=== PATIENT | male | born 1955 | race Caucasian/White ===

== ENCOUNTER 2016-09-06 15:48 | Inpatient (IN) | payer OTHER ==
[~2016-09-06] VITALS: Ht 167.6 cm; Wt 53.1 kg
[~2016-09-06 15:48] MED LIST: BICA50TA4 PO; DEC2 PO; DOCU-144 PO; DOCU100C26 PO; ENOX100D2 SC; ESCI10TA48 PO; HYDR2TAB15 PO; LACT20SO12 PO; LORA2VIA3 IV; MECL-77 PO; METH12VI SC; MORP-72 PO; ONDA4VIA2 IV; PANT40TA4 PO; POLY17PO6 GTB; SENN-117 PO; TYL500 PO; ZOLP5TAB PO
[2016-09-06] MEDS ORDERED: SOD CHLORIDE 0.9% 1,000 ML IV STA (18:05)
--- NOTE | 2016-09-06 18:34 | RADRPT ---
PROCEDURE: XR Chest. CLINICAL INDICATION: Abdominal pain. TECHNIQUE: Single frontal view of the chest was obtained. COMPARISON: 07/04/2016. FINDINGS: Cardiomediastinal silhouette appears normal Pulmonary vasculature appears normal. Lung banuelos appear clear. Costophrenic angles are well defined. The osseous elements appear intact. IMPRESSION: 1. No evidence for active cardiopulmonary disease. RPTAT: [facility] Paxton Davis Physician Date Time Electronically viewed and signed by Paxton Davis Physician on 09/06/2016 18:34 /
--- NOTE | 2016-09-06 18:44 | RADRPT ---
PROCEDURE: XR Pelvis 1 View. CLINICAL INDICATION: Pelvic pain TECHNIQUE: Single AP view of the pelvis. COMPARISON: CT July 04, 2016 FINDINGS: The osseous structures are intact. Diffuse patchy sclerosis is identified throughout all of the vis ualized osseous structures. Moderate narrowing of the bilateral hip joints is identified. Mild dege nerative changes are identified in the visualized lower lumbar spine and pubic symphysis. Soft tissu es surrounding the pelvis appear normal. IMPRESSION: Diffuse patchy sclerosis throughout all of the visualized osseous structures. 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 Degenerative changes in the lower lumbar spine and pubic symphysis. If further characterization is needed repeat CT or MRI could be helpful. RPTAT: AA .Danielito Rapp MD, Date Time Electronically viewed and signed by .Danielito Rapp MD, on 09/06/2016 18:44 .P/
[2016-09-06] MEDS ORDERED: ESCI5TAB10 PO (19:04)
[2016-09-06] MEDS ORDERED: MEG40/1 PO (19:04)
[2016-09-06] MEDS ORDERED: PANT40TA4 PO (19:05)
[2016-09-06] MEDS ORDERED: MORP15TA92 PO (19:06)
[2016-09-06] MEDS ORDERED: ONDA4TAB95 PO (19:07)
[2016-09-06] MEDS ORDERED: METH12VI SC (19:07)
[2016-09-06] MEDS ORDERED: LORA0.5T PO (19:08)
[2016-09-06] MEDS ORDERED: ZOLP5TAB6 PO (19:10)
[2016-09-06] MEDS ORDERED: LACT10SO5 PO (19:12)
[2016-09-06] MEDS ORDERED: HYDR4TAB PO (19:14)
[2016-09-06 20:20] LABS: ALBUMIN 2.9 g/dl (3.3-4.9); INR 1.4; PROTIME 17.2 Sec (12.2-14.2); PT RATIO 1.3
[2016-09-06 20:21] LABS: CHLORIDE 92 mmol/L (97-110); PARTIAL THROMBOPLASTIN TIME 46.3 Sec (25.0-35.0); SODIUM 131 mmol/L (135-144)
[2016-09-06 20:23] LABS: ASPARTATE AMINO TRANSFERASE 67 IU/L (15-46); BILIRUBIN,INDIRECT 0.6 mg/dl (0-1.1); BILIRUBIN,TOTAL 0.6 mg/dl (0.2-1.3); CARBON DIOXIDE 28 mmol/L (21-31); CREATININE 0.75 mg/dl (0.61-1.24)
[2016-09-06 20:24] LABS: ALANINE AMINOTRANSFERASE 35 IU/L (13-69); ALKALINE PHOSPHATASE 1073 IU/L (42-121); BLOOD UREA NITROGEN 25 mg/dl (7-20); CALCIUM 8.3 mg/dl (8.4-10.2); GLUCOSE 145 mg/dl (70-220); TOTAL PROTEIN 6.3 g/dl (6.1-8.1)
[2016-09-06 20:32] LABS: ALBUMIN/GLOBULIN RATIO 0.85; ANION GAP 15 (8-16)
[2016-09-06 20:41] LABS: HEMATOCRIT 21.1 % (42.0-52.0); MEAN CORPUSCULAR HEMOGLOBIN 26.5 pg (29.0-33.0); MEAN CORPUSCULAR HGB CONC 33.2 g/dl (32.0-37.0); MEAN CORPUSCULAR VOLUME 79.7 fl (82.0-101.0); MEAN PLATELET VOLUME 8.6 fl (7.4-10.4); PLATELET COUNT 55 10^3/UL (140-440); RED BLOOD COUNT 2.64 10^6/ul (4.70-6.10); RED CELL DISTRIBUTION WIDTH 22.1 % (11.5-14.5); UNCORRECTED WBC 5.8 10^3/ul (4.8-10.8); WHITE BLOOD COUNT 5.8 10^3/ul (4.8-10.8)
[2016-09-06 20:48] LABS: CONDITION 1; LH ANALYZER COMMENTS 1
[2016-09-06 20:53] LABS: TROPONIN-I < 0.012 ng/ml (0.00-0.12)
--- NOTE | 2016-09-06 21:12 | ERA ---
ER Documentation Chief Complaint Date/Time DATE: 09/06/16 TIME: 20:58 Chief Complaint sent by pmd for low bp, more confused than normal HPI 60-year-old man referred here by his radiation oncologist for weakness and dehydration. 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 His is having trouble managing his symptoms at home and states he has not been eating or drinking much over the last week and has been feeling more and more weak lately. He has complaints of generalized weakness to his lower extremities and family states she is dehydrated. He has had no blood per rectum or melena, no fevers or chills, no cough, no complaints of chest pain or shortness of breath. He has not recently had chemotherapy or hormonal therapy. Patient has been receiving heavy doses of oral opioid therapy for pain control. ROS All systems reviewed and are negative except as per history of present illness. Medications Home Meds Active Scripts Meclizine Hcl* (Meclizine Hcl*) 25 Mg Tablet, 25 MG PO TID for 7 Days, TAB Prov:KENDAL BELLO 08/04/16 Polyethylene Glycol* (Miralax*) 17 Gm Powd.pack, 17 GM GTB DAILY for 7 Days Prov:KENDAL BELLO 08/04/16 Reported Medications Hydromorphone Hcl* (Hydromorphone Hcl*) 4 Mg Tablet, 4 MG PO Q6 Y for PAIN, TAB 09/06/16 Lactulose* (Lactulose*) 10 Gm/15 Ml Solution, 30 ML PO Q8, ML 09/06/16 Zolpidem Tartrate* (Zolpidem Tartrate*) 5 Mg Tablet, 10 MG PO QHS Y for INSOMNIA , #30 TAB 09/06/16 Lorazepam* (Lorazepam*) 0.5 Mg Tablet, 0.5 MG PO Q6, TAB 09/06/16 Ondansetron Hcl* (Ondansetron Hcl*) 4 Mg Tablet, 4 MG PO Q6H Y for NAUSEA AND/ OR VOMITING, TAB 09/06/16 Methylnaltrexone [place]* (Relistor*) 12 Mg/0.6 Ml Vial, 12 MG SC Q48H, VIAL 09/06/16 Morphine Sulfate* (Ms Contin*) 15 Mg Tablet.sa, 15 MG PO Q12, TAB 09/06/16 Pantoprazole* (Pantoprazole*) 40 Mg Tablet.dr, 40 MG PO AC BREAKFAST, TAB 09/06/16 Megestrol Acetate* (Megestrol Acetate*) 400 Mg/10 Ml Susp, 400 MG PO BID, ML 09/06/16 Escitalopram Oxalate* (Escitalopram Oxalate*) 5 Mg Tablet, 5 MG PO DAILY, #30 TAB 09/06/16 Docusate Sodium* (Doc-Q-Lace*) 100 Mg Capsule, 100 MG PO BID Y for CONSTIPATION , CAP 05/26/16 Bicalutamide* (Bicalutamide*) 50 Mg Tablet, 50 MG PO QAM, TAB 05/26/16 Discontinued Scripts Enoxaparin Sodium (Enoxaparin Sodium) 100 Mg/1 Ml Syringe, 95 MG SC Q24H for 7 Days Prov:KENDAL BELLO 08/04/16 Docusate Sodium* (Colace*) 100 Mg Capsule, 100 MG PO BID Y for CONSTIPATION for 7 Days, CAP Prov:KENDAL BELLO 08/04/16 Dexamethasone* (Decadron*) 2 Mg Tab, 6 MG PO BID for 7 Days, TAB Prov:KENDAL BELLO 08/04/16 Acetaminophen* (Tylenol*) 500 Mg Tab, 500 MG PO Q4H Y for PAIN AND OR ELEVATED TEMP for 7 Days, TAB Prov:KENDAL BELLO 08/04/16 Escitalopram Oxalate* (Escitalopram Oxalate*) 10 Mg Tablet, 5 MG PO DAILY for 7 Days, TAB Prov:KENDAL BELLO 08/04/16 Hydromorphone Hcl* (Dilaudid*) 2 Mg Tablet, 4 MG PO Q4H Y for PAIN for 7 Days, TAB Prov:KENDAL BELLO 08/04/16 Lactulose* (Cephulac*) 20 Gm/30 Ml Soln, 30 GM PO Q8 Y for CONSTIPATION for 7 Days Prov:KENDAL BELLO 08/04/16 Lorazepam (Lorazepam) 2 Mg/1 Ml Vial, 0.5 MG IV Q6H Y for ANXIETY for 7 Days, VIAL Prov:KENDAL BELLO 08/04/16 Methylnaltrexone [place]* (Relistor*) 12 Mg/0.6 Ml Vial, 12 MG SC Q48H for 7 Days, VIAL Prov:KENDAL BELLO 08/04/16 Ondansetron Hcl* (Ondansetron Hcl* Inj) 4 Mg/2 Ml Vial, 4 MG IV Q6H Y for NAUSEA AND/OR VOMITING for 7 Days, VIAL Prov:KENDAL BELLO 08/04/16 Morphine Sulfate* (Ms Contin ER*) 15 Mg Tabsr, 45 MG PO BID for 7 Days, TAB Prov:KENDAL BELLO 08/04/16 Pantoprazole* (Pantoprazole*) 40 Mg Tablet.dr, 40 MG PO DAILY@06 for 7 Days Prov:KENDAL BELLO 08/04/16 Sennosides/Docusate Sodium (Senna-Time S Tablet) 1 Each Tablet, 2 TAB PO BID for 7 Days, TAB Prov:KENDAL BELLO 08/04/16 Zolpidem Tartrate (Ambien Jhony) 5 Mg Tablet, 10 MG PO HS Y for INSOMNIA for 7 Days, TAB Prov:KENDAL BELLO 08/04/16 Allergies Allergies: Coded Allergies: No Known Allergy (Unverified , 09/06/16) PMhx/Soc Metastatic prostate cancer, T12 spinal canal stenosis, recurrent UTIs, anemia, left calf DVT History of Surgery: No Anesthesia Reaction: No Hx 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 Disorder: No Hx Respiratory Disorders: No Hx Cardiac Disorders: No Hx Psychiatric Problems: No Hx Miscellaneous Medical Probl: Yes (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, PNA, discogenic disease) Hx Alcohol Use: No Hx Substance Use: No Hx Tobacco Use: No Smoking Status: Never smoker FmHx Family History: No diabetes Physical Exam Vitals Vital Signs Date Time Temp Pulse Resp B/P Pulse Ox O2 Delivery O2 Flow Rate FiO2 09/06/16 19:33 110 90/62 09/06/16 19:18 Nasal Cannula 09/06/16 16:59 115/63 09/06/16 15:53 97.3 133 18 97/60 96 Physical Exam GENERAL: Elderly, dehydrated man, appears sedate secondary to heavy opioid use HEENT: Dry mucous membranes, pale conjunctiva, no cervical spine tenderness or step-off deformities, no goiter, no jaundice or icterus, extraocular movements intact without pain. No submandibular induration, and no pharyngeal erythema NEURO: Alert and oriented 1, no focal deficits or facial asymmetry, pupils constricted and minimally reactive, able to answer simple questions and follows simple commands CARDIAC: Tachycardic and regular, no murmurs rubs or gallops LUNGS: Clear bilaterally no wheezing crackles or stridor ABDOMEN: Soft nontender, no guarding, no rigidity, no rebound, no psoas sign no obturator sign. Normoactive bowel sounds SKIN: Warm and dry to touch, no abrasions, contusions, or hematomas, no lacerations, no ecchymosis, no target lesions, and without ulcers EXTREMITIES: No clubbing cyanosis or edema, calves are bilaterally symmetrical, no Homans sign, no popliteal cord sign. Distal pulses equal and bilateral PSYCH: Normal affect without agitation or irritability Result Diagram: 09/06/16194409/06/161944 Results 24 hrs Laboratory Tests Test 09/06/16 19:45 Activated Partial Thromboplast Time 46.3Sec Alanine Aminotransferase (ALT/SGPT) 35IU/L Albumin 2.9g/dl Albumin/Globulin Ratio 0.85 Alkaline Phosphatase 1073IU/L Anion Gap 15 Aspartate Amino Transf (AST/SGOT) 67IU/L Blood Morphology Comment Blood Urea Nitrogen 25mg/dl Calcium Level 8.3mg/dl Carbon Dioxide Level 28mmol/L Chloride Level 92mmol/L Creatinine 0.75mg/dl Direct Bilirubin 0.00mg/dl Globulin 3.40g/dl Glucose Level 145mg/dl Hematocrit 21.1% Hemoglobin 7.0g/dl INR International Normalized Ratio 1.40 Indirect Bilirubin 0.6mg/dl Lipase < 10U/L Mean Corpuscular Hemoglobin 26.5pg Mean Corpuscular Hemoglobin Concent 33.2g/dl Mean Corpuscular Volume 79.7fl Mean Platelet Volume 8.6fl Nucleated Red Blood Cells # 10^3/ul Platelet Count 5510^3/UL Potassium Level 4.0mmol/L Prothrombin Time 17.2Sec Prothrombin Time Ratio 1.3 Red Blood Count 2.6410^6/ul Red Cell Distribution Width 22.1% Sodium Level 131mmol/L Total Bilirubin 0.6mg/dl Total Protein 6.3g/dl Troponin I < 0.012ng/ml White Blood Count 5.810^3/ul Current Medications Medications (Trade) Dose Ordered Sig/Salma Route PRN Reason Start Time Stop Time Status Last Admin Dose Admin Sodium Chloride (NS) 1,000 ml @ 2,000 mls/hr Q30M STAT IV 09/06/16 18:05 09/06/16 18:34 DC 09/06/16 18:05 Procedures/MDM IV line was established patient was placed on air sampling and monitoring rhythm strip revealed a sinus tachycardia at 110 bpm with upright P and T waves. Patient was afebrile but hypotensive. I administered 2 L normal saline intravenously for dehydration and initial hypotension. One view chest x-ray performed, read by me and there are no acute infiltrates, no pneumothorax, no air under the diaphragm. There is patchy sclerotic lesions to the humerus bilaterally consistent with metastatic disease. One view pelvis x-ray performed, read by me no acute fracture or dislocations noted, diffuse sclerotic lesions noted throughout the bones consistent with metastatic disease. EKG performed, read by me revealed a sinus tachycardia at 114 bpm, normal axis, no acute ST changes, narrow QRS complex. CBC revealed anemia with a hemoglobin of 7 and given his initial hypotension I ordered transfusion 2 units PRBCs IV over 4 hours. Electrolytes revealed dehydration with a BUN/creatinine of 25/0.8, liver function tests reveal elevated alkaline phosphatase consistent with bony metastasis. Urine analysis is also been ordered if positive I will treat here with IV antibiotics. Critical Care: Time: 31 minutes, this was time separate from other procedures. Treatments/Evaluations: Close monitoring and treatment of unstable vital signs, cardiorespiratory, and neurologic status, while maintaining tight balance of fluid, respiratory, and cardiac interventions. Patient was initially hypotensive upon arrival of the blood pressure has improved. He will be admitted for continued medical management and pain control. Departure Diagnosis: Primary Impression: Hypotension Qualified Code: I95.9 - Hypotension, unspecified hypotension type Additional Impressions: Dehydration Anemia Qualified Code: D64.9 - Anemia, unspecified type Intractable pain Prostate carcinoma Condition: AMRLY Loaiza MD Sep 06, 2016 21:09
[2016-09-06 21:57] LABS: ADD UMIC YES; URINE BILIRUBIN (Dip) 2+ (NEGATIVE); URINE BLOOD (Dip) NEGATIVE (NEGATIVE); URINE COLOR AMBER (YELLOW); URINE GLUCOSE (Dip) NEGATIVE (NEGATIVE); URINE KETONES (Dip) 15 (NEGATIVE); URINE LEUKOCYTE ESTERASE (Dip) NEGATIVE (NEGATIVE); URINE NITRITE (Dip) POSITIVE (NEGATIVE); URINE TOTAL PROTEIN (Dip) 1+ (NEGATIVE); URINE UROBILINOGEN (Dip) 1.0 E.U./dL (0.1-1.0)
[2016-09-06 22:04] LABS: LYMPHOCYTES # 0.5 10^3/ul (0.8-2.9); MONOCYTE # 0.8 10^3/ul (0.3-0.9); NEUTROPHIL # 3.7 10^3/ul (1.6-7.5)
[2016-09-06 22:05] LABS: PLATELET ESTIMATE PLT APPEAR DECREASED
--- NOTE | 2016-09-06 22:11 | RADRPT ---
PROCEDURE: CT BRAIN WITHOUT CONTRAST CLINICAL INDICATION: 60 year old male with change in mental status. TECHNIQUE: The study was performed utilizing [employer] VCT 64-slice CT scanner. Direct axial sections were obtained from the foramen magnum to the vertex without the use of intravenous contrast material. Sagittal and coronal reformations were obtained. The images were viewed on a PACS workst ation. CTD/vol = 44.3 mGy; Total Exam DLP = 720.2 mGy-cm. COMPARISON: None. FINDINGS: There is mild prominence of the sulci and cisternal spaces consistent with diffuse volume loss. Oth erwise, the ventricles have a normal shape and position. There is no evidence for mass effect or mid line shift. 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 There is no evidence for acute intra or extra-axial blood. The bony calvarium is intact. There is mild muc osal thickening identified within the dependent portion of the sphenoid sinuses bilaterally. The pa rtially visualized mastoid air cells are without significant soft tissue. IMPRESSION: 1. Mild diffuse volume loss. 2. 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 3. Mild mucosal thickening sphenoid sinuses. .Capo Krishnamurthy MD, MD Date Time Electronically viewed and signed by .Capo Krishnamurthy MD, on 09/06/2016 22:11 .M/
[2016-09-06 22:16] LABS: ICTOTEST NEGATIVE (NEGATIVE); SQUAMOUS EPITHELIAL CELL,UR FEW; URINE RBCS NONE SEEN /HPF (0)
[2016-09-06 22:17] LABS: BACTERIA,URINE MANY
--- NOTE | 2016-09-06 23:18 | HP ---
Date/Time of Note Date/Time of Note DATE: 09/06/16 TIME: 23:16 Assessment/Plan VTE Prophylaxis VTE Prophylaxis Intervention: other Assessment/Plan Assessment/Plan 1.Hypotension sec to Hypotension - ivf - monitor labs 2.Dehydration/slightly elevated BUN - Cont IVF - monitor BUN/CR- will et nephrology consult when needed. 3.Anemia - monitor H/H 4.Intractable pain/ Acute on chronic back pain. - pain management consult appreciated Dilaudid p.r.n. for breakthrough pain. 5.Metastatic prostate cancer. - sp Radiation therapy by Dr Ghassan Hylton - oncology consult appreciated- Dr Silva - diietary consult 6.Thrombocytopenia. Continue to monitor platelets. - monitor for s/s of bleeding 7. Diffuse osteoblastic osseous metastatic disease per pelvis xray - per oncologist PLAN: Admit to Med Surg See admission orders DW daughter- Kellie, multiple concerns- will get group social worker, lead case manager for placement. Plan of care dw Dr Bergeron/staff. Continue Protonix for peptic ulcer disease prophylaxis. Further recommendations based on clinical course. Plan of care discussed with Dr. Nichols. HPI/ROS Admit Date/Time Admit Date/Time Hx of Present Illness sent by pmd for low bp, more confused than normal HPI 60-year-old man referred here by his radiation oncologist for weakness and dehydration. 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 His is having trouble managing his symptoms at home and states he has not been eating or drinking much over the last week and has been feeling more and more weak lately. He has complaints of generalized weakness to his lower extremities and family states she is dehydrated. He has had no blood per rectum or melena, no fevers or chills, no cough, no complaints of chest pain or shortness of breath. He has not recently had chemotherapy or hormonal therapy. Patient has been receiving heavy doses of oral opioid therapy for pain control. ROS All systems reviewed and are negative except as per history of present illness. Medications Home Meds Active Scripts Meclizine Hcl* (Meclizine Hcl*) 25 Mg Tablet, 25 MG PO TID for 7 Days, TAB Prov:KENDAL BELLO 08/04/16 Polyethylene Glycol* (Miralax*) 17 Gm Powd.pack, 17 GM GTB DAILY for 7 Days Prov:KENDAL BELLO 08/04/16 Reported Medications Hydromorphone Hcl* (Hydromorphone Hcl*) 4 Mg Tablet, 4 MG PO Q6 Y for PAIN, TAB 09/06/16 Lactulose* (Lactulose*) 10 Gm/15 Ml Solution, 30 ML PO Q8, ML 09/06/16 Zolpidem Tartrate* (Zolpidem Tartrate*) 5 Mg Tablet, 10 MG PO QHS Y for INSOMNIA , #30 TAB 09/06/16 Lorazepam* (Lorazepam*) 0.5 Mg Tablet, 0.5 MG PO Q6, TAB 09/06/16 Ondansetron Hcl* (Ondansetron Hcl*) 4 Mg Tablet, 4 MG PO Q6H Y for NAUSEA AND/ OR VOMITING, TAB 09/06/16 Methylnaltrexone [place]* (Relistor*) 12 Mg/0.6 Ml Vial, 12 MG SC Q48H, VIAL 09/06/16 Morphine Sulfate* (Ms Contin*) 15 Mg Tablet.sa, 15 MG PO Q12, TAB 09/06/16 Pantoprazole* (Pantoprazole*) 40 Mg Tablet.dr, 40 MG PO AC BREAKFAST, TAB 09/06/16 Megestrol Acetate* (Megestrol Acetate*) 400 Mg/10 Ml Susp, 400 MG PO BID, ML 09/06/16 Escitalopram Oxalate* (Escitalopram Oxalate*) 5 Mg Tablet, 5 MG PO DAILY, #30 TAB 09/06/16 Docusate Sodium* (Doc-Q-Lace*) 100 Mg Capsule, 100 MG PO BID Y for CONSTIPATION , CAP 05/26/16 Bicalutamide* (Bicalutamide*) 50 Mg Tablet, 50 MG PO QAM, TAB 05/26/16 Discontinued Scripts Enoxaparin Sodium (Enoxaparin Sodium) 100 Mg/1 Ml Syringe, 95 MG SC Q24H for 7 Days Prov:KENDAL BELLO 08/04/16 Docusate Sodium* (Colace*) 100 Mg Capsule, 100 MG PO BID Y for CONSTIPATION for 7 Days, CAP Prov:KENDAL BELLO 08/04/16 Dexamethasone* (Decadron*) 2 Mg Tab, 6 MG PO BID for 7 Days, TAB Prov:KENDAL BELLO 08/04/16 Acetaminophen* (Tylenol*) 500 Mg Tab, 500 MG PO Q4H Y for PAIN AND OR ELEVATED TEMP for 7 Days, TAB Prov:KENDAL BELLO 08/04/16 Escitalopram Oxalate* (Escitalopram Oxalate*) 10 Mg Tablet, 5 MG PO DAILY for 7 Days, TAB Prov:KENDAL BELLO 08/04/16 Hydromorphone Hcl* (Dilaudid*) 2 Mg Tablet, 4 MG PO Q4H Y for PAIN for 7 Days, TAB Prov:KENDAL BELLO 08/04/16 Lactulose* (Cephulac*) 20 Gm/30 Ml Soln, 30 GM PO Q8 Y for CONSTIPATION for 7 Days Prov:KENDAL BELLO 08/04/16 Lorazepam (Lorazepam) 2 Mg/1 Ml Vial, 0.5 MG IV Q6H Y for ANXIETY for 7 Days, VIAL Prov:KENDAL BELLO 08/04/16 Methylnaltrexone [place]* (Relistor*) 12 Mg/0.6 Ml Vial, 12 MG SC Q48H for 7 Days, VIAL Prov:KENDAL BELLO 08/04/16 Ondansetron Hcl* (Ondansetron Hcl* Inj) 4 Mg/2 Ml Vial, 4 MG IV Q6H Y for NAUSEA AND/OR VOMITING for 7 Days, VIAL Prov:KENDAL BELLO 08/04/16 Morphine Sulfate* (Ms Contin ER*) 15 Mg Tabsr, 45 MG PO BID for 7 Days, TAB Prov:KENDAL BELLO 08/04/16 Pantoprazole* (Pantoprazole*) 40 Mg Tablet.dr, 40 MG PO DAILY@06 for 7 Days Prov:KENDAL BELLO 08/04/16 Sennosides/Docusate Sodium (Senna-Time S Tablet) 1 Each Tablet, 2 TAB PO BID for 7 Days, TAB Prov:KENDAL BELLO 08/04/16 Zolpidem Tartrate (Ambien Jhony) 5 Mg Tablet, 10 MG PO HS Y for INSOMNIA for 7 Days, TAB Prov:KENDAL BELLO 08/04/16 Allergies Allergies: Coded Allergies: No Known Allergy (Unverified , 09/06/16) ROS PMhx/Soc Metastatic prostate cancer, T12 spinal canal stenosis, recurrent UTIs, anemia, left calf DVT History of Surgery: No Anesthesia Reaction: No Hx 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 Disorder: No Hx Respiratory Disorders: No Hx Cardiac Disorders: No Hx Psychiatric Problems: No Hx Miscellaneous Medical Probl: Yes (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, PNA, discogenic disease) Hx Alcohol Use: No Hx Substance Use: No Hx Tobacco Use: No Smoking Status: Never smoker FmHx Family History: No diabetes Subjective hx not possible: other Eyes: no complaints ENT: no complaints Respiratory: no complaints Cardiovascular: no complaints Gastrointestinal: no complaints Genitourinary: no complaints Musculoskeletal: back pain Skin: no complaints Neurologic: no complaints Endocrine: no complaints Lymphatic: no complaints PMH/Family/Social Past Medical History Metastatic prostate cancer, T12 spinal canal stenosis, recurrent UTIs, anemia, left calf DVT, 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, PNA, discogenic disease. Social History Smoking Status: Never smoker Exam/Review of Systems Vital Signs Vitals Vital Signs Date Time Temp Pulse Resp B/P Pulse Ox O2 Delivery O2 Flow Rate FiO2 09/06/16 19:33 110 90/62 09/06/16 19:18 Nasal Cannula 09/06/16 15:53 97.3 18 96 Exam Constitutional: alert, frail, well developed Psych: nl mood/affect Eyes: EOMI, PERRL, nl sclera ENMT: nl external ears & nose Neck: non-tender Respiratory: clear to auscultation Cardiovascular: nl pulses Gastrointestinal: non-tender, soft Musculoskeletal: nl extremities to inspection Extremities: normal pulses 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: nl speech, other Skin: other Lymph: nontender Labs Result Diagram: 09/06/16194409/06/161944 Procedures Procedures PROCEDURE: XR Pelvis 1 View. CLINICAL INDICATION: Pelvic pain TECHNIQUE: Single AP view of the pelvis. COMPARISON: CT July 04, 2016 FINDINGS: The osseous structures are intact. Diffuse patchy sclerosis is identified throughout all of the visualized osseous structures. Moderate narrowing of the bilateral hip joints is identified. Mild degenerative changes are identified in the visualized lower lumbar spine and pubic symphysis. Soft tissues surrounding the pelvis appear normal. IMPRESSION: Diffuse patchy sclerosis throughout all of the visualized osseous structures. Findings are compatible with diffuse osteoblastic osseous metastatic disease. 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 Degenerative changes in the lower lumbar spine and pubic symphysis. PROCEDURE: XR Chest. CLINICAL INDICATION: Abdominal pain. TECHNIQUE: Single frontal view of the chest was obtained. COMPARISON: 07/04/2016. FINDINGS: Cardiomediastinal silhouette appears normal Pulmonary vasculature appears normal. Lung banuelos appear clear. Costophrenic angles are well defined. The osseous elements appear intact. IMPRESSION: 1. No evidence for active cardiopulmonary disease. KENDAL BELLO Sep 06, 2016 23:18
[2016-09-07 00:23] VITALS: TEMP 97.8
[2016-09-07 01:00] VITALS: BP 94/54; PULSE 108; RESP 17
[2016-09-07 01:32] VITALS: BMI 19.6
[2016-09-07] MEDS: LEVOFLOXACIN 250MG/D5W (PMX) 50 ML IVPB SCH (03:06)
[2016-09-07] MEDS: METHYLNALTREXONE 12 MG/0.6 ML VIAL SC SCH (03:06)
[2016-09-07] MEDS: LORAZEPAM 0.5 MG TAB PO SCH ×5 (06:00→23:32)
[2016-09-07] MEDS: LACTULOSE 30ML CUP PO SCH ×3 (06:31→20:52)
[2016-09-07] MEDS: SOD CHLORIDE 0.9% 1,000 ML IV SCH ×3 (06:33→20:53)
[2016-09-07 08:00] VITALS: BP 106/63; PULSE 109; RESP 18
[2016-09-07 08:35] LABS: HEMATOCRIT 23.5 % (42.0-52.0); MEAN CORPUSCULAR HEMOGLOBIN 28.4 pg (29.0-33.0); MEAN CORPUSCULAR HGB CONC 34.1 g/dl (32.0-37.0); MEAN CORPUSCULAR VOLUME 83.4 fl (82.0-101.0); MEAN PLATELET VOLUME 7.7 fl (7.4-10.4); PLATELET COUNT 41 10^3/UL (140-440); RED BLOOD COUNT 2.81 10^6/ul (4.70-6.10); RED CELL DISTRIBUTION WIDTH 18.7 % (11.5-14.5); UNCORRECTED WBC 4.7 10^3/ul (4.8-10.8); WHITE BLOOD COUNT 4.7 10^3/ul (4.8-10.8)
[2016-09-07 08:39] LABS: CONDITION 1; LH ANALYZER COMMENTS 1
[2016-09-07 08:44] LABS: POTASSIUM 3.3 mmol/L (3.5-5.1)
[2016-09-07 08:47] LABS: CALCIUM 7.8 mg/dl (8.4-10.2); CREATININE 0.42 mg/dl (0.61-1.24)
[2016-09-07] MEDS: morphine (ER) 15 MG TAB PO SCH ×2 (09:16→20:52)
[2016-09-07] MEDS: MEGESTROL (40 MG/ML) 10ML CUP PO SCH ×2 (09:16→20:52)
[2016-09-07] MEDS: MECLIZINE 25 MG TAB PO SCH ×3 (09:16→20:51)
[2016-09-07] MEDS: POLYETHYLENE GLYCOL 17 GM PACKET GTB SCH (09:17)
[2016-09-07] MEDS: ESCITALOPRAM 10 MG TAB PO SCH (09:17)
[2016-09-07] MEDS: PANTOPRAZOLE (EC) 40 MG TAB PO SCH (09:20)
[2016-09-07 11:00] LABS: ANISOCYTOSIS 1+; HYPOCHROMASIA 1+; LYMPHOCYTES # 0.2 10^3/ul (0.8-2.9); MONOCYTE # 0.3 10^3/ul (0.3-0.9); NEUTROPHIL # 3.8 10^3/ul (1.6-7.5); NUCLEATED RED BLOOD CELLS% 7.7 /100WBC (0.0-0.0); PLATELET ESTIMATE PLT APPEAR DECREASED
[2016-09-07] MEDS ORDERED: POTASSIUM CHLORIDE (SR) 20 MEQ TAB PO STA (16:55)
[2016-09-07] MEDS: BICALUTAMIDE 50 MG TAB PO SCH (17:31)
[2016-09-07 20:00] VITALS: BP 93/57; PULSE 100; RESP 20
[2016-09-07] MEDS: IMIPENEM-CILAST 500MG IV (PMX) 100 ML IVPB SCH (23:32)
[2016-09-08] MEDS: LEVOFLOXACIN 250MG/D5W (PMX) 50 ML IVPB SCH (00:48)
[2016-09-08] MEDS: LORAZEPAM 0.5 MG TAB PO SCH ×3 (05:36→17:52)
[2016-09-08] MEDS: LACTULOSE 30ML CUP PO SCH ×3 (05:36→21:07)
[2016-09-08] MEDS: IMIPENEM-CILAST 500MG IV (PMX) 100 ML IVPB SCH ×3 (05:36→19:57)
[2016-09-08 06:07] LABS: HEMATOCRIT 23.5 % (42.0-52.0); HEMOGLOBIN 7.9 g/dl (14.0-18.0); LYMPHOCYTES # 0.8 10^3/ul (0.8-2.9); MEAN CORPUSCULAR HEMOGLOBIN 28.4 pg (29.0-33.0); MEAN CORPUSCULAR HGB CONC 33.7 g/dl (32.0-37.0); MEAN CORPUSCULAR VOLUME 84.3 fl (82.0-101.0); MONOCYTE # 0.6 10^3/ul (0.3-0.9); PLATELET COUNT 38 10^3/UL (140-440); RED BLOOD COUNT 2.79 10^6/ul (4.70-6.10); UNCORRECTED WBC 4.4 10^3/ul (4.8-10.8); WHITE BLOOD COUNT 4.4 10^3/ul (4.8-10.8)
[2016-09-08 06:24] LABS: CONDITION 1; LH ANALYZER COMMENTS 1; MEAN PLATELET VOLUME 7.8 fl (7.4-10.4); NUCLEATED RED BLOOD CELLS # 0.2 10^3/ul (0.0-0.0)
[2016-09-08 06:29] LABS: POTASSIUM 3.3 mmol/L (3.5-5.1)
[2016-09-08 06:31] LABS: ALBUMIN/GLOBULIN RATIO 0.76; BILIRUBIN,INDIRECT 0.3 mg/dl (0-1.1); BILIRUBIN,TOTAL 0.3 mg/dl (0.2-1.3); CREATININE 0.36 mg/dl (0.61-1.24); TOTAL PROTEIN 4.6 g/dl (6.1-8.1)
[2016-09-08 06:32] LABS: CALCIUM 7.6 mg/dl (8.4-10.2)
[2016-09-08] MEDS: MEGESTROL (40 MG/ML) 10ML CUP PO SCH ×2 (09:00→21:04)
--- NOTE | 2016-09-08 09:48 | CONS ---
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 Irene Zhu and managed by Dr. Suzan Hernandez, referred to [facility] for weakness and dehydration. He has not seen Dr. Hernandez in awhile. # Anemia and thrombocytopenia, with evidence of myelocytes, metamyelocytes and nucleated RBCs on differential concerning for bone marrow involvement of metastatic prostate cancer - Path smear to be reviewed by pathology - Workup including retic count, iron panel, ferritin, B12, folate, LDH, HIV, Hep panel, and DIC panel ordered - Continue to follow counts, goal > 8, plt > 10 or if bleeding. Will give 1 unit pRBCs today # Metastatic prostate cancer, s/p radiation for cord compression per Dr. Zhu in the past - Requesting records from Dr. Hernandez and Dr. 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 Irene Zhu and managed by Dr. Suzan Hernandez, referred to [facility] for weakness and dehydration. He has not seen Dr. Hernandez in awhile; I do not have those records but have requested them. I do know that he was given Casodex this morning by his nurse. The patient is arousable but quite somnolent due to morphine. He is able to answer in Bengali that he has no pain , and feels well, but cannot answer more details about his treatment or past medical history. Unable to obtain due to somnolence Psychological: nl mood/affect Past Medical History Metastatic prostate cancer with bony mets and h/o T12 spinal canal stenosis, recurrent UTIs, anemia, left calf DVT Social History Smoking Status: Former smoker Exam/Review of Systems Vital Signs Vitals Vital Signs Date Time Temp Pulse Resp B/P Pulse Ox O2 Delivery O2 Flow Rate FiO2 09/07/16 20:00 100.0 100 20 93/57 96 Room Air Intake and Output 09/07/16 09/07/16 09/08/16 15:00 23:00 07:00 Intake Total 1290 ml 50 ml Output Total 550 ml 400 ml Balance 740 ml -350 ml Exam Constitutional: other (somnolent but arousable briefly) Psych: no complaints Head: normocephalic Eyes: nl conjunctiva Neck: non-tender, supple Respiratory: clear to auscultation Cardiovascular: other (tachycardic) Gastrointestinal: non-tender, soft Musculoskeletal: nl extremities to inspection 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: lethargic Results Result Diagram: 09/08/16 0535 09/08/16 0535 Results 24 hrs Laboratory Tests Test 09/08/16 05:35 Alanine Aminotransferase (ALT/SGPT) 31 Albumin 2.0 L Albumin/Globulin Ratio 0.76 Alkaline Phosphatase 680 H Anion Gap 8 Aspartate Amino Transf (AST/SGOT) 53 H Basophils # 0.0 Basophils % 0.3 Blood Morphology Comment Blood Urea Nitrogen 9 Calcium Level 7.6 L Carbon Dioxide Level 26 Chloride Level 104 Creatinine 0.36 L Direct Bilirubin 0.00 Eosinophils # 0.0 Eosinophils % 0.2 Globulin 2.60 Glucose Level 90 Hematocrit 23.5 L Hemoglobin 7.9 L Indirect Bilirubin 0.3 Lymphocytes # 0.8 Lymphocytes % 18.1 Mean Corpuscular Hemoglobin 28.4 L Mean Corpuscular Hemoglobin Concent 33.7 Mean Corpuscular Volume 84.3 Mean Platelet Volume 7.8 Monocytes # 0.6 Monocytes % 13.6 H Neutrophils # 3.0 Neutrophils % 67.8 Nucleated Red Blood Cells # 0.2 H Nucleated Red Blood Cells % 3.5 H Platelet Count 38 L Potassium Level 3.3 L Red Blood Count 2.79 L Red Cell Distribution Width 19.0 H Sodium Level 135 Total Bilirubin 0.3 Total Protein 4.6 #L White Blood Count 4.4 L Medications Medications Current Medications Sodium Chloride (NS) 1,000 ml @ 80 mls/hr [id number] IV Last administered on at 20:53; Admin Dose 80 MLS/HR; Start 09/06/16 at 23:30 Bicalutamide (Casodex) 50 mg QAM PO Last administered on 09/07/16at 17:31; Admin Dose 50 MG; Start 09/07/16 at 09:00 Docusate Sodium (Colace) 100 mg BID PRN PO CONSTIPATION; Start 09/07/16 at 00: 00 Escitalopram Oxalate (Lexapro) 5 mg DAILY PO Last administered on 09/07/16at 09 :17; Admin Dose 5 MG; Start 09/07/16 at 09:00 Hydromorphone HCl (Dilaudid) 4 mg Q6H PRN PO PAIN; Start 09/07/16 at 00:00 Lactulose (Enulose) 20 gm Q8 PO Last administered on 09/08/16at 05:36; Admin Dose 20 GM; Start 09/07/16 at 06:00 Lorazepam (Ativan) 0.5 mg Q6 PO Last administered on 09/08/16 05:36; Admin Dose 0.5 MG; Start 09/07/16 at 00:00 Meclizine HCl (Antivert) 25 mg TID PO Last administered on 09/07/16 20:51; Admin Dose 25 MG; Start 09/07/16 at 09:00 Megestrol Acetate (Megace Susp) 400 mg BID PO Last administered on 09/07/16at 20:52; Admin Dose 400 MG; Start 09/07/16 at 09:00 Methylnaltrexone [place] (Relistor) 12 mg Q48H SC Last administered on at 03:06; Admin Dose 12 MG; Start 09/07/16 at 00:00 Morphine Sulfate (Ms Contin (Er)) 15 mg Q12 PO Last administered on 09/07/16at 20:52; Admin Dose 15 MG; Start 09/07/16 at 09:00 Ondansetron HCl (Zofran Tab) 4 mg Q6H PRN PO NAUSEA AND/OR VOMITING; Start at 00:00 Polyethylene Glycol 17 gm 17 gm DAILY GTB Last administered on 09/07/16 09:17 ; Admin Dose 17 GM; Start 09/07/16 at 09:00 Levofloxacin/ Dextrose (Levaquin 250 Mg/ D5W 50 ml (Pmx)) 50 ml @ 50 mls/hr Q24H IVPB Last administered on 09/08/16at 00:48; Admin Dose 50 MLS/HR; Start 09/07/16 at 00:30 Acetaminophen 500 mg 500 mg Q4H PRN PO PAIN AND OR ELEVATED TEMP; Start at 21:30 Imipenem/ Cilastatin Sodium (Primaxin 500 Mg/ 100 ml (Pmx)) 100 ml @ 100 mls/ hr Q6 IVPB Last administered on 09/08/16at 05:36; Admin Dose 100 MLS/HR; Start 09/08/16 at 00:00 TOBRYON MD Sep 08, 2016 09:44
[2016-09-08] MEDS: MECLIZINE 25 MG TAB PO SCH ×3 (09:58→21:03)
[2016-09-08] MEDS: ESCITALOPRAM 10 MG TAB PO SCH (09:59)
[2016-09-08] MEDS: PANTOPRAZOLE (EC) 40 MG TAB PO SCH (09:59)
[2016-09-08] MEDS: morphine (ER) 15 MG TAB PO SCH ×2 (09:59→21:04)
[2016-09-08] MEDS: POLYETHYLENE GLYCOL 17 GM PACKET GTB SCH (10:00)
[2016-09-08] MEDS: BICALUTAMIDE 50 MG TAB PO SCH (10:07)
[2016-09-08 11:30] LABS: HAAIG REFLEX REFLEX FILED
[2016-09-08 11:49] LABS: INR 1.41; PROTIME 17.3 Sec (12.2-14.2); PT RATIO 1.4
[2016-09-08 11:50] LABS: PARTIAL THROMBOPLASTIN TIME 45.2 Sec (25.0-35.0); THROMBIN TIME 13.6 SEC (13.8-19.1)
[2016-09-08 11:52] LABS: PLATELET COUNT 41 10^3/UL (140-440)
[2016-09-08 12:08] LABS: FIBRIN SPLIT PRODUCT >40 and <80 ug/ml (<10)
[2016-09-08 12:31] LABS: IRON 43 ug/dl (35-150)
[2016-09-08 12:42] LABS: TOTAL IRON BINDING CAPACITY 140 ug/dl (241-421)
[2016-09-08 12:54] LABS: HEPATITIS B CORE ANTIBODY NEGATIVE (NEGATIVE)
[2016-09-08] MEDS: SOD CHLORIDE 0.9% 1,000 ML IV SCH (13:00)
[2016-09-08 13:03] LABS: D-DIMER > 10000.00 ng/ml (<460)
[2016-09-08] MEDS ORDERED: POTASSIUM CHLORIDE (SR) 20 MEQ TAB PO STA (13:04)
[2016-09-08 14:45] VITALS: BP 98/63; PULSE 103; RESP 18
[2016-09-08 15:02] VITALS: BP 103/61; RESP 18
[2016-09-08 19:59] VITALS: BP 108/64; PULSE 108; RESP 20
[2016-09-08] MEDS: ACETAMINOPHEN 500 MG TAB PO PRN (21:03)
[2016-09-09] MEDS: IMIPENEM-CILAST 500MG IV (PMX) 100 ML IVPB SCH ×4 (00:11→18:19)
[2016-09-09] MEDS: METHYLNALTREXONE 12 MG/0.6 ML VIAL SC SCH (00:12)
[2016-09-09] MEDS: LEVOFLOXACIN 250MG/D5W (PMX) 50 ML IVPB SCH (01:19)
[2016-09-09] MEDS: SOD CHLORIDE 0.9% 1,000 ML IV SCH ×2 (01:30→12:37)
[2016-09-09] MEDS: LORAZEPAM 0.5 MG TAB PO SCH ×4 (06:00→18:00)
[2016-09-09] MEDS: PANTOPRAZOLE (EC) 40 MG TAB PO SCH (06:19)
[2016-09-09] MEDS: LACTULOSE 30ML CUP PO SCH ×3 (06:19→21:04)
[2016-09-09 07:30] VITALS: BP 117/74; PULSE 64; RESP 20
--- NOTE | 2016-09-09 08:54 | CONS ---
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 Irene Zhu and managed by Dr. Suzan Hernandez, referred to [facility] for weakness and dehydration. He has not seen Dr. Hernandez in awhile. 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 Would recommend therapeutic anticoagulation lovenox 1 mg/kg Q12 for DIC 2/2 malignancy, and also for history of Left thrombosed calf vein in the setting of malignancy. - Few fragments on smear which can be consistent with DIC, iron panel suggests anemia of chronic inflammation; Vitamin B12/folate WNL - Retic count inappropriately low and bili normal which argues against significant hemolysis though LDH 2523 which may be related to tumor burden - Continue to follow counts, goal > 8, plt > 10 or if bleeding. s/p 1 unit pRBCs yesterday, no new labs today # Metastatic prostate cancer, s/p radiation for cord compression per Dr. Zhu in the past - Requesting records from Dr. Hernandez and Dr. Zhu's office. I was unable to reach Dr. Hernandez or her office staff for records. - Patient is on Casodex, unclear whether receiving Lupron, unclear when last CT scan - Consider chemotherapy # Thrombosed L calf vein - Will repeat dopplers, lovenox as above. Problems: Consultation Date/Type/Reason Admit Date/Time Sep 06, 2016 at 22:01 Initial Consult Date 09/08/16 Type of Consultation: Hematology/Oncology 24 HR Interval Summary Free Text/Dictation Patient is somnolent from morphine but arousable. He does not know much history regarding his prostate cancer, nor does his sister. I called his niece (phone number [phone]), prostate cancer metastasized to the bones. He has been on Casodex, unclear how long. Exam/Review of Systems Vital Signs Vitals Vital Signs Date Time Temp Pulse Resp B/P Pulse Ox O2 Delivery O2 Flow Rate FiO2 09/09/16 07:30 97.8 64 20 117/74 94 Room Air Intake and Output 09/08/16 09/08/16 09/09/16 15:00 23:00 07:00 Intake Total 100 ml 1230 ml 240 ml Output Total 375 ml 600 ml Balance 100 ml 855 ml -360 ml Exam Constitutional: other (somnolent but arousable briefly) Psych: no complaints Head: normocephalic Eyes: nl conjunctiva Neck: non-tender, supple Respiratory: clear to auscultation Cardiovascular: other (tachycardic) Gastrointestinal: non-tender, soft Musculoskeletal: nl extremities to inspection 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: lethargic Results Result Diagram: 09/08/16 1120 09/08/16 0535 Results 24 hrs Laboratory Tests Test 09/08/16 11:20 09/08/16 11:30 Absolute Reticulocyte Count 0.057 Activated Partial Thromboplast Time 45.2 H D-Dimer > 88415.00 H Ferritin > 66887.0 H Fibrinogen 472.0 H Folate 6.6 HIV (1&2) Antibody NEGATIVE Hepatitis B Core Total Antibody NEGATIVE Hepatitis B Surface Antigen NEGATIVE Hepatitis C Antibody NEGATIVE INR International Normalized Ratio 1.41 Iron Level 43 Lactate Dehydrogenase 2523 H Percent Iron Saturation 31 Percent Reticulocyte Count 2.0 H Plasma Fibrin Degradation Products >40 and <80 H Platelet Count 41 L Prothrombin Time 17.3 H Prothrombin Time Ratio 1.4 Thrombin Time 13.6 L Total Iron Binding Capacity 140 L Vitamin B12 Level 960 H Hepatitis A IgM Antibody NON-REACTIVE Medications Medications Current Medications Sodium Chloride (NS) 1,000 ml @ 80 mls/hr [id number] IV Last administered on at 13:00; Admin Dose 80 MLS/HR; Start 09/06/16 at 23:30 Bicalutamide (Casodex) 50 mg QAM PO Last administered on 09/08/16at 10:07; Admin Dose 50 MG; Start 09/07/16 at 09:00 Docusate Sodium (Colace) 100 mg BID PRN PO CONSTIPATION; Start 09/07/16 at 00: 00 Escitalopram Oxalate (Lexapro) 5 mg DAILY PO Last administered on 09/08/16 09 :59; Admin Dose 5 MG; Start 09/07/16 at 09:00 Hydromorphone HCl (Dilaudid) 4 mg Q6H PRN PO PAIN; Start 09/07/16 at 00:00 Lactulose (Enulose) 20 gm Q8 PO Last administered on 09/09/16 06:19; Admin Dose 20 GM; Start 09/07/16 at 06:00 Lorazepam (Ativan) 0.5 mg Q6 PO Last administered on 09/08/16 05:36; Admin Dose 0.5 MG; Start 09/07/16 at 00:00 Meclizine HCl (Antivert) 25 mg TID PO Last administered on 09/08/16 21:03; Admin Dose 25 MG; Start 09/07/16 at 09:00 Megestrol Acetate (Megace Susp) 400 mg BID PO Last administered on 09/08/16 21:04; Admin Dose 400 MG; Start 09/07/16 at 09:00 Methylnaltrexone [place] (Relistor) 12 mg Q48H SC Last administered on at 00:12; Admin Dose 12 MG; Start 09/07/16 at 00:00 Morphine Sulfate (Ms Contin (Er)) 15 mg Q12 PO Last administered on 09/08/16 21:04; Admin Dose 15 MG; Start 09/07/16 at 09:00 Ondansetron HCl (Zofran Tab) 4 mg Q6H PRN PO NAUSEA AND/OR VOMITING; Start at 00:00 Polyethylene Glycol 17 gm 17 gm DAILY GTB Last administered on 09/08/16at 10:00 ; Admin Dose 17 GM; Start 09/07/16 at 09:00 Levofloxacin/ Dextrose (Levaquin 250 Mg/ D5W 50 ml (Pmx)) 50 ml @ 50 mls/hr Q24H IVPB Last administered on 09/09/16 01:19; Admin Dose 50 MLS/HR; Start 09/07/16 at 00:30 Acetaminophen 500 mg 500 mg Q4H PRN PO PAIN AND OR ELEVATED TEMP Last administered on 09/08/16 21:03; Admin Dose 500 MG; Start 09/07/16 at 21:30 Imipenem/ Cilastatin Sodium (Primaxin 500 Mg/ 100 ml (Pmx)) 100 ml @ 100 mls/ hr Q6 IVPB Last administered on 09/09/16at 06:19; Admin Dose 100 MLS/HR; Start 09/08/16 at 00:00 TOBRYON MD Sep 09, 2016 08:53
[2016-09-09] MEDS: POLYETHYLENE GLYCOL 17 GM PACKET GTB SCH (09:00)
[2016-09-09] MEDS: BICALUTAMIDE 50 MG TAB PO SCH (09:43)
[2016-09-09] MEDS: morphine (ER) 15 MG TAB PO SCH ×2 (09:44→21:03)
[2016-09-09] MEDS: ESCITALOPRAM 10 MG TAB PO SCH (09:44)
[2016-09-09] MEDS: MECLIZINE 25 MG TAB PO SCH ×3 (09:44→21:03)
[2016-09-09] MEDS: MEGESTROL (40 MG/ML) 10ML CUP PO SCH ×2 (09:44→21:03)
--- NOTE | 2016-09-09 11:47 | RADRPT ---
PROCEDURE: US DVT. CLINICAL INDICATION: Bilateral lower extremity pain and swelling. TECHNIQUE: Multiple longitudinal and transverse images of the bilateral lower extremity veins were obtained with bowman scale and color Doppler imaging. 2D grayscale measurements with compression, co sarah Doppler flow, and augmentation was performed. The calf veins were interrogated as well. COMPARISON: 07/10/2016 FINDINGS: The bilateral common femoral, superficial femoral and popliteal veins are normally compressible thro ughout. Color flow demonstrates normal filling of the vessel. Normal waveforms are visualized and there is normal response to augmentation. The calf veins are visualized and are equally unremarkabl e. IMPRESSION: 1. No evidence of a deep vein thrombosis involving either lower extremity. 2. No residual thrombus identified within the left calf veins on the current study. RPTAT: TT .Keyur Jefferson MD, MD Date Time Electronically viewed and signed by .Keyur Jefferson MD, MD on 09/09/2016 11:46 .d/
[2016-09-09] MEDS: ENOXAPARIN 60 MG/0.6 ML SYG SC SCH (12:39)
[2016-09-09 13:44] LABS: ALBUMIN 2.2 g/dl (3.3-4.9); CHLORIDE 105 mmol/L (97-110)
[2016-09-09 13:45] LABS: POTASSIUM 3.9 mmol/L (3.5-5.1); SODIUM 137 mmol/L (135-144)
[2016-09-09 13:47] LABS: ALANINE AMINOTRANSFERASE 29 IU/L (13-69); ALBUMIN/GLOBULIN RATIO 0.78; ALKALINE PHOSPHATASE 668 IU/L (42-121); ANION GAP 14 (8-16); ASPARTATE AMINO TRANSFERASE 38 IU/L (15-46); BILIRUBIN,INDIRECT 0.3 mg/dl (0-1.1); BILIRUBIN,TOTAL 0.3 mg/dl (0.2-1.3); BLOOD UREA NITROGEN 9 mg/dl (7-20); CARBON DIOXIDE 22 mmol/L (21-31); CREATININE 0.34 mg/dl (0.61-1.24)
[2016-09-09 13:48] LABS: CALCIUM 7.7 mg/dl (8.4-10.2); GLUCOSE 116 mg/dl (70-220)
[2016-09-09 13:50] LABS: BASOPHILS % 0.2 % (0.0-2.0); HEMOGLOBIN 9.9 g/dl (14.0-18.0); LYMPHOCYTES # 0.9 10^3/ul (0.8-2.9); LYMPHOCYTES % 16.2 % (15.0-51.0); MEAN CORPUSCULAR HEMOGLOBIN 27.6 pg (29.0-33.0); MEAN CORPUSCULAR HGB CONC 33.2 g/dl (32.0-37.0); MEAN CORPUSCULAR VOLUME 83.2 fl (82.0-101.0); MEAN PLATELET VOLUME 8.2 fl (7.4-10.4); MONOCYTE # 0.4 10^3/ul (0.3-0.9); MONOCYTES % 8.3 % (0.0-11.0); NEUTROPHILS % 75.3 % (39.0-77.0); PLATELET COUNT 42 10^3/UL (140-440); RED BLOOD COUNT 3.61 10^6/ul (4.70-6.10); RED CELL DISTRIBUTION WIDTH 19.3 % (11.5-14.5); UNCORRECTED WBC 5.3 10^3/ul (4.8-10.8); WHITE BLOOD COUNT 5.3 10^3/ul (4.8-10.8)
--- NOTE | 2016-09-09 13:51 | PN ---
Date/Time of Note Date/Time of Note DATE: 09/09/16 TIME: 13:51 Assessment/Plan VTE Prophylaxis VTE Prophylaxis Intervention: LMWH Lines/Catheters IV Catheter Type (from Nrsg): Saline Lock Urinary Cath still in place: Yes Reason Cath still needed: urinary retention Assessment/Plan Assessment/Plan 1.Hypotension sec to Hypotension - ivf - monitor labs 2.Dehydration/slightly elevated BUN - Cont IVF - monitor BUN/CR- will et nephrology consult when needed. 3.Anemia - monitor H/H 4.Intractable pain/ Acute on chronic back pain. - pain management consult appreciated Dilhenryid p.r.n. for breakthrough pain. 5.Metastatic prostate cancer. - sp Radiation therapy by Dr Ghassan Hylton - oncology consult appreciated- Dr Silva - diietary consult 6.Thrombocytopenia. Continue to monitor platelets. - monitor for s/s of bleeding 7. 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 Hypokalemia - replet K, am labs Dw Dr Nichols Subjective 24 Hr Interval Summary Free Text/Dictation Late entry for09/08 Eyes: no complaints ENT: no complaints Respiratory: no complaints Cardiovascular: no complaints Gastrointestinal: no complaints Genitourinary: no complaints Musculoskeletal: back pain Skin: no complaints Neurologic: no complaints Endocrine: no complaints Lymphatic: no complaints Exam/Review of Systems Vital Signs Vitals Vital Signs Date Time Temp Pulse Resp B/P Pulse Ox O2 Delivery O2 Flow Rate FiO2 09/09/16 07:30 97.8 64 20 117/74 94 Room Air Intake and Output 09/08/16 09/08/16 09/09/16 15:00 23:00 07:00 Intake Total 100 ml 1230 ml 240 ml Output Total 375 ml 600 ml Balance 100 ml 855 ml -360 ml Exam Constitutional: alert Psych: nl mood/affect Head: atraumatic Eyes: PERRL, nl sclera ENMT: nl external ears & nose Neck: non-tender Respiratory: clear to auscultation Cardiovascular: nl pulses Gastrointestinal: non-tender, soft Musculoskeletal: nl extremities to inspection 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: nl mental status, nl speech Skin: nl turgor Lymph: nontender Results Result Diagram: 09/08/16 1120 09/08/16 0535 Medications Medications Current Medications Sodium Chloride (NS) 1,000 ml @ 80 mls/hr [id number] IV Last administered on 12:37; Admin Dose 80 MLS/HR; Start 09/06/16 at 23:30 Bicalutamide (Casodex) 50 mg QAM PO Last administered on 09/09/16 09:43; Admin Dose 50 MG; Start 09/07/16 at 09:00 Docusate Sodium (Colace) 100 mg BID PRN PO CONSTIPATION; Start 09/07/16 at 00: 00 Escitalopram Oxalate (Lexapro) 5 mg DAILY PO Last administered on 09/09/16 09 :44; Admin Dose 5 MG; Start 09/07/16 at 09:00 Hydromorphone HCl (Dilaudid) 4 mg Q6H PRN PO PAIN; Start 09/07/16 at 00:00 Lactulose (Enulose) 20 gm Q8 PO Last administered on 09/09/16 06:19; Admin Dose 20 GM; Start 09/07/16 at 06:00 Lorazepam (Ativan) 0.5 mg Q6 PO Last administered on 09/08/16 05:36; Admin Dose 0.5 MG; Start 09/07/16 at 00:00 Meclizine HCl (Antivert) 25 mg TID PO Last administered on 09/09/16 09:44; Admin Dose 25 MG; Start 09/07/16 at 09:00 Megestrol Acetate (Megace Susp) 400 mg BID PO Last administered on 09/09/16 09:44; Admin Dose 400 MG; Start 09/07/16 at 09:00 Methylnaltrexone [place] (Relistor) 12 mg Q48H SC Last administered on 00:12; Admin Dose 12 MG; Start 09/07/16 at 00:00 Morphine Sulfate (Ms Contin (Er)) 15 mg Q12 PO Last administered on 09/09/16 09:44; Admin Dose 15 MG; Start 09/07/16 at 09:00 Ondansetron HCl (Zofran Tab) 4 mg Q6H PRN PO NAUSEA AND/OR VOMITING; Start at 00:00 Polyethylene Glycol 17 gm 17 gm DAILY GTB Last administered on 09/08/16 10:00 ; Admin Dose 17 GM; Start 09/07/16 at 09:00 Levofloxacin/ Dextrose (Levaquin 250 Mg/ D5W 50 ml (Pmx)) 50 ml @ 50 mls/hr Q24H IVPB Last administered on 09/09/16at 01:19; Admin Dose 50 MLS/HR; Start 09/07/16 at 00:30 Acetaminophen 500 mg 500 mg Q4H PRN PO PAIN AND OR ELEVATED TEMP Last administered on 09/08/16at 21:03; Admin Dose 500 MG; Start 09/07/16 at 21:30 Imipenem/ Cilastatin Sodium (Primaxin 500 Mg/ 100 ml (Pmx)) 100 ml @ 100 mls/ hr Q6 IVPB Last administered on 09/09/16at 12:36; Admin Dose 100 MLS/HR; Start 09/08/16 at 00:00 Enoxaparin Sodium (Lovenox) 55 mg Q12H SC Last administered on 09/09/16at 12:39 ; Admin Dose 55 MG; Start 09/09/16 at 12:00 Leuprolide Acetate (Lupron [place]) 7.5 mg ONCE ONCE IM ; Start 09/12/16 at 09: 00; Stop 09/12/16 at 09:01; Status KENDAL JOE Sep 09, 2016 13:51
--- NOTE | 2016-09-09 13:52 | PN ---
Date/Time of Note Date/Time of Note DATE: 09/09/16 TIME: 13:51 Assessment/Plan VTE Prophylaxis VTE Prophylaxis Intervention: SCD's Lines/Catheters IV Catheter Type (from Nrsg): Saline Lock Urinary Cath still in place: Yes Reason Cath still needed: urinary retention Assessment/Plan Assessment/Plan 1.Hypotension sec to Hypotension - ivf - monitor labs 2.Dehydration/slightly elevated BUN - Cont IVF - monitor BUN/CR- will et nephrology consult when needed. 3.Anemia - monitor H/H 4.Intractable pain/ Acute on chronic back pain. - pain management consult appreciated Dilaudid p.r.n. for breakthrough pain. 5.Metastatic prostate cancer. - sp Radiation therapy by Dr Ghassan Hylton - oncology consult appreciated- Dr Silva - diietary consult 6.Thrombocytopenia. Continue to monitor platelets. - monitor for s/s of bleeding 7. 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 Hypokalemia- replet K, am labs Dw Dr Nichols Exam/Review of Systems Vital Signs Vitals Vital Signs Date Time Temp Pulse Resp B/P Pulse Ox O2 Delivery O2 Flow Rate FiO2 09/09/16 07:30 97.8 64 20 117/74 94 Room Air Intake and Output 09/08/16 09/08/16 09/09/16 15:00 23:00 07:00 Intake Total 100 ml 1230 ml 240 ml Output Total 375 ml 600 ml Balance 100 ml 855 ml -360 ml Exam Constitutional: alert Results Result Diagram: 09/08/16 1120 09/08/16 0535 Medications Medications Current Medications Sodium Chloride (NS) 1,000 ml @ 80 mls/hr [id number] IV Last administered on at 12:37; Admin Dose 80 MLS/HR; Start 09/06/16 at 23:30 Bicalutamide (Casodex) 50 mg QAM PO Last administered on 09/09/16at 09:43; Admin Dose 50 MG; Start 09/07/16 at 09:00 Docusate Sodium (Colace) 100 mg BID PRN PO CONSTIPATION; Start 09/07/16 at 00: 00 Escitalopram Oxalate (Lexapro) 5 mg DAILY PO Last administered on 09/09/16at 09 :44; Admin Dose 5 MG; Start 09/07/16 at 09:00 Hydromorphone HCl (Dilaudid) 4 mg Q6H PRN PO PAIN; Start 09/07/16 at 00:00 Lactulose (Enulose) 20 gm Q8 PO Last administered on 09/09/16 06:19; Admin Dose 20 GM; Start 09/07/16 at 06:00 Lorazepam (Ativan) 0.5 mg Q6 PO Last administered on 09/08/16 05:36; Admin Dose 0.5 MG; Start 09/07/16 at 00:00 Meclizine HCl (Antivert) 25 mg TID PO Last administered on 09/09/16 09:44; Admin Dose 25 MG; Start 09/07/16 at 09:00 Megestrol Acetate (Megace Susp) 400 mg BID PO Last administered on 09/09/16 09:44; Admin Dose 400 MG; Start 09/07/16 at 09:00 Methylnaltrexone [place] (Relistor) 12 mg Q48H SC Last administered on 00:12; Admin Dose 12 MG; Start 09/07/16 at 00:00 Morphine Sulfate (Ms Contin (Er)) 15 mg Q12 PO Last administered on 09/09/16 09:44; Admin Dose 15 MG; Start 09/07/16 at 09:00 Ondansetron HCl (Zofran Tab) 4 mg Q6H PRN PO NAUSEA AND/OR VOMITING; Start at 00:00 Polyethylene Glycol 17 gm 17 gm DAILY GTB Last administered on 09/08/16 10:00 ; Admin Dose 17 GM; Start 09/07/16 at 09:00 Levofloxacin/ Dextrose (Levaquin 250 Mg/ D5W 50 ml (Pmx)) 50 ml @ 50 mls/hr Q24H IVPB Last administered on 09/09/16 01:19; Admin Dose 50 MLS/HR; Start 09/07/16 at 00:30 Acetaminophen 500 mg 500 mg Q4H PRN PO PAIN AND OR ELEVATED TEMP Last administered on 09/08/16 21:03; Admin Dose 500 MG; Start 09/07/16 at 21:30 Imipenem/ Cilastatin Sodium (Primaxin 500 Mg/ 100 ml (Pmx)) 100 ml @ 100 mls/ hr Q6 IVPB Last administered on 12/23/16at 12:36; Admin Dose 100 MLS/HR; Start 09/08/16 at 00:00 Enoxaparin Sodium (Lovenox) 55 mg Q12H SC Last administered on 09/09/16at 12:39 ; Admin Dose 55 MG; Start 09/09/16 at 12:00 Leuprolide Acetate (Lupron [place]) 7.5 mg ONCE ONCE IM ; Start 09/12/16 at 09: 00; Stop 09/12/16 at 09:01; Status KENDAL JOE Sep 09, 2016 13:52
--- NOTE | 2016-09-09 13:53 | PN ---
Date/Time of Note Date/Time of Note DATE: 09/09/16 TIME: 13:52 Assessment/Plan VTE Prophylaxis VTE Prophylaxis Intervention: SCD's Lines/Catheters IV Catheter Type (from Nrsg): Saline Lock Urinary Cath still in place: Yes Reason Cath still needed: urinary retention Assessment/Plan Assessment/Plan 1.Hypotension sec to Hypotension - ivf - monitor labs 2.Dehydration/slightly elevated BUN - Cont IVF - monitor BUN/CR- will et nephrology consult when needed. 3.Anemia - monitor H/H 4.Intractable pain/ Acute on chronic back pain. - pain management consult appreciated Dilaudid p.r.n. for breakthrough pain. 5.Metastatic prostate cancer. - sp Radiation therapy by Dr Ghassan Hylton - oncology consult appreciated- Dr Silva - diietary consult 6.Thrombocytopenia. Continue to monitor platelets. - monitor for s/s of bleeding 7. 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 Hypokalemia- resolved dawna Piedra Subjective 24 Hr Interval Summary Free Text/Dictation Patient off floor- gone for CT scan. dw staff- no new issues reported, Exam/Review of Systems Vital Signs Vitals Vital Signs Date Time Temp Pulse Resp B/P Pulse Ox O2 Delivery O2 Flow Rate FiO2 09/09/16 07:30 97.8 64 20 117/74 94 Room Air Intake and Output 09/08/16 09/08/16 09/09/16 15:00 23:00 07:00 Intake Total 100 ml 1230 ml 240 ml Output Total 375 ml 600 ml Balance 100 ml 855 ml -360 ml Results Result Diagram: 09/08/16 1120 09/08/16 0535 Medications Medications Current Medications Sodium Chloride (NS) 1,000 ml @ 80 mls/hr [id number] IV Last administered on at 12:37; Admin Dose 80 MLS/HR; Start 09/06/16 at 23:30 Bicalutamide (Casodex) 50 mg QAM PO Last administered on 09/09/16at 09:43; Admin Dose 50 MG; Start 09/07/16 at 09:00 Docusate Sodium (Colace) 100 mg BID PRN PO CONSTIPATION; Start 09/07/16 at 00: 00 Escitalopram Oxalate (Lexapro) 5 mg DAILY PO Last administered on 09/09/16at 09 :44; Admin Dose 5 MG; Start 09/07/16 at 09:00 Hydromorphone HCl (Dilaudid) 4 mg Q6H PRN PO PAIN; Start 09/07/16 at 00:00 Lactulose (Enulose) 20 gm Q8 PO Last administered on 09/09/16 06:19; Admin Dose 20 GM; Start 09/07/16 at 06:00 Lorazepam (Ativan) 0.5 mg Q6 PO Last administered on 09/08/16 05:36; Admin Dose 0.5 MG; Start 09/07/16 at 00:00 Meclizine HCl (Antivert) 25 mg TID PO Last administered on 09/09/16 09:44; Admin Dose 25 MG; Start 09/07/16 at 09:00 Megestrol Acetate (Megace Susp) 400 mg BID PO Last administered on 09/09/16 09:44; Admin Dose 400 MG; Start 09/07/16 at 09:00 Methylnaltrexone [place] (Relistor) 12 mg Q48H SC Last administered on 00:12; Admin Dose 12 MG; Start 09/07/16 at 00:00 Morphine Sulfate (Ms Contin (Er)) 15 mg Q12 PO Last administered on 09/09/16 09:44; Admin Dose 15 MG; Start 09/07/16 at 09:00 Ondansetron HCl (Zofran Tab) 4 mg Q6H PRN PO NAUSEA AND/OR VOMITING; Start at 00:00 Polyethylene Glycol 17 gm 17 gm DAILY GTB Last administered on 09/08/16at 10:00 ; Admin Dose 17 GM; Start 09/07/16 at 09:00 Levofloxacin/ Dextrose (Levaquin 250 Mg/ D5W 50 ml (Pmx)) 50 ml @ 50 mls/hr Q24H IVPB Last administered on 09/09/16 01:19; Admin Dose 50 MLS/HR; Start 09/07/16 at 00:30 Acetaminophen 500 mg 500 mg Q4H PRN PO PAIN AND OR ELEVATED TEMP Last administered on 09/08/16 21:03; Admin Dose 500 MG; Start 09/07/16 at 21:30 Imipenem/ Cilastatin Sodium (Primaxin 500 Mg/ 100 ml (Pmx)) 100 ml @ 100 mls/ hr Q6 IVPB Last administered on 09/09/16at 12:36; Admin Dose 100 MLS/HR; Start 09/08/16 at 00:00 Enoxaparin Sodium (Lovenox) 55 mg Q12H SC Last administered on 09/09/16at 12:39 ; Admin Dose 55 MG; Start 09/09/16 at 12:00 Leuprolide Acetate (Lupron Depot) 7.5 mg ONCE ONCE IM ; Start 09/12/16 at 09: 00; Stop 09/12/16 at 09:01; Status KENDAL JOE Sep 09, 2016 13:52
[2016-09-09 13:55] LABS: CONDITION 1; LH ANALYZER COMMENTS 1; NUCLEATED RED BLOOD CELLS # 0.1 10^3/ul (0.0-0.0)
[2016-09-09] MEDS ORDERED: IOHEXOL 300MG/ML 150 ML BTL ONE (14:07)
[2016-09-09] MEDS ORDERED: SOD CHLORIDE 0.9% 100 ML ONE (14:07)
[2016-09-09 14:49] LABS: PLATELET ESTIMATE PLT APPEAR DECREASED
[2016-09-09 15:18] LABS: PROSTATE SPECIFIC ANTIGEN > 1000.0 ng/ml (0.0-4.0)
--- NOTE | 2016-09-09 15:47 | RADRPT ---
PROCEDURE: CT Chest, Abdomen and Pelvis with contrast. CLINICAL INDICATION: Prostate cancer and anemia. TECHNIQUE: Volumetrically-acquired images of the chest, abdomen and pelvis were obtained following the intravenous administration of 100 cc of Omnipaque-300. Images were then reformatted in the axial , sagittal, and coronal planes. CTDIvol = 7.88 mGy; DLP = 609.67 mGy-cm. COMPARISON: CT abdomen/pelvis 07/04/2016, 05/31/2016 and 05/26/2016. FINDINGS: ONCOLOGIC FINDINGS Measurable disease (as per RESIST 1.1) with target lesions as follows: Left external iliac chain lymph node: 17 mm (3-232), previously 7 mm. Right external iliac chain lymph node: 20 mm (3-238), previously 10 mm. Nonmeasurable disease: Extensive sclerotic metastatic disease is observed throughout the axial and visualized appendicular skeleton. There is increased aggressive periosteal reaction involving the bones of the pelvis. Ther e is an increase in soft tissue thickening surrounding the superior and inferior pubic rami. New Lesions: None. Additional comments: None. ADDITIONAL FINDINGS Limited imaging of the lower neck is unremarkable. The heart is not enlarged. There is no pericardial effusion. There is no mediastinal, hilar or axi llary lymphadenopathy. The thoracic aorta is normal in caliber. The pulmonary arteries are not enl arged. Small bilateral pleural effusions with basilar atelectasis are present. There are 2 small hemangiomas within the liver which are unchanged. There is no new or concerning h epatic lesion. The hepatic and portal veins are patent. The gallbladder, pancreas and adrenal glan ds are unremarkable. The kidneys are symmetric in size and enhancement. There is no hydronephrosis or abnormal perinephr ic inflammation. The abdominal aorta is normal in caliber. There is no periaortic / retroperitoneal lymphadenopathy. The stomach and small and large intestines are unremarkable. The appendix is normal. There are no fo karen inflammatory changes of the mesentery. There is no mesenteric lymphadenopathy. There is no asc ites. There is a small fat containing left inguinal hernia. The bladder is collapsed around a White. The prostate gland is small in size. The seminal vesicles are unremarkable. There is no free pelvic fluid. IMPRESSION: History of prostate cancer with extensive sclerotic metastatic disease. There is increased aggressi ve periostitis of the pelvis. Small bilateral pleural effusions with basilar atelectasis. Increased bilateral iliac chain lymphadenopathy. RPTAT: HLST .Nicki Love MD, Date Time Electronically viewed and signed by .Nicki Love MD, on 09/09/2016 15:46 .T/
[2016-09-09] MEDS ORDERED: ZOLEDRONIC ACID 4 MG in SOD CHLORIDE 0.9% 100 ML IVPB ONE (16:30)
[2016-09-09 20:00] VITALS: BP 128/73; PULSE 104; RESP 20
[2016-09-10] MEDS: IMIPENEM-CILAST 500MG IV (PMX) 100 ML IVPB SCH ×5 (01:03→23:15)
[2016-09-10] MEDS: ENOXAPARIN 60 MG/0.6 ML SYG SC SCH ×3 (01:05→21:38)
[2016-09-10] MEDS: LEVOFLOXACIN 250MG/D5W (PMX) 50 ML IVPB SCH (01:43)
[2016-09-10] MEDS: HYDROmorphONE 4 MG TAB PO PRN ×2 (02:38→17:16)
[2016-09-10] MEDS: SOD CHLORIDE 0.9% 1,000 ML IV SCH ×2 (02:40→15:00)
[2016-09-10 06:00] LABS: POTASSIUM 3.6 mmol/L (3.5-5.1)
[2016-09-10] MEDS: LACTULOSE 30ML CUP PO SCH ×3 (06:00→22:07)
[2016-09-10] MEDS: LORAZEPAM 0.5 MG TAB PO SCH ×7 (06:00→23:15)
[2016-09-10 06:02] LABS: CREATININE 0.31 mg/dl (0.61-1.24)
[2016-09-10 06:03] LABS: CALCIUM 7.4 mg/dl (8.4-10.2)
[2016-09-10] MEDS: PANTOPRAZOLE (EC) 40 MG TAB PO SCH (06:43)
[2016-09-10] MEDS ORDERED: LIDOCAINE 1% (MDV) 20 ML INJ SC ONE (07:00)
[2016-09-10 07:49] LABS: HEMATOCRIT 28.1 % (42.0-52.0); HEMOGLOBIN 9.5 g/dl (14.0-18.0); MEAN CORPUSCULAR HEMOGLOBIN 28.1 pg (29.0-33.0); MEAN CORPUSCULAR HGB CONC 33.8 g/dl (32.0-37.0); MEAN CORPUSCULAR VOLUME 83.3 fl (82.0-101.0); MEAN PLATELET VOLUME 8.6 fl (7.4-10.4); PLATELET COUNT 35 10^3/UL (140-440); RED BLOOD COUNT 3.37 10^6/ul (4.70-6.10); RED CELL DISTRIBUTION WIDTH 18.6 % (11.5-14.5); UNCORRECTED WBC 4.8 10^3/ul (4.8-10.8); WHITE BLOOD COUNT 4.8 10^3/ul (4.8-10.8)
[2016-09-10 08:00] VITALS: BP 136/84; PULSE 82; RESP 18
[2016-09-10 08:03] LABS: CONDITION 1; LH ANALYZER COMMENTS 1
[2016-09-10] MEDS: MECLIZINE 25 MG TAB PO SCH ×3 (08:44→20:47)
[2016-09-10] MEDS: POLYETHYLENE GLYCOL 17 GM PACKET GTB SCH (08:44)
[2016-09-10] MEDS: morphine (ER) 15 MG TAB PO SCH ×2 (08:45→20:48)
[2016-09-10] MEDS: MEGESTROL (40 MG/ML) 10ML CUP PO SCH ×2 (08:45→20:48)
[2016-09-10] MEDS: ESCITALOPRAM 10 MG TAB PO SCH (08:45)
[2016-09-10] MEDS: BICALUTAMIDE 50 MG TAB PO SCH (08:46)
[2016-09-10 11:01] LABS: LYMPHOCYTES # 0.3 10^3/ul (0.8-2.9); MONOCYTE # 0.2 10^3/ul (0.3-0.9); NEUTROPHIL # 3.6 10^3/ul (1.6-7.5); PLATELET ESTIMATE PLT APPEAR DECREASED
--- NOTE | 2016-09-10 13:14 | PN ---
Date/Time of Note Date/Time of Note DATE: 09/10/16 TIME: 13:13 Assessment/Plan VTE Prophylaxis VTE Prophylaxis Intervention: other Lines/Catheters IV Catheter Type (from Nrsg): Saline Lock Urinary Cath still in place: Yes Reason Cath still needed: skin wounds contaminated by urine Assessment/Plan Chief Complaint/Hosp Course 1) Hypotension- stable 2) Dehydration - ivf 3) Anemia - monitor H/H 4) Intractable pain - pain control 5) Prostate carcinoma - sp Radiation therapy by Dr Ghassan Hylton - oncology consult appreciated- Dr Silva 6) Thrombocytopenia - lovenox on hold Problems: Subjective 24 Hr Interval Summary Free Text/Dictation Patient has no complaints Exam/Review of Systems Vital Signs Vitals Vital Signs Date Time Temp Pulse Resp B/P Pulse Ox O2 Delivery O2 Flow Rate FiO2 09/10/16 08:00 97.6 82 18 136/84 94 Room Air Intake and Output 09/09/16 09/09/16 09/10/16 15:00 23:00 07:00 Intake Total 100 ml 1295 ml 990 ml Output Total 1200 ml 1300 ml Balance 100 ml 95 ml -310 ml Exam Constitutional: well developed Respiratory: diminished breath sounds Cardiovascular: regular rate and rhythm Gastrointestinal: non-tender, soft Results Result Diagram: 09/10/16 0450 09/10/16 0450 Results 24 hrs Laboratory Tests Test 09/10/16 04:50 Anion Gap 12 Band Neutrophils % 15.0 H Basophils # Basophils % Blood Morphology Comment Blood Urea Nitrogen 7 Calcium Level 7.4 L Carbon Dioxide Level 23 Chloride Level 104 Creatinine 0.31 L Differential Comment MANUAL DIFF Eosinophils # Eosinophils % Glucose Level 83 Hematocrit 28.1 L Hemoglobin 9.5 L Lymphocytes # 0.3 L Lymphocytes % 6.0 L Mean Corpuscular Hemoglobin 28.1 L Mean Corpuscular Hemoglobin Concent 33.8 Mean Corpuscular Volume 83.3 Mean Platelet Volume 8.6 Monocytes # 0.2 L Monocytes % 4.0 Neutrophils # 3.6 Neutrophils % 75.0 Nucleated Red Blood Cells # Nucleated Red Blood Cells % 2.0 H Platelet Count 35 L Platelet Estimate PLT APPEAR DECREASED Potassium Level 3.6 Red Blood Count 3.37 L Red Cell Distribution Width 18.6 H Sodium Level 135 White Blood Count 4.8 Medications Medications Current Medications Sodium Chloride (NS) 1,000 ml @ 80 mls/hr [id number] IV Last administered on 02:40; Admin Dose 80 MLS/HR; Start 09/06/16 at 23:30 Bicalutamide (Casodex) 50 mg QAM PO Last administered on 09/10/16 08:46; Admin Dose 50 MG; Start 09/07/16 at 09:00 Docusate Sodium (Colace) 100 mg BID PRN PO CONSTIPATION; Start 09/07/16 at 00: 00 Escitalopram Oxalate (Lexapro) 5 mg DAILY PO Last administered on 09/10/16 08 :45; Admin Dose 5 MG; Start 09/07/16 at 09:00 Hydromorphone HCl (Dilaudid) 4 mg Q6H PRN PO PAIN Last administered on 02:38; Admin Dose 4 MG; Start 09/07/16 at 00:00 Lactulose (Enulose) 20 gm Q8 PO Last administered on 09/09/16 21:04; Admin Dose 20 GM; Start 09/07/16 at 06:00 Lorazepam (Ativan) 0.5 mg Q6 PO Last administered on 09/08/16 05:36; Admin Dose 0.5 MG; Start 09/07/16 at 00:00 Meclizine HCl (Antivert) 25 mg TID PO Last administered on 09/10/16 08:44; Admin Dose 25 MG; Start 09/07/16 at 09:00 Megestrol Acetate (Megace Susp) 400 mg BID PO Last administered on 09/10/16 08:45; Admin Dose 400 MG; Start 09/07/16 at 09:00 Methylnaltrexone [place] (Relistor) 12 mg Q48H SC Last administered on 00:12; Admin Dose 12 MG; Start 09/07/16 at 00:00 Morphine Sulfate (Ms Contin (Er)) 15 mg Q12 PO Last administered on 09/10/16 08:45; Admin Dose 15 MG; Start 09/07/16 at 09:00 Ondansetron HCl (Zofran Tab) 4 mg Q6H PRN PO NAUSEA AND/OR VOMITING; Start at 00:00 Polyethylene Glycol 17 gm 17 gm DAILY GTB Last administered on 09/08/16 10:00 ; Admin Dose 17 GM; Start 09/07/16 at 09:00 Levofloxacin/ Dextrose (Levaquin 250 Mg/ D5W 50 ml (Pmx)) 50 ml @ 50 mls/hr Q24H IVPB Last administered on 09/10/16at 01:43; Admin Dose 50 MLS/HR; Start 09/07/16 at 00:30 Acetaminophen 500 mg 500 mg Q4H PRN PO PAIN AND OR ELEVATED TEMP Last administered on 09/08/16at 21:03; Admin Dose 500 MG; Start 09/07/16 at 21:30 Imipenem/ Cilastatin Sodium (Primaxin 500 Mg/ 100 ml (Pmx)) 100 ml @ 100 mls/ hr Q6 IVPB Last administered on 09/10/16at 08:35; Admin Dose 100 MLS/HR; Start 09/08/16 at 00:00 Enoxaparin Sodium (Lovenox) 55 mg Q12H SC Last administered on 09/10/16at 01:05 ; Admin Dose 55 MG; Start 09/09/16 at 12:00 Leuprolide Acetate (Lupron Depot) 7.5 mg ONCE ONCE IM ; Start 09/12/16 at 09: 00; Stop 09/12/16 at 09:01; Status UNV NASREEN DAMON Sep 10, 2016 13:14
--- NOTE | 2016-09-10 13:41 | PN ---
Date/Time of Note Date/Time of Note DATE: 09/10/16 TIME: 13:40 Assessment/Plan VTE Prophylaxis VTE Prophylaxis Intervention: anti-embolic stocking Lines/Catheters IV Catheter Type (from Nrs): Saline Lock Central line still needed: Yes Urinary Cath still in place: Yes Reason Cath still needed: urinary retention Assessment/Plan Assessment/Plan The patient is a 60 year old male with metastatic prostate cancer with diffuse osteoblastic sclerotic metastases, previously treated for cord compression by Dr. Irene Zhu and managed by Dr. Suzan Hernandez, referred to [facility] for weakness and dehydration. He has not seen Dr. Hernandez in awhile. 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 Would recommend therapeutic anticoagulation lovenox 1 mg/kg Q12 for DIC 2/2 malignancy, and also for history of Left thrombosed calf vein in the setting of malignancy. - Few fragments on smear which can be consistent with DIC, iron panel suggests anemia of chronic inflammation; Vitamin B12/folate WNL - Retic count inappropriately low and bili normal which argues against significant hemolysis though LDH 2523 which may be related to tumor burden - Continue to follow counts, goal > 8, plt > 10 or if bleeding. s/p 1 unit pRBC # Metastatic prostate cancer, s/p radiation for cord compression per Dr. Zhu in the past - Requesting records from Dr. Hernandez and Dr. Zhu's office. Please see Consult addendum by Dr Montoya - Patient is on Casodex, unclear whether receiving Lupron, unclear when last CT scan - Consider chemotherapy if platelets improve # Thrombosed L calf vein - Will repeat dopplers, lovenox as above. Subjective 24 Hr Interval Summary Subjective hx not possible: pt non-verbal, pt critical status Exam/Review of Systems Vital Signs Vitals Vital Signs Date Time Temp Pulse Resp B/P Pulse Ox O2 Delivery O2 Flow Rate FiO2 09/10/16 08:00 97.6 82 18 136/84 94 Room Air Intake and Output 09/09/16 09/09/1609/10/16 15:00 23:00 07:00 Intake Total 100 ml 1295 ml 990 ml Output Total 1200 ml 1300 ml Balance 100 ml 95 ml -310 ml Exam somnolent and lethargic Eyes: nl conjunctiva Neck: supple Respiratory: normal air movement Results Result Diagram: 09/10/16 0450 09/10/16 0450 Results 24 hrs Laboratory Tests Test 09/10/16 04:50 Anion Gap 12 Band Neutrophils % 15.0 H Basophils # Basophils % Blood Morphology Comment Blood Urea Nitrogen 7 Calcium Level 7.4 L Carbon Dioxide Level 23 Chloride Level 104 Creatinine 0.31 L Differential Comment MANUAL DIFF Eosinophils # Eosinophils % Glucose Level 83 Hematocrit 28.1 L Hemoglobin 9.5 L Lymphocytes # 0.3 L Lymphocytes % 6.0 L Mean Corpuscular Hemoglobin 28.1 L Mean Corpuscular Hemoglobin Concent 33.8 Mean Corpuscular Volume 83.3 Mean Platelet Volume 8.6 Monocytes # 0.2 L Monocytes % 4.0 Neutrophils # 3.6 Neutrophils % 75.0 Nucleated Red Blood Cells # Nucleated Red Blood Cells % 2.0 H Platelet Count 35 L Platelet Estimate PLT APPEAR DECREASED Potassium Level 3.6 Red Blood Count 3.37 L Red Cell Distribution Width 18.6 H Sodium Level 135 White Blood Count 4.8 Medications Medications Current Medications Sodium Chloride (NS) 1,000 ml @ 80 mls/hr [id number] IV Last administered on at 02:40; Admin Dose 80 MLS/HR; Start 09/06/16 at 23:30 Bicalutamide (Casodex) 50 mg QAM PO Last administered on 09/10/16at 08:46; Admin Dose 50 MG; Start 09/07/16 at 09:00 Docusate Sodium (Colace) 100 mg BID PRN PO CONSTIPATION; Start 09/07/16 at 00: 00 Escitalopram Oxalate (Lexapro) 5 mg DAILY PO Last administered on 09/10/16at 08 :45; Admin Dose 5 MG; Start 09/07/16 at 09:00 Hydromorphone HCl (Dilaudid) 4 mg Q6H PRN PO PAIN Last administered on at 02:38; Admin Dose 4 MG; Start 09/07/16 at 00:00 Lactulose (Enulose) 20 gm Q8 PO Last administered on 09/10/16 13:24; Admin Dose 20 GM; Start 09/07/16 at 06:00 Lorazepam (Ativan) 0.5 mg Q6 PO Last administered on 09/08/16 05:36; Admin Dose 0.5 MG; Start 09/07/16 at 00:00 Meclizine HCl (Antivert) 25 mg TID PO Last administered on 09/10/16 13:24; Admin Dose 25 MG; Start 09/07/16 at 09:00 Megestrol Acetate (Megace Susp) 400 mg BID PO Last administered on 09/10/16 08:45; Admin Dose 400 MG; Start 09/07/16 at 09:00 Methylnaltrexone [place] (Relistor) 12 mg Q48H SC Last administered on 00:12; Admin Dose 12 MG; Start 09/07/16 at 00:00 Morphine Sulfate (Ms Contin (Er)) 15 mg Q12 PO Last administered on 09/10/16 08:45; Admin Dose 15 MG; Start 09/07/16 at 09:00 Ondansetron HCl (Zofran Tab) 4 mg Q6H PRN PO NAUSEA AND/OR VOMITING; Start at 00:00 Polyethylene Glycol 17 gm 17 gm DAILY GTB Last administered on 09/08/16 10:00 ; Admin Dose 17 GM; Start 09/07/16 at 09:00 Levofloxacin/ Dextrose (Levaquin 250 Mg/ D5W 50 ml (Pmx)) 50 ml @ 50 mls/hr Q24H IVPB Last administered on 09/10/16 01:43; Admin Dose 50 MLS/HR; Start 09/07/16 at 00:30 Acetaminophen 500 mg 500 mg Q4H PRN PO PAIN AND OR ELEVATED TEMP Last administered on 09/08/16 21:03; Admin Dose 500 MG; Start 09/07/16 at 21:30 Imipenem/ Cilastatin Sodium (Primaxin 500 Mg/ 100 ml (Pmx)) 100 ml @ 100 mls/ hr Q6 IVPB Last administered on 09/10/16 13:24; Admin Dose 100 MLS/HR; Start 09/08/16 at 00:00 Enoxaparin Sodium (Lovenox) 55 mg Q12H SC Last administered on 12/24/16at 01:05 ; Admin Dose 55 MG; Start 09/09/16 at 12:00 Leuprolide Acetate (Lupron Depot) 7.5 mg ONCE ONCE IM ; Start 09/12/16 at 09: 00; Stop 09/12/16 at 09:01; Status UNV EV ALEXIS MD Sep 10, 2016 13:41
[2016-09-10 21:00] VITALS: BP 104/69; PULSE 101; RESP 18
[2016-09-10] MEDS: METHYLNALTREXONE 12 MG/0.6 ML VIAL SC SCH (23:15)
[2016-09-11] MEDS: LEVOFLOXACIN 250MG/D5W (PMX) 50 ML IVPB SCH (00:31)
[2016-09-11] MEDS: SOD CHLORIDE 0.9% 1,000 ML IV SCH ×2 (00:32→17:37)
[2016-09-11] MEDS: IMIPENEM-CILAST 500MG IV (PMX) 100 ML IVPB SCH ×3 (05:10→17:37)
[2016-09-11] MEDS: LACTULOSE 30ML CUP PO SCH ×3 (05:10→22:14)
[2016-09-11] MEDS: LORAZEPAM 0.5 MG TAB PO SCH ×3 (05:10→17:37)
[2016-09-11] MEDS: PANTOPRAZOLE (EC) 40 MG TAB PO SCH (06:27)
[2016-09-11] MEDS: HYDROmorphONE 4 MG TAB PO PRN ×2 (07:31→18:11)
[2016-09-11 08:00] VITALS: BP 106/71; PULSE 90; RESP 18
--- NOTE | 2016-09-11 09:45 | RADRPT ---
PROCEDURE: XR Chest. CLINICAL INDICATION: PICC line placement TECHNIQUE: Single frontal view of the chest was obtained COMPARISON: 09/06/16 FINDINGS: There is a new left-sided PICC line in place with its tip overlying the cavoatrial junction. The heart is normal in size. There are new bilateral perihilar and lower lobe interstitial infiltra ileana, right greater than left. There is no pleural effusion or pneumothorax. RPTAT: AA IMPRESSION: New PICC line in appropriate position. .Christiano Berrios MD, MD Date Time Electronically viewed and signed by .Christiano Berrios MD, MD on 09/11/2016 09:45 .S/
[2016-09-11] MEDS: MEGESTROL (40 MG/ML) 10ML CUP PO SCH ×2 (09:53→20:16)
[2016-09-11] MEDS: ESCITALOPRAM 10 MG TAB PO SCH (09:53)
[2016-09-11] MEDS: MECLIZINE 25 MG TAB PO SCH ×3 (09:53→20:57)
[2016-09-11] MEDS: POLYETHYLENE GLYCOL 17 GM PACKET GTB SCH (09:53)
[2016-09-11] MEDS: morphine (ER) 15 MG TAB PO SCH ×2 (09:56→20:16)
[2016-09-11] MEDS: BICALUTAMIDE 50 MG TAB PO SCH (09:58)
--- NOTE | 2016-09-11 10:01 | RADRPT ---
PROCEDURE: Ultrasound proximal left upper extremity for PICC placement CLINICAL INDICATION: PICC placement TECHNIQUE: Sonographic evaluation of the proximal left upper extremity vessels was performed utili zing a high-frequency linear transducer. COMPARISON: None available FINDINGS: Limited evaluation of the proximal left upper extremity for vascular access for PICC placement. Genesis ssly, no abnormality is seen. IMPRESSION: Unremarkable limited proximal left upper extremity ultrasound for PICC placement. RPTAT: EE .Jay Jay Day MD, MD Date Time Electronically viewed and signed by .Jay Jay Day MD, on 09/11/2016 10:01 .A/
[2016-09-11] MEDS: ENOXAPARIN 60 MG/0.6 ML SYG SC SCH (12:00)
--- NOTE | 2016-09-11 13:00 | PN ---
Date/Time of Note Date/Time of Note DATE: 09/11/16 TIME: 12:59 Assessment/Plan VTE Prophylaxis VTE Prophylaxis Intervention: other Lines/Catheters IV Catheter Type (from Nrsg): PICC Line Central line still needed: Yes Urinary Cath still in place: Yes Reason Cath still needed: terminal illness/intractable pain Assessment/Plan Chief Complaint/Hosp Course 1) Hypotension - stable 2) Dehydration - IV fluids 3) Anemia - monitor H/H 4) Intractable pain - pain control 5) Prostate carcinoma - sp Radiation therapy by Dr Ghassan Hylton - oncology consult appreciated- Dr Silva 6) Thrombocytopenia - lovenox on hold Problems: Subjective 24 Hr Interval Summary Free Text/Dictation Patient has no complaints Exam/Review of Systems Vital Signs Vitals Vital Signs Date Time Temp Pulse Resp B/P Pulse Ox O2 Delivery O2 Flow Rate FiO2 09/11/16 08:00 97.8 90 18 106/71 95 Room Air Intake and Output 09/10/16 09/10/16 09/11/16 15:00 23:00 07:00 Intake Total 200 ml 1540 ml 1370 ml Output Total 800 ml 1450 ml Balance 200 ml 740 ml -80 ml Exam Constitutional: well developed Neck: supple Respiratory: diminished breath sounds Cardiovascular: regular rate and rhythm Gastrointestinal: non-tender, soft Extremities: normal pulses Results Result Diagram: 09/10/16 04509/10/16 045 Medications Medications Current Medications Sodium Chloride (NS) 1,000 ml @ 80 mls/hr [id number] IV Last administered on at 00:32; Admin Dose 80 MLS/HR; Start 09/06/16 at 23:30 Bicalutamide (Casodex) 50 mg QAM PO Last administered on 09/11/16at 09:58; Admin Dose 50 MG; Start 09/07/16 at 09:00 Docusate Sodium (Colace) 100 mg BID PRN PO CONSTIPATION; Start 09/07/16 at 00: 00 Escitalopram Oxalate (Lexapro) 5 mg DAILY PO Last administered on 09/11/16at 09 :53; Admin Dose 5 MG; Start 09/07/16 at 09:00 Hydromorphone HCl (Dilaudid) 4 mg Q6H PRN PO PAIN Last administered on at 07:31; Admin Dose 4 MG; Start 09/07/16 at 00:00 Lactulose (Enulose) 20 gm Q8 PO Last administered on 09/11/16 05:10; Admin Dose 20 GM; Start 09/07/16 at 06:00 Lorazepam (Ativan) 0.5 mg Q6 PO Last administered on 09/11/16 12:13; Admin Dose 0.5 MG; Start 09/07/16 at 00:00 Meclizine HCl (Antivert) 25 mg TID PO Last administered on 09/11/16 09:53; Admin Dose 25 MG; Start 09/07/16 at 09:00 Megestrol Acetate (Megace Susp) 400 mg BID PO Last administered on 09/11/16 09:53; Admin Dose 400 MG; Start 09/07/16 at 09:00 Methylnaltrexone [place] (Relistor) 12 mg Q48H SC Last administered on 23:15; Admin Dose 12 MG; Start 09/07/16 at 00:00 Morphine Sulfate (Ms Contin (Er)) 15 mg Q12 PO Last administered on 09/11/16 09:56; Admin Dose 15 MG; Start 09/07/16 at 09:00 Ondansetron HCl (Zofran Tab) 4 mg Q6H PRN PO NAUSEA AND/OR VOMITING; Start at 00:00 Polyethylene Glycol 17 gm 17 gm DAILY GTB Last administered on 09/11/16 09:53 ; Admin Dose 17 GM; Start 09/07/16 at 09:00 Levofloxacin/ Dextrose (Levaquin 250 Mg/ D5W 50 ml (Pmx)) 50 ml @ 50 mls/hr Q24H IVPB Last administered on 09/11/16 00:31; Admin Dose 50 MLS/HR; Start 09/07/16 at 00:30 Acetaminophen 500 mg 500 mg Q4H PRN PO PAIN AND OR ELEVATED TEMP Last administered on 09/08/16 21:03; Admin Dose 500 MG; Start 09/07/16 at 21:30 Imipenem/ Cilastatin Sodium (Primaxin 500 Mg/ 100 ml (Pmx)) 100 ml @ 100 mls/ hr Q6 IVPB Last administered on 09/11/16 12:13; Admin Dose 100 MLS/HR; Start 09/08/16 at 00:00 Enoxaparin Sodium (Lovenox) 55 mg Q12H SC Last administered on 09/10/16at 01:05 ; Admin Dose 55 MG; Start 09/09/16 at 12:00 Leuprolide Acetate (Lupron Depot) 7.5 mg ONCE ONCE IM ; Start 09/12/16 at 09: 00; Stop 09/12/16 at 09:01; Status UNV IV Flush (NS 10 ml) 10 ml PRN PRN IV IV PROTOCOL; Start 09/11/16 at 10:00 NASREEN DAMON Sep 11, 2016 13:00
[2016-09-11 21:20] VITALS: BP 107/71; PULSE 94; RESP 18
[2016-09-12] MEDS: LORAZEPAM 0.5 MG TAB PO SCH ×4 (00:10→18:25)
[2016-09-12] MEDS: IMIPENEM-CILAST 500MG IV (PMX) 100 ML IVPB SCH ×4 (00:10→18:23)
[2016-09-12] MEDS: LEVOFLOXACIN 250MG/D5W (PMX) 50 ML IVPB SCH (01:15)
[2016-09-12] MEDS: SOD CHLORIDE 0.9% 1,000 ML IV SCH ×2 (04:30→11:13)
[2016-09-12 05:21] LABS: BASOPHILS % 0.3 % (0.0-2.0); EOSINOPHILS % 0.2 % (0.0-7.0); HEMATOCRIT 26.5 % (42.0-52.0); LYMPHOCYTES # 0.8 10^3/ul (0.8-2.9); MEAN CORPUSCULAR HEMOGLOBIN 28.4 pg (29.0-33.0); MEAN CORPUSCULAR HGB CONC 33.9 g/dl (32.0-37.0); MEAN CORPUSCULAR VOLUME 83.6 fl (82.0-101.0); MONOCYTE # 0.5 10^3/ul (0.3-0.9); MONOCYTES % 9.4 % (0.0-11.0); NEUTROPHIL # 3.5 10^3/ul (1.6-7.5); NEUTROPHILS % 73.1 % (39.0-77.0); PLATELET COUNT 53 10^3/UL (140-440); RED BLOOD COUNT 3.17 10^6/ul (4.70-6.10); RED CELL DISTRIBUTION WIDTH 19.1 % (11.5-14.5); UNCORRECTED WBC 4.8 10^3/ul (4.8-10.8); WHITE BLOOD COUNT 4.8 10^3/ul (4.8-10.8)
[2016-09-12 05:22] LABS: CONDITION 1; LH ANALYZER COMMENTS 1
[2016-09-12 05:28] LABS: POTASSIUM 3.5 mmol/L (3.5-5.1)
[2016-09-12 05:31] LABS: CREATININE 0.33 mg/dl (0.61-1.24)
[2016-09-12 05:42] LABS: CALCIUM 5.8 mg/dl (8.4-10.2)
[2016-09-12] MEDS: LACTULOSE 30ML CUP PO SCH ×3 (06:06→21:52)
[2016-09-12 08:00] VITALS: BP 112/75; PULSE 93; RESP 16
[2016-09-12] MEDS: MEGESTROL (40 MG/ML) 10ML CUP PO SCH ×2 (08:04→20:28)
[2016-09-12] MEDS: POLYETHYLENE GLYCOL 17 GM PACKET GTB SCH (08:05)
[2016-09-12] MEDS: PANTOPRAZOLE (EC) 40 MG TAB PO SCH (08:05)
[2016-09-12] MEDS: MECLIZINE 25 MG TAB PO SCH ×3 (08:05→20:29)
[2016-09-12] MEDS: ESCITALOPRAM 10 MG TAB PO SCH (08:05)
[2016-09-12] MEDS: morphine (ER) 15 MG TAB PO SCH ×2 (08:11→20:29)
[2016-09-12] MEDS: BICALUTAMIDE 50 MG TAB PO SCH (08:38)
[2016-09-12] MEDS: HYDROmorphONE 2 MG TAB PO PRN ×2 (09:57→17:24)
[2016-09-12] MEDS: ENOXAPARIN 60 MG/0.6 ML SYG SC SCH ×2 (11:04)
[2016-09-12] MEDS: CALCIUM/VITAMIN D (500/200) TAB PO SCH ×2 (13:52→20:29)
--- NOTE | 2016-09-12 14:04 | PN ---
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 Irene Zhu and managed by Dr. Suzan Hernandez, referred to [facility] for weakness and dehydration. He has not seen Dr. Hernandez in awhile. 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 Would recommend therapeutic anticoagulation lovenox 1 mg/kg Q12 for DIC 2/2 malignancy, and also for history of Left thrombosed calf vein in the setting of malignancy. Platelets stable for safe dosing now - Few fragments on smear which can be consistent with DIC, iron panel suggests anemia of chronic inflammation; Vitamin B12/folate WNL - Retic count inappropriately low and bili normal which argues against significant hemolysis though LDH 2523 which may be related to tumor burden - Continue to follow counts, goal > 8, plt > 10 or if bleeding. s/p 1 unit pRBC # Metastatic prostate cancer, s/p radiation for cord compression per Dr. Zhu in the past - Requesting records from Dr. Hernandez and Dr. Zhu's office. Please see Consult addendum by Dr Montoya - Patient is on Casodex, unclear whether receiving Lupron, unclear when last CT scan - Consider chemotherapy if platelets improve # Thrombosed L calf vein - negative repeat dopplers, lovenox as above. Subjective 24 Hr Interval Summary Constitutional: no complaints Eyes: no complaints Respiratory: no complaints Exam/Review of Systems Vital Signs Vitals Vital Signs Date Time Temp Pulse Resp B/P Pulse Ox O2 Delivery O2 Flow Rate FiO2 09/12/16 08:00 98.3 93 16 112/75 96 Room Air Intake and Output 09/11/16 09/11/16 09/12/16 15:00 23:00 07:00 Intake Total 1520 ml 1150 ml Output Total 1000 ml 1600 ml Balance 520 ml -450 ml Exam Constitutional: oriented Eyes: nl conjunctiva Neck: supple Respiratory: normal air movement Gastrointestinal: soft Results Result Diagram: 09/12/16 04209/12/16 042 Results 24 hrs Laboratory Tests Test 09/12/16 04:20 Anion Gap 12 Basophils # 0.0 Basophils % 0.3 Blood Morphology Comment Blood Urea Nitrogen 5 L Calcium Level 5.8 *L Carbon Dioxide Level 23 Chloride Level 109 Creatinine 0.33 L Eosinophils # 0.0 Eosinophils % 0.2 Glucose Level 83 Hematocrit 26.5 L Hemoglobin 9.0 L Lymphocytes # 0.8 Lymphocytes % 17.0 Mean Corpuscular Hemoglobin 28.4 L Mean Corpuscular Hemoglobin Concent 33.9 Mean Corpuscular Volume 83.6 Mean Platelet Volume 8.0 Monocytes # 0.5 Monocytes % 9.4 Neutrophils # 3.5 Neutrophils % 73.1 Nucleated Red Blood Cells # 0.0 Nucleated Red Blood Cells % 0.0 Platelet Count 53 #L Potassium Level 3.5 Red Blood Count 3.17 L Red Cell Distribution Width 19.1 H Sodium Level 140 White Blood Count 4.8 Medications Medications Current Medications Sodium Chloride (NS) 1,000 ml @ 80 mls/hr [id number] IV Last administered on at 11:13; Admin Dose 80 MLS/HR; Start 09/06/16 at 23:30 Bicalutamide (Casodex) 50 mg QAM PO Last administered on 09/12/16at 08:38; Admin Dose 50 MG; Start 09/07/16 at 09:00 Docusate Sodium (Colace) 100 mg BID PRN PO CONSTIPATION; Start 09/07/16 at 00: 00 Escitalopram Oxalate (Lexapro) 5 mg DAILY PO Last administered on 09/12/16at 08 :05; Admin Dose 5 MG; Start 09/07/16 at 09:00 Lactulose (Enulose) 20 gm Q8 PO Last administered on 09/12/16at 13:01; Admin Dose 20 GM; Start 09/07/16 at 06:00 Lorazepam (Ativan) 0.5 mg Q6 PO Last administered on 09/12/16at 11:48; Admin Dose 0.5 MG; Start 09/07/16 at 00:00 Meclizine HCl (Antivert) 25 mg TID PO Last administered on 09/12/16at 12:58; Admin Dose 25 MG; Start 09/07/16 at 09:00 Megestrol Acetate (Megace Susp) 400 mg BID PO Last administered on 09/12/16at 08:04; Admin Dose 400 MG; Start 09/07/16 at 09:00 Methylnaltrexone [place] (Relistor) 12 mg Q48H SC Last administered on at 23:15; Admin Dose 12 MG; Start 09/07/16 at 00:00 Morphine Sulfate (Ms Contin (Er)) 15 mg Q12 PO Last administered on 09/12/16at 08:11; Admin Dose 15 MG; Start 09/07/16 at 09:00 Ondansetron HCl (Zofran Tab) 4 mg Q6H PRN PO NAUSEA AND/OR VOMITING; Start at 00:00 Polyethylene Glycol 17 gm 17 gm DAILY GTB Last administered on 09/12/16at 08:05 ; Admin Dose 17 GM; Start 09/07/16 at 09:00 Levofloxacin/ Dextrose (Levaquin 250 Mg/ D5W 50 ml (Pmx)) 50 ml @ 50 mls/hr Q24H IVPB Last administered on 09/12/16at 01:15; Admin Dose 50 MLS/HR; Start 09/07/16 at 00:30 Acetaminophen 500 mg 500 mg Q4H PRN PO PAIN AND OR ELEVATED TEMP Last administered on 09/08/16at 21:03; Admin Dose 500 MG; Start 09/07/16 at 21:30 Imipenem/ Cilastatin Sodium (Primaxin 500 Mg/ 100 ml (Pmx)) 100 ml @ 100 mls/ hr Q6 IVPB Last administered on 09/12/16 11:48; Admin Dose 100 MLS/HR; Start 09/08/16 at 00:00 Enoxaparin Sodium (Lovenox) 55 mg Q12H SC Last administered on 09/10/16 01:05 ; Admin Dose 55 MG; Start 09/09/16 at 12:00 Leuprolide Acetate (Lupron [place]) 7.5 mg ONCE ONCE IM ; Start 09/12/16 at 09: 00; Stop 09/12/16 at 09:01; Status UNV IV Flush (NS 10 ml) 10 ml PRN PRN IV IV PROTOCOL; Start 09/11/16 at 10:00 Hydromorphone HCl (Dilaudid) 4 mg Q6H PRN PO PAIN Last administered on at 09:57; Admin Dose 4 MG; Start 09/12/16 at 09:30 Calcium/Vitamin D (Oyster Shell/ Vit-D (500/200)) 1 tab BID PO Last administered on 09/12/16at 13:52; Admin Dose 1 TAB; Start 09/12/16 at 14:00 EV ALEXIS MD Sep 12, 2016 14:03
--- NOTE | 2016-09-12 15:57 | PN ---
Date/Time of Note Date/Time of Note DATE: 09/12/16 TIME: 15:56 Assessment/Plan VTE Prophylaxis VTE Prophylaxis Intervention: SCD's Lines/Catheters IV Catheter Type (from Nrsg): PICC Line Central line still needed: Yes Urinary Cath still in place: Yes Reason Cath still needed: urinary retention Assessment/Plan Assessment/Plan 1) Hypotension - stable 2) Dehydration - IV fluids 3) Anemia - monitor H/H 4) Intractable pain - pain control 5) Prostate carcinoma - sp Radiation therapy by Dr Ghassan Hylton - oncology consult appreciated- Dr Silva 6) Thrombocytopenia - lovenox on hold 7 Hypocalcemia Subjective 24 Hr Interval Summary Constitutional: no complaints, requiring O2 Respiratory: no complaints Cardiovascular: no complaints Gastrointestinal: no complaints Exam/Review of Systems Vital Signs Vitals Vital Signs Date Time Temp Pulse Resp B/P Pulse Ox O2 Delivery O2 Flow Rate FiO2 09/12/16 08:00 98.3 93 16 112/75 96 Room Air Intake and Output 09/11/16 09/11/16 09/12/16 15:00 23:00 07:00 Intake Total 1520 ml 1150 ml Output Total 1000 ml 1600 ml Balance 520 ml -450 ml Exam Constitutional: alert, frail Psych: nl mood/affect Head: atraumatic Eyes: PERRL, nl sclera ENMT: nl external ears & nose Neck: non-tender Respiratory: diminished breath sounds Cardiovascular: nl pulses Gastrointestinal: non-tender, soft 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: nl speech Skin: nl turgor Lymph: nontender Results Result Diagram: 09/12/16 0420 09/12/16 0420 Results 24 hrs Laboratory Tests Test 09/12/16 04:20 Anion Gap 12 Basophils # 0.0 Basophils % 0.3 Blood Morphology Comment Blood Urea Nitrogen 5 L Calcium Level 5.8 *L Carbon Dioxide Level 23 Chloride Level 109 Creatinine 0.33 L Eosinophils # 0.0 Eosinophils % 0.2 Glucose Level 83 Hematocrit 26.5 L Hemoglobin 9.0 L Lymphocytes # 0.8 Lymphocytes % 17.0 Mean Corpuscular Hemoglobin 28.4 L Mean Corpuscular Hemoglobin Concent 33.9 Mean Corpuscular Volume 83.6 Mean Platelet Volume 8.0 Monocytes # 0.5 Monocytes % 9.4 Neutrophils # 3.5 Neutrophils % 73.1 Nucleated Red Blood Cells # 0.0 Nucleated Red Blood Cells % 0.0 Platelet Count 53 #L Potassium Level 3.5 Red Blood Count 3.17 L Red Cell Distribution Width 19.1 H Sodium Level 140 White Blood Count 4.8 Medications Medications Current Medications Sodium Chloride (NS) 1,000 ml @ 80 mls/hr [id number] IV Last administered on 11:13; Admin Dose 80 MLS/HR; Start 09/06/16 at 23:30 Bicalutamide (Casodex) 50 mg QAM PO Last administered on 09/12/16 08:38; Admin Dose 50 MG; Start 09/07/16 at 09:00 Docusate Sodium (Colace) 100 mg BID PRN PO CONSTIPATION; Start 09/07/16 at 00: 00 Escitalopram Oxalate (Lexapro) 5 mg DAILY PO Last administered on 09/12/16 08 :05; Admin Dose 5 MG; Start 09/07/16 at 09:00 Lactulose (Enulose) 20 gm Q8 PO Last administered on 09/12/16 13:01; Admin Dose 20 GM; Start 09/07/16 at 06:00 Lorazepam (Ativan) 0.5 mg Q6 PO Last administered on 09/12/16 11:48; Admin Dose 0.5 MG; Start 09/07/16 at 00:00 Meclizine HCl (Antivert) 25 mg TID PO Last administered on 09/12/16 12:58; Admin Dose 25 MG; Start 09/07/16 at 09:00 Megestrol Acetate (Megace Susp) 400 mg BID PO Last administered on 09/12/16 08:04; Admin Dose 400 MG; Start 09/07/16 at 09:00 Methylnaltrexone [place] (Relistor) 12 mg Q48H SC Last administered on 23:15; Admin Dose 12 MG; Start 09/07/16 at 00:00 Morphine Sulfate (Ms Contin (Er)) 15 mg Q12 PO Last administered on 09/12/16 08:11; Admin Dose 15 MG; Start 09/07/16 at 09:00 Ondansetron HCl (Zofran Tab) 4 mg Q6H PRN PO NAUSEA AND/OR VOMITING; Start at 00:00 Polyethylene Glycol 17 gm 17 gm DAILY GTB Last administered on 09/12/16 08:05 ; Admin Dose 17 GM; Start 09/07/16 at 09:00 Levofloxacin/ Dextrose (Levaquin 250 Mg/ D5W 50 ml (Pmx)) 50 ml @ 50 mls/hr Q24H IVPB Last administered on 09/12/16at 01:15; Admin Dose 50 MLS/HR; Start 09/07/16 at 00:30 Acetaminophen 500 mg 500 mg Q4H PRN PO PAIN AND OR ELEVATED TEMP Last administered on 09/08/16at 21:03; Admin Dose 500 MG; Start 09/07/16 at 21:30 Imipenem/ Cilastatin Sodium (Primaxin 500 Mg/ 100 ml (Pmx)) 100 ml @ 100 mls/ hr Q6 IVPB Last administered on 09/12/16at 11:48; Admin Dose 100 MLS/HR; Start 09/08/16 at 00:00 Enoxaparin Sodium (Lovenox) 55 mg Q12H SC Last administered on 09/10/16at 01:05 ; Admin Dose 55 MG; Start 09/09/16 at 12:00 Leuprolide Acetate (Lupron Depot) 7.5 mg ONCE ONCE IM ; Start 09/12/16 at 09: 00; Stop 09/12/16 at 09:01; Status UNV IV Flush (NS 10 ml) 10 ml PRN PRN IV IV PROTOCOL; Start 09/11/16 at 10:00 Hydromorphone HCl (Dilaudid) 4 mg Q6H PRN PO PAIN Last administered on at 09:57; Admin Dose 4 MG; Start 09/12/16 at 09:30 Calcium/Vitamin D (Oyster Shell/ Vit-D (500/200)) 1 tab BID PO Last administered on 09/12/16at 13:52; Admin Dose 1 TAB; Start 09/12/16 at 14:00 KENADL BELLO Sep 12, 2016 15:57
[2016-09-12 20:00] VITALS: BP 110/67; PULSE 95; RESP 19
[2016-09-13] MEDS: IMIPENEM-CILAST 500MG IV (PMX) 100 ML IVPB SCH ×4 (00:13→18:32)
[2016-09-13] MEDS: LORAZEPAM 0.5 MG TAB PO SCH ×4 (00:14→18:32)
[2016-09-13] MEDS: ENOXAPARIN 60 MG/0.6 ML SYG SC SCH ×2 (00:15→12:30)
[2016-09-13] MEDS: METHYLNALTREXONE 12 MG/0.6 ML VIAL SC SCH (00:16)
[2016-09-13] MEDS: LEVOFLOXACIN 250MG/D5W (PMX) 50 ML IVPB SCH ×2 (01:20→23:44)
[2016-09-13] MEDS: SOD CHLORIDE 0.9% 1,000 ML IV SCH ×3 (04:53→19:10)
[2016-09-13] MEDS: PANTOPRAZOLE (EC) 40 MG TAB PO SCH (05:36)
[2016-09-13] MEDS: LACTULOSE 30ML CUP PO SCH ×3 (05:36→21:08)
[2016-09-13 06:11] LABS: POTASSIUM 3.6 mmol/L (3.5-5.1)
[2016-09-13 06:13] LABS: CREATININE 0.34 mg/dl (0.61-1.24)
[2016-09-13 06:14] LABS: BASOPHILS % 0.5 % (0.0-2.0); CALCIUM 6.1 mg/dl (8.4-10.2); EOSINOPHILS % 0.1 % (0.0-7.0); HEMATOCRIT 26.6 % (42.0-52.0); HEMOGLOBIN 8.9 g/dl (14.0-18.0); LYMPHOCYTES # 1.1 10^3/ul (0.8-2.9); LYMPHOCYTES % 21.4 % (15.0-51.0); MEAN CORPUSCULAR HEMOGLOBIN 28.3 pg (29.0-33.0); MEAN CORPUSCULAR HGB CONC 33.5 g/dl (32.0-37.0); MEAN CORPUSCULAR VOLUME 84.2 fl (82.0-101.0); MEAN PLATELET VOLUME 7.5 fl (7.4-10.4); MONOCYTE # 0.4 10^3/ul (0.3-0.9); MONOCYTES % 8.4 % (0.0-11.0); NEUTROPHIL # 3.6 10^3/ul (1.6-7.5); NEUTROPHILS % 69.6 % (39.0-77.0); PLATELET COUNT 65 10^3/UL (140-440); RED BLOOD COUNT 3.16 10^6/ul (4.70-6.10); RED CELL DISTRIBUTION WIDTH 19.2 % (11.5-14.5); UNCORRECTED WBC 5.2 10^3/ul (4.8-10.8); WHITE BLOOD COUNT 5.2 10^3/ul (4.8-10.8)
[2016-09-13 07:16] LABS: CONDITION 1; LH ANALYZER COMMENTS 1
[2016-09-13 08:00] VITALS: BP 108/76; PULSE 88; RESP 16
[2016-09-13] MEDS: morphine (ER) 15 MG TAB PO SCH ×2 (09:28→21:08)
[2016-09-13] MEDS: ESCITALOPRAM 10 MG TAB PO SCH (09:28)
[2016-09-13] MEDS: MECLIZINE 25 MG TAB PO SCH ×3 (09:28→21:08)
[2016-09-13] MEDS: CALCIUM/VITAMIN D (500/200) TAB PO SCH ×2 (09:28→21:08)
[2016-09-13] MEDS: BICALUTAMIDE 50 MG TAB PO SCH (09:30)
[2016-09-13] MEDS: MEGESTROL (40 MG/ML) 10ML CUP PO SCH ×2 (09:37→21:08)
[2016-09-13] MEDS: POLYETHYLENE GLYCOL 17 GM PACKET GTB SCH (09:37)
[2016-09-13] MEDS ORDERED: LEUPROLIDE 7.5 MG INJ IM ONE ×2 (10:00→16:30)
[2016-09-13 11:14] LABS: PLATELET ESTIMATE PLT APPEAR DECREASED
--- NOTE | 2016-09-13 14:50 | PN ---
Date/Time of Note Date/Time of Note DATE: 09/13/16 TIME: 14:49 Assessment/Plan VTE Prophylaxis VTE Prophylaxis Intervention: other Lines/Catheters IV Catheter Type (from Nrsg): PICC Line Central line still needed: Yes Urinary Cath still in place: Yes Reason Cath still needed: skin wounds contaminated by urine Assessment/Plan Chief Complaint/Hosp Course 1) Hypotension - stable 2) Dehydration - IV fluids 3) Anemia - monitor H/H 4) Intractable pain - pain control 5) Prostate carcinoma - sp Radiation therapy by Dr Ghassan Hylton - oncology consult appreciated- Dr Silva 6) Thrombocytopenia - lovenox on hold Problems: Subjective 24 Hr Interval Summary Free Text/Dictation Patient has no complaints Exam/Review of Systems Vital Signs Vitals Vital Signs Date Time Temp Pulse Resp B/P Pulse Ox O2 Delivery O2 Flow Rate FiO2 09/13/16 08:00 98.3 88 16 108/76 96 Room Air Intake and Output 09/12/16 09/12/16 09/13/16 15:00 23:00 07:00 Intake Total 300 ml 2000 ml 1830 ml Output Total 1500 ml 2050 ml Balance 300 ml 500 ml -220 ml Exam Constitutional: alert, well developed Respiratory: clear to auscultation Cardiovascular: regular rate and rhythm Gastrointestinal: non-tender, soft Extremities: normal pulses Results Result Diagram: 09/13/16 0435 09/13/16 0435 Results 24 hrs Laboratory Tests Test 09/13/16 04:35 Anion Gap 13 Basophils # 0.0 Basophils % 0.5 Blood Morphology Comment Blood Urea Nitrogen 5 L Calcium Level 6.1 L Carbon Dioxide Level 22 Chloride Level 108 Creatinine 0.34 L Eosinophils # 0.0 Eosinophils % 0.1 Glucose Level 83 Hematocrit 26.6 L Hemoglobin 8.9 L Lymphocytes # 1.1 Lymphocytes % 21.4 Mean Corpuscular Hemoglobin 28.3 L Mean Corpuscular Hemoglobin Concent 33.5 Mean Corpuscular Volume 84.2 Mean Platelet Volume 7.5 Monocytes # 0.4 Monocytes % 8.4 Neutrophils # 3.6 Neutrophils % 69.6 Nucleated Red Blood Cells # 0.0 Nucleated Red Blood Cells % 0.0 Platelet Count 65 #L Platelet Estimate PLT APPEAR DECREASED Potassium Level 3.6 Red Blood Count 3.16 L Red Cell Distribution Width 19.2 H Sodium Level 139 White Blood Count 5.2 Medications Medications Current Medications Sodium Chloride (NS) 1,000 ml @ 80 mls/hr [id number] IV Last administered on 04:53; Admin Dose 80 MLS/HR; Start 09/06/16 at 23:30 Bicalutamide (Casodex) 50 mg QAM PO Last administered on 09/13/16 09:30; Admin Dose 50 MG; Start 09/07/16 at 09:00 Docusate Sodium (Colace) 100 mg BID PRN PO CONSTIPATION; Start 09/07/16 at 00: 00 Escitalopram Oxalate (Lexapro) 5 mg DAILY PO Last administered on 09/13/16 09 :28; Admin Dose 5 MG; Start 09/07/16 at 09:00 Lactulose (Enulose) 20 gm Q8 PO Last administered on 09/13/16 05:36; Admin Dose 20 GM; Start 09/07/16 at 06:00 Lorazepam (Ativan) 0.5 mg Q6 PO Last administered on 09/13/16 12:18; Admin Dose 0.5 MG; Start 09/07/16 at 00:00 Meclizine HCl (Antivert) 25 mg TID PO Last administered on 09/13/16 09:28; Admin Dose 25 MG; Start 09/07/16 at 09:00 Megestrol Acetate (Megace Susp) 400 mg BID PO Last administered on 09/13/16 09:37; Admin Dose 400 MG; Start 09/07/16 at 09:00 Methylnaltrexone [place] (Relistor) 12 mg Q48H SC Last administered on 00:16; Admin Dose 12 MG; Start 09/07/16 at 00:00 Morphine Sulfate (Ms Contin (Er)) 15 mg Q12 PO Last administered on 09/13/16 09:28; Admin Dose 15 MG; Start 09/07/16 at 09:00 Ondansetron HCl (Zofran Tab) 4 mg Q6H PRN PO NAUSEA AND/OR VOMITING; Start at 00:00 Polyethylene Glycol 17 gm 17 gm DAILY GTB Last administered on 09/13/16 09:37 ; Admin Dose 17 GM; Start 09/07/16 at 09:00 Levofloxacin/ Dextrose (Levaquin 250 Mg/ D5W 50 ml (Pmx)) 50 ml @ 50 mls/hr Q24H IVPB Last administered on 09/13/16 01:20; Admin Dose 50 MLS/HR; Start 09/07/16 at 00:30 Acetaminophen 500 mg 500 mg Q4H PRN PO PAIN AND OR ELEVATED TEMP Last administered on 09/08/16 21:03; Admin Dose 500 MG; Start 09/07/16 at 21:30 Imipenem/ Cilastatin Sodium (Primaxin 500 Mg/ 100 ml (Pmx)) 100 ml @ 100 mls/ hr Q6 IVPB Last administered on 09/13/16at 12:18; Admin Dose 100 MLS/HR; Start 09/08/16 at 00:00 Enoxaparin Sodium (Lovenox) 55 mg Q12H SC Last administered on 09/13/16 12:30 ; Admin Dose 55 MG; Start 09/09/16 at 12:00 IV Flush (NS 10 ml) 10 ml PRN PRN IV IV PROTOCOL; Start 09/11/16 at 10:00 Hydromorphone HCl (Dilaudid) 4 mg Q6H PRN PO PAIN Last administered on 17:24; Admin Dose 4 MG; Start 09/12/16 at 09:30 Calcium/Vitamin D (Oyster Shell/ Vit-D (500/200)) 1 tab BID PO Last administered on 09/13/16at 09:28; Admin Dose 1 TAB; Start 09/12/16 at 14:00 NASREEN DAMON Sep 13, 2016 14:50
[2016-09-13] MEDS: HYDROmorphONE 2 MG TAB PO PRN (16:16)
[2016-09-13 20:20] VITALS: BP 119/74; PULSE 91; RESP 18
[2016-09-14] MEDS: LORAZEPAM 0.5 MG TAB PO SCH ×5 (00:07→23:56)
[2016-09-14] MEDS: ENOXAPARIN 60 MG/0.6 ML SYG SC SCH ×3 (00:08→23:57)
[2016-09-14] MEDS: IMIPENEM-CILAST 500MG IV (PMX) 100 ML IVPB SCH ×2 (00:16→05:55)
[2016-09-14] MEDS: LACTULOSE 30ML CUP PO SCH ×3 (05:55→21:06)
[2016-09-14] MEDS: PANTOPRAZOLE (EC) 40 MG TAB PO SCH (05:55)
[2016-09-14] MEDS: HYDROmorphONE 2 MG TAB PO PRN ×2 (06:29→16:04)
[2016-09-14 08:34] VITALS: BP 118/77; PULSE 88; RESP 18
[2016-09-14] MEDS: morphine (ER) 15 MG TAB PO SCH ×2 (09:55→21:07)
[2016-09-14] MEDS: MEGESTROL (40 MG/ML) 10ML CUP PO SCH ×2 (09:55→21:07)
[2016-09-14] MEDS: POLYETHYLENE GLYCOL 17 GM PACKET GTB SCH (09:55)
[2016-09-14] MEDS: MECLIZINE 25 MG TAB PO SCH ×3 (09:56→21:07)
[2016-09-14] MEDS: BICALUTAMIDE 50 MG TAB PO SCH (09:56)
[2016-09-14] MEDS: ESCITALOPRAM 10 MG TAB PO SCH (09:57)
[2016-09-14] MEDS: CALCIUM/VITAMIN D (500/200) TAB PO SCH ×2 (09:57→21:07)
--- NOTE | 2016-09-14 14:01 | PN ---
Date/Time of Note Date/Time of Note DATE: 09/14/16 TIME: 14:00 Assessment/Plan VTE Prophylaxis VTE Prophylaxis Intervention: other Lines/Catheters IV Catheter Type (from Nrsg): PICC Line Central line still needed: Yes Urinary Cath still in place: Yes Reason Cath still needed: skin wounds contaminated by urine Assessment/Plan Chief Complaint/Hosp Course 1) Hypotension - stable 2) Dehydration - IV fluids 3) Anemia - monitor H/H 4) Intractable pain - pain control 5) Prostate carcinoma - sp Radiation therapy by Dr Ghassan Hylton - oncology consult appreciated- Dr Silva 6) Thrombocytopenia - lovenox on hold Problems: Subjective 24 Hr Interval Summary Free Text/Dictation Patient has no complaints Exam/Review of Systems Vital Signs Vitals Vital Signs Date Time Temp Pulse Resp B/P Pulse Ox O2 Delivery O2 Flow Rate FiO2 09/14/16 08:34 97.9 88 18 118/77 98 Room Air Intake and Output 09/13/16 09/13/16 09/14/16 15:00 23:00 07:00 Intake Total 100 ml 1925 ml 1500 ml Output Total 2100 ml 1700 ml Balance 100 ml -175 ml -200 ml Exam Constitutional: well developed Neck: supple Respiratory: clear to auscultation Cardiovascular: regular rate and rhythm Gastrointestinal: non-tender, soft Results Result Diagram: 09/13/1643409/13/16434 Medications Medications Current Medications Sodium Chloride (NS) 1,000 ml @ 80 mls/hr [id number] IV Last administered on at 19:10; Admin Dose 80 MLS/HR; Start 09/06/16 at 23:30 Bicalutamide (Casodex) 50 mg QAM PO Last administered on 09/14/16at 09:56; Admin Dose 50 MG; Start 09/07/16 at 09:00 Docusate Sodium (Colace) 100 mg BID PRN PO CONSTIPATION; Start 09/07/16 at 00: 00 Escitalopram Oxalate (Lexapro) 5 mg DAILY PO Last administered on 09/14/16at 09 :57; Admin Dose 5 MG; Start 09/07/16 at 09:00 Lactulose (Enulose) 20 gm Q8 PO Last administered on 09/14/16at 05:55; Admin Dose 20 GM; Start 09/07/16 at 06:00 Lorazepam (Ativan) 0.5 mg Q6 PO Last administered on 09/14/16 12:43; Admin Dose 0.5 MG; Start 09/07/16 at 00:00 Meclizine HCl (Antivert) 25 mg TID PO Last administered on 09/14/16 12:36; Admin Dose 25 MG; Start 09/07/16 at 09:00 Megestrol Acetate (Megace Susp) 400 mg BID PO Last administered on 09/14/16 09:55; Admin Dose 400 MG; Start 09/07/16 at 09:00 Methylnaltrexone [place] (Relistor) 12 mg Q48H SC Last administered on 00:16; Admin Dose 12 MG; Start 09/07/16 at 00:00 Morphine Sulfate (Ms Contin (Er)) 15 mg Q12 PO Last administered on 09/14/16 09:55; Admin Dose 15 MG; Start 09/07/16 at 09:00 Ondansetron HCl (Zofran Tab) 4 mg Q6H PRN PO NAUSEA AND/OR VOMITING; Start at 00:00 Polyethylene Glycol (Miralax) 17 gm DAILY GTB Last administered on 09/14/16 09:55; Admin Dose 17 GM; Start 09/07/16 at 09:00 Acetaminophen (Tylenol Tab) 500 mg Q4H PRN PO PAIN AND OR ELEVATED TEMP Last administered on 09/08/16 21:03; Admin Dose 500 MG; Start 09/07/16 at 21:30 Enoxaparin Sodium (Lovenox) 55 mg Q12H SC Last administered on 09/14/16 12:39 ; Admin Dose 55 MG; Start 09/09/16 at 12:00 IV Flush (NS 10 ml) 10 ml PRN PRN IV IV PROTOCOL; Start 09/11/16 at 10:00 Hydromorphone HCl (Dilaudid) 4 mg Q6H PRN PO PAIN Last administered on 06:29; Admin Dose 4 MG; Start 09/12/16 at 09:30 Calcium/Vitamin D (Oyster Shell/ Vit-D (500/200)) 1 tab BID PO Last administered on 09/14/16 09:57; Admin Dose 1 TAB; Start 12/26/16 at 14:00 NASREEN DAMON Sep 14, 2016 14:01
--- NOTE | 2016-09-14 14:51 | CONS ---
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 Irene Zhu and managed by Dr. Suzan Hernandez, referred to [facility] for weakness and dehydration. He has not seen Dr. Hernandez in awhile. 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 Continue therapeutic anticoagulation lovenox 1 mg/kg Q12 for DIC 2/2 malignancy, and also for history of left thrombosed calf vein in the setting of malignancy. Platelets stable for safe dosing now. - Few fragments on smear which can be consistent with DIC, iron panel suggests anemia of chronic inflammation; Vitamin B12/folate WNL - Retic count inappropriately low and bili normal which argues against significant hemolysis though LDH 2523 which may be related to tumor burden - Continue to follow counts, goal > 8, plt > 10 or if bleeding. s/p 1 unit pRBC # Metastatic prostate cancer, s/p radiation for cord compression per Dr. Zhu in the past - Per Dr. Zhu's prior note from 05/2016: The patient is a 60M who was hospitalized at [facility] for weakness. A work up revealed multiple lesions consistent with bone metastases. The patient does not recall his PSA, but feels that it was around 400 ng/mL. He was referred to [facility] and a prostate biopsy demonstrated [place] 9 disease in all cores. Per a medical report that the patient provides, there was a "positive bone scan and positive CT scan". He was started on androgen deprivation, and takes Bicalutamide daily. He also received an injection of Xjeva after which the pain in his lower back started. The patient was admitted to [facility] for severe bilateral lower extremity pain specifically radiating from his lower back to his thighs. An MRI of the L spine demonstrated at L3 - L4, enhancing epidural soft tissue along the posterior aspect of the L3 vertebral body, more pronounced left paracentrally with extension into the left neural foramen concerning for metastases disease. Associated moderate left foraminal stenosis and contact with the exiting left L3 nerve root. An MRI of the T spine demonstrated at T2-3, left paracentral/foraminal epidural enhancing soft tissue measuring 3-4 mm with associated moderate to marked left foraminal stenosis. Mild flattening of left lateral aspect of the spinal cord. He received radiation to L2-5 and T1-4 and but then re-presented the next month with recurrent pain. During the second hospitalization, epidural involvement at T12 with spinal canal narrowing, patient was evaluated by Dr. Mao in neurosurgery. No surgery recommended at this time, and received radiation treatment to T10-L1. Follow up with Dr. Hunter fell through and he has not been seen recently. Reportedly he was on monthly Lupron as of July but does not appear he has been on it recently." - New PSA now > 1000, pending testosterone level. - New CAP 09/09/16 shows extensive sclerotic metastatic disease, and increased bilateral iliac chain LAD. - Received Lupron 7.5 mg 09/13/16. Continue casodex. - s/p zometa 09/09/16 - Consider chemotherapy with taxotere if platelets continue to improve # Thrombosed L calf vein - negative repeat dopplers, lovenox as above. Problems: Consultation Date/Type/Reason Admit Date/Time Sep 06, 2016 at 22:01 Initial Consult Date 09/08/16 Type of Consultation: Hematology/Oncology 24 HR Interval Summary Free Text/Dictation Patient does not have pain, no overnight events. Exam/Review of Systems Vital Signs Vitals Vital Signs Date Time Temp Pulse Resp B/P Pulse Ox O2 Delivery O2 Flow Rate FiO2 09/14/16 08:34 97.9 88 18 118/77 98 Room Air Intake and Output 09/13/16 09/13/16 09/14/16 15:00 23:00 07:00 Intake Total 100 ml 1925 ml 1500 ml Output Total 2100 ml 1700 ml Balance 100 ml -175 ml -200 ml Exam Constitutional: oriented Psych: no complaints Head: normocephalic Eyes: nl conjunctiva Neck: supple Respiratory: clear to auscultation Cardiovascular: regular rate and rhythm Gastrointestinal: non-tender, soft Musculoskeletal: nl extremities to inspection Results Result Diagram: 09/13/1643409/13/16434 Medications Medications Current Medications Sodium Chloride (NS) 1,000 ml @ 80 mls/hr [id number] IV Last administered on 19:10; Admin Dose 80 MLS/HR; Start 09/06/16 at 23:30 Bicalutamide (Casodex) 50 mg QAM PO Last administered on 09/14/16 09:56; Admin Dose 50 MG; Start 09/07/16 at 09:00 Docusate Sodium (Colace) 100 mg BID PRN PO CONSTIPATION; Start 09/07/16 at 00: 00 Escitalopram Oxalate (Lexapro) 5 mg DAILY PO Last administered on 09/14/16 09 :57; Admin Dose 5 MG; Start 09/07/16 at 09:00 Lactulose (Enulose) 20 gm Q8 PO Last administered on 09/14/16 05:55; Admin Dose 20 GM; Start 09/07/16 at 06:00 Lorazepam (Ativan) 0.5 mg Q6 PO Last administered on 09/14/16 12:43; Admin Dose 0.5 MG; Start 09/07/16 at 00:00 Meclizine HCl (Antivert) 25 mg TID PO Last administered on 09/14/16 12:36; Admin Dose 25 MG; Start 09/07/16 at 09:00 Megestrol Acetate (Megace Susp) 400 mg BID PO Last administered on 09/14/16 09:55; Admin Dose 400 MG; Start 09/07/16 at 09:00 Methylnaltrexone [place] (Relistor) 12 mg Q48H SC Last administered on at 00:16; Admin Dose 12 MG; Start 09/07/16 at 00:00 Morphine Sulfate (Ms Contin (Er)) 15 mg Q12 PO Last administered on 09/14/16 09:55; Admin Dose 15 MG; Start 09/07/16 at 09:00 Ondansetron HCl (Zofran Tab) 4 mg Q6H PRN PO NAUSEA AND/OR VOMITING; Start at 00:00 Polyethylene Glycol (Miralax) 17 gm DAILY GTB Last administered on 09/14/16 09:55; Admin Dose 17 GM; Start 09/07/16 at 09:00 Acetaminophen (Tylenol Tab) 500 mg Q4H PRN PO PAIN AND OR ELEVATED TEMP Last administered on 09/08/16at 21:03; Admin Dose 500 MG; Start 09/07/16 at 21:30 Enoxaparin Sodium (Lovenox) 55 mg Q12H SC Last administered on 09/14/16at 12:39 ; Admin Dose 55 MG; Start 09/09/16 at 12:00 IV Flush (NS 10 ml) 10 ml PRN PRN IV IV PROTOCOL; Start 09/11/16 at 10:00 Hydromorphone HCl (Dilaudid) 4 mg Q6H PRN PO PAIN Last administered on at 06:29; Admin Dose 4 MG; Start 09/12/16 at 09:30 Calcium/Vitamin D (Oyster Shell/ Vit-D (500/200)) 1 tab BID PO Last administered on 09/14/16at 09:57; Admin Dose 1 TAB; Start 09/12/16 at 14:00 BRYON AMOR MD Sep 14, 2016 14:44
[2016-09-14] MEDS: SOD CHLORIDE 0.9% 1,000 ML IV SCH (15:18)
[2016-09-14 20:15] VITALS: BP 120/70; PULSE 89; RESP 18
[2016-09-14] MEDS: METHYLNALTREXONE 12 MG/0.6 ML VIAL SC SCH (23:56)
[2016-09-15] MEDS: SOD CHLORIDE 0.9% 1,000 ML IV SCH ×2 (04:33→16:54)
[2016-09-15] MEDS: LACTULOSE 30ML CUP PO SCH ×3 (06:00→22:00)
[2016-09-15] MEDS: PANTOPRAZOLE (EC) 40 MG TAB PO SCH (06:11)
[2016-09-15] MEDS: LORAZEPAM 0.5 MG TAB PO SCH ×3 (06:11→18:05)
[2016-09-15 08:00] VITALS: BP 111/70; RESP 18
[2016-09-15] MEDS: MEGESTROL (40 MG/ML) 10ML CUP PO SCH ×2 (09:39→20:56)
[2016-09-15] MEDS: POLYETHYLENE GLYCOL 17 GM PACKET GTB SCH (09:39)
[2016-09-15] MEDS: MECLIZINE 25 MG TAB PO SCH ×3 (09:40→20:56)
[2016-09-15] MEDS: CALCIUM/VITAMIN D (500/200) TAB PO SCH ×2 (09:40→20:56)
[2016-09-15] MEDS: ESCITALOPRAM 10 MG TAB PO SCH (09:40)
[2016-09-15] MEDS: morphine (ER) 15 MG TAB PO SCH ×2 (09:40→20:59)
[2016-09-15] MEDS: BICALUTAMIDE 50 MG TAB PO SCH (09:42)
--- NOTE | 2016-09-15 11:23 | CONS ---
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 Irene Zhu and managed by Dr. Suzan Hernandez, referred to [facility] for weakness and dehydration. He has not seen Dr. Hernandez in awhile. 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 Continue therapeutic anticoagulation lovenox 1 mg/kg Q12 for DIC 2/2 malignancy, and also for history of left thrombosed calf vein in the setting of malignancy. Platelets stable for safe dosing now. Platelet count continues to rise to 81, confirming component of DIC due to malignancy improved with anticoagulation. - Few fragments on smear which can be consistent with DIC, iron panel suggests anemia of chronic inflammation; Vitamin B12/folate WNL - Retic count inappropriately low and bili normal which argues against significant hemolysis though LDH 2523 which may be related to tumor burden - Continue to follow counts, goal > 8, plt > 10 or if bleeding. s/p 1 unit pRBC # Metastatic prostate cancer, s/p radiation for cord compression per Dr. Zhu in the past - Per Dr. Zhu's prior note from 05/2016: The patient is a 60M who was hospitalized at [facility] for weakness. A work up revealed multiple lesions consistent with bone metastases. The patient does not recall his PSA, but feels that it was around 400 ng/mL. He was referred to [facility] and a prostate biopsy demonstrated [place] 9 disease in all cores. Per a medical report that the patient provides, there was a "positive bone scan and positive CT scan". He was started on androgen deprivation, and takes Bicalutamide daily. He also received an injection of Xjeva after which the pain in his lower back started. The patient was admitted to [facility] for severe bilateral lower extremity pain specifically radiating from his lower back to his thighs. An MRI of the L spine demonstrated at L3 - L4, enhancing epidural soft tissue along the posterior aspect of the L3 vertebral body, more pronounced left paracentrally with extension into the left neural foramen concerning for metastases disease. Associated moderate left foraminal stenosis and contact with the exiting left L3 nerve root. An MRI of the T spine demonstrated at T2-3, left paracentral/foraminal epidural enhancing soft tissue measuring 3-4 mm with associated moderate to marked left foraminal stenosis. Mild flattening of left lateral aspect of the spinal cord. He received radiation to L2-5 and T1-4 and but then re-presented the next month with recurrent pain. During the second hospitalization, epidural involvement at T12 with spinal canal narrowing, patient was evaluated by Dr. Mao in neurosurgery. No surgery recommended at this time, and received radiation treatment to T10-L1. Follow up with Dr. Hunter fell through and he has not been seen recently. Reportedly he was on monthly Lupron as of July but does not appear he has been on it recently." - New PSA now > 1000, pending testosterone level. - New CAP 09/09/16 shows extensive sclerotic metastatic disease, and increased bilateral iliac chain LAD. - Received Lupron 7.5 mg 09/13/16. Continue casodex. - s/p zometa 09/09/16 - I considered chemotherapy with taxotere if platelets continue to improve, however patient states that he does not want chemotherapy at this time. Would recommend palliative care consult to further discuss goals of care/possible comfort measures. # Thrombosed L calf vein - negative repeat dopplers, lovenox as above. Problems: Consultation Date/Type/Reason Admit Date/Time Sep 06, 2016 at 22:01 Initial Consult Date 09/08/16 Type of Consultation: Hematology/Oncology 24 HR Interval Summary Free Text/Dictation Patient feeling ok, denies pain at this moment. Per nurse, he is eating and taking his medications. I spoke to him about chemotherapy and he states that he does not want to pursue chemotherapy at this time. He had informed the nurses and I confirmed that he states that he wishes to go home as soon as possible and to focus on measures to reduce pain and make him comfortable. Exam/Review of Systems Vital Signs Vitals Vital Signs Date Time Temp Pulse Resp B/P Pulse Ox O2 Delivery O2 Flow Rate FiO2 09/15/16 08:00 97.7 18 111/70 98 Room Air 09/14/16 20:15 89 Intake and Output 09/14/16 09/14/16 09/15/16 14:59 22:59 06:59 Intake Total 250 ml 1270 ml Output Total 700 ml 1600 ml Balance -450 ml -330 ml Exam Constitutional: oriented Psych: no complaints Head: normocephalic Eyes: nl conjunctiva Neck: supple Respiratory: clear to auscultation Cardiovascular: regular rate and rhythm Gastrointestinal: non-tender, soft Musculoskeletal: nl extremities to inspection Results Result Diagram: 09/13/1643409/13/16434 Medications Medications Current Medications Sodium Chloride (NS) 1,000 ml @ 80 mls/hr [id number] IV Last administered on 04:33; Admin Dose 80 MLS/HR; Start 09/06/16 at 23:30 Bicalutamide (Casodex) 50 mg QAM PO Last administered on 09/15/16 09:42; Admin Dose 50 MG; Start 09/07/16 at 09:00 Docusate Sodium (Colace) 100 mg BID PRN PO CONSTIPATION; Start 09/07/16 at 00: 00 Escitalopram Oxalate (Lexapro) 5 mg DAILY PO Last administered on 09/15/16 09 :40; Admin Dose 5 MG; Start 09/07/16 at 09:00 Lactulose (Enulose) 20 gm Q8 PO Last administered on 09/14/16 21:06; Admin Dose 20 GM; Start 09/07/16 at 06:00 Lorazepam (Ativan) 0.5 mg Q6 PO Last administered on 09/15/16 06:11; Admin Dose 0.5 MG; Start 09/07/16 at 00:00 Meclizine HCl (Antivert) 25 mg TID PO Last administered on 09/15/16 09:40; Admin Dose 25 MG; Start 09/07/16 at 09:00 Megestrol Acetate (Megace Susp) 400 mg BID PO Last administered on 09/15/16 09:39; Admin Dose 400 MG; Start 09/07/16 at 09:00 Methylnaltrexone [place] (Relistor) 12 mg Q48H SC Last administered on 23:56; Admin Dose 12 MG; Start 09/07/16 at 00:00 Morphine Sulfate (Ms Contin (Er)) 15 mg Q12 PO Last administered on 09/15/16 09:40; Admin Dose 15 MG; Start 09/07/16 at 09:00 Ondansetron HCl (Zofran Tab) 4 mg Q6H PRN PO NAUSEA AND/OR VOMITING; Start at 00:00 Polyethylene Glycol (Miralax) 17 gm DAILY GTB Last administered on 09/15/16at 09:39; Admin Dose 17 GM; Start 09/07/16 at 09:00 Acetaminophen (Tylenol Tab) 500 mg Q4H PRN PO PAIN AND OR ELEVATED TEMP Last administered on 09/08/16 21:03; Admin Dose 500 MG; Start 09/07/16 at 21:30 Enoxaparin Sodium (Lovenox) 55 mg Q12H SC Last administered on 09/14/16at 23:57 ; Admin Dose 55 MG; Start 09/09/16 at 12:00 IV Flush (NS 10 ml) 10 ml PRN PRN IV IV PROTOCOL; Start 09/11/16 at 10:00 Hydromorphone HCl (Dilaudid) 4 mg Q6H PRN PO PAIN Last administered on 16:04; Admin Dose 4 MG; Start 09/12/16 at 09:30 Calcium/Vitamin D (Oyster Shell/ Vit-D (500/200)) 1 tab BID PO Last administered on 09/15/16 09:40; Admin Dose 1 TAB; Start 09/12/16 at 14:00 BRYON AMOR MD Sep 15, 2016 11:23
[2016-09-15 12:23] LABS: BASOPHILS % 0.2 % (0.0-2.0); EOSINOPHILS % 0.1 % (0.0-7.0); HEMATOCRIT 27.2 % (42.0-52.0); HEMOGLOBIN 9.1 g/dl (14.0-18.0); LYMPHOCYTES # 1.1 10^3/ul (0.8-2.9); LYMPHOCYTES % 20.7 % (15.0-51.0); MEAN CORPUSCULAR HEMOGLOBIN 27.9 pg (29.0-33.0); MEAN CORPUSCULAR HGB CONC 33.7 g/dl (32.0-37.0); MEAN PLATELET VOLUME 7.5 fl (7.4-10.4); MONOCYTE # 0.5 10^3/ul (0.3-0.9); MONOCYTES % 9.2 % (0.0-11.0); NEUTROPHIL # 3.8 10^3/ul (1.6-7.5); NEUTROPHILS % 69.8 % (39.0-77.0); RED BLOOD COUNT 3.27 10^6/ul (4.70-6.10); UNCORRECTED WBC 5.4 10^3/ul (4.8-10.8); WHITE BLOOD COUNT 5.4 10^3/ul (4.8-10.8)
[2016-09-15 12:26] LABS: ALBUMIN 2.3 g/dl (3.3-4.9); POTASSIUM 3.7 mmol/L (3.5-5.1)
[2016-09-15 12:28] LABS: BILIRUBIN,INDIRECT 0.2 mg/dl (0-1.1); BILIRUBIN,TOTAL 0.2 mg/dl (0.2-1.3); CONDITION 1; CREATININE 0.33 mg/dl (0.61-1.24); LH ANALYZER COMMENTS 1
[2016-09-15 12:29] LABS: ALBUMIN/GLOBULIN RATIO 0.79; CALCIUM 7.1 mg/dl (8.4-10.2); PLATELET COUNT 81 10^3/UL (140-440); TOTAL PROTEIN 5.2 g/dl (6.1-8.1)
[2016-09-15] MEDS: ENOXAPARIN 60 MG/0.6 ML SYG SC SCH (12:58)
--- NOTE | 2016-09-15 14:04 | PN ---
Date/Time of Note Date/Time of Note DATE: 09/15/16 TIME: 14:03 Assessment/Plan VTE Prophylaxis VTE Prophylaxis Intervention: other Lines/Catheters IV Catheter Type (from Nrsg): PICC Line Central line still needed: Yes Urinary Cath still in place: Yes Reason Cath still needed: skin wounds contaminated by urine Assessment/Plan Chief Complaint/Hosp Course 1) Hypotension - stable 2) Dehydration - IV fluids 3) Anemia - monitor H/H 4) Intractable pain - pain control 5) Prostate carcinoma - sp Radiation therapy by Dr Ghassan Hylton - oncology consult appreciated- Dr Silva 6) Thrombocytopenia - lovenox on hold Problems: Subjective 24 Hr Interval Summary Free Text/Dictation Patient has no complaints Exam/Review of Systems Vital Signs Vitals Vital Signs Date Time Temp Pulse Resp B/P Pulse Ox O2 Delivery O2 Flow Rate FiO2 09/15/16 08:00 97.7 18 111/70 98 Room Air 09/14/16 20:15 89 Intake and Output 09/14/16 09/14/16 09/15/16 15:00 23:00 07:00 Intake Total 250 ml 1270 ml Output Total 700 ml 1600 ml Balance -450 ml -330 ml Exam Constitutional: alert, well developed Neck: supple Respiratory: clear to auscultation Cardiovascular: regular rate and rhythm Gastrointestinal: non-tender, soft Extremities: normal pulses Results Result Diagram: 09/15/16 1155 09/15/16 1155 Results 24 hrs Laboratory Tests Test 09/15/16 11:55 Alanine Aminotransferase (ALT/SGPT) 33 Albumin 2.3 L Albumin/Globulin Ratio 0.79 Alkaline Phosphatase 705 H Anion Gap 11 Aspartate Amino Transf (AST/SGOT) 35 Basophils # 0.0 Basophils % 0.2 Blood Morphology Comment Blood Urea Nitrogen 5 L Calcium Level 7.1 L Carbon Dioxide Level 22 Chloride Level 106 Creatinine 0.33 L Direct Bilirubin 0.00 Eosinophils # 0.0 Eosinophils % 0.1 Globulin 2.90 Glucose Level 87 Hematocrit 27.2 L Hemoglobin 9.1 L Indirect Bilirubin 0.2 Lymphocytes # 1.1 Lymphocytes % 20.7 Mean Corpuscular Hemoglobin 27.9 L Mean Corpuscular Hemoglobin Concent 33.7 Mean Corpuscular Volume 83.0 Mean Platelet Volume 7.5 Monocytes # 0.5 Monocytes % 9.2 Neutrophils # 3.8 Neutrophils % 69.8 Nucleated Red Blood Cells # 0.0 Nucleated Red Blood Cells % 0.0 Platelet Count 81 #L Potassium Level 3.7 Red Blood Count 3.27 L Red Cell Distribution Width 19.0 H Sodium Level 135 Total Bilirubin 0.2 Total Protein 5.2 L White Blood Count 5.4 Medications Medications Current Medications Sodium Chloride (NS) 1,000 ml @ 80 mls/hr [id number] IV Last administered on 04:33; Admin Dose 80 MLS/HR; Start 09/06/16 at 23:30 Bicalutamide (Casodex) 50 mg QAM PO Last administered on 09/15/16 09:42; Admin Dose 50 MG; Start 09/07/16 at 09:00 Docusate Sodium (Colace) 100 mg BID PRN PO CONSTIPATION; Start 09/07/16 at 00: 00 Escitalopram Oxalate (Lexapro) 5 mg DAILY PO Last administered on 09/15/16 09 :40; Admin Dose 5 MG; Start 09/07/16 at 09:00 Lactulose (Enulose) 20 gm Q8 PO Last administered on 09/14/16 21:06; Admin Dose 20 GM; Start 09/07/16 at 06:00 Lorazepam (Ativan) 0.5 mg Q6 PO Last administered on 09/15/16 06:11; Admin Dose 0.5 MG; Start 09/07/16 at 00:00 Meclizine HCl (Antivert) 25 mg TID PO Last administered on 09/15/16 09:40; Admin Dose 25 MG; Start 09/07/16 at 09:00 Megestrol Acetate (Megace Susp) 400 mg BID PO Last administered on 09/15/16 09:39; Admin Dose 400 MG; Start 09/07/16 at 09:00 Methylnaltrexone [place] (Relistor) 12 mg Q48H SC Last administered on 23:56; Admin Dose 12 MG; Start 09/07/16 at 00:00 Morphine Sulfate (Ms Contin (Er)) 15 mg Q12 PO Last administered on 09/15/16 09:40; Admin Dose 15 MG; Start 09/07/16 at 09:00 Ondansetron HCl (Zofran Tab) 4 mg Q6H PRN PO NAUSEA AND/OR VOMITING; Start at 00:00 Polyethylene Glycol (Miralax) 17 gm DAILY GTB Last administered on 09/15/16 09:39; Admin Dose 17 GM; Start 09/07/16 at 09:00 Acetaminophen (Tylenol Tab) 500 mg Q4H PRN PO PAIN AND OR ELEVATED TEMP Last administered on 09/08/16 21:03; Admin Dose 500 MG; Start 09/07/16 at 21:30 Enoxaparin Sodium (Lovenox) 55 mg Q12H SC Last administered on 09/15/16at 12:58 ; Admin Dose 55 MG; Start 09/09/16 at 12:00 IV Flush (NS 10 ml) 10 ml PRN PRN IV IV PROTOCOL; Start 09/11/16 at 10:00 Hydromorphone HCl (Dilaudid) 4 mg Q6H PRN PO PAIN Last administered on 16:04; Admin Dose 4 MG; Start 09/12/16 at 09:30 Calcium/Vitamin D (Oyster Shell/ Vit-D (500/200)) 1 tab BID PO Last administered on 09/15/16 09:40; Admin Dose 1 TAB; Start 09/12/16 at 14:00 NASREEN DAMON Sep 15, 2016 14:04
[2016-09-15 20:00] VITALS: BP 127/67; PULSE 82; RESP 18
[2016-09-15] MEDS: HYDROmorphONE 2 MG TAB PO PRN (21:55)
[2016-09-15] MEDS ORDERED: HYDROmorphONE 2 MG TAB PO PRN (22:19)
[2016-09-16] MEDS: LORAZEPAM 0.5 MG TAB PO SCH ×4 (00:04→18:03)
[2016-09-16] MEDS: ENOXAPARIN 60 MG/0.6 ML SYG SC SCH ×2 (00:05→12:26)
[2016-09-16] MEDS: SOD CHLORIDE 0.9% 1,000 ML IV SCH ×3 (04:31→18:03)
[2016-09-16 05:54] LABS: ALBUMIN 2.3 g/dl (3.3-4.9)
[2016-09-16 05:55] LABS: POTASSIUM 3.6 mmol/L (3.5-5.1)
[2016-09-16 05:57] LABS: BILIRUBIN,INDIRECT 0.2 mg/dl (0-1.1); BILIRUBIN,TOTAL 0.2 mg/dl (0.2-1.3); CREATININE 0.37 mg/dl (0.61-1.24)
[2016-09-16 05:58] LABS: ALBUMIN/GLOBULIN RATIO 0.79; CALCIUM 7.2 mg/dl (8.4-10.2); TOTAL PROTEIN 5.2 g/dl (6.1-8.1)
[2016-09-16] MEDS: LACTULOSE 30ML CUP PO SCH ×3 (06:11→21:42)
[2016-09-16] MEDS: PANTOPRAZOLE (EC) 40 MG TAB PO SCH (06:11)
[2016-09-16 08:00] VITALS: BP 111/74; PULSE 89; RESP 18
[2016-09-16 08:03] LABS: BASOPHILS % 0.2 % (0.0-2.0); EOSINOPHILS % 0.1 % (0.0-7.0); HEMATOCRIT 28.2 % (42.0-52.0); HEMOGLOBIN 9.4 g/dl (14.0-18.0); LYMPHOCYTES # 1.2 10^3/ul (0.8-2.9); LYMPHOCYTES % 22.2 % (15.0-51.0); MEAN CORPUSCULAR HEMOGLOBIN 27.9 pg (29.0-33.0); MEAN CORPUSCULAR HGB CONC 33.4 g/dl (32.0-37.0); MEAN CORPUSCULAR VOLUME 83.5 fl (82.0-101.0); MEAN PLATELET VOLUME 7.2 fl (7.4-10.4); MONOCYTE # 0.5 10^3/ul (0.3-0.9); MONOCYTES % 9.5 % (0.0-11.0); NEUTROPHIL # 3.7 10^3/ul (1.6-7.5); RED BLOOD COUNT 3.38 10^6/ul (4.70-6.10); UNCORRECTED WBC 5.5 10^3/ul (4.8-10.8); WHITE BLOOD COUNT 5.5 10^3/ul (4.8-10.8)
[2016-09-16 08:09] LABS: CONDITION 1; LH ANALYZER COMMENTS 1; PLATELET COUNT 89 10^3/UL (140-440)
[2016-09-16] MEDS: MECLIZINE 25 MG TAB PO SCH ×2 (09:17→13:08)
[2016-09-16] MEDS: ESCITALOPRAM 10 MG TAB PO SCH (09:17)
[2016-09-16] MEDS: CALCIUM/VITAMIN D (500/200) TAB PO SCH ×2 (09:17→21:42)
[2016-09-16] MEDS: MEGESTROL (40 MG/ML) 10ML CUP PO SCH ×2 (09:18→21:41)
[2016-09-16] MEDS: POLYETHYLENE GLYCOL 17 GM PACKET GTB SCH (09:18)
[2016-09-16] MEDS: morphine (ER) 15 MG TAB PO SCH (09:18)
[2016-09-16] MEDS: BICALUTAMIDE 50 MG TAB PO SCH (09:26)
--- NOTE | 2016-09-16 12:09 | CONS ---
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 Irene Zhu and managed by Dr. Suzan Hernandez, referred to [facility] for weakness and dehydration. He has not seen Dr. Hernandez in awhile. 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 Continue therapeutic anticoagulation lovenox 1 mg/kg Q12 for DIC 2/2 malignancy, and also for history of left thrombosed calf vein in the setting of malignancy. Platelets stable for safe dosing now. Platelet count continues to rise to 89, confirming component of DIC due to malignancy improved with anticoagulation. - Few fragments on smear which can be consistent with DIC, iron panel suggests anemia of chronic inflammation; Vitamin B12/folate WNL - Retic count inappropriately low and bili normal which argues against significant hemolysis though LDH 2523 which may be related to tumor burden - Continue to follow counts, goal > 8, plt > 10 or if bleeding. s/p 1 unit pRBC # Metastatic prostate cancer, s/p radiation for cord compression per Dr. Zhu in the past - Per Dr. Zhu's prior note from 05/2016: The patient is a 60M who [place] [facility] A work up revealed multiple lesions consistent with bone metastases. The patient does not recall his PSA, but feels that it was around 400 ng/mL. He was referred to [facility] and a prostate biopsy demonstrated [place] 9 disease in all cores. Per a medical report that the patient provides, there was a "positive bone scan and positive CT scan". He was started on androgen deprivation, and takes Bicalutamide daily. He also received an injection of Xjeva after which the pain in his lower back started. The patient was admitted to [facility] for severe bilateral lower extremity pain specifically radiating from his lower back to his thighs. An MRI of the L spine demonstrated at L3 - L4, enhancing epidural soft tissue along the posterior aspect of the L3 vertebral body, more pronounced left paracentrally with extension into the left neural foramen concerning for metastases disease. Associated moderate left foraminal stenosis and contact with the exiting left L3 nerve root. An MRI of the T spine demonstrated at T2-3, left paracentral/foraminal epidural enhancing soft tissue measuring 3-4 mm with associated moderate to marked left foraminal stenosis. Mild flattening of left lateral aspect of the spinal cord. He received radiation to L2-5 and T1-4 and but then re-presented the next month with recurrent pain. During the second hospitalization, epidural involvement at T12 with spinal canal narrowing, patient was evaluated by Dr. Mao in neurosurgery. No surgery recommended at this time, and received radiation treatment to T10-L1. Follow up with Dr. Hunter fell through and he has not been seen recently. Reportedly he was on monthly Lupron as of July but does not appear he has been on it recently." - New PSA now > 1000, pending testosterone level. - New CAP 09/09/16 shows extensive sclerotic metastatic disease, and increased bilateral iliac chain LAD. - Received Lupron 7.5 mg 09/13/16. Continue casodex. - s/p zometa 09/09/16 - Chemotherapy with taxotere considered given extensive disease and progression on hormonal therapy, however patient has poor performance status with thrombocytopenia albeit improving and patient stated yesterday that he did not want chemotherapy, although it is unclear to me how much he understands and comprehends. Hospice eval had been ordered by hospitalist team, however I spoke with the patient's niece (phone number [phone]) who was confused about the situation. Would recommend palliative care consult with Dr. Ferguson to further discuss goals of care/possible comfort measures. # Thrombosed L calf vein - negative repeat dopplers, lovenox as above. Problems: Consultation Date/Type/Reason Admit Date/Time Sep 06, 2016 at 22:01 Initial Consult Date 09/08/16 Type of Consultation: Hematology/Oncology 24 HR Interval Summary Free Text/Dictation Patient quite somnolent, due to morphine and ativan that he received earlier today for pain (per nurse, he was crying). He currently states that he has minimal pain. He is eating only 20% of his meals and has not gotten out of bed or even turned in bed. Exam/Review of Systems Vital Signs Vitals Vital Signs Date Time Temp Pulse Resp B/P Pulse Ox O2 Delivery O2 Flow Rate FiO2 09/16/16 08:00 98.3 89 18 111/74 98 Nasal Cannula 09/15/16 21:00 2.0 Intake and Output 09/15/16 09/15/16 09/16/16 15:00 23:00 07:00 Intake Total 1640 ml 1260 ml Output Total 1900 ml 1850 ml Balance -260 ml -590 ml Exam Constitutional: oriented but quite frail Psych: no complaints Head: normocephalic Eyes: nl conjunctiva Neck: supple Respiratory: clear to auscultation Cardiovascular: regular rate and rhythm Gastrointestinal: non-tender, soft Musculoskeletal: nl extremities to inspection Results Result Diagram: 09/16/16 0735 09/16/16 0425 Results 24 hrs Laboratory Tests Test 09/16/16 04:25 09/16/16 07:35 Alanine Aminotransferase (ALT/SGPT) 33 Albumin 2.3 L Albumin/Globulin Ratio 0.79 Alkaline Phosphatase 799 H Anion Gap 11 Aspartate Amino Transf (AST/SGOT) 38 Blood Urea Nitrogen 4 L Calcium Level 7.2 L Carbon Dioxide Level 23 Chloride Level 108 Creatinine 0.37 L Direct Bilirubin 0.00 Globulin 2.90 Glucose Level 74 Indirect Bilirubin 0.2 Potassium Level 3.6 Sodium Level 138 Total Bilirubin 0.2 Total Protein 5.2 L Basophils # 0.0 Basophils % 0.2 Blood Morphology Comment Eosinophils # 0.0 Eosinophils % 0.1 Hematocrit 28.2 L Hemoglobin 9.4 L Lymphocytes # 1.2 Lymphocytes % 22.2 Mean Corpuscular Hemoglobin 27.9 L Mean Corpuscular Hemoglobin Concent 33.4 Mean Corpuscular Volume 83.5 Mean Platelet Volume 7.2 L Monocytes # 0.5 Monocytes % 9.5 Neutrophils # 3.7 Neutrophils % 68.0 Nucleated Red Blood Cells # 0.0 Nucleated Red Blood Cells % 0.0 Platelet Count 89 L Red Blood Count 3.38 L Red Cell Distribution Width 19.0 H White Blood Count 5.5 Medications Medications Current Medications Sodium Chloride (NS) 1,000 ml @ 80 mls/hr [id number] IV Last administered on at 04:31; Admin Dose 80 MLS/HR; Start 09/06/16 at 23:30 Bicalutamide (Casodex) 50 mg QAM PO Last administered on 09/16/16 09:26; Admin Dose 50 MG; Start 09/07/16 at 09:00 Docusate Sodium (Colace) 100 mg BID PRN PO CONSTIPATION; Start 09/07/16 at 00: 00 Escitalopram Oxalate (Lexapro) 5 mg DAILY PO Last administered on 09/16/16 09 :17; Admin Dose 5 MG; Start 09/07/16 at 09:00 Lactulose (Enulose) 20 gm Q8 PO Last administered on 09/16/16 06:11; Admin Dose 20 GM; Start 09/07/16 at 06:00 Lorazepam (Ativan) 0.5 mg Q6 PO Last administered on 09/16/16 06:11; Admin Dose 0.5 MG; Start 09/07/16 at 00:00 Meclizine HCl (Antivert) 25 mg TID PO Last administered on 09/16/16 09:17; Admin Dose 25 MG; Start 09/07/16 at 09:00 Megestrol Acetate (Megace Susp) 400 mg BID PO Last administered on 09/16/16 09:18; Admin Dose 400 MG; Start 09/07/16 at 09:00 Methylnaltrexone [place] (Relistor) 12 mg Q48H SC Last administered on 23:56; Admin Dose 12 MG; Start 09/07/16 at 00:00 Morphine Sulfate (Ms Contin (Er)) 15 mg Q12 PO Last administered on 09/16/16 09:18; Admin Dose 15 MG; Start 09/07/16 at 09:00 Ondansetron HCl (Zofran Tab) 4 mg Q6H PRN PO NAUSEA AND/OR VOMITING; Start at 00:00 Polyethylene Glycol (Miralax) 17 gm DAILY GTB Last administered on 09/16/16 09:18; Admin Dose 17 GM; Start 09/07/16 at 09:00 Acetaminophen (Tylenol Tab) 500 mg Q4H PRN PO PAIN AND OR ELEVATED TEMP Last administered on 09/08/16 21:03; Admin Dose 500 MG; Start 09/07/16 at 21:30 Enoxaparin Sodium (Lovenox) 55 mg Q12H SC Last administered on 09/16/16at 00:05 ; Admin Dose 55 MG; Start 09/09/16 at 12:00 IV Flush (NS 10 ml) 10 ml PRN PRN IV IV PROTOCOL; Start 09/11/16 at 10:00 Calcium/Vitamin D (Oyster Shell/ Vit-D (500/200)) 1 tab BID PO Last administered on 09/16/16at 09:17; Admin Dose 1 TAB; Start 09/12/16 at 14:00 Hydromorphone HCl (Dilaudid) 4 mg Q4H PRN PO PAIN; Start 09/15/16 at 22:19 TOBRYON MD Sep 16, 2016 12:09
--- NOTE | 2016-09-16 14:52 | PN ---
Date/Time of Note Date/Time of Note DATE: 09/16/16 TIME: 14:51 Assessment/Plan VTE Prophylaxis VTE Prophylaxis Intervention: other Lines/Catheters IV Catheter Type (from Nrsg): PICC Line Central line still needed: Yes Urinary Cath still in place: Yes Reason Cath still needed: skin wounds contaminated by urine Assessment/Plan Chief Complaint/Hosp Course 1) Hypotension - stable 2) Dehydration - IV fluids 3) Anemia - monitor H/H 4) Intractable pain - pain control 5) Prostate carcinoma - sp Radiation therapy by Dr Ghassan Hylton - oncology consult appreciated- Dr Silva 6) Thrombocytopenia - lovenox on hold Patient and family may be ready for hospice Problems: Subjective 24 Hr Interval Summary Free Text/Dictation Patient has no complaints Exam/Review of Systems Vital Signs Vitals Vital Signs Date Time Temp Pulse Resp B/P Pulse Ox O2 Delivery O2 Flow Rate FiO2 09/16/16 08:00 98.3 89 18 111/74 98 Nasal Cannula 09/15/16 21:00 2.0 Intake and Output 09/15/16 09/15/16 09/16/16 15:00 23:00 07:00 Intake Total 1640 ml 1260 ml Output Total 1900 ml 1850 ml Balance -260 ml -590 ml Exam Neck: supple Respiratory: diminished breath sounds Cardiovascular: regular rate and rhythm Gastrointestinal: non-tender, soft Extremities: normal pulses Results Result Diagram: 09/16/16 0735 09/16/16 0425 Results 24 hrs Laboratory Tests Test 09/16/16 04:25 09/16/16 07:35 Alanine Aminotransferase (ALT/SGPT) 33 Albumin 2.3 L Albumin/Globulin Ratio 0.79 Alkaline Phosphatase 799 H Anion Gap 11 Aspartate Amino Transf (AST/SGOT) 38 Blood Urea Nitrogen 4 L Calcium Level 7.2 L Carbon Dioxide Level 23 Chloride Level 108 Creatinine 0.37 L Direct Bilirubin 0.00 Globulin 2.90 Glucose Level 74 Indirect Bilirubin 0.2 Potassium Level 3.6 Sodium Level 138 Total Bilirubin 0.2 Total Protein 5.2 L Basophils # 0.0 Basophils % 0.2 Blood Morphology Comment Eosinophils # 0.0 Eosinophils % 0.1 Hematocrit 28.2 L Hemoglobin 9.4 L Lymphocytes # 1.2 Lymphocytes % 22.2 Mean Corpuscular Hemoglobin 27.9 L Mean Corpuscular Hemoglobin Concent 33.4 Mean Corpuscular Volume 83.5 Mean Platelet Volume 7.2 L Monocytes # 0.5 Monocytes % 9.5 Neutrophils # 3.7 Neutrophils % 68.0 Nucleated Red Blood Cells # 0.0 Nucleated Red Blood Cells % 0.0 Platelet Count 89 L Red Blood Count 3.38 L Red Cell Distribution Width 19.0 H White Blood Count 5.5 Medications Medications Current Medications Sodium Chloride (NS) 1,000 ml @ 80 mls/hr [id number] IV Last administered on 04:31; Admin Dose 80 MLS/HR; Start 09/06/16 at 23:30 Bicalutamide (Casodex) 50 mg QAM PO Last administered on 09/16/16 09:26; Admin Dose 50 MG; Start 09/07/16 at 09:00 Docusate Sodium (Colace) 100 mg BID PRN PO CONSTIPATION; Start 09/07/16 at 00: 00 Escitalopram Oxalate (Lexapro) 5 mg DAILY PO Last administered on 09/16/16 09 :17; Admin Dose 5 MG; Start 09/07/16 at 09:00 Lactulose (Enulose) 20 gm Q8 PO Last administered on 09/16/16 13:51; Admin Dose 20 GM; Start 09/07/16 at 06:00 Lorazepam (Ativan) 0.5 mg Q6 PO Last administered on 09/16/16 12:23; Admin Dose 0.5 MG; Start 09/07/16 at 00:00 Meclizine HCl (Antivert) 25 mg TID PO Last administered on 09/16/16 13:08; Admin Dose 25 MG; Start 09/07/16 at 09:00 Megestrol Acetate (Megace Susp) 400 mg BID PO Last administered on 09/16/16 09:18; Admin Dose 400 MG; Start 09/07/16 at 09:00 Methylnaltrexone [place] (Relistor) 12 mg Q48H SC Last administered on 23:56; Admin Dose 12 MG; Start 09/07/16 at 00:00 Morphine Sulfate (Ms Contin (Er)) 15 mg Q12 PO Last administered on 09/16/16 09:18; Admin Dose 15 MG; Start 09/07/16 at 09:00 Ondansetron HCl (Zofran Tab) 4 mg Q6H PRN PO NAUSEA AND/OR VOMITING; Start at 00:00 Polyethylene Glycol (Miralax) 17 gm DAILY GTB Last administered on 09/16/16at 09:18; Admin Dose 17 GM; Start 09/07/16 at 09:00 Acetaminophen (Tylenol Tab) 500 mg Q4H PRN PO PAIN AND OR ELEVATED TEMP Last administered on 09/08/16at 21:03; Admin Dose 500 MG; Start 09/07/16 at 21:30 Enoxaparin Sodium (Lovenox) 55 mg Q12H SC Last administered on 09/16/16at 12:26 ; Admin Dose 55 MG; Start 09/09/16 at 12:00 IV Flush (NS 10 ml) 10 ml PRN PRN IV IV PROTOCOL; Start 09/11/16 at 10:00 Calcium/Vitamin D (Oyster Shell/ Vit-D (500/200)) 1 tab BID PO Last administered on 09/16/16at 09:17; Admin Dose 1 TAB; Start 09/12/16 at 14:00 Hydromorphone HCl (Dilaudid) 4 mg Q4H PRN PO PAIN; Start 09/15/16 at 22:19 NASREEN DAMON Sep 16, 2016 14:52
[2016-09-16] MEDS: KETOROLAC 30 MG INJ IV SCH (19:33)
[2016-09-16] MEDS: METHADONE (1 MG/1 ML PO SYG) PO SCH (19:43)
[2016-09-16 20:00] VITALS: BP 121/81; PULSE 87; RESP 16
[2016-09-16] MEDS: HYDROmorphONE 2 MG TAB PO PRN (21:50)
[2016-09-17] MEDS: METHADONE (1 MG/1 ML PO SYG) PO SCH ×4 (00:57→17:44)
[2016-09-17] MEDS: KETOROLAC 30 MG INJ IV SCH ×4 (01:00→18:52)
[2016-09-17] MEDS: ENOXAPARIN 60 MG/0.6 ML SYG SC SCH ×2 (01:04→13:05)
[2016-09-17] MEDS: METHYLNALTREXONE 12 MG/0.6 ML VIAL SC SCH (01:04)
[2016-09-17] MEDS: HYDROmorphONE 2 MG TAB PO PRN ×3 (01:50→22:49)
[2016-09-17 05:32] LABS: BASOPHILS % 0.3 % (0.0-2.0); EOSINOPHILS % 0.1 % (0.0-7.0); HEMATOCRIT 24.5 % (42.0-52.0); HEMOGLOBIN 8.3 g/dl (14.0-18.0); LYMPHOCYTES # 0.7 10^3/ul (0.8-2.9); LYMPHOCYTES % 15.2 % (15.0-51.0); MEAN CORPUSCULAR HEMOGLOBIN 28.2 pg (29.0-33.0); MEAN CORPUSCULAR HGB CONC 33.9 g/dl (32.0-37.0); MEAN CORPUSCULAR VOLUME 83.1 fl (82.0-101.0); MEAN PLATELET VOLUME 7.5 fl (7.4-10.4); MONOCYTE # 0.3 10^3/ul (0.3-0.9); MONOCYTES % 6.9 % (0.0-11.0); NEUTROPHIL # 3.5 10^3/ul (1.6-7.5); NEUTROPHILS % 77.5 % (39.0-77.0); PLATELET COUNT 90 10^3/UL (140-440); RED BLOOD COUNT 2.95 10^6/ul (4.70-6.10); RED CELL DISTRIBUTION WIDTH 18.8 % (11.5-14.5); UNCORRECTED WBC 4.6 10^3/ul (4.8-10.8); WHITE BLOOD COUNT 4.6 10^3/ul (4.8-10.8)
[2016-09-17 05:56] LABS: CONDITION 1; LH ANALYZER COMMENTS 1
[2016-09-17] MEDS: LACTULOSE 30ML CUP PO SCH ×3 (06:00→22:00)
[2016-09-17] MEDS: PANTOPRAZOLE (EC) 40 MG TAB PO SCH (06:08)
[2016-09-17] MEDS: SOD CHLORIDE 0.9% 1,000 ML IV SCH ×3 (06:21→22:45)
[2016-09-17 06:31] LABS: ALBUMIN 2.3 g/dl (3.3-4.9)
[2016-09-17 06:32] LABS: POTASSIUM 3.5 mmol/L (3.5-5.1)
[2016-09-17 06:34] LABS: ALBUMIN/GLOBULIN RATIO 0.79; BILIRUBIN,INDIRECT 0.3 mg/dl (0-1.1); BILIRUBIN,TOTAL 0.3 mg/dl (0.2-1.3); CREATININE 0.3 mg/dl (0.61-1.24); TOTAL PROTEIN 5.2 g/dl (6.1-8.1)
[2016-09-17 06:35] LABS: CALCIUM 7.1 mg/dl (8.4-10.2)
[2016-09-17 08:21] VITALS: BP 131/71; PULSE 91; RESP 20
[2016-09-17] MEDS: CALCIUM/VITAMIN D (500/200) TAB PO SCH ×2 (08:53→22:45)
[2016-09-17] MEDS: POLYETHYLENE GLYCOL 17 GM PACKET GTB SCH (08:53)
[2016-09-17] MEDS: MEGESTROL (40 MG/ML) 10ML CUP PO SCH ×2 (08:54→22:46)
[2016-09-17] MEDS: ESCITALOPRAM 10 MG TAB PO SCH (08:54)
[2016-09-17] MEDS: BICALUTAMIDE 50 MG TAB PO SCH (09:20)
--- NOTE | 2016-09-17 10:09 | PN ---
Date/Time of Note Date/Time of Note DATE: 09/17/16 TIME: 10:08 Assessment/Plan VTE Prophylaxis VTE Prophylaxis Intervention: LMWH Lines/Catheters IV Catheter Type (from Nrsg): PICC Line Central line still needed: Yes Urinary Cath still in place: Yes Reason Cath still needed: skin wounds contaminated by urine Assessment/Plan Chief Complaint/Hosp Course 1) Hypotension - stable 2) Dehydration - IV fluids 3) Anemia - monitor H/H 4) Intractable pain - pain control 5) Prostate carcinoma - sp Radiation therapy by Dr Ghassan Hylton - oncology consult appreciated- Dr Silva 6) Thrombocytopenia - lovenox on hold Patient and family may be ready for hospice Problems: Subjective 24 Hr Interval Summary Free Text/Dictation Patient has no complaints Exam/Review of Systems Vital Signs Vitals Vital Signs Date Time Temp Pulse Resp B/P Pulse Ox O2 Delivery O2 Flow Rate FiO2 09/17/16 08:21 98.0 91 20 131/71 98 Room Air 09/15/16 21:00 2.0 Intake and Output 09/16/16 09/16/16 09/17/16 15:00 23:00 07:00 Intake Total 1360 ml 1280 ml Output Total 700 ml 1100 ml Balance 660 ml 180 ml Exam Constitutional: well developed Head: atraumatic, normocephalic Neck: supple Respiratory: diminished breath sounds Cardiovascular: regular rate and rhythm Gastrointestinal: non-tender, soft Extremities: normal pulses Results Result Diagram: 09/17/16 0430 09/17/16 0430 Results 24 hrs Laboratory Tests Test 09/17/16 04:30 Alanine Aminotransferase (ALT/SGPT) 30 Albumin 2.3 L Albumin/Globulin Ratio 0.79 Alkaline Phosphatase 842 H Anion Gap 13 Aspartate Amino Transf (AST/SGOT) 42 Basophils # 0.0 Basophils % 0.3 Blood Morphology Comment Blood Urea Nitrogen 5 L Calcium Level 7.1 L Carbon Dioxide Level 22 Chloride Level 106 Creatinine 0.30 L Direct Bilirubin 0.00 Eosinophils # 0.0 Eosinophils % 0.1 Globulin 2.90 Glucose Level 79 Hematocrit 24.5 L Hemoglobin 8.3 L Indirect Bilirubin 0.3 Lymphocytes # 0.7 L Lymphocytes % 15.2 Mean Corpuscular Hemoglobin 28.2 L Mean Corpuscular Hemoglobin Concent 33.9 Mean Corpuscular Volume 83.1 Mean Platelet Volume 7.5 Monocytes # 0.3 Monocytes % 6.9 Neutrophils # 3.5 Neutrophils % 77.5 H Nucleated Red Blood Cells # 0.0 Nucleated Red Blood Cells % 0.0 Platelet Count 90 L Potassium Level 3.5 Red Blood Count 2.95 L Red Cell Distribution Width 18.8 H Sodium Level 137 Total Bilirubin 0.3 Total Protein 5.2 L White Blood Count 4.6 L Medications Medications Current Medications Sodium Chloride (NS) 1,000 ml @ 80 mls/hr [id number] IV Last administered on 06:21; Admin Dose 80 MLS/HR; Start 09/06/16 at 23:30 Bicalutamide (Casodex) 50 mg QAM PO Last administered on 09/17/16 09:20; Admin Dose 50 MG; Start 09/07/16 at 09:00 Docusate Sodium (Colace) 100 mg BID PRN PO CONSTIPATION; Start 09/07/16 at 00: 00 Escitalopram Oxalate (Lexapro) 5 mg DAILY PO Last administered on 09/17/16 08 :54; Admin Dose 5 MG; Start 09/07/16 at 09:00 Lactulose (Enulose) 20 gm Q8 PO Last administered on 09/16/16 21:42; Admin Dose 20 GM; Start 09/07/16 at 06:00 Megestrol Acetate (Megace Susp) 400 mg BID PO Last administered on 09/17/16 08:54; Admin Dose 400 MG; Start 09/07/16 at 09:00 Methylnaltrexone [place] (Relistor) 12 mg Q48H SC Last administered on at 01:04; Admin Dose 12 MG; Start 09/07/16 at 00:00 Ondansetron HCl (Zofran Tab) 4 mg Q6H PRN PO NAUSEA AND/OR VOMITING; Start at 00:00 Polyethylene Glycol (Miralax) 17 gm DAILY GTB Last administered on 09/16/16 09:18; Admin Dose 17 GM; Start 09/07/16 at 09:00 Acetaminophen (Tylenol Tab) 500 mg Q4H PRN PO PAIN AND OR ELEVATED TEMP Last administered on 09/08/16 21:03; Admin Dose 500 MG; Start 09/07/16 at 21:30 Enoxaparin Sodium (Lovenox) 55 mg Q12H SC Last administered on 09/17/16at 01:04 ; Admin Dose 55 MG; Start 09/09/16 at 12:00 IV Flush (NS 10 ml) 10 ml PRN PRN IV IV PROTOCOL; Start 09/11/16 at 10:00 Calcium/Vitamin D ([place]yster [place]/ Vit-D (500/200)) 1 tab BID PO Last administered on 09/17/16at 08:53; Admin Dose 1 TAB; Start 09/12/16 at 14:00 Hydromorphone HCl (Dilaudid) 2 mg Q4H PRN PO PAIN Last administered on at 09:52; Admin Dose 2 MG; Start 09/16/16 at 22:19 Ketorolac Tromethamine (Toradol) 30 mg Q6H IV Last administered on 09/17/16at 06:09; Admin Dose 30 MG; Start 09/16/16 at 18:30; Stop 09/19/16 at 18:29 Methadone HCl (Methadone Liq (Ped)) 1 mg Q6 PO Last administered on 09/17/16at 06:10; Admin Dose 1 MG; Start 09/16/16 at 19:00 NASREEN DAMON Sep 17, 2016 10:09
--- NOTE | 2016-09-17 11:24 | PSY ---
Date/Time of Note Date/Time of Note DATE: 09/17/16 TIME: 11:09 Psychiatric Subjective Eval Consent Pt consented to telemedicine: Yes Subjective Evaluation Patient location: inpatient Chief Complaint: sent by pmd for low bp, more confused than normal Reason for consult: Suicidal ideation History of present illness Patient is a 60 year old male with metastatic prostate cancer who was admitted for increased confusion. He has been admitted to the medical floor. A hospice consult has been requested. Patient made a comment to nursing staff last night about wanting to . A sitter was placed and a psychiatric consult was requested. Patient speaks Bahraini and a Bahraini speaking nurse was utilized to communicate with him. Patient is aware that he has cancer. He denies that he is in any pain. When asked about suicide, he denies these thoughts. However, he later states "not now, I wouldn't do that because it would hurt my family." However, throughout the interview patient was labile - tears, sobbing. He then would gather himself together. When asked why he was crying, he replied he missed his parents. When asked if he was in pain, he denies. Patient admits to feeling sad. This is focussed around missing his parents. Past psychiatric history Past history of depression. Hospitalization: no Family History Unremarkable Medical history Problems Medical Problems: (1) Abdominal pain Status: Acute (2) Anemia Status: Acute (3) Anemia Status: Acute (4) Back pain Status: Acute (5) Dehydration Status: Acute (6) Hypotension Status: Acute (7) Intractable pain Status: Acute (8) Leukopenia Status: Acute (9) Pneumonia Status: Acute (10) Proctitis Status: Acute (11) Prostate cancer metastatic to bone Status: Acute (12) Prostate carcinoma Status: Acute Allergies: Coded Allergies: No Known Allergy (Unverified , 09/06/16) Substance Abuse Substance use: No known substance abuse Social History Marital status: DPA/Conservatorship: No Psychiatric Objective Eval Mental Status Examination: Appearance: Groomed Eye Contact: Poor Psychomotor Activity: Agitated Behavior: Cooperative Speech: Soft AFFECT: [place] Mood: Depressed Though Process: Perseverative Thought Content: Normal Suicidal: No Homicidal: No On 72 hour hold: No Orientation: x3 Cognition: Alert Insight: Impared Judgement: Impared Laboratory Results Laboratory Tests Test 09/15/16 11:55 09/16/16 04:25 09/16/16 07:35 09/17/16 04:30 Alanine Aminotransferase (ALT/SGPT) 33IU/L 33IU/L 30IU/L Albumin 2.3g/dl 2.3g/dl 2.3g/dl Albumin/Globulin Ratio 0.79 0.79 0.79 Alkaline Phosphatase 705IU/L 799IU/L 842IU/L Anion Gap 11 11 13 Aspartate Amino Transf (AST/SGOT) 35IU/L 38IU/L 42IU/L Basophils # 0.010^3/ul 0.010^3/ul 0.010^3/ul Basophils % 0.2% 0.2% 0.3% Blood Morphology Comment Blood Urea Nitrogen 5mg/dl 4mg/dl 5mg/dl Calcium Level 7.1mg/dl 7.2mg/dl 7.1mg/dl Carbon Dioxide Level 22mmol/L 23mmol/L 22mmol/L Chloride Level 106mmol/L 108mmol/L 106mmol/L Creatinine 0.33mg/dl 0.37mg/dl 0.30mg/dl Direct Bilirubin 0.00mg/dl 0.00mg/dl 0.00mg/dl Eosinophils # 0.010^3/ul 0.010^3/ul 0.010^3/ul Eosinophils % 0.1% 0.1% 0.1% Globulin 2.90g/dl 2.90g/dl 2.90g/dl Glucose Level 87mg/dl 74mg/dl 79mg/dl Hematocrit 27.2% 28.2% 24.5% Hemoglobin 9.1g/dl 9.4g/dl 8.3g/dl Indirect Bilirubin 0.2mg/dl 0.2mg/dl 0.3mg/dl Lymphocytes # 1.110^3/ul 1.210^3/ul 0.710^3/ul Lymphocytes % 20.7% 22.2% 15.2% Mean Corpuscular Hemoglobin 27.9pg 27.9pg 28.2pg Mean Corpuscular Hemoglobin Concent 33.7g/dl 33.4g/dl 33.9g/dl Mean Corpuscular Volume 83.0fl 83.5fl 83.1fl Mean Platelet Volume 7.5fl 7.2fl 7.5fl Monocytes # 0.510^3/ul 0.510^3/ul 0.310^3/ul Monocytes % 9.2% 9.5% 6.9% Neutrophils # 3.810^3/ul 3.710^3/ul 3.510^3/ul Neutrophils % 69.8% 68.0% 77.5% Nucleated Red Blood Cells # 0.010^3/ul 0.010^3/ul 0.010^3/ul Nucleated Red Blood Cells % 0.0/100WBC 0.0/100WBC 0.0/100WBC Platelet Count 8110^3/UL 8910^3/UL 9010^3/UL Potassium Level 3.7mmol/L 3.6mmol/L 3.5mmol/L Red Blood Count 3.2710^6/ul 3.3810^6/ul 2.9510^6/ul Red Cell Distribution Width 19.0% 19.0% 18.8% Sodium Level 135mmol/L 138mmol/L 137mmol/L Total Bilirubin 0.2mg/dl 0.2mg/dl 0.3mg/dl Total Protein 5.2g/dl 5.2g/dl 5.2g/dl White Blood Count 5.410^3/ul 5.510^3/ul 4.610^3/ul Assessment and Plan Assessment/Diagnosis [place]: Unspecified Depressive Disorder Recommendation/Plan Medication Management Could consider increasing his lexapro to 10mg. However, I am not convinced that his mood lability is depression. It could be; however, it had an off/off phenomenon and I can't help but wonder to what extent his medical illness, pain medications and sedatives may be playing a role in his symptom presentation. Note that a slow reduction of pain medications and benzodiazepines was recommended. Might want to observe for a day or two and see if this lability changes with the change in pain medications/sedatives. Follow-up/Disposition Sitter recommendation - patient denied suicidal ideation and intent to me. He could have made the statement meaning that he is ready for given his metastatic cancer. He reports that he would not harm himself because of his family. He does not remember making the comment last night and therefore cannot explain what he was meaning. It does not appear that he needs a sitter at this time. However, if he should continue to verbalize thoughts of and dying and it is suspicious for intent, recommend re-starting sitter. TONEY GONZALEZ Sep 17, 2016 11:24
[2016-09-17 20:28] VITALS: BP 106/61; PULSE 91; RESP 20
[2016-09-17] MEDS: DOCUSATE SODIUM 100 MG CAP PO PRN (22:45)
[2016-09-18] MEDS: KETOROLAC 30 MG INJ IV SCH ×4 (00:51→17:55)
[2016-09-18] MEDS: METHADONE (1 MG/1 ML PO SYG) PO SCH ×4 (00:51→17:55)
[2016-09-18] MEDS: ENOXAPARIN 60 MG/0.6 ML SYG SC SCH ×2 (00:53→12:36)
[2016-09-18 05:32] LABS: INR 1.26; PROTIME 15.9 Sec (12.2-14.2); PT RATIO 1.2
[2016-09-18 05:33] LABS: PARTIAL THROMBOPLASTIN TIME 47.4 Sec (25.0-35.0)
[2016-09-18 05:34] LABS: THROMBIN TIME 15.8 SEC (13.8-19.1)
[2016-09-18 05:39] LABS: ALBUMIN 2.3 g/dl (3.3-4.9)
[2016-09-18 05:40] LABS: POTASSIUM 3.5 mmol/L (3.5-5.1)
[2016-09-18] MEDS: LACTULOSE 30ML CUP PO SCH ×2 (05:40→14:00)
[2016-09-18 05:42] LABS: ALBUMIN/GLOBULIN RATIO 0.79; BILIRUBIN,INDIRECT 0.3 mg/dl (0-1.1); BILIRUBIN,TOTAL 0.3 mg/dl (0.2-1.3); CREATININE 0.34 mg/dl (0.61-1.24); TOTAL PROTEIN 5.2 g/dl (6.1-8.1)
[2016-09-18] MEDS: PANTOPRAZOLE (EC) 40 MG TAB PO SCH (05:42)
[2016-09-18 06:13] LABS: D-DIMER > 10000.00 ng/ml (<460)
[2016-09-18 06:40] LABS: BASOPHILS % 0.4 % (0.0-2.0); EOSINOPHILS % 0.2 % (0.0-7.0); HEMATOCRIT 24.3 % (42.0-52.0); HEMOGLOBIN 8.2 g/dl (14.0-18.0); MEAN CORPUSCULAR HEMOGLOBIN 28.1 pg (29.0-33.0); MEAN CORPUSCULAR HGB CONC 33.7 g/dl (32.0-37.0); MEAN CORPUSCULAR VOLUME 83.3 fl (82.0-101.0); MEAN PLATELET VOLUME 7.7 fl (7.4-10.4); MONOCYTE # 0.4 10^3/ul (0.3-0.9); MONOCYTES % 10.3 % (0.0-11.0); NEUTROPHIL # 2.1 10^3/ul (1.6-7.5); NEUTROPHILS % 61.1 % (39.0-77.0); PLATELET COUNT 90 10^3/UL (140-440); RED BLOOD COUNT 2.91 10^6/ul (4.70-6.10); RED CELL DISTRIBUTION WIDTH 18.7 % (11.5-14.5); UNCORRECTED WBC 3.4 10^3/ul (4.8-10.8); WHITE BLOOD COUNT 3.4 10^3/ul (4.8-10.8)
[2016-09-18 06:44] LABS: PLATELET COUNT 90 10^3/UL (140-440)
[2016-09-18 07:03] LABS: CONDITION 1; LH ANALYZER COMMENTS 1
[2016-09-18 07:42] VITALS: BP 112/73; RESP 16
[2016-09-18 08:00] VITALS: BP 112/73; RESP 18
[2016-09-18 08:06] LABS: FIBRIN SPLIT PRODUCT >10 and <40 ug/ml (<10)
[2016-09-18] MEDS: POLYETHYLENE GLYCOL 17 GM PACKET GTB SCH (09:00)
[2016-09-18] MEDS: CALCIUM/VITAMIN D (500/200) TAB PO SCH ×2 (09:03→21:34)
[2016-09-18] MEDS: ESCITALOPRAM 10 MG TAB PO SCH (09:04)
[2016-09-18] MEDS: MEGESTROL (40 MG/ML) 10ML CUP PO SCH ×2 (09:04→21:34)
[2016-09-18] MEDS: BICALUTAMIDE 50 MG TAB PO SCH (09:05)
[2016-09-18] MEDS: SOD CHLORIDE 0.9% 1,000 ML IV SCH ×2 (11:50→23:06)
--- NOTE | 2016-09-18 12:47 | PN ---
Date/Time of Note Date/Time of Note DATE: 09/18/16 TIME: 12:46 Assessment/Plan VTE Prophylaxis VTE Prophylaxis Intervention: other Lines/Catheters IV Catheter Type (from Nrsg): PICC Line Central line still needed: Yes Urinary Cath still in place: Yes Reason Cath still needed: skin wounds contaminated by urine Assessment/Plan Chief Complaint/Hosp Course 1) Hypotension - stable 2) Dehydration - IV fluids 3) Anemia - monitor H/H 4) Intractable pain - pain control 5) Prostate carcinoma - sp Radiation therapy by Dr Ghassan Hylton - oncology consult appreciated- Dr Silva 6) Thrombocytopenia - lovenox on hold Patient and family may be ready for hospice Problems: Subjective 24 Hr Interval Summary Free Text/Dictation Patient has no complaints Exam/Review of Systems Vital Signs Vitals Vital Signs Date Time Temp Pulse Resp B/P Pulse Ox O2 Delivery O2 Flow Rate FiO2 09/18/16 08:00 98.3 18 112/73 98 Room Air 09/18/16 07:42 91 09/15/16 21:00 2.0 Intake and Output 09/17/16 09/17/16 09/18/16 15:00 23:00 07:00 Intake Total 1780 ml 800 ml Output Total 1100 ml 1300 ml Balance 680 ml -500 ml Exam Constitutional: well developed Head: atraumatic, normocephalic Neck: supple Respiratory: clear to auscultation Cardiovascular: regular rate and rhythm Gastrointestinal: non-tender, soft Results Result Diagram: 09/18/16 0435 09/18/16 0435 Results 24 hrs Laboratory Tests Test 09/18/16 04:35 09/18/16 12:04 Activated Partial Thromboplast Time 47.4 H Alanine Aminotransferase (ALT/SGPT) 29 Albumin 2.3 L Albumin/Globulin Ratio 0.79 Alkaline Phosphatase 1009 H Anion Gap 11 Aspartate Amino Transf (AST/SGOT) 60 H Basophils # 0.0 Basophils % 0.4 Blood Morphology Comment Blood Urea Nitrogen 5 L Calcium Level 7.0 L Carbon Dioxide Level 23 Chloride Level 108 Creatinine 0.34 L D-Dimer > 63623.00 H Direct Bilirubin 0.00 Eosinophils # 0.0 Eosinophils % 0.2 Fibrinogen 468.0 H Globulin 2.90 Glucose Level 77 Hematocrit 24.3 L Hemoglobin 8.2 L INR International Normalized Ratio 1.26 Indirect Bilirubin 0.3 Lymphocytes # 1.0 Lymphocytes % 28.0 Mean Corpuscular Hemoglobin 28.1 L Mean Corpuscular Hemoglobin Concent 33.7 Mean Corpuscular Volume 83.3 Mean Platelet Volume 7.7 Monocytes # 0.4 Monocytes % 10.3 Neutrophils # 2.1 Neutrophils % 61.1 Nucleated Red Blood Cells # 0.0 Nucleated Red Blood Cells % 0.0 Plasma Fibrin Degradation Products >10 and <40 H Platelet Count 90 #L Potassium Level 3.5 Prothrombin Time 15.9 H Prothrombin Time Ratio 1.2 Red Blood Count 2.91 L Red Cell Distribution Width 18.7 H Sodium Level 138 Thrombin Time 15.8 Total Bilirubin 0.3 Total Protein 5.2 L White Blood Count 3.4 #L Lab Scanned Report REFERENCE LAB Medications Medications Current Medications Sodium Chloride (NS) 1,000 ml @ 80 mls/hr [id number] IV Last administered on 11:50; Admin Dose 80 MLS/HR; Start 09/06/16 at 23:30 Bicalutamide (Casodex) 50 mg QAM PO Last administered on 09/18/16 09:05; Admin Dose 50 MG; Start 09/07/16 at 09:00 Docusate Sodium (Colace) 100 mg BID PRN PO CONSTIPATION Last administered on at 22:45; Admin Dose 100 MG; Start 09/07/16 at 00:00 Escitalopram Oxalate (Lexapro) 5 mg DAILY PO Last administered on 09/18/16 09: 04; Admin Dose 5 MG; Start 09/07/16 at 09:00 Lactulose (Enulose) 20 gm Q8 PO Last administered on 09/18/16 05:40; Admin Dose 20 GM; Start 09/07/16 at 06:00 Megestrol Acetate (Megace Susp) 400 mg BID PO Last administered on 09/18/16 09: 04; Admin Dose 400 MG; Start 09/07/16 at 09:00 Methylnaltrexone [place] (Relistor) 12 mg Q48H SC Last administered on at 01:04; Admin Dose 12 MG; Start 09/07/16 at 00:00 Ondansetron HCl (Zofran Tab) 4 mg Q6H PRN PO NAUSEA AND/OR VOMITING; Start at 00:00 Polyethylene Glycol (Miralax) 17 gm DAILY GTB Last administered on 09/16/16 09:18; Admin Dose 17 GM; Start 09/07/16 at 09:00 Acetaminophen (Tylenol Tab) 500 mg Q4H PRN PO PAIN AND OR ELEVATED TEMP Last administered on 09/08/16at 21:03; Admin Dose 500 MG; Start 09/07/16 at 21:30 Enoxaparin Sodium (Lovenox) 55 mg Q12H SC Last administered on 09/18/16 12:36; Admin Dose 55 MG; Start 09/09/16 at 12:00 IV Flush (NS 10 ml) 10 ml PRN PRN IV IV PROTOCOL; Start 09/11/16 at 10:00 Calcium/Vitamin D (Oyster Shell/ Vit-D (500/200)) 1 tab BID PO Last administered on 09/18/16 09:03; Admin Dose 1 TAB; Start 09/12/16 at 14:00 Hydromorphone HCl (Dilaudid) 2 mg Q4H PRN PO PAIN Last administered on at 22:49; Admin Dose 2 MG; Start 09/16/16 at 22:19 Ketorolac Tromethamine (Toradol) 30 mg Q6H IV Last administered on 09/18/16 12: 36; Admin Dose 30 MG; Start 09/16/16 at 18:30; Stop 09/19/16 at 18:29 Methadone HCl (Methadone Liq (Ped)) 1 mg Q6 PO Last administered on 09/18/16 12 :36; Admin Dose 1 MG; Start 09/16/16 at 19:00 NASREEN DAMON Sep 18, 2016 12:47
[2016-09-18 19:51] VITALS: BP 111/67; RESP 20
[2016-09-19] VITALS (12 sets, daily range): BP systolic 104–128; BP diastolic 54–77; PULSE 71–92; RESP 16–22; Ht 167.6 cm; Wt 53.1 kg
[2016-09-19] MEDS: METHYLNALTREXONE 12 MG/0.6 ML VIAL SC SCH
[2016-09-19] MEDS: KETOROLAC 30 MG INJ IV SCH ×3 (00:42→12:30)
[2016-09-19] MEDS: ENOXAPARIN 60 MG/0.6 ML SYG SC SCH ×2 (00:45→12:00)
[2016-09-19] MEDS: METHADONE (1 MG/1 ML PO SYG) PO SCH ×4 (00:45→17:48)
[2016-09-19] MEDS: ONDANSETRON 4 MG TAB PO PRN (05:30)
[2016-09-19 06:06] LABS: HEMATOCRIT 18.3 % (42.0-52.0); MEAN CORPUSCULAR HEMOGLOBIN 28.4 pg (29.0-33.0); MEAN CORPUSCULAR HGB CONC 33.5 g/dl (32.0-37.0); MEAN CORPUSCULAR VOLUME 84.7 fl (82.0-101.0); MEAN PLATELET VOLUME 7.5 fl (7.4-10.4); PLATELET COUNT 78 10^3/UL (140-440); RED BLOOD COUNT 2.16 10^6/ul (4.70-6.10); RED CELL DISTRIBUTION WIDTH 18.9 % (11.5-14.5); UNCORRECTED WBC 2.4 10^3/ul (4.8-10.8); WHITE BLOOD COUNT 2.4 10^3/ul (4.8-10.8)
[2016-09-19 06:19] LABS: CONDITION 1; HEMOGLOBIN 6.1 g/dl (14.0-18.0); LH ANALYZER COMMENTS 1
[2016-09-19 07:46] LABS: ALBUMIN 2.3 g/dl (3.3-4.9)
[2016-09-19 07:47] LABS: POTASSIUM 3.1 mmol/L (3.5-5.1)
[2016-09-19 07:49] LABS: BILIRUBIN,INDIRECT 0.4 mg/dl (0-1.1); BILIRUBIN,TOTAL 0.4 mg/dl (0.2-1.3); CREATININE 0.31 mg/dl (0.61-1.24)
[2016-09-19 07:50] LABS: ALBUMIN/GLOBULIN RATIO 0.76; CALCIUM 7.1 mg/dl (8.4-10.2); TOTAL PROTEIN 5.3 g/dl (6.1-8.1)
[2016-09-19] MEDS: CALCIUM/VITAMIN D (500/200) TAB PO SCH ×2 (09:14→21:46)
[2016-09-19] MEDS: PANTOPRAZOLE (EC) 40 MG TAB PO SCH (09:14)
[2016-09-19] MEDS: ESCITALOPRAM 10 MG TAB PO SCH (09:14)
[2016-09-19] MEDS: MEGESTROL (40 MG/ML) 10ML CUP PO SCH ×2 (09:15→21:00)
[2016-09-19] MEDS: BICALUTAMIDE 50 MG TAB PO SCH (09:27)
[2016-09-19] MEDS: HYDROmorphONE 2 MG TAB PO PRN ×2 (09:42→21:46)
[2016-09-19 09:49] LABS: LYMPHOCYTES # 0.5 10^3/ul (0.8-2.9); MONOCYTE # 0.3 10^3/ul (0.3-0.9); NEUTROPHIL # 1.5 10^3/ul (1.6-7.5); PLATELET ESTIMATE PLT APPEAR DECREASED
[2016-09-19] MEDS: SOD CHLORIDE 0.9% 1,000 ML IV SCH (11:52)
--- NOTE | 2016-09-19 13:38 | PN ---
Date/Time of Note Date/Time of Note DATE: 09/19/16 TIME: 13:37 Assessment/Plan VTE Prophylaxis VTE Prophylaxis Intervention: other Lines/Catheters IV Catheter Type (from Nrsg): Peripheral IV Urinary Cath still in place: Yes Reason Cath still needed: skin wounds contaminated by urine Assessment/Plan Chief Complaint/Hosp Course 1) Hypotension - stable 2) Dehydration - IV fluids 3) Anemia - monitor H/H 4) Intractable pain - pain control 5) Prostate carcinoma - sp Radiation therapy by Dr Ghassan Hylton - oncology consult appreciated- Dr Silva 6) Thrombocytopenia - lovenox on hold 7) C. diff colitis - flagyl 500mg IV q6hr Patient and family may be ready for hospice Problems: Subjective 24 Hr Interval Summary Free Text/Dictation Patient had diarrhea and was found to have C. diff. Exam/Review of Systems Vital Signs Vitals Vital Signs Date Time Temp Pulse Resp B/P Pulse Ox O2 Delivery O2 Flow Rate FiO2 09/19/16 08:57 97.7 77 16 114/71 93 09/19/16 00:25 Room Air 09/15/16 21:00 2.0 Intake and Output 09/18/16 09/18/16 09/19/16 15:00 23:00 07:00 Intake Total 440 ml 1400 ml 200 ml Output Total 750 ml Balance 440 ml 650 ml 200 ml Exam Constitutional: well developed Head: atraumatic, normocephalic Neck: supple Respiratory: clear to auscultation Cardiovascular: regular rate and rhythm Gastrointestinal: non-tender, soft Extremities: normal pulses Results Result Diagram: 09/19/16 0435 09/19/16 0719 Results 24 hrs Laboratory Tests Test 09/19/16 04:35 09/19/16 06:45 09/19/16 07:19 Band Neutrophils % 6.0 H Blood Morphology Comment Eosinophils # 0.0 Eosinophils % 1.0 Hematocrit 18.3 #L Hemoglobin 6.1 #*L Lymphocytes # 0.5 L Lymphocytes % 20.0 Mean Corpuscular Hemoglobin 28.4 L Mean Corpuscular Hemoglobin Concent 33.5 Mean Corpuscular Volume 84.7 Mean Platelet Volume 7.5 Monocytes # 0.3 Monocytes % 11.0 Neutrophils # 1.5 L Neutrophils % 62.0 Nucleated Red Blood Cells # Nucleated Red Blood Cells % 2.0 H Platelet Count 78 L Platelet Estimate PLT APPEAR DECREASED Red Blood Count 2.16 #L Red Cell Distribution Width 18.9 H White Blood Count 2.4 #L Bedside Glucose 77 Alanine Aminotransferase (ALT/SGPT) 30 Albumin 2.3 L Albumin/Globulin Ratio 0.76 Alkaline Phosphatase 1100 H Anion Gap 12 Aspartate Amino Transf (AST/SGOT) 44 Blood Urea Nitrogen 4 L Calcium Level 7.1 L Carbon Dioxide Level 23 Chloride Level 106 Creatinine 0.31 L Direct Bilirubin 0.00 Globulin 3.00 Glucose Level 74 Indirect Bilirubin 0.4 Potassium Level 3.1 L Sodium Level 138 Total Bilirubin 0.4 Total Protein 5.3 L Medications Medications Current Medications Sodium Chloride (NS) 1,000 ml @ 80 mls/hr [id number] IV Last administered on 11:52; Admin Dose 80 MLS/HR; Start 09/06/16 at 23:30 Bicalutamide (Casodex) 50 mg QAM PO Last administered on 09/19/16 09:27; Admin Dose 50 MG; Start 09/07/16 at 09:00 Docusate Sodium (Colace) 100 mg BID PRN PO CONSTIPATION Last administered on at 22:45; Admin Dose 100 MG; Start 09/07/16 at 00:00 Escitalopram Oxalate (Lexapro) 5 mg DAILY PO Last administered on 09/19/16 09: 14; Admin Dose 5 MG; Start 09/07/16 at 09:00 Megestrol Acetate (Megace Susp) 400 mg BID PO Last administered on 09/19/16 09: 15; Admin Dose 400 MG; Start 09/07/16 at 09:00 Methylnaltrexone [place] (Relistor) 12 mg Q48H SC Last administered on at 01:04; Admin Dose 12 MG; Start 09/07/16 at 00:00 Ondansetron HCl (Zofran Tab) 4 mg Q6H PRN PO NAUSEA AND/OR VOMITING Last administered on 09/19/16 05:30; Admin Dose 4 MG; Start 09/07/16 at 00:00 Acetaminophen (Tylenol Tab) 500 mg Q4H PRN PO PAIN AND OR ELEVATED TEMP Last administered on 09/08/16at 21:03; Admin Dose 500 MG; Start 09/07/16 at 21:30 Enoxaparin Sodium (Lovenox) 55 mg Q12H SC Last administered on 09/19/16 00:45; Admin Dose 55 MG; Start 09/09/16 at 12:00 IV Flush (NS 10 ml) 10 ml PRN PRN IV IV PROTOCOL; Start 09/11/16 at 10:00 Calcium/Vitamin D (Oyster Shell/ Vit-D (500/200)) 1 tab BID PO Last administered on 09/19/16 09:14; Admin Dose 1 TAB; Start 09/12/16 at 14:00 Hydromorphone HCl (Dilaudid) 2 mg Q4H PRN PO PAIN Last administered on 09:42; Admin Dose 2 MG; Start 09/16/16 at 22:19 Ketorolac Tromethamine (Toradol) 30 mg Q6H IV Last administered on 09/19/16 00: 42; Admin Dose 30 MG; Start 09/16/16 at 18:30; Stop 09/19/16 at 18:29 Methadone HCl (Methadone Liq (Ped)) 1 mg Q6 PO Last administered on 09/19/16 11 :52; Admin Dose 1 MG; Start 09/16/16 at 19:00 NASREEN DAMON Sep 19, 2016 13:38
[2016-09-19] MEDS ORDERED: LIDOCAINE 1% (MDV) 20 ML INJ SC ONE (17:00)
--- NOTE | 2016-09-19 17:28 | CONS ---
Date/Time of Note Date/Time of Note DATE: 09/19/16 TIME: 17:27 Assessment/Plan Assessment/Plan Chief Complaint/Hosp Course Metastatic prostate cancer. RE: chemotherapy and steroids - PER PROTOCOL Chemotherapy Docetaxel (Taxotere) 30 mg/m2 IV over 30 minutes once per day on days 1, 8, 15, 22, 29 Prednisone (Sterapred) 5 mg PO BID on days 1 to 42 Supportive medications Dexamethasone (Decadron) 8 mg (route not specified) once 1 hour before Docetaxel (Taxotere) Antiemetics "according to local practice" 42-day cycle for up to 5 cycles ANEMIA POST PRBC MONITOR CLOSELY OBSERVE FOR BLEEDING AND HEMOLYSIS Thrombocytopenia. Continue to monitor platelets. transfuse as needed PANCYTOPENIA MONITOR DECONDITIONING PT Acute on chronic back pain. Problems: Consultation Date/Type/Reason Admit Date/Time Sep 06, 2016 at 22:01 Initial Consult Date 09/08/16 Type of Consultation: Hematology/Oncology Reason for Consultation PROSTATE CANCER Referring Provider: TIMOTHY MARAVILLA MD 24 HR Interval Summary Free Text/Dictation ALL NOTED + PAIN WEAK FAMILY AT BEDSIDE Exam/Review of Systems Vital Signs Vitals Vital Signs Date Time Temp Pulse Resp B/P Pulse Ox O2 Delivery O2 Flow Rate FiO2 09/19/16 16:00 98.4 78 16 121/74 09/19/16 08:57 93 09/19/16 00:25 Room Air 09/15/16 21:00 2.0 Intake and Output 09/18/16 09/18/16 09/19/16 15:00 23:00 07:00 Intake Total 440 ml 1400 ml 200 ml Output Total 750 ml Balance 440 ml 650 ml 200 ml Exam Constitutional: alert, oriented Psych: nl mood/affect Head: normocephalic Eyes: EOMI, nl conjunctiva ENMT: nl external ears & nose Neck: non-tender Respiratory: clear to auscultation Cardiovascular: nl pulses Gastrointestinal: soft, tender (diffuse tenderness ) Extremities: normal pulses 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: nl speech Skin: nl turgor Lymph: nontender Results Result Diagram: 09/19/16 0435 09/19/16 0719 Results 24 hrs Laboratory Tests Test 09/19/16 04:35 09/19/16 06:45 09/19/16 07:19 Band Neutrophils % 6.0 H Blood Morphology Comment Eosinophils # 0.0 Eosinophils % 1.0 Hematocrit 18.3 #L Hemoglobin 6.1 #*L Lymphocytes # 0.5 L Lymphocytes % 20.0 Mean Corpuscular Hemoglobin 28.4 L Mean Corpuscular Hemoglobin Concent 33.5 Mean Corpuscular Volume 84.7 Mean Platelet Volume 7.5 Monocytes # 0.3 Monocytes % 11.0 Neutrophils # 1.5 L Neutrophils % 62.0 Nucleated Red Blood Cells # Nucleated Red Blood Cells % 2.0 H Platelet Count 78 L Platelet Estimate PLT APPEAR DECREASED Red Blood Count 2.16 #L Red Cell Distribution Width 18.9 H White Blood Count 2.4 #L Bedside Glucose 77 Alanine Aminotransferase (ALT/SGPT) 30 Albumin 2.3 L Albumin/Globulin Ratio 0.76 Alkaline Phosphatase 1100 H Anion Gap 12 Aspartate Amino Transf (AST/SGOT) 44 Blood Urea Nitrogen 4 L Calcium Level 7.1 L Carbon Dioxide Level 23 Chloride Level 106 Creatinine 0.31 L Direct Bilirubin 0.00 Globulin 3.00 Glucose Level 74 Indirect Bilirubin 0.4 Potassium Level 3.1 L Sodium Level 138 Total Bilirubin 0.4 Total Protein 5.3 L Medications Medications Current Medications Sodium Chloride (NS) 1,000 ml @ 80 mls/hr [id number] IV Last administered on 11:52; Admin Dose 80 MLS/HR; Start 09/06/16 at 23:30 Bicalutamide (Casodex) 50 mg QAM PO Last administered on 09/19/16 09:27; Admin Dose 50 MG; Start 09/07/16 at 09:00 Docusate Sodium (Colace) 100 mg BID PRN PO CONSTIPATION Last administered on at 22:45; Admin Dose 100 MG; Start 09/07/16 at 00:00 Escitalopram Oxalate (Lexapro) 5 mg DAILY PO Last administered on 09/19/16 09: 14; Admin Dose 5 MG; Start 09/07/16 at 09:00 Megestrol Acetate (Megace Susp) 400 mg BID PO Last administered on 09/19/16 09: 15; Admin Dose 400 MG; Start 09/07/16 at 09:00 Methylnaltrexone [place] (Relistor) 12 mg Q48H SC Last administered on at 01:04; Admin Dose 12 MG; Start 09/07/16 at 00:00 Ondansetron HCl (Zofran Tab) 4 mg Q6H PRN PO NAUSEA AND/OR VOMITING Last administered on 09/19/16 05:30; Admin Dose 4 MG; Start 09/07/16 at 00:00 Acetaminophen (Tylenol Tab) 500 mg Q4H PRN PO PAIN AND OR ELEVATED TEMP Last administered on 09/08/16at 21:03; Admin Dose 500 MG; Start 09/07/16 at 21:30 Enoxaparin Sodium (Lovenox) 55 mg Q12H SC Last administered on 09/19/16 00:45; Admin Dose 55 MG; Start 09/09/16 at 12:00 IV Flush (NS 10 ml) 10 ml PRN PRN IV IV PROTOCOL; Start 09/11/16 at 10:00 Calcium/Vitamin D (Oyster Shell/ Vit-D (500/200)) 1 tab BID PO Last administered on 09/19/16 09:14; Admin Dose 1 TAB; Start 09/12/16 at 14:00 Hydromorphone HCl (Dilaudid) 2 mg Q4H PRN PO PAIN Last administered on 09:42; Admin Dose 2 MG; Start 09/16/16 at 22:19 Ketorolac Tromethamine (Toradol) 30 mg Q6H IV Last administered on 09/19/16 00: 42; Admin Dose 30 MG; Start 09/16/16 at 18:30; Stop 09/19/16 at 18:29 Methadone HCl 1 mg 1 mg Q6 PO Last administered on 09/19/16 11:52; Admin Dose 1 MG; Start 09/16/16 at 19:00 Metronidazole (Flagyl 500 Mg (Pmx)) 100 ml @ 100 mls/hr Q6 IVPB ; Start at 18:00 JARAD CHOI MD Sep 19, 2016 17:27
[2016-09-19] MEDS: metroNIDAZOLE 500 MG/NS (PMX) 100 ML IVPB SCH (19:35)
[2016-09-20 00:03] VITALS: BP 111/69; PULSE 70; RESP 16
[2016-09-20] MEDS: METHADONE (1 MG/1 ML PO SYG) PO SCH ×4 (00:28→17:44)
[2016-09-20] MEDS: ENOXAPARIN 60 MG/0.6 ML SYG SC SCH ×2 (00:33→11:56)
[2016-09-20 01:03] VITALS: BP 113/69; PULSE 70; RESP 16
[2016-09-20 01:18] VITALS: BP 110/69; PULSE 71; RESP 17
[2016-09-20] MEDS: metroNIDAZOLE 500 MG/NS (PMX) 100 ML IVPB SCH ×4 (01:45→17:44)
[2016-09-20 02:18] VITALS: BP 115/72; PULSE 75; RESP 17
[2016-09-20 05:19] LABS: BASOPHILS % 0.4 % (0.0-2.0); EOSINOPHILS % 0.1 % (0.0-7.0); HEMATOCRIT 33.6 % (42.0-52.0); HEMOGLOBIN 11.5 g/dl (14.0-18.0); LYMPHOCYTES # 1.2 10^3/ul (0.8-2.9); LYMPHOCYTES % 29.7 % (15.0-51.0); MEAN CORPUSCULAR HEMOGLOBIN 28.5 pg (29.0-33.0); MEAN CORPUSCULAR HGB CONC 34.1 g/dl (32.0-37.0); MEAN CORPUSCULAR VOLUME 83.4 fl (82.0-101.0); MEAN PLATELET VOLUME 7.3 fl (7.4-10.4); MONOCYTE # 0.6 10^3/ul (0.3-0.9); NEUTROPHIL # 2.2 10^3/ul (1.6-7.5); NEUTROPHILS % 54.8 % (39.0-77.0); PLATELET COUNT 98 10^3/UL (140-440); RED BLOOD COUNT 4.03 10^6/ul (4.70-6.10); RED CELL DISTRIBUTION WIDTH 16.9 % (11.5-14.5); UNCORRECTED WBC 3.9 10^3/ul (4.8-10.8); WHITE BLOOD COUNT 3.9 10^3/ul (4.8-10.8)
[2016-09-20 05:27] LABS: ALBUMIN 2.5 g/dl (3.3-4.9); CONDITION 1; LH ANALYZER COMMENTS 1
[2016-09-20 05:28] LABS: POTASSIUM 3.5 mmol/L (3.5-5.1)
[2016-09-20 05:30] LABS: BILIRUBIN,INDIRECT 0.4 mg/dl (0-1.1); BILIRUBIN,TOTAL 0.4 mg/dl (0.2-1.3); CREATININE 0.34 mg/dl (0.61-1.24)
[2016-09-20] MEDS: HYDROmorphONE 2 MG TAB PO PRN ×2 (05:30→13:02)
[2016-09-20 05:31] LABS: ALBUMIN/GLOBULIN RATIO 0.86; CALCIUM 6.9 mg/dl (8.4-10.2); TOTAL PROTEIN 5.4 g/dl (6.1-8.1)
[2016-09-20] MEDS: PANTOPRAZOLE (EC) 40 MG TAB PO SCH (05:53)
[2016-09-20 08:19] VITALS: BP 100/67; RESP 17
[2016-09-20] MEDS: ESCITALOPRAM 10 MG TAB PO SCH (09:16)
[2016-09-20] MEDS: MEGESTROL (40 MG/ML) 10ML CUP PO SCH ×2 (09:16→21:55)
[2016-09-20] MEDS: CALCIUM/VITAMIN D (500/200) TAB PO SCH ×2 (09:16→21:55)
[2016-09-20] MEDS: BICALUTAMIDE 50 MG TAB PO SCH (09:37)
--- NOTE | 2016-09-20 09:56 | CONS ---
DATE OF ADMISSION: 09/06/2016 DATE OF CONSULTATION: 09/17/2016 TYPE OF CONSULTATION: Palliative care and pain management. HISTORY OF PRESENT ILLNESS: Mr. Connor Mcmullen is a 60-year-old gentleman who presented to [facility], admitted for dehydration and generalized weakness and pain out of control. He christensen s a history of metastatic prostate cancer primary care oncologist is Dr. Suzan Hernandez. The patien t has been admitted. His fluid and electrolyte abnormalities have been corrected. He has been rehy drated. Close attention to his pain management has been completed; however, patient still complains of generalized pain primarily in his abdomen and right lower extremity. Denies nausea, vomiting as sociated with this, although it is difficult to get history from the patient as he is very emotional ly labile at the time of this examination. One of the questions to address with the patient and rogelio rubio is: 1. His code status. 2. Addresses his pain management. The patient is unable to answer my questions. I asked him in [place] and he continues to repeat rep etitively that he is uncomfortable generally, but on repeated questioning, he repeats that answer an d at times essentially just babbles. The majority of history is taken from patient's medical record s and in speaking to his family members. MEDICATIONS: Please refer to reconciliation sheet. ALLERGIES: NO KNOWN DRUG ALLERGIES. MAJOR MEDICAL PROBLEMS IN THE PAST: Please refer the extensive note done by Dr. Li 09/06/2016. Essentially, the gentleman has a history of intractable pain, metastatic prostate cancer, status p ost radiation therapy. SOCIAL HISTORY: Unknown. FAMILY HISTORY: Unknown. REVIEW OF SYSTEMS: Cannot be obtained. PHYSICAL EXAMINATION: GENERAL: Shows an emaciated-appearing gentleman, very frail; however, alert, moaning and groaning. VITAL SIGNS: Blood pressure 115/72, pulse is 75 and regular, respirations of 17, temperature 97.8 d egrees. CHEST: Shows bilateral clear breath sounds throughout both lung banuelos. COR: S1, S2, without S3, S4, murmur, gallop, rub. Normal rate, normal rhythm. ABDOMEN: Grossly benign. LABORATORY TESTS: Have been reviewed. ASSESSMENT AND PLAN: 1. Pain management. One of the concerns is whether or not the patient was having neurological comp lications associated with current opioids and that his mental status has deteriorated secondary to t hat. Based on that, I will adjust his current pain medications and discontinue MS-Contin and switch him to methadone 1 mg q.6h., ketorolac 30 mg IV push q.6h., and hydromorphone 2 mg q.4h. That will be continued. That was a prior order. Follow his neurological status. I have discontinued any me dications that could be centrally acting. 2. The patient's metastatic prostate cancer, code status and goals of care. I have spoken to the selvin houston's granddaughter, who is the spokesperson for the family. The family states that hospice was called to see the patient, but they were not aware if hospice would be consulted. They have spoken to them that they have not signed the consents for services. It difficult to consider changing chela ent to hospice care as his mental status may be affecting his ability to make his own decisions and family members will respect his decisions whatever he has decided upon on the level of care. Theref ore, will change to the above pain control medications, allow a wash out period on the morphine and follow patient closely and hopefully he will be able to make the decisions on his ongoing level of c are, without family's involvement, even though I believe that they have been very compassionate and want to help him make the decision which is in his best interest, and would continue with his qualit y of life. I will follow up with family members. I had a long discussion with them and will follow up in approximately 2 days. Dictated By: FERNANDO KING MD, LP/ADRIANA Conf#: [id number] DID#: [id number]
[2016-09-20] MEDS: SOD CHLORIDE 0.9% 1,000 ML IV SCH ×2 (11:23)
--- NOTE | 2016-09-20 12:48 | PN ---
Date/Time of Note Date/Time of Note DATE: 09/20/16 TIME: 12:47 Assessment/Plan VTE Prophylaxis VTE Prophylaxis Intervention: LMWH Lines/Catheters IV Catheter Type (from Nrsg): Peripheral IV Urinary Cath still in place: Yes Reason Cath still needed: skin wounds contaminated by urine Assessment/Plan Chief Complaint/Hosp Course 1) Hypotension - stable 2) Dehydration - IV fluids 3) Anemia - monitor H/H 4) Intractable pain - pain control 5) Prostate carcinoma - sp Radiation therapy by Dr Ghassan Hylton - oncology consult appreciated- Dr Silva 6) Thrombocytopenia - lovenox on hold 7) C. diff colitis - flagyl 500mg IV q6hr Patient and family may be ready for hospice Problems: Subjective 24 Hr Interval Summary Free Text/Dictation Patient has no complaints Exam/Review of Systems Vital Signs Vitals Vital Signs Date Time Temp Pulse Resp B/P Pulse Ox O2 Delivery O2 Flow Rate FiO2 09/20/16 08:19 98.4 78 17 100/67 94 09/20/16 02:18 Room Air Intake and Output 09/19/16 09/19/16 09/20/16 15:00 23:00 07:00 Intake Total 1080 ml 762 ml 940 ml Output Total 750 ml 1600 ml 980 ml Balance 330 ml -838 ml -40 ml Exam Constitutional: well developed Head: atraumatic, normocephalic Neck: supple Respiratory: clear to auscultation Cardiovascular: regular rate and rhythm Gastrointestinal: non-tender, soft Results Result Diagram: 09/20/16 0433 09/20/16 0433 Results 24 hrs Laboratory Tests Test 09/20/16 04:33 Alanine Aminotransferase (ALT/SGPT) 26 Albumin 2.5 L Albumin/Globulin Ratio 0.86 Alkaline Phosphatase 1128 H Anion Gap 13 Aspartate Amino Transf (AST/SGOT) 37 Basophils # 0.0 Basophils % 0.4 Blood Morphology Comment Blood Urea Nitrogen 6 L Calcium Level 6.9 L Carbon Dioxide Level 22 Chloride Level 106 Creatinine 0.34 L Direct Bilirubin 0.00 Eosinophils # 0.0 Eosinophils % 0.1 Globulin 2.90 Glucose Level 78 Hematocrit 33.6 #L Hemoglobin 11.5 #L Indirect Bilirubin 0.4 Lymphocytes # 1.2 Lymphocytes % 29.7 Mean Corpuscular Hemoglobin 28.5 L Mean Corpuscular Hemoglobin Concent 34.1 Mean Corpuscular Volume 83.4 Mean Platelet Volume 7.3 L Monocytes # 0.6 Monocytes % 15.0 H Neutrophils # 2.2 Neutrophils % 54.8 Nucleated Red Blood Cells # 0.0 Nucleated Red Blood Cells % 0.0 Platelet Count 98 #L Potassium Level 3.5 Red Blood Count 4.03 #L Red Cell Distribution Width 16.9 H Sodium Level 137 Total Bilirubin 0.4 Total Protein 5.4 L White Blood Count 3.9 #L Medications Medications Current Medications Sodium Chloride (NS) 1,000 ml @ 80 mls/hr [id number] IV Last administered on 11:23; Admin Dose 80 MLS/HR; Start 09/06/16 at 23:30 Bicalutamide (Casodex) 50 mg QAM PO Last administered on 09/20/16 09:37; Admin Dose 50 MG; Start 09/07/16 at 09:00 Docusate Sodium (Colace) 100 mg BID PRN PO CONSTIPATION Last administered on 22:45; Admin Dose 100 MG; Start 09/07/16 at 00:00 Escitalopram Oxalate (Lexapro) 5 mg DAILY PO Last administered on 09/20/16 09: 16; Admin Dose 5 MG; Start 09/07/16 at 09:00 Megestrol Acetate (Megace Susp) 400 mg BID PO Last administered on 09/20/16 09: 16; Admin Dose 400 MG; Start 09/07/16 at 09:00 Methylnaltrexone [place] (Relistor) 12 mg Q48H SC Last administered on at 01:04; Admin Dose 12 MG; Start 09/07/16 at 00:00 Ondansetron HCl (Zofran Tab) 4 mg Q6H PRN PO NAUSEA AND/OR VOMITING Last administered on 09/19/16 05:30; Admin Dose 4 MG; Start 09/07/16 at 00:00 Acetaminophen (Tylenol Tab) 500 mg Q4H PRN PO PAIN AND OR ELEVATED TEMP Last administered on 09/08/16at 21:03; Admin Dose 500 MG; Start 09/07/16 at 21:30 Enoxaparin Sodium (Lovenox) 55 mg Q12H SC Last administered on 09/20/16 00:33; Admin Dose 55 MG; Start 09/09/16 at 12:00 IV Flush (NS 10 ml) 10 ml PRN PRN IV IV PROTOCOL; Start 09/11/16 at 10:00 Calcium/Vitamin D (Oyster Shell/ Vit-D (500/200)) 1 tab BID PO Last administered on 09/20/16 09:16; Admin Dose 1 TAB; Start 09/12/16 at 14:00 Hydromorphone HCl (Dilaudid) 2 mg Q4H PRN PO PAIN Last administered on 05:30; Admin Dose 2 MG; Start 09/16/16 at 22:19 Methadone HCl 1 mg 1 mg Q6 PO Last administered on 09/20/16 11:23; Admin Dose 1 MG; Start 09/16/16 at 19:00 Metronidazole (Flagyl 500 Mg (Pmx)) 100 ml @ 100 mls/hr Q6 IVPB Last administered on 09/20/16 11:23; Admin Dose 100 MLS/HR; Start 09/19/16 at 18:00 NASREEN DAMON Sep 20, 2016 12:47
[2016-09-20 20:00] VITALS: BP 102/68; PULSE 77; RESP 18
--- NOTE | 2016-09-20 20:56 | CONS ---
Date/Time of Note Date/Time of Note DATE: 09/20/16 TIME: 20:56 Assessment/Plan Assessment/Plan Chief Complaint/Hosp Course Metastatic prostate cancer. RE: chemotherapy and steroids - PER PROTOCOL Chemotherapy Docetaxel (Taxotere) 30 mg/m2 IV over 30 minutes once per day on days 1, 8, 15, 22, 29 Prednisone (Sterapred) 5 mg PO BID on days 1 to 42 Supportive medications Dexamethasone (Decadron) 8 mg (route not specified) once 1 hour before Docetaxel (Taxotere) Antiemetics "according to local practice" 42-day cycle for up to 5 cycles ANEMIA POST PRBC MONITOR CLOSELY OBSERVE FOR BLEEDING AND HEMOLYSIS Thrombocytopenia. Continue to monitor platelets. transfuse as needed PANCYTOPENIA MONITOR DECONDITIONING PT Acute on chronic back pain. Problems: Consultation Date/Type/Reason Admit Date/Time Sep 06, 2016 at 22:01 Initial Consult Date 09/08/16 Type of Consultation: Hematology/Oncology Reason for Consultation PROSTATE CANCER Referring Provider: TIMOTHY MARAVILLA MD 24 HR Interval Summary Free Text/Dictation ALL NOTED + pain DR CANNON ON THE CASE Exam/Review of Systems Vital Signs Vitals Vital Signs Date Time Temp Pulse Resp B/P Pulse Ox O2 Delivery O2 Flow Rate FiO2 09/20/16 08:19 98.4 78 17 100/67 94 09/20/16 02:18 Room Air Intake and Output 09/19/16 09/19/16 09/20/16 15:00 23:00 07:00 Intake Total 1080 ml 762 ml 940 ml Output Total 750 ml 1600 ml 980 ml Balance 330 ml -838 ml -40 ml Exam Constitutional: alert, oriented Psych: nl mood/affect Head: normocephalic Eyes: EOMI, nl conjunctiva ENMT: nl external ears & nose Neck: non-tender Respiratory: clear to auscultation Cardiovascular: nl pulses Gastrointestinal: soft, tender (diffuse tenderness ) Extremities: normal pulses 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: nl speech Skin: nl turgor Lymph: nontender Results Result Diagram: 09/20/16 0433 09/20/16 0433 Results 24 hrs Laboratory Tests Test 09/20/16 04:33 Alanine Aminotransferase (ALT/SGPT) 26 Albumin 2.5 L Albumin/Globulin Ratio 0.86 Alkaline Phosphatase 1128 H Anion Gap 13 Aspartate Amino Transf (AST/SGOT) 37 Basophils # 0.0 Basophils % 0.4 Blood Morphology Comment Blood Urea Nitrogen 6 L Calcium Level 6.9 L Carbon Dioxide Level 22 Chloride Level 106 Creatinine 0.34 L Direct Bilirubin 0.00 Eosinophils # 0.0 Eosinophils % 0.1 Globulin 2.90 Glucose Level 78 Hematocrit 33.6 #L Hemoglobin 11.5 #L Indirect Bilirubin 0.4 Lymphocytes # 1.2 Lymphocytes % 29.7 Mean Corpuscular Hemoglobin 28.5 L Mean Corpuscular Hemoglobin Concent 34.1 Mean Corpuscular Volume 83.4 Mean Platelet Volume 7.3 L Monocytes # 0.6 Monocytes % 15.0 H Neutrophils # 2.2 Neutrophils % 54.8 Nucleated Red Blood Cells # 0.0 Nucleated Red Blood Cells % 0.0 Platelet Count 98 #L Potassium Level 3.5 Red Blood Count 4.03 #L Red Cell Distribution Width 16.9 H Sodium Level 137 Total Bilirubin 0.4 Total Protein 5.4 L White Blood Count 3.9 #L Medications Medications Current Medications Sodium Chloride (NS) 1,000 ml @ 80 mls/hr [id number] IV Last administered on 11:23; Admin Dose 80 MLS/HR; Start 09/06/16 at 23:30 Bicalutamide (Casodex) 50 mg QAM PO Last administered on 09/20/16 09:37; Admin Dose 50 MG; Start 09/07/16 at 09:00 Docusate Sodium (Colace) 100 mg BID PRN PO CONSTIPATION Last administered on at 22:45; Admin Dose 100 MG; Start 09/07/16 at 00:00 Escitalopram Oxalate (Lexapro) 5 mg DAILY PO Last administered on 09/20/16 09: 16; Admin Dose 5 MG; Start 09/07/16 at 09:00 Megestrol Acetate (Megace Susp) 400 mg BID PO Last administered on 09/20/16 09: 16; Admin Dose 400 MG; Start 09/07/16 at 09:00 Methylnaltrexone [place] (Relistor) 12 mg Q48H SC Last administered on 01:04; Admin Dose 12 MG; Start 09/07/16 at 00:00 Ondansetron HCl (Zofran Tab) 4 mg Q6H PRN PO NAUSEA AND/OR VOMITING Last administered on 09/19/16 05:30; Admin Dose 4 MG; Start 09/07/16 at 00:00 Acetaminophen (Tylenol Tab) 500 mg Q4H PRN PO PAIN AND OR ELEVATED TEMP Last administered on 09/08/16at 21:03; Admin Dose 500 MG; Start 09/07/16 at 21:30 Enoxaparin Sodium (Lovenox) 55 mg Q12H SC Last administered on 09/20/16 00:33; Admin Dose 55 MG; Start 09/09/16 at 12:00 IV Flush (NS 10 ml) 10 ml PRN PRN IV IV PROTOCOL; Start 09/11/16 at 10:00 Calcium/Vitamin D (Oyster Shell/ Vit-D (500/200)) 1 tab BID PO Last administered on 09/20/16 09:16; Admin Dose 1 TAB; Start 09/12/16 at 14:00 Hydromorphone HCl (Dilaudid) 2 mg Q4H PRN PO PAIN Last administered on 13:02; Admin Dose 2 MG; Start 09/16/16 at 22:19 Methadone HCl 1 mg 1 mg Q6 PO Last administered on 09/20/16 17:44; Admin Dose 1 MG; Start 09/16/16 at 19:00 Metronidazole (Flagyl 500 Mg (Pmx)) 100 ml @ 100 mls/hr Q6 IVPB Last administered on 09/20/16 17:44; Admin Dose 100 MLS/HR; Start 09/19/16 at 18:00 JARAD CHOI MD Sep 20, 2016 20:56
[2016-09-21] MEDS: METHADONE (1 MG/1 ML PO SYG) PO SCH ×4 (00:31→17:51)
[2016-09-21] MEDS: METHYLNALTREXONE 12 MG/0.6 ML VIAL SC SCH ×2 (00:31)
[2016-09-21] MEDS: SOD CHLORIDE 0.9% 1,000 ML IV SCH ×3 (00:32→21:50)
[2016-09-21] MEDS: metroNIDAZOLE 500 MG/NS (PMX) 100 ML IVPB SCH ×4 (00:32→17:51)
[2016-09-21 01:31] VITALS: BP 102/68; RESP 18
[2016-09-21] MEDS: HYDROmorphONE 2 MG TAB PO PRN ×4 (02:22→21:54)
[2016-09-21 05:42] LABS: ALBUMIN 2.3 g/dl (3.3-4.9); POTASSIUM 3.6 mmol/L (3.5-5.1)
[2016-09-21 05:43] LABS: BASOPHILS % 0.3 % (0.0-2.0); EOSINOPHILS % 0.2 % (0.0-7.0); HEMATOCRIT 32.8 % (42.0-52.0); HEMOGLOBIN 11.3 g/dl (14.0-18.0); LYMPHOCYTES # 1.3 10^3/ul (0.8-2.9); LYMPHOCYTES % 25.9 % (15.0-51.0); MEAN CORPUSCULAR HEMOGLOBIN 28.8 pg (29.0-33.0); MEAN CORPUSCULAR HGB CONC 34.4 g/dl (32.0-37.0); MEAN CORPUSCULAR VOLUME 83.9 fl (82.0-101.0); MEAN PLATELET VOLUME 7.1 fl (7.4-10.4); MONOCYTE # 0.8 10^3/ul (0.3-0.9); MONOCYTES % 15.9 % (0.0-11.0); NEUTROPHIL # 2.9 10^3/ul (1.6-7.5); NEUTROPHILS % 57.7 % (39.0-77.0); PLATELET COUNT 101 10^3/UL (140-440); RED CELL DISTRIBUTION WIDTH 17.3 % (11.5-14.5)
[2016-09-21 05:44] LABS: BILIRUBIN,INDIRECT 0.3 mg/dl (0-1.1); BILIRUBIN,TOTAL 0.3 mg/dl (0.2-1.3); CREATININE 0.39 mg/dl (0.61-1.24)
[2016-09-21 05:45] LABS: ALBUMIN/GLOBULIN RATIO 0.79; CALCIUM 7.1 mg/dl (8.4-10.2); CONDITION 1; LH ANALYZER COMMENTS 1; TOTAL PROTEIN 5.2 g/dl (6.1-8.1)
[2016-09-21] MEDS: PANTOPRAZOLE (EC) 40 MG TAB PO SCH (06:21)
[2016-09-21 07:47] VITALS: BP 116/65; RESP 19
[2016-09-21] MEDS: ESCITALOPRAM 10 MG TAB PO SCH (08:49)
[2016-09-21] MEDS: CALCIUM/VITAMIN D (500/200) TAB PO SCH ×2 (08:49→21:00)
[2016-09-21] MEDS: MEGESTROL (40 MG/ML) 10ML CUP PO SCH ×3 (08:50→21:54)
[2016-09-21] MEDS: BICALUTAMIDE 50 MG TAB PO SCH (08:58)
--- NOTE | 2016-09-21 10:26 | RADRPT ---
PROCEDURE: US guidance for PICC line CLINICAL INDICATION: PICC line placement TECHNIQUE: Multiple real-time images were acquired of the patient's arm utilizing a high resolutio n transducer. This was performed by the PICC line nurse for venous access. COMPARISON: None FINDINGS: Ultrasound guidance for PICC line placement. IMPRESSION: Ultrasound guidance for PICC line placement. RPTAT: AA .Christiano Berrios MD, MD Date Time Electronically viewed and signed by .Christiano Berriso MD, on 09/21/2016 10:25 .S/
--- NOTE | 2016-09-21 10:39 | RADRPT ---
PROCEDURE: XR Chest. CLINICAL INDICATION: PICC placement Cough TECHNIQUE: AP chest x-ray. COMPARISON: 09/11/2016 FINDINGS: The left upper extremity approach PICC line extends into the left internal jugular vein. The tip is not seen and extends beyond the foramen image. There is no evidence of pneumothorax. Lungs are cl ear. Previously seen perihilar and lower lobe infiltrates have resolved. The cardiomediastinal mikael houette is unremarkable.. IMPRESSION: 1. Left PICC extending into the left internal jugular vein. Recommend repositioning. 2. Interval resolution of previously seen perihilar and lower lobe infiltrates Findings discussed with PICC nurse, Astrid Jerez on 09/21/2016 at 10:36 AM RPTAT: QQ .Jay Jay Day MD, Date Time Electronically viewed and signed by .JayJ ay Day MD, on 09/21/2016 10:39 .A/
--- NOTE | 2016-09-21 10:43 | RADRPT ---
PROCEDURE: XR Chest. CLINICAL INDICATION: PICC placement TECHNIQUE: AP chest x-ray. COMPARISON: 09/21/2016 of 10:31 a.m. FINDINGS: There is interval repositioning of the left upper extremity PICC with the tip now at the cavoatrial junction. There is no evidence of pneumothorax. The lungs are clear. No focal opacification is seen . The cardiomediastinal silhouette is unremarkable. The osseous structures are unremarkable. IMPRESSION: Interval repositioning of the left extremity PICC with the tip at the cavoatrial junction. No evide nce of pneumothorax. RPTAT: QQ .Jay Jay Day MD, MD Date Time Electronically viewed and signed by .Jay Jay Day MD, on 09/21/2016 10:42 .A/
--- NOTE | 2016-09-21 12:11 | PN ---
Date/Time of Note Date/Time of Note DATE: 09/21/16 TIME: 12:10 Assessment/Plan VTE Prophylaxis VTE Prophylaxis Intervention: other Lines/Catheters IV Catheter Type (from Nrsg): PICC Line Central line still needed: Yes Urinary Cath still in place: Yes Reason Cath still needed: skin wounds contaminated by urine Assessment/Plan Chief Complaint/Hosp Course 1) Hypotension - stable 2) Dehydration - IV fluids 3) Anemia - monitor H/H 4) Intractable pain - pain control 5) Prostate carcinoma - sp Radiation therapy by Dr Ghassan Hylton - oncology consult appreciated- Dr Silva 6) Thrombocytopenia - lovenox on hold 7) C. diff colitis - flagyl 500mg IV q6hr Patient and family may be ready for hospice Problems: Subjective 24 Hr Interval Summary Free Text/Dictation Patient has no complaints Exam/Review of Systems Vital Signs Vitals Vital Signs Date Time Temp Pulse Resp B/P Pulse Ox O2 Delivery O2 Flow Rate FiO2 09/21/16 07:47 98.0 73 19 116/65 99 09/20/16 20:00 Room Air Intake and Output 09/20/16 09/20/16 09/21/16 14:59 22:59 06:59 Intake Total 378 ml 1140 ml 1300 ml Output Total 850 ml 2300 ml Balance 378 ml 290 ml -1000 ml Exam Constitutional: well developed Neck: supple Respiratory: clear to auscultation Cardiovascular: regular rate and rhythm Gastrointestinal: non-tender, soft Results Result Diagram: 09/21/16 0425 09/21/16 0425 Results 24 hrs Laboratory Tests Test 09/21/16 04:25 Alanine Aminotransferase (ALT/SGPT) 26 Albumin 2.3 L Albumin/Globulin Ratio 0.79 Alkaline Phosphatase 1110 H Anion Gap 14 Aspartate Amino Transf (AST/SGOT) 34 Basophils # 0.0 Basophils % 0.3 Blood Morphology Comment Blood Urea Nitrogen 4 L Calcium Level 7.1 L Carbon Dioxide Level 24 Chloride Level 107 Creatinine 0.39 L Direct Bilirubin 0.00 Eosinophils # 0.0 Eosinophils % 0.2 Globulin 2.90 Glucose Level 81 Hematocrit 32.8 L Hemoglobin 11.3 L Indirect Bilirubin 0.3 Lymphocytes # 1.3 Lymphocytes % 25.9 Mean Corpuscular Hemoglobin 28.8 L Mean Corpuscular Hemoglobin Concent 34.4 Mean Corpuscular Volume 83.9 Mean Platelet Volume 7.1 L Monocytes # 0.8 Monocytes % 15.9 H Neutrophils # 2.9 Neutrophils % 57.7 Nucleated Red Blood Cells # 0.0 Nucleated Red Blood Cells % 0.0 Platelet Count 101 L Potassium Level 3.6 Red Blood Count 3.90 L Red Cell Distribution Width 17.3 H Sodium Level 141 Total Bilirubin 0.3 Total Protein 5.2 L White Blood Count 5.0 # Medications Medications Current Medications Sodium Chloride (NS) 1,000 ml @ 80 mls/hr [id number] IV Last administered on 00:32; Admin Dose 80 MLS/HR; Start 09/06/16 at 23:30 Bicalutamide (Casodex) 50 mg QAM PO Last administered on 09/21/16 08:58; Admin Dose 50 MG; Start 09/07/16 at 09:00 Docusate Sodium (Colace) 100 mg BID PRN PO CONSTIPATION Last administered on 22:45; Admin Dose 100 MG; Start 09/07/16 at 00:00 Escitalopram Oxalate (Lexapro) 5 mg DAILY PO Last administered on 09/21/16 08: 49; Admin Dose 5 MG; Start 09/07/16 at 09:00 Megestrol Acetate (Megace Susp) 400 mg BID PO Last administered on 09/21/16 08: 50; Admin Dose 400 MG; Start 09/07/16 at 09:00 Methylnaltrexone [place] (Relistor) 12 mg Q48H SC Last administered on 01:04; Admin Dose 12 MG; Start 09/07/16 at 00:00 Ondansetron HCl (Zofran Tab) 4 mg Q6H PRN PO NAUSEA AND/OR VOMITING Last administered on 09/19/16 05:30; Admin Dose 4 MG; Start 09/07/16 at 00:00 Acetaminophen (Tylenol Tab) 500 mg Q4H PRN PO PAIN AND OR ELEVATED TEMP Last administered on 09/08/16at 21:03; Admin Dose 500 MG; Start 09/07/16 at 21:30 Enoxaparin Sodium (Lovenox) 55 mg Q12H SC Last administered on 09/20/16 00:33; Admin Dose 55 MG; Start 09/09/16 at 12:00 IV Flush (NS 10 ml) 10 ml PRN PRN IV IV PROTOCOL; Start 09/11/16 at 10:00 Calcium/Vitamin D (Oyster Shell/ Vit-D (500/200)) 1 tab BID PO Last administered on 09/21/16 08:49; Admin Dose 1 TAB; Start 09/12/16 at 14:00 Hydromorphone HCl (Dilaudid) 2 mg Q4H PRN PO PAIN Last administered on 06:56; Admin Dose 2 MG; Start 09/16/16 at 22:19 Methadone HCl 1 mg 1 mg Q6 PO Last administered on 09/21/16 05:53; Admin Dose 1 MG; Start 09/16/16 at 19:00 Metronidazole (Flagyl 500 Mg (Pmx)) 100 ml @ 100 mls/hr Q6 IVPB Last administered on 09/21/16 05:53; Admin Dose 100 MLS/HR; Start 09/19/16 at 18:00 IV Flush (NS 10 ml) 10 ml PRN PRN IV IV PROTOCOL; Start 09/21/16 at 12:00 NASREEN DAMON Sep 21, 2016 12:11
[2016-09-21] MEDS: ENOXAPARIN 60 MG/0.6 ML SYG SC SCH ×2 (13:19)
[2016-09-21 21:00] VITALS: BP 109/69; RESP 19
--- NOTE | 2016-09-21 23:16 | CONS ---
Date/Time of Note Date/Time of Note DATE: 09/21/16 TIME: 23:16 Assessment/Plan Assessment/Plan Chief Complaint/Hosp Course Metastatic prostate cancer. RE: chemotherapy and steroids - PER PROTOCOL Chemotherapy Docetaxel (Taxotere) 30 mg/m2 IV over 30 minutes once per day on days 1, 8, 15, 22, 29 Prednisone (Sterapred) 5 mg PO BID on days 1 to 42 Supportive medications Dexamethasone (Decadron) 8 mg (route not specified) once 1 hour before Docetaxel (Taxotere) Antiemetics "according to local practice" 42-day cycle for up to 5 cycles ANEMIA POST PRBC MONITOR CLOSELY OBSERVE FOR BLEEDING AND HEMOLYSIS Thrombocytopenia. Continue to monitor platelets. transfuse as needed PANCYTOPENIA MONITOR DECONDITIONING PT Acute on chronic back pain. Problems: Consultation Date/Type/Reason Admit Date/Time Sep 06, 2016 at 22:01 Initial Consult Date 09/08/16 Type of Consultation: Hematology/Oncology Reason for Consultation PROSTATE CANCER Referring Provider: TIMOTHY MARAVILLA MD 24 HR Interval Summary Free Text/Dictation SEEN BY DR DALE + PAIN LABS REVIEWED PT IS THINKING RE CHEMO Exam/Review of Systems Vital Signs Vitals Vital Signs Date Time Temp Pulse Resp B/P Pulse Ox O2 Delivery O2 Flow Rate FiO2 09/21/16 21:00 97.8 80 19 109/69 100 09/20/16 20:00 Room Air Intake and Output 09/20/16 09/20/16 09/21/16 15:00 23:00 07:00 Intake Total 378 ml 1140 ml 1400 ml Output Total 850 ml 2300 ml Balance 378 ml 290 ml -900 ml Exam Constitutional: alert, oriented Psych: nl mood/affect Head: normocephalic Eyes: EOMI, nl conjunctiva ENMT: nl external ears & nose Neck: non-tender Respiratory: clear to auscultation Cardiovascular: nl pulses Gastrointestinal: soft, tender (diffuse tenderness ) Extremities: normal pulses 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: nl speech Skin: nl turgor Lymph: nontender Results Result Diagram: 09/21/165 09/21/165 Results 24 hrs Laboratory Tests Test 09/21/16 04:25 Alanine Aminotransferase (ALT/SGPT) 26 Albumin 2.3 L Albumin/Globulin Ratio 0.79 Alkaline Phosphatase 1110 H Anion Gap 14 Aspartate Amino Transf (AST/SGOT) 34 Basophils # 0.0 Basophils % 0.3 Blood Morphology Comment Blood Urea Nitrogen 4 L Calcium Level 7.1 L Carbon Dioxide Level 24 Chloride Level 107 Creatinine 0.39 L Direct Bilirubin 0.00 Eosinophils # 0.0 Eosinophils % 0.2 Globulin 2.90 Glucose Level 81 Hematocrit 32.8 L Hemoglobin 11.3 L Indirect Bilirubin 0.3 Lymphocytes # 1.3 Lymphocytes % 25.9 Mean Corpuscular Hemoglobin 28.8 L Mean Corpuscular Hemoglobin Concent 34.4 Mean Corpuscular Volume 83.9 Mean Platelet Volume 7.1 L Monocytes # 0.8 Monocytes % 15.9 H Neutrophils # 2.9 Neutrophils % 57.7 Nucleated Red Blood Cells # 0.0 Nucleated Red Blood Cells % 0.0 Platelet Count 101 L Potassium Level 3.6 Red Blood Count 3.90 L Red Cell Distribution Width 17.3 H Sodium Level 141 Total Bilirubin 0.3 Total Protein 5.2 L White Blood Count 5.0 # Medications Medications Current Medications Sodium Chloride (NS) 1,000 ml @ 80 mls/hr [id number] IV Last administered on 21:50; Admin Dose 80 MLS/HR; Start 09/06/16 at 23:30 Bicalutamide (Casodex) 50 mg QAM PO Last administered on 09/21/16 08:58; Admin Dose 50 MG; Start 09/07/16 at 09:00 Docusate Sodium (Colace) 100 mg BID PRN PO CONSTIPATION Last administered on at 22:45; Admin Dose 100 MG; Start 09/07/16 at 00:00 Escitalopram Oxalate (Lexapro) 5 mg DAILY PO Last administered on 09/21/16 08: 49; Admin Dose 5 MG; Start 09/07/16 at 09:00 Megestrol Acetate (Megace Susp) 400 mg BID PO Last administered on 09/21/16 08: 50; Admin Dose 400 MG; Start 09/07/16 at 09:00 Methylnaltrexone [place] (Relistor) 12 mg Q48H SC Last administered on 01:04; Admin Dose 12 MG; Start 09/07/16 at 00:00 Ondansetron HCl (Zofran Tab) 4 mg Q6H PRN PO NAUSEA AND/OR VOMITING Last administered on 09/19/16 05:30; Admin Dose 4 MG; Start 09/07/16 at 00:00 Acetaminophen (Tylenol Tab) 500 mg Q4H PRN PO PAIN AND OR ELEVATED TEMP Last administered on 09/08/16at 21:03; Admin Dose 500 MG; Start 09/07/16 at 21:30 Enoxaparin Sodium (Lovenox) 55 mg Q12H SC Last administered on 09/21/16 13:19; Admin Dose 55 MG; Start 09/09/16 at 12:00 IV Flush (NS 10 ml) 10 ml PRN PRN IV IV PROTOCOL; Start 09/11/16 at 10:00 Calcium/Vitamin D (Oyster Shell/ Vit-D (500/200)) 1 tab BID PO Last administered on 09/21/16 08:49; Admin Dose 1 TAB; Start 09/12/16 at 14:00 Hydromorphone HCl (Dilaudid) 2 mg Q4H PRN PO PAIN Last administered on 21:54; Admin Dose 2 MG; Start 09/16/16 at 22:19 Methadone HCl 1 mg 1 mg Q6 PO Last administered on 09/21/16 17:51; Admin Dose 1 MG; Start 09/16/16 at 19:00 Metronidazole (Flagyl 500 Mg (Pmx)) 100 ml @ 100 mls/hr Q6 IVPB Last administered on 09/21/16 17:51; Admin Dose 100 MLS/HR; Start 09/19/16 at 18:00 IV Flush (NS 10 ml) 10 ml PRN PRN IV IV PROTOCOL; Start 09/21/16 at 12:00 JARAD CHOI MD Sep 21, 2016 23:16
[2016-09-22] MEDS: ENOXAPARIN 60 MG/0.6 ML SYG SC SCH ×3 (00:50→23:58)
[2016-09-22] MEDS: METHADONE (1 MG/1 ML PO SYG) PO SCH ×5 (00:52→23:56)
[2016-09-22] MEDS: metroNIDAZOLE 500 MG/NS (PMX) 100 ML IVPB SCH ×2 (00:52→06:14)
[2016-09-22] MEDS: HYDROmorphONE 2 MG TAB PO PRN ×3 (04:39→17:13)
[2016-09-22 05:53] LABS: ALBUMIN 2.2 g/dl (3.3-4.9)
[2016-09-22 05:56] LABS: ALBUMIN/GLOBULIN RATIO 0.78; BILIRUBIN,INDIRECT 0.2 mg/dl (0-1.1); BILIRUBIN,TOTAL 0.2 mg/dl (0.2-1.3); CREATININE 0.32 mg/dl (0.61-1.24)
[2016-09-22 05:57] LABS: BASOPHILS % 0.4 % (0.0-2.0); CALCIUM 6.9 mg/dl (8.4-10.2); EOSINOPHILS % 0.2 % (0.0-7.0); HEMATOCRIT 30.9 % (42.0-52.0); HEMOGLOBIN 10.3 g/dl (14.0-18.0); LYMPHOCYTES # 1.3 10^3/ul (0.8-2.9); LYMPHOCYTES % 23.6 % (15.0-51.0); MEAN CORPUSCULAR HEMOGLOBIN 28.2 pg (29.0-33.0); MEAN CORPUSCULAR HGB CONC 33.3 g/dl (32.0-37.0); MEAN CORPUSCULAR VOLUME 84.4 fl (82.0-101.0); MEAN PLATELET VOLUME 7.1 fl (7.4-10.4); MONOCYTE # 0.8 10^3/ul (0.3-0.9); MONOCYTES % 15.2 % (0.0-11.0); NEUTROPHIL # 3.3 10^3/ul (1.6-7.5); NEUTROPHILS % 60.6 % (39.0-77.0); PLATELET COUNT 95 10^3/UL (140-440); RED BLOOD COUNT 3.66 10^6/ul (4.70-6.10); RED CELL DISTRIBUTION WIDTH 17.4 % (11.5-14.5); UNCORRECTED WBC 5.4 10^3/ul (4.8-10.8); WHITE BLOOD COUNT 5.4 10^3/ul (4.8-10.8)
[2016-09-22 06:08] LABS: CONDITION 1; LH ANALYZER COMMENTS 1
[2016-09-22] MEDS: PANTOPRAZOLE (EC) 40 MG TAB PO SCH (06:16)
[2016-09-22 06:20] LABS: POTASSIUM 2.8 mmol/L (3.5-5.1)
[2016-09-22] MEDS: POTASSIUM CHLORIDE (SR) 20 MEQ TAB PO SCH ×2 (06:44→11:18)
[2016-09-22 08:43] VITALS: BP 114/72; RESP 18
[2016-09-22] MEDS: CALCIUM/VITAMIN D (500/200) TAB PO SCH ×2 (09:00→19:54)
[2016-09-22] MEDS: MEGESTROL (40 MG/ML) 10ML CUP PO SCH ×2 (09:00→19:54)
[2016-09-22] MEDS: ESCITALOPRAM 10 MG TAB PO SCH (09:04)
[2016-09-22] MEDS: BICALUTAMIDE 50 MG TAB PO SCH (09:10)
--- NOTE | 2016-09-22 11:53 | CONS ---
Date/Time of Note Date/Time of Note DATE: 09/22/16 TIME: 11:53 Assessment/Plan Assessment/Plan Chief Complaint/Hosp Course Metastatic prostate cancer. RE: chemotherapy and steroids - PER PROTOCOL Chemotherapy Docetaxel (Taxotere) 30 mg/m2 IV over 30 minutes once per day on days 1, 8, 15, 22, 29 Prednisone (Sterapred) 5 mg PO BID on days 1 to 42 Supportive medications Dexamethasone (Decadron) 8 mg (route not specified) once 1 hour before Docetaxel (Taxotere) Antiemetics "according to local practice" 42-day cycle for up to 5 cycles ANEMIA POST PRBC MONITOR CLOSELY OBSERVE FOR BLEEDING AND HEMOLYSIS Thrombocytopenia. Continue to monitor platelets. transfuse as needed PANCYTOPENIA MONITOR DECONDITIONING PT Acute on chronic back pain. Problems: Consultation Date/Type/Reason Admit Date/Time Sep 06, 2016 at 22:01 Initial Consult Date 09/08/16 Type of Consultation: Hematology/Oncology 24 HR Interval Summary Free Text/Dictation POST PRBC COUNT HOLDING NO BLEEDING PT IS THINKING RE CHEMO Exam/Review of Systems Vital Signs Vitals Vital Signs Date Time Temp Pulse Resp B/P Pulse Ox O2 Delivery O2 Flow Rate FiO2 09/22/16 08:43 97.9 72 18 114/72 96 09/20/16 20:00 Room Air Intake and Output 09/21/16 09/21/16 09/22/16 14:59 22:59 06:59 Intake Total 600 ml 460 ml 1060 ml Output Total 950 ml Balance 600 ml 460 ml 110 ml Exam Constitutional: alert, oriented Psych: nl mood/affect Head: normocephalic Eyes: EOMI, nl conjunctiva ENMT: nl external ears & nose Neck: non-tender Respiratory: clear to auscultation Cardiovascular: nl pulses Gastrointestinal: soft, tender (diffuse tenderness ) Extremities: normal pulses 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: nl speech Skin: nl turgor Lymph: nontender Results Result Diagram: 09/22/16 0435 09/22/16 0435 Results 24 hrs Laboratory Tests Test 09/22/16 04:35 Alanine Aminotransferase (ALT/SGPT) 25 Albumin 2.2 L Albumin/Globulin Ratio 0.78 Alkaline Phosphatase 1150 H Anion Gap 13 Aspartate Amino Transf (AST/SGOT) 30 Basophils # 0.0 Basophils % 0.4 Blood Morphology Comment Blood Urea Nitrogen 4 L Calcium Level 6.9 L Carbon Dioxide Level 23 Chloride Level 105 Creatinine 0.32 L Direct Bilirubin 0.00 Eosinophils # 0.0 Eosinophils % 0.2 Globulin 2.80 Glucose Level 76 Hematocrit 30.9 L Hemoglobin 10.3 L Indirect Bilirubin 0.2 Lymphocytes # 1.3 Lymphocytes % 23.6 Mean Corpuscular Hemoglobin 28.2 L Mean Corpuscular Hemoglobin Concent 33.3 Mean Corpuscular Volume 84.4 Mean Platelet Volume 7.1 L Monocytes # 0.8 Monocytes % 15.2 H Neutrophils # 3.3 Neutrophils % 60.6 Nucleated Red Blood Cells # 0.0 Nucleated Red Blood Cells % 0.0 Platelet Count 95 L Potassium Level 2.8 *L Red Blood Count 3.66 L Red Cell Distribution Width 17.4 H Sodium Level 138 Total Bilirubin 0.2 Total Protein 5.0 L White Blood Count 5.4 Medications Medications Current Medications Sodium Chloride (NS) 1,000 ml @ 80 mls/hr [id number] IV Last administered on 21:50; Admin Dose 80 MLS/HR; Start 09/06/16 at 23:30 Bicalutamide (Casodex) 50 mg QAM PO Last administered on 09/22/16 09:10; Admin Dose 50 MG; Start 09/07/16 at 09:00 Docusate Sodium (Colace) 100 mg BID PRN PO CONSTIPATION Last administered on at 22:45; Admin Dose 100 MG; Start 09/07/16 at 00:00 Escitalopram Oxalate (Lexapro) 5 mg DAILY PO Last administered on 09/22/16 09: 04; Admin Dose 5 MG; Start 09/07/16 at 09:00 Megestrol Acetate (Megace Susp) 400 mg BID PO Last administered on 09/21/16 08: 50; Admin Dose 400 MG; Start 09/07/16 at 09:00 Methylnaltrexone [place] (Relistor) 12 mg Q48H SC Last administered on 01:04; Admin Dose 12 MG; Start 09/07/16 at 00:00 Ondansetron HCl (Zofran Tab) 4 mg Q6H PRN PO NAUSEA AND/OR VOMITING Last administered on 09/19/16 05:30; Admin Dose 4 MG; Start 09/07/16 at 00:00 Acetaminophen (Tylenol Tab) 500 mg Q4H PRN PO PAIN AND OR ELEVATED TEMP Last administered on 09/08/16at 21:03; Admin Dose 500 MG; Start 09/07/16 at 21:30 Enoxaparin Sodium (Lovenox) 55 mg Q12H SC Last administered on 09/22/16 00:50; Admin Dose 55 MG; Start 09/09/16 at 12:00 IV Flush (NS 10 ml) 10 ml PRN PRN IV IV PROTOCOL; Start 09/11/16 at 10:00 Calcium/Vitamin D ([place]yster [place]/ Vit-D (500/200)) 1 tab BID PO Last administered on 09/21/16 08:49; Admin Dose 1 TAB; Start 09/12/16 at 14:00 Hydromorphone HCl (Dilaudid) 2 mg Q4H PRN PO PAIN Last administered on 09:05; Admin Dose 2 MG; Start 09/16/16 at 22:19 Methadone HCl (Methadone Liq (Ped)) 1 mg Q6 PO Last administered on 09/22/16 06 :14; Admin Dose 1 MG; Start 09/16/16 at 19:00 IV Flush (NS 10 ml) 10 ml PRN PRN IV IV PROTOCOL; Start 09/21/16 at 12:00 Metronidazole (Flagyl) 500 mg QID PO ; Start 09/22/16 at 13:00 JARAD HCOI MD Sep 22, 2016 11:53
[2016-09-22] MEDS: metroNIDAZOLE 500 MG TAB PO SCH ×3 (12:10→19:54)
--- NOTE | 2016-09-22 12:44 | PN ---
Date/Time of Note Date/Time of Note DATE: 09/22/16 TIME: 12:44 Assessment/Plan VTE Prophylaxis VTE Prophylaxis Intervention: other Lines/Catheters IV Catheter Type (from Nrs): Saline Lock Urinary Cath still in place: Yes Assessment/Plan Chief Complaint/Hosp Course 1) Hypotension - stable 2) Dehydration - IV fluids 3) Anemia - monitor H/H 4) Intractable pain - pain control 5) Prostate carcinoma - sp Radiation therapy by Dr Ghassan Hylton - oncology consult appreciated- Dr Silva 6) Thrombocytopenia - lovenox on hold 7) C. diff colitis - flagyl 500mg IV q6hr Patient and family may be ready for hospice Problems: Subjective 24 Hr Interval Summary Free Text/Dictation Patient has no complaints Exam/Review of Systems Vital Signs Vitals Vital Signs Date Time Temp Pulse Resp B/P Pulse Ox O2 Delivery O2 Flow Rate FiO2 09/22/16 08:43 97.9 72 18 114/72 96 09/20/16 20:00 Room Air Intake and Output 09/21/16 09/21/16 09/22/16 15:00 23:00 07:00 Intake Total 600 ml 460 ml 1060 ml Output Total 950 ml Balance 600 ml 460 ml 110 ml Results Result Diagram: 09/22/16 0435 09/22/16 0435 Results 24 hrs Laboratory Tests Test 09/22/16 04:35 Alanine Aminotransferase (ALT/SGPT) 25 Albumin 2.2 L Albumin/Globulin Ratio 0.78 Alkaline Phosphatase 1150 H Anion Gap 13 Aspartate Amino Transf (AST/SGOT) 30 Basophils # 0.0 Basophils % 0.4 Blood Morphology Comment Blood Urea Nitrogen 4 L Calcium Level 6.9 L Carbon Dioxide Level 23 Chloride Level 105 Creatinine 0.32 L Direct Bilirubin 0.00 Eosinophils # 0.0 Eosinophils % 0.2 Globulin 2.80 Glucose Level 76 Hematocrit 30.9 L Hemoglobin 10.3 L Indirect Bilirubin 0.2 Lymphocytes # 1.3 Lymphocytes % 23.6 Mean Corpuscular Hemoglobin 28.2 L Mean Corpuscular Hemoglobin Concent 33.3 Mean Corpuscular Volume 84.4 Mean Platelet Volume 7.1 L Monocytes # 0.8 Monocytes % 15.2 H Neutrophils # 3.3 Neutrophils % 60.6 Nucleated Red Blood Cells # 0.0 Nucleated Red Blood Cells % 0.0 Platelet Count 95 L Potassium Level 2.8 *L Red Blood Count 3.66 L Red Cell Distribution Width 17.4 H Sodium Level 138 Total Bilirubin 0.2 Total Protein 5.0 L White Blood Count 5.4 Medications Medications Current Medications Sodium Chloride (NS) 1,000 ml @ 80 mls/hr [id number] IV Last administered on 21:50; Admin Dose 80 MLS/HR; Start 09/06/16 at 23:30 Bicalutamide (Casodex) 50 mg QAM PO Last administered on 09/22/16 09:10; Admin Dose 50 MG; Start 09/07/16 at 09:00 Docusate Sodium (Colace) 100 mg BID PRN PO CONSTIPATION Last administered on 22:45; Admin Dose 100 MG; Start 09/07/16 at 00:00 Escitalopram Oxalate (Lexapro) 5 mg DAILY PO Last administered on 09/22/16 09: 04; Admin Dose 5 MG; Start 09/07/16 at 09:00 Megestrol Acetate (Megace Susp) 400 mg BID PO Last administered on 09/21/16 08: 50; Admin Dose 400 MG; Start 09/07/16 at 09:00 Methylnaltrexone [place] (Relistor) 12 mg Q48H SC Last administered on at 01:04; Admin Dose 12 MG; Start 09/07/16 at 00:00 Ondansetron HCl (Zofran Tab) 4 mg Q6H PRN PO NAUSEA AND/OR VOMITING Last administered on 09/19/16 05:30; Admin Dose 4 MG; Start 09/07/16 at 00:00 Acetaminophen (Tylenol Tab) 500 mg Q4H PRN PO PAIN AND OR ELEVATED TEMP Last administered on 09/08/16at 21:03; Admin Dose 500 MG; Start 09/07/16 at 21:30 Enoxaparin Sodium (Lovenox) 55 mg Q12H SC Last administered on 09/22/16 12:16; Admin Dose 55 MG; Start 09/09/16 at 12:00 IV Flush (NS 10 ml) 10 ml PRN PRN IV IV PROTOCOL; Start 09/11/16 at 10:00 Calcium/Vitamin D (Oyster Shell/ Vit-D (500/200)) 1 tab BID PO Last administered on 1/4/17at 08:49; Admin Dose 1 TAB; Start 09/12/16 at 14:00 Hydromorphone HCl (Dilaudid) 2 mg Q4H PRN PO PAIN Last administered on 09:05; Admin Dose 2 MG; Start 09/16/16 at 22:19 Methadone HCl (Methadone Liq (Ped)) 1 mg Q6 PO Last administered on 09/22/16 12 :10; Admin Dose 1 MG; Start 09/16/16 at 19:00 IV Flush (NS 10 ml) 10 ml PRN PRN IV IV PROTOCOL; Start 09/21/16 at 12:00 Metronidazole (Flagyl) 500 mg QID PO Last administered on 09/22/16 12:10; Admin Dose 500 MG; Start 09/22/16 at 13:00 NASREEN DAMON Sep 22, 2016 12:44
[2016-09-22] MEDS: SOD CHLORIDE 0.9% 1,000 ML IV SCH ×2 (17:15→23:56)
[2016-09-22 21:35] VITALS: BP 110/72; RESP 20
[2016-09-22] MEDS: METHYLNALTREXONE 12 MG/0.6 ML VIAL SC SCH (23:11)
[2016-09-23] MEDS: HYDROmorphONE 2 MG TAB PO PRN ×4 (01:18→18:34)
[2016-09-23] MEDS: METHADONE (1 MG/1 ML PO SYG) PO SCH ×3 (04:56→18:34)
[2016-09-23] MEDS: PANTOPRAZOLE (EC) 40 MG TAB PO SCH (04:56)
[2016-09-23 05:49] LABS: ALBUMIN 2.4 g/dl (3.3-4.9); POTASSIUM 3.9 mmol/L (3.5-5.1)
[2016-09-23 05:51] LABS: BILIRUBIN,INDIRECT 0.3 mg/dl (0-1.1); BILIRUBIN,TOTAL 0.3 mg/dl (0.2-1.3); CREATININE 0.39 mg/dl (0.61-1.24)
[2016-09-23 05:52] LABS: ALBUMIN/GLOBULIN RATIO 0.8; TOTAL PROTEIN 5.4 g/dl (6.1-8.1)
[2016-09-23 05:53] LABS: CALCIUM 7.6 mg/dl (8.4-10.2)
[2016-09-23 05:54] LABS: BASOPHILS % 0.4 % (0.0-2.0); EOSINOPHILS % 0.2 % (0.0-7.0); HEMATOCRIT 34.3 % (42.0-52.0); HEMOGLOBIN 11.7 g/dl (14.0-18.0); LYMPHOCYTES # 1.4 10^3/ul (0.8-2.9); LYMPHOCYTES % 20.4 % (15.0-51.0); MEAN CORPUSCULAR HEMOGLOBIN 28.5 pg (29.0-33.0); MEAN CORPUSCULAR HGB CONC 34.1 g/dl (32.0-37.0); MEAN CORPUSCULAR VOLUME 83.7 fl (82.0-101.0); MEAN PLATELET VOLUME 7.4 fl (7.4-10.4); MONOCYTE # 0.8 10^3/ul (0.3-0.9); MONOCYTES % 12.1 % (0.0-11.0); NEUTROPHIL # 4.5 10^3/ul (1.6-7.5); NEUTROPHILS % 66.9 % (39.0-77.0); PLATELET COUNT 103 10^3/UL (140-440); RED CELL DISTRIBUTION WIDTH 17.7 % (11.5-14.5); UNCORRECTED WBC 6.7 10^3/ul (4.8-10.8); WHITE BLOOD COUNT 6.7 10^3/ul (4.8-10.8)
[2016-09-23 05:55] LABS: CONDITION 1
[2016-09-23 05:56] LABS: LH ANALYZER COMMENTS 1
[2016-09-23 07:49] VITALS: BP 113/76; RESP 20
[2016-09-23] MEDS: metroNIDAZOLE 500 MG TAB PO SCH ×4 (08:50→21:46)
[2016-09-23] MEDS: CALCIUM/VITAMIN D (500/200) TAB PO SCH ×2 (08:50→21:46)
[2016-09-23] MEDS: ESCITALOPRAM 10 MG TAB PO SCH (08:50)
[2016-09-23] MEDS: MEGESTROL (40 MG/ML) 10ML CUP PO SCH ×2 (08:50→21:47)
[2016-09-23] MEDS: BICALUTAMIDE 50 MG TAB PO SCH (08:52)
--- NOTE | 2016-09-23 09:42 | CONS ---
Date/Time of Note Date/Time of Note DATE: 09/23/16 TIME: 09:41 Assessment/Plan Assessment/Plan Chief Complaint/Hosp Course Metastatic prostate cancer. RE: chemotherapy and steroids - PER PROTOCOL Chemotherapy Docetaxel (Taxotere) 30 mg/m2 IV over 30 minutes once per day on days 1, 8, 15, 22, 29 Prednisone (Sterapred) 5 mg PO BID on days 1 to 42 Supportive medications Dexamethasone (Decadron) 8 mg (route not specified) once 1 hour before Docetaxel (Taxotere) Antiemetics "according to local practice" 42-day cycle for up to 5 cycles ANEMIA POST PRBC MONITOR CLOSELY OBSERVE FOR BLEEDING AND HEMOLYSIS Thrombocytopenia. Continue to monitor platelets. transfuse as needed PANCYTOPENIA MONITOR DECONDITIONING PT Acute on chronic back pain. Problems: Consultation Date/Type/Reason Admit Date/Time Sep 06, 2016 at 22:01 Initial Consult Date 09/08/16 Type of Consultation: Hematology/Oncology Reason for Consultation PROSTATE CANCER Referring Provider: TIMOTHY MARAVILLA MD 24 HR Interval Summary Free Text/Dictation PT IS THINKING RE CHEMO FAMILY AT BEDSIDE Exam/Review of Systems Vital Signs Vitals Vital Signs Date Time Temp Pulse Resp B/P Pulse Ox O2 Delivery O2 Flow Rate FiO2 09/23/16 07:49 97.1 79 20 113/76 98 09/20/16 20:00 Room Air Intake and Output 09/22/16 09/22/16 09/23/16 15:00 23:00 07:00 Intake Total 1300 ml 1410 ml Output Total 1000 ml 1600 ml Balance 300 ml -190 ml Exam Constitutional: alert, oriented Psych: nl mood/affect Head: normocephalic Eyes: EOMI, nl conjunctiva ENMT: nl external ears & nose Neck: non-tender Respiratory: clear to auscultation Cardiovascular: nl pulses Gastrointestinal: soft, tender (diffuse tenderness ) Extremities: normal pulses 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: nl speech Skin: nl turgor Lymph: nontender Results Result Diagram: 09/23/16 0415 09/23/16 0415 Results 24 hrs Laboratory Tests Test 09/23/16 04:15 Alanine Aminotransferase (ALT/SGPT) 24 Albumin 2.4 L Albumin/Globulin Ratio 0.80 Alkaline Phosphatase 1363 H Anion Gap 12 Aspartate Amino Transf (AST/SGOT) 52 #H Basophils # 0.0 Basophils % 0.4 Blood Morphology Comment Blood Urea Nitrogen 3 L Calcium Level 7.6 L Carbon Dioxide Level 26 Chloride Level 105 Creatinine 0.39 L Direct Bilirubin 0.00 Eosinophils # 0.0 Eosinophils % 0.2 Globulin 3.00 Glucose Level 80 Hematocrit 34.3 L Hemoglobin 11.7 L Indirect Bilirubin 0.3 Lymphocytes # 1.4 Lymphocytes % 20.4 Mean Corpuscular Hemoglobin 28.5 L Mean Corpuscular Hemoglobin Concent 34.1 Mean Corpuscular Volume 83.7 Mean Platelet Volume 7.4 Monocytes # 0.8 Monocytes % 12.1 H Neutrophils # 4.5 Neutrophils % 66.9 Nucleated Red Blood Cells # 0.0 Nucleated Red Blood Cells % 0.0 Platelet Count 103 L Potassium Level 3.9 Red Blood Count 4.10 L Red Cell Distribution Width 17.7 H Sodium Level 139 Total Bilirubin 0.3 Total Protein 5.4 L White Blood Count 6.7 # Medications Medications Current Medications Sodium Chloride (NS) 1,000 ml @ 80 mls/hr [id number] IV Last administered on 23:56; Admin Dose 80 MLS/HR; Start 09/06/16 at 23:30 Bicalutamide (Casodex) 50 mg QAM PO Last administered on 09/23/16 08:52; Admin Dose 50 MG; Start 09/07/16 at 09:00 Docusate Sodium (Colace) 100 mg BID PRN PO CONSTIPATION Last administered on 22:45; Admin Dose 100 MG; Start 09/07/16 at 00:00 Escitalopram Oxalate (Lexapro) 5 mg DAILY PO Last administered on 09/23/16 08: 50; Admin Dose 5 MG; Start 09/07/16 at 09:00 Megestrol Acetate (Megace Susp) 400 mg BID PO Last administered on 09/23/16 08: 50; Admin Dose 400 MG; Start 09/07/16 at 09:00 Methylnaltrexone [place] (Relistor) 12 mg Q48H SC Last administered on 01:04; Admin Dose 12 MG; Start 09/07/16 at 00:00 Ondansetron HCl (Zofran Tab) 4 mg Q6H PRN PO NAUSEA AND/OR VOMITING Last administered on 09/19/16 05:30; Admin Dose 4 MG; Start 09/07/16 at 00:00 Acetaminophen (Tylenol Tab) 500 mg Q4H PRN PO PAIN AND OR ELEVATED TEMP Last administered on 09/08/16at 21:03; Admin Dose 500 MG; Start 09/07/16 at 21:30 Enoxaparin Sodium (Lovenox) 55 mg Q12H SC Last administered on 09/22/16 23:58; Admin Dose 55 MG; Start 09/09/16 at 12:00 IV Flush (NS 10 ml) 10 ml PRN PRN IV IV PROTOCOL; Start 09/11/16 at 10:00 Calcium/Vitamin D (Oyster Shell/ Vit-D (500/200)) 1 tab BID PO Last administered on 09/23/16 08:50; Admin Dose 1 TAB; Start 09/12/16 at 14:00 Hydromorphone HCl (Dilaudid) 2 mg Q4H PRN PO PAIN Last administered on 06:39; Admin Dose 2 MG; Start 09/16/16 at 22:19 Methadone HCl (Methadone Liq (Ped)) 1 mg Q6 PO Last administered on 09/23/16 04 :56; Admin Dose 1 MG; Start 09/16/16 at 19:00 IV Flush (NS 10 ml) 10 ml PRN PRN IV IV PROTOCOL; Start 09/21/16 at 12:00 Metronidazole (Flagyl) 500 mg QID PO Last administered on 09/23/16 08:50; Admin Dose 500 MG; Start 09/22/16 at 13:00 JARAD CHOI MD Sep 23, 2016 09:42
[2016-09-23] MEDS: ENOXAPARIN 60 MG/0.6 ML SYG SC SCH (12:45)
[2016-09-23] MEDS ORDERED: HYDROmorphONE 1 MG/ML SYG IV STA (13:48)
[2016-09-23] MEDS: SOD CHLORIDE 0.9% 1,000 ML IV SCH (14:02)
--- NOTE | 2016-09-23 15:19 | PN ---
Date/Time of Note Date/Time of Note DATE: 09/23/16 TIME: 15:19 Assessment/Plan VTE Prophylaxis VTE Prophylaxis Intervention: other Lines/Catheters IV Catheter Type (from Nrsg): Saline Lock Urinary Cath still in place: Yes Reason Cath still needed: skin wounds contaminated by urine Assessment/Plan Chief Complaint/Hosp Course 1) Hypotension - stable 2) Dehydration - IV fluids 3) Anemia - monitor H/H 4) Intractable pain - pain control 5) Prostate carcinoma - sp Radiation therapy by Dr Ghassan Hylton - oncology consult appreciated- Dr Silva 6) Thrombocytopenia - lovenox on hold 7) C. diff colitis - flagyl 500mg IV q6hr Patient and family may be ready for hospice Problems: Subjective 24 Hr Interval Summary Free Text/Dictation Patient had more pain but was given more pain medication. Exam/Review of Systems Vital Signs Vitals Vital Signs Date Time Temp Pulse Resp B/P Pulse Ox O2 Delivery O2 Flow Rate FiO2 09/23/16 07:49 97.1 79 20 113/76 98 09/20/16 20:00 Room Air Intake and Output 09/22/16 09/22/16 09/23/16 15:00 23:00 07:00 Intake Total 1300 ml 1410 ml Output Total 1000 ml 1600 ml Balance 300 ml -190 ml Exam Head: atraumatic, normocephalic Neck: supple Respiratory: clear to auscultation Cardiovascular: regular rate and rhythm Gastrointestinal: non-tender, soft Results Result Diagram: 09/23/16 0415 09/23/16 0415 Results 24 hrs Laboratory Tests Test 09/23/16 04:15 Alanine Aminotransferase (ALT/SGPT) 24 Albumin 2.4 L Albumin/Globulin Ratio 0.80 Alkaline Phosphatase 1363 H Anion Gap 12 Aspartate Amino Transf (AST/SGOT) 52 #H Basophils # 0.0 Basophils % 0.4 Blood Morphology Comment Blood Urea Nitrogen 3 L Calcium Level 7.6 L Carbon Dioxide Level 26 Chloride Level 105 Creatinine 0.39 L Direct Bilirubin 0.00 Eosinophils # 0.0 Eosinophils % 0.2 Globulin 3.00 Glucose Level 80 Hematocrit 34.3 L Hemoglobin 11.7 L Indirect Bilirubin 0.3 Lymphocytes # 1.4 Lymphocytes % 20.4 Mean Corpuscular Hemoglobin 28.5 L Mean Corpuscular Hemoglobin Concent 34.1 Mean Corpuscular Volume 83.7 Mean Platelet Volume 7.4 Monocytes # 0.8 Monocytes % 12.1 H Neutrophils # 4.5 Neutrophils % 66.9 Nucleated Red Blood Cells # 0.0 Nucleated Red Blood Cells % 0.0 Platelet Count 103 L Potassium Level 3.9 Red Blood Count 4.10 L Red Cell Distribution Width 17.7 H Sodium Level 139 Total Bilirubin 0.3 Total Protein 5.4 L White Blood Count 6.7 # Medications Medications Current Medications Sodium Chloride (NS) 1,000 ml @ 80 mls/hr [id number] IV Last administered on 14:02; Admin Dose 80 MLS/HR; Start 09/06/16 at 23:30 Bicalutamide (Casodex) 50 mg QAM PO Last administered on 09/23/16 08:52; Admin Dose 50 MG; Start 09/07/16 at 09:00 Docusate Sodium (Colace) 100 mg BID PRN PO CONSTIPATION Last administered on 22:45; Admin Dose 100 MG; Start 09/07/16 at 00:00 Escitalopram Oxalate (Lexapro) 5 mg DAILY PO Last administered on 09/23/16 08: 50; Admin Dose 5 MG; Start 09/07/16 at 09:00 Megestrol Acetate (Megace Susp) 400 mg BID PO Last administered on 09/23/16 08: 50; Admin Dose 400 MG; Start 09/07/16 at 09:00 Methylnaltrexone [place] (Relistor) 12 mg Q48H SC Last administered on 01:04; Admin Dose 12 MG; Start 09/07/16 at 00:00 Ondansetron HCl (Zofran Tab) 4 mg Q6H PRN PO NAUSEA AND/OR VOMITING Last administered on 09/19/16 05:30; Admin Dose 4 MG; Start 09/07/16 at 00:00 Acetaminophen (Tylenol Tab) 500 mg Q4H PRN PO PAIN AND OR ELEVATED TEMP Last administered on 09/08/16at 21:03; Admin Dose 500 MG; Start 09/07/16 at 21:30 Enoxaparin Sodium (Lovenox) 55 mg Q12H SC Last administered on 09/23/16 12:45; Admin Dose 55 MG; Start 09/09/16 at 12:00 IV Flush (NS 10 ml) 10 ml PRN PRN IV IV PROTOCOL; Start 09/11/16 at 10:00 Calcium/Vitamin D (Oyster Shell/ Vit-D (500/200)) 1 tab BID PO Last administered on 09/23/16 08:50; Admin Dose 1 TAB; Start 09/12/16 at 14:00 Hydromorphone HCl (Dilaudid) 2 mg Q4H PRN PO PAIN Last administered on 12:41; Admin Dose 2 MG; Start 09/16/16 at 22:19 IV Flush (NS 10 ml) 10 ml PRN PRN IV IV PROTOCOL; Start 09/21/16 at 12:00 Metronidazole (Flagyl) 500 mg QID PO Last administered on 09/23/16 12:01; Admin Dose 500 MG; Start 09/22/16 at 13:00 Methadone HCl (Methadone Liq (Ped)) 2 mg Q6 PO ; Start 09/23/16 at 18:00 NASREEN DAMON Sep 23, 2016 15:19
[2016-09-23 20:15] VITALS: BP 130/62; RESP 20
[2016-09-24] MEDS: METHADONE (1 MG/1 ML PO SYG) PO SCH ×4 (00:26→17:46)
[2016-09-24] MEDS: ENOXAPARIN 60 MG/0.6 ML SYG SC SCH ×2 (00:29→12:59)
[2016-09-24] MEDS: SOD CHLORIDE 0.9% 1,000 ML IV SCH ×2 (00:31→15:44)
[2016-09-24] MEDS: HYDROmorphONE 2 MG TAB PO PRN ×2 (04:33→09:10)
[2016-09-24] MEDS: PANTOPRAZOLE (EC) 40 MG TAB PO SCH (04:33)
[2016-09-24 06:06] LABS: EOSINOPHILS % 0.1 % (0.0-7.0); HEMATOCRIT 30.3 % (42.0-52.0); HEMOGLOBIN 10.5 g/dl (14.0-18.0); LYMPHOCYTES # 1.2 10^3/ul (0.8-2.9); LYMPHOCYTES % 17.5 % (15.0-51.0); MEAN CORPUSCULAR HGB CONC 34.6 g/dl (32.0-37.0); MEAN CORPUSCULAR VOLUME 84.1 fl (82.0-101.0); MEAN PLATELET VOLUME 7.2 fl (7.4-10.4); MONOCYTE # 0.8 10^3/ul (0.3-0.9); MONOCYTES % 11.8 % (0.0-11.0); NEUTROPHILS % 70.6 % (39.0-77.0); PLATELET COUNT 95 10^3/UL (140-440); RED CELL DISTRIBUTION WIDTH 18.1 % (11.5-14.5); UNCORRECTED WBC 7.1 10^3/ul (4.8-10.8); WHITE BLOOD COUNT 7.1 10^3/ul (4.8-10.8)
[2016-09-24 06:27] LABS: CONDITION 1; LH ANALYZER COMMENTS 1
[2016-09-24 06:50] LABS: ALBUMIN 2.2 g/dl (3.3-4.9)
[2016-09-24 06:51] LABS: POTASSIUM 3.9 mmol/L (3.5-5.1)
[2016-09-24 06:53] LABS: BILIRUBIN,INDIRECT 0.4 mg/dl (0-1.1); BILIRUBIN,TOTAL 0.4 mg/dl (0.2-1.3); CREATININE 0.3 mg/dl (0.61-1.24)
[2016-09-24 06:54] LABS: ALBUMIN/GLOBULIN RATIO 0.73; CALCIUM 7.4 mg/dl (8.4-10.2); TOTAL PROTEIN 5.2 g/dl (6.1-8.1)
[2016-09-24 07:00] VITALS: BP 100/66; RESP 20
[2016-09-24] MEDS: ESCITALOPRAM 10 MG TAB PO SCH (09:09)
[2016-09-24] MEDS: metroNIDAZOLE 500 MG TAB PO SCH ×4 (09:09→21:29)
[2016-09-24] MEDS: MEGESTROL (40 MG/ML) 10ML CUP PO SCH ×2 (09:09→21:29)
[2016-09-24] MEDS: CALCIUM/VITAMIN D (500/200) TAB PO SCH ×2 (09:09→21:29)
[2016-09-24] MEDS: BICALUTAMIDE 50 MG TAB PO SCH (09:15)
--- NOTE | 2016-09-24 12:10 | PN ---
Date/Time of Note Date/Time of Note DATE: 09/24/16 TIME: 12:09 Assessment/Plan VTE Prophylaxis VTE Prophylaxis Intervention: LMWH Lines/Catheters IV Catheter Type (from Nrsg): Saline Lock Urinary Cath still in place: Yes Reason Cath still needed: skin wounds contaminated by urine Assessment/Plan Chief Complaint/Hosp Course 1) Hypotension - stable 2) Dehydration - IV fluids 3) Anemia - monitor H/H 4) Intractable pain - pain control 5) Prostate carcinoma - sp Radiation therapy by Dr Ghassan Hylton - oncology consult appreciated- Dr Silva 6) Thrombocytopenia - monitor 7) C. diff colitis - flagyl 500mg IV q6hr Patient and family may be ready for hospice Problems: Subjective 24 Hr Interval Summary Free Text/Dictation Patient has no complaints Exam/Review of Systems Vital Signs Vitals Vital Signs Date Time Temp Pulse Resp B/P Pulse Ox O2 Delivery O2 Flow Rate FiO2 09/24/16 07:00 98.3 79 20 100/66 98 09/20/16 20:00 Room Air Intake and Output 09/23/16 09/23/16 09/24/16 15:00 23:00 07:00 Intake Total 400 ml 1760 ml Output Total 1100 ml 1100 ml Balance -700 ml 660 ml Exam Constitutional: well developed Head: atraumatic, normocephalic Neck: supple Respiratory: clear to auscultation Cardiovascular: regular rate and rhythm Gastrointestinal: non-tender, soft Extremities: normal pulses Results Result Diagram: 09/24/16 0443 09/24/16 0443 Results 24 hrs Laboratory Tests Test 09/24/16 04:43 Alanine Aminotransferase (ALT/SGPT) 24 Albumin 2.2 L Albumin/Globulin Ratio 0.73 Alkaline Phosphatase 1329 H Anion Gap 10 Aspartate Amino Transf (AST/SGOT) 65 H Basophils # 0.0 Basophils % 0.0 Blood Morphology Comment Blood Urea Nitrogen 4 L Calcium Level 7.4 L Carbon Dioxide Level 24 Chloride Level 104 Creatinine 0.30 L Direct Bilirubin 0.00 Eosinophils # 0.0 Eosinophils % 0.1 Globulin 3.00 Glucose Level 81 Hematocrit 30.3 L Hemoglobin 10.5 L Indirect Bilirubin 0.4 Lymphocytes # 1.2 Lymphocytes % 17.5 Mean Corpuscular Hemoglobin 29.0 Mean Corpuscular Hemoglobin Concent 34.6 Mean Corpuscular Volume 84.1 Mean Platelet Volume 7.2 L Monocytes # 0.8 Monocytes % 11.8 H Neutrophils # 5.0 Neutrophils % 70.6 Nucleated Red Blood Cells # 0.0 Nucleated Red Blood Cells % 0.0 Platelet Count 95 L Potassium Level 3.9 Red Blood Count 3.60 L Red Cell Distribution Width 18.1 H Sodium Level 134 L Total Bilirubin 0.4 Total Protein 5.2 L White Blood Count 7.1 Medications Medications Current Medications Sodium Chloride (NS) 1,000 ml @ 80 mls/hr [id number] IV Last administered on 00:31; Admin Dose 80 MLS/HR; Start 09/06/16 at 23:30 Bicalutamide (Casodex) 50 mg QAM PO Last administered on 09/24/16 09:15; Admin Dose 50 MG; Start 09/07/16 at 09:00 Docusate Sodium (Colace) 100 mg BID PRN PO CONSTIPATION Last administered on 22:45; Admin Dose 100 MG; Start 09/07/16 at 00:00 Escitalopram Oxalate (Lexapro) 5 mg DAILY PO Last administered on 09/24/16 09: 09; Admin Dose 5 MG; Start 09/07/16 at 09:00 Megestrol Acetate (Megace Susp) 400 mg BID PO Last administered on 09/24/16 09: 09; Admin Dose 400 MG; Start 09/07/16 at 09:00 Methylnaltrexone [place] (Relistor) 12 mg Q48H SC Last administered on at 01:04; Admin Dose 12 MG; Start 09/07/16 at 00:00 Ondansetron HCl (Zofran Tab) 4 mg Q6H PRN PO NAUSEA AND/OR VOMITING Last administered on 09/19/16 05:30; Admin Dose 4 MG; Start 09/07/16 at 00:00 Acetaminophen (Tylenol Tab) 500 mg Q4H PRN PO PAIN AND OR ELEVATED TEMP Last administered on 09/08/16at 21:03; Admin Dose 500 MG; Start 09/07/16 at 21:30 Enoxaparin Sodium (Lovenox) 55 mg Q12H SC Last administered on 09/24/16 00:29; Admin Dose 55 MG; Start 09/09/16 at 12:00 IV Flush (NS 10 ml) 10 ml PRN PRN IV IV PROTOCOL; Start 09/11/16 at 10:00 Calcium/Vitamin D (Oyster Shell/ Vit-D (500/200)) 1 tab BID PO Last administered on 09/24/16 09:09; Admin Dose 1 TAB; Start 09/12/16 at 14:00 IV Flush (NS 10 ml) 10 ml PRN PRN IV IV PROTOCOL; Start 09/21/16 at 12:00 Metronidazole (Flagyl) 500 mg QID PO Last administered on 09/24/16 09:09; Admin Dose 500 MG; Start 09/22/16 at 13:00 Methadone HCl (Methadone Liq (Ped)) 2 mg Q6 PO Last administered on 09/24/16 06 :20; Admin Dose 2 MG; Start 09/23/16 at 18:00 Hydromorphone HCl (Dilaudid) 1 mg Q3H PRN IV PAIN; Start 09/24/16 at 10:00 NASREEN DAMON Sep 24, 2016 12:10
--- NOTE | 2016-09-24 13:06 | CONS ---
Date/Time of Note Date/Time of Note DATE: 09/24/16 TIME: 13:06 Assessment/Plan Assessment/Plan Chief Complaint/Hosp Course Metastatic prostate cancer. RE: chemotherapy and steroids - PER PROTOCOL Chemotherapy Docetaxel (Taxotere) 30 mg/m2 IV over 30 minutes once per day on days 1, 8, 15, 22, 29 Prednisone (Sterapred) 5 mg PO BID on days 1 to 42 Supportive medications Dexamethasone (Decadron) 8 mg (route not specified) once 1 hour before Docetaxel (Taxotere) Antiemetics "according to local practice" 42-day cycle for up to 5 cycles ANEMIA POST PRBC MONITOR CLOSELY OBSERVE FOR BLEEDING AND HEMOLYSIS Thrombocytopenia. Continue to monitor platelets. transfuse as needed PANCYTOPENIA MONITOR DECONDITIONING PT Acute on chronic back pain. Problems: Consultation Date/Type/Reason Admit Date/Time Sep 06, 2016 at 22:01 Initial Consult Date 09/08/16 Type of Consultation: Hematology/Oncology Reason for Consultation PROSTATE CANCER Referring Provider: TIMOTHY MARAVILLA MD 24 HR Interval Summary Free Text/Dictation ALL NOTED NO NEW EVENTS VERY WEAK Exam/Review of Systems Vital Signs Vitals Vital Signs Date Time Temp Pulse Resp B/P Pulse Ox O2 Delivery O2 Flow Rate FiO2 09/24/16 07:00 98.3 79 20 100/66 98 09/20/16 20:00 Room Air Intake and Output 09/23/16 09/23/16 09/24/16 15:00 23:00 07:00 Intake Total 400 ml 1760 ml Output Total 1100 ml 1100 ml Balance -700 ml 660 ml Exam Constitutional: alert, oriented Psych: nl mood/affect Head: normocephalic Eyes: EOMI, nl conjunctiva ENMT: nl external ears & nose Neck: non-tender Respiratory: clear to auscultation Cardiovascular: nl pulses Gastrointestinal: soft, tender (diffuse tenderness ) Extremities: normal pulses 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: nl speech Skin: nl turgor Lymph: nontender Results Result Diagram: 09/24/1644209/24/16442 Results 24 hrs Laboratory Tests Test 09/24/16 04:43 Alanine Aminotransferase (ALT/SGPT) 24 Albumin 2.2 L Albumin/Globulin Ratio 0.73 Alkaline Phosphatase 1329 H Anion Gap 10 Aspartate Amino Transf (AST/SGOT) 65 H Basophils # 0.0 Basophils % 0.0 Blood Morphology Comment Blood Urea Nitrogen 4 L Calcium Level 7.4 L Carbon Dioxide Level 24 Chloride Level 104 Creatinine 0.30 L Direct Bilirubin 0.00 Eosinophils # 0.0 Eosinophils % 0.1 Globulin 3.00 Glucose Level 81 Hematocrit 30.3 L Hemoglobin 10.5 L Indirect Bilirubin 0.4 Lymphocytes # 1.2 Lymphocytes % 17.5 Mean Corpuscular Hemoglobin 29.0 Mean Corpuscular Hemoglobin Concent 34.6 Mean Corpuscular Volume 84.1 Mean Platelet Volume 7.2 L Monocytes # 0.8 Monocytes % 11.8 H Neutrophils # 5.0 Neutrophils % 70.6 Nucleated Red Blood Cells # 0.0 Nucleated Red Blood Cells % 0.0 Platelet Count 95 L Potassium Level 3.9 Red Blood Count 3.60 L Red Cell Distribution Width 18.1 H Sodium Level 134 L Total Bilirubin 0.4 Total Protein 5.2 L White Blood Count 7.1 Medications Medications Current Medications Sodium Chloride (NS) 1,000 ml @ 80 mls/hr [id number] IV Last administered on 00:31; Admin Dose 80 MLS/HR; Start 09/06/16 at 23:30 Bicalutamide (Casodex) 50 mg QAM PO Last administered on 09/24/16 09:15; Admin Dose 50 MG; Start 09/07/16 at 09:00 Docusate Sodium (Colace) 100 mg BID PRN PO CONSTIPATION Last administered on at 22:45; Admin Dose 100 MG; Start 09/07/16 at 00:00 Escitalopram Oxalate (Lexapro) 5 mg DAILY PO Last administered on 09/24/16 09: 09; Admin Dose 5 MG; Start 09/07/16 at 09:00 Megestrol Acetate (Megace Susp) 400 mg BID PO Last administered on 09/24/16 09: 09; Admin Dose 400 MG; Start 09/07/16 at 09:00 Methylnaltrexone [place] (Relistor) 12 mg Q48H SC Last administered on 01:04; Admin Dose 12 MG; Start 09/07/16 at 00:00 Ondansetron HCl (Zofran Tab) 4 mg Q6H PRN PO NAUSEA AND/OR VOMITING Last administered on 09/19/16 05:30; Admin Dose 4 MG; Start 09/07/16 at 00:00 Acetaminophen (Tylenol Tab) 500 mg Q4H PRN PO PAIN AND OR ELEVATED TEMP Last administered on 09/08/16at 21:03; Admin Dose 500 MG; Start 09/07/16 at 21:30 Enoxaparin Sodium (Lovenox) 55 mg Q12H SC Last administered on 09/24/16 12:59; Admin Dose 55 MG; Start 09/09/16 at 12:00 IV Flush (NS 10 ml) 10 ml PRN PRN IV IV PROTOCOL; Start 09/11/16 at 10:00 Calcium/Vitamin D (Oyster Shell/ Vit-D (500/200)) 1 tab BID PO Last administered on 09/24/16 09:09; Admin Dose 1 TAB; Start 09/12/16 at 14:00 IV Flush (NS 10 ml) 10 ml PRN PRN IV IV PROTOCOL; Start 09/21/16 at 12:00 Metronidazole (Flagyl) 500 mg QID PO Last administered on 09/24/16 12:51; Admin Dose 500 MG; Start 09/22/16 at 13:00 Methadone HCl (Methadone Liq (Ped)) 2 mg Q6 PO Last administered on 09/24/16 13 :01; Admin Dose 2 MG; Start 09/23/16 at 18:00 Hydromorphone HCl (Dilaudid) 1 mg Q3H PRN IV PAIN; Start 09/24/16 at 10:00 JARAD CHOI MD Sep 24, 2016 13:06
[2016-09-24] MEDS: HYDROmorphONE 1 MG/ML SYG IV PRN ×2 (15:44→21:27)
[2016-09-24 19:36] VITALS: BP 116/75; RESP 20
[2016-09-24 19:41] VITALS: BP 148/67; RESP 18
[2016-09-24 19:46] VITALS: BP 161/69; RESP 18
[2016-09-25] MEDS: METHADONE (1 MG/1 ML PO SYG) PO SCH ×4 (00:20→18:02)
[2016-09-25] MEDS: METHYLNALTREXONE 12 MG/0.6 ML VIAL SC SCH (00:21)
[2016-09-25] MEDS: ENOXAPARIN 60 MG/0.6 ML SYG SC SCH ×2 (00:28→12:51)
[2016-09-25] MEDS: HYDROmorphONE 1 MG/ML SYG IV PRN ×4 (00:42→21:42)
[2016-09-25] MEDS: SOD CHLORIDE 0.9% 1,000 ML IV SCH ×3 (03:25→21:43)
[2016-09-25 05:42] LABS: BASOPHILS % 0.3 % (0.0-2.0); HEMATOCRIT 28.5 % (42.0-52.0); HEMOGLOBIN 9.9 g/dl (14.0-18.0); LYMPHOCYTES # 1.1 10^3/ul (0.8-2.9); LYMPHOCYTES % 14.8 % (15.0-51.0); MEAN CORPUSCULAR HGB CONC 34.9 g/dl (32.0-37.0); MEAN CORPUSCULAR VOLUME 83.2 fl (82.0-101.0); MEAN PLATELET VOLUME 7.4 fl (7.4-10.4); MONOCYTE # 0.7 10^3/ul (0.3-0.9); MONOCYTES % 9.6 % (0.0-11.0); NEUTROPHIL # 5.7 10^3/ul (1.6-7.5); NEUTROPHILS % 75.3 % (39.0-77.0); PLATELET COUNT 92 10^3/UL (140-440); RED BLOOD COUNT 3.43 10^6/ul (4.70-6.10); UNCORRECTED WBC 7.5 10^3/ul (4.8-10.8); WHITE BLOOD COUNT 7.5 10^3/ul (4.8-10.8)
[2016-09-25 05:47] LABS: ALBUMIN 2.2 g/dl (3.3-4.9)
[2016-09-25 05:48] LABS: POTASSIUM 3.7 mmol/L (3.5-5.1)
[2016-09-25 05:50] LABS: ALBUMIN/GLOBULIN RATIO 0.81; BILIRUBIN,INDIRECT 0.4 mg/dl (0-1.1); BILIRUBIN,TOTAL 0.4 mg/dl (0.2-1.3); CREATININE 0.31 mg/dl (0.61-1.24); TOTAL PROTEIN 4.9 g/dl (6.1-8.1)
[2016-09-25 05:51] LABS: CALCIUM 7.1 mg/dl (8.4-10.2)
[2016-09-25 05:59] LABS: CONDITION 1; LH ANALYZER COMMENTS 1
[2016-09-25] MEDS: PANTOPRAZOLE (EC) 40 MG TAB PO SCH (06:43)
[2016-09-25 07:55] VITALS: BP 101/70; RESP 20
[2016-09-25] MEDS: metroNIDAZOLE 500 MG TAB PO SCH ×4 (09:01→19:43)
[2016-09-25] MEDS: CALCIUM/VITAMIN D (500/200) TAB PO SCH ×2 (09:01→19:43)
[2016-09-25] MEDS: MEGESTROL (40 MG/ML) 10ML CUP PO SCH ×2 (09:01→19:43)
[2016-09-25] MEDS: ESCITALOPRAM 10 MG TAB PO SCH (09:02)
[2016-09-25] MEDS: BICALUTAMIDE 50 MG TAB PO SCH (09:06)
--- NOTE | 2016-09-25 11:57 | PN ---
Date/Time of Note Date/Time of Note DATE: 09/25/16 TIME: 11:56 Assessment/Plan VTE Prophylaxis VTE Prophylaxis Intervention: other Lines/Catheters IV Catheter Type (from Nrsg): Saline Lock Urinary Cath still in place: Yes Reason Cath still needed: skin wounds contaminated by urine Assessment/Plan Chief Complaint/Hosp Course 1) Hypotension - stable 2) Dehydration - IV fluids 3) Anemia - monitor H/H 4) Intractable pain - pain control 5) Prostate carcinoma - sp Radiation therapy by Dr Ghassan Hylton - oncology consult appreciated- Dr Silva 6) Thrombocytopenia - monitor 7) C. diff colitis - flagyl 500mg IV q6hr Patient and family may be ready for hospice Problems: Subjective 24 Hr Interval Summary Free Text/Dictation Patient has no complaints Exam/Review of Systems Vital Signs Vitals Vital Signs Date Time Temp Pulse Resp B/P Pulse Ox O2 Delivery O2 Flow Rate FiO2 09/25/16 07:55 98.7 103 20 101/70 96 Intake and Output 09/24/16 09/24/16 09/25/16 15:00 23:00 07:00 Intake Total 80 ml 1200 ml 1240 ml Output Total 200 ml 800 ml 750 ml Balance -120 ml 400 ml 490 ml Exam Constitutional: well developed Head: atraumatic, normocephalic Neck: supple Respiratory: clear to auscultation Cardiovascular: regular rate and rhythm Gastrointestinal: non-tender, soft Results Result Diagram: 09/25/16 0436 09/25/16 0436 Results 24 hrs Laboratory Tests Test 09/25/16 04:36 Alanine Aminotransferase (ALT/SGPT) 28 Albumin 2.2 L Albumin/Globulin Ratio 0.81 Alkaline Phosphatase 1488 H Anion Gap 11 Aspartate Amino Transf (AST/SGOT) 57 H Basophils # 0.0 Basophils % 0.3 Blood Morphology Comment Blood Urea Nitrogen 5 L Calcium Level 7.1 L Carbon Dioxide Level 23 Chloride Level 101 Creatinine 0.31 L Direct Bilirubin 0.00 Eosinophils # 0.0 Eosinophils % 0.0 Globulin 2.70 Glucose Level 105 Hematocrit 28.5 L Hemoglobin 9.9 L Indirect Bilirubin 0.4 Lymphocytes # 1.1 Lymphocytes % 14.8 L Mean Corpuscular Hemoglobin 29.0 Mean Corpuscular Hemoglobin Concent 34.9 Mean Corpuscular Volume 83.2 Mean Platelet Volume 7.4 Monocytes # 0.7 Monocytes % 9.6 Neutrophils # 5.7 Neutrophils % 75.3 Nucleated Red Blood Cells # 0.0 Nucleated Red Blood Cells % 0.0 Platelet Count 92 L Potassium Level 3.7 Red Blood Count 3.43 L Red Cell Distribution Width 17.0 H Sodium Level 131 L Total Bilirubin 0.4 Total Protein 4.9 L White Blood Count 7.5 Medications Medications Current Medications Sodium Chloride (NS) 1,000 ml @ 80 mls/hr [id number] IV Last administered on 03:25; Admin Dose 80 MLS/HR; Start 09/06/16 at 23:30 Bicalutamide (Casodex) 50 mg QAM PO Last administered on 09/25/16 09:06; Admin Dose 50 MG; Start 09/07/16 at 09:00 Docusate Sodium (Colace) 100 mg BID PRN PO CONSTIPATION Last administered on at 22:45; Admin Dose 100 MG; Start 09/07/16 at 00:00 Escitalopram Oxalate (Lexapro) 5 mg DAILY PO Last administered on 09/25/16 09: 02; Admin Dose 5 MG; Start 09/07/16 at 09:00 Megestrol Acetate (Megace Susp) 400 mg BID PO Last administered on 09/25/16 09: 01; Admin Dose 400 MG; Start 09/07/16 at 09:00 Methylnaltrexone [place] (Relistor) 12 mg Q48H SC Last administered on 00:21; Admin Dose 12 MG; Start 09/07/16 at 00:00 Ondansetron HCl (Zofran Tab) 4 mg Q6H PRN PO NAUSEA AND/OR VOMITING Last administered on 09/19/16 05:30; Admin Dose 4 MG; Start 09/07/16 at 00:00 Acetaminophen (Tylenol Tab) 500 mg Q4H PRN PO PAIN AND OR ELEVATED TEMP Last administered on 09/08/16at 21:03; Admin Dose 500 MG; Start 09/07/16 at 21:30 Enoxaparin Sodium (Lovenox) 55 mg Q12H SC Last administered on 09/25/16 00:28; Admin Dose 55 MG; Start 09/09/16 at 12:00 IV Flush (NS 10 ml) 10 ml PRN PRN IV IV PROTOCOL; Start 09/11/16 at 10:00 Calcium/Vitamin D (Oyster Shell/ Vit-D (500/200)) 1 tab BID PO Last administered on 09/25/16 09:01; Admin Dose 1 TAB; Start 09/12/16 at 14:00 IV Flush (NS 10 ml) 10 ml PRN PRN IV IV PROTOCOL; Start 09/21/16 at 12:00 Metronidazole (Flagyl) 500 mg QID PO Last administered on 09/25/16 09:01; Admin Dose 500 MG; Start 09/22/16 at 13:00 Methadone HCl (Methadone Liq (Ped)) 2 mg Q6 PO Last administered on 09/25/16 06 :43; Admin Dose 2 MG; Start 09/23/16 at 18:00 Hydromorphone HCl (Dilaudid) 1 mg Q3H PRN IV PAIN Last administered on 07:51; Admin Dose 1 MG; Start 09/24/16 at 10:00 NASREEN DAMON Sep 25, 2016 11:57
--- NOTE | 2016-09-25 13:11 | CONS ---
Date/Time of Note Date/Time of Note DATE: 09/25/16 TIME: 13:11 Assessment/Plan Assessment/Plan Chief Complaint/Hosp Course Metastatic prostate cancer. RE: chemotherapy and steroids - PER PROTOCOL Chemotherapy Docetaxel (Taxotere) 30 mg/m2 IV over 30 minutes once per day on days 1, 8, 15, 22, 29 Prednisone (Sterapred) 5 mg PO BID on days 1 to 42 Supportive medications Dexamethasone (Decadron) 8 mg (route not specified) once 1 hour before Docetaxel (Taxotere) Antiemetics "according to local practice" 42-day cycle for up to 5 cycles ANEMIA POST PRBC MONITOR CLOSELY OBSERVE FOR BLEEDING AND HEMOLYSIS Thrombocytopenia. Continue to monitor platelets. transfuse as needed PANCYTOPENIA MONITOR DECONDITIONING PT Acute on chronic back pain. Problems: Consultation Date/Type/Reason Admit Date/Time Sep 06, 2016 at 22:01 Initial Consult Date 09/08/16 Type of Consultation: Hematology/Oncology Referring Provider: TIMOTHY MARAVILLA MD 24 HR Interval Summary Free Text/Dictation ALL NOTED WEAK D/W PT AND FAMILY RE CHEMO WANT TO THINK RE IT Exam/Review of Systems Vital Signs Vitals Vital Signs Date Time Temp Pulse Resp B/P Pulse Ox O2 Delivery O2 Flow Rate FiO2 09/25/16 07:55 98.7 103 20 101/70 96 Intake and Output 09/24/16 09/24/16 09/25/16 15:00 23:00 07:00 Intake Total 80 ml 1200 ml 1240 ml Output Total 200 ml 800 ml 750 ml Balance -120 ml 400 ml 490 ml Exam Constitutional: alert, oriented Psych: nl mood/affect Head: normocephalic Eyes: EOMI, nl conjunctiva ENMT: nl external ears & nose Neck: non-tender Respiratory: clear to auscultation Cardiovascular: nl pulses Gastrointestinal: soft, tender (diffuse tenderness ) Extremities: normal pulses 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: nl speech Skin: nl turgor Lymph: nontender Results Result Diagram: 09/25/16 0436 09/25/16 0436 Results 24 hrs Laboratory Tests Test 09/25/16 04:36 Alanine Aminotransferase (ALT/SGPT) 28 Albumin 2.2 L Albumin/Globulin Ratio 0.81 Alkaline Phosphatase 1488 H Anion Gap 11 Aspartate Amino Transf (AST/SGOT) 57 H Basophils # 0.0 Basophils % 0.3 Blood Morphology Comment Blood Urea Nitrogen 5 L Calcium Level 7.1 L Carbon Dioxide Level 23 Chloride Level 101 Creatinine 0.31 L Direct Bilirubin 0.00 Eosinophils # 0.0 Eosinophils % 0.0 Globulin 2.70 Glucose Level 105 Hematocrit 28.5 L Hemoglobin 9.9 L Indirect Bilirubin 0.4 Lymphocytes # 1.1 Lymphocytes % 14.8 L Mean Corpuscular Hemoglobin 29.0 Mean Corpuscular Hemoglobin Concent 34.9 Mean Corpuscular Volume 83.2 Mean Platelet Volume 7.4 Monocytes # 0.7 Monocytes % 9.6 Neutrophils # 5.7 Neutrophils % 75.3 Nucleated Red Blood Cells # 0.0 Nucleated Red Blood Cells % 0.0 Platelet Count 92 L Potassium Level 3.7 Red Blood Count 3.43 L Red Cell Distribution Width 17.0 H Sodium Level 131 L Total Bilirubin 0.4 Total Protein 4.9 L White Blood Count 7.5 Medications Medications Current Medications Sodium Chloride (NS) 1,000 ml @ 80 mls/hr [id number] IV Last administered on 03:25; Admin Dose 80 MLS/HR; Start 09/06/16 at 23:30 Bicalutamide (Casodex) 50 mg QAM PO Last administered on 09/25/16 09:06; Admin Dose 50 MG; Start 09/07/16 at 09:00 Docusate Sodium (Colace) 100 mg BID PRN PO CONSTIPATION Last administered on at 22:45; Admin Dose 100 MG; Start 09/07/16 at 00:00 Escitalopram Oxalate (Lexapro) 5 mg DAILY PO Last administered on 09/25/16 09: 02; Admin Dose 5 MG; Start 09/07/16 at 09:00 Megestrol Acetate (Megace Susp) 400 mg BID PO Last administered on 09/25/16 09: 01; Admin Dose 400 MG; Start 09/07/16 at 09:00 Methylnaltrexone [place] (Relistor) 12 mg Q48H SC Last administered on 00:21; Admin Dose 12 MG; Start 09/07/16 at 00:00 Ondansetron HCl (Zofran Tab) 4 mg Q6H PRN PO NAUSEA AND/OR VOMITING Last administered on 09/19/16 05:30; Admin Dose 4 MG; Start 09/07/16 at 00:00 Acetaminophen (Tylenol Tab) 500 mg Q4H PRN PO PAIN AND OR ELEVATED TEMP Last administered on 09/08/16at 21:03; Admin Dose 500 MG; Start 09/07/16 at 21:30 Enoxaparin Sodium (Lovenox) 55 mg Q12H SC Last administered on 09/25/16 12:51; Admin Dose 55 MG; Start 09/09/16 at 12:00 IV Flush (NS 10 ml) 10 ml PRN PRN IV IV PROTOCOL; Start 09/11/16 at 10:00 Calcium/Vitamin D (Oyster Shell/ Vit-D (500/200)) 1 tab BID PO Last administered on 09/25/16 09:01; Admin Dose 1 TAB; Start 09/12/16 at 14:00 IV Flush (NS 10 ml) 10 ml PRN PRN IV IV PROTOCOL; Start 09/21/16 at 12:00 Metronidazole (Flagyl) 500 mg QID PO Last administered on 09/25/16 12:47; Admin Dose 500 MG; Start 09/22/16 at 13:00 Methadone HCl (Methadone Liq (Ped)) 2 mg Q6 PO Last administered on 09/25/16 06 :43; Admin Dose 2 MG; Start 09/23/16 at 18:00 Hydromorphone HCl (Dilaudid) 1 mg Q3H PRN IV PAIN Last administered on 07:51; Admin Dose 1 MG; Start 09/24/16 at 10:00 JARAD CHOI MD Sep 25, 2016 13:11
[2016-09-25] MEDS: ZOLPIDEM 5 MG TAB PO PRN (19:43)
[2016-09-25 20:17] VITALS: BP 105/69; RESP 20
[2016-09-26] MEDS: ENOXAPARIN 60 MG/0.6 ML SYG SC SCH ×2 (00:30→13:06)
[2016-09-26] MEDS: METHADONE (1 MG/1 ML PO SYG) PO SCH ×4 (00:33→17:46)
[2016-09-26 05:19] LABS: ALBUMIN 2.1 g/dl (3.3-4.9)
[2016-09-26 05:20] LABS: POTASSIUM 3.4 mmol/L (3.5-5.1)
[2016-09-26 05:22] LABS: BILIRUBIN,INDIRECT 0.3 mg/dl (0-1.1); BILIRUBIN,TOTAL 0.3 mg/dl (0.2-1.3); CREATININE 0.29 mg/dl (0.61-1.24)
[2016-09-26 05:23] LABS: ALBUMIN/GLOBULIN RATIO 0.77; CALCIUM 6.9 mg/dl (8.4-10.2); TOTAL PROTEIN 4.8 g/dl (6.1-8.1)
[2016-09-26] MEDS: PANTOPRAZOLE (EC) 40 MG TAB PO SCH (05:46)
[2016-09-26 07:22] LABS: BASOPHILS % 0.2 % (0.0-2.0); HEMATOCRIT 29.5 % (42.0-52.0); HEMOGLOBIN 10.1 g/dl (14.0-18.0); LYMPHOCYTES # 0.9 10^3/ul (0.8-2.9); LYMPHOCYTES % 13.8 % (15.0-51.0); MEAN CORPUSCULAR HEMOGLOBIN 28.8 pg (29.0-33.0); MEAN CORPUSCULAR HGB CONC 34.1 g/dl (32.0-37.0); MEAN CORPUSCULAR VOLUME 84.4 fl (82.0-101.0); MEAN PLATELET VOLUME 7.2 fl (7.4-10.4); MONOCYTE # 0.6 10^3/ul (0.3-0.9); MONOCYTES % 8.2 % (0.0-11.0); NEUTROPHIL # 5.3 10^3/ul (1.6-7.5); NEUTROPHILS % 77.8 % (39.0-77.0); PLATELET COUNT 92 10^3/UL (140-440); RED BLOOD COUNT 3.49 10^6/ul (4.70-6.10); RED CELL DISTRIBUTION WIDTH 16.9 % (11.5-14.5); UNCORRECTED WBC 6.9 10^3/ul (4.8-10.8); WHITE BLOOD COUNT 6.9 10^3/ul (4.8-10.8)
[2016-09-26 07:25] LABS: CONDITION 1; LH ANALYZER COMMENTS 1
[2016-09-26 08:00] VITALS: BP 111/74; RESP 18
[2016-09-26] MEDS: ESCITALOPRAM 10 MG TAB PO SCH (09:10)
[2016-09-26] MEDS: MEGESTROL (40 MG/ML) 10ML CUP PO SCH ×2 (09:11→21:12)
[2016-09-26] MEDS: metroNIDAZOLE 500 MG TAB PO SCH ×4 (09:11→21:12)
[2016-09-26] MEDS: CALCIUM/VITAMIN D (500/200) TAB PO SCH ×2 (09:11→21:12)
[2016-09-26] MEDS: BICALUTAMIDE 50 MG TAB PO SCH (09:19)
--- NOTE | 2016-09-26 10:45 | CONS ---
Date/Time of Note Date/Time of Note DATE: 09/26/16 TIME: 10:45 Assessment/Plan Assessment/Plan Chief Complaint/Hosp Course Metastatic prostate cancer. POS CHEMO # 2 chemotherapy and steroids - PER PROTOCOL Chemotherapy Docetaxel (Taxotere) 30 mg/m2 IV over 30 minutes once per day on days 1, 8, 15, 22, 29 Prednisone (Sterapred) 5 mg PO BID on days 1 to 42 Supportive medications Dexamethasone (Decadron) 8 mg (route not specified) once 1 hour before Docetaxel (Taxotere) Antiemetics "according to local practice" 42-day cycle for up to 5 cycles ANEMIA POST PRBC MONITOR CLOSELY OBSERVE FOR BLEEDING AND HEMOLYSIS Thrombocytopenia. Continue to monitor platelets. transfuse as needed PANCYTOPENIA MONITOR DECONDITIONING PT Acute on chronic back pain. Problems: Consultation Date/Type/Reason Admit Date/Time Sep 06, 2016 at 22:01 Initial Consult Date 09/08/16 Type of Consultation: Hematology/Oncology 24 HR Interval Summary Free Text/Dictation ALL NOTED PT - BACK AND FORTH RE CHEMO SOCIAL SERVICE - IN THE CASE Exam/Review of Systems Vital Signs Vitals Vital Signs Date Time Temp Pulse Resp B/P Pulse Ox O2 Delivery O2 Flow Rate FiO2 09/26/16 08:00 97.8 18 18 111/74 90 Intake and Output 09/25/16 09/25/16 09/26/16 15:00 23:00 07:00 Intake Total 1000 ml 1160 ml Output Total 1200 ml 600 ml Balance -200 ml 560 ml Exam Constitutional: alert, oriented Psych: nl mood/affect Head: normocephalic Eyes: EOMI, nl conjunctiva ENMT: nl external ears & nose Neck: non-tender Respiratory: clear to auscultation Cardiovascular: nl pulses Gastrointestinal: soft, tender (diffuse tenderness ) Extremities: normal pulses 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: nl speech Skin: nl turgor Lymph: nontender Results Result Diagram: 09/26/1642409/26/16 0425 Results 24 hrs Laboratory Tests Test 09/26/16 04:25 Alanine Aminotransferase (ALT/SGPT) 26 Albumin 2.1 L Albumin/Globulin Ratio 0.77 Alkaline Phosphatase 1454 H Anion Gap 12 Aspartate Amino Transf (AST/SGOT) 53 H Basophils # 0.0 Basophils % 0.2 Blood Morphology Comment Blood Urea Nitrogen 4 L Calcium Level 6.9 L Carbon Dioxide Level 22 Chloride Level 102 Creatinine 0.29 L Direct Bilirubin 0.00 Eosinophils # 0.0 Eosinophils % 0.0 Globulin 2.70 Glucose Level 85 Hematocrit 29.5 L Hemoglobin 10.1 L Indirect Bilirubin 0.3 Lymphocytes # 0.9 Lymphocytes % 13.8 L Mean Corpuscular Hemoglobin 28.8 L Mean Corpuscular Hemoglobin Concent 34.1 Mean Corpuscular Volume 84.4 Mean Platelet Volume 7.2 L Monocytes # 0.6 Monocytes % 8.2 Neutrophils # 5.3 Neutrophils % 77.8 H Nucleated Red Blood Cells # 0.0 Nucleated Red Blood Cells % 0.0 Platelet Count 92 L Potassium Level 3.4 L Red Blood Count 3.49 L Red Cell Distribution Width 16.9 H Sodium Level 133 L Total Bilirubin 0.3 Total Protein 4.8 L White Blood Count 6.9 Medications Medications Current Medications Sodium Chloride (NS) 1,000 ml @ 80 mls/hr [id number] IV Last administered on 21:43; Admin Dose 80 MLS/HR; Start 09/06/16 at 23:30 Bicalutamide (Casodex) 50 mg QAM PO Last administered on 09/26/16 09:19; Admin Dose 50 MG; Start 09/07/16 at 09:00 Docusate Sodium (Colace) 100 mg BID PRN PO CONSTIPATION Last administered on at 22:45; Admin Dose 100 MG; Start 09/07/16 at 00:00 Escitalopram Oxalate (Lexapro) 5 mg DAILY PO Last administered on 09/26/16 09: 10; Admin Dose 5 MG; Start 09/07/16 at 09:00 Megestrol Acetate (Megace Susp) 400 mg BID PO Last administered on 09/26/16 09: 11; Admin Dose 400 MG; Start 09/07/16 at 09:00 Methylnaltrexone [place] (Relistor) 12 mg Q48H SC Last administered on 00:21; Admin Dose 12 MG; Start 09/07/16 at 00:00 Ondansetron HCl (Zofran Tab) 4 mg Q6H PRN PO NAUSEA AND/OR VOMITING Last administered on 09/19/16 05:30; Admin Dose 4 MG; Start 09/07/16 at 00:00 Acetaminophen (Tylenol Tab) 500 mg Q4H PRN PO PAIN AND OR ELEVATED TEMP Last administered on 09/08/16at 21:03; Admin Dose 500 MG; Start 09/07/16 at 21:30 Enoxaparin Sodium (Lovenox) 55 mg Q12H SC Last administered on 09/26/16 00:30; Admin Dose 55 MG; Start 09/09/16 at 12:00 IV Flush (NS 10 ml) 10 ml PRN PRN IV IV PROTOCOL; Start 09/11/16 at 10:00 Calcium/Vitamin D (Oyster Shell/ Vit-D (500/200)) 1 tab BID PO Last administered on 09/26/16 09:11; Admin Dose 1 TAB; Start 09/12/16 at 14:00 IV Flush (NS 10 ml) 10 ml PRN PRN IV IV PROTOCOL; Start 09/21/16 at 12:00 Metronidazole (Flagyl) 500 mg QID PO Last administered on 09/26/16 09:11; Admin Dose 500 MG; Start 09/22/16 at 13:00 Methadone HCl (Methadone Liq (Ped)) 2 mg Q6 PO Last administered on 09/26/16 05 :46; Admin Dose 2 MG; Start 09/23/16 at 18:00 Hydromorphone HCl (Dilaudid) 1 mg Q3H PRN IV PAIN Last administered on 21:42; Admin Dose 1 MG; Start 09/24/16 at 10:00 JARAD CHOI MD Sep 26, 2016 10:45
[2016-09-26] MEDS: HYDROmorphONE 1 MG/ML SYG IV PRN ×3 (11:20→22:53)
[2016-09-26] MEDS ORDERED: POTASSIUM CHLORIDE 20 MEQ POWDER FOR ORAL SOLN PO ONE (16:00)
--- NOTE | 2016-09-26 17:18 | PN ---
DATE: 09/26/2016 SUBJECTIVE: Followup on a 60-year-old male with metastatic prostate cancer and Clostridium difficil e colitis. The patient currently denies any diarrhea. The patient complains of generalized pain. Continues to have poor appetite. Denies vomiting. Nausea is well controlled. OBJECTIVE: VITAL SIGNS: Temperature is 97.8, pulse is 104, blood pressure is 111/74, respiratory rate 18, oxyg en saturation is 98% on room air. GENERAL: Well-developed, cachectic male, currently is awake, alert. HEENT: Head is atraumatic, normocephalic. PERRLA. NECK: Supple. No mass, no thyromegaly. LUNGS: Clear bilaterally. No rhonchi, wheezes, rales noted. HEART: Normal S1, S2. No murmurs, gallops, clicks, rubs noted. ABDOMEN: Flat, soft, nondistended, nontender. Bowel sounds present. EXTREMITIES: No edema. SKIN: There is no rash, petechiae noted. NEUROLOGIC: The patient is awake, alert, and oriented x3. LABORATORY DATA FOR TODAY: CBC: White blood cells 6.9, hemoglobin 10.1, hematocrit 29.5, platelets 92. Chemistry: Sodium is 133, potassium 3.4, chloride 102, carbon dioxide 22, anion gap 12, BUN i s 4, creatinine 0.29, glucose 85. ASSESSMENT AND PLAN: 1. Clostridium difficile colitis. Continue Flagyl and contact isolation. 2. Metastatic prostate cancer. Dr. Hernandez is following patient in oncology consultation. Joe nue chemotherapy and steroids. 3. Thrombocytopenia. Continue to monitor platelets. 4. Acute on chronic back pain. Dr. Ferguson is following the patient in pain management. Continue methadone and Dilaudid p.r.n. for breakthrough pain. We will continue Protonix for peptic ulcer disease prophylaxis. Lovenox for deep venous thrombosis prophylaxis. Lovenox is also continued for chronic disseminated intravascular coagulation per oncol ogy recommendations. Further recommendations based on clinical course. Plan of care discussed with Dr. Maravilla. Dictated By: SREE GRIFFITH RAIL ASSEMBLER for TIMOTHY MARAVILLA MD SR/NTS Conf#: [id number] DID#: [id number]
[2016-09-26] MEDS: SOD CHLORIDE 0.9% 1,000 ML IV SCH (17:46)
[2016-09-26 20:15] VITALS: BP 135/68; RESP 18
[2016-09-27] MEDS: METHYLNALTREXONE 12 MG/0.6 ML VIAL SC SCH (00:41)
[2016-09-27] MEDS: METHADONE (1 MG/1 ML PO SYG) PO SCH ×5 (00:41→22:48)
[2016-09-27] MEDS: ENOXAPARIN 60 MG/0.6 ML SYG SC SCH ×3 (00:43→22:48)
[2016-09-27] MEDS: HYDROmorphONE 1 MG/ML SYG IV PRN ×5 (01:41→17:33)
[2016-09-27 05:18] LABS: EOSINOPHILS % 0.1 % (0.0-7.0); HEMOGLOBIN 8.6 g/dl (14.0-18.0); LYMPHOCYTES # 0.7 10^3/ul (0.8-2.9); LYMPHOCYTES % 11.9 % (15.0-51.0); MEAN CORPUSCULAR HEMOGLOBIN 28.9 pg (29.0-33.0); MEAN CORPUSCULAR HGB CONC 34.3 g/dl (32.0-37.0); MEAN CORPUSCULAR VOLUME 84.2 fl (82.0-101.0); MEAN PLATELET VOLUME 7.2 fl (7.4-10.4); MONOCYTE # 0.6 10^3/ul (0.3-0.9); MONOCYTES % 9.8 % (0.0-11.0); NEUTROPHIL # 4.7 10^3/ul (1.6-7.5); NEUTROPHILS % 78.2 % (39.0-77.0); PLATELET COUNT 88 10^3/UL (140-440); RED BLOOD COUNT 2.97 10^6/ul (4.70-6.10)
[2016-09-27 05:36] LABS: POTASSIUM 3.3 mmol/L (3.5-5.1)
[2016-09-27 05:38] LABS: CREATININE 0.33 mg/dl (0.61-1.24)
[2016-09-27 05:39] LABS: ALBUMIN/GLOBULIN RATIO 0.76; BILIRUBIN,INDIRECT 0.3 mg/dl (0-1.1); BILIRUBIN,TOTAL 0.3 mg/dl (0.2-1.3); TOTAL PROTEIN 4.6 g/dl (6.1-8.1)
[2016-09-27 05:41] LABS: CONDITION 1; LH ANALYZER COMMENTS 1
[2016-09-27] MEDS: PANTOPRAZOLE (EC) 40 MG TAB PO SCH (05:58)
[2016-09-27] MEDS: SOD CHLORIDE 0.9% 1,000 ML IV SCH ×2 (06:23→19:41)
[2016-09-27 07:44] VITALS: BP 118/74; RESP 18
[2016-09-27] MEDS: MEGESTROL (40 MG/ML) 10ML CUP PO SCH ×2 (07:52→19:57)
[2016-09-27] MEDS: DOCUSATE SODIUM 100 MG CAP PO PRN (07:52)
--- NOTE | 2016-09-27 08:55 | CONS ---
Date/Time of Note Date/Time of Note DATE: 09/27/16 TIME: 08:55 Assessment/Plan Assessment/Plan Chief Complaint/Hosp Course Metastatic prostate cancer. POS CHEMO THIS WE chemotherapy and steroids - PER PROTOCOL Chemotherapy Docetaxel (Taxotere) 30 mg/m2 IV over 30 minutes once per day on days 1, 8, 15, 22, 29 Prednisone (Sterapred) 5 mg PO BID on days 1 to 42 Supportive medications Dexamethasone (Decadron) 8 mg (route not specified) once 1 hour before Docetaxel (Taxotere) Antiemetics "according to local practice" 42-day cycle for up to 5 cycles Thrombocytopenia. Continue to monitor platelets. PANCYTOPENIA MONITOR DECONDITIONING PT Acute on chronic back pain. Dr. Ferguson is following the patient in pain management. Continue methadone and Dilaudid p.r.n. for breakthrough pain. Clostridium difficile colitis. Continue Flagyl and contact isolation. Problems: Consultation Date/Type/Reason Admit Date/Time Sep 06, 2016 at 22:01 Initial Consult Date 09/08/16 Type of Consultation: Hematology/Oncology 24 HR Interval Summary Free Text/Dictation FAMILY CONFERENCE Exam/Review of Systems Vital Signs Vitals Vital Signs Date Time Temp Pulse Resp B/P Pulse Ox O2 Delivery O2 Flow Rate FiO2 09/27/16 07:44 98.6 109 18 118/74 97 Intake and Output 09/26/16 09/26/16 09/27/16 15:00 23:00 07:00 Intake Total 1160 ml 1260 ml Output Total 850 ml 600 ml Balance 310 ml 660 ml Exam Constitutional: alert, oriented Psych: no complaints Head: atraumatic Eyes: EOMI ENMT: nl external ears & nose Neck: non-tender Respiratory: clear to auscultation Gastrointestinal: soft Musculoskeletal: nl extremities to inspection Extremities: normal pulses 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: nl mental status, nl speech Skin: nl turgor Lymph: nontender Results Result Diagram: 09/27/1642909/27/16 0430 Results 24 hrs Laboratory Tests Test 09/27/16 04:30 Alanine Aminotransferase (ALT/SGPT) 24 Albumin 2.0 L Albumin/Globulin Ratio 0.76 Alkaline Phosphatase 1439 H Anion Gap 10 Aspartate Amino Transf (AST/SGOT) 45 Basophils # 0.0 Basophils % 0.0 Blood Morphology Comment Blood Urea Nitrogen 4 L Calcium Level 7.0 L Carbon Dioxide Level 23 Chloride Level 102 Creatinine 0.33 L Direct Bilirubin 0.00 Eosinophils # 0.0 Eosinophils % 0.1 Globulin 2.60 Glucose Level 109 Hematocrit 25.0 L Hemoglobin 8.6 L Indirect Bilirubin 0.3 Lymphocytes # 0.7 L Lymphocytes % 11.9 L Mean Corpuscular Hemoglobin 28.9 L Mean Corpuscular Hemoglobin Concent 34.3 Mean Corpuscular Volume 84.2 Mean Platelet Volume 7.2 L Monocytes # 0.6 Monocytes % 9.8 Neutrophils # 4.7 Neutrophils % 78.2 H Nucleated Red Blood Cells # 0.0 Nucleated Red Blood Cells % 0.0 Platelet Count 88 L Potassium Level 3.3 L Red Blood Count 2.97 L Red Cell Distribution Width 17.0 H Sodium Level 132 L Total Bilirubin 0.3 Total Protein 4.6 L White Blood Count 6.0 Medications Medications Current Medications Sodium Chloride (NS) 1,000 ml @ 80 mls/hr [id number] IV Last administered on 09/27 06:23; Admin Dose 80 MLS/HR; Start 09/06/16 at 23:30 Bicalutamide (Casodex) 50 mg QAM PO Last administered on 09/26/16 09:19; Admin Dose 50 MG; Start 09/07/16 at 09:00 Docusate Sodium (Colace) 100 mg BID PRN PO CONSTIPATION Last administered on 07:52; Admin Dose 100 MG; Start 09/07/16 at 00:00 Escitalopram Oxalate (Lexapro) 5 mg DAILY PO Last administered on 09/26/16 09: 10; Admin Dose 5 MG; Start 09/07/16 at 09:00 Megestrol Acetate (Megace Susp) 400 mg BID PO Last administered on 09/27/16 07 :52; Admin Dose 400 MG; Start 09/07/16 at 09:00 Methylnaltrexone [place] (Relistor) 12 mg Q48H SC Last administered on 00:41; Admin Dose 12 MG; Start 09/07/16 at 00:00 Ondansetron HCl (Zofran Tab) 4 mg Q6H PRN PO NAUSEA AND/OR VOMITING Last administered on 09/19/16 05:30; Admin Dose 4 MG; Start 09/07/16 at 00:00 Acetaminophen (Tylenol Tab) 500 mg Q4H PRN PO PAIN AND OR ELEVATED TEMP Last administered on 09/08/16at 21:03; Admin Dose 500 MG; Start 09/07/16 at 21:30 Enoxaparin Sodium (Lovenox) 55 mg Q12H SC Last administered on 09/27/16 00:43 ; Admin Dose 55 MG; Start 09/09/16 at 12:00 IV Flush (NS 10 ml) 10 ml PRN PRN IV IV PROTOCOL; Start 09/11/16 at 10:00 Calcium/Vitamin D (Oyster Shell/ Vit-D (500/200)) 1 tab BID PO Last administered on 09/26/16 21:12; Admin Dose 1 TAB; Start 09/12/16 at 14:00 IV Flush (NS 10 ml) 10 ml PRN PRN IV IV PROTOCOL; Start 09/21/16 at 12:00 Metronidazole (Flagyl) 500 mg QID PO Last administered on 09/26/16 21:12; Admin Dose 500 MG; Start 09/22/16 at 13:00 Methadone HCl (Methadone Liq (Ped)) 2 mg Q6 PO Last administered on 09/27/16 05:58; Admin Dose 2 MG; Start 09/23/16 at 18:00 Hydromorphone HCl (Dilaudid) 1 mg Q3H PRN IV PAIN Last administered on 07:52; Admin Dose 1 MG; Start 09/24/16 at 10:00 JARAD CHOI MD Sep 27, 2016 08:55
[2016-09-27] MEDS: ESCITALOPRAM 10 MG TAB PO SCH (09:00)
[2016-09-27] MEDS: metroNIDAZOLE 500 MG TAB PO SCH ×4 (09:53→19:57)
[2016-09-27] MEDS: CALCIUM/VITAMIN D (500/200) TAB PO SCH ×2 (09:54→19:57)
[2016-09-27] MEDS: BICALUTAMIDE 50 MG TAB PO SCH (11:12)
--- NOTE | 2016-09-27 14:57 | PN ---
Date/Time of Note Date/Time of Note DATE: 09/27/16 TIME: 14:53 Assessment/Plan VTE Prophylaxis VTE Prophylaxis Intervention: LMWH Lines/Catheters IV Catheter Type (from Nrsg): PICC Line Central line still needed: Yes Urinary Cath still in place: Yes Reason Cath still needed: urinary retention Assessment/Plan Chief Complaint/Hosp Course ASSESSMENT AND PLAN: 1. Clostridium difficile colitis. Continue Flagyl and contact isolation. 2. Metastatic prostate cancer. Dr. Hernandez is following patient in oncology consultation. Continue chemotherapy and steroids. 3. Thrombocytopenia. Continue to monitor platelets. 4. Acute on chronic back pain. Dr. Ferguson is following the patient in pain management. Continue methadone and Dilaudid p.r.n. for breakthrough pain. Continue Protonix for peptic ulcer disease prophylaxis. Lovenox for deep venous thrombosis prophylaxis. 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 Further recommendations based on clinical course. Plan of care discussed with Dr. Nichols. Problems: Subjective 24 Hr Interval Summary Free Text/Dictation Patient states that his pain is controlled, poor appetite, refused chemo today per RN. Exam/Review of Systems Vital Signs Vitals Vital Signs Date Time Temp Pulse Resp B/P Pulse Ox O2 Delivery O2 Flow Rate FiO2 09/27/16 07:44 98.6 109 18 118/74 97 Intake and Output 09/26/16 09/26/16 09/27/16 15:00 23:00 07:00 Intake Total 1160 ml 1260 ml Output Total 850 ml 600 ml Balance 310 ml 660 ml Exam GENERAL: Well-developed, cachectic male, currently is awake, alert. HEENT: Head is atraumatic, normocephalic. PERRLA. NECK: Supple. No mass, no thyromegaly. LUNGS: Clear bilaterally. No rhonchi, wheezes, rales noted. HEART: Normal S1, S2. No murmurs, gallops, clicks, rubs noted. ABDOMEN: Flat, soft, nondistended, nontender. Bowel sounds present. EXTREMITIES: No edema. SKIN: There is no rash, petechiae noted. NEUROLOGIC: The patient is awake, alert, and oriented x3. Results Result Diagram: 09/27/16 0430 09/27/16 0430 Results 24 hrs Laboratory Tests Test 09/27/16 04:30 Alanine Aminotransferase (ALT/SGPT) 24 Albumin 2.0 L Albumin/Globulin Ratio 0.76 Alkaline Phosphatase 1439 H Anion Gap 10 Aspartate Amino Transf (AST/SGOT) 45 Basophils # 0.0 Basophils % 0.0 Blood Morphology Comment Blood Urea Nitrogen 4 L Calcium Level 7.0 L Carbon Dioxide Level 23 Chloride Level 102 Creatinine 0.33 L Direct Bilirubin 0.00 Eosinophils # 0.0 Eosinophils % 0.1 Globulin 2.60 Glucose Level 109 Hematocrit 25.0 L Hemoglobin 8.6 L Indirect Bilirubin 0.3 Lymphocytes # 0.7 L Lymphocytes % 11.9 L Mean Corpuscular Hemoglobin 28.9 L Mean Corpuscular Hemoglobin Concent 34.3 Mean Corpuscular Volume 84.2 Mean Platelet Volume 7.2 L Monocytes # 0.6 Monocytes % 9.8 Neutrophils # 4.7 Neutrophils % 78.2 H Nucleated Red Blood Cells # 0.0 Nucleated Red Blood Cells % 0.0 Platelet Count 88 L Potassium Level 3.3 L Red Blood Count 2.97 L Red Cell Distribution Width 17.0 H Sodium Level 132 L Total Bilirubin 0.3 Total Protein 4.6 L White Blood Count 6.0 Medications Medications Current Medications Sodium Chloride (NS) 1,000 ml @ 80 mls/hr [id number] IV Last administered on 09/27 06:23; Admin Dose 80 MLS/HR; Start 09/06/16 at 23:30 Bicalutamide (Casodex) 50 mg QAM PO Last administered on 09/27/16 11:12; Admin Dose 50 MG; Start 09/07/16 at 09:00 Docusate Sodium (Colace) 100 mg BID PRN PO CONSTIPATION Last administered on 07:52; Admin Dose 100 MG; Start 09/07/16 at 00:00 Escitalopram Oxalate (Lexapro) 5 mg DAILY PO Last administered on 09/27/16 09: 00; Admin Dose 5 MG; Start 09/07/16 at 09:00 Megestrol Acetate (Megace Susp) 400 mg BID PO Last administered on 09/27/16 07 :52; Admin Dose 400 MG; Start 09/07/16 at 09:00 Methylnaltrexone [place] (Relistor) 12 mg Q48H SC Last administered on 00:41; Admin Dose 12 MG; Start 09/07/16 at 00:00 Ondansetron HCl (Zofran Tab) 4 mg Q6H PRN PO NAUSEA AND/OR VOMITING Last administered on 09/19/16 05:30; Admin Dose 4 MG; Start 09/07/16 at 00:00 Acetaminophen (Tylenol Tab) 500 mg Q4H PRN PO PAIN AND OR ELEVATED TEMP Last administered on 09/08/16at 21:03; Admin Dose 500 MG; Start 09/07/16 at 21:30 Enoxaparin Sodium (Lovenox) 55 mg Q12H SC Last administered on 09/27/16 13:00 ; Admin Dose 55 MG; Start 09/09/16 at 12:00 IV Flush (NS 10 ml) 10 ml PRN PRN IV IV PROTOCOL; Start 09/11/16 at 10:00 Calcium/Vitamin D (Oyster Shell/ Vit-D (500/200)) 1 tab BID PO Last administered on 09/27/16 09:54; Admin Dose 1 TAB; Start 09/12/16 at 14:00 IV Flush (NS 10 ml) 10 ml PRN PRN IV IV PROTOCOL; Start 09/21/16 at 12:00 Metronidazole (Flagyl) 500 mg QID PO Last administered on 09/27/16 12:53; Admin Dose 500 MG; Start 09/22/16 at 13:00 Methadone HCl (Methadone Liq (Ped)) 2 mg Q6 PO Last administered on 09/27/16 12:53; Admin Dose 2 MG; Start 09/23/16 at 18:00 Hydromorphone HCl (Dilaudid) 1 mg Q3H PRN IV PAIN Last administered on 14:09; Admin Dose 1 MG; Start 09/24/16 at 10:00 SREE GRIFFITH Sep 27, 2016 14:57
[2016-09-27] MEDS: ZOLPIDEM 5 MG TAB PO PRN (19:58)
[2016-09-27 21:16] VITALS: BP 101/71; RESP 18
[2016-09-28] MEDS: PANTOPRAZOLE (EC) 40 MG TAB PO SCH (05:03)
[2016-09-28] MEDS: SOD CHLORIDE 0.9% 1,000 ML IV SCH (05:03)
[2016-09-28] MEDS: METHADONE (1 MG/1 ML PO SYG) PO SCH ×4 (05:03→22:56)
[2016-09-28 05:25] LABS: EOSINOPHILS % 0.1 % (0.0-7.0); HEMATOCRIT 25.7 % (42.0-52.0); HEMOGLOBIN 8.9 g/dl (14.0-18.0); LYMPHOCYTES # 0.8 10^3/ul (0.8-2.9); LYMPHOCYTES % 15.5 % (15.0-51.0); MEAN CORPUSCULAR HEMOGLOBIN 29.2 pg (29.0-33.0); MEAN CORPUSCULAR HGB CONC 34.7 g/dl (32.0-37.0); MEAN CORPUSCULAR VOLUME 83.9 fl (82.0-101.0); MEAN PLATELET VOLUME 6.9 fl (7.4-10.4); MONOCYTE # 0.5 10^3/ul (0.3-0.9); MONOCYTES % 8.8 % (0.0-11.0); NEUTROPHIL # 3.9 10^3/ul (1.6-7.5); NEUTROPHILS % 75.6 % (39.0-77.0); PLATELET COUNT 86 10^3/UL (140-440); RED BLOOD COUNT 3.06 10^6/ul (4.70-6.10); UNCORRECTED WBC 5.2 10^3/ul (4.8-10.8); WHITE BLOOD COUNT 5.2 10^3/ul (4.8-10.8)
[2016-09-28 05:27] LABS: POTASSIUM 3.3 mmol/L (3.5-5.1)
[2016-09-28 05:29] LABS: BILIRUBIN,INDIRECT 0.3 mg/dl (0-1.1); BILIRUBIN,TOTAL 0.3 mg/dl (0.2-1.3); CREATININE 0.31 mg/dl (0.61-1.24)
[2016-09-28 05:30] LABS: ALBUMIN/GLOBULIN RATIO 0.74; CALCIUM 7.2 mg/dl (8.4-10.2); TOTAL PROTEIN 4.7 g/dl (6.1-8.1)
[2016-09-28 05:35] LABS: CONDITION 1; LH ANALYZER COMMENTS 1
[2016-09-28 07:00] VITALS: BP 109/68; RESP 18
[2016-09-28] MEDS: metroNIDAZOLE 500 MG TAB PO SCH ×4 (09:15→20:28)
[2016-09-28] MEDS: ESCITALOPRAM 10 MG TAB PO SCH (09:15)
[2016-09-28] MEDS: CALCIUM/VITAMIN D (500/200) TAB PO SCH ×2 (09:15→20:28)
[2016-09-28] MEDS: MEGESTROL (40 MG/ML) 10ML CUP PO SCH ×2 (09:16→20:29)
[2016-09-28] MEDS: HYDROmorphONE 1 MG/ML SYG IV PRN ×2 (09:21→16:46)
[2016-09-28] MEDS: BICALUTAMIDE 50 MG TAB PO SCH (09:33)
--- NOTE | 2016-09-28 11:02 | CONS ---
Date/Time of Note Date/Time of Note DATE: 09/28/16 TIME: 11:02 Assessment/Plan Assessment/Plan Chief Complaint/Hosp Course Metastatic prostate cancer. POS CHEMO TOMORROW chemotherapy and steroids - PER PROTOCOL Chemotherapy Docetaxel (Taxotere) 30 mg/m2 IV over 30 minutes once per day on days 1, 8, 15, 22, 29 Prednisone (Sterapred) 5 mg PO BID on days 1 to 42 Supportive medications Dexamethasone (Decadron) 8 mg (route not specified) once 1 hour before Docetaxel (Taxotere) Antiemetics "according to local practice" 42-day cycle for up to 5 cycles Thrombocytopenia. Continue to monitor platelets. PANCYTOPENIA MONITOR DECONDITIONING PT Acute on chronic back pain. Dr. Ferguson is following the patient in pain management. Continue methadone and Dilaudid p.r.n. for breakthrough pain. Clostridium difficile colitis. Continue Flagyl and contact isolation. Problems: Consultation Date/Type/Reason Admit Date/Time Sep 06, 2016 at 22:01 Initial Consult Date 09/08/16 Type of Consultation: Hematology/Oncology 24 HR Interval Summary Free Text/Dictation ALL NOTED PT DECIDED TO DO CHEMO D/W FAMILY Exam/Review of Systems Vital Signs Vitals Vital Signs Date Time Temp Pulse Resp B/P Pulse Ox O2 Delivery O2 Flow Rate FiO2 09/28/16 07:00 98.1 102 18 109/68 96 Intake and Output 09/27/16 09/27/16 09/28/16 15:00 23:00 07:00 Intake Total 1300 ml 1580 ml Output Total 500 ml 900 ml Balance 800 ml 680 ml Exam GENERAL: Well-developed, cachectic male, currently is awake, alert. HEENT: Head is atraumatic, normocephalic. PERRLA. NECK: Supple. No mass, no thyromegaly. LUNGS: Clear bilaterally. No rhonchi, wheezes, rales noted. HEART: Normal S1, S2. No murmurs, gallops, clicks, rubs noted. ABDOMEN: Flat, soft, nondistended, nontender. Bowel sounds present. EXTREMITIES: No edema. SKIN: There is no rash, petechiae noted. NEUROLOGIC: The patient is awake, alert, and oriented x3. Results Result Diagram: 09/28/16 0435 09/28/16 0435 Results 24 hrs Laboratory Tests Test 09/28/16 04:35 Alanine Aminotransferase (ALT/SGPT) 20 Albumin 2.0 L Albumin/Globulin Ratio 0.74 Alkaline Phosphatase 1423 H Anion Gap 10 Aspartate Amino Transf (AST/SGOT) 45 Basophils # 0.0 Basophils % 0.0 Blood Morphology Comment Blood Urea Nitrogen 3 L Calcium Level 7.2 L Carbon Dioxide Level 24 Chloride Level 102 Creatinine 0.31 L Direct Bilirubin 0.00 Eosinophils # 0.0 Eosinophils % 0.1 Globulin 2.70 Glucose Level 94 Hematocrit 25.7 L Hemoglobin 8.9 L Indirect Bilirubin 0.3 Lymphocytes # 0.8 Lymphocytes % 15.5 Mean Corpuscular Hemoglobin 29.2 Mean Corpuscular Hemoglobin Concent 34.7 Mean Corpuscular Volume 83.9 Mean Platelet Volume 6.9 L Monocytes # 0.5 Monocytes % 8.8 Neutrophils # 3.9 Neutrophils % 75.6 Nucleated Red Blood Cells # 0.0 Nucleated Red Blood Cells % 0.0 Platelet Count 86 L Potassium Level 3.3 L Red Blood Count 3.06 L Red Cell Distribution Width 17.0 H Sodium Level 133 L Total Bilirubin 0.3 Total Protein 4.7 L White Blood Count 5.2 Medications Medications Current Medications Sodium Chloride (NS) 1,000 ml @ 80 mls/hr [id number] IV Last administered on 09/28 05:03; Admin Dose 80 MLS/HR; Start 09/06/16 at 23:30 Bicalutamide (Casodex) 50 mg QAM PO Last administered on 09/28/16 09:33; Admin Dose 50 MG; Start 09/07/16 at 09:00 Docusate Sodium (Colace) 100 mg BID PRN PO CONSTIPATION Last administered on 07:52; Admin Dose 100 MG; Start 09/07/16 at 00:00 Escitalopram Oxalate (Lexapro) 5 mg DAILY PO Last administered on 09/28/16 09: 15; Admin Dose 5 MG; Start 09/07/16 at 09:00 Megestrol Acetate (Megace Susp) 400 mg BID PO Last administered on 09/28/16 09 :16; Admin Dose 400 MG; Start 09/07/16 at 09:00 Methylnaltrexone [place] (Relistor) 12 mg Q48H SC Last administered on 00:41; Admin Dose 12 MG; Start 09/07/16 at 00:00 Ondansetron HCl (Zofran Tab) 4 mg Q6H PRN PO NAUSEA AND/OR VOMITING Last administered on 09/19/16 05:30; Admin Dose 4 MG; Start 09/07/16 at 00:00 Acetaminophen (Tylenol Tab) 500 mg Q4H PRN PO PAIN AND OR ELEVATED TEMP Last administered on 09/08/16at 21:03; Admin Dose 500 MG; Start 09/07/16 at 21:30 Enoxaparin Sodium (Lovenox) 55 mg Q12H SC Last administered on 09/27/16 22:48 ; Admin Dose 55 MG; Start 09/09/16 at 12:00 IV Flush (NS 10 ml) 10 ml PRN PRN IV IV PROTOCOL; Start 09/11/16 at 10:00 Calcium/Vitamin D (Oyster Shell/ Vit-D (500/200)) 1 tab BID PO Last administered on 09/28/16 09:15; Admin Dose 1 TAB; Start 09/12/16 at 14:00 IV Flush (NS 10 ml) 10 ml PRN PRN IV IV PROTOCOL; Start 09/21/16 at 12:00 Metronidazole (Flagyl) 500 mg QID PO Last administered on 09/28/16 09:15; Admin Dose 500 MG; Start 09/22/16 at 13:00 Methadone HCl (Methadone Liq (Ped)) 2 mg Q6 PO Last administered on 09/28/16 05:03; Admin Dose 2 MG; Start 09/23/16 at 18:00 Hydromorphone HCl (Dilaudid) 1 mg Q3H PRN IV PAIN Last administered on 09:21; Admin Dose 1 MG; Start 09/24/16 at 10:00 JARAD CHOI MD Sep 28, 2016 11:02
--- NOTE | 2016-09-28 11:49 | PN ---
DATE: 09/28/2016 PALLIATIVE CARE PROGRESS NOTE I was asked to speak to Mr. Mcmullen once again. He has been refusing his chemotherapy. When I spoke to him and asked him why he did not answer me, but started to weep and cry and states he does not know what he wants to do at this point. I asked him if he just wants to go home and not continue chemot herapy and he states that he does not know. He wants to speak to family. I have asked him who he wou ld like me to speak to in the family, if he would give me permission, he said he would, but he wants me to speak to Sarah. I put a phone call into Sarah this morning. There was no answer and no answering voicemail. I will continue to try and contact her and schedule a family meeting. I do no t believe that this gentleman wants to continue with aggressive care, but the whole feeling of him i s that he would like to go home rather than be hospitalized. I will try and find out what the home situation is at this point, since he is refusing chemotherapy there is no reason for him to remain i n house. His pain is under reasonably good control and he certainly could go home with methadone and Dilaudid. That final decision is up to Dr. Hernandez and I will discuss with her. Dictated By: FERNANDO KING MD, LP/ADRIANA Conf#: [id number] DID#: [id number]
[2016-09-28] MEDS: ENOXAPARIN 60 MG/0.6 ML SYG SC SCH ×2 (13:12→22:58)
--- NOTE | 2016-09-28 16:19 | PN ---
Date/Time of Note Date/Time of Note DATE: 09/28/16 TIME: 16:12 Assessment/Plan VTE Prophylaxis VTE Prophylaxis Intervention: LMWH Lines/Catheters IV Catheter Type (from Nrsg): PICC Line Central line still needed: Yes Urinary Cath still in place: Yes Reason Cath still needed: urinary retention Assessment/Plan Chief Complaint/Hosp Course ASSESSMENT AND PLAN: 1. Clostridium difficile colitis. Continue Flagyl and contact isolation. 2. Metastatic prostate cancer. Dr. Hernandez is following patient in oncology consultation. Continue chemotherapy and steroids. 3. Thrombocytopenia. Continue to monitor platelets. 4. Acute on chronic back pain. Dr. Ferguson is following the patient in pain management. Continue methadone and Dilaudid p.r.n. for breakthrough pain. Continue Protonix for peptic ulcer disease prophylaxis. Lovenox for deep venous thrombosis prophylaxis. 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 Further recommendations based on clinical course. Plan of care discussed with Dr. Nichols. Problems: Subjective 24 Hr Interval Summary Free Text/Dictation No acute events overnight, poor p.o. intake, pain is well controlled, no diarrhea. Exam/Review of Systems Vital Signs Vitals Vital Signs Date Time Temp Pulse Resp B/P Pulse Ox O2 Delivery O2 Flow Rate FiO2 09/28/16 07:00 98.1 102 18 109/68 96 Intake and Output 09/27/16 09/27/16 09/28/16 15:00 23:00 07:00 Intake Total 1300 ml 1580 ml Output Total 500 ml 900 ml Balance 800 ml 680 ml Exam GENERAL: Well-developed, cachectic male, currently is awake, alert. HEENT: Head is atraumatic, normocephalic. PERRLA. NECK: Supple. No mass, no thyromegaly. LUNGS: Clear bilaterally. No rhonchi, wheezes, rales noted. HEART: Normal S1, S2. No murmurs, gallops, clicks, rubs noted. ABDOMEN: Flat, soft, nondistended, nontender. Bowel sounds present. EXTREMITIES: No edema. SKIN: There is no rash, petechiae noted. NEUROLOGIC: The patient is awake, alert, and oriented x3. Results Result Diagram: 09/28/16 0435 09/28/16 0435 Results 24 hrs Laboratory Tests Test 1/11/17 04:35 Alanine Aminotransferase (ALT/SGPT) 20 Albumin 2.0 L Albumin/Globulin Ratio 0.74 Alkaline Phosphatase 1423 H Anion Gap 10 Aspartate Amino Transf (AST/SGOT) 45 Basophils # 0.0 Basophils % 0.0 Blood Morphology Comment Blood Urea Nitrogen 3 L Calcium Level 7.2 L Carbon Dioxide Level 24 Chloride Level 102 Creatinine 0.31 L Direct Bilirubin 0.00 Eosinophils # 0.0 Eosinophils % 0.1 Globulin 2.70 Glucose Level 94 Hematocrit 25.7 L Hemoglobin 8.9 L Indirect Bilirubin 0.3 Lymphocytes # 0.8 Lymphocytes % 15.5 Mean Corpuscular Hemoglobin 29.2 Mean Corpuscular Hemoglobin Concent 34.7 Mean Corpuscular Volume 83.9 Mean Platelet Volume 6.9 L Monocytes # 0.5 Monocytes % 8.8 Neutrophils # 3.9 Neutrophils % 75.6 Nucleated Red Blood Cells # 0.0 Nucleated Red Blood Cells % 0.0 Platelet Count 86 L Potassium Level 3.3 L Red Blood Count 3.06 L Red Cell Distribution Width 17.0 H Sodium Level 133 L Total Bilirubin 0.3 Total Protein 4.7 L White Blood Count 5.2 Medications Medications Current Medications Sodium Chloride (NS) 1,000 ml @ 80 mls/hr [id number] IV Last administered on 09/28 05:03; Admin Dose 80 MLS/HR; Start 09/06/16 at 23:30 Bicalutamide (Casodex) 50 mg QAM PO Last administered on 09/28/16 09:33; Admin Dose 50 MG; Start 09/07/16 at 09:00 Docusate Sodium (Colace) 100 mg BID PRN PO CONSTIPATION Last administered on 07:52; Admin Dose 100 MG; Start 09/07/16 at 00:00 Escitalopram Oxalate (Lexapro) 5 mg DAILY PO Last administered on 09/28/16 09: 15; Admin Dose 5 MG; Start 09/07/16 at 09:00 Megestrol Acetate (Megace Susp) 400 mg BID PO Last administered on 09/28/16 09 :16; Admin Dose 400 MG; Start 09/07/16 at 09:00 Methylnaltrexone [place] (Relistor) 12 mg Q48H SC Last administered on 00:41; Admin Dose 12 MG; Start 09/07/16 at 00:00 Ondansetron HCl (Zofran Tab) 4 mg Q6H PRN PO NAUSEA AND/OR VOMITING Last administered on 09/19/16 05:30; Admin Dose 4 MG; Start 09/07/16 at 00:00 Acetaminophen (Tylenol Tab) 500 mg Q4H PRN PO PAIN AND OR ELEVATED TEMP Last administered on 09/08/16at 21:03; Admin Dose 500 MG; Start 09/07/16 at 21:30 Enoxaparin Sodium (Lovenox) 55 mg Q12H SC Last administered on 09/28/16 13:12 ; Admin Dose 55 MG; Start 09/09/16 at 12:00 IV Flush (NS 10 ml) 10 ml PRN PRN IV IV PROTOCOL; Start 09/11/16 at 10:00 Calcium/Vitamin D (Oyster Shell/ Vit-D (500/200)) 1 tab BID PO Last administered on 09/28/16 09:15; Admin Dose 1 TAB; Start 09/12/16 at 14:00 IV Flush (NS 10 ml) 10 ml PRN PRN IV IV PROTOCOL; Start 09/21/16 at 12:00 Metronidazole (Flagyl) 500 mg QID PO Last administered on 09/28/16 13:05; Admin Dose 500 MG; Start 09/22/16 at 13:00 Methadone HCl (Methadone Liq (Ped)) 2 mg Q6 PO Last administered on 09/28/16 13:05; Admin Dose 2 MG; Start 09/23/16 at 18:00 Hydromorphone HCl (Dilaudid) 1 mg Q3H PRN IV PAIN Last administered on 09:21; Admin Dose 1 MG; Start 09/24/16 at 10:00 SREE GRIFFITH Sep 28, 2016 16:19
[2016-09-28] MEDS ORDERED: POTASSIUM CHLORIDE 20 MEQ POWDER FOR ORAL SOLN PO ONE (16:30)
[2016-09-28 20:00] VITALS: BP 107/65; RESP 19
[2016-09-28] MEDS: ZOLPIDEM 5 MG TAB PO PRN (20:28)
[2016-09-28] MEDS: NS + KCL 20 MEQ 1,000 ML IV SCH (20:45)
[2016-09-28] MEDS: METHYLNALTREXONE 12 MG/0.6 ML VIAL SC SCH (22:59)
[2016-09-29] VITALS (9 sets, daily range): BP systolic 105–125; BP diastolic 68–82; PULSE 96–114; RESP 17–20
[2016-09-29] MEDS: ACETAMINOPHEN 500 MG TAB PO PRN (00:08)
[2016-09-29] MEDS: PANTOPRAZOLE (EC) 40 MG TAB PO SCH (04:27)
[2016-09-29] MEDS: METHADONE (1 MG/1 ML PO SYG) PO SCH ×4 (04:27→23:38)
[2016-09-29] MEDS: NS + KCL 20 MEQ 1,000 ML IV SCH ×3 (04:29→23:45)
[2016-09-29 05:26] LABS: BASOPHILS % 0.1 % (0.0-2.0); HEMATOCRIT 24.4 % (42.0-52.0); HEMOGLOBIN 8.3 g/dl (14.0-18.0); LYMPHOCYTES # 1.1 10^3/ul (0.8-2.9); LYMPHOCYTES % 18.8 % (15.0-51.0); MEAN CORPUSCULAR HEMOGLOBIN 28.8 pg (29.0-33.0); MEAN CORPUSCULAR HGB CONC 34.2 g/dl (32.0-37.0); MEAN CORPUSCULAR VOLUME 84.5 fl (82.0-101.0); MONOCYTE # 0.5 10^3/ul (0.3-0.9); MONOCYTES % 7.5 % (0.0-11.0); NEUTROPHIL # 4.5 10^3/ul (1.6-7.5); NEUTROPHILS % 73.6 % (39.0-77.0); PLATELET COUNT 87 10^3/UL (140-440); RED BLOOD COUNT 2.89 10^6/ul (4.70-6.10); RED CELL DISTRIBUTION WIDTH 17.3 % (11.5-14.5); UNCORRECTED WBC 6.1 10^3/ul (4.8-10.8); WHITE BLOOD COUNT 6.1 10^3/ul (4.8-10.8)
[2016-09-29 05:33] LABS: ALBUMIN 2.1 g/dl (3.3-4.9)
[2016-09-29 05:34] LABS: POTASSIUM 3.6 mmol/L (3.5-5.1)
[2016-09-29 05:36] LABS: ALBUMIN/GLOBULIN RATIO 0.77; BILIRUBIN,INDIRECT 0.4 mg/dl (0-1.1); BILIRUBIN,TOTAL 0.4 mg/dl (0.2-1.3); CREATININE 0.29 mg/dl (0.61-1.24); TOTAL PROTEIN 4.8 g/dl (6.1-8.1)
[2016-09-29 05:37] LABS: CALCIUM 7.1 mg/dl (8.4-10.2)
[2016-09-29 05:42] LABS: CONDITION 1; LH ANALYZER COMMENTS 1
[2016-09-29] MEDS: HYDROmorphONE 1 MG/ML SYG IV PRN ×3 (05:59→19:45)
[2016-09-29] MEDS: MEGESTROL (40 MG/ML) 10ML CUP PO SCH ×2 (11:02→21:02)
[2016-09-29] MEDS: ESCITALOPRAM 10 MG TAB PO SCH (11:03)
[2016-09-29] MEDS: CALCIUM/VITAMIN D (500/200) TAB PO SCH ×2 (11:03→21:01)
[2016-09-29] MEDS: metroNIDAZOLE 500 MG TAB PO SCH ×4 (11:03→21:01)
[2016-09-29] MEDS: BICALUTAMIDE 50 MG TAB PO SCH (11:10)
[2016-09-29] MEDS: ENOXAPARIN 60 MG/0.6 ML SYG SC SCH ×3 (12:00→23:37)
[2016-09-29] MEDS ORDERED: POTASSIUM CHLORIDE 40 MEQ in SOD CHLORIDE 0.45% 980 ML IV SCH (20:00)
[2016-09-29] MEDS ORDERED: ONDANSETRON IV ONE ×2 (21:00)
[2016-09-29] MEDS ORDERED: DEXAMETHASONE IV ONE ×2 (21:00)
[2016-09-29] MEDS ORDERED: DEXTROSE 5% IV ONE ×2 (21:00)
[2016-09-29] MEDS: predniSONE 5 MG TAB PO SCH (21:01)
--- NOTE | 2016-09-29 21:03 | PN ---
Date/Time of Note Date/Time of Note DATE: 09/29/16 TIME: 21:02 Assessment/Plan VTE Prophylaxis VTE Prophylaxis Intervention: SCD's Lines/Catheters IV Catheter Type (from Nrsg): PICC Line Central line still needed: Yes Urinary Cath still in place: Yes Reason Cath still needed: urinary retention Assessment/Plan Assessment/Plan 1. Clostridium difficile colitis. Continue Flagyl and contact isolation. 2. Metastatic prostate cancer. - per Dr. Hernandez in oncology consultation. Continue chemotherapy and steroids. 3. Thrombocytopenia. Continue to monitor platelets. 4. Acute on chronic back pain. - per Dr. Ferguson in pain management. Continue methadone and Dilaudid p.r.n. for breakthrough pain. Continue Protonix for peptic ulcer disease prophylaxis. Lovenox for deep venous thrombosis prophylaxis. 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 Further recommendations based on clinical course. Plan of care discussed with Dr. Nichols. Subjective 24 Hr Interval Summary Constitutional: requiring IVF, requiring O2 Gastrointestinal: nausea Musculoskeletal: back pain Exam/Review of Systems Vital Signs Vitals Vital Signs Date Time Temp Pulse Resp B/P Pulse Ox O2 Delivery O2 Flow Rate FiO2 09/29/16 20:09 98.3 114 17 111/68 95 Room Air Intake and Output 09/28/16 09/28/16 09/29/16 15:00 23:00 07:00 Intake Total 1200 ml 1290 ml Output Total 1300 ml 950 ml Balance -100 ml 340 ml Exam Constitutional: alert, oriented Psych: no complaints Head: atraumatic Eyes: EOMI ENMT: nl external ears & nose Neck: non-tender Respiratory: clear to auscultation Gastrointestinal: soft Musculoskeletal: nl extremities to inspection Extremities: normal pulses 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: nl mental status, nl speech Skin: nl turgor Lymph: nontender Results Result Diagram: 09/29/16 0430 09/29/16 0430 Results 24 hrs Laboratory Tests Test 09/29/16 04:30 Alanine Aminotransferase (ALT/SGPT) 25 Albumin 2.1 L Albumin/Globulin Ratio 0.77 Alkaline Phosphatase 1554 H Anion Gap 13 Aspartate Amino Transf (AST/SGOT) 57 H Basophils # 0.0 Basophils % 0.1 Blood Morphology Comment Blood Urea Nitrogen 4 L Calcium Level 7.1 L Carbon Dioxide Level 23 Chloride Level 102 Creatinine 0.29 L Direct Bilirubin 0.00 Eosinophils # 0.0 Eosinophils % 0.0 Globulin 2.70 Glucose Level 105 Hematocrit 24.4 L Hemoglobin 8.3 L Indirect Bilirubin 0.4 Lymphocytes # 1.1 Lymphocytes % 18.8 Mean Corpuscular Hemoglobin 28.8 L Mean Corpuscular Hemoglobin Concent 34.2 Mean Corpuscular Volume 84.5 Mean Platelet Volume 7.0 L Monocytes # 0.5 Monocytes % 7.5 Neutrophils # 4.5 Neutrophils % 73.6 Nucleated Red Blood Cells # 0.0 Nucleated Red Blood Cells % 0.0 Platelet Count 87 L Potassium Level 3.6 Red Blood Count 2.89 L Red Cell Distribution Width 17.3 H Sodium Level 134 L Total Bilirubin 0.4 Total Protein 4.8 L White Blood Count 6.1 Medications Medications Current Medications Bicalutamide (Casodex) 50 mg QAM PO Last administered on 09/29/16 11:10; Admin Dose 50 MG; Start 09/07/16 at 09:00 Docusate Sodium (Colace) 100 mg BID PRN PO CONSTIPATION Last administered on 07:52; Admin Dose 100 MG; Start 09/07/16 at 00:00 Escitalopram Oxalate (Lexapro) 5 mg DAILY PO Last administered on 09/29/16 11: 03; Admin Dose 5 MG; Start 09/07/16 at 09:00 Megestrol Acetate (Megace Susp) 400 mg BID PO Last administered on 09/29/16 11 :02; Admin Dose 400 MG; Start 09/07/16 at 09:00 Methylnaltrexone [place] (Relistor) 12 mg Q48H SC Last administered on 00:41; Admin Dose 12 MG; Start 09/07/16 at 00:00 Ondansetron HCl (Zofran Tab) 4 mg Q6H PRN PO NAUSEA AND/OR VOMITING Last administered on 09/19/16 05:30; Admin Dose 4 MG; Start 09/07/16 at 00:00 Acetaminophen (Tylenol Tab) 500 mg Q4H PRN PO PAIN AND OR ELEVATED TEMP Last administered on 09/29/16 00:08; Admin Dose 500 MG; Start 09/07/16 at 21:30 Enoxaparin Sodium (Lovenox) 55 mg Q12H SC Last administered on 09/29/16 14:30 ; Admin Dose 55 MG; Start 09/09/16 at 12:00 IV Flush (NS 10 ml) 10 ml PRN PRN IV IV PROTOCOL; Start 09/11/16 at 10:00 Calcium/Vitamin D ([place]yster [place]/ Vit-D (500/200)) 1 tab BID PO Last administered on 09/29/16 11:03; Admin Dose 1 TAB; Start 09/12/16 at 14:00 IV Flush (NS 10 ml) 10 ml PRN PRN IV IV PROTOCOL; Start 09/21/16 at 12:00 Metronidazole (Flagyl) 500 mg QID PO Last administered on 09/29/16 17:20; Admin Dose 500 MG; Start 09/22/16 at 13:00 Methadone HCl (Methadone Liq (Ped)) 2 mg Q6 PO Last administered on 09/29/16 17:20; Admin Dose 2 MG; Start 09/23/16 at 18:00 Hydromorphone HCl 1 mg 1 mg Q3H PRN IV PAIN Last administered on 09/29/16 19: 45; Admin Dose 1 MG; Start 09/24/16 at 10:00 Potassium Chloride/Sodium Chloride 1,000 ml @ 70 mls/hr [id number] IV Last administered on 09/29/16 04:29; Admin Dose 70 MLS/HR; Start 09/28/16 at 16:30 Potassium Chloride 40 meq/ Sodium Chloride 1,000 ml @ 100 mls/hr Q10H IV Last administered on 09/29/16 20:01; Admin Dose 100 MLS/HR; Start 09/29/16 at 20:00 ; Stop 09/29/16 at 22:00 Ondansetron HCl/ Sodium Chloride (Zofran Inj/NS) 54 ml @ 216 mls/hr Q12H PRN IV NAUSEA AND/OR VOMITING; Start 09/29/16 at 22:00 Prednisone 5 mg 5 mg BID PO ; Start 09/29/16 at 21:00 Docetaxel 45 mg/ Sodium Chloride 100 ml @ 100 mls/hr Th@22 IV ; Start 09/29/16 at 22:00 Ondansetron HCl/ Dexamethasone/ Dextrose (Zofran Inj/ Decadron/D5W) 60 ml @ 252 mls/hr ONCE ONCE IV ; Start 09/29/16 at 21:00; Stop 09/29/16 at 21:14 KENDAL BELLO Sep 29, 2016 21:03
--- NOTE | 2016-09-29 21:33 | CONS ---
Date/Time of Note Date/Time of Note DATE: 09/29/16 TIME: 21:32 Assessment/Plan Assessment/Plan Chief Complaint/Hosp Course Metastatic prostate cancer. Continue chemotherapy and steroids - PER PROTOCOL Chemotherapy Docetaxel (Taxotere) 30 mg/m2 IV over 30 minutes once per day on days 1, 8, 15, 22, 29 Prednisone (Sterapred) 5 mg PO BID on days 1 to 42 Supportive medications Dexamethasone (Decadron) 8 mg (route not specified) once 1 hour before Docetaxel (Taxotere) Antiemetics "according to local practice" 42-day cycle for up to 5 cycles Thrombocytopenia. Continue to monitor platelets. PANCYTOPENIA MONITOR DECONDITIONING PT Acute on chronic back pain. Dr. Ferguson is following the patient in pain management. Continue methadone and Dilaudid p.r.n. for breakthrough pain. Clostridium difficile colitis. Continue Flagyl and contact isolation. Problems: Consultation Date/Type/Reason Admit Date/Time Sep 06, 2016 at 22:01 Initial Consult Date 09/08/16 Type of Consultation: Hematology/Oncology Referring Provider: TIMOTHY MARAVILLA MD 24 HR Interval Summary Free Text/Dictation CHEMO TODAY D/W FAMILY Exam/Review of Systems Vital Signs Vitals Vital Signs Date Time Temp Pulse Resp B/P Pulse Ox O2 Delivery O2 Flow Rate FiO2 09/29/16 20:09 98.3 114 17 111/68 95 Room Air Intake and Output 09/28/16 09/28/16 09/29/16 15:00 23:00 07:00 Intake Total 1200 ml 1290 ml Output Total 1300 ml 950 ml Balance -100 ml 340 ml Results Result Diagram: 09/29/16 0430 09/29/16 0430 Results 24 hrs Laboratory Tests Test 09/29/16 04:30 Alanine Aminotransferase (ALT/SGPT) 25 Albumin 2.1 L Albumin/Globulin Ratio 0.77 Alkaline Phosphatase 1554 H Anion Gap 13 Aspartate Amino Transf (AST/SGOT) 57 H Basophils # 0.0 Basophils % 0.1 Blood Morphology Comment Blood Urea Nitrogen 4 L Calcium Level 7.1 L Carbon Dioxide Level 23 Chloride Level 102 Creatinine 0.29 L Direct Bilirubin 0.00 Eosinophils # 0.0 Eosinophils % 0.0 Globulin 2.70 Glucose Level 105 Hematocrit 24.4 L Hemoglobin 8.3 L Indirect Bilirubin 0.4 Lymphocytes # 1.1 Lymphocytes % 18.8 Mean Corpuscular Hemoglobin 28.8 L Mean Corpuscular Hemoglobin Concent 34.2 Mean Corpuscular Volume 84.5 Mean Platelet Volume 7.0 L Monocytes # 0.5 Monocytes % 7.5 Neutrophils # 4.5 Neutrophils % 73.6 Nucleated Red Blood Cells # 0.0 Nucleated Red Blood Cells % 0.0 Platelet Count 87 L Potassium Level 3.6 Red Blood Count 2.89 L Red Cell Distribution Width 17.3 H Sodium Level 134 L Total Bilirubin 0.4 Total Protein 4.8 L White Blood Count 6.1 Medications Medications Current Medications Bicalutamide (Casodex) 50 mg QAM PO Last administered on 09/29/16 11:10; Admin Dose 50 MG; Start 09/07/16 at 09:00 Docusate Sodium (Colace) 100 mg BID PRN PO CONSTIPATION Last administered on 07:52; Admin Dose 100 MG; Start 09/07/16 at 00:00 Escitalopram Oxalate (Lexapro) 5 mg DAILY PO Last administered on 09/29/16 11: 03; Admin Dose 5 MG; Start 09/07/16 at 09:00 Megestrol Acetate (Megace Susp) 400 mg BID PO Last administered on 09/29/16 21 :02; Admin Dose 400 MG; Start 09/07/16 at 09:00 Methylnaltrexone [place] (Relistor) 12 mg Q48H SC Last administered on 00:41; Admin Dose 12 MG; Start 09/07/16 at 00:00 Ondansetron HCl (Zofran Tab) 4 mg Q6H PRN PO NAUSEA AND/OR VOMITING Last administered on 09/19/16 05:30; Admin Dose 4 MG; Start 09/07/16 at 00:00 Acetaminophen (Tylenol Tab) 500 mg Q4H PRN PO PAIN AND OR ELEVATED TEMP Last administered on 09/29/16 00:08; Admin Dose 500 MG; Start 09/07/16 at 21:30 Enoxaparin Sodium (Lovenox) 55 mg Q12H SC Last administered on 09/29/16 14:30 ; Admin Dose 55 MG; Start 09/09/16 at 12:00 IV Flush (NS 10 ml) 10 ml PRN PRN IV IV PROTOCOL; Start 09/11/16 at 10:00 Calcium/Vitamin D (Oyster Shell/ Vit-D (500/200)) 1 tab BID PO Last administered on 09/29/16 21:01; Admin Dose 1 TAB; Start 09/12/16 at 14:00 IV Flush (NS 10 ml) 10 ml PRN PRN IV IV PROTOCOL; Start 09/21/16 at 12:00 Metronidazole (Flagyl) 500 mg QID PO Last administered on 09/29/16 21:01; Admin Dose 500 MG; Start 09/22/16 at 13:00 Methadone HCl (Methadone Liq (Ped)) 2 mg Q6 PO Last administered on 09/29/16 17:20; Admin Dose 2 MG; Start 09/23/16 at 18:00 Hydromorphone HCl 1 mg 1 mg Q3H PRN IV PAIN Last administered on 09/29/16 19: 45; Admin Dose 1 MG; Start 09/24/16 at 10:00 Potassium Chloride/Sodium Chloride 1,000 ml @ 70 mls/hr [id number] IV Last administered on 09/29/16 04:29; Admin Dose 70 MLS/HR; Start 09/28/16 at 16:30 Potassium Chloride 40 meq/ Sodium Chloride 1,000 ml @ 100 mls/hr Q10H IV Last administered on 09/29/16 20:01; Admin Dose 100 MLS/HR; Start 09/29/16 at 20:00 ; Stop 09/29/16 at 22:00 Ondansetron HCl/ Sodium Chloride (Zofran Inj/NS) 54 ml @ 216 mls/hr Q12H PRN IV NAUSEA AND/OR VOMITING; Start 09/29/16 at 22:00 Prednisone 5 mg 5 mg BID PO Last administered on 09/29/16 21:01; Admin Dose 5 MG; Start 09/29/16 at 21:00 Docetaxel/Sodium Chloride (taxoTERE/NS) 100 ml @ 100 mls/hr Th@22 IV ; Start at 22:00; Stop 09/29/16 at 23:59 JARAD CHOI MD Sep 29, 2016 21:33
[2016-09-29] MEDS ORDERED: DOCETAXEL IV SCH ×4 (22:00)
[2016-09-29] MEDS ORDERED: SOD CHLORIDE 0.9% IV SCH ×4 (22:00)
[2016-09-29] MEDS ORDERED: ONDANSETRON INJ 8 MG in SOD CHLORIDE 0.9% 50 ML IV PRN (22:00)
[2016-09-30] VITALS (11 sets, daily range): BP systolic 102–117; BP diastolic 66–80; PULSE 86–101; RESP 16–19
[2016-09-30] MEDS: HYDROmorphONE 1 MG/ML SYG IV PRN ×6 (00:06→22:55)
[2016-09-30] MEDS: METHADONE (1 MG/1 ML PO SYG) PO SCH ×3 (05:51→17:23)
[2016-09-30 06:02] LABS: EOSINOPHILS % 0.1 % (0.0-7.0); HEMATOCRIT 27.9 % (42.0-52.0); HEMOGLOBIN 9.6 g/dl (14.0-18.0); LYMPHOCYTES # 0.8 10^3/ul (0.8-2.9); LYMPHOCYTES % 13.6 % (15.0-51.0); MEAN CORPUSCULAR HEMOGLOBIN 29.1 pg (29.0-33.0); MEAN CORPUSCULAR HGB CONC 34.3 g/dl (32.0-37.0); MEAN CORPUSCULAR VOLUME 84.8 fl (82.0-101.0); MEAN PLATELET VOLUME 7.6 fl (7.4-10.4); MONOCYTE # 0.3 10^3/ul (0.3-0.9); MONOCYTES % 5.5 % (0.0-11.0); NEUTROPHIL # 4.8 10^3/ul (1.6-7.5); NEUTROPHILS % 80.8 % (39.0-77.0); PLATELET COUNT 79 10^3/UL (140-440); RED BLOOD COUNT 3.29 10^6/ul (4.70-6.10); UNCORRECTED WBC 5.9 10^3/ul (4.8-10.8); WHITE BLOOD COUNT 5.9 10^3/ul (4.8-10.8)
[2016-09-30 06:20] LABS: CONDITION 1; LH ANALYZER COMMENTS 1
[2016-09-30 06:36] LABS: ALBUMIN 2.2 g/dl (3.3-4.9); POTASSIUM 4.4 mmol/L (3.5-5.1)
[2016-09-30 06:38] LABS: CREATININE 0.31 mg/dl (0.61-1.24)
[2016-09-30 06:39] LABS: ALBUMIN/GLOBULIN RATIO 0.75; BILIRUBIN,INDIRECT 0.4 mg/dl (0-1.1); BILIRUBIN,TOTAL 0.4 mg/dl (0.2-1.3); TOTAL PROTEIN 5.1 g/dl (6.1-8.1)
[2016-09-30] MEDS: CALCIUM/VITAMIN D (500/200) TAB PO SCH ×2 (09:16→20:17)
[2016-09-30] MEDS: ESCITALOPRAM 10 MG TAB PO SCH (09:16)
[2016-09-30] MEDS: predniSONE 5 MG TAB PO SCH ×2 (09:16→20:17)
[2016-09-30] MEDS: MEGESTROL (40 MG/ML) 10ML CUP PO SCH ×2 (09:16→20:18)
[2016-09-30] MEDS: metroNIDAZOLE 500 MG TAB PO SCH ×4 (09:16→20:17)
[2016-09-30] MEDS: PANTOPRAZOLE (EC) 40 MG TAB PO SCH (09:17)
[2016-09-30] MEDS: BICALUTAMIDE 50 MG TAB PO SCH (10:04)
--- NOTE | 2016-09-30 10:19 | CONS ---
Date/Time of Note Date/Time of Note DATE: 09/30/16 TIME: 10:18 Assessment/Plan Assessment/Plan Chief Complaint/Hosp Course Metastatic prostate cancer. Continue chemotherapy and steroids - PER PROTOCOL Chemotherapy Docetaxel (Taxotere) 30 mg/m2 IV over 30 minutes once per day on days 1, 8, 15, 22, 29 Prednisone (Sterapred) 5 mg PO BID on days 1 to 42 Supportive medications Dexamethasone (Decadron) 8 mg (route not specified) once 1 hour before Docetaxel (Taxotere) Antiemetics "according to local practice" 42-day cycle for up to 5 cycles Thrombocytopenia. Continue to monitor platelets. PANCYTOPENIA MONITOR DECONDITIONING PT Acute on chronic back pain. Dr. Ferguson is following the patient in pain management. Continue methadone and Dilaudid p.r.n. for breakthrough pain. Clostridium difficile colitis. Continue Flagyl and contact isolation. Problems: Consultation Date/Type/Reason Admit Date/Time Sep 06, 2016 at 22:01 Initial Consult Date 09/08/16 Type of Consultation: Hematology/Oncology 24 HR Interval Summary Free Text/Dictation ALL NOTED POST CHEMO D/W RN AND SISTER Exam/Review of Systems Vital Signs Vitals Vital Signs Date Time Temp Pulse Resp B/P Pulse Ox O2 Delivery O2 Flow Rate FiO2 09/30/16 07:58 97.8 92 16 115/72 97 09/30/16 05:55 Room Air Intake and Output 09/29/16 09/29/16 09/30/16 15:00 23:00 07:00 Intake Total 1270 ml 570 ml Output Total 1300 ml 1500 ml Balance -30 ml -930 ml Exam Exam GENERAL: Well-developed, cachectic male, currently is awake, alert. HEENT: Head is atraumatic, normocephalic. PERRLA. NECK: Supple. No mass, no thyromegaly. LUNGS: Clear bilaterally. No rhonchi, wheezes, rales noted. HEART: Normal S1, S2. No murmurs, gallops, clicks, rubs noted. ABDOMEN: Flat, soft, nondistended, nontender. Bowel sounds present. EXTREMITIES: No edema. SKIN: There is no rash, petechiae noted. NEUROLOGIC: The patient is awake, alert, and oriented x3. Results Result Diagram: 09/30/1642409/30/16424 Results 24 hrs Laboratory Tests Test 09/30/16 04:25 Alanine Aminotransferase (ALT/SGPT) 23 Albumin 2.2 L Albumin/Globulin Ratio 0.75 Alkaline Phosphatase 1782 H Anion Gap 13 Aspartate Amino Transf (AST/SGOT) 68 H Basophils # 0.0 Basophils % 0.0 Blood Morphology Comment Blood Urea Nitrogen 5 L Calcium Level 7.0 L Carbon Dioxide Level 23 Chloride Level 102 Creatinine 0.31 L Direct Bilirubin 0.00 Eosinophils # 0.0 Eosinophils % 0.1 Globulin 2.90 Glucose Level 144 Hematocrit 27.9 L Hemoglobin 9.6 L Indirect Bilirubin 0.4 Lymphocytes # 0.8 Lymphocytes % 13.6 L Mean Corpuscular Hemoglobin 29.1 Mean Corpuscular Hemoglobin Concent 34.3 Mean Corpuscular Volume 84.8 Mean Platelet Volume 7.6 Monocytes # 0.3 Monocytes % 5.5 Neutrophils # 4.8 Neutrophils % 80.8 H Nucleated Red Blood Cells # 0.0 Nucleated Red Blood Cells % 0.0 Platelet Count 79 L Potassium Level 4.4 Red Blood Count 3.29 L Red Cell Distribution Width 17.0 H Sodium Level 134 L Total Bilirubin 0.4 Total Protein 5.1 L White Blood Count 5.9 Medications Medications Current Medications Bicalutamide (Casodex) 50 mg QAM PO Last administered on 09/30/16 10:04; Admin Dose 50 MG; Start 09/07/16 at 09:00 Docusate Sodium (Colace) 100 mg BID PRN PO CONSTIPATION Last administered on 07:52; Admin Dose 100 MG; Start 09/07/16 at 00:00 Escitalopram Oxalate (Lexapro) 5 mg DAILY PO Last administered on 09/30/16 09: 16; Admin Dose 5 MG; Start 09/07/16 at 09:00 Megestrol Acetate (Megace Susp) 400 mg BID PO Last administered on 09/30/16 09 :16; Admin Dose 400 MG; Start 09/07/16 at 09:00 Methylnaltrexone [place] (Relistor) 12 mg Q48H SC Last administered on 00:41; Admin Dose 12 MG; Start 09/07/16 at 00:00 Ondansetron HCl (Zofran Tab) 4 mg Q6H PRN PO NAUSEA AND/OR VOMITING Last administered on 09/19/16 05:30; Admin Dose 4 MG; Start 09/07/16 at 00:00 Acetaminophen (Tylenol Tab) 500 mg Q4H PRN PO PAIN AND OR ELEVATED TEMP Last administered on 09/29/16 00:08; Admin Dose 500 MG; Start 09/07/16 at 21:30 Enoxaparin Sodium (Lovenox) 55 mg Q12H SC Last administered on 09/29/16 23:37 ; Admin Dose 55 MG; Start 09/09/16 at 12:00 IV Flush (NS 10 ml) 10 ml PRN PRN IV IV PROTOCOL; Start 09/11/16 at 10:00 Calcium/Vitamin D (Oyster Shell/ Vit-D (500/200)) 1 tab BID PO Last administered on 09/30/16 09:16; Admin Dose 1 TAB; Start 09/12/16 at 14:00 IV Flush (NS 10 ml) 10 ml PRN PRN IV IV PROTOCOL; Start 09/21/16 at 12:00 Metronidazole (Flagyl) 500 mg QID PO Last administered on 09/30/16 09:16; Admin Dose 500 MG; Start 09/22/16 at 13:00 Methadone HCl (Methadone Liq (Ped)) 2 mg Q6 PO Last administered on 09/30/16 05:51; Admin Dose 2 MG; Start 09/23/16 at 18:00 Hydromorphone HCl 1 mg 1 mg Q3H PRN IV PAIN Last administered on 09/30/16 03: 50; Admin Dose 1 MG; Start 09/24/16 at 10:00 Potassium Chloride/Sodium Chloride 1,000 ml @ 70 mls/hr [id number] IV Last administered on 09/29/16 23:45; Admin Dose 70 MLS/HR; Start 09/28/16 at 16:30 Ondansetron HCl/ Sodium Chloride (Zofran Inj/NS) 54 ml @ 216 mls/hr Q12H PRN IV NAUSEA AND/OR VOMITING; Start 09/29/16 at 22:00 Prednisone (Prednisone) 5 mg BID PO Last administered on 09/30/16 09:16; Admin Dose 5 MG; Start 09/29/16 at 21:00 JARAD CHOI MD Sep 30, 2016 10:18
[2016-09-30] MEDS: ENOXAPARIN 60 MG/0.6 ML SYG SC SCH (12:32)
[2016-09-30] MEDS: NS + KCL 20 MEQ 1,000 ML IV SCH (15:55)
--- NOTE | 2016-09-30 18:12 | PN ---
Date/Time of Note Date/Time of Note DATE: 09/30/16 TIME: 18:11 Assessment/Plan VTE Prophylaxis VTE Prophylaxis Intervention: SCD's Lines/Catheters IV Catheter Type (from Nrs): PICC Line Urinary Cath still in place: Yes Assessment/Plan Chief Complaint/Hosp Course ASSESSMENT AND PLAN: 1. Clostridium difficile colitis. Continue Flagyl and contact isolation. 2. Metastatic prostate cancer. Dr. Hernandez is following patient in oncology consultation. Continue chemotherapy and steroids. 3. Thrombocytopenia. Continue to monitor platelets. 4. Acute on chronic back pain. Dr. Ferguson is following the patient in pain management. Continue methadone and Dilaudid p.r.n. for breakthrough pain. Continue Protonix for peptic ulcer disease prophylaxis. Lovenox for deep venous thrombosis prophylaxis. 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 Further recommendations based on clinical course. Plan of care discussed with Dr. Nichols. Problems: Subjective 24 Hr Interval Summary Free Text/Dictation Patient status post chemotherapy, stated the pain is well controlled, no nausea vomiting, generalized weakness. Exam/Review of Systems Vital Signs Vitals Vital Signs Date Time Temp Pulse Resp B/P Pulse Ox O2 Delivery O2 Flow Rate FiO2 09/30/16 07:58 97.8 92 16 115/72 97 09/30/16 05:55 Room Air Intake and Output 09/29/16 09/29/16 09/30/16 15:00 23:00 07:00 Intake Total 1270 ml 570 ml Output Total 1300 ml 1500 ml Balance -30 ml -930 ml Exam GENERAL: Well-developed, cachectic male, currently is awake, alert. HEENT: Head is atraumatic, normocephalic. PERRLA. NECK: Supple. No mass, no thyromegaly. LUNGS: Clear bilaterally. No rhonchi, wheezes, rales noted. HEART: Normal S1, S2. No murmurs, gallops, clicks, rubs noted. ABDOMEN: Flat, soft, nondistended, nontender. Bowel sounds present. EXTREMITIES: No edema. SKIN: There is no rash, petechiae noted. NEUROLOGIC: The patient is awake, alert, and oriented x3. Results Result Diagram: 09/30/16 0425 09/30/16 0425 Results 24 hrs Laboratory Tests Test 1/13/17 04:25 Alanine Aminotransferase (ALT/SGPT) 23 Albumin 2.2 L Albumin/Globulin Ratio 0.75 Alkaline Phosphatase 1782 H Anion Gap 13 Aspartate Amino Transf (AST/SGOT) 68 H Basophils # 0.0 Basophils % 0.0 Blood Morphology Comment Blood Urea Nitrogen 5 L Calcium Level 7.0 L Carbon Dioxide Level 23 Chloride Level 102 Creatinine 0.31 L Direct Bilirubin 0.00 Eosinophils # 0.0 Eosinophils % 0.1 Globulin 2.90 Glucose Level 144 Hematocrit 27.9 L Hemoglobin 9.6 L Indirect Bilirubin 0.4 Lymphocytes # 0.8 Lymphocytes % 13.6 L Mean Corpuscular Hemoglobin 29.1 Mean Corpuscular Hemoglobin Concent 34.3 Mean Corpuscular Volume 84.8 Mean Platelet Volume 7.6 Monocytes # 0.3 Monocytes % 5.5 Neutrophils # 4.8 Neutrophils % 80.8 H Nucleated Red Blood Cells # 0.0 Nucleated Red Blood Cells % 0.0 Platelet Count 79 L Potassium Level 4.4 Red Blood Count 3.29 L Red Cell Distribution Width 17.0 H Sodium Level 134 L Total Bilirubin 0.4 Total Protein 5.1 L White Blood Count 5.9 Medications Medications Current Medications Bicalutamide (Casodex) 50 mg QAM PO Last administered on 09/30/16 10:04; Admin Dose 50 MG; Start 09/07/16 at 09:00 Docusate Sodium (Colace) 100 mg BID PRN PO CONSTIPATION Last administered on 07:52; Admin Dose 100 MG; Start 09/07/16 at 00:00 Escitalopram Oxalate (Lexapro) 5 mg DAILY PO Last administered on 09/30/16 09: 16; Admin Dose 5 MG; Start 09/07/16 at 09:00 Megestrol Acetate (Megace Susp) 400 mg BID PO Last administered on 09/30/16 09 :16; Admin Dose 400 MG; Start 09/07/16 at 09:00 Methylnaltrexone [place] (Relistor) 12 mg Q48H SC Last administered on 00:41; Admin Dose 12 MG; Start 09/07/16 at 00:00 Ondansetron HCl (Zofran Tab) 4 mg Q6H PRN PO NAUSEA AND/OR VOMITING Last administered on 09/19/16 05:30; Admin Dose 4 MG; Start 09/07/16 at 00:00 Acetaminophen (Tylenol Tab) 500 mg Q4H PRN PO PAIN AND OR ELEVATED TEMP Last administered on 09/29/16 00:08; Admin Dose 500 MG; Start 09/07/16 at 21:30 Enoxaparin Sodium (Lovenox) 55 mg Q12H SC Last administered on 09/30/16 12:32 ; Admin Dose 55 MG; Start 09/09/16 at 12:00 IV Flush (NS 10 ml) 10 ml PRN PRN IV IV PROTOCOL; Start 09/11/16 at 10:00 Calcium/Vitamin D ([place]yster [place]/ Vit-D (500/200)) 1 tab BID PO Last administered on 09/30/16 09:16; Admin Dose 1 TAB; Start 09/12/16 at 14:00 IV Flush (NS 10 ml) 10 ml PRN PRN IV IV PROTOCOL; Start 09/21/16 at 12:00 Metronidazole (Flagyl) 500 mg QID PO Last administered on 09/30/16 17:23; Admin Dose 500 MG; Start 09/22/16 at 13:00 Methadone HCl (Methadone Liq (Ped)) 2 mg Q6 PO Last administered on 09/30/16 17:23; Admin Dose 2 MG; Start 09/23/16 at 18:00 Hydromorphone HCl 1 mg 1 mg Q3H PRN IV PAIN Last administered on 09/30/16 16: 01; Admin Dose 1 MG; Start 09/24/16 at 10:00 Potassium Chloride/Sodium Chloride 1,000 ml @ 70 mls/hr [id number] IV Last administered on 09/30/16 15:55; Admin Dose 70 MLS/HR; Start 09/28/16 at 16:30 Ondansetron HCl/ Sodium Chloride (Zofran Inj/NS) 54 ml @ 216 mls/hr Q12H PRN IV NAUSEA AND/OR VOMITING; Start 09/29/16 at 22:00 Prednisone 5 mg 5 mg BID PO Last administered on 09/30/16 09:16; Admin Dose 5 MG; Start 09/29/16 at 21:00 Docetaxel 45 mg/ Sodium Chloride 100 ml @ 100 mls/hr Th@22 IV ; Start 10/06/16 at 22:00; Stop 10/27/16 at 22:59 Ondansetron HCl/ Dexamethasone/ Dextrose (Zofran Inj/ Decadron/D5W) 60 ml @ 252 mls/hr Th@2130 IV ; Start 10/06/16 at 21:30; Stop 10/27/16 at 21:45 SREE GRIFFITH Sep 30, 2016 18:12
[2016-10-01] MEDS: METHADONE (1 MG/1 ML PO SYG) PO SCH ×5 (00:36→23:17)
[2016-10-01] MEDS: METHYLNALTREXONE 12 MG/0.6 ML VIAL SC SCH (00:36)
[2016-10-01] MEDS: ENOXAPARIN 60 MG/0.6 ML SYG SC SCH (00:38)
[2016-10-01] MEDS: NS + KCL 20 MEQ 1,000 ML IV SCH ×3 (00:41→18:22)
[2016-10-01] MEDS: HYDROmorphONE 1 MG/ML SYG IV PRN ×2 (04:23→16:55)
[2016-10-01 05:30] LABS: ALBUMIN/GLOBULIN RATIO 0.75
[2016-10-01 05:46] LABS: ALBUMIN 2.1 g/dl (3.3-4.9); BILIRUBIN,INDIRECT 0.1 mg/dl (0-1.1); BILIRUBIN,TOTAL 0.1 mg/dl (0.2-1.3); CALCIUM 6.6 mg/dl (8.4-10.2); CREATININE 0.3 mg/dl (0.61-1.24); POTASSIUM 4.1 mmol/L (3.5-5.1); TOTAL PROTEIN 4.9 g/dl (6.1-8.1)
[2016-10-01] MEDS: PANTOPRAZOLE (EC) 40 MG TAB PO SCH (06:04)
[2016-10-01 07:45] LABS: HEMATOCRIT 23.9 % (42.0-52.0); HEMOGLOBIN 8.3 g/dl (14.0-18.0); MEAN CORPUSCULAR HEMOGLOBIN 28.9 pg (29.0-33.0); MEAN CORPUSCULAR HGB CONC 34.5 g/dl (32.0-37.0); MEAN CORPUSCULAR VOLUME 83.7 fl (82.0-101.0); MEAN PLATELET VOLUME 7.5 fl (7.4-10.4); PLATELET COUNT 63 10^3/UL (140-440); RED BLOOD COUNT 2.86 10^6/ul (4.70-6.10); RED CELL DISTRIBUTION WIDTH 17.1 % (11.5-14.5); UNCORRECTED WBC 3.7 10^3/ul (4.8-10.8); WHITE BLOOD COUNT 3.7 10^3/ul (4.8-10.8)
[2016-10-01 07:51] LABS: CONDITION 1; LH ANALYZER COMMENTS 1; SUSPECT 1
[2016-10-01 08:00] VITALS: BP 101/70; RESP 18
[2016-10-01] MEDS: metroNIDAZOLE 500 MG TAB PO SCH ×4 (09:01→21:46)
[2016-10-01] MEDS: CALCIUM/VITAMIN D (500/200) TAB PO SCH ×2 (09:01→21:46)
[2016-10-01] MEDS: MEGESTROL (40 MG/ML) 10ML CUP PO SCH ×2 (09:01→21:46)
[2016-10-01] MEDS: ESCITALOPRAM 10 MG TAB PO SCH (09:01)
[2016-10-01] MEDS: predniSONE 5 MG TAB PO SCH ×2 (09:01→21:46)
[2016-10-01] MEDS: BICALUTAMIDE 50 MG TAB PO SCH (09:09)
[2016-10-01 09:53] LABS: LYMPHOCYTES # 0.5 10^3/ul (0.8-2.9); MYELOCYTES # 0.2; NEUTROPHIL # 2.8 10^3/ul (1.6-7.5)
[2016-10-01 09:54] LABS: ANISOCYTOSIS 1+; PLATELET ESTIMATE PLT APPEAR DECREASED
--- NOTE | 2016-10-01 16:41 | PN ---
Date/Time of Note Date/Time of Note DATE: 10/01/16 TIME: 16:37 Assessment/Plan VTE Prophylaxis VTE Prophylaxis Intervention: SCD's VTE Contraindication Reason: thrombocytopenia Lines/Catheters IV Catheter Type (from Nrsg): PICC Line Central line still needed: Yes (Chemo Rx) Urinary Cath still in place: Yes Reason Cath still needed: urinary retention Assessment/Plan Assessment/Plan 60 yo Male 1. Clostridium difficile colitis. Continue Flagyl and contact isolation. 2. Metastatic prostate cancer. Dr. Hernandez is following patient in oncology consultation. Continue chemotherapy and steroids. 3. Thrombocytopenia. Continue to monitor platelets. Hold Lovenox until clarified with Hem/Onc. 4. Acute on chronic back pain. Dr. Ferguson is following the patient in pain management. Continue methadone and Dilaudid p.r.n. for breakthrough pain. Continue Protonix for peptic ulcer disease prophylaxis. SCDs for deep venous thrombosis prophylaxis. Defer AC to Hem/Onc, appreciate recommendations Subjective 24 Hr Interval Summary Free Text/Dictation No new complaints, Lovenox held due to low plts. Constitutional: No requiring O2 Exam/Review of Systems Vital Signs Vitals Vital Signs Date Time Temp Pulse Resp B/P Pulse Ox O2 Delivery O2 Flow Rate FiO2 10/01/16 08:00 98.0 91 18 101/70 95 09/30/16 05:55 Room Air Intake and Output 09/30/16 09/30/16 10/01/16 15:00 23:00 07:00 Intake Total 1430 ml 1110 ml Output Total 800 ml 1800 ml Balance 630 ml -690 ml Exam Constitutional: alert, frail, oriented, No distress Head: atraumatic, normocephalic Eyes: EOMI ENMT: mucosa pink and moist Neck: No jvd Respiratory: clear to auscultation Cardiovascular: regular rate and rhythm, No edema Gastrointestinal: soft, tender, No rebound or guarding 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: lethargic, No confused Skin: No diaphoresis Results Result Diagram: 10/01/1642910/01/16 043 Results 24 hrs Laboratory Tests Test 10/01/16 04:30 Alanine Aminotransferase (ALT/SGPT) 27 Albumin 2.1 L Albumin/Globulin Ratio 0.75 Alkaline Phosphatase 1585 H Anion Gap 9 Anisocytosis 1+ Aspartate Amino Transf (AST/SGOT) 75 H Band Neutrophils % 3.0 Basophils # Basophils % Blood Morphology Comment Blood Urea Nitrogen 7 Calcium Level 6.6 L Carbon Dioxide Level 25 Chloride Level 105 Creatinine 0.30 L Direct Bilirubin 0.00 Eosinophils # Eosinophils % Globulin 2.80 Glucose Level 130 Hematocrit 23.9 L Hemoglobin 8.3 L Indirect Bilirubin 0.1 Lymphocytes # 0.5 L Lymphocytes % 13.0 L Mean Corpuscular Hemoglobin 28.9 L Mean Corpuscular Hemoglobin Concent 34.5 Mean Corpuscular Volume 83.7 Mean Platelet Volume 7.5 Metamyelocytes # 0.1 Metamyelocytes % 3.0 H Monocytes # Monocytes % Myelocytes # 0.2 Myelocytes % 5.0 H Neutrophils # 2.8 Neutrophils % 76.0 Nucleated Red Blood Cells # Nucleated Red Blood Cells % Platelet Count 63 #L Platelet Estimate PLT APPEAR DECREASED Potassium Level 4.1 Red Blood Count 2.86 L Red Cell Distribution Width 17.1 H Sodium Level 135 Total Bilirubin 0.1 L Total Protein 4.9 L White Blood Count 3.7 #L Medications Medications Current Medications Bicalutamide (Casodex) 50 mg QAM PO Last administered on 10/01/16 09:09; Admin Dose 50 MG; Start 09/07/16 at 09:00 Docusate Sodium (Colace) 100 mg BID PRN PO CONSTIPATION Last administered on 07:52; Admin Dose 100 MG; Start 09/07/16 at 00:00 Escitalopram Oxalate (Lexapro) 5 mg DAILY PO Last administered on 10/01/16 09: 01; Admin Dose 5 MG; Start 09/07/16 at 09:00 Megestrol Acetate (Megace Susp) 400 mg BID PO Last administered on 10/01/16 09 :01; Admin Dose 400 MG; Start 09/07/16 at 09:00 Methylnaltrexone [place] (Relistor) 12 mg Q48H SC Last administered on 00:36; Admin Dose 12 MG; Start 09/07/16 at 00:00 Ondansetron HCl (Zofran Tab) 4 mg Q6H PRN PO NAUSEA AND/OR VOMITING Last administered on 09/19/16 05:30; Admin Dose 4 MG; Start 09/07/16 at 00:00 Acetaminophen (Tylenol Tab) 500 mg Q4H PRN PO PAIN AND OR ELEVATED TEMP Last administered on 09/29/16 00:08; Admin Dose 500 MG; Start 09/07/16 at 21:30 IV Flush (NS 10 ml) 10 ml PRN PRN IV IV PROTOCOL; Start 09/11/16 at 10:00 Calcium/Vitamin D ([place]/ Vit-D (500/200)) 1 tab BID PO Last administered on 10/01/16 09:01; Admin Dose 1 TAB; Start 09/12/16 at 14:00 IV Flush (NS 10 ml) 10 ml PRN PRN IV IV PROTOCOL; Start 09/21/16 at 12:00 Metronidazole (Flagyl) 500 mg QID PO Last administered on 10/01/16 12:32; Admin Dose 500 MG; Start 09/22/16 at 13:00 Methadone HCl (Methadone Liq (Ped)) 2 mg Q6 PO Last administered on 10/01/16 12:32; Admin Dose 2 MG; Start 09/23/16 at 18:00 Hydromorphone HCl 1 mg 1 mg Q3H PRN IV PAIN Last administered on 10/01/16 04: 23; Admin Dose 1 MG; Start 09/24/16 at 10:00 Potassium Chloride/Sodium Chloride 1,000 ml @ 70 mls/hr [id number] IV Last administered on 10/01/16 00:41; Admin Dose 70 MLS/HR; Start 09/28/16 at 16:30 Ondansetron HCl/ Sodium Chloride (Zofran Inj/NS) 54 ml @ 216 mls/hr Q12H PRN IV NAUSEA AND/OR VOMITING; Start 09/29/16 at 22:00 Prednisone 5 mg 5 mg BID PO Last administered on 10/01/16 09:01; Admin Dose 5 MG; Start 09/29/16 at 21:00 Docetaxel 45 mg/ Sodium Chloride 100 ml @ 100 mls/hr Th@22 IV ; Start 10/06/16 at 22:00; Stop 10/27/16 at 22:59 Ondansetron HCl/ Dexamethasone/ Dextrose (Zofran Inj/ Decadron/D5W) 60 ml @ 252 mls/hr Th@2130 IV ; Start 10/06/16 at 21:30; Stop 10/27/16 at 21:45 ALEXANDRO EL MD Oct 01, 2016 16:40
--- NOTE | 2016-10-01 18:14 | CONS ---
Date/Time of Note Date/Time of Note DATE: 10/01/16 TIME: 18:10 Assessment/Plan Assessment/Plan Chief Complaint/Hosp Course Metastatic prostate cancer. Continue chemotherapy and steroids - PER PROTOCOL Chemotherapy Docetaxel (Taxotere) 30 mg/m2 IV over 30 minutes once per day on days 1, 8, 15, 22, 29 Prednisone (Sterapred) 5 mg PO BID on days 1 to 42 Supportive medications Dexamethasone (Decadron) 8 mg (route not specified) once 1 hour before Docetaxel (Taxotere) Antiemetics "according to local practice" 42-day cycle for up to 5 cycles Thrombocytopenia. Continue to monitor platelets. PANCYTOPENIA MONITOR DECONDITIONING PT Acute on chronic back pain. Dr. Ferguson is following the patient in pain management. Continue methadone and Dilaudid p.r.n. for breakthrough pain. Clostridium difficile colitis. Continue Flagyl and contact isolation. Problems: Consultation Date/Type/Reason Admit Date/Time Sep 06, 2016 at 22:01 Initial Consult Date 09/08/16 Type of Consultation: Hematology/Oncology Reason for Consultation PROSTATE CANCER Referring Provider: TIMOTHY MARAVILLA MD 24 HR Interval Summary Free Text/Dictation ALL NOTED POST CHEMO MORE ALERT Exam/Review of Systems Vital Signs Vitals Vital Signs Date Time Temp Pulse Resp B/P Pulse Ox O2 Delivery O2 Flow Rate FiO2 10/01/16 08:00 98.0 91 18 101/70 95 09/30/16 05:55 Room Air Intake and Output 09/30/16 09/30/16 10/01/16 15:00 23:00 07:00 Intake Total 1430 ml 1110 ml Output Total 800 ml 1800 ml Balance 630 ml -690 ml Exam GENERAL: Well-developed, cachectic male, currently is awake, alert. HEENT: Head is atraumatic, normocephalic. PERRLA. NECK: Supple. No mass, no thyromegaly. LUNGS: Clear bilaterally. No rhonchi, wheezes, rales noted. HEART: Normal S1, S2. No murmurs, gallops, clicks, rubs noted. ABDOMEN: Flat, soft, nondistended, nontender. Bowel sounds present. EXTREMITIES: No edema. SKIN: There is no rash, petechiae noted. NEUROLOGIC: The patient is awake, alert, and oriented x3. Results Result Diagram: 10/01/1642910/01/16 043 Results 24 hrs Laboratory Tests Test 10/01/16 04:30 Alanine Aminotransferase (ALT/SGPT) 27 Albumin 2.1 L Albumin/Globulin Ratio 0.75 Alkaline Phosphatase 1585 H Anion Gap 9 Anisocytosis 1+ Aspartate Amino Transf (AST/SGOT) 75 H Band Neutrophils % 3.0 Basophils # Basophils % Blood Morphology Comment Blood Urea Nitrogen 7 Calcium Level 6.6 L Carbon Dioxide Level 25 Chloride Level 105 Creatinine 0.30 L Direct Bilirubin 0.00 Eosinophils # Eosinophils % Globulin 2.80 Glucose Level 130 Hematocrit 23.9 L Hemoglobin 8.3 L Indirect Bilirubin 0.1 Lymphocytes # 0.5 L Lymphocytes % 13.0 L Mean Corpuscular Hemoglobin 28.9 L Mean Corpuscular Hemoglobin Concent 34.5 Mean Corpuscular Volume 83.7 Mean Platelet Volume 7.5 Metamyelocytes # 0.1 Metamyelocytes % 3.0 H Monocytes # Monocytes % Myelocytes # 0.2 Myelocytes % 5.0 H Neutrophils # 2.8 Neutrophils % 76.0 Nucleated Red Blood Cells # Nucleated Red Blood Cells % Platelet Count 63 #L Platelet Estimate PLT APPEAR DECREASED Potassium Level 4.1 Red Blood Count 2.86 L Red Cell Distribution Width 17.1 H Sodium Level 135 Total Bilirubin 0.1 L Total Protein 4.9 L White Blood Count 3.7 #L Medications Medications Current Medications Bicalutamide (Casodex) 50 mg QAM PO Last administered on 10/01/16 09:09; Admin Dose 50 MG; Start 09/07/16 at 09:00 Docusate Sodium (Colace) 100 mg BID PRN PO CONSTIPATION Last administered on 07:52; Admin Dose 100 MG; Start 09/07/16 at 00:00 Escitalopram Oxalate (Lexapro) 5 mg DAILY PO Last administered on 10/01/16 09: 01; Admin Dose 5 MG; Start 09/07/16 at 09:00 Megestrol Acetate (Megace Susp) 400 mg BID PO Last administered on 10/01/16 09 :01; Admin Dose 400 MG; Start 09/07/16 at 09:00 Methylnaltrexone [place] (Relistor) 12 mg Q48H SC Last administered on 00:36; Admin Dose 12 MG; Start 09/07/16 at 00:00 Ondansetron HCl (Zofran Tab) 4 mg Q6H PRN PO NAUSEA AND/OR VOMITING Last administered on 09/19/16 05:30; Admin Dose 4 MG; Start 09/07/16 at 00:00 Acetaminophen (Tylenol Tab) 500 mg Q4H PRN PO PAIN AND OR ELEVATED TEMP Last administered on 09/29/16 00:08; Admin Dose 500 MG; Start 09/07/16 at 21:30 IV Flush (NS 10 ml) 10 ml PRN PRN IV IV PROTOCOL; Start 09/11/16 at 10:00 Calcium/Vitamin D (Oyster Shell/ Vit-D (500/200)) 1 tab BID PO Last administered on 10/01/16 09:01; Admin Dose 1 TAB; Start 09/12/16 at 14:00 IV Flush (NS 10 ml) 10 ml PRN PRN IV IV PROTOCOL; Start 09/21/16 at 12:00 Metronidazole (Flagyl) 500 mg QID PO Last administered on 10/01/16 17:24; Admin Dose 500 MG; Start 09/22/16 at 13:00 Methadone HCl (Methadone Liq (Ped)) 2 mg Q6 PO Last administered on 10/01/16 17:25; Admin Dose 2 MG; Start 09/23/16 at 18:00 Hydromorphone HCl 1 mg 1 mg Q3H PRN IV PAIN Last administered on 10/01/16 16: 55; Admin Dose 1 MG; Start 09/24/16 at 10:00 Potassium Chloride/Sodium Chloride 1,000 ml @ 70 mls/hr [id number] IV Last administered on 10/01/16 00:41; Admin Dose 70 MLS/HR; Start 09/28/16 at 16:30 Ondansetron HCl/ Sodium Chloride (Zofran Inj/NS) 54 ml @ 216 mls/hr Q12H PRN IV NAUSEA AND/OR VOMITING; Start 09/29/16 at 22:00 Prednisone 5 mg 5 mg BID PO Last administered on 10/01/16 09:01; Admin Dose 5 MG; Start 09/29/16 at 21:00 Docetaxel 45 mg/ Sodium Chloride 100 ml @ 100 mls/hr Th@22 IV ; Start 10/06/16 at 22:00; Stop 10/27/16 at 22:59 Ondansetron HCl/ Dexamethasone/ Dextrose (Zofran Inj/ Decadron/D5W) 60 ml @ 252 mls/hr Th@2130 IV ; Start 10/06/16 at 21:30; Stop 10/27/16 at 21:45 JARAD CHOI MD Oct 01, 2016 18:14
[2016-10-01 20:30] VITALS: BP 102/62; RESP 20
[2016-10-02] MEDS: HYDROmorphONE 1 MG/ML SYG IV PRN ×3 (01:49→18:54)
[2016-10-02 05:06] LABS: HEMATOCRIT 22.2 % (42.0-52.0); HEMOGLOBIN 7.6 g/dl (14.0-18.0); MEAN CORPUSCULAR HEMOGLOBIN 28.7 pg (29.0-33.0); MEAN CORPUSCULAR VOLUME 84.4 fl (82.0-101.0); MEAN PLATELET VOLUME 8.2 fl (7.4-10.4); PLATELET COUNT 63 10^3/UL (140-440); RED BLOOD COUNT 2.63 10^6/ul (4.70-6.10); RED CELL DISTRIBUTION WIDTH 17.2 % (11.5-14.5); UNCORRECTED WBC 3.1 10^3/ul (4.8-10.8); WHITE BLOOD COUNT 3.1 10^3/ul (4.8-10.8)
[2016-10-02 05:17] LABS: CONDITION 1; LH ANALYZER COMMENTS 1; SUSPECT 1
[2016-10-02 05:37] LABS: ALBUMIN 2.2 g/dl (3.3-4.9)
[2016-10-02 05:38] LABS: POTASSIUM 4.4 mmol/L (3.5-5.1)
[2016-10-02 05:40] LABS: ALBUMIN/GLOBULIN RATIO 0.75; BILIRUBIN,INDIRECT 0.1 mg/dl (0-1.1); BILIRUBIN,TOTAL 0.1 mg/dl (0.2-1.3); CREATININE 0.32 mg/dl (0.61-1.24); TOTAL PROTEIN 5.1 g/dl (6.1-8.1)
[2016-10-02 05:41] LABS: CALCIUM 6.9 mg/dl (8.4-10.2)
[2016-10-02] MEDS: METHADONE (1 MG/1 ML PO SYG) PO SCH ×4 (05:44→23:47)
[2016-10-02] MEDS: NS + KCL 20 MEQ 1,000 ML IV SCH ×3 (05:44→20:36)
[2016-10-02 08:02] VITALS: BP 109/73; RESP 20
[2016-10-02] MEDS: PANTOPRAZOLE (EC) 40 MG TAB PO SCH (09:29)
[2016-10-02] MEDS: BICALUTAMIDE 50 MG TAB PO SCH (09:31)
[2016-10-02] MEDS: ESCITALOPRAM 10 MG TAB PO SCH (09:32)
[2016-10-02] MEDS: CALCIUM/VITAMIN D (500/200) TAB PO SCH ×2 (09:32→20:39)
[2016-10-02] MEDS: predniSONE 5 MG TAB PO SCH ×2 (09:32→20:39)
[2016-10-02] MEDS: metroNIDAZOLE 500 MG TAB PO SCH ×4 (09:32→20:38)
[2016-10-02] MEDS: MEGESTROL (40 MG/ML) 10ML CUP PO SCH ×2 (09:32→20:38)
[2016-10-02 09:52] LABS: ANISOCYTOSIS 1+; HYPOCHROMASIA 1+; LYMPHOCYTES # 0.3 10^3/ul (0.8-2.9); NEUTROPHIL # 2.5 10^3/ul (1.6-7.5)
[2016-10-02 09:53] LABS: PLATELET ESTIMATE PLT APPEAR DECREASED
--- NOTE | 2016-10-02 13:17 | PN ---
Date/Time of Note Date/Time of Note DATE: 10/02/16 TIME: 13:16 Assessment/Plan VTE Prophylaxis VTE Prophylaxis Intervention: other Lines/Catheters IV Catheter Type (from Nrsg): PICC Line Central line still needed: Yes Urinary Cath still in place: Yes Reason Cath still needed: urinary retention Assessment/Plan Assessment/Plan 1. Clostridium difficile colitis. Continue Flagyl and contact isolation. 2. Metastatic prostate cancer. - per Dr. Hernandez in oncology consultation. Continue chemotherapy and steroids. 3. Thrombocytopenia. Continue to monitor platelets.Hold Lovenox until clarified with Hem/Onc. 4. Acute on chronic back pain. - per Dr. Ferguson in pain management. Continue methadone and Dilaudid p.r.n. for breakthrough pain.. 5. Anemia- 2 units PRBC Continue Protonix for peptic ulcer disease prophylaxis. SCDs for deep venous thrombosis prophylaxis. Continue Protonix for peptic ulcer disease prophylaxis. SCDs for deep venous thrombosis prophylaxis. TATIANA Nichols Subjective 24 Hr Interval Summary Eyes: no complaints ENT: no complaints Respiratory: no complaints Cardiovascular: no complaints Gastrointestinal: no complaints Genitourinary: no complaints Musculoskeletal: back pain Skin: no complaints Neurologic: no complaints Lymphatic: no complaints Psychological: nl mood/affect Exam/Review of Systems Vital Signs Vitals Vital Signs Date Time Temp Pulse Resp B/P Pulse Ox O2 Delivery O2 Flow Rate FiO2 10/02/16 08:02 20 109/73 93 10/02/16 08:01 98.1 94 09/30/16 05:55 Room Air Intake and Output 10/01/16 10/01/16 10/02/16 15:00 23:00 07:00 Intake Total 1140 ml 920 ml Output Total 1300 ml 2500 ml Balance -160 ml -1580 ml Exam Constitutional: alert, frail, well developed Psych: nl mood/affect Head: atraumatic Eyes: EOMI, nl sclera ENMT: nl external ears & nose Neck: supple Respiratory: clear to auscultation Cardiovascular: nl pulses Gastrointestinal: non-tender, soft Musculoskeletal: nl extremities to inspection Extremities: normal pulses 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: nl speech Skin: nl turgor Lymph: nontender Results Result Diagram: 10/02/16 0416 10/02/16 0416 Results 24 hrs Laboratory Tests Test 10/02/16 04:16 Alanine Aminotransferase (ALT/SGPT) 29 Albumin 2.2 L Albumin/Globulin Ratio 0.75 Alkaline Phosphatase 1388 H Anion Gap 8 Anisocytosis 1+ Aspartate Amino Transf (AST/SGOT) 56 H Band Neutrophils % 6.0 H Basophils # Basophils % Blood Morphology Comment Blood Urea Nitrogen 5 L Calcium Level 6.9 L Carbon Dioxide Level 24 Chloride Level 107 Creatinine 0.32 L Differential Comment MANUAL DIFF Direct Bilirubin 0.00 Eosinophils # Eosinophils % Giant Platelets OCCASIONAL Globulin 2.90 Glucose Level 100 Hematocrit 22.2 L Hemoglobin 7.6 L Hypochromasia 1+ Indirect Bilirubin 0.1 Large Platelets FEW Lymphocytes # 0.3 L Lymphocytes % 11.0 L Mean Corpuscular Hemoglobin 28.7 L Mean Corpuscular Hemoglobin Concent 34.0 Mean Corpuscular Volume 84.4 Mean Platelet Volume 8.2 Metamyelocytes # 0.0 Metamyelocytes % 1.0 H Monocytes # 0.0 L Monocytes % 1.0 Myelocytes # 0.0 Myelocytes % 1.0 H Neutrophils # 2.5 Neutrophils % 80.0 H Nucleated Red Blood Cells # Nucleated Red Blood Cells % Platelet Count 63 L Platelet Estimate PLT APPEAR DECREASED Potassium Level 4.4 Red Blood Count 2.63 L Red Cell Distribution Width 17.2 H Sodium Level 135 Total Bilirubin 0.1 L Total Protein 5.1 L White Blood Count 3.1 L Medications Medications Current Medications Bicalutamide (Casodex) 50 mg QAM PO Last administered on 10/02/16 09:31; Admin Dose 50 MG; Start 09/07/16 at 09:00 Docusate Sodium (Colace) 100 mg BID PRN PO CONSTIPATION Last administered on 07:52; Admin Dose 100 MG; Start 09/07/16 at 00:00 Escitalopram Oxalate (Lexapro) 5 mg DAILY PO Last administered on 10/02/16 09: 32; Admin Dose 5 MG; Start 09/07/16 at 09:00 Megestrol Acetate (Megace Susp) 400 mg BID PO Last administered on 10/02/16 09 :32; Admin Dose 400 MG; Start 09/07/16 at 09:00 Methylnaltrexone [place] (Relistor) 12 mg Q48H SC Last administered on 00:36; Admin Dose 12 MG; Start 09/07/16 at 00:00 Ondansetron HCl (Zofran Tab) 4 mg Q6H PRN PO NAUSEA AND/OR VOMITING Last administered on 09/19/16 05:30; Admin Dose 4 MG; Start 09/07/16 at 00:00 Acetaminophen (Tylenol Tab) 500 mg Q4H PRN PO PAIN AND OR ELEVATED TEMP Last administered on 09/29/16 00:08; Admin Dose 500 MG; Start 09/07/16 at 21:30 IV Flush (NS 10 ml) 10 ml PRN PRN IV IV PROTOCOL; Start 09/11/16 at 10:00 Calcium/Vitamin D (Oyster Shell/ Vit-D (500/200)) 1 tab BID PO Last administered on 10/02/16 09:32; Admin Dose 1 TAB; Start 09/12/16 at 14:00 IV Flush (NS 10 ml) 10 ml PRN PRN IV IV PROTOCOL; Start 09/21/16 at 12:00 Metronidazole (Flagyl) 500 mg QID PO Last administered on 10/02/16 09:32; Admin Dose 500 MG; Start 09/22/16 at 13:00 Methadone HCl (Methadone Liq (Ped)) 2 mg Q6 PO Last administered on 10/02/16 12:00; Admin Dose 2 MG; Start 09/23/16 at 18:00 Hydromorphone HCl 1 mg 1 mg Q3H PRN IV PAIN Last administered on 10/02/16 01: 49; Admin Dose 1 MG; Start 09/24/16 at 10:00 Potassium Chloride/Sodium Chloride 1,000 ml @ 70 mls/hr [id number] IV Last administered on 10/02/16 07:05; Admin Dose 70 MLS/HR; Start 09/28/16 at 16:30 Ondansetron HCl/ Sodium Chloride (Zofran Inj/NS) 54 ml @ 216 mls/hr Q12H PRN IV NAUSEA AND/OR VOMITING; Start 09/29/16 at 22:00 Prednisone 5 mg 5 mg BID PO Last administered on 10/02/16 09:32; Admin Dose 5 MG; Start 09/29/16 at 21:00 Docetaxel 45 mg/ Sodium Chloride 100 ml @ 100 mls/hr Th@22 IV ; Start 10/06/16 at 22:00; Stop 10/27/16 at 22:59 Ondansetron HCl/ Dexamethasone/ Dextrose (Zofran Inj/ Decadron/D5W) 60 ml @ 252 mls/hr Th@2130 IV ; Start 10/06/16 at 21:30; Stop 10/27/16 at 21:45 KENDAL BELLO Oct 02, 2016 13:17
--- NOTE | 2016-10-02 13:35 | CONS ---
Date/Time of Note Date/Time of Note DATE: 10/02/16 TIME: 13:33 Assessment/Plan Assessment/Plan Chief Complaint/Hosp Course Metastatic prostate cancer. POS CHEMO THIS WE chemotherapy and steroids - PER PROTOCOL Chemotherapy Docetaxel (Taxotere) 30 mg/m2 IV over 30 minutes once per day on days 1, 8, 15, 22, 29 Prednisone (Sterapred) 5 mg PO BID on days 1 to 42 Supportive medications Dexamethasone (Decadron) 8 mg (route not specified) once 1 hour before Docetaxel (Taxotere) Antiemetics "according to local practice" 42-day cycle for up to 5 cycles ANEMIA WORSE TRANSFUSE PRBC MONITOR CLOSELY OBSERVE FOR BLEEDING AND HEMOLYSIS Thrombocytopenia. Continue to monitor platelets. PANCYTOPENIA MONITOR DECONDITIONING PT Acute on chronic back pain. Dr. Ferguson is following the patient in pain management. Continue methadone and Dilaudid p.r.n. for breakthrough pain. Clostridium difficile colitis. Continue Flagyl and contact isolation. Problems: Consultation Date/Type/Reason Admit Date/Time Sep 06, 2016 at 22:01 Initial Consult Date 09/08/16 Type of Consultation: Hematology/Oncology Referring Provider: TIMOTHY MARAVILLA MD 24 HR Interval Summary Free Text/Dictation H/H- DOWN NO BLEEDING PRBC ORDERED Exam/Review of Systems Vital Signs Vitals Vital Signs Date Time Temp Pulse Resp B/P Pulse Ox O2 Delivery O2 Flow Rate FiO2 10/02/16 08:02 20 109/73 93 10/02/16 08:01 98.1 94 09/30/16 05:55 Room Air Intake and Output 10/01/16 10/01/16 10/02/16 15:00 23:00 07:00 Intake Total 1140 ml 920 ml Output Total 1300 ml 2500 ml Balance -160 ml -1580 ml Exam Constitutional: alert Eyes: EOMI, nl sclera ENMT: nl external ears & nose Neck: supple Respiratory: clear to auscultation Cardiovascular: nl pulses Gastrointestinal: non-tender, soft Musculoskeletal: nl extremities to inspection Extremities: normal pulses 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: nl speech Skin: nl turgor Lymph: nontender Results Result Diagram: 10/02/16 0416 10/02/16 0416 Results 24 hrs Laboratory Tests Test 10/02/16 04:16 Alanine Aminotransferase (ALT/SGPT) 29 Albumin 2.2 L Albumin/Globulin Ratio 0.75 Alkaline Phosphatase 1388 H Anion Gap 8 Anisocytosis 1+ Aspartate Amino Transf (AST/SGOT) 56 H Band Neutrophils % 6.0 H Basophils # Basophils % Blood Morphology Comment Blood Urea Nitrogen 5 L Calcium Level 6.9 L Carbon Dioxide Level 24 Chloride Level 107 Creatinine 0.32 L Differential Comment MANUAL DIFF Direct Bilirubin 0.00 Eosinophils # Eosinophils % Giant Platelets OCCASIONAL Globulin 2.90 Glucose Level 100 Hematocrit 22.2 L Hemoglobin 7.6 L Hypochromasia 1+ Indirect Bilirubin 0.1 Large Platelets FEW Lymphocytes # 0.3 L Lymphocytes % 11.0 L Mean Corpuscular Hemoglobin 28.7 L Mean Corpuscular Hemoglobin Concent 34.0 Mean Corpuscular Volume 84.4 Mean Platelet Volume 8.2 Metamyelocytes # 0.0 Metamyelocytes % 1.0 H Monocytes # 0.0 L Monocytes % 1.0 Myelocytes # 0.0 Myelocytes % 1.0 H Neutrophils # 2.5 Neutrophils % 80.0 H Nucleated Red Blood Cells # Nucleated Red Blood Cells % Platelet Count 63 L Platelet Estimate PLT APPEAR DECREASED Potassium Level 4.4 Red Blood Count 2.63 L Red Cell Distribution Width 17.2 H Sodium Level 135 Total Bilirubin 0.1 L Total Protein 5.1 L White Blood Count 3.1 L Medications Medications Current Medications Bicalutamide (Casodex) 50 mg QAM PO Last administered on 10/02/16 09:31; Admin Dose 50 MG; Start 09/07/16 at 09:00 Docusate Sodium (Colace) 100 mg BID PRN PO CONSTIPATION Last administered on 07:52; Admin Dose 100 MG; Start 09/07/16 at 00:00 Escitalopram Oxalate (Lexapro) 5 mg DAILY PO Last administered on 10/02/16 09: 32; Admin Dose 5 MG; Start 09/07/16 at 09:00 Megestrol Acetate (Megace Susp) 400 mg BID PO Last administered on 10/02/16 09 :32; Admin Dose 400 MG; Start 09/07/16 at 09:00 Methylnaltrexone [place] (Relistor) 12 mg Q48H SC Last administered on 00:36; Admin Dose 12 MG; Start 09/07/16 at 00:00 Ondansetron HCl (Zofran Tab) 4 mg Q6H PRN PO NAUSEA AND/OR VOMITING Last administered on 09/19/16 05:30; Admin Dose 4 MG; Start 09/07/16 at 00:00 Acetaminophen (Tylenol Tab) 500 mg Q4H PRN PO PAIN AND OR ELEVATED TEMP Last administered on 09/29/16 00:08; Admin Dose 500 MG; Start 09/07/16 at 21:30 IV Flush (NS 10 ml) 10 ml PRN PRN IV IV PROTOCOL; Start 09/11/16 at 10:00 Calcium/Vitamin D (Oyster Shell/ Vit-D (500/200)) 1 tab BID PO Last administered on 10/02/16 09:32; Admin Dose 1 TAB; Start 09/12/16 at 14:00 IV Flush (NS 10 ml) 10 ml PRN PRN IV IV PROTOCOL; Start 09/21/16 at 12:00 Metronidazole (Flagyl) 500 mg QID PO Last administered on 10/02/16 13:28; Admin Dose 500 MG; Start 09/22/16 at 13:00 Methadone HCl (Methadone Liq (Ped)) 2 mg Q6 PO Last administered on 10/02/16 12:00; Admin Dose 2 MG; Start 09/23/16 at 18:00 Hydromorphone HCl 1 mg 1 mg Q3H PRN IV PAIN Last administered on 10/02/16 01: 49; Admin Dose 1 MG; Start 09/24/16 at 10:00 Potassium Chloride/Sodium Chloride 1,000 ml @ 70 mls/hr [id number] IV Last administered on 10/02/16 07:05; Admin Dose 70 MLS/HR; Start 09/28/16 at 16:30 Ondansetron HCl/ Sodium Chloride (Zofran Inj/NS) 54 ml @ 216 mls/hr Q12H PRN IV NAUSEA AND/OR VOMITING; Start 09/29/16 at 22:00 Prednisone 5 mg 5 mg BID PO Last administered on 10/02/16 09:32; Admin Dose 5 MG; Start 09/29/16 at 21:00 Docetaxel 45 mg/ Sodium Chloride 100 ml @ 100 mls/hr Th@22 IV ; Start 10/06/16 at 22:00; Stop 10/27/16 at 22:59 Ondansetron HCl/ Dexamethasone/ Dextrose (Zofran Inj/ Decadron/D5W) 60 ml @ 252 mls/hr Th@2130 IV ; Start 10/06/16 at 21:30; Stop 10/27/16 at 21:45 JARAD CHOI MD Oct 02, 2016 13:35
[2016-10-02 20:34] VITALS: BP 104/66; RESP 19
[2016-10-02] MEDS: METHYLNALTREXONE 12 MG/0.6 ML VIAL SC SCH (23:47)
[2016-10-03] MEDS: HYDROmorphONE 1 MG/ML SYG IV PRN ×3 (02:01→17:11)
[2016-10-03] MEDS: NS + KCL 20 MEQ 1,000 ML IV SCH ×3 (02:01→21:54)
[2016-10-03 05:56] LABS: BASOPHILS % 0.7 % (0.0-2.0); HEMATOCRIT 29.6 % (42.0-52.0); HEMOGLOBIN 10.4 g/dl (14.0-18.0); LYMPHOCYTES # 0.4 10^3/ul (0.8-2.9); LYMPHOCYTES % 16.2 % (15.0-51.0); MEAN CORPUSCULAR HEMOGLOBIN 29.3 pg (29.0-33.0); MEAN CORPUSCULAR HGB CONC 35.2 g/dl (32.0-37.0); MEAN CORPUSCULAR VOLUME 83.4 fl (82.0-101.0); MEAN PLATELET VOLUME 8.5 fl (7.4-10.4); MONOCYTES % 0.9 % (0.0-11.0); NEUTROPHIL # 2.2 10^3/ul (1.6-7.5); NEUTROPHILS % 82.2 % (39.0-77.0); PLATELET COUNT 49 10^3/UL (140-440); RED BLOOD COUNT 3.55 10^6/ul (4.70-6.10); RED CELL DISTRIBUTION WIDTH 16.7 % (11.5-14.5); UNCORRECTED WBC 2.6 10^3/ul (4.8-10.8); WHITE BLOOD COUNT 2.6 10^3/ul (4.8-10.8)
[2016-10-03 06:00] LABS: CONDITION 1; LH ANALYZER COMMENTS 1
[2016-10-03 06:06] LABS: ALBUMIN 2.3 g/dl (3.3-4.9)
[2016-10-03 06:07] LABS: POTASSIUM 4.5 mmol/L (3.5-5.1)
[2016-10-03] MEDS: METHADONE (1 MG/1 ML PO SYG) PO SCH ×3 (06:08→18:18)
[2016-10-03 06:09] LABS: BILIRUBIN,INDIRECT 0.3 mg/dl (0-1.1); BILIRUBIN,TOTAL 0.3 mg/dl (0.2-1.3); CREATININE 0.31 mg/dl (0.61-1.24)
[2016-10-03 06:10] LABS: ALBUMIN/GLOBULIN RATIO 0.74; TOTAL PROTEIN 5.4 g/dl (6.1-8.1)
[2016-10-03 07:54] VITALS: BP 114/72; RESP 18
[2016-10-03] MEDS: PANTOPRAZOLE (EC) 40 MG TAB PO SCH (08:47)
[2016-10-03] MEDS: predniSONE 5 MG TAB PO SCH ×2 (08:47→21:53)
[2016-10-03] MEDS: ESCITALOPRAM 10 MG TAB PO SCH (08:48)
[2016-10-03] MEDS: CALCIUM/VITAMIN D (500/200) TAB PO SCH ×2 (08:48→21:53)
[2016-10-03] MEDS: metroNIDAZOLE 500 MG TAB PO SCH ×4 (08:48→21:53)
[2016-10-03] MEDS: MEGESTROL (40 MG/ML) 10ML CUP PO SCH ×2 (08:49→21:54)
[2016-10-03] MEDS: BICALUTAMIDE 50 MG TAB PO SCH (08:59)
--- NOTE | 2016-10-03 13:39 | CONS ---
Date/Time of Note Date/Time of Note DATE: 10/03/16 TIME: 13:38 Assessment/Plan Assessment/Plan Chief Complaint/Hosp Course Metastatic prostate cancer. chemotherapy and steroids - PER PROTOCOL Chemotherapy Docetaxel (Taxotere) 30 mg/m2 IV over 30 minutes once per day on days 1, 8, 15, 22, 29 Prednisone (Sterapred) 5 mg PO BID on days 1 to 42 Supportive medications Dexamethasone (Decadron) 8 mg (route not specified) once 1 hour before Docetaxel (Taxotere) Antiemetics "according to local practice" 42-day cycle for up to 5 cycles ANEMIA WORSE TRANSFUSE PRBC MONITOR CLOSELY OBSERVE FOR BLEEDING AND HEMOLYSIS Thrombocytopenia. Continue to monitor platelets. PANCYTOPENIA MONITOR DECONDITIONING PT Acute on chronic back pain. Dr. Ferguson is following the patient in pain management. Continue methadone and Dilaudid p.r.n. for breakthrough pain. Clostridium difficile colitis. Continue Flagyl and contact isolation. Problems: Consultation Date/Type/Reason Admit Date/Time Sep 06, 2016 at 22:01 Initial Consult Date 09/08/16 Type of Consultation: Hematology/Oncology Referring Provider: TIMOTHY MARAVILLA MD 24 HR Interval Summary Free Text/Dictation D/W STAFF NO NEW EVENTS COUNT REVIEWED POST CHEMO Exam/Review of Systems Vital Signs Vitals Vital Signs Date Time Temp Pulse Resp B/P Pulse Ox O2 Delivery O2 Flow Rate FiO2 10/03/16 07:54 98.4 89 18 114/72 96 09/30/16 05:55 Room Air Intake and Output 10/02/16 10/02/16 10/03/16 15:00 23:00 07:00 Intake Total 1491 ml 790 ml Output Total 2000 ml 2200 ml Balance -509 ml -1410 ml Exam Constitutional: alert, oriented Psych: nl mood/affect Head: normocephalic Eyes: EOMI, nl conjunctiva ENMT: nl external ears & nose Neck: non-tender Respiratory: clear to auscultation Cardiovascular: nl pulses Gastrointestinal: soft, tender (diffuse tenderness ) Extremities: normal pulses 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: nl speech Skin: nl turgor Lymph: nontender Results Result Diagram: 10/03/16 0420 10/03/16 0420 Results 24 hrs Laboratory Tests Test 10/03/16 04:20 Alanine Aminotransferase (ALT/SGPT) 23 Albumin 2.3 L Albumin/Globulin Ratio 0.74 Alkaline Phosphatase 1276 H Anion Gap 12 Aspartate Amino Transf (AST/SGOT) 44 Basophils # 0.0 Basophils % 0.7 Blood Morphology Comment Blood Urea Nitrogen 5 L Calcium Level 7.0 L Carbon Dioxide Level 22 Chloride Level 107 Creatinine 0.31 L Direct Bilirubin 0.00 Eosinophils # 0.0 Eosinophils % 0.0 Globulin 3.10 Glucose Level 94 Hematocrit 29.6 #L Hemoglobin 10.4 #L Indirect Bilirubin 0.3 Lymphocytes # 0.4 L Lymphocytes % 16.2 Mean Corpuscular Hemoglobin 29.3 Mean Corpuscular Hemoglobin Concent 35.2 Mean Corpuscular Volume 83.4 Mean Platelet Volume 8.5 Monocytes # 0.0 L Monocytes % 0.9 Neutrophils # 2.2 Neutrophils % 82.2 H Nucleated Red Blood Cells # 0.0 Nucleated Red Blood Cells % 0.0 Platelet Count 49 #L Potassium Level 4.5 Red Blood Count 3.55 #L Red Cell Distribution Width 16.7 H Sodium Level 136 Total Bilirubin 0.3 Total Protein 5.4 L White Blood Count 2.6 L Medications Medications Current Medications Bicalutamide (Casodex) 50 mg QAM PO Last administered on 10/03/16 08:59; Admin Dose 50 MG; Start 09/07/16 at 09:00 Docusate Sodium (Colace) 100 mg BID PRN PO CONSTIPATION Last administered on 07:52; Admin Dose 100 MG; Start 09/07/16 at 00:00 Escitalopram Oxalate (Lexapro) 5 mg DAILY PO Last administered on 10/03/16 08: 48; Admin Dose 5 MG; Start 09/07/16 at 09:00 Megestrol Acetate (Megace Susp) 400 mg BID PO Last administered on 10/03/16 08 :49; Admin Dose 400 MG; Start 09/07/16 at 09:00 Methylnaltrexone [place] (Relistor) 12 mg Q48H SC Last administered on 00:36; Admin Dose 12 MG; Start 09/07/16 at 00:00 Ondansetron HCl (Zofran Tab) 4 mg Q6H PRN PO NAUSEA AND/OR VOMITING Last administered on 09/19/16 05:30; Admin Dose 4 MG; Start 09/07/16 at 00:00 Acetaminophen (Tylenol Tab) 500 mg Q4H PRN PO PAIN AND OR ELEVATED TEMP Last administered on 09/29/16 00:08; Admin Dose 500 MG; Start 09/07/16 at 21:30 IV Flush (NS 10 ml) 10 ml PRN PRN IV IV PROTOCOL; Start 09/11/16 at 10:00 Calcium/Vitamin D (Oyster [place]/ Vit-D (500/200)) 1 tab BID PO Last administered on 10/03/16 08:48; Admin Dose 1 TAB; Start 09/12/16 at 14:00 IV Flush (NS 10 ml) 10 ml PRN PRN IV IV PROTOCOL; Start 09/21/16 at 12:00 Metronidazole (Flagyl) 500 mg QID PO Last administered on 10/03/16 12:06; Admin Dose 500 MG; Start 09/22/16 at 13:00 Methadone HCl (Methadone Liq (Ped)) 2 mg Q6 PO Last administered on 10/03/16 12:06; Admin Dose 2 MG; Start 09/23/16 at 18:00 Hydromorphone HCl 1 mg 1 mg Q3H PRN IV PAIN Last administered on 10/03/16 13: 16; Admin Dose 1 MG; Start 09/24/16 at 10:00 Potassium Chloride/Sodium Chloride 1,000 ml @ 70 mls/hr [id number] IV Last administered on 10/03/16 13:21; Admin Dose 70 MLS/HR; Start 09/28/16 at 16:30 Ondansetron HCl/ Sodium Chloride (Zofran Inj/NS) 54 ml @ 216 mls/hr Q12H PRN IV NAUSEA AND/OR VOMITING; Start 09/29/16 at 22:00 Prednisone 5 mg 5 mg BID PO Last administered on 10/03/16 08:47; Admin Dose 5 MG; Start 09/29/16 at 21:00 Docetaxel 45 mg/ Sodium Chloride 100 ml @ 100 mls/hr Th@22 IV ; Start 10/06/16 at 22:00; Stop 10/27/16 at 22:59 Ondansetron HCl/ Dexamethasone/ Dextrose (Zofran Inj/ Decadron/D5W) 60 ml @ 252 mls/hr Th@2130 IV ; Start 10/06/16 at 21:30; Stop 10/27/16 at 21:45 JARAD CHOI MD Oct 03, 2016 13:38
[2016-10-03 14:16] LABS: ADD UMIC YES; URINE BILIRUBIN (Dip) NEGATIVE (NEGATIVE); URINE BLOOD (Dip) 1+ (NEGATIVE); URINE COLOR LT. YELLOW (YELLOW); URINE GLUCOSE (Dip) NEGATIVE (NEGATIVE); URINE KETONES (Dip) NEGATIVE (NEGATIVE); URINE LEUKOCYTE ESTERASE (Dip) 1+ (NEGATIVE); URINE NITRITE (Dip) NEGATIVE (NEGATIVE); URINE TOTAL PROTEIN (Dip) NEGATIVE (NEGATIVE); URINE UROBILINOGEN (Dip) 0.2 E.U./dL (0.1-1.0)
[2016-10-03 14:25] LABS: BACTERIA,URINE FEW; SQUAMOUS EPITHELIAL CELL,UR FEW
--- NOTE | 2016-10-03 18:36 | PN ---
Date/Time of Note Date/Time of Note DATE: 10/03/16 TIME: 18:34 Assessment/Plan VTE Prophylaxis VTE Prophylaxis Intervention: contraindicated VTE Contraindication Reason: thrombocytopenia Lines/Catheters IV Catheter Type (from Nrsg): PICC Line Central line still needed: Yes Urinary Cath still in place: Yes Reason Cath still needed: urinary retention Assessment/Plan Chief Complaint/Hosp Course ASSESSMENT AND PLAN: 1. Clostridium difficile colitis. Continue Flagyl and contact isolation. 2. Metastatic prostate cancer. Dr. Hernandez is following patient in oncology consultation. Continue chemotherapy and steroids. 3. Thrombocytopenia. Continue to monitor platelets. 4. Acute on chronic back pain. Dr. Ferguson is following the patient in pain management. Continue methadone and Dilaudid p.r.n. for breakthrough pain. 5. Anemia, this post blood transfusion, continue to monitor hemoglobin and hematocrit. Continue Protonix for peptic ulcer disease prophylaxis. Further recommendations based on clinical course. Plan of care discussed with Dr. Nichols. Problems: Subjective 24 Hr Interval Summary Free Text/Dictation Patient is status post blood transfusion yesterday, denies any nausea vomiting, tolerates diet well . Exam/Review of Systems Vital Signs Vitals Vital Signs Date Time Temp Pulse Resp B/P Pulse Ox O2 Delivery O2 Flow Rate FiO2 10/03/16 07:54 98.4 89 18 114/72 96 09/30/16 05:55 Room Air Intake and Output 10/02/16 10/02/16 10/03/16 14:59 22:59 06:59 Intake Total 1491 ml 790 ml Output Total 2000 ml 2200 ml Balance -509 ml -1410 ml Exam GENERAL: Well-developed, cachectic male, currently is awake, alert. HEENT: Head is atraumatic, normocephalic. PERRLA. NECK: Supple. No mass, no thyromegaly. LUNGS: Clear bilaterally. No rhonchi, wheezes, rales noted. HEART: Normal S1, S2. No murmurs, gallops, clicks, rubs noted. ABDOMEN: Flat, soft, nondistended, nontender. Bowel sounds present. EXTREMITIES: No edema. SKIN: There is no rash, petechiae noted. NEUROLOGIC: The patient is awake, alert, and oriented x3. Results Result Diagram: 1/16/17 0420 1/16/17 0420 Results 24 hrs Laboratory Tests Test 10/03/16 04:20 10/03/16 13:35 Alanine Aminotransferase (ALT/SGPT) 23 Albumin 2.3 L Albumin/Globulin Ratio 0.74 Alkaline Phosphatase 1276 H Anion Gap 12 Aspartate Amino Transf (AST/SGOT) 44 Basophils # 0.0 Basophils % 0.7 Blood Morphology Comment Blood Urea Nitrogen 5 L Calcium Level 7.0 L Carbon Dioxide Level 22 Chloride Level 107 Creatinine 0.31 L Direct Bilirubin 0.00 Eosinophils # 0.0 Eosinophils % 0.0 Globulin 3.10 Glucose Level 94 Hematocrit 29.6 #L Hemoglobin 10.4 #L Indirect Bilirubin 0.3 Lymphocytes # 0.4 L Lymphocytes % 16.2 Mean Corpuscular Hemoglobin 29.3 Mean Corpuscular Hemoglobin Concent 35.2 Mean Corpuscular Volume 83.4 Mean Platelet Volume 8.5 Monocytes # 0.0 L Monocytes % 0.9 Neutrophils # 2.2 Neutrophils % 82.2 H Nucleated Red Blood Cells # 0.0 Nucleated Red Blood Cells % 0.0 Platelet Count 49 #L Potassium Level 4.5 Red Blood Count 3.55 #L Red Cell Distribution Width 16.7 H Sodium Level 136 Total Bilirubin 0.3 Total Protein 5.4 L White Blood Count 2.6 L Urine Bacteria FEW Urine Bilirubin NEGATIVE Urine Clarity HAZY Urine Color LT. YELLOW Urine Glucose NEGATIVE Urine Hemoglobin 1+ H Urine Ketones NEGATIVE Urine Leukocyte Esterase 1+ H Urine Microscopic RBC 2-5 Urine Microscopic WBC 5-10 Urine Nitrite NEGATIVE Urine Specific [place] 1.010 Urine Squamous Epithelial Cells FEW Urine Total Protein NEGATIVE Urine Urobilinogen 0.2 E.U./dL Urine Yeast FEW Urine pH 7.5 Medications Medications Current Medications Bicalutamide (Casodex) 50 mg QAM PO Last administered on 10/03/16 08:59; Admin Dose 50 MG; Start 09/07/16 at 09:00 Docusate Sodium (Colace) 100 mg BID PRN PO CONSTIPATION Last administered on 07:52; Admin Dose 100 MG; Start 09/07/16 at 00:00 Escitalopram Oxalate (Lexapro) 5 mg DAILY PO Last administered on 10/03/16 08: 48; Admin Dose 5 MG; Start 09/07/16 at 09:00 Megestrol Acetate (Megace Susp) 400 mg BID PO Last administered on 10/03/16 08 :49; Admin Dose 400 MG; Start 09/07/16 at 09:00 Methylnaltrexone [place] (Relistor) 12 mg Q48H SC Last administered on 00:36; Admin Dose 12 MG; Start 09/07/16 at 00:00 Ondansetron HCl (Zofran Tab) 4 mg Q6H PRN PO NAUSEA AND/OR VOMITING Last administered on 09/19/16 05:30; Admin Dose 4 MG; Start 09/07/16 at 00:00 Acetaminophen (Tylenol Tab) 500 mg Q4H PRN PO PAIN AND OR ELEVATED TEMP Last administered on 09/29/16 00:08; Admin Dose 500 MG; Start 09/07/16 at 21:30 IV Flush (NS 10 ml) 10 ml PRN PRN IV IV PROTOCOL; Start 09/11/16 at 10:00 Calcium/Vitamin D (Oyster Shell/ Vit-D (500/200)) 1 tab BID PO Last administered on 10/03/16 08:48; Admin Dose 1 TAB; Start 09/12/16 at 14:00 IV Flush (NS 10 ml) 10 ml PRN PRN IV IV PROTOCOL; Start 09/21/16 at 12:00 Metronidazole (Flagyl) 500 mg QID PO Last administered on 10/03/16 17:11; Admin Dose 500 MG; Start 09/22/16 at 13:00 Methadone HCl (Methadone Liq (Ped)) 2 mg Q6 PO Last administered on 10/03/16 18:18; Admin Dose 2 MG; Start 09/23/16 at 18:00 Hydromorphone HCl 1 mg 1 mg Q3H PRN IV PAIN Last administered on 10/03/16 17: 11; Admin Dose 1 MG; Start 09/24/16 at 10:00 Potassium Chloride/Sodium Chloride 1,000 ml @ 70 mls/hr [id number] IV Last administered on 10/03/16 13:21; Admin Dose 70 MLS/HR; Start 09/28/16 at 16:30 Ondansetron HCl/ Sodium Chloride (Zofran Inj/NS) 54 ml @ 216 mls/hr Q12H PRN IV NAUSEA AND/OR VOMITING; Start 09/29/16 at 22:00 Prednisone 5 mg 5 mg BID PO Last administered on 10/03/16t 08:47; Admin Dose 5 MG; Start 09/29/16 at 21:00 Docetaxel 45 mg/ Sodium Chloride 100 ml @ 100 mls/hr Th@22 IV ; Start 10/06/16 at 22:00; Stop 10/27/16 at 22:59 Ondansetron HCl/ Dexamethasone/ Dextrose (Zofran Inj/ Decadron/D5W) 60 ml @ 252 mls/hr Th@2130 IV ; Start 10/06/16 at 21:30; Stop 10/27/16 at 21:45 SREE GRIFFITH Oct 03, 2016 18:36
[2016-10-03 19:32] VITALS: BP 107/65; RESP 18
[2016-10-04] MEDS: METHADONE (1 MG/1 ML PO SYG) PO SCH ×4 (00:53→17:58)
[2016-10-04] MEDS: HYDROmorphONE 1 MG/ML SYG IV PRN ×4 (04:03→20:54)
[2016-10-04] MEDS: NS + KCL 20 MEQ 1,000 ML IV SCH ×2 (05:48→17:07)
[2016-10-04 06:12] LABS: ALBUMIN 2.4 g/dl (3.3-4.9)
[2016-10-04 06:13] LABS: POTASSIUM 4.6 mmol/L (3.5-5.1)
[2016-10-04 06:15] LABS: ALBUMIN/GLOBULIN RATIO 0.77; BILIRUBIN,INDIRECT 0.3 mg/dl (0-1.1); BILIRUBIN,TOTAL 0.3 mg/dl (0.2-1.3); CREATININE 0.32 mg/dl (0.61-1.24); TOTAL PROTEIN 5.5 g/dl (6.1-8.1)
[2016-10-04 06:16] LABS: CALCIUM 7.4 mg/dl (8.4-10.2)
[2016-10-04 06:24] LABS: BASOPHILS % 0.6 % (0.0-2.0); EOSINOPHILS % 0.1 % (0.0-7.0); HEMATOCRIT 31.3 % (42.0-52.0); HEMOGLOBIN 10.6 g/dl (14.0-18.0); LYMPHOCYTES # 0.6 10^3/ul (0.8-2.9); MEAN CORPUSCULAR HEMOGLOBIN 28.5 pg (29.0-33.0); MEAN PLATELET VOLUME 8.8 fl (7.4-10.4); MONOCYTES % 1.2 % (0.0-11.0); NEUTROPHIL # 1.6 10^3/ul (1.6-7.5); NEUTROPHILS % 73.1 % (39.0-77.0); PLATELET COUNT 43 10^3/UL (140-440); RED BLOOD COUNT 3.73 10^6/ul (4.70-6.10); RED CELL DISTRIBUTION WIDTH 16.6 % (11.5-14.5); UNCORRECTED WBC 2.2 10^3/ul (4.8-10.8); WHITE BLOOD COUNT 2.2 10^3/ul (4.8-10.8)
[2016-10-04 06:39] LABS: CONDITION 1; LH ANALYZER COMMENTS 1; SUSPECT 1
[2016-10-04 08:28] VITALS: BP 110/68; RESP 18
[2016-10-04] MEDS: predniSONE 5 MG TAB PO SCH ×2 (09:01→20:54)
[2016-10-04] MEDS: PANTOPRAZOLE (EC) 40 MG TAB PO SCH (09:01)
[2016-10-04] MEDS: metroNIDAZOLE 500 MG TAB PO SCH ×4 (09:02→20:54)
[2016-10-04] MEDS: ESCITALOPRAM 10 MG TAB PO SCH (09:02)
[2016-10-04] MEDS: CALCIUM/VITAMIN D (500/200) TAB PO SCH ×2 (09:02→20:54)
[2016-10-04] MEDS: MEGESTROL (40 MG/ML) 10ML CUP PO SCH ×2 (09:02→20:54)
[2016-10-04] MEDS: BICALUTAMIDE 50 MG TAB PO SCH (09:16)
[2016-10-04 09:22] LABS: PLATELET ESTIMATE PLT APPEAR DECREASED
--- NOTE | 2016-10-04 14:38 | PN ---
Date/Time of Note Date/Time of Note DATE: 10/04/16 TIME: 14:34 Assessment/Plan VTE Prophylaxis VTE Prophylaxis Intervention: SCD's Lines/Catheters IV Catheter Type (from Nrsg): PICC Line Central line still needed: Yes Urinary Cath still in place: Yes Reason Cath still needed: urinary retention Assessment/Plan Chief Complaint/Hosp Course ASSESSMENT AND PLAN: 1. Clostridium difficile colitis. Continue Flagyl and contact isolation. 2. Metastatic prostate cancer. Dr. Hernandez is following patient in oncology consultation. Continue chemotherapy and steroids. 3. Thrombocytopenia. Continue to monitor platelets. 4. Acute on chronic back pain. Dr. Ferguson is following the patient in pain management. Continue methadone and Dilaudid p.r.n. for breakthrough pain. 5. Anemia, this post blood transfusion, continue to monitor hemoglobin and hematocrit. 6. UTI, Vanco pharmacy to dose. Continue Protonix for peptic ulcer disease prophylaxis. Further recommendations based on clinical course. Plan of care discussed with Dr. Nichols. Problems: Subjective 24 Hr Interval Summary Free Text/Dictation Patient is slightly confused according to RN, no fever nausea vomiting, pain is well controlled, generalized weakness. Exam/Review of Systems Vital Signs Vitals Vital Signs Date Time Temp Pulse Resp B/P Pulse Ox O2 Delivery O2 Flow Rate FiO2 10/04/16 08:28 98.2 87 18 110/68 96 Intake and Output 10/03/16 10/03/16 10/04/16 15:00 23:00 07:00 Intake Total 1240 ml 1050 ml Output Total 1000 ml 2200 ml Balance 240 ml -1150 ml Exam GENERAL: Well-developed, cachectic male, currently is awake, alert. HEENT: Head is atraumatic, normocephalic. PERRLA. NECK: Supple. No mass, no thyromegaly. LUNGS: Clear bilaterally. No rhonchi, wheezes, rales noted. HEART: Normal S1, S2. No murmurs, gallops, clicks, rubs noted. ABDOMEN: Flat, soft, nondistended, nontender. Bowel sounds present. EXTREMITIES: No edema. SKIN: There is no rash, petechiae noted. NEUROLOGIC: The patient is awake, alert, and oriented x3. Results Result Diagram: 10/04/160 10/04/16 0440 Results 24 hrs Laboratory Tests Test 10/04/16 04:40 Alanine Aminotransferase (ALT/SGPT) 28 Albumin 2.4 L Albumin/Globulin Ratio 0.77 Alkaline Phosphatase 1299 H Anion Gap 12 Aspartate Amino Transf (AST/SGOT) 37 Basophils # 0.0 Basophils % 0.6 Blood Morphology Comment Blood Urea Nitrogen 5 L Calcium Level 7.4 L Carbon Dioxide Level 22 Chloride Level 105 Creatinine 0.32 L Differential Comment AUTO w/SCAN Direct Bilirubin 0.00 Eosinophils # 0.0 Eosinophils % 0.1 Globulin 3.10 Glucose Level 106 Hematocrit 31.3 L Hemoglobin 10.6 L Indirect Bilirubin 0.3 Lymphocytes # 0.6 L Lymphocytes % 25.0 Mean Corpuscular Hemoglobin 28.5 L Mean Corpuscular Hemoglobin Concent 34.0 Mean Corpuscular Volume 84.0 Mean Platelet Volume 8.8 Monocytes # 0.0 L Monocytes % 1.2 Neutrophils # 1.6 Neutrophils % 73.1 Nucleated Red Blood Cells # 0.0 Nucleated Red Blood Cells % 0.0 Platelet Count 43 L Platelet Estimate PLT APPEAR DECREASED Potassium Level 4.6 Red Blood Count 3.73 L Red Cell Distribution Width 16.6 H Sodium Level 134 L Total Bilirubin 0.3 Total Protein 5.5 L White Blood Count 2.2 L Medications Medications Current Medications Bicalutamide (Casodex) 50 mg QAM PO Last administered on 10/04/16 09:16; Admin Dose 50 MG; Start 09/07/16 at 09:00 Docusate Sodium (Colace) 100 mg BID PRN PO CONSTIPATION Last administered on 07:52; Admin Dose 100 MG; Start 09/07/16 at 00:00 Escitalopram Oxalate (Lexapro) 5 mg DAILY PO Last administered on 10/04/16 09: 02; Admin Dose 5 MG; Start 09/07/16 at 09:00 Megestrol Acetate (Megace Susp) 400 mg BID PO Last administered on 10/04/16 09 :02; Admin Dose 400 MG; Start 09/07/16 at 09:00 Methylnaltrexone [place] (Relistor) 12 mg Q48H SC Last administered on 00:36; Admin Dose 12 MG; Start 09/07/16 at 00:00 Ondansetron HCl (Zofran Tab) 4 mg Q6H PRN PO NAUSEA AND/OR VOMITING Last administered on 09/19/16 05:30; Admin Dose 4 MG; Start 09/07/16 at 00:00 Acetaminophen (Tylenol Tab) 500 mg Q4H PRN PO PAIN AND OR ELEVATED TEMP Last administered on 09/29/16 00:08; Admin Dose 500 MG; Start 09/07/16 at 21:30 IV Flush (NS 10 ml) 10 ml PRN PRN IV IV PROTOCOL; Start 09/11/16 at 10:00 Calcium/Vitamin D (Oyster Shell/ Vit-D (500/200)) 1 tab BID PO Last administered on 10/04/16 09:02; Admin Dose 1 TAB; Start 09/12/16 at 14:00 IV Flush (NS 10 ml) 10 ml PRN PRN IV IV PROTOCOL; Start 09/21/16 at 12:00 Metronidazole (Flagyl) 500 mg QID PO Last administered on 10/04/16 12:08; Admin Dose 500 MG; Start 09/22/16 at 13:00 Methadone HCl (Methadone Liq (Ped)) 2 mg Q6 PO Last administered on 10/04/16 05:48; Admin Dose 2 MG; Start 09/23/16 at 18:00 Hydromorphone HCl 1 mg 1 mg Q3H PRN IV PAIN Last administered on 10/04/16 12: 07; Admin Dose 1 MG; Start 09/24/16 at 10:00 Potassium Chloride/Sodium Chloride 1,000 ml @ 70 mls/hr [id number] IV Last administered on 10/04/16 05:48; Admin Dose 70 MLS/HR; Start 09/28/16 at 16:30 Ondansetron HCl/ Sodium Chloride (Zofran Inj/NS) 54 ml @ 216 mls/hr Q12H PRN IV NAUSEA AND/OR VOMITING; Start 09/29/16 at 22:00 Prednisone 5 mg 5 mg BID PO Last administered on 10/04/16 09:01; Admin Dose 5 MG; Start 09/29/16 at 21:00 Docetaxel 45 mg/ Sodium Chloride 100 ml @ 100 mls/hr Th@22 IV ; Start 10/06/16 at 22:00; Stop 10/27/16 at 22:59 Ondansetron HCl/ Dexamethasone/ Dextrose (Zofran Inj/ Decadron/D5W) 60 ml @ 252 mls/hr Th@2130 IV ; Start 10/06/16 at 21:30; Stop 10/27/16 at 21:45 SREE GRIFFITH Oct 04, 2016 14:38
[2016-10-04] MEDS ORDERED: VANCOMYCIN IV PER PHARMACY XX SCH (15:00)
[2016-10-04] MEDS ORDERED: VANCOMYCIN 1.25 GM in SOD CHLORIDE 0.9% 250 ML IVPB SCH (16:15)
--- NOTE | 2016-10-04 17:35 | CONS ---
Date/Time of Note Date/Time of Note DATE: 10/04/16 TIME: 17:34 Assessment/Plan Assessment/Plan Chief Complaint/Hosp Course Metastatic prostate cancer. POS CHEMO # 1 chemotherapy and steroids - PER PROTOCOL Chemotherapy Docetaxel (Taxotere) 30 mg/m2 IV over 30 minutes once per day on days 1, 8, 15, 22, 29 Prednisone (Sterapred) 5 mg PO BID on days 1 to 42 Supportive medications Dexamethasone (Decadron) 8 mg (route not specified) once 1 hour before Docetaxel (Taxotere) Antiemetics "according to local practice" 42-day cycle for up to 5 cycles ANEMIA POST PRBC MONITOR CLOSELY OBSERVE FOR BLEEDING AND HEMOLYSIS Thrombocytopenia. Continue to monitor platelets. PANCYTOPENIA MONITOR DECONDITIONING PT Acute on chronic back pain. Dr. Ferguson is following the patient in pain management. Continue methadone and Dilaudid p.r.n. for breakthrough pain. Clostridium difficile colitis. Continue Flagyl and contact isolation. Problems: Consultation Date/Type/Reason Admit Date/Time Sep 06, 2016 at 22:01 Initial Consult Date 09/08/16 Type of Consultation: Hematology/Oncology Referring Provider: TIMOTHY MARAVILLA MD 24 HR Interval Summary Free Text/Dictation ALL NOTED POST CHEMO LAST WE MORE ALERT COUNT IS GOING DOWN NO BLEEDING Exam/Review of Systems Vital Signs Vitals Vital Signs Date Time Temp Pulse Resp B/P Pulse Ox O2 Delivery O2 Flow Rate FiO2 10/04/16 08:28 98.2 87 18 110/68 96 Intake and Output 10/03/16 10/03/16 10/04/16 15:00 23:00 07:00 Intake Total 1240 ml 1050 ml Output Total 1000 ml 2200 ml Balance 240 ml -1150 ml Exam GENERAL: Well-developed, cachectic male, currently is awake, alert. HEENT: Head is atraumatic, normocephalic. PERRLA. NECK: Supple. No mass, no thyromegaly. LUNGS: Clear bilaterally. No rhonchi, wheezes, rales noted. HEART: Normal S1, S2. No murmurs, gallops, clicks, rubs noted. ABDOMEN: Flat, soft, nondistended, nontender. Bowel sounds present. EXTREMITIES: No edema. SKIN: There is no rash, petechiae noted. NEUROLOGIC: The patient is awake, alert, and oriented x3. Results Result Diagram: 10/04/16 0440 10/04/16 0440 Results 24 hrs Laboratory Tests Test 10/04/16 04:40 Alanine Aminotransferase (ALT/SGPT) 28 Albumin 2.4 L Albumin/Globulin Ratio 0.77 Alkaline Phosphatase 1299 H Anion Gap 12 Aspartate Amino Transf (AST/SGOT) 37 Basophils # 0.0 Basophils % 0.6 Blood Morphology Comment Blood Urea Nitrogen 5 L Calcium Level 7.4 L Carbon Dioxide Level 22 Chloride Level 105 Creatinine 0.32 L Differential Comment AUTO w/SCAN Direct Bilirubin 0.00 Eosinophils # 0.0 Eosinophils % 0.1 Globulin 3.10 Glucose Level 106 Hematocrit 31.3 L Hemoglobin 10.6 L Indirect Bilirubin 0.3 Lymphocytes # 0.6 L Lymphocytes % 25.0 Mean Corpuscular Hemoglobin 28.5 L Mean Corpuscular Hemoglobin Concent 34.0 Mean Corpuscular Volume 84.0 Mean Platelet Volume 8.8 Monocytes # 0.0 L Monocytes % 1.2 Neutrophils # 1.6 Neutrophils % 73.1 Nucleated Red Blood Cells # 0.0 Nucleated Red Blood Cells % 0.0 Platelet Count 43 L Platelet Estimate PLT APPEAR DECREASED Potassium Level 4.6 Red Blood Count 3.73 L Red Cell Distribution Width 16.6 H Sodium Level 134 L Total Bilirubin 0.3 Total Protein 5.5 L White Blood Count 2.2 L Medications Medications Current Medications Bicalutamide (Casodex) 50 mg QAM PO Last administered on 10/04/16 09:16; Admin Dose 50 MG; Start 09/07/16 at 09:00 Docusate Sodium (Colace) 100 mg BID PRN PO CONSTIPATION Last administered on 07:52; Admin Dose 100 MG; Start 09/07/16 at 00:00 Escitalopram Oxalate (Lexapro) 5 mg DAILY PO Last administered on 10/04/16 09: 02; Admin Dose 5 MG; Start 09/07/16 at 09:00 Megestrol Acetate (Megace Susp) 400 mg BID PO Last administered on 10/04/16 09 :02; Admin Dose 400 MG; Start 09/07/16 at 09:00 Methylnaltrexone [place] (Relistor) 12 mg Q48H SC Last administered on 00:36; Admin Dose 12 MG; Start 12/21/16 at 00:00 Ondansetron HCl (Zofran Tab) 4 mg Q6H PRN PO NAUSEA AND/OR VOMITING Last administered on 09/19/16 05:30; Admin Dose 4 MG; Start 09/07/16 at 00:00 Acetaminophen (Tylenol Tab) 500 mg Q4H PRN PO PAIN AND OR ELEVATED TEMP Last administered on 09/29/16 00:08; Admin Dose 500 MG; Start 09/07/16 at 21:30 IV Flush (NS 10 ml) 10 ml PRN PRN IV IV PROTOCOL; Start 09/11/16 at 10:00 Calcium/Vitamin D (Oyster Shell/ Vit-D (500/200)) 1 tab BID PO Last administered on 10/04/16 09:02; Admin Dose 1 TAB; Start 09/12/16 at 14:00 IV Flush (NS 10 ml) 10 ml PRN PRN IV IV PROTOCOL; Start 09/21/16 at 12:00 Metronidazole (Flagyl) 500 mg QID PO Last administered on 10/04/16 12:08; Admin Dose 500 MG; Start 09/22/16 at 13:00 Methadone HCl (Methadone Liq (Ped)) 2 mg Q6 PO Last administered on 10/04/16 05:48; Admin Dose 2 MG; Start 09/23/16 at 18:00 Hydromorphone HCl 1 mg 1 mg Q3H PRN IV PAIN Last administered on 10/04/16 15: 52; Admin Dose 1 MG; Start 09/24/16 at 10:00 Potassium Chloride/Sodium Chloride 1,000 ml @ 70 mls/hr [id number] IV Last administered on 10/04/16 17:07; Admin Dose 70 MLS/HR; Start 09/28/16 at 16:30 Ondansetron HCl/ Sodium Chloride (Zofran Inj/NS) 54 ml @ 216 mls/hr Q12H PRN IV NAUSEA AND/OR VOMITING; Start 09/29/16 at 22:00 Prednisone 5 mg 5 mg BID PO Last administered on 10/04/16 09:01; Admin Dose 5 MG; Start 09/29/16 at 21:00 Docetaxel 45 mg/ Sodium Chloride 100 ml @ 100 mls/hr Th@22 IV ; Start 10/06/16 at 22:00; Stop 10/27/16 at 22:59 Ondansetron HCl 16 mg/ Dexamethasone 8 mg/Dextrose 60 ml @ 252 mls/hr Th@2130 IV ; Start 10/06/16 at 21:30; Stop 10/27/16 at 21:45 Vancomycin HCl 1.25 gm/Sodium Chloride 250 ml @ 83.333 mls/ hr NOW IVPB Last administered on 10/04/16t 17:07; Admin Dose 83.333 MLS/HR; Start 10/04/16 at 16: 15; Stop 10/04/16 at 19:14 Vancomycin HCl (Vancocin) 250 ml @ 125 mls/hr Q8H IVPB ; Start 10/05/16 at 01: 00 Miscellaneous Information (*Rx Drug Level Order Reminder*) VANCO TROUGH @ 1, 600 ON... ONCE ONCE XX ; Start 10/05/16 at 16:00; Stop 10/05/16 at 16:01 JARAD CHOI MD Oct 04, 2016 17:35
[2016-10-04 20:32] VITALS: BP 116/73; RESP 18
[2016-10-04 23:30] LABS: HEPARIN INDUCED PLATELET AB NEGATIVE (NEGATIVE)
[2016-10-05] MEDS: METHADONE (1 MG/1 ML PO SYG) PO SCH ×5 (00:25→23:10)
[2016-10-05] MEDS: METHYLNALTREXONE 12 MG/0.6 ML VIAL SC SCH (00:25)
[2016-10-05] MEDS: HYDROmorphONE 1 MG/ML SYG IV PRN ×7 (00:47→19:46)
[2016-10-05] MEDS: VANCOMYCIN 1 GM in NS 250 ML IVPB SCH ×3 (00:48→18:04)
[2016-10-05 05:22] LABS: HEMOGLOBIN 10.2 g/dl (14.0-18.0); MEAN CORPUSCULAR HEMOGLOBIN 28.6 pg (29.0-33.0); MEAN CORPUSCULAR HGB CONC 33.9 g/dl (32.0-37.0); MEAN CORPUSCULAR VOLUME 84.4 fl (82.0-101.0); MEAN PLATELET VOLUME 8.6 fl (7.4-10.4); PLATELET COUNT 47 10^3/UL (140-440); RED BLOOD COUNT 3.56 10^6/ul (4.70-6.10); RED CELL DISTRIBUTION WIDTH 16.4 % (11.5-14.5); UNCORRECTED WBC 1.9 10^3/ul (4.8-10.8); WHITE BLOOD COUNT 1.9 10^3/ul (4.8-10.8)
[2016-10-05 05:53] LABS: CONDITION 1; LH ANALYZER COMMENTS 1
[2016-10-05 06:03] LABS: ALBUMIN 2.4 g/dl (3.3-4.9)
[2016-10-05 06:04] LABS: POTASSIUM 4.2 mmol/L (3.5-5.1)
[2016-10-05 06:06] LABS: ALBUMIN/GLOBULIN RATIO 0.77; BILIRUBIN,INDIRECT 0.2 mg/dl (0-1.1); BILIRUBIN,TOTAL 0.2 mg/dl (0.2-1.3); CREATININE 0.32 mg/dl (0.61-1.24); TOTAL PROTEIN 5.5 g/dl (6.1-8.1)
[2016-10-05 06:07] LABS: CALCIUM 7.4 mg/dl (8.4-10.2)
[2016-10-05] MEDS: PANTOPRAZOLE (EC) 40 MG TAB PO SCH (07:55)
[2016-10-05 08:25] VITALS: BP 109/72; RESP 18
[2016-10-05] MEDS: CALCIUM/VITAMIN D (500/200) TAB PO SCH ×2 (08:34→19:46)
[2016-10-05] MEDS: ESCITALOPRAM 10 MG TAB PO SCH (08:34)
[2016-10-05] MEDS: MEGESTROL (40 MG/ML) 10ML CUP PO SCH ×2 (08:34→19:46)
[2016-10-05] MEDS: predniSONE 5 MG TAB PO SCH ×2 (08:34→19:46)
[2016-10-05] MEDS: metroNIDAZOLE 500 MG TAB PO SCH ×4 (08:34→19:46)
[2016-10-05] MEDS: BICALUTAMIDE 50 MG TAB PO SCH (08:39)
[2016-10-05 10:38] LABS: ANISOCYTOSIS 1+; LYMPHOCYTES # 0.6 10^3/ul (0.8-2.9); MONOCYTE # 0.1 10^3/ul (0.3-0.9); NEUTROPHIL # 0.8 10^3/ul (1.6-7.5)
[2016-10-05 10:39] LABS: HYPOCHROMASIA 1+
[2016-10-05] MEDS: NS + KCL 20 MEQ 1,000 ML IV SCH ×2 (10:52→19:48)
--- NOTE | 2016-10-05 15:31 | PN ---
Date/Time of Note Date/Time of Note DATE: 10/05/16 TIME: 15:29 Assessment/Plan VTE Prophylaxis VTE Prophylaxis Intervention: SCD's Lines/Catheters IV Catheter Type (from Nrsg): PICC Line Central line still needed: Yes Urinary Cath still in place: Yes Reason Cath still needed: urinary retention Assessment/Plan Chief Complaint/Hosp Course ASSESSMENT AND PLAN: 1. Clostridium difficile colitis. Continue Flagyl and contact isolation. 2. Metastatic prostate cancer. Dr. Hernandez is following patient in oncology consultation. Continue chemotherapy and steroids. 3. Thrombocytopenia. Continue to monitor platelets. 4. Acute on chronic back pain. Dr. Ferguson is following the patient in pain management. Continue methadone and Dilaudid p.r.n. for breakthrough pain. 5. Anemia, this post blood transfusion, continue to monitor hemoglobin and hematocrit. 6. MRSA UTI, cont Vanco, Dr Schuler for ID consult. Continue Protonix for peptic ulcer disease prophylaxis. Further recommendations based on clinical course. Plan of care discussed with Dr. Nichols. Problems: Subjective 24 Hr Interval Summary Free Text/Dictation Patient looks comfortable, awake alert, no fever per RN, no nausea no vomiting. Pending chemotherapy tomorrow. Exam/Review of Systems Vital Signs Vitals Vital Signs Date Time Temp Pulse Resp B/P Pulse Ox O2 Delivery O2 Flow Rate FiO2 10/05/16 08:25 98.2 83 18 109/72 100 Intake and Output 10/04/16 10/04/16 10/05/16 15:00 23:00 07:00 Intake Total 1500 ml 1150 ml Output Total 1000 ml 1100 ml Balance 500 ml 50 ml Exam GENERAL: Well-developed, cachectic male, currently is awake, alert. HEENT: Head is atraumatic, normocephalic. PERRLA. NECK: Supple. No mass, no thyromegaly. LUNGS: Clear bilaterally. No rhonchi, wheezes, rales noted. HEART: Normal S1, S2. No murmurs, gallops, clicks, rubs noted. ABDOMEN: Flat, soft, nondistended, nontender. Bowel sounds present. EXTREMITIES: No edema. SKIN: There is no rash, petechiae noted. NEUROLOGIC: The patient is awake, alert, and oriented x3. Results Result Diagram: 10/05/1644410/05/16444 Results 24 hrs Laboratory Tests Test 1/18/17 04:45 Alanine Aminotransferase (ALT/SGPT) 29 Albumin 2.4 L Albumin/Globulin Ratio 0.77 Alkaline Phosphatase 1166 H Anion Gap 11 Anisocytosis 1+ Aspartate Amino Transf (AST/SGOT) 30 Band Neutrophils % 20.0 H Blood Morphology Comment Blood Urea Nitrogen 6 L Calcium Level 7.4 L Carbon Dioxide Level 23 Chloride Level 104 Creatinine 0.32 L Direct Bilirubin 0.00 Globulin 3.10 Glucose Level 100 Hematocrit 30.0 L Hemoglobin 10.2 L Hypochromasia 1+ Indirect Bilirubin 0.2 Lymphocytes # 0.6 L Lymphocytes % 32.0 Mean Corpuscular Hemoglobin 28.6 L Mean Corpuscular Hemoglobin Concent 33.9 Mean Corpuscular Volume 84.4 Mean Platelet Volume 8.6 Monocytes # 0.1 L Monocytes % 4.0 Neutrophils # 0.8 L Neutrophils % 44.0 Nucleated Red Blood Cells % 3.0 H Platelet Count 47 L Potassium Level 4.2 Red Blood Count 3.56 L Red Cell Distribution Width 16.4 H Sodium Level 134 L Total Bilirubin 0.2 Total Protein 5.5 L White Blood Count 1.9 L Medications Medications Current Medications Bicalutamide (Casodex) 50 mg QAM PO Last administered on 10/05/16 08:39; Admin Dose 50 MG; Start 09/07/16 at 09:00 Docusate Sodium (Colace) 100 mg BID PRN PO CONSTIPATION Last administered on 07:52; Admin Dose 100 MG; Start 09/07/16 at 00:00 Escitalopram Oxalate (Lexapro) 5 mg DAILY PO Last administered on 10/05/16 08: 34; Admin Dose 5 MG; Start 09/07/16 at 09:00 Megestrol Acetate (Megace Susp) 400 mg BID PO Last administered on 10/05/16 08 :34; Admin Dose 400 MG; Start 09/07/16 at 09:00 Methylnaltrexone [place] (Relistor) 12 mg Q48H SC Last administered on 00:25; Admin Dose 12 MG; Start 09/07/16 at 00:00 Ondansetron HCl (Zofran Tab) 4 mg Q6H PRN PO NAUSEA AND/OR VOMITING Last administered on 09/19/16 05:30; Admin Dose 4 MG; Start 09/07/16 at 00:00 Acetaminophen (Tylenol Tab) 500 mg Q4H PRN PO PAIN AND OR ELEVATED TEMP Last administered on 09/29/16 00:08; Admin Dose 500 MG; Start 09/07/16 at 21:30 IV Flush (NS 10 ml) 10 ml PRN PRN IV IV PROTOCOL; Start 09/11/16 at 10:00 Calcium/Vitamin D ([place]/ Vit-D (500/200)) 1 tab BID PO Last administered on 10/05/16 08:34; Admin Dose 1 TAB; Start 09/12/16 at 14:00 IV Flush (NS 10 ml) 10 ml PRN PRN IV IV PROTOCOL; Start 09/21/16 at 12:00 Metronidazole (Flagyl) 500 mg QID PO Last administered on 10/05/16 12:12; Admin Dose 500 MG; Start 09/22/16 at 13:00 Methadone HCl (Methadone Liq (Ped)) 2 mg Q6 PO Last administered on 10/05/16 11:45; Admin Dose 2 MG; Start 09/23/16 at 18:00 Hydromorphone HCl 1 mg 1 mg Q3H PRN IV PAIN Last administered on 10/05/16 13: 28; Admin Dose 1 MG; Start 09/24/16 at 10:00 Potassium Chloride/Sodium Chloride 1,000 ml @ 70 mls/hr [id number] IV Last administered on 10/05/16 10:52; Admin Dose 70 MLS/HR; Start 09/28/16 at 16:30 Ondansetron HCl/ Sodium Chloride (Zofran Inj/NS) 54 ml @ 216 mls/hr Q12H PRN IV NAUSEA AND/OR VOMITING; Start 09/29/16 at 22:00 Prednisone 5 mg 5 mg BID PO Last administered on 10/05/16 08:34; Admin Dose 5 MG; Start 09/29/16 at 21:00 Docetaxel 45 mg/ Sodium Chloride 100 ml @ 100 mls/hr Th@22 IV ; Start 10/06/16 at 22:00; Stop 10/27/16 at 22:59 Ondansetron HCl 16 mg/ Dexamethasone 8 mg/Dextrose 60 ml @ 252 mls/hr Th@2130 IV ; Start 10/06/16 at 21:30; Stop 10/27/16 at 21:45 Vancomycin HCl (Vancocin) 250 ml @ 125 mls/hr Q8H IVPB Last administered on t 08:34; Admin Dose 125 MLS/HR; Start 10/05/16 at 01:00 Miscellaneous Information (*Rx Drug Level Order Reminder*) VANCO TROUGH @ 1, 600 ON... ONCE ONCE XX ; Start 10/05/16 at 16:00; Stop 10/05/16 at 16:01 SREE GRIFFITH Oct 05, 2016 15:31
[2016-10-05] MEDS: ACETAMINOPHEN 500 MG TAB PO PRN (15:37)
--- NOTE | 2016-10-05 19:26 | CONS ---
DATE OF ADMISSION: 09/06/2016 DATE OF CONSULTATION: 10/05/2016 TYPE OF CONSULTATION: Infectious Disease. REASON FOR CONSULTATION: Antibiotic management. HISTORY OF PRESENT ILLNESS: Mr. 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 Irene Zhu endoscopy and managed by Dr. Suzan Hernandez. He was referred to [facility] for weakness and dehydration. His hospital course has been prolonged and very long. He has been seen by numerous consultants inc luding Dr. Hernandez. I am specifically asked to see the patient because of development of Clostrid ium difficile colitis for which he is on Flagyl, and MRSA UTI for which he is on IV vancomycin. Oth er problems include metastatic prostate cancer. He is on chemotherapy and steroids, thrombocytopeni a, acute on chronic back pain, anemia, status post blood transfusions. The patient currently has a white count of 1.9, H and H 10.2 and 30, platelet count 47,000, BUN and creatinine 6/0.32. PAST MEDICAL HISTORY: Operations as outlined. FAMILY HISTORY: Noncontributory. SOCIAL HISTORY: Does not smoke, drink or abuse drugs. ALLERGIES: NONE TO PENICILLIN, SULFA OR FOODS. MEDICATIONS: Per chart. REVIEW OF SYSTEMS: As per HPI. PHYSICAL EXAMINATION: GENERAL: The patient is an elderly cachectic appearing male who is awake, responsive, surrounded by his family, in no acute distress. VITAL SIGNS: Stable. He is afebrile. SKIN: Without generalized rash. HEENT: Within normal limits. NECK: Supple. LYMPH NODES: None palpable. CHEST: Decreased breath sounds at the bases. HEART: Without murmur or gallop. ABDOMEN: Soft, nontender, without organosplenomegaly or masses. EXTREMITIES: Without cyanosis, clubbing, or edema. RECTAL AND GENITAL: Deferred. NEUROLOGIC: No focal neurological abnormalities. IMPRESSION AND PLAN: The patient currently has methicillin-resistant Staphylococcus aureus in his u rine. He is sensitive to Bactrim, but he is better off right now being on vancomycin since he has C . difficile as well for which he is on Flagyl. Will consider oral vancomycin if he does not respond . He had a PICC line insertion on 09/21/2016 in the left arm, into the left internal jugular. We w ill be happy to continue in his care. Dictated By: PINO ROBINS MD, JD/ADRIANA Conf#: [id number] DID#: [id number]
[2016-10-05 19:41] VITALS: BP 123/78; RESP 19
[2016-10-05] MEDS: DOCUSATE SODIUM 100 MG CAP PO PRN (19:46)
[2016-10-05] MEDS: ONDANSETRON 4 MG TAB PO PRN (19:46)
[2016-10-05] MEDS: ZOLPIDEM 5 MG TAB PO PRN (22:33)
--- NOTE | 2016-10-05 23:29 | CONS ---
Date/Time of Note Date/Time of Note DATE: 10/05/16 TIME: 23:29 Assessment/Plan Assessment/Plan Chief Complaint/Hosp Course Metastatic prostate cancer. POS CHEMO # 1 chemotherapy and steroids - PER PROTOCOL Chemotherapy Docetaxel (Taxotere) 30 mg/m2 IV over 30 minutes once per day on days 1, 8, 15, 22, 29 Prednisone (Sterapred) 5 mg PO BID on days 1 to 42 Supportive medications Dexamethasone (Decadron) 8 mg (route not specified) once 1 hour before Docetaxel (Taxotere) Antiemetics "according to local practice" 42-day cycle for up to 5 cycles ANEMIA POST PRBC MONITOR CLOSELY OBSERVE FOR BLEEDING AND HEMOLYSIS Thrombocytopenia. Continue to monitor platelets. PANCYTOPENIA MONITOR DECONDITIONING PT Acute on chronic back pain. Dr. Ferguson is following the patient in pain management. Continue methadone and Dilaudid p.r.n. for breakthrough pain. Clostridium difficile colitis. Continue Flagyl and contact isolation. Problems: Consultation Date/Type/Reason Admit Date/Time Sep 06, 2016 at 22:01 Initial Consult Date 09/08/16 Type of Consultation: Hematology/Oncology Referring Provider: TIMOTHY MARAVILLA MD 24 HR Interval Summary Free Text/Dictation ALL NOTED NO NEW EVENTS COUNT REVIEWED NO BLEEDING Exam/Review of Systems Vital Signs Vitals Vital Signs Date Time Temp Pulse Resp B/P Pulse Ox O2 Delivery O2 Flow Rate FiO2 10/05/16 19:41 98.4 84 19 123/78 97 Intake and Output 10/04/16 10/04/16 10/05/16 15:00 23:00 07:00 Intake Total 1500 ml 1150 ml Output Total 1000 ml 1100 ml Balance 500 ml 50 ml Exam Constitutional: alert, oriented Psych: nl mood/affect Head: normocephalic Eyes: EOMI, nl conjunctiva ENMT: nl external ears & nose Neck: non-tender Respiratory: clear to auscultation Cardiovascular: nl pulses Gastrointestinal: soft, tender (diffuse tenderness ) Extremities: normal pulses 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: nl speech Skin: nl turgor Lymph: nontender Results Result Diagram: 10/05/165 10/05/165 Results 24 hrs Laboratory Tests Test 10/05/16 04:45 10/05/16 16:06 Alanine Aminotransferase (ALT/SGPT) 29 Albumin 2.4 L Albumin/Globulin Ratio 0.77 Alkaline Phosphatase 1166 H Anion Gap 11 Anisocytosis 1+ Aspartate Amino Transf (AST/SGOT) 30 Band Neutrophils % 20.0 H Blood Morphology Comment Blood Urea Nitrogen 6 L Calcium Level 7.4 L Carbon Dioxide Level 23 Chloride Level 104 Creatinine 0.32 L Direct Bilirubin 0.00 Globulin 3.10 Glucose Level 100 Hematocrit 30.0 L Hemoglobin 10.2 L Hypochromasia 1+ Indirect Bilirubin 0.2 Lymphocytes # 0.6 L Lymphocytes % 32.0 Mean Corpuscular Hemoglobin 28.6 L Mean Corpuscular Hemoglobin Concent 33.9 Mean Corpuscular Volume 84.4 Mean Platelet Volume 8.6 Monocytes # 0.1 L Monocytes % 4.0 Neutrophils # 0.8 L Neutrophils % 44.0 Nucleated Red Blood Cells % 3.0 H Platelet Count 47 L Potassium Level 4.2 Red Blood Count 3.56 L Red Cell Distribution Width 16.4 H Sodium Level 134 L Total Bilirubin 0.2 Total Protein 5.5 L White Blood Count 1.9 L Vancomycin Level Trough 13.7 Medications Medications Current Medications Bicalutamide (Casodex) 50 mg QAM PO Last administered on 10/05/16 08:39; Admin Dose 50 MG; Start 09/07/16 at 09:00 Docusate Sodium (Colace) 100 mg BID PRN PO CONSTIPATION Last administered on 19:46; Admin Dose 100 MG; Start 09/07/16 at 00:00 Escitalopram Oxalate (Lexapro) 5 mg DAILY PO Last administered on 10/05/16 08: 34; Admin Dose 5 MG; Start 09/07/16 at 09:00 Megestrol Acetate (Megace Susp) 400 mg BID PO Last administered on 10/05/16 19 :46; Admin Dose 400 MG; Start 09/07/16 at 09:00 Methylnaltrexone [place] (Relistor) 12 mg Q48H SC Last administered on 00:25; Admin Dose 12 MG; Start 09/07/16 at 00:00 Ondansetron HCl (Zofran Tab) 4 mg Q6H PRN PO NAUSEA AND/OR VOMITING Last administered on 10/05/16 19:46; Admin Dose 4 MG; Start 09/07/16 at 00:00 Acetaminophen (Tylenol Tab) 500 mg Q4H PRN PO PAIN AND OR ELEVATED TEMP Last administered on 10/05/16 15:37; Admin Dose 500 MG; Start 09/07/16 at 21:30 IV Flush (NS 10 ml) 10 ml PRN PRN IV IV PROTOCOL; Start 09/11/16 at 10:00 Calcium/Vitamin D (Oyster Shell/ Vit-D (500/200)) 1 tab BID PO Last administered on 10/05/16 19:46; Admin Dose 1 TAB; Start 09/12/16 at 14:00 IV Flush (NS 10 ml) 10 ml PRN PRN IV IV PROTOCOL; Start 09/21/16 at 12:00 Metronidazole (Flagyl) 500 mg QID PO Last administered on 10/05/16 19:46; Admin Dose 500 MG; Start 09/22/16 at 13:00 Methadone HCl (Methadone Liq (Ped)) 2 mg Q6 PO Last administered on 10/05/16 23:10; Admin Dose 2 MG; Start 09/23/16 at 18:00 Hydromorphone HCl 1 mg 1 mg Q3H PRN IV PAIN Last administered on 10/05/16 19: 46; Admin Dose 1 MG; Start 09/24/16 at 10:00 Potassium Chloride/Sodium Chloride 1,000 ml @ 70 mls/hr [id number] IV Last administered on 10/05/16 19:48; Admin Dose 70 MLS/HR; Start 09/28/16 at 16:30 Ondansetron HCl/ Sodium Chloride (Zofran Inj/NS) 54 ml @ 216 mls/hr Q12H PRN IV NAUSEA AND/OR VOMITING; Start 09/29/16 at 22:00 Prednisone 5 mg 5 mg BID PO Last administered on 10/05/16 19:46; Admin Dose 5 MG; Start 09/29/16 at 21:00 Docetaxel 45 mg/ Sodium Chloride 100 ml @ 100 mls/hr Th@22 IV ; Start 10/06/16 at 22:00; Stop 10/27/16 at 22:59 Ondansetron HCl 16 mg/ Dexamethasone 8 mg/Dextrose 60 ml @ 252 mls/hr Th@2130 IV ; Start 10/06/16 at 21:30; Stop 10/27/16 at 21:45 Vancomycin HCl (Vancocin) 250 ml @ 125 mls/hr Q8H IVPB Last administered on t 18:04; Admin Dose 125 MLS/HR; Start 10/05/16 at 01:00 JARAD CHOI MD Oct 05, 2016 23:29
[2016-10-05] MEDS ORDERED: FILGRASTIM 300 MCG INJ SC ONE (23:35)
[2016-10-06] MEDS: HYDROmorphONE 1 MG/ML SYG IV PRN ×6 (00:48→20:33)
[2016-10-06] MEDS: VANCOMYCIN 1 GM in NS 250 ML IVPB SCH ×3 (00:49→17:27)
[2016-10-06 05:16] LABS: HEMATOCRIT 30.6 % (42.0-52.0); HEMOGLOBIN 10.4 g/dl (14.0-18.0); MEAN CORPUSCULAR HGB CONC 34.2 g/dl (32.0-37.0); MEAN CORPUSCULAR VOLUME 84.8 fl (82.0-101.0); MEAN PLATELET VOLUME 8.7 fl (7.4-10.4); PLATELET COUNT 52 10^3/UL (140-440); RED BLOOD COUNT 3.61 10^6/ul (4.70-6.10); RED CELL DISTRIBUTION WIDTH 15.9 % (11.5-14.5); UNCORRECTED WBC 1.9 10^3/ul (4.8-10.8); WHITE BLOOD COUNT 1.9 10^3/ul (4.8-10.8)
[2016-10-06] MEDS: METHADONE (1 MG/1 ML PO SYG) PO SCH ×3 (05:22→17:27)
[2016-10-06] MEDS: DOCUSATE SODIUM 100 MG CAP PO PRN (05:22)
[2016-10-06] MEDS: PANTOPRAZOLE (EC) 40 MG TAB PO SCH (05:22)
[2016-10-06 05:27] LABS: ALBUMIN 2.4 g/dl (3.3-4.9); POTASSIUM 4.2 mmol/L (3.5-5.1)
[2016-10-06 05:29] LABS: BILIRUBIN,INDIRECT 0.2 mg/dl (0-1.1); BILIRUBIN,TOTAL 0.2 mg/dl (0.2-1.3); CREATININE 0.34 mg/dl (0.61-1.24)
[2016-10-06 05:30] LABS: ALBUMIN/GLOBULIN RATIO 0.77; CALCIUM 7.6 mg/dl (8.4-10.2); TOTAL PROTEIN 5.5 g/dl (6.1-8.1)
[2016-10-06 05:31] LABS: CONDITION 1; LH ANALYZER COMMENTS 1
[2016-10-06 08:54] VITALS: BP 109/82; RESP 18
[2016-10-06] MEDS: MEGESTROL (40 MG/ML) 10ML CUP PO SCH ×2 (09:18→21:31)
[2016-10-06] MEDS: CALCIUM/VITAMIN D (500/200) TAB PO SCH ×2 (09:20→20:36)
[2016-10-06] MEDS: ESCITALOPRAM 10 MG TAB PO SCH (09:20)
[2016-10-06] MEDS: predniSONE 5 MG TAB PO SCH ×2 (09:20→20:36)
[2016-10-06] MEDS: BICALUTAMIDE 50 MG TAB PO SCH (09:32)
[2016-10-06] MEDS: metroNIDAZOLE 500 MG TAB PO SCH ×4 (09:33→20:36)
[2016-10-06 11:09] LABS: LYMPHOCYTES # 0.5 10^3/ul (0.8-2.9); MONOCYTE # 0.1 10^3/ul (0.3-0.9); NEUTROPHIL # 0.8 10^3/ul (1.6-7.5)
[2016-10-06 11:10] LABS: HYPOCHROMASIA 1+
[2016-10-06 11:11] LABS: ANISOCYTOSIS 1+
--- NOTE | 2016-10-06 12:10 | CONS ---
Date/Time of Note Date/Time of Note DATE: 10/06/16 TIME: 12:10 Assessment/Plan Assessment/Plan Chief Complaint/Hosp Course Metastatic prostate cancer. POS CHEMO # 1 chemotherapy and steroids - PER PROTOCOL Chemotherapy Docetaxel (Taxotere) 30 mg/m2 IV over 30 minutes once per day on days 1, 8, 15, 22, 29 Prednisone (Sterapred) 5 mg PO BID on days 1 to 42 Supportive medications Dexamethasone (Decadron) 8 mg (route not specified) once 1 hour before Docetaxel (Taxotere) Antiemetics "according to local practice" 42-day cycle for up to 5 cycles ANEMIA POST PRBC MONITOR CLOSELY OBSERVE FOR BLEEDING AND HEMOLYSIS Thrombocytopenia. Continue to monitor platelets. PANCYTOPENIA MONITOR DECONDITIONING PT Acute on chronic back pain. Dr. Ferguson is following the patient in pain management. Continue methadone and Dilaudid p.r.n. for breakthrough pain. Clostridium difficile colitis. Continue Flagyl and contact isolation. Problems: Consultation Date/Type/Reason Admit Date/Time Sep 06, 2016 at 22:01 Initial Consult Date 09/08/16 Type of Consultation: Hematology/Oncology Referring Provider: TIMOTHY MARAVILLA MD 24 HR Interval Summary Free Text/Dictation ALL NOTED NO NEW EVENTS POST CHEMO Exam/Review of Systems Vital Signs Vitals Vital Signs Date Time Temp Pulse Resp B/P Pulse Ox O2 Delivery O2 Flow Rate FiO2 10/06/16 08:54 98.2 82 18 109/82 97 Intake and Output 10/05/16 10/05/16 10/06/16 15:00 23:00 07:00 Intake Total 250 ml 1380 ml 1450 ml Output Total 2200 ml 2300 ml Balance 250 ml -820 ml -850 ml Exam Constitutional: alert, oriented Psych: nl mood/affect Head: normocephalic Eyes: EOMI, nl conjunctiva ENMT: nl external ears & nose Neck: non-tender Respiratory: clear to auscultation Cardiovascular: nl pulses Gastrointestinal: soft, tender (diffuse tenderness ) Extremities: normal pulses 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: nl speech Skin: nl turgor Lymph: nontender Results Result Diagram: 10/06/16 0420 10/06/16 0420 Results 24 hrs Laboratory Tests Test 10/05/16 16:06 10/06/16 04:20 Vancomycin Level Trough 13.7 Alanine Aminotransferase (ALT/SGPT) 24 Albumin 2.4 L Albumin/Globulin Ratio 0.77 Alkaline Phosphatase 1048 H Anion Gap 13 Anisocytosis 1+ Aspartate Amino Transf (AST/SGOT) 32 Band Neutrophils % 30.0 H Blood Morphology Comment Blood Urea Nitrogen 5 L Calcium Level 7.6 L Carbon Dioxide Level 22 Chloride Level 104 Creatinine 0.34 L Differential Comment AUTO DIFF Direct Bilirubin 0.00 Globulin 3.10 Glucose Level 91 Hematocrit 30.6 L Hemoglobin 10.4 L Hypochromasia 1+ Indirect Bilirubin 0.2 Lymphocytes # 0.5 L Lymphocytes % 25.0 Mean Corpuscular Hemoglobin 29.0 Mean Corpuscular Hemoglobin Concent 34.2 Mean Corpuscular Volume 84.8 Mean Platelet Volume 8.7 Monocytes # 0.1 L Monocytes % 4.0 Neutrophils # 0.8 L Neutrophils % 41.0 Platelet Count 52 L Potassium Level 4.2 Red Blood Count 3.61 L Red Cell Distribution Width 15.9 H Sodium Level 135 Total Bilirubin 0.2 Total Protein 5.5 L White Blood Count 1.9 L Medications Medications Current Medications Bicalutamide (Casodex) 50 mg QAM PO Last administered on 10/06/16 09:32; Admin Dose 50 MG; Start 09/07/16 at 09:00 Docusate Sodium (Colace) 100 mg BID PRN PO CONSTIPATION Last administered on 05:22; Admin Dose 100 MG; Start 09/07/16 at 00:00 Escitalopram Oxalate (Lexapro) 5 mg DAILY PO Last administered on 10/06/16 09: 20; Admin Dose 5 MG; Start 09/07/16 at 09:00 Megestrol Acetate (Megace Susp) 400 mg BID PO Last administered on 10/06/16 09 :18; Admin Dose 400 MG; Start 09/07/16 at 09:00 Methylnaltrexone [place] (Relistor) 12 mg Q48H SC Last administered on 00:25; Admin Dose 12 MG; Start 09/07/16 at 00:00 Ondansetron HCl (Zofran Tab) 4 mg Q6H PRN PO NAUSEA AND/OR VOMITING Last administered on 10/05/16 19:46; Admin Dose 4 MG; Start 09/07/16 at 00:00 Acetaminophen (Tylenol Tab) 500 mg Q4H PRN PO PAIN AND OR ELEVATED TEMP Last administered on 10/05/16 15:37; Admin Dose 500 MG; Start 09/07/16 at 21:30 IV Flush (NS 10 ml) 10 ml PRN PRN IV IV PROTOCOL; Start 09/11/16 at 10:00 Calcium/Vitamin D (Oyster Shell/ Vit-D (500/200)) 1 tab BID PO Last administered on 10/06/16 09:20; Admin Dose 1 TAB; Start 09/12/16 at 14:00 IV Flush (NS 10 ml) 10 ml PRN PRN IV IV PROTOCOL; Start 09/21/16 at 12:00 Metronidazole (Flagyl) 500 mg QID PO Last administered on 10/06/16 09:33; Admin Dose 500 MG; Start 09/22/16 at 13:00 Methadone HCl (Methadone Liq (Ped)) 2 mg Q6 PO Last administered on 10/06/16 05:22; Admin Dose 2 MG; Start 09/23/16 at 18:00 Hydromorphone HCl 1 mg 1 mg Q3H PRN IV PAIN Last administered on 10/06/16 06: 30; Admin Dose 1 MG; Start 09/24/16 at 10:00 Potassium Chloride/Sodium Chloride 1,000 ml @ 70 mls/hr [id number] IV Last administered on 10/05/16 19:48; Admin Dose 70 MLS/HR; Start 09/28/16 at 16:30 Ondansetron HCl/ Sodium Chloride (Zofran Inj/NS) 54 ml @ 216 mls/hr Q12H PRN IV NAUSEA AND/OR VOMITING; Start 09/29/16 at 22:00 Prednisone 5 mg 5 mg BID PO Last administered on 10/06/16 09:20; Admin Dose 5 MG; Start 09/29/16 at 21:00 Docetaxel 45 mg/ Sodium Chloride 100 ml @ 100 mls/hr Th@22 IV ; Start 10/06/16 at 22:00; Stop 10/27/16 at 22:59 Ondansetron HCl 16 mg/ Dexamethasone 8 mg/Dextrose 60 ml @ 252 mls/hr Th@2130 IV ; Start 10/06/16 at 21:30; Stop 10/27/16 at 21:45 Vancomycin HCl (Vancocin) 250 ml @ 125 mls/hr Q8H IVPB Last administered on t 09:18; Admin Dose 125 MLS/HR; Start 10/05/16 at 01:00 JARAD CHOI MD Oct 06, 2016 12:10
--- NOTE | 2016-10-06 16:28 | PN ---
DATE: 10/06/2016 SUBJECTIVE: No acute changes. The patient is lying comfortably in bed. No fevers. WBC today 1.9, platelets 52, neutrophils 41, bands 30, lymphocytes 25, monos 4. BUN 5, creatinine 0.34. MICROBIOLOGY: Urine culture growing MRSA. Stool cultures on admission 09/18/2016 came back positiv e for Clostridium difficile. ANTIMICROBIALS: 1. IV vancomycin. 2. Oral Flagyl. INDWELLINGS: The patient has PICC line in his left upper extremity. PHYSICAL EXAMINATION: GENERAL: This is a cachectic elderly man who is awake, in no distress. HEENT: Head atraumatic, normocephalic. Sclerae anicteric. Buccal mucosa dry. NECK: Supple. CHEST: Rise symmetrical. Breath sounds diminished at bases. HEART: S1, S2. ABDOMEN: Soft. Bowel sounds present. EXTREMITIES: Without cyanosis. ASSESSMENT: 1. Methicillin-resistant Staphylococcus aureus urinary tract infection. 2. Clostridium difficile colitis. 3. Metastatic prostate carcinoma, status post chemo. 4. Pancytopenia. 5. Severe deconditioning. PLAN: The patient remains stable. We will continue him on current regimen. Follow recommendations of consultants. Monitor renal function. Continue chemotherapy as per oncology. Dictated By: EUNICE GUNTER PROMOTIONS PRODUCER for PINO MULLINS/NTS Conf#: [id number] DID#: [id number]
--- NOTE | 2016-10-06 16:48 | PN ---
Date/Time of Note Date/Time of Note DATE: 10/06/16 TIME: 16:46 Assessment/Plan VTE Prophylaxis VTE Prophylaxis Intervention: SCD's Lines/Catheters IV Catheter Type (from Nrsg): Peripheral IV Urinary Cath still in place: Yes Reason Cath still needed: urinary retention Assessment/Plan Assessment/Plan 1. Clostridium difficile colitis. Continue Flagyl and contact isolation. 2. Metastatic prostate cancer. - per Dr. Hernandez in oncology consultation. Continue chemotherapy and steroids. 3. Thrombocytopenia. Continue to monitor platelets.Hold Lovenox until clarified with Hem/Onc. 4. Acute on chronic back pain. - per Dr. Ferguson in pain management. Continue methadone and Dilaudid p.r.n. for breakthrough pain.. 5. Anemia- sp 2 units PRBC 6. MRSA UTI, cont Vanco, Dr Schuler for ID consult. Continue Protonix for peptic ulcer disease prophylaxis. Further recommendations based on clinical course. Plan of care discussed with Dr. Nichols. Exam/Review of Systems Vital Signs Vitals Vital Signs Date Time Temp Pulse Resp B/P Pulse Ox O2 Delivery O2 Flow Rate FiO2 10/06/16 08:54 98.2 82 18 109/82 97 Intake and Output 10/05/16 10/05/16 10/06/16 14:59 22:59 06:59 Intake Total 250 ml 1380 ml 1450 ml Output Total 2200 ml 2300 ml Balance 250 ml -820 ml -850 ml Exam Constitutional: alert, oriented Psych: nl mood/affect Head: atraumatic Eyes: EOMI ENMT: nl external ears & nose Neck: non-tender Respiratory: clear to auscultation Cardiovascular: nl pulses Gastrointestinal: non-tender, soft Musculoskeletal: nl extremities to inspection Extremities: normal pulses 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: nl speech Skin: nl turgor Lymph: nontender Results Result Diagram: 10/06/16 04210/06/16 0420 Results 24 hrs Laboratory Tests Test 10/06/16 04:20 Alanine Aminotransferase (ALT/SGPT) 24 Albumin 2.4 L Albumin/Globulin Ratio 0.77 Alkaline Phosphatase 1048 H Anion Gap 13 Anisocytosis 1+ Aspartate Amino Transf (AST/SGOT) 32 Band Neutrophils % 30.0 H Blood Morphology Comment Blood Urea Nitrogen 5 L Calcium Level 7.6 L Carbon Dioxide Level 22 Chloride Level 104 Creatinine 0.34 L Differential Comment AUTO DIFF Direct Bilirubin 0.00 Globulin 3.10 Glucose Level 91 Hematocrit 30.6 L Hemoglobin 10.4 L Hypochromasia 1+ Indirect Bilirubin 0.2 Lymphocytes # 0.5 L Lymphocytes % 25.0 Mean Corpuscular Hemoglobin 29.0 Mean Corpuscular Hemoglobin Concent 34.2 Mean Corpuscular Volume 84.8 Mean Platelet Volume 8.7 Monocytes # 0.1 L Monocytes % 4.0 Neutrophils # 0.8 L Neutrophils % 41.0 Platelet Count 52 L Potassium Level 4.2 Red Blood Count 3.61 L Red Cell Distribution Width 15.9 H Sodium Level 135 Total Bilirubin 0.2 Total Protein 5.5 L White Blood Count 1.9 L Medications Medications Current Medications Bicalutamide (Casodex) 50 mg QAM PO Last administered on 10/06/16 09:32; Admin Dose 50 MG; Start 09/07/16 at 09:00 Docusate Sodium (Colace) 100 mg BID PRN PO CONSTIPATION Last administered on 05:22; Admin Dose 100 MG; Start 09/07/16 at 00:00 Escitalopram Oxalate (Lexapro) 5 mg DAILY PO Last administered on 10/06/16 09: 20; Admin Dose 5 MG; Start 09/07/16 at 09:00 Megestrol Acetate (Megace Susp) 400 mg BID PO Last administered on 10/06/16 09 :18; Admin Dose 400 MG; Start 09/07/16 at 09:00 Methylnaltrexone [place] (Relistor) 12 mg Q48H SC Last administered on 00:25; Admin Dose 12 MG; Start 09/07/16 at 00:00 Ondansetron HCl (Zofran Tab) 4 mg Q6H PRN PO NAUSEA AND/OR VOMITING Last administered on 10/05/16 19:46; Admin Dose 4 MG; Start 09/07/16 at 00:00 Acetaminophen (Tylenol Tab) 500 mg Q4H PRN PO PAIN AND OR ELEVATED TEMP Last administered on 10/05/16 15:37; Admin Dose 500 MG; Start 09/07/16 at 21:30 IV Flush (NS 10 ml) 10 ml PRN PRN IV IV PROTOCOL; Start 09/11/16 at 10:00 Calcium/Vitamin D (Oyster Shell/ Vit-D (500/200)) 1 tab BID PO Last administered on 10/06/16 09:20; Admin Dose 1 TAB; Start 09/12/16 at 14:00 IV Flush (NS 10 ml) 10 ml PRN PRN IV IV PROTOCOL; Start 09/21/16 at 12:00 Metronidazole (Flagyl) 500 mg QID PO Last administered on 10/06/16 12:26; Admin Dose 500 MG; Start 09/22/16 at 13:00 Methadone HCl (Methadone Liq (Ped)) 2 mg Q6 PO Last administered on 10/06/16 12:26; Admin Dose 2 MG; Start 09/23/16 at 18:00 Hydromorphone HCl 1 mg 1 mg Q3H PRN IV PAIN Last administered on 10/06/16 13: 15; Admin Dose 1 MG; Start 09/24/16 at 10:00 Potassium Chloride/Sodium Chloride 1,000 ml @ 70 mls/hr [id number] IV Last administered on 10/05/16 19:48; Admin Dose 70 MLS/HR; Start 09/28/16 at 16:30 Ondansetron HCl/ Sodium Chloride (Zofran Inj/NS) 54 ml @ 216 mls/hr Q12H PRN IV NAUSEA AND/OR VOMITING; Start 09/29/16 at 22:00 Prednisone 5 mg 5 mg BID PO Last administered on 10/06/16 09:20; Admin Dose 5 MG; Start 09/29/16 at 21:00 Docetaxel 45 mg/ Sodium Chloride 100 ml @ 100 mls/hr Th@22 IV ; Start 10/06/16 at 22:00; Stop 10/27/16 at 22:59 Ondansetron HCl 16 mg/ Dexamethasone 8 mg/Dextrose 60 ml @ 252 mls/hr Th@2130 IV ; Start 10/06/16 at 21:30; Stop 10/27/16 at 21:45 Vancomycin HCl (Vancocin) 250 ml @ 125 mls/hr Q8H IVPB Last administered on 09:18; Admin Dose 125 MLS/HR; Start 10/05/16 at 01:00 KENDAL BELLO Oct 06, 2016 16:48
[2016-10-06 20:12] VITALS: BP 107/66; RESP 20
[2016-10-06] MEDS: NS + KCL 20 MEQ 1,000 ML IV SCH (20:31)
[2016-10-06] MEDS: ONDANSETRON IV SCH (21:31)
[2016-10-06] MEDS: DEXTROSE 5% IV SCH (21:31)
[2016-10-06] MEDS: DEXAMETHASONE IV SCH (21:31)
[2016-10-06] MEDS: DOCETAXEL IV SCH (22:24)
[2016-10-06] MEDS: SOD CHLORIDE 0.9% IV SCH (22:24)
[2016-10-06 22:31] VITALS: BP 105/68; PULSE 83; RESP 18
[2016-10-06 22:46] VITALS: BP 109/69; PULSE 83; RESP 18
[2016-10-06 23:15] VITALS: BP 106/67; PULSE 82; RESP 18
[2016-10-06 23:55] VITALS: BP 108/70; PULSE 78; RESP 18
[2016-10-07] MEDS: METHADONE (1 MG/1 ML PO SYG) PO SCH ×4 (00:25→18:00)
[2016-10-07] MEDS: METHYLNALTREXONE 12 MG/0.6 ML VIAL SC SCH (00:27)
[2016-10-07] MEDS: VANCOMYCIN 1 GM in NS 250 ML IVPB SCH ×3 (00:27→16:08)
[2016-10-07] MEDS: HYDROmorphONE 1 MG/ML SYG IV PRN (00:56)
[2016-10-07] MEDS ORDERED: BISACODYL 10 MG SUPP PR PRN (03:00)
[2016-10-07] MEDS: SENNA TAB PO SCH ×3 (03:07→20:26)
[2016-10-07] MEDS: HYDROmorphONE 2 MG/ML SYG IV PRN ×6 (03:08→21:42)
[2016-10-07 05:34] LABS: BASOPHILS % 0.2 % (0.0-2.0); EOSINOPHILS % 0.1 % (0.0-7.0); HEMATOCRIT 29.2 % (42.0-52.0); HEMOGLOBIN 10.1 g/dl (14.0-18.0); LYMPHOCYTES # 0.7 10^3/ul (0.8-2.9); LYMPHOCYTES % 24.7 % (15.0-51.0); MEAN CORPUSCULAR HEMOGLOBIN 29.1 pg (29.0-33.0); MEAN CORPUSCULAR HGB CONC 34.5 g/dl (32.0-37.0); MEAN CORPUSCULAR VOLUME 84.3 fl (82.0-101.0); MEAN PLATELET VOLUME 8.7 fl (7.4-10.4); MONOCYTE # 0.2 10^3/ul (0.3-0.9); MONOCYTES % 8.5 % (0.0-11.0); NEUTROPHIL # 1.9 10^3/ul (1.6-7.5); NEUTROPHILS % 66.5 % (39.0-77.0); PLATELET COUNT 61 10^3/UL (140-440); RED BLOOD COUNT 3.46 10^6/ul (4.70-6.10); RED CELL DISTRIBUTION WIDTH 15.5 % (11.5-14.5); UNCORRECTED WBC 2.8 10^3/ul (4.8-10.8); WHITE BLOOD COUNT 2.8 10^3/ul (4.8-10.8)
[2016-10-07 05:58] LABS: ALBUMIN 2.5 g/dl (3.3-4.9); POTASSIUM 4.3 mmol/L (3.5-5.1)
[2016-10-07 06:00] LABS: BILIRUBIN,INDIRECT 0.3 mg/dl (0-1.1); BILIRUBIN,TOTAL 0.3 mg/dl (0.2-1.3); CREATININE 0.33 mg/dl (0.61-1.24)
[2016-10-07 06:01] LABS: ALBUMIN/GLOBULIN RATIO 0.86; CALCIUM 7.2 mg/dl (8.4-10.2); TOTAL PROTEIN 5.4 g/dl (6.1-8.1)
[2016-10-07] MEDS: PANTOPRAZOLE (EC) 40 MG TAB PO SCH (06:13)
[2016-10-07 06:31] LABS: CONDITION 1; LH ANALYZER COMMENTS 1; SUSPECT 1
[2016-10-07 07:00] VITALS: BP 103/71; RESP 19
[2016-10-07] MEDS: CALCIUM/VITAMIN D (500/200) TAB PO SCH ×2 (08:31→20:25)
[2016-10-07] MEDS: MEGESTROL (40 MG/ML) 10ML CUP PO SCH ×2 (08:31→20:25)
[2016-10-07] MEDS: predniSONE 5 MG TAB PO SCH ×2 (08:31→20:26)
[2016-10-07] MEDS: ESCITALOPRAM 10 MG TAB PO SCH (08:31)
[2016-10-07] MEDS: BICALUTAMIDE 50 MG TAB PO SCH (08:33)
[2016-10-07] MEDS: metroNIDAZOLE 500 MG TAB PO SCH ×4 (09:41→20:25)
--- NOTE | 2016-10-07 12:21 | PN ---
DATE: 10/07/2016 INFECTIOUS DISEASE PROGRESS NOTE SUBJECTIVE: No acute events. The patient is lying comfortably in bed. No fevers, no diarrhea. LABORATORY DATA: WBC today 2.8, platelets 61, no bands. BUN 6, creatinine 0.83. ANTIMICROBIALS: 1. IV vancomycin. 2. Flagyl. INDWELLINGS: PICC line. PHYSICAL EXAMINATION: GENERAL: Cachectic elderly man who is awake, in no distress. HEENT: Head atraumatic, normocephalic. Sclerae anicteric. Buccal mucosa dry. NECK: Supple, trachea midline. CHEST: Rise symmetrical. Breath sounds diminished to bases. HEART: S1, S2. ABDOMEN: Soft, bowel sounds present. EXTREMITIES: Without cyanosis. ASSESSMENT: 1. Methicillin-resistant Staphylococcus aureus urinary tract infection. 2. Resolving Clostridium difficile colitis. 3. Metastatic prostate carcinoma. 4. Pancytopenia. 5. Severe deconditioning. PLAN: The patient remains stable, covered with appropriate antimicrobials. Oncology follows. Dictated By: EUNICE GUNTER LITHOGRAPHIC PHOTOGRAPHER APPRENTICE for PINO MULLINS/ADRIANA Conf#: [id number] DID#: [id number]
--- NOTE | 2016-10-07 12:40 | CONS ---
Date/Time of Note Date/Time of Note DATE: 10/07/16 TIME: 12:40 Assessment/Plan Assessment/Plan Chief Complaint/Hosp Course Metastatic prostate cancer. POS CHEMO # 1 chemotherapy and steroids - PER PROTOCOL Chemotherapy Docetaxel (Taxotere) 30 mg/m2 IV over 30 minutes once per day on days 1, 8, 15, 22, 29 Prednisone (Sterapred) 5 mg PO BID on days 1 to 42 Supportive medications Dexamethasone (Decadron) 8 mg (route not specified) once 1 hour before Docetaxel (Taxotere) Antiemetics "according to local practice" 42-day cycle for up to 5 cycles ANEMIA POST PRBC MONITOR CLOSELY OBSERVE FOR BLEEDING AND HEMOLYSIS Thrombocytopenia. Continue to monitor platelets. PANCYTOPENIA MONITOR DECONDITIONING PT Acute on chronic back pain. Dr. Ferguson is following the patient in pain management. Continue methadone and Dilaudid p.r.n. for breakthrough pain. Clostridium difficile colitis. Continue Flagyl and contact isolation. Problems: Consultation Date/Type/Reason Admit Date/Time Sep 06, 2016 at 22:01 Initial Consult Date 09/08/16 Type of Consultation: Hematology/Oncology Referring Provider: TIMOTHY MARAVILLA MD 24 HR Interval Summary Free Text/Dictation ALL NOTED POST CHEMO COUNT REVIEWED NO N/V/ PAIN CONTROLLED Exam/Review of Systems Vital Signs Vitals Vital Signs Date Time Temp Pulse Resp B/P Pulse Ox O2 Delivery O2 Flow Rate FiO2 10/07/16 07:00 98.9 81 19 103/71 97 10/06/16 23:55 Room Air Intake and Output 10/06/16 10/06/16 10/07/16 15:00 23:00 07:00 Intake Total 360 ml 1590 ml Output Total 1800 ml 2000 ml Balance -1440 ml -410 ml Exam Constitutional: alert, oriented Psych: nl mood/affect Head: normocephalic Eyes: EOMI, nl conjunctiva ENMT: nl external ears & nose Neck: non-tender Respiratory: clear to auscultation Cardiovascular: nl pulses Gastrointestinal: soft, tender (diffuse tenderness ) Extremities: normal pulses 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: nl speech Skin: nl turgor Lymph: nontender Results Result Diagram: 10/07/16 0415 10/07/16 0415 Results 24 hrs Laboratory Tests Test 10/07/16 04:15 Alanine Aminotransferase (ALT/SGPT) 23 Albumin 2.5 L Albumin/Globulin Ratio 0.86 Alkaline Phosphatase 1096 H Anion Gap 12 Aspartate Amino Transf (AST/SGOT) 32 Basophils # 0.0 Basophils % 0.2 Blood Morphology Comment Blood Urea Nitrogen 6 L Calcium Level 7.2 L Carbon Dioxide Level 24 Chloride Level 102 Creatinine 0.33 L Direct Bilirubin 0.00 Eosinophils # 0.0 Eosinophils % 0.1 Globulin 2.90 Glucose Level 117 Hematocrit 29.2 L Hemoglobin 10.1 L Indirect Bilirubin 0.3 Lymphocytes # 0.7 L Lymphocytes % 24.7 Mean Corpuscular Hemoglobin 29.1 Mean Corpuscular Hemoglobin Concent 34.5 Mean Corpuscular Volume 84.3 Mean Platelet Volume 8.7 Monocytes # 0.2 L Monocytes % 8.5 Neutrophils # 1.9 Neutrophils % 66.5 Nucleated Red Blood Cells # 0.0 Nucleated Red Blood Cells % 0.0 Platelet Count 61 L Potassium Level 4.3 Red Blood Count 3.46 L Red Cell Distribution Width 15.5 H Sodium Level 134 L Total Bilirubin 0.3 Total Protein 5.4 L White Blood Count 2.8 #L Medications Medications Current Medications Bicalutamide (Casodex) 50 mg QAM PO Last administered on 10/07/16 08:33; Admin Dose 50 MG; Start 09/07/16 at 09:00 Docusate Sodium (Colace) 100 mg BID PRN PO CONSTIPATION Last administered on 05:22; Admin Dose 100 MG; Start 09/07/16 at 00:00 Escitalopram Oxalate (Lexapro) 5 mg DAILY PO Last administered on 10/07/16 08: 31; Admin Dose 5 MG; Start 09/07/16 at 09:00 Megestrol Acetate (Megace Susp) 400 mg BID PO Last administered on 10/07/16 08 :31; Admin Dose 400 MG; Start 09/07/16 at 09:00 Methylnaltrexone [place] (Relistor) 12 mg Q48H SC Last administered on 00:27; Admin Dose 12 MG; Start 09/07/16 at 00:00 Ondansetron HCl (Zofran Tab) 4 mg Q6H PRN PO NAUSEA AND/OR VOMITING Last administered on 10/05/16 19:46; Admin Dose 4 MG; Start 09/07/16 at 00:00 Acetaminophen (Tylenol Tab) 500 mg Q4H PRN PO PAIN AND OR ELEVATED TEMP Last administered on 10/05/16 15:37; Admin Dose 500 MG; Start 09/07/16 at 21:30 IV Flush (NS 10 ml) 10 ml PRN PRN IV IV PROTOCOL; Start 09/11/16 at 10:00 Calcium/Vitamin D (Oyster Shell/ Vit-D (500/200)) 1 tab BID PO Last administered on 10/07/16 08:31; Admin Dose 1 TAB; Start 09/12/16 at 14:00 IV Flush (NS 10 ml) 10 ml PRN PRN IV IV PROTOCOL; Start 09/21/16 at 12:00 Metronidazole (Flagyl) 500 mg QID PO Last administered on 10/07/16 09:41; Admin Dose 500 MG; Start 09/22/16 at 13:00 Methadone HCl 2 mg 2 mg Q6 PO Last administered on 10/07/16 11:24; Admin Dose 2 MG; Start 09/23/16 at 18:00 Potassium Chloride/Sodium Chloride 1,000 ml @ 70 mls/hr [id number] IV Last administered on 10/06/16 20:31; Admin Dose 70 MLS/HR; Start 09/28/16 at 16:30 Ondansetron HCl/ Sodium Chloride (Zofran Inj/NS) 54 ml @ 216 mls/hr Q12H PRN IV NAUSEA AND/OR VOMITING; Start 09/29/16 at 22:00 Prednisone 5 mg 5 mg BID PO Last administered on 10/07/16 08:31; Admin Dose 5 MG; Start 09/29/16 at 21:00 Docetaxel 45 mg/ Sodium Chloride 100 ml @ 100 mls/hr Th@22 IV Last administered on 10/06/16 22:24; Admin Dose 100 MLS/HR; Start 10/06/16 at 22:00 ; Stop 10/27/16 at 22:59 Ondansetron HCl 16 mg/ Dexamethasone 8 mg/Dextrose 60 ml @ 252 mls/hr Th@2130 IV Last administered on 10/06/16 21:31; Admin Dose 252 MLS/HR; Start 10/06/16 at 21:30; Stop 10/27/16 at 21:45 Vancomycin HCl (Vancocin) 250 ml @ 125 mls/hr Q8H IVPB Last administered on 09:42; Admin Dose 125 MLS/HR; Start 10/05/16 at 01:00 Hydromorphone HCl (Dilaudid) 1.5 mg Q3H PRN IV PAIN Last administered on 11:50; Admin Dose 1.5 MG; Start 10/07/16 at 03:00 Senna (Senokot) 2 tab BID PO Last administered on 10/07/16 08:31; Admin Dose 2 TAB; Start 10/07/16 at 03:00 Bisacodyl (Dulcolax Supp) 10 mg DAILY PRN [place] CONSTIPATION Last administered on 10/07/16 03:07; Admin Dose 10 MG; Start 10/07/16 at 03:00 JARAD CHOI MD Oct 07, 2016 12:40
--- NOTE | 2016-10-07 15:11 | PN ---
Date/Time of Note Date/Time of Note DATE: 10/07/16 TIME: 15:10 Assessment/Plan VTE Prophylaxis VTE Prophylaxis Intervention: other Lines/Catheters IV Catheter Type (from Nrsg): PICC Line Central line still needed: Yes Urinary Cath still in place: Yes Reason Cath still needed: skin wounds contaminated by urine Assessment/Plan Chief Complaint/Hosp Course 1) Hypotension - stable 2) Dehydration - IV fluids 3) Anemia - monitor H/H 4) Intractable pain - pain control 5) Prostate carcinoma - sp Radiation therapy by Dr Ghassan Hylton - oncology consult appreciated- Dr Silva 6) Thrombocytopenia - monitor 7) C. diff colitis - flagyl 500mg IV q6hr Patient and family may be ready for hospice Problems: Subjective 24 Hr Interval Summary Free Text/Dictation Patient has no complaints Exam/Review of Systems Vital Signs Vitals Vital Signs Date Time Temp Pulse Resp B/P Pulse Ox O2 Delivery O2 Flow Rate FiO2 10/07/16 07:00 98.9 81 19 103/71 97 10/06/16 23:55 Room Air Intake and Output 10/06/16 10/06/16 10/07/16 15:00 23:00 07:00 Intake Total 360 ml 1590 ml Output Total 1800 ml 2000 ml Balance -1440 ml -410 ml Exam Head: atraumatic, normocephalic Neck: supple Respiratory: clear to auscultation Cardiovascular: regular rate and rhythm Gastrointestinal: non-tender, soft Extremities: normal pulses Results Result Diagram: 10/07/16 0415 10/07/16 0415 Results 24 hrs Laboratory Tests Test 10/07/16 04:15 Alanine Aminotransferase (ALT/SGPT) 23 Albumin 2.5 L Albumin/Globulin Ratio 0.86 Alkaline Phosphatase 1096 H Anion Gap 12 Aspartate Amino Transf (AST/SGOT) 32 Basophils # 0.0 Basophils % 0.2 Blood Morphology Comment Blood Urea Nitrogen 6 L Calcium Level 7.2 L Carbon Dioxide Level 24 Chloride Level 102 Creatinine 0.33 L Direct Bilirubin 0.00 Eosinophils # 0.0 Eosinophils % 0.1 Globulin 2.90 Glucose Level 117 Hematocrit 29.2 L Hemoglobin 10.1 L Indirect Bilirubin 0.3 Lymphocytes # 0.7 L Lymphocytes % 24.7 Mean Corpuscular Hemoglobin 29.1 Mean Corpuscular Hemoglobin Concent 34.5 Mean Corpuscular Volume 84.3 Mean Platelet Volume 8.7 Monocytes # 0.2 L Monocytes % 8.5 Neutrophils # 1.9 Neutrophils % 66.5 Nucleated Red Blood Cells # 0.0 Nucleated Red Blood Cells % 0.0 Platelet Count 61 L Potassium Level 4.3 Red Blood Count 3.46 L Red Cell Distribution Width 15.5 H Sodium Level 134 L Total Bilirubin 0.3 Total Protein 5.4 L White Blood Count 2.8 #L Medications Medications Current Medications Bicalutamide (Casodex) 50 mg QAM PO Last administered on 10/07/16 08:33; Admin Dose 50 MG; Start 09/07/16 at 09:00 Docusate Sodium (Colace) 100 mg BID PRN PO CONSTIPATION Last administered on 05:22; Admin Dose 100 MG; Start 09/07/16 at 00:00 Escitalopram Oxalate (Lexapro) 5 mg DAILY PO Last administered on 10/07/16 08: 31; Admin Dose 5 MG; Start 09/07/16 at 09:00 Megestrol Acetate (Megace Susp) 400 mg BID PO Last administered on 10/07/16 08 :31; Admin Dose 400 MG; Start 09/07/16 at 09:00 Methylnaltrexone [place] (Relistor) 12 mg Q48H SC Last administered on 00:27; Admin Dose 12 MG; Start 09/07/16 at 00:00 Ondansetron HCl (Zofran Tab) 4 mg Q6H PRN PO NAUSEA AND/OR VOMITING Last administered on 10/05/16 19:46; Admin Dose 4 MG; Start 09/07/16 at 00:00 Acetaminophen (Tylenol Tab) 500 mg Q4H PRN PO PAIN AND OR ELEVATED TEMP Last administered on 10/05/16 15:37; Admin Dose 500 MG; Start 09/07/16 at 21:30 IV Flush (NS 10 ml) 10 ml PRN PRN IV IV PROTOCOL; Start 09/11/16 at 10:00 Calcium/Vitamin D (Oyster Shell/ Vit-D (500/200)) 1 tab BID PO Last administered on 10/07/16 08:31; Admin Dose 1 TAB; Start 09/12/16 at 14:00 IV Flush (NS 10 ml) 10 ml PRN PRN IV IV PROTOCOL; Start 09/21/16 at 12:00 Metronidazole (Flagyl) 500 mg QID PO Last administered on 10/07/16 13:35; Admin Dose 500 MG; Start 09/22/16 at 13:00 Methadone HCl 2 mg 2 mg Q6 PO Last administered on 10/07/16 11:24; Admin Dose 2 MG; Start 09/23/16 at 18:00 Potassium Chloride/Sodium Chloride 1,000 ml @ 70 mls/hr [id number] IV Last administered on 10/06/16 20:31; Admin Dose 70 MLS/HR; Start 09/28/16 at 16:30 Ondansetron HCl/ Sodium Chloride (Zofran Inj/NS) 54 ml @ 216 mls/hr Q12H PRN IV NAUSEA AND/OR VOMITING; Start 09/29/16 at 22:00 Prednisone 5 mg 5 mg BID PO Last administered on 10/07/16 08:31; Admin Dose 5 MG; Start 09/29/16 at 21:00 Docetaxel 45 mg/ Sodium Chloride 100 ml @ 100 mls/hr Th@22 IV Last administered on 10/06/16 22:24; Admin Dose 100 MLS/HR; Start 10/06/16 at 22:00 ; Stop 10/27/16 at 22:59 Ondansetron HCl 16 mg/ Dexamethasone 8 mg/Dextrose 60 ml @ 252 mls/hr Th@2130 IV Last administered on 10/06/16 21:31; Admin Dose 252 MLS/HR; Start 10/06/16 at 21:30; Stop 10/27/16 at 21:45 Vancomycin HCl (Vancocin) 250 ml @ 125 mls/hr Q8H IVPB Last administered on 09:42; Admin Dose 125 MLS/HR; Start 10/05/16 at 01:00 Hydromorphone HCl (Dilaudid) 1.5 mg Q3H PRN IV PAIN Last administered on 11:50; Admin Dose 1.5 MG; Start 10/07/16 at 03:00 Senna (Senokot) 2 tab BID PO Last administered on 10/07/16 08:31; Admin Dose 2 TAB; Start 10/07/16 at 03:00 Bisacodyl (Dulcolax Supp) 10 mg DAILY PRN [place] CONSTIPATION Last administered on 10/07/16 03:07; Admin Dose 10 MG; Start 10/07/16 at 03:00 NASREEN DAMON Oct 07, 2016 15:10
[2016-10-07] MEDS: NS + KCL 20 MEQ 1,000 ML IV SCH (15:12)
[2016-10-07 19:58] VITALS: BP 108/71; RESP 18
[2016-10-07] MEDS: ZOLPIDEM 5 MG TAB PO PRN (21:42)
[2016-10-08] MEDS: VANCOMYCIN 1 GM in NS 250 ML IVPB SCH ×2 (00:34→09:36)
[2016-10-08] MEDS: METHADONE (1 MG/1 ML PO SYG) PO SCH ×4 (00:34→17:34)
[2016-10-08] MEDS: HYDROmorphONE 2 MG/ML SYG IV PRN ×5 (01:09→21:41)
[2016-10-08 05:33] LABS: HEMATOCRIT 27.5 % (42.0-52.0); HEMOGLOBIN 9.3 g/dl (14.0-18.0); MEAN CORPUSCULAR HEMOGLOBIN 28.3 pg (29.0-33.0); MEAN CORPUSCULAR HGB CONC 33.8 g/dl (32.0-37.0); MEAN CORPUSCULAR VOLUME 83.9 fl (82.0-101.0); MEAN PLATELET VOLUME 8.7 fl (7.4-10.4); PLATELET COUNT 64 10^3/UL (140-440); RED BLOOD COUNT 3.28 10^6/ul (4.70-6.10); RED CELL DISTRIBUTION WIDTH 16.1 % (11.5-14.5); UNCORRECTED WBC 1.7 10^3/ul (4.8-10.8); WHITE BLOOD COUNT 1.7 10^3/ul (4.8-10.8)
[2016-10-08] MEDS: NS + KCL 20 MEQ 1,000 ML IV SCH ×2 (05:52→21:29)
[2016-10-08 05:58] LABS: CONDITION 1; LH ANALYZER COMMENTS 1; SUSPECT 1
[2016-10-08 06:06] LABS: ALBUMIN 2.4 g/dl (3.3-4.9)
[2016-10-08 06:07] LABS: POTASSIUM 3.9 mmol/L (3.5-5.1)
[2016-10-08 06:09] LABS: BILIRUBIN,INDIRECT 0.2 mg/dl (0-1.1); BILIRUBIN,TOTAL 0.2 mg/dl (0.2-1.3); CREATININE 0.33 mg/dl (0.61-1.24)
[2016-10-08 06:10] LABS: ALBUMIN/GLOBULIN RATIO 0.85; CALCIUM 7.2 mg/dl (8.4-10.2); TOTAL PROTEIN 5.2 g/dl (6.1-8.1)
[2016-10-08 07:00] VITALS: BP 94/62; RESP 19
[2016-10-08 07:37] LABS: LYMPHOCYTES # 0.8 10^3/ul (0.8-2.9); MONOCYTE # 0.3 10^3/ul (0.3-0.9); NEUTROPHIL # 0.5 10^3/ul (1.6-7.5)
[2016-10-08 07:39] LABS: ANISOCYTOSIS 1+
[2016-10-08 07:40] LABS: HYPOCHROMASIA 1+
[2016-10-08] MEDS: SENNA TAB PO SCH ×2 (09:00→21:00)
[2016-10-08] MEDS: CALCIUM/VITAMIN D (500/200) TAB PO SCH ×2 (09:36→21:29)
[2016-10-08] MEDS: predniSONE 5 MG TAB PO SCH ×2 (09:36→21:29)
[2016-10-08] MEDS: metroNIDAZOLE 500 MG TAB PO SCH ×4 (09:36→21:29)
[2016-10-08] MEDS: MEGESTROL (40 MG/ML) 10ML CUP PO SCH ×2 (09:36→21:29)
[2016-10-08] MEDS: ESCITALOPRAM 10 MG TAB PO SCH (09:36)
[2016-10-08] MEDS: PANTOPRAZOLE (EC) 40 MG TAB PO SCH (09:37)
[2016-10-08] MEDS: BICALUTAMIDE 50 MG TAB PO SCH (09:39)
--- NOTE | 2016-10-08 11:27 | PN ---
Date/Time of Note Date/Time of Note DATE: 10/08/16 TIME: 11:26 Assessment/Plan VTE Prophylaxis VTE Prophylaxis Intervention: other Lines/Catheters IV Catheter Type (from Nrsg): PICC Line Central line still needed: Yes Urinary Cath still in place: Yes Reason Cath still needed: skin wounds contaminated by urine Assessment/Plan Chief Complaint/Hosp Course 1) Hypotension - stable 2) Dehydration - IV fluids 3) Anemia - monitor H/H 4) Intractable pain - pain control 5) Prostate carcinoma - sp Radiation therapy by Dr Ghassan Hylton - oncology consult appreciated- Dr Silva 6) Thrombocytopenia - monitor 7) C. diff colitis - flagyl 500mg IV q6hr Patient and family may be ready for hospice Problems: Subjective 24 Hr Interval Summary Free Text/Dictation Patient has no complaints Exam/Review of Systems Vital Signs Vitals Vital Signs Date Time Temp Pulse Resp B/P Pulse Ox O2 Delivery O2 Flow Rate FiO2 10/08/16 07:00 98.8 88 19 94/62 98 10/06/16 23:55 Room Air Intake and Output 10/07/16 10/07/16 10/08/16 15:00 23:00 07:00 Intake Total 250 ml 1690 ml 1250 ml Output Total 1000 ml 1200 ml Balance 250 ml 690 ml 50 ml Exam Head: atraumatic, normocephalic Neck: supple Cardiovascular: regular rate and rhythm Gastrointestinal: non-tender, soft Extremities: normal pulses Results Result Diagram: 10/08/163 10/08/16 0443 Results 24 hrs Laboratory Tests Test 10/08/16 04:43 Alanine Aminotransferase (ALT/SGPT) 29 Albumin 2.4 L Albumin/Globulin Ratio 0.85 Alkaline Phosphatase 946 H Anion Gap 10 Anisocytosis 1+ Aspartate Amino Transf (AST/SGOT) 33 Blood Morphology Comment Blood Urea Nitrogen 6 L Calcium Level 7.2 L Carbon Dioxide Level 25 Chloride Level 104 Creatinine 0.33 L Direct Bilirubin 0.00 Globulin 2.80 Glucose Level 85 Hematocrit 27.5 L Hemoglobin 9.3 L Hypochromasia 1+ Indirect Bilirubin 0.2 Lymphocytes # 0.8 Lymphocytes % 47.0 Mean Corpuscular Hemoglobin 28.3 L Mean Corpuscular Hemoglobin Concent 33.8 Mean Corpuscular Volume 83.9 Mean Platelet Volume 8.7 Monocytes # 0.3 Monocytes % 15.0 H Myelocytes # 0.0 Myelocytes % 2.0 H Neutrophils # 0.5 L Neutrophils % 31.0 L Platelet Count 64 L Potassium Level 3.9 Promyelocytes # 0.1 Promyelocytes % 5.0 H Red Blood Count 3.28 L Red Cell Distribution Width 16.1 H Sodium Level 135 Total Bilirubin 0.2 Total Protein 5.2 L White Blood Count 1.7 #L Medications Medications Current Medications Bicalutamide (Casodex) 50 mg QAM PO Last administered on 10/08/16 09:39; Admin Dose 50 MG; Start 09/07/16 at 09:00 Docusate Sodium (Colace) 100 mg BID PRN PO CONSTIPATION Last administered on 05:22; Admin Dose 100 MG; Start 09/07/16 at 00:00 Escitalopram Oxalate (Lexapro) 5 mg DAILY PO Last administered on 10/08/16 09: 36; Admin Dose 5 MG; Start 09/07/16 at 09:00 Megestrol Acetate (Megace Susp) 400 mg BID PO Last administered on 10/08/16 09 :36; Admin Dose 400 MG; Start 09/07/16 at 09:00 Methylnaltrexone [place] (Relistor) 12 mg Q48H SC Last administered on 00:27; Admin Dose 12 MG; Start 09/07/16 at 00:00 Ondansetron HCl (Zofran Tab) 4 mg Q6H PRN PO NAUSEA AND/OR VOMITING Last administered on 10/05/16 19:46; Admin Dose 4 MG; Start 09/07/16 at 00:00 Acetaminophen (Tylenol Tab) 500 mg Q4H PRN PO PAIN AND OR ELEVATED TEMP Last administered on 10/05/16 15:37; Admin Dose 500 MG; Start 09/07/16 at 21:30 IV Flush (NS 10 ml) 10 ml PRN PRN IV IV PROTOCOL; Start 09/11/16 at 10:00 Calcium/Vitamin D (Oyster Shell/ Vit-D (500/200)) 1 tab BID PO Last administered on 10/08/16 09:36; Admin Dose 1 TAB; Start 09/12/16 at 14:00 IV Flush (NS 10 ml) 10 ml PRN PRN IV IV PROTOCOL; Start 09/21/16 at 12:00 Metronidazole (Flagyl) 500 mg QID PO Last administered on 10/08/16 09:36; Admin Dose 500 MG; Start 09/22/16 at 13:00 Methadone HCl 2 mg 2 mg Q6 PO Last administered on 10/08/16 05:52; Admin Dose 2 MG; Start 09/23/16 at 18:00 Potassium Chloride/Sodium Chloride 1,000 ml @ 70 mls/hr [id number] IV Last administered on 10/08/16 05:52; Admin Dose 70 MLS/HR; Start 09/28/16 at 16:30 Ondansetron HCl/ Sodium Chloride (Zofran Inj/NS) 54 ml @ 216 mls/hr Q12H PRN IV NAUSEA AND/OR VOMITING; Start 09/29/16 at 22:00 Prednisone 5 mg 5 mg BID PO Last administered on 10/08/16 09:36; Admin Dose 5 MG; Start 09/29/16 at 21:00 Docetaxel 45 mg/ Sodium Chloride 100 ml @ 100 mls/hr Th@22 IV Last administered on 10/06/16 22:24; Admin Dose 100 MLS/HR; Start 10/06/16 at 22:00 ; Stop 10/27/16 at 22:59 Ondansetron HCl 16 mg/ Dexamethasone 8 mg/Dextrose 60 ml @ 252 mls/hr Th@2130 IV Last administered on 10/06/16 21:31; Admin Dose 252 MLS/HR; Start 10/06/16 at 21:30; Stop 10/27/16 at 21:45 Vancomycin HCl (Vancocin) 250 ml @ 125 mls/hr Q8H IVPB Last administered on 09:36; Admin Dose 125 MLS/HR; Start 10/05/16 at 01:00 Hydromorphone HCl (Dilaudid) 1.5 mg Q3H PRN IV PAIN Last administered on 05:52; Admin Dose 1.5 MG; Start 10/07/16 at 03:00 Senna (Senokot) 2 tab BID PO Last administered on 10/07/16 08:31; Admin Dose 2 TAB; Start 10/07/16 at 03:00 Bisacodyl (Dulcolax Supp) 10 mg DAILY PRN [place] CONSTIPATION Last administered on 10/07/16 03:07; Admin Dose 10 MG; Start 10/07/16 at 03:00 NASREEN DAMON Oct 08, 2016 11:27
--- NOTE | 2016-10-08 17:10 | CONS ---
Date/Time of Note Date/Time of Note DATE: 10/08/16 TIME: 17:09 Consult Date/Type/Reason Admit Date/Time Sep 06, 2016 at 22:01 Initial Consult Date 09/08/16 Type of Consultation: id Ordering Provider: TIMOTHY MARAVILLA MD Subjective no events, sleeping, no fevers, nad Objective Vital Signs Date Time Temp Pulse Resp B/P Pulse Ox O2 Delivery O2 Flow Rate FiO2 10/08/16 07:00 98.8 88 19 94/62 98 10/06/16 23:55 Room Air Intake and Output 10/07/16 10/07/16 10/08/16 15:00 23:00 07:00 Intake Total 250 ml 1690 ml 1250 ml Output Total 1000 ml 1200 ml Balance 250 ml 690 ml 50 ml Results/Medications Result Diagram: 10/08/163 10/08/16442 Results 24 hrs Laboratory Tests Test 10/08/16 04:43 10/08/16 15:45 Alanine Aminotransferase (ALT/SGPT) 29 Albumin 2.4 L Albumin/Globulin Ratio 0.85 Alkaline Phosphatase 946 H Anion Gap 10 Anisocytosis 1+ Aspartate Amino Transf (AST/SGOT) 33 Blood Morphology Comment Blood Urea Nitrogen 6 L Calcium Level 7.2 L Carbon Dioxide Level 25 Chloride Level 104 Creatinine 0.33 L Direct Bilirubin 0.00 Globulin 2.80 Glucose Level 85 Hematocrit 27.5 L Hemoglobin 9.3 L Hypochromasia 1+ Indirect Bilirubin 0.2 Lymphocytes # 0.8 Lymphocytes % 47.0 Mean Corpuscular Hemoglobin 28.3 L Mean Corpuscular Hemoglobin Concent 33.8 Mean Corpuscular Volume 83.9 Mean Platelet Volume 8.7 Monocytes # 0.3 Monocytes % 15.0 H Myelocytes # 0.0 Myelocytes % 2.0 H Neutrophils # 0.5 L Neutrophils % 31.0 L Platelet Count 64 L Potassium Level 3.9 Promyelocytes # 0.1 Promyelocytes % 5.0 H Red Blood Count 3.28 L Red Cell Distribution Width 16.1 H Sodium Level 135 Total Bilirubin 0.2 Total Protein 5.2 L White Blood Count 1.7 #L Vancomycin Level Trough 18.2 Medications Current Medications Bicalutamide (Casodex) 50 mg QAM PO Last administered on 10/08/16t 09:39; Admin Dose 50 MG; Start 09/07/16 at 09:00 Docusate Sodium (Colace) 100 mg BID PRN PO CONSTIPATION Last administered on 05:22; Admin Dose 100 MG; Start 09/07/16 at 00:00 Escitalopram Oxalate (Lexapro) 5 mg DAILY PO Last administered on 10/08/16 09: 36; Admin Dose 5 MG; Start 09/07/16 at 09:00 Megestrol Acetate (Megace Susp) 400 mg BID PO Last administered on 10/08/16 09 :36; Admin Dose 400 MG; Start 09/07/16 at 09:00 Methylnaltrexone [place] (Relistor) 12 mg Q48H SC Last administered on 00:27; Admin Dose 12 MG; Start 09/07/16 at 00:00 Ondansetron HCl (Zofran Tab) 4 mg Q6H PRN PO NAUSEA AND/OR VOMITING Last administered on 10/05/16 19:46; Admin Dose 4 MG; Start 09/07/16 at 00:00 Acetaminophen (Tylenol Tab) 500 mg Q4H PRN PO PAIN AND OR ELEVATED TEMP Last administered on 10/05/16 15:37; Admin Dose 500 MG; Start 09/07/16 at 21:30 IV Flush (NS 10 ml) 10 ml PRN PRN IV IV PROTOCOL; Start 09/11/16 at 10:00 Calcium/Vitamin D ([place]yster [place]/ Vit-D (500/200)) 1 tab BID PO Last administered on 10/08/16 09:36; Admin Dose 1 TAB; Start 09/12/16 at 14:00 IV Flush (NS 10 ml) 10 ml PRN PRN IV IV PROTOCOL; Start 09/21/16 at 12:00 Metronidazole (Flagyl) 500 mg QID PO Last administered on 10/08/16 16:44; Admin Dose 500 MG; Start 09/22/16 at 13:00 Methadone HCl 2 mg 2 mg Q6 PO Last administered on 10/08/16 12:38; Admin Dose 2 MG; Start 09/23/16 at 18:00 Potassium Chloride/Sodium Chloride 1,000 ml @ 70 mls/hr [id number] IV Last administered on 10/08/16 05:52; Admin Dose 70 MLS/HR; Start 09/28/16 at 16:30 Ondansetron HCl/ Sodium Chloride (Zofran Inj/NS) 54 ml @ 216 mls/hr Q12H PRN IV NAUSEA AND/OR VOMITING; Start 09/29/16 at 22:00 Prednisone 5 mg 5 mg BID PO Last administered on 10/08/16 09:36; Admin Dose 5 MG; Start 09/29/16 at 21:00 Docetaxel 45 mg/ Sodium Chloride 100 ml @ 100 mls/hr Th@22 IV Last administered on 10/06/16 22:24; Admin Dose 100 MLS/HR; Start 10/06/16 at 22:00 ; Stop 10/27/16 at 22:59 Ondansetron HCl/ Dexamethasone/ Dextrose (Zofran Inj/ Decadron/D5W) 60 ml @ 252 mls/hr Th@2130 IV Last administered on 10/06/16 21:31; Admin Dose 252 MLS/ HR; Start 10/06/16 at 21:30; Stop 10/27/16 at 21:45 Hydromorphone HCl (Dilaudid) 1.5 mg Q3H PRN IV PAIN Last administered on 16:43; Admin Dose 1.5 MG; Start 10/07/16 at 03:00 Senna (Senokot) 2 tab BID PO Last administered on 10/07/16 08:31; Admin Dose 2 TAB; Start 10/07/16 at 03:00 Bisacodyl 10 mg 10 mg DAILY PRN [place] CONSTIPATION Last administered on 10/07/16 03:07; Admin Dose 10 MG; Start 10/07/16 at 03:00 Vancomycin HCl/ Sodium Chloride (Vancocin/NS) 150 ml @ 75 mls/hr Q8H IVPB ; Start 10/08/16 at 19:00 Assessment/Plan Chief Complaint/Hosp Course ANTIMICROBIALS: 1. IV vancomycin. 2. Flagyl. INDWELLINGS: PICC line. PHYSICAL EXAMINATION: GENERAL: Cachectic elderly man who is in no distress. HEENT: Head atraumatic, normocephalic. Sclerae anicteric. Buccal mucosa dry. NECK: Supple, trachea midline. CHEST: Rise symmetrical. Breath sounds diminished to bases. HEART: S1, S2. ABDOMEN: Soft, bowel sounds present. EXTREMITIES: Without cyanosis. ASSESSMENT: 1. Methicillin-resistant Staphylococcus aureus urinary tract infection. 2. Resolving Clostridium difficile colitis. 3. Metastatic prostate carcinoma. 4. Pancytopenia. 5. Severe deconditioning. PLAN: The patient remains stable, covered with appropriate antimicrobials. Oncology follows. DW staff Problems: EUNICE GUNTER NP Oct 08, 2016 17:10
[2016-10-08] MEDS: VANCOMYCIN 750 MG in SOD CHLORIDE 0.9% 150 ML IVPB SCH (18:31)
[2016-10-08 20:09] VITALS: BP 101/63; RESP 21
--- NOTE | 2016-10-08 22:06 | CONS ---
Date/Time of Note Date/Time of Note DATE: 10/08/16 TIME: 22:03 Assessment/Plan Assessment/Plan Chief Complaint/Hosp Course Metastatic prostate cancer. POS CHEMO # 2 chemotherapy and steroids - PER PROTOCOL Chemotherapy Docetaxel (Taxotere) 30 mg/m2 IV over 30 minutes once per day on days 1, 8, 15, 22, 29 Prednisone (Sterapred) 5 mg PO BID on days 1 to 42 Supportive medications Dexamethasone (Decadron) 8 mg (route not specified) once 1 hour before Docetaxel (Taxotere) Antiemetics "according to local practice" 42-day cycle for up to 5 cycles ANEMIA POST PRBC MONITOR CLOSELY OBSERVE FOR BLEEDING AND HEMOLYSIS Thrombocytopenia. Continue to monitor platelets. transfuse as needed PANCYTOPENIA MONITOR DECONDITIONING PT Acute on chronic back pain. Dr. Ferguson is following the patient in pain management. Continue methadone and Dilaudid p.r.n. for breakthrough pain. Clostridium difficile colitis. Continue Flagyl and contact isolation- per ID Problems: Consultation Date/Type/Reason Admit Date/Time Sep 06, 2016 at 22:01 Initial Consult Date 09/08/16 Type of Consultation: hemeon Referring Provider: TIMOTHY MARAVILLA MD 24 HR Interval Summary Free Text/Dictation all noted post 2 chemo count noted Exam/Review of Systems Vital Signs Vitals Vital Signs Date Time Temp Pulse Resp B/P Pulse Ox O2 Delivery O2 Flow Rate FiO2 10/08/16 20:09 98.3 89 21 101/63 100 10/06/16 23:55 Room Air Intake and Output 10/07/16 10/07/16 10/08/16 15:00 23:00 07:00 Intake Total 250 ml 1690 ml 1250 ml Output Total 1000 ml 1200 ml Balance 250 ml 690 ml 50 ml Exam GENERAL: Well-developed, cachectic male, currently is awake, alert. HEENT: Head is atraumatic, normocephalic. PERRLA. NECK: Supple. No mass, no thyromegaly. LUNGS: Clear bilaterally. No rhonchi, wheezes, rales noted. HEART: Normal S1, S2. No murmurs, gallops, clicks, rubs noted. ABDOMEN: Flat, soft, nondistended, nontender. Bowel sounds present. EXTREMITIES: No edema. SKIN: There is no rash, petechiae noted. NEUROLOGIC: The patient is awake, alert, and oriented x3. Results Result Diagram: 10/08/16 0443 10/08/16 0443 Results 24 hrs Laboratory Tests Test 10/08/16 04:43 10/08/16 15:45 Alanine Aminotransferase (ALT/SGPT) 29 Albumin 2.4 L Albumin/Globulin Ratio 0.85 Alkaline Phosphatase 946 H Anion Gap 10 Anisocytosis 1+ Aspartate Amino Transf (AST/SGOT) 33 Blood Morphology Comment Blood Urea Nitrogen 6 L Calcium Level 7.2 L Carbon Dioxide Level 25 Chloride Level 104 Creatinine 0.33 L Direct Bilirubin 0.00 Globulin 2.80 Glucose Level 85 Hematocrit 27.5 L Hemoglobin 9.3 L Hypochromasia 1+ Indirect Bilirubin 0.2 Lymphocytes # 0.8 Lymphocytes % 47.0 Mean Corpuscular Hemoglobin 28.3 L Mean Corpuscular Hemoglobin Concent 33.8 Mean Corpuscular Volume 83.9 Mean Platelet Volume 8.7 Monocytes # 0.3 Monocytes % 15.0 H Myelocytes # 0.0 Myelocytes % 2.0 H Neutrophils # 0.5 L Neutrophils % 31.0 L Platelet Count 64 L Potassium Level 3.9 Promyelocytes # 0.1 Promyelocytes % 5.0 H Red Blood Count 3.28 L Red Cell Distribution Width 16.1 H Sodium Level 135 Total Bilirubin 0.2 Total Protein 5.2 L White Blood Count 1.7 #L Vancomycin Level Trough 18.2 Medications Medications Current Medications Bicalutamide (Casodex) 50 mg QAM PO Last administered on 10/08/16 09:39; Admin Dose 50 MG; Start 09/07/16 at 09:00 Docusate Sodium (Colace) 100 mg BID PRN PO CONSTIPATION Last administered on 05:22; Admin Dose 100 MG; Start 09/07/16 at 00:00 Escitalopram Oxalate (Lexapro) 5 mg DAILY PO Last administered on 10/08/16 09: 36; Admin Dose 5 MG; Start 09/07/16 at 09:00 Megestrol Acetate (Megace Susp) 400 mg BID PO Last administered on 10/08/16 21 :29; Admin Dose 400 MG; Start 09/07/16 at 09:00 Methylnaltrexone [place] (Relistor) 12 mg Q48H SC Last administered on 00:27; Admin Dose 12 MG; Start 09/07/16 at 00:00 Ondansetron HCl (Zofran Tab) 4 mg Q6H PRN PO NAUSEA AND/OR VOMITING Last administered on 10/05/16 19:46; Admin Dose 4 MG; Start 09/07/16 at 00:00 Acetaminophen (Tylenol Tab) 500 mg Q4H PRN PO PAIN AND OR ELEVATED TEMP Last administered on 10/05/16 15:37; Admin Dose 500 MG; Start 09/07/16 at 21:30 IV Flush (NS 10 ml) 10 ml PRN PRN IV IV PROTOCOL; Start 09/11/16 at 10:00 Calcium/Vitamin D (Oyster Shell/ Vit-D (500/200)) 1 tab BID PO Last administered on 10/08/16 21:29; Admin Dose 1 TAB; Start 09/12/16 at 14:00 IV Flush (NS 10 ml) 10 ml PRN PRN IV IV PROTOCOL; Start 09/21/16 at 12:00 Metronidazole (Flagyl) 500 mg QID PO Last administered on 10/08/16 21:29; Admin Dose 500 MG; Start 09/22/16 at 13:00 Methadone HCl 2 mg 2 mg Q6 PO Last administered on 10/08/16 17:34; Admin Dose 2 MG; Start 09/23/16 at 18:00 Potassium Chloride/Sodium Chloride 1,000 ml @ 70 mls/hr [id number] IV Last administered on 10/08/16 21:29; Admin Dose 70 MLS/HR; Start 09/28/16 at 16:30 Ondansetron HCl/ Sodium Chloride (Zofran Inj/NS) 54 ml @ 216 mls/hr Q12H PRN IV NAUSEA AND/OR VOMITING; Start 09/29/16 at 22:00 Prednisone 5 mg 5 mg BID PO Last administered on 10/08/16 21:29; Admin Dose 5 MG; Start 09/29/16 at 21:00 Docetaxel 45 mg/ Sodium Chloride 100 ml @ 100 mls/hr Th@22 IV Last administered on 10/06/16 22:24; Admin Dose 100 MLS/HR; Start 10/06/16 at 22:00 ; Stop 10/27/16 at 22:59 Ondansetron HCl/ Dexamethasone/ Dextrose (Zofran Inj/ Decadron/D5W) 60 ml @ 252 mls/hr Th@2130 IV Last administered on 10/06/16 21:31; Admin Dose 252 MLS/ HR; Start 10/06/16 at 21:30; Stop 10/27/16 at 21:45 Hydromorphone HCl (Dilaudid) 1.5 mg Q3H PRN IV PAIN Last administered on 21:41; Admin Dose 1.5 MG; Start 10/07/16 at 03:00 Senna (Senokot) 2 tab BID PO Last administered on 10/07/16 08:31; Admin Dose 2 TAB; Start 10/07/16 at 03:00 Bisacodyl 10 mg 10 mg DAILY PRN [place] CONSTIPATION Last administered on 10/07/16 03:07; Admin Dose 10 MG; Start 10/07/16 at 03:00 Vancomycin HCl/ Sodium Chloride (Vancocin/NS) 150 ml @ 75 mls/hr Q8H IVPB Last administered on 10/08/16 18:31; Admin Dose 75 MLS/HR; Start 10/08/16 at 19 :00 JARAD CHOI MD Oct 08, 2016 22:06
[2016-10-09] MEDS: METHYLNALTREXONE 12 MG/0.6 ML VIAL SC SCH
[2016-10-09] MEDS: METHADONE (1 MG/1 ML PO SYG) PO SCH ×4 (00:52→18:00)
[2016-10-09] MEDS: HYDROmorphONE 2 MG/ML SYG IV PRN ×6 (01:20→21:01)
[2016-10-09] MEDS: VANCOMYCIN 750 MG in SOD CHLORIDE 0.9% 150 ML IVPB SCH ×3 (02:50→19:40)
[2016-10-09 05:46] LABS: ALBUMIN 2.3 g/dl (3.3-4.9)
[2016-10-09 05:47] LABS: POTASSIUM 3.7 mmol/L (3.5-5.1)
[2016-10-09 05:49] LABS: BILIRUBIN,INDIRECT 0.3 mg/dl (0-1.1); BILIRUBIN,TOTAL 0.3 mg/dl (0.2-1.3); CREATININE 0.33 mg/dl (0.61-1.24)
[2016-10-09 05:50] LABS: ALBUMIN/GLOBULIN RATIO 0.82; CALCIUM 7.2 mg/dl (8.4-10.2); TOTAL PROTEIN 5.1 g/dl (6.1-8.1)
[2016-10-09 09:00] VITALS: BP 100/62; PULSE 87; RESP 16
[2016-10-09] MEDS: MEGESTROL (40 MG/ML) 10ML CUP PO SCH ×2 (09:27→20:53)
[2016-10-09] MEDS: ESCITALOPRAM 10 MG TAB PO SCH (09:27)
[2016-10-09] MEDS: SENNA TAB PO SCH ×2 (09:27→20:53)
[2016-10-09] MEDS: metroNIDAZOLE 500 MG TAB PO SCH ×4 (09:28→20:53)
[2016-10-09] MEDS: predniSONE 5 MG TAB PO SCH ×2 (09:28→20:53)
[2016-10-09] MEDS: CALCIUM/VITAMIN D (500/200) TAB PO SCH ×2 (09:28→20:53)
[2016-10-09] MEDS: PANTOPRAZOLE (EC) 40 MG TAB PO SCH (09:28)
[2016-10-09] MEDS: BICALUTAMIDE 50 MG TAB PO SCH (09:35)
[2016-10-09 11:01] LABS: HEMOGLOBIN 8.9 g/dl (14.0-18.0); UNCORRECTED WBC 1.7 10^3/ul (4.8-10.8); WHITE BLOOD COUNT 1.7 10^3/ul (4.8-10.8)
[2016-10-09 11:02] LABS: MEAN CORPUSCULAR HEMOGLOBIN 28.9 pg (29.0-33.0); MEAN CORPUSCULAR HGB CONC 34.4 g/dl (32.0-37.0); MEAN PLATELET VOLUME 8.6 fl (7.4-10.4); PLATELET COUNT 65 10^3/UL (140-440); RED CELL DISTRIBUTION WIDTH 15.6 % (11.5-14.5)
[2016-10-09] MEDS: NS + KCL 20 MEQ 1,000 ML IV SCH (11:07)
--- NOTE | 2016-10-09 12:14 | PN ---
Date/Time of Note Date/Time of Note DATE: 10/09/16 TIME: 12:14 Assessment/Plan VTE Prophylaxis VTE Prophylaxis Intervention: other Lines/Catheters IV Catheter Type (from Nrsg): PICC Line Central line still needed: Yes Urinary Cath still in place: Yes Reason Cath still needed: skin wounds contaminated by urine Assessment/Plan Chief Complaint/Hosp Course 1) Hypotension - stable 2) Dehydration - IV fluids 3) Anemia - monitor H/H 4) Intractable pain - pain control 5) Prostate carcinoma - sp Radiation therapy by Dr Ghassan Hylton - oncology consult appreciated- Dr Silva 6) Thrombocytopenia - monitor 7) C. diff colitis - flagyl 500mg IV q6hr Patient and family may be ready for hospice Problems: Subjective 24 Hr Interval Summary Free Text/Dictation Patient has no complaints Exam/Review of Systems Vital Signs Vitals Vital Signs Date Time Temp Pulse Resp B/P Pulse Ox O2 Delivery O2 Flow Rate FiO2 10/08/16 20:09 98.3 89 21 101/63 100 10/06/16 23:55 Room Air Intake and Output 10/08/16 10/08/16 10/09/16 15:00 23:00 07:00 Intake Total 1130 ml 950 ml Output Total 1500 ml 1350 ml Balance -370 ml -400 ml Exam Constitutional: well developed Head: atraumatic, normocephalic Neck: supple Respiratory: clear to auscultation Cardiovascular: regular rate and rhythm Gastrointestinal: non-tender, soft Extremities: normal pulses Results Result Diagram: 10/09/16 0415 10/09/16 0413 Results 24 hrs Laboratory Tests Test 10/08/16 15:45 10/09/16 04:13 10/09/16 04:15 Vancomycin Level Trough 18.2 Alanine Aminotransferase (ALT/SGPT) 24 Albumin 2.3 L Albumin/Globulin Ratio 0.82 Alkaline Phosphatase 913 H Anion Gap 12 Aspartate Amino Transf (AST/SGOT) 29 Blood Urea Nitrogen 4 L Calcium Level 7.2 L Carbon Dioxide Level 23 Chloride Level 103 Creatinine 0.33 L Direct Bilirubin 0.00 Globulin 2.80 Glucose Level 77 Indirect Bilirubin 0.3 Potassium Level 3.7 Sodium Level 134 L Total Bilirubin 0.3 Total Protein 5.1 L Basophils # 0.0 Basophils % 1.0 Hematocrit 26.0 L Hemoglobin 8.9 L Lymphocytes # 0.0 L Lymphocytes % 42.0 Mean Corpuscular Hemoglobin 28.9 L Mean Corpuscular Hemoglobin Concent 34.4 Mean Corpuscular Volume 84.0 Mean Platelet Volume 8.6 Monocytes # 0.0 L Monocytes % 12.0 H Neutrophils # 0.0 L Neutrophils % 30.0 L Platelet Count 65 L Red Blood Count 3.10 L Red Cell Distribution Width 15.6 H White Blood Count 1.7 L Medications Medications Current Medications Bicalutamide (Casodex) 50 mg QAM PO Last administered on 10/09/16 09:35; Admin Dose 50 MG; Start 09/07/16 at 09:00 Docusate Sodium (Colace) 100 mg BID PRN PO CONSTIPATION Last administered on 05:22; Admin Dose 100 MG; Start 09/07/16 at 00:00 Escitalopram Oxalate (Lexapro) 5 mg DAILY PO Last administered on 10/09/16 09: 27; Admin Dose 5 MG; Start 09/07/16 at 09:00 Megestrol Acetate (Megace Susp) 400 mg BID PO Last administered on 10/09/16 09 :27; Admin Dose 400 MG; Start 09/07/16 at 09:00 Methylnaltrexone [place] (Relistor) 12 mg Q48H SC Last administered on 00:27; Admin Dose 12 MG; Start 09/07/16 at 00:00 Ondansetron HCl (Zofran Tab) 4 mg Q6H PRN PO NAUSEA AND/OR VOMITING Last administered on 10/05/16 19:46; Admin Dose 4 MG; Start 09/07/16 at 00:00 Acetaminophen (Tylenol Tab) 500 mg Q4H PRN PO PAIN AND OR ELEVATED TEMP Last administered on 10/05/16 15:37; Admin Dose 500 MG; Start 09/07/16 at 21:30 IV Flush (NS 10 ml) 10 ml PRN PRN IV IV PROTOCOL; Start 09/11/16 at 10:00 Calcium/Vitamin D (Oyster Shell/ Vit-D (500/200)) 1 tab BID PO Last administered on 10/09/16 09:28; Admin Dose 1 TAB; Start 09/12/16 at 14:00 IV Flush (NS 10 ml) 10 ml PRN PRN IV IV PROTOCOL; Start 09/21/16 at 12:00 Metronidazole (Flagyl) 500 mg QID PO Last administered on 10/09/16 09:28; Admin Dose 500 MG; Start 09/22/16 at 13:00 Methadone HCl 2 mg 2 mg Q6 PO Last administered on 10/09/16 05:34; Admin Dose 2 MG; Start 09/23/16 at 18:00 Potassium Chloride/Sodium Chloride 1,000 ml @ 70 mls/hr [id number] IV Last administered on 10/09/16 11:07; Admin Dose 70 MLS/HR; Start 09/28/16 at 16:30 Ondansetron HCl/ Sodium Chloride (Zofran Inj/NS) 54 ml @ 216 mls/hr Q12H PRN IV NAUSEA AND/OR VOMITING; Start 09/29/16 at 22:00 Prednisone 5 mg 5 mg BID PO Last administered on 10/09/16 09:28; Admin Dose 5 MG; Start 09/29/16 at 21:00 Docetaxel 45 mg/ Sodium Chloride 100 ml @ 100 mls/hr Th@22 IV Last administered on 10/06/16 22:24; Admin Dose 100 MLS/HR; Start 10/06/16 at 22:00 ; Stop 10/27/16 at 22:59 Ondansetron HCl/ Dexamethasone/ Dextrose (Zofran Inj/ Decadron/D5W) 60 ml @ 252 mls/hr Th@2130 IV Last administered on 10/06/16 21:31; Admin Dose 252 MLS/ HR; Start 10/06/16 at 21:30; Stop 10/27/16 at 21:45 Hydromorphone HCl (Dilaudid) 1.5 mg Q3H PRN IV PAIN Last administered on 11:06; Admin Dose 1.5 MG; Start 10/07/16 at 03:00 Senna (Senokot) 2 tab BID PO Last administered on 10/09/16 09:27; Admin Dose 2 TAB; Start 10/07/16 at 03:00 Bisacodyl 10 mg 10 mg DAILY PRN [place] CONSTIPATION Last administered on 10/07/16 03:07; Admin Dose 10 MG; Start 10/07/16 at 03:00 Vancomycin HCl/ Sodium Chloride (Vancocin/NS) 150 ml @ 75 mls/hr Q8H IVPB Last administered on 10/09/16t 11:06; Admin Dose 75 MLS/HR; Start 10/08/16 at 19 :00 Miscellaneous Information (*Rx Drug Level Order Reminder*) VANCOMYCIN TROUGH AT 1800 ONCE ONCE XX ; Start 10/09/16 at 18:00; Stop 10/09/16 at 18:01 NASREEN DAMON Oct 09, 2016 12:14
--- NOTE | 2016-10-09 14:30 | CONS ---
Date/Time of Note Date/Time of Note DATE: 10/09/16 TIME: 14:29 Assessment/Plan Assessment/Plan Chief Complaint/Hosp Course Awake, lying comfortably in bed, no fevers, nad ANTIMICROBIALS: 1. IV vancomycin. 2. Flagyl. INDWELLINGS: PICC line. PHYSICAL EXAMINATION: GENERAL: Cachectic elderly man who is in no distress. HEENT: Head atraumatic, normocephalic. Sclerae anicteric. Buccal mucosa dry. NECK: Supple, trachea midline. CHEST: Rise symmetrical. Breath sounds diminished to bases. HEART: S1, S2. ABDOMEN: Soft, bowel sounds present. EXTREMITIES: Without cyanosis. ASSESSMENT: 1. Methicillin-resistant Staphylococcus aureus urinary tract infection. 2. Resolving Clostridium difficile colitis. 3. Metastatic prostate carcinoma. 4. Pancytopenia. 5. Severe deconditioning. PLAN: The patient remains stable, covered with appropriate antimicrobials. Oncology rec-s noted [facility] staff Problems: Consultation Date/Type/Reason Admit Date/Time Sep 06, 2016 at 22:01 Initial Consult Date 09/08/16 Type of Consultation: ID Referring Provider: TIMOTHY MARAVILLA MD Exam/Review of Systems Vital Signs Vitals Vital Signs Date Time Temp Pulse Resp B/P Pulse Ox O2 Delivery O2 Flow Rate FiO2 10/09/16 09:00 98.5 87 16 100/62 96 Room Air Intake and Output 10/08/16 10/08/16 10/09/16 15:00 23:00 07:00 Intake Total 1130 ml 950 ml Output Total 1500 ml 1350 ml Balance -370 ml -400 ml Results Result Diagram: 10/09/16 0415 10/09/16 0413 Results 24 hrs Laboratory Tests Test 10/08/16 15:45 10/09/16 04:13 10/09/16 04:15 Vancomycin Level Trough 18.2 Alanine Aminotransferase (ALT/SGPT) 24 Albumin 2.3 L Albumin/Globulin Ratio 0.82 Alkaline Phosphatase 913 H Anion Gap 12 Aspartate Amino Transf (AST/SGOT) 29 Blood Urea Nitrogen 4 L Calcium Level 7.2 L Carbon Dioxide Level 23 Chloride Level 103 Creatinine 0.33 L Direct Bilirubin 0.00 Globulin 2.80 Glucose Level 77 Indirect Bilirubin 0.3 Potassium Level 3.7 Sodium Level 134 L Total Bilirubin 0.3 Total Protein 5.1 L Basophils # 0.0 Basophils % 1.0 Hematocrit 26.0 L Hemoglobin 8.9 L Lymphocytes # 0.0 L Lymphocytes % 42.0 Mean Corpuscular Hemoglobin 28.9 L Mean Corpuscular Hemoglobin Concent 34.4 Mean Corpuscular Volume 84.0 Mean Platelet Volume 8.6 Monocytes # 0.0 L Monocytes % 12.0 H Neutrophils # 0.0 L Neutrophils % 30.0 L Platelet Count 65 L Red Blood Count 3.10 L Red Cell Distribution Width 15.6 H White Blood Count 1.7 L Medications Medications Current Medications Bicalutamide (Casodex) 50 mg QAM PO Last administered on 10/09/16 09:35; Admin Dose 50 MG; Start 09/07/16 at 09:00 Docusate Sodium (Colace) 100 mg BID PRN PO CONSTIPATION Last administered on 05:22; Admin Dose 100 MG; Start 09/07/16 at 00:00 Escitalopram Oxalate (Lexapro) 5 mg DAILY PO Last administered on 10/09/16 09: 27; Admin Dose 5 MG; Start 09/07/16 at 09:00 Megestrol Acetate (Megace Susp) 400 mg BID PO Last administered on 10/09/16 09 :27; Admin Dose 400 MG; Start 09/07/16 at 09:00 Methylnaltrexone [place] (Relistor) 12 mg Q48H SC Last administered on 00:27; Admin Dose 12 MG; Start 09/07/16 at 00:00 Ondansetron HCl (Zofran Tab) 4 mg Q6H PRN PO NAUSEA AND/OR VOMITING Last administered on 10/05/16 19:46; Admin Dose 4 MG; Start 09/07/16 at 00:00 Acetaminophen (Tylenol Tab) 500 mg Q4H PRN PO PAIN AND OR ELEVATED TEMP Last administered on 10/05/16 15:37; Admin Dose 500 MG; Start 09/07/16 at 21:30 IV Flush (NS 10 ml) 10 ml PRN PRN IV IV PROTOCOL; Start 09/11/16 at 10:00 Calcium/Vitamin D (Oyster Shell/ Vit-D (500/200)) 1 tab BID PO Last administered on 10/09/16 09:28; Admin Dose 1 TAB; Start 09/12/16 at 14:00 IV Flush (NS 10 ml) 10 ml PRN PRN IV IV PROTOCOL; Start 09/21/16 at 12:00 Metronidazole (Flagyl) 500 mg QID PO Last administered on 10/09/16 09:28; Admin Dose 500 MG; Start 09/22/16 at 13:00 Methadone HCl 2 mg 2 mg Q6 PO Last administered on 10/09/16 05:34; Admin Dose 2 MG; Start 09/23/16 at 18:00 Potassium Chloride/Sodium Chloride 1,000 ml @ 70 mls/hr [id number] IV Last administered on 10/09/16 11:07; Admin Dose 70 MLS/HR; Start 09/28/16 at 16:30 Ondansetron HCl/ Sodium Chloride (Zofran Inj/NS) 54 ml @ 216 mls/hr Q12H PRN IV NAUSEA AND/OR VOMITING; Start 09/29/16 at 22:00 Prednisone 5 mg 5 mg BID PO Last administered on 10/09/16 09:28; Admin Dose 5 MG; Start 09/29/16 at 21:00 Docetaxel 45 mg/ Sodium Chloride 100 ml @ 100 mls/hr Th@22 IV Last administered on 10/06/16 22:24; Admin Dose 100 MLS/HR; Start 10/06/16 at 22:00 ; Stop 10/27/16 at 22:59 Ondansetron HCl/ Dexamethasone/ Dextrose (Zofran Inj/ Decadron/D5W) 60 ml @ 252 mls/hr Th@2130 IV Last administered on 10/06/16 21:31; Admin Dose 252 MLS/ HR; Start 10/06/16 at 21:30; Stop 10/27/16 at 21:45 Hydromorphone HCl (Dilaudid) 1.5 mg Q3H PRN IV PAIN Last administered on 11:06; Admin Dose 1.5 MG; Start 10/07/16 at 03:00 Senna (Senokot) 2 tab BID PO Last administered on 10/09/16 09:27; Admin Dose 2 TAB; Start 10/07/16 at 03:00 Bisacodyl 10 mg 10 mg DAILY PRN [place] CONSTIPATION Last administered on 10/07/16 03:07; Admin Dose 10 MG; Start 10/07/16 at 03:00 Vancomycin HCl/ Sodium Chloride (Vancocin/NS) 150 ml @ 75 mls/hr Q8H IVPB Last administered on 10/09/16t 11:06; Admin Dose 75 MLS/HR; Start 10/08/16 at 19 :00 Miscellaneous Information (*Rx Drug Level Order Reminder*) VANCOMYCIN TROUGH AT 1800 ONCE ONCE XX ; Start 10/09/16 at 18:00; Stop 10/09/16 at 18:01 EUNICE GUNTER NP Oct 09, 2016 14:30
[2016-10-09 20:00] VITALS: BP 111/67; RESP 21
--- NOTE | 2016-10-09 22:29 | CONS ---
Date/Time of Note Date/Time of Note DATE: 10/09/16 TIME: 22:28 Assessment/Plan Assessment/Plan Chief Complaint/Hosp Course Metastatic prostate cancer. POS CHEMO # 2 chemotherapy and steroids - PER PROTOCOL Chemotherapy Docetaxel (Taxotere) 30 mg/m2 IV over 30 minutes once per day on days 1, 8, 15, 22, 29 Prednisone (Sterapred) 5 mg PO BID on days 1 to 42 Supportive medications Dexamethasone (Decadron) 8 mg (route not specified) once 1 hour before Docetaxel (Taxotere) Antiemetics "according to local practice" 42-day cycle for up to 5 cycles ANEMIA POST PRBC MONITOR CLOSELY OBSERVE FOR BLEEDING AND HEMOLYSIS Thrombocytopenia. Continue to monitor platelets. transfuse as needed PANCYTOPENIA MONITOR DECONDITIONING PT Acute on chronic back pain. Dr. Ferguson is following the patient in pain management. Continue methadone and Dilaudid p.r.n. for breakthrough pain. Clostridium difficile colitis. Continue Flagyl and contact isolation- per ID Problems: Consultation Date/Type/Reason Admit Date/Time Sep 06, 2016 at 22:01 Initial Consult Date 09/08/16 Type of Consultation: hemeon Referring Provider: TIMOTHY MARAVILLA MD 24 HR Interval Summary Free Text/Dictation NO NEW EVENTS COUNT REVIEWED POST CHEMO Exam/Review of Systems Vital Signs Vitals Vital Signs Date Time Temp Pulse Resp B/P Pulse Ox O2 Delivery O2 Flow Rate FiO2 10/09/16 20:00 98.1 101 21 111/67 100 10/09/16 09:00 Room Air Intake and Output 10/08/16 10/08/16 10/09/16 15:00 23:00 07:00 Intake Total 1130 ml 950 ml Output Total 1500 ml 1350 ml Balance -370 ml -400 ml Exam Constitutional: alert, oriented Psych: nl mood/affect Head: normocephalic Eyes: EOMI, nl conjunctiva ENMT: nl external ears & nose Neck: non-tender Respiratory: clear to auscultation Cardiovascular: nl pulses Gastrointestinal: soft, tender (diffuse tenderness ) Extremities: normal pulses 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: nl speech Skin: nl turgor Lymph: nontender Results Result Diagram: 10/09/16 0415 10/09/16 0413 Results 24 hrs Laboratory Tests Test 10/09/16 04:13 10/09/16 04:15 10/09/16 18:13 Alanine Aminotransferase (ALT/SGPT) 24 Albumin 2.3 L Albumin/Globulin Ratio 0.82 Alkaline Phosphatase 913 H Anion Gap 12 Aspartate Amino Transf (AST/SGOT) 29 Blood Urea Nitrogen 4 L Calcium Level 7.2 L Carbon Dioxide Level 23 Chloride Level 103 Creatinine 0.33 L Direct Bilirubin 0.00 Globulin 2.80 Glucose Level 77 Indirect Bilirubin 0.3 Potassium Level 3.7 Sodium Level 134 L Total Bilirubin 0.3 Total Protein 5.1 L Basophils # 0.0 Basophils % 1.0 Hematocrit 26.0 L Hemoglobin 8.9 L Lymphocytes # 0.0 L Lymphocytes % 42.0 Mean Corpuscular Hemoglobin 28.9 L Mean Corpuscular Hemoglobin Concent 34.4 Mean Corpuscular Volume 84.0 Mean Platelet Volume 8.6 Monocytes # 0.0 L Monocytes % 12.0 H Neutrophils # 0.0 L Neutrophils % 30.0 L Platelet Count 65 L Red Blood Count 3.10 L Red Cell Distribution Width 15.6 H White Blood Count 1.7 L Vancomycin Level Trough 14.9 Medications Medications Current Medications Bicalutamide (Casodex) 50 mg QAM PO Last administered on 10/09/16 09:35; Admin Dose 50 MG; Start 09/07/16 at 09:00 Docusate Sodium (Colace) 100 mg BID PRN PO CONSTIPATION Last administered on 05:22; Admin Dose 100 MG; Start 09/07/16 at 00:00 Escitalopram Oxalate (Lexapro) 5 mg DAILY PO Last administered on 10/09/16 09: 27; Admin Dose 5 MG; Start 09/07/16 at 09:00 Megestrol Acetate (Megace Susp) 400 mg BID PO Last administered on 10/09/16 20 :53; Admin Dose 400 MG; Start 09/07/16 at 09:00 Methylnaltrexone [place] (Relistor) 12 mg Q48H SC Last administered on 00:27; Admin Dose 12 MG; Start 09/07/16 at 00:00 Ondansetron HCl (Zofran Tab) 4 mg Q6H PRN PO NAUSEA AND/OR VOMITING Last administered on 10/05/16 19:46; Admin Dose 4 MG; Start 09/07/16 at 00:00 Acetaminophen (Tylenol Tab) 500 mg Q4H PRN PO PAIN AND OR ELEVATED TEMP Last administered on 10/05/16 15:37; Admin Dose 500 MG; Start 09/07/16 at 21:30 IV Flush (NS 10 ml) 10 ml PRN PRN IV IV PROTOCOL; Start 09/11/16 at 10:00 Calcium/Vitamin D (Oyster Shell/ Vit-D (500/200)) 1 tab BID PO Last administered on 10/09/16 20:53; Admin Dose 1 TAB; Start 09/12/16 at 14:00 IV Flush (NS 10 ml) 10 ml PRN PRN IV IV PROTOCOL; Start 09/21/16 at 12:00 Metronidazole (Flagyl) 500 mg QID PO Last administered on 10/09/16 20:53; Admin Dose 500 MG; Start 09/22/16 at 13:00 Methadone HCl 2 mg 2 mg Q6 PO Last administered on 10/09/16 05:34; Admin Dose 2 MG; Start 09/23/16 at 18:00 Potassium Chloride/Sodium Chloride 1,000 ml @ 70 mls/hr [id number] IV Last administered on 10/09/16 11:07; Admin Dose 70 MLS/HR; Start 09/28/16 at 16:30 Ondansetron HCl/ Sodium Chloride (Zofran Inj/NS) 54 ml @ 216 mls/hr Q12H PRN IV NAUSEA AND/OR VOMITING; Start 09/29/16 at 22:00 Prednisone 5 mg 5 mg BID PO Last administered on 10/09/16 20:53; Admin Dose 5 MG; Start 09/29/16 at 21:00 Docetaxel 45 mg/ Sodium Chloride 100 ml @ 100 mls/hr Th@22 IV Last administered on 10/06/16 22:24; Admin Dose 100 MLS/HR; Start 10/06/16 at 22:00 ; Stop 10/27/16 at 22:59 Ondansetron HCl/ Dexamethasone/ Dextrose (Zofran Inj/ Decadron/D5W) 60 ml @ 252 mls/hr Th@2130 IV Last administered on 10/06/16 21:31; Admin Dose 252 MLS/ HR; Start 10/06/16 at 21:30; Stop 10/27/16 at 21:45 Hydromorphone HCl (Dilaudid) 1.5 mg Q3H PRN IV PAIN Last administered on 21:01; Admin Dose 1.5 MG; Start 10/07/16 at 03:00 Senna (Senokot) 2 tab BID PO Last administered on 10/09/16 09:27; Admin Dose 2 TAB; Start 10/07/16 at 03:00 Bisacodyl 10 mg 10 mg DAILY PRN [place] CONSTIPATION Last administered on 10/07/16 03:07; Admin Dose 10 MG; Start 10/07/16 at 03:00 Vancomycin HCl/ Sodium Chloride (Vancocin/NS) 150 ml @ 75 mls/hr Q8H IVPB Last administered on 10/09/16 19:40; Admin Dose 75 MLS/HR; Start 10/08/16 at 19 :00 JARAD CHOI MD Oct 09, 2016 22:29
[2016-10-10] MEDS: HYDROmorphONE 2 MG/ML SYG IV PRN ×6 (01:44→19:48)
[2016-10-10] MEDS: NS + KCL 20 MEQ 1,000 ML IV SCH ×2 (01:44→14:30)
[2016-10-10] MEDS: VANCOMYCIN 750 MG in SOD CHLORIDE 0.9% 150 ML IVPB SCH ×3 (03:04→19:45)
[2016-10-10] MEDS: METHADONE (1 MG/1 ML PO SYG) PO SCH ×5 (05:39→18:32)
[2016-10-10 06:00] LABS: ALBUMIN 2.4 g/dl (3.3-4.9); POTASSIUM 3.7 mmol/L (3.5-5.1)
[2016-10-10 06:02] LABS: CREATININE 0.31 mg/dl (0.61-1.24)
[2016-10-10 06:03] LABS: ALBUMIN/GLOBULIN RATIO 0.85; BILIRUBIN,INDIRECT 0.2 mg/dl (0-1.1); BILIRUBIN,TOTAL 0.2 mg/dl (0.2-1.3); CALCIUM 7.1 mg/dl (8.4-10.2); TOTAL PROTEIN 5.2 g/dl (6.1-8.1)
[2016-10-10 06:19] LABS: HEMATOCRIT 26.4 % (42.0-52.0); MEAN CORPUSCULAR HEMOGLOBIN 29.1 pg (29.0-33.0); MEAN CORPUSCULAR HGB CONC 34.2 g/dl (32.0-37.0); MEAN CORPUSCULAR VOLUME 85.2 fl (82.0-101.0); MEAN PLATELET VOLUME 8.4 fl (7.4-10.4); PLATELET COUNT 78 10^3/UL (140-440); RED CELL DISTRIBUTION WIDTH 15.8 % (11.5-14.5)
[2016-10-10 06:22] LABS: CONDITION 1; LH ANALYZER COMMENTS 1
[2016-10-10 07:40] VITALS: BP 102/66; RESP 18
[2016-10-10] MEDS: SENNA TAB PO SCH ×2 (09:00→21:00)
[2016-10-10] MEDS: MEGESTROL (40 MG/ML) 10ML CUP PO SCH ×2 (09:16→22:03)
[2016-10-10] MEDS: PANTOPRAZOLE (EC) 40 MG TAB PO SCH (09:17)
[2016-10-10] MEDS: CALCIUM/VITAMIN D (500/200) TAB PO SCH ×2 (09:17→22:03)
[2016-10-10] MEDS: ESCITALOPRAM 10 MG TAB PO SCH (09:17)
[2016-10-10] MEDS: metroNIDAZOLE 500 MG TAB PO SCH ×2 (09:17→13:00)
[2016-10-10] MEDS: predniSONE 5 MG TAB PO SCH ×2 (09:17→22:03)
[2016-10-10] MEDS: BICALUTAMIDE 50 MG TAB PO SCH (09:25)
[2016-10-10 13:40] LABS: LYMPHOCYTES # 0.4 10^3/ul (0.8-2.9); MONOCYTE # 0.3 10^3/ul (0.3-0.9); MYELOCYTES # 0.1; NEUTROPHIL # 0.5 10^3/ul (1.6-7.5); PLATELET ESTIMATE PLT APPEAR DECREASED
--- NOTE | 2016-10-10 16:26 | CONS ---
Date/Time of Note Date/Time of Note DATE: 10/10/16 TIME: 16:24 Assessment/Plan Assessment/Plan Chief Complaint/Hosp Course Awake, lying comfortably in bed, up with PT, afebrile, nad ANTIMICROBIALS: 1. IV vancomycin. 2. Flagyl. INDWELLINGS: PICC line, White. PHYSICAL EXAMINATION: GENERAL: Cachectic elderly man who is in no distress. HEENT: Head atraumatic, normocephalic. Sclerae anicteric. Buccal mucosa dry. NECK: Supple, trachea midline. CHEST: Rise symmetrical. Breath sounds diminished to bases. HEART: S1, S2. ABDOMEN: Soft, bowel sounds present. EXTREMITIES: Without cyanosis. ASSESSMENT: 1. Methicillin-resistant Staphylococcus aureus urinary tract infection. 2. Clostridium difficile colitis. 3. Metastatic prostate carcinoma. 4. Pancytopenia. 5. Severe deconditioning. PLAN: The patient remains stable, repeat stool + C dif, will change Flagyl to PO Vanco. DW staff Problems: Consultation Date/Type/Reason Admit Date/Time Sep 06, 2016 at 22:01 Initial Consult Date 09/08/16 Type of Consultation: id Referring Provider: TIMOTHY MARAVILLA MD Exam/Review of Systems Vital Signs Vitals Vital Signs Date Time Temp Pulse Resp B/P Pulse Ox O2 Delivery O2 Flow Rate FiO2 10/10/16 07:40 98.3 87 18 102/66 99 10/09/16 09:00 Room Air Intake and Output 10/09/16 10/09/16 10/10/16 15:00 23:00 07:00 Intake Total 150 ml 50 ml 1700 ml Output Total 1100 ml 1100 ml Balance 150 ml -1050 ml 600 ml Results Result Diagram: 10/10/16 0440 10/10/16 0455 Results 24 hrs Laboratory Tests Test 10/09/16 18:13 10/10/16 04:40 10/10/16 04:55 Vancomycin Level Trough 14.9 Band Neutrophils % 21.0 H Basophils # 0.0 Basophils % 1.0 Blood Morphology Comment Eosinophils # 0.0 Eosinophils % 1.0 Hematocrit 26.4 L Hemoglobin 9.0 L Lymphocytes # 0.4 L Lymphocytes % 21.0 Mean Corpuscular Hemoglobin 29.1 Mean Corpuscular Hemoglobin Concent 34.2 Mean Corpuscular Volume 85.2 Mean Platelet Volume 8.4 Metamyelocytes # 0.1 Metamyelocytes % 4.0 H Monocytes # 0.3 Monocytes % 14.0 H Myelocytes # 0.1 Myelocytes % 7.0 H Neutrophils # 0.5 L Neutrophils % 26.0 L Nucleated Red Blood Cells # Nucleated Red Blood Cells % 7.0 H Platelet Count 78 L Platelet Estimate PLT APPEAR DECREASED Promyelocytes # 0.1 Promyelocytes % 5.0 H Red Blood Count 3.10 L Red Cell Distribution Width 15.8 H White Blood Count 2.0 L Alanine Aminotransferase (ALT/SGPT) 22 Albumin 2.4 L Albumin/Globulin Ratio 0.85 Alkaline Phosphatase 862 H Anion Gap 11 Aspartate Amino Transf (AST/SGOT) 26 Blood Urea Nitrogen 3 L Calcium Level 7.1 L Carbon Dioxide Level 23 Chloride Level 102 Creatinine 0.31 L Direct Bilirubin 0.00 Globulin 2.80 Glucose Level 86 Indirect Bilirubin 0.2 Potassium Level 3.7 Sodium Level 132 L Total Bilirubin 0.2 Total Protein 5.2 L Medications Medications Current Medications Bicalutamide (Casodex) 50 mg QAM PO Last administered on 10/10/16 09:25; Admin Dose 50 MG; Start 09/07/16 at 09:00 Docusate Sodium (Colace) 100 mg BID PRN PO CONSTIPATION Last administered on 05:22; Admin Dose 100 MG; Start 09/07/16 at 00:00 Escitalopram Oxalate (Lexapro) 5 mg DAILY PO Last administered on 10/10/16 09: 17; Admin Dose 5 MG; Start 09/07/16 at 09:00 Megestrol Acetate (Megace Susp) 400 mg BID PO Last administered on 10/10/16 09 :16; Admin Dose 400 MG; Start 09/07/16 at 09:00 Methylnaltrexone [place] (Relistor) 12 mg Q48H SC Last administered on 00:27; Admin Dose 12 MG; Start 09/07/16 at 00:00 Ondansetron HCl (Zofran Tab) 4 mg Q6H PRN PO NAUSEA AND/OR VOMITING Last administered on 10/05/16 19:46; Admin Dose 4 MG; Start 09/07/16 at 00:00 Acetaminophen (Tylenol Tab) 500 mg Q4H PRN PO PAIN AND OR ELEVATED TEMP Last administered on 10/05/16 15:37; Admin Dose 500 MG; Start 09/07/16 at 21:30 IV Flush (NS 10 ml) 10 ml PRN PRN IV IV PROTOCOL; Start 09/11/16 at 10:00 Calcium/Vitamin D (Oyster Shell/ Vit-D (500/200)) 1 tab BID PO Last administered on 10/10/16 09:17; Admin Dose 1 TAB; Start 09/12/16 at 14:00 IV Flush (NS 10 ml) 10 ml PRN PRN IV IV PROTOCOL; Start 09/21/16 at 12:00 Metronidazole (Flagyl) 500 mg QID PO Last administered on 10/10/16 09:17; Admin Dose 500 MG; Start 09/22/16 at 13:00 Methadone HCl 2 mg 2 mg Q6 PO Last administered on 10/10/16 12:57; Admin Dose 2 MG; Start 09/23/16 at 18:00 Potassium Chloride/Sodium Chloride 1,000 ml @ 70 mls/hr [id number] IV Last administered on 10/10/16 01:44; Admin Dose 70 MLS/HR; Start 09/28/16 at 16:30 Ondansetron HCl/ Sodium Chloride (Zofran Inj/NS) 54 ml @ 216 mls/hr Q12H PRN IV NAUSEA AND/OR VOMITING; Start 09/29/16 at 22:00 Prednisone 5 mg 5 mg BID PO Last administered on 10/10/16 09:17; Admin Dose 5 MG; Start 09/29/16 at 21:00 Docetaxel 45 mg/ Sodium Chloride 100 ml @ 100 mls/hr Th@22 IV Last administered on 10/06/16 22:24; Admin Dose 100 MLS/HR; Start 10/06/16 at 22:00 ; Stop 10/27/16 at 22:59 Ondansetron HCl/ Dexamethasone/ Dextrose (Zofran Inj/ Decadron/D5W) 60 ml @ 252 mls/hr Th@2130 IV Last administered on 10/06/16 21:31; Admin Dose 252 MLS/ HR; Start 10/06/16 at 21:30; Stop 10/27/16 at 21:45 Hydromorphone HCl (Dilaudid) 1.5 mg Q3H PRN IV PAIN Last administered on 13:28; Admin Dose 1.5 MG; Start 10/07/16 at 03:00 Senna (Senokot) 2 tab BID PO Last administered on 10/09/16 09:27; Admin Dose 2 TAB; Start 10/07/16 at 03:00 Bisacodyl 10 mg 10 mg DAILY PRN [place] CONSTIPATION Last administered on 10/07/16 03:07; Admin Dose 10 MG; Start 10/07/16 at 03:00 Vancomycin HCl/ Sodium Chloride (Vancocin/NS) 150 ml @ 75 mls/hr Q8H IVPB Last administered on 10/10/16 11:58; Admin Dose 75 MLS/HR; Start 10/08/16 at 19 :00 EUNICE GUNTER NP Oct 10, 2016 16:26
--- NOTE | 2016-10-10 18:13 | PN ---
Date/Time of Note Date/Time of Note DATE: 10/10/16 TIME: 18:10 Assessment/Plan VTE Prophylaxis VTE Prophylaxis Intervention: SCD's Lines/Catheters IV Catheter Type (from Nrsg): PICC Line Central line still needed: Yes Urinary Cath still in place: Yes Reason Cath still needed: urinary retention Assessment/Plan Chief Complaint/Hosp Course ASSESSMENT AND PLAN: 1. Clostridium difficile colitis. Continue vancomycin by mouth and contact isolation. 2. Metastatic prostate cancer. Dr. Hernandez is following patient in oncology consultation. Continue chemotherapy and steroids. 3. Thrombocytopenia. Continue to monitor platelets. 4. Acute on chronic back pain. Dr. Ferguson is following the patient in pain management. Continue methadone and Dilaudid p.r.n. for breakthrough pain. 5. Anemia, this post blood transfusion, continue to monitor hemoglobin and hematocrit. 6. MRSA UTI, cont Vanco, Dr Schuler is following in infectious disease consultation. Continue Protonix for peptic ulcer disease prophylaxis. Further recommendations based on clinical course. Plan of care discussed with Dr. Nichols. Problems: Subjective 24 Hr Interval Summary Free Text/Dictation No acute events overnight, pain is well controlled, no fever nausea vomiting per RN. Exam/Review of Systems Vital Signs Vitals Vital Signs Date Time Temp Pulse Resp B/P Pulse Ox O2 Delivery O2 Flow Rate FiO2 10/10/16 07:40 98.3 87 18 102/66 99 10/09/16 09:00 Room Air Intake and Output 10/09/16 10/09/16 10/10/16 15:00 23:00 07:00 Intake Total 150 ml 50 ml 1700 ml Output Total 1100 ml 1100 ml Balance 150 ml -1050 ml 600 ml Exam GENERAL: Well-developed, cachectic male, currently is awake, alert. HEENT: Head is atraumatic, normocephalic. PERRLA. NECK: Supple. No mass, no thyromegaly. LUNGS: Clear bilaterally. No rhonchi, wheezes, rales noted. HEART: Normal S1, S2. No murmurs, gallops, clicks, rubs noted. ABDOMEN: Flat, soft, nondistended, nontender. Bowel sounds present. EXTREMITIES: No edema. SKIN: There is no rash, petechiae noted. NEUROLOGIC: The patient is awake, alert, and oriented x3. Results Result Diagram: 10/10/16 0440 10/10/16 0455 Results 24 hrs Laboratory Tests Test 10/09/16 18:13 10/10/16 04:40 10/10/16 04:55 Vancomycin Level Trough 14.9 Band Neutrophils % 21.0 H Basophils # 0.0 Basophils % 1.0 Blood Morphology Comment Eosinophils # 0.0 Eosinophils % 1.0 Hematocrit 26.4 L Hemoglobin 9.0 L Lymphocytes # 0.4 L Lymphocytes % 21.0 Mean Corpuscular Hemoglobin 29.1 Mean Corpuscular Hemoglobin Concent 34.2 Mean Corpuscular Volume 85.2 Mean Platelet Volume 8.4 Metamyelocytes # 0.1 Metamyelocytes % 4.0 H Monocytes # 0.3 Monocytes % 14.0 H Myelocytes # 0.1 Myelocytes % 7.0 H Neutrophils # 0.5 L Neutrophils % 26.0 L Nucleated Red Blood Cells # Nucleated Red Blood Cells % 7.0 H Platelet Count 78 L Platelet Estimate PLT APPEAR DECREASED Promyelocytes # 0.1 Promyelocytes % 5.0 H Red Blood Count 3.10 L Red Cell Distribution Width 15.8 H White Blood Count 2.0 L Alanine Aminotransferase (ALT/SGPT) 22 Albumin 2.4 L Albumin/Globulin Ratio 0.85 Alkaline Phosphatase 862 H Anion Gap 11 Aspartate Amino Transf (AST/SGOT) 26 Blood Urea Nitrogen 3 L Calcium Level 7.1 L Carbon Dioxide Level 23 Chloride Level 102 Creatinine 0.31 L Direct Bilirubin 0.00 Globulin 2.80 Glucose Level 86 Indirect Bilirubin 0.2 Potassium Level 3.7 Sodium Level 132 L Total Bilirubin 0.2 Total Protein 5.2 L Medications Medications Current Medications Bicalutamide (Casodex) 50 mg QAM PO Last administered on 10/10/16 09:25; Admin Dose 50 MG; Start 09/07/16 at 09:00 Docusate Sodium (Colace) 100 mg BID PRN PO CONSTIPATION Last administered on 05:22; Admin Dose 100 MG; Start 09/07/16 at 00:00 Escitalopram Oxalate (Lexapro) 5 mg DAILY PO Last administered on 10/10/16 09: 17; Admin Dose 5 MG; Start 09/07/16 at 09:00 Megestrol Acetate (Megace Susp) 400 mg BID PO Last administered on 10/10/16 09 :16; Admin Dose 400 MG; Start 09/07/16 at 09:00 Methylnaltrexone [place] (Relistor) 12 mg Q48H SC Last administered on 00:27; Admin Dose 12 MG; Start 09/07/16 at 00:00 Ondansetron HCl (Zofran Tab) 4 mg Q6H PRN PO NAUSEA AND/OR VOMITING Last administered on 10/05/16 19:46; Admin Dose 4 MG; Start 09/07/16 at 00:00 Acetaminophen (Tylenol Tab) 500 mg Q4H PRN PO PAIN AND OR ELEVATED TEMP Last administered on 10/05/16 15:37; Admin Dose 500 MG; Start 09/07/16 at 21:30 IV Flush (NS 10 ml) 10 ml PRN PRN IV IV PROTOCOL; Start 09/11/16 at 10:00 Calcium/Vitamin D (Oyster Shell/ Vit-D (500/200)) 1 tab BID PO Last administered on 10/10/16 09:17; Admin Dose 1 TAB; Start 09/12/16 at 14:00 IV Flush (NS 10 ml) 10 ml PRN PRN IV IV PROTOCOL; Start 09/21/16 at 12:00 Methadone HCl 2 mg 2 mg Q6 PO Last administered on 10/10/16 12:57; Admin Dose 2 MG; Start 09/23/16 at 18:00 Potassium Chloride/Sodium Chloride 1,000 ml @ 70 mls/hr [id number] IV Last administered on 10/10/16 01:44; Admin Dose 70 MLS/HR; Start 09/28/16 at 16:30 Ondansetron HCl/ Sodium Chloride (Zofran Inj/NS) 54 ml @ 216 mls/hr Q12H PRN IV NAUSEA AND/OR VOMITING; Start 09/29/16 at 22:00 Prednisone 5 mg 5 mg BID PO Last administered on 10/10/16 09:17; Admin Dose 5 MG; Start 09/29/16 at 21:00 Docetaxel 45 mg/ Sodium Chloride 100 ml @ 100 mls/hr Th@22 IV Last administered on 10/06/16 22:24; Admin Dose 100 MLS/HR; Start 10/06/16 at 22:00 ; Stop 10/27/16 at 22:59 Ondansetron HCl/ Dexamethasone/ Dextrose (Zofran Inj/ Decadron/D5W) 60 ml @ 252 mls/hr Th@2130 IV Last administered on 10/06/16 21:31; Admin Dose 252 MLS/ HR; Start 10/06/16 at 21:30; Stop 10/27/16 at 21:45 Hydromorphone HCl (Dilaudid) 1.5 mg Q3H PRN IV PAIN Last administered on 16:46; Admin Dose 1.5 MG; Start 10/07/16 at 03:00 Senna (Senokot) 2 tab BID PO Last administered on 10/09/16 09:27; Admin Dose 2 TAB; Start 10/07/16 at 03:00 Bisacodyl 10 mg 10 mg DAILY PRN [place] CONSTIPATION Last administered on 10/07/16 03:07; Admin Dose 10 MG; Start 10/07/16 at 03:00 Vancomycin HCl/ Sodium Chloride (Vancocin/NS) 150 ml @ 75 mls/hr Q8H IVPB Last administered on 10/10/16 11:58; Admin Dose 75 MLS/HR; Start 10/08/16 at 19 :00 Vancomycin HCl (Vancomycin Oral Syringe) 250 mg Q6 PO ; Start 10/10/16 at 18:00 SREE GRIFFITH Oct 10, 2016 18:13
[2016-10-10] MEDS: VANCOMYCIN HCL 250 MG/5ML POSYG PO SCH (18:32)
[2016-10-10 20:07] VITALS: BP 104/73; RESP 20
[2016-10-10] MEDS: ZOLPIDEM 5 MG TAB PO PRN (22:03)
--- NOTE | 2016-10-10 23:15 | CONS ---
Date/Time of Note Date/Time of Note DATE: 10/10/16 TIME: 23:15 Assessment/Plan Assessment/Plan Chief Complaint/Hosp Course Metastatic prostate cancer. POS CHEMO # 2 chemotherapy and steroids - PER PROTOCOL Chemotherapy Docetaxel (Taxotere) 30 mg/m2 IV over 30 minutes once per day on days 1, 8, 15, 22, 29 Prednisone (Sterapred) 5 mg PO BID on days 1 to 42 Supportive medications Dexamethasone (Decadron) 8 mg (route not specified) once 1 hour before Docetaxel (Taxotere) Antiemetics "according to local practice" 42-day cycle for up to 5 cycles ANEMIA POST PRBC MONITOR CLOSELY OBSERVE FOR BLEEDING AND HEMOLYSIS Thrombocytopenia. Continue to monitor platelets. transfuse as needed PANCYTOPENIA MONITOR DECONDITIONING PT Acute on chronic back pain. Dr. Ferguson is following the patient in pain management. Continue methadone and Dilaudid p.r.n. for breakthrough pain. Clostridium difficile colitis. Continue Flagyl and contact isolation- per ID Problems: Consultation Date/Type/Reason Admit Date/Time Sep 06, 2016 at 22:01 Initial Consult Date 09/08/16 Referring Provider: TIMOTHY MARAVILLA MD 24 HR Interval Summary Free Text/Dictation ALL NOTED NO NEW EVENTS COUNT REVIEWED Exam/Review of Systems Vital Signs Vitals Vital Signs Date Time Temp Pulse Resp B/P Pulse Ox O2 Delivery O2 Flow Rate FiO2 10/10/16 20:07 97.3 101 20 104/73 96 10/09/16 09:00 Room Air Intake and Output 10/09/16 10/09/16 10/10/16 15:00 23:00 07:00 Intake Total 150 ml 50 ml 1700 ml Output Total 1100 ml 1100 ml Balance 150 ml -1050 ml 600 ml Exam Constitutional: alert, oriented Psych: nl mood/affect Head: normocephalic Eyes: EOMI, nl conjunctiva ENMT: nl external ears & nose Neck: non-tender Respiratory: clear to auscultation Cardiovascular: nl pulses Gastrointestinal: soft, tender (diffuse tenderness ) Extremities: normal pulses 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: nl speech Skin: nl turgor Lymph: nontender Results Result Diagram: 10/10/16 0440 10/10/16 0455 Results 24 hrs Laboratory Tests Test 10/10/16 04:40 10/10/16 04:55 Band Neutrophils % 21.0 H Basophils # 0.0 Basophils % 1.0 Blood Morphology Comment Eosinophils # 0.0 Eosinophils % 1.0 Hematocrit 26.4 L Hemoglobin 9.0 L Lymphocytes # 0.4 L Lymphocytes % 21.0 Mean Corpuscular Hemoglobin 29.1 Mean Corpuscular Hemoglobin Concent 34.2 Mean Corpuscular Volume 85.2 Mean Platelet Volume 8.4 Metamyelocytes # 0.1 Metamyelocytes % 4.0 H Monocytes # 0.3 Monocytes % 14.0 H Myelocytes # 0.1 Myelocytes % 7.0 H Neutrophils # 0.5 L Neutrophils % 26.0 L Nucleated Red Blood Cells # Nucleated Red Blood Cells % 7.0 H Platelet Count 78 L Platelet Estimate PLT APPEAR DECREASED Promyelocytes # 0.1 Promyelocytes % 5.0 H Red Blood Count 3.10 L Red Cell Distribution Width 15.8 H White Blood Count 2.0 L Alanine Aminotransferase (ALT/SGPT) 22 Albumin 2.4 L Albumin/Globulin Ratio 0.85 Alkaline Phosphatase 862 H Anion Gap 11 Aspartate Amino Transf (AST/SGOT) 26 Blood Urea Nitrogen 3 L Calcium Level 7.1 L Carbon Dioxide Level 23 Chloride Level 102 Creatinine 0.31 L Direct Bilirubin 0.00 Globulin 2.80 Glucose Level 86 Indirect Bilirubin 0.2 Potassium Level 3.7 Sodium Level 132 L Total Bilirubin 0.2 Total Protein 5.2 L Medications Medications Current Medications Bicalutamide (Casodex) 50 mg QAM PO Last administered on 10/10/16 09:25; Admin Dose 50 MG; Start 09/07/16 at 09:00 Docusate Sodium (Colace) 100 mg BID PRN PO CONSTIPATION Last administered on 05:22; Admin Dose 100 MG; Start 09/07/16 at 00:00 Escitalopram Oxalate (Lexapro) 5 mg DAILY PO Last administered on 10/10/16 09: 17; Admin Dose 5 MG; Start 09/07/16 at 09:00 Megestrol Acetate (Megace Susp) 400 mg BID PO Last administered on 10/10/16 22 :03; Admin Dose 400 MG; Start 09/07/16 at 09:00 Methylnaltrexone [place] (Relistor) 12 mg Q48H SC Last administered on 00:27; Admin Dose 12 MG; Start 09/07/16 at 00:00 Ondansetron HCl (Zofran Tab) 4 mg Q6H PRN PO NAUSEA AND/OR VOMITING Last administered on 10/05/16 19:46; Admin Dose 4 MG; Start 09/07/16 at 00:00 Acetaminophen (Tylenol Tab) 500 mg Q4H PRN PO PAIN AND OR ELEVATED TEMP Last administered on 10/05/16 15:37; Admin Dose 500 MG; Start 09/07/16 at 21:30 IV Flush (NS 10 ml) 10 ml PRN PRN IV IV PROTOCOL; Start 09/11/16 at 10:00 Calcium/Vitamin D (Oyster Shell/ Vit-D (500/200)) 1 tab BID PO Last administered on 10/10/16 22:03; Admin Dose 1 TAB; Start 09/12/16 at 14:00 IV Flush (NS 10 ml) 10 ml PRN PRN IV IV PROTOCOL; Start 09/21/16 at 12:00 Methadone HCl 2 mg 2 mg Q6 PO Last administered on 10/10/16 18:32; Admin Dose 2 MG; Start 09/23/16 at 18:00 Potassium Chloride/Sodium Chloride 1,000 ml @ 70 mls/hr [id number] IV Last administered on 10/10/16 01:44; Admin Dose 70 MLS/HR; Start 09/28/16 at 16:30 Ondansetron HCl/ Sodium Chloride (Zofran Inj/NS) 54 ml @ 216 mls/hr Q12H PRN IV NAUSEA AND/OR VOMITING; Start 09/29/16 at 22:00 Prednisone 5 mg 5 mg BID PO Last administered on 10/10/16 22:03; Admin Dose 5 MG; Start 09/29/16 at 21:00 Docetaxel 45 mg/ Sodium Chloride 100 ml @ 100 mls/hr Th@22 IV Last administered on 10/06/16 22:24; Admin Dose 100 MLS/HR; Start 10/06/16 at 22:00 ; Stop 10/27/16 at 22:59 Ondansetron HCl/ Dexamethasone/ Dextrose (Zofran Inj/ Decadron/D5W) 60 ml @ 252 mls/hr Th@2130 IV Last administered on 10/06/16 21:31; Admin Dose 252 MLS/ HR; Start 10/06/16 at 21:30; Stop 10/27/16 at 21:45 Hydromorphone HCl (Dilaudid) 1.5 mg Q3H PRN IV PAIN Last administered on 19:48; Admin Dose 1.5 MG; Start 10/07/16 at 03:00 Senna (Senokot) 2 tab BID PO Last administered on 10/09/16 09:27; Admin Dose 2 TAB; Start 10/07/16 at 03:00 Bisacodyl 10 mg 10 mg DAILY PRN [place] CONSTIPATION Last administered on 10/07/16 03:07; Admin Dose 10 MG; Start 10/07/16 at 03:00 Vancomycin HCl/ Sodium Chloride (Vancocin/NS) 150 ml @ 75 mls/hr Q8H IVPB Last administered on 10/10/16 19:45; Admin Dose 75 MLS/HR; Start 10/08/16 at 19 :00 Vancomycin HCl (Vancomycin Oral Syringe) 250 mg Q6 PO Last administered on 10/10 18:32; Admin Dose 250 MG; Start 10/10/16 at 18:00 JARAD CHOI MD Oct 10, 2016 23:15
[2016-10-11] MEDS: METHYLNALTREXONE 12 MG/0.6 ML VIAL SC SCH
[2016-10-11] MEDS: VANCOMYCIN HCL 250 MG/5ML POSYG PO SCH ×5 (00:15→23:42)
[2016-10-11] MEDS: NS + KCL 20 MEQ 1,000 ML IV SCH ×2 (00:16→19:01)
[2016-10-11] MEDS: METHADONE (1 MG/1 ML PO SYG) PO SCH ×6 (00:16→23:33)
[2016-10-11] MEDS: VANCOMYCIN 750 MG in SOD CHLORIDE 0.9% 150 ML IVPB SCH ×3 (02:59→20:30)
[2016-10-11] MEDS: HYDROmorphONE 2 MG/ML SYG IV PRN ×6 (02:59→23:33)
[2016-10-11 05:40] LABS: ALBUMIN 2.3 g/dl (3.3-4.9)
[2016-10-11 05:41] LABS: POTASSIUM 3.7 mmol/L (3.5-5.1)
[2016-10-11 05:43] LABS: ALBUMIN/GLOBULIN RATIO 0.82; BILIRUBIN,INDIRECT 0.2 mg/dl (0-1.1); BILIRUBIN,TOTAL 0.2 mg/dl (0.2-1.3); CREATININE 0.29 mg/dl (0.61-1.24); TOTAL PROTEIN 5.1 g/dl (6.1-8.1)
[2016-10-11 06:22] LABS: HEMATOCRIT 25.9 % (42.0-52.0); HEMOGLOBIN 8.9 g/dl (14.0-18.0); MEAN CORPUSCULAR HEMOGLOBIN 29.1 pg (29.0-33.0); MEAN CORPUSCULAR HGB CONC 34.6 g/dl (32.0-37.0); MEAN CORPUSCULAR VOLUME 84.3 fl (82.0-101.0); MEAN PLATELET VOLUME 8.4 fl (7.4-10.4); PLATELET COUNT 92 10^3/UL (140-440); RED BLOOD COUNT 3.07 10^6/ul (4.70-6.10); RED CELL DISTRIBUTION WIDTH 15.7 % (11.5-14.5); UNCORRECTED WBC 2.7 10^3/ul (4.8-10.8); WHITE BLOOD COUNT 2.7 10^3/ul (4.8-10.8)
[2016-10-11 06:29] LABS: CONDITION 1; LH ANALYZER COMMENTS 1
[2016-10-11] MEDS: PANTOPRAZOLE (EC) 40 MG TAB PO SCH (08:04)
[2016-10-11] MEDS: CALCIUM/VITAMIN D (500/200) TAB PO SCH ×2 (08:04→20:31)
[2016-10-11] MEDS: predniSONE 5 MG TAB PO SCH ×2 (08:04→20:31)
[2016-10-11] MEDS: MEGESTROL (40 MG/ML) 10ML CUP PO SCH ×2 (08:04→20:31)
[2016-10-11] MEDS: ESCITALOPRAM 10 MG TAB PO SCH (08:04)
[2016-10-11] MEDS: SENNA TAB PO SCH ×2 (08:04→20:31)
[2016-10-11] MEDS: BICALUTAMIDE 50 MG TAB PO SCH (08:27)
[2016-10-11 08:36] VITALS: BP 113/69; RESP 18
[2016-10-11 11:29] LABS: ANISOCYTOSIS 1+; LYMPHOCYTES # 0.6 10^3/ul (0.8-2.9); MONOCYTE # 0.4 10^3/ul (0.3-0.9); MYELOCYTES # 0.1
--- NOTE | 2016-10-11 13:34 | CONS ---
Date/Time of Note Date/Time of Note DATE: 10/11/16 TIME: 13:33 Assessment/Plan Assessment/Plan Chief Complaint/Hosp Course Awake, lying comfortably in bed, still having loose stools, afebrile, nad ANTIMICROBIALS: 1. IV vancomycin. 2. PO Vanco. INDWELLINGS: PICC line, White. PHYSICAL EXAMINATION: GENERAL: Cachectic elderly man who is in no distress. HEENT: Head atraumatic, normocephalic. Sclerae anicteric. Buccal mucosa dry. NECK: Supple, trachea midline. CHEST: Rise symmetrical. Breath sounds diminished to bases. HEART: S1, S2. ABDOMEN: Soft, bowel sounds present. EXTREMITIES: Without cyanosis. ASSESSMENT: 1. Methicillin-resistant Staphylococcus aureus urinary tract infection. 2. Clostridium difficile colitis. 3. Metastatic prostate carcinoma. 4. Pancytopenia. 5. Severe deconditioning. PLAN: The patient remains stable, still with loose stools==> started on PO Vanco yesterday, continue abx, repeat urine cx, oncology rec-s DW staff Problems: Consultation Date/Type/Reason Admit Date/Time Sep 06, 2016 at 22:01 Initial Consult Date 09/08/16 Type of Consultation: id Referring Provider: TIMOTHY MARAVILLA MD Exam/Review of Systems Vital Signs Vitals Vital Signs Date Time Temp Pulse Resp B/P Pulse Ox O2 Delivery O2 Flow Rate FiO2 10/11/16 08:36 98.5 101 18 113/69 99 10/09/16 09:00 Room Air Intake and Output 10/10/16 10/10/16 10/11/16 14:59 22:59 06:59 Intake Total 390 ml 800 ml Output Total 700 ml 600 ml Balance -310 ml 200 ml Results Result Diagram: 10/11/16 0445 10/11/16 0445 Results 24 hrs Laboratory Tests Test 10/11/16 04:45 Alanine Aminotransferase (ALT/SGPT) 23 Albumin 2.3 L Albumin/Globulin Ratio 0.82 Alkaline Phosphatase 679 H Anion Gap 11 Anisocytosis 1+ Aspartate Amino Transf (AST/SGOT) 26 Band Neutrophils % 22.0 H Blood Morphology Comment Blood Urea Nitrogen 3 L Calcium Level 7.0 L Carbon Dioxide Level 24 Chloride Level 102 Creatinine 0.29 L Direct Bilirubin 0.00 Globulin 2.80 Glucose Level 101 Hematocrit 25.9 L Hemoglobin 8.9 L Indirect Bilirubin 0.2 Lymphocytes # 0.6 L Lymphocytes % 22.0 Mean Corpuscular Hemoglobin 29.1 Mean Corpuscular Hemoglobin Concent 34.6 Mean Corpuscular Volume 84.3 Mean Platelet Volume 8.4 Metamyelocytes # 0.0 Metamyelocytes % 1.0 H Monocytes # 0.4 Monocytes % 15.0 H Myelocytes # 0.1 Myelocytes % 2.0 H Neutrophils # 1.0 L Neutrophils % 38.0 L Platelet Count 92 L Potassium Level 3.7 Red Blood Count 3.07 L Red Cell Distribution Width 15.7 H Sodium Level 133 L Total Bilirubin 0.2 Total Protein 5.1 L White Blood Count 2.7 #L Medications Medications Current Medications Bicalutamide (Casodex) 50 mg QAM PO Last administered on 10/11/16 08:27; Admin Dose 50 MG; Start 09/07/16 at 09:00 Docusate Sodium (Colace) 100 mg BID PRN PO CONSTIPATION Last administered on 05:22; Admin Dose 100 MG; Start 09/07/16 at 00:00 Escitalopram Oxalate (Lexapro) 5 mg DAILY PO Last administered on 10/11/16 08: 04; Admin Dose 5 MG; Start 09/07/16 at 09:00 Megestrol Acetate (Megace Susp) 400 mg BID PO Last administered on 10/11/16 08 :04; Admin Dose 400 MG; Start 09/07/16 at 09:00 Methylnaltrexone [place] (Relistor) 12 mg Q48H SC Last administered on 00:27; Admin Dose 12 MG; Start 09/07/16 at 00:00 Ondansetron HCl (Zofran Tab) 4 mg Q6H PRN PO NAUSEA AND/OR VOMITING Last administered on 10/05/16 19:46; Admin Dose 4 MG; Start 09/07/16 at 00:00 Acetaminophen (Tylenol Tab) 500 mg Q4H PRN PO PAIN AND OR ELEVATED TEMP Last administered on 10/05/16 15:37; Admin Dose 500 MG; Start 09/07/16 at 21:30 IV Flush (NS 10 ml) 10 ml PRN PRN IV IV PROTOCOL; Start 09/11/16 at 10:00 Calcium/Vitamin D ([place]/ Vit-D (500/200)) 1 tab BID PO Last administered on 10/11/16 08:04; Admin Dose 1 TAB; Start 09/12/16 at 14:00 IV Flush (NS 10 ml) 10 ml PRN PRN IV IV PROTOCOL; Start 09/21/16 at 12:00 Methadone HCl 2 mg 2 mg Q6 PO Last administered on 10/11/16 12:05; Admin Dose 2 MG; Start 09/23/16 at 18:00 Potassium Chloride/Sodium Chloride 1,000 ml @ 70 mls/hr [id number] IV Last administered on 10/11/16 00:16; Admin Dose 70 MLS/HR; Start 09/28/16 at 16:30 Ondansetron HCl/ Sodium Chloride (Zofran Inj/NS) 54 ml @ 216 mls/hr Q12H PRN IV NAUSEA AND/OR VOMITING; Start 09/29/16 at 22:00 Prednisone 5 mg 5 mg BID PO Last administered on 10/11/16 08:04; Admin Dose 5 MG; Start 09/29/16 at 21:00 Docetaxel 45 mg/ Sodium Chloride 100 ml @ 100 mls/hr Th@22 IV Last administered on 10/06/16 22:24; Admin Dose 100 MLS/HR; Start 10/06/16 at 22:00 ; Stop 10/27/16 at 22:59 Ondansetron HCl/ Dexamethasone/ Dextrose (Zofran Inj/ Decadron/D5W) 60 ml @ 252 mls/hr Th@2130 IV Last administered on 10/06/16 21:31; Admin Dose 252 MLS/ HR; Start 10/06/16 at 21:30; Stop 10/27/16 at 21:45 Hydromorphone HCl (Dilaudid) 1.5 mg Q3H PRN IV PAIN Last administered on 12:12; Admin Dose 1.5 MG; Start 10/07/16 at 03:00 Senna (Senokot) 2 tab BID PO Last administered on 10/09/16 09:27; Admin Dose 2 TAB; Start 10/07/16 at 03:00 Bisacodyl 10 mg 10 mg DAILY PRN [place] CONSTIPATION Last administered on 10/07/16 03:07; Admin Dose 10 MG; Start 10/07/16 at 03:00 Vancomycin HCl/ Sodium Chloride (Vancocin/NS) 150 ml @ 75 mls/hr Q8H IVPB Last administered on 10/11/16 11:53; Admin Dose 75 MLS/HR; Start 10/08/16 at 19 :00 Vancomycin HCl (Vancomycin Oral Syringe) 250 mg Q6 PO Last administered on 10/11 12:50; Admin Dose 250 MG; Start 10/10/16 at 18:00 Miscellaneous Information (*Rx Drug Level Order Reminder*) VANCO TROUGH @ 1, 800 ON... ONCE ONCE XX ; Start 10/11/16 at 18:00; Stop 10/11/16 at 18:01 EUNICE GUNTER NP Oct 11, 2016 13:34
--- NOTE | 2016-10-11 19:16 | PN ---
Date/Time of Note Date/Time of Note DATE: 10/11/16 TIME: 19:15 Assessment/Plan VTE Prophylaxis VTE Prophylaxis Intervention: SCD's Lines/Catheters IV Catheter Type (from Nrsg): PICC Line Central line still needed: Yes Urinary Cath still in place: Yes Reason Cath still needed: urinary retention Assessment/Plan Chief Complaint/Hosp Course ASSESSMENT AND PLAN: 1. Clostridium difficile colitis. Continue vancomycin by mouth and contact isolation. 2. Metastatic prostate cancer. Dr. Hernandez is following patient in oncology consultation. Continue chemotherapy and steroids. 3. Thrombocytopenia. Continue to monitor platelets. 4. Acute on chronic back pain. Dr. Ferguson is following the patient in pain management. Continue methadone and Dilaudid p.r.n. for breakthrough pain. 5. Anemia, this post blood transfusion, continue to monitor hemoglobin and hematocrit. 6. MRSA UTI, cont Vanco, Dr Schuler is following in infectious disease consultation. Continue Protonix for peptic ulcer disease prophylaxis. Further recommendations based on clinical course. Plan of care discussed with Dr. Nichols. Problems: Subjective 24 Hr Interval Summary Free Text/Dictation Patient had a diarrhea, poor appetite, no nausea vomiting, no fever. Exam/Review of Systems Vital Signs Vitals Vital Signs Date Time Temp Pulse Resp B/P Pulse Ox O2 Delivery O2 Flow Rate FiO2 10/11/16 08:36 98.5 101 18 113/69 99 10/09/16 09:00 Room Air Intake and Output 10/10/16 10/10/16 10/11/16 15:00 23:00 07:00 Intake Total 390 ml 800 ml Output Total 700 ml 600 ml Balance -310 ml 200 ml Exam GENERAL: Well-developed, cachectic male, currently is awake, alert. HEENT: Head is atraumatic, normocephalic. PERRLA. NECK: Supple. No mass, no thyromegaly. LUNGS: Clear bilaterally. No rhonchi, wheezes, rales noted. HEART: Normal S1, S2. No murmurs, gallops, clicks, rubs noted. ABDOMEN: Flat, soft, nondistended, nontender. Bowel sounds present. EXTREMITIES: No edema. SKIN: There is no rash, petechiae noted. NEUROLOGIC: The patient is awake, alert, and oriented x3. Results Result Diagram: 10/11/165 10/11/165 Results 24 hrs Laboratory Tests Test 10/11/16 04:45 10/11/16 17:50 Alanine Aminotransferase (ALT/SGPT) 23 Albumin 2.3 L Albumin/Globulin Ratio 0.82 Alkaline Phosphatase 679 H Anion Gap 11 Anisocytosis 1+ Aspartate Amino Transf (AST/SGOT) 26 Band Neutrophils % 22.0 H Blood Morphology Comment Blood Urea Nitrogen 3 L Calcium Level 7.0 L Carbon Dioxide Level 24 Chloride Level 102 Creatinine 0.29 L Direct Bilirubin 0.00 Globulin 2.80 Glucose Level 101 Hematocrit 25.9 L Hemoglobin 8.9 L Indirect Bilirubin 0.2 Lymphocytes # 0.6 L Lymphocytes % 22.0 Mean Corpuscular Hemoglobin 29.1 Mean Corpuscular Hemoglobin Concent 34.6 Mean Corpuscular Volume 84.3 Mean Platelet Volume 8.4 Metamyelocytes # 0.0 Metamyelocytes % 1.0 H Monocytes # 0.4 Monocytes % 15.0 H Myelocytes # 0.1 Myelocytes % 2.0 H Neutrophils # 1.0 L Neutrophils % 38.0 L Platelet Count 92 L Potassium Level 3.7 Red Blood Count 3.07 L Red Cell Distribution Width 15.7 H Sodium Level 133 L Total Bilirubin 0.2 Total Protein 5.1 L White Blood Count 2.7 #L Vancomycin Level Trough 14.9 Medications Medications Current Medications Bicalutamide (Casodex) 50 mg QAM PO Last administered on 10/11/16 08:27; Admin Dose 50 MG; Start 09/07/16 at 09:00 Docusate Sodium (Colace) 100 mg BID PRN PO CONSTIPATION Last administered on 05:22; Admin Dose 100 MG; Start 09/07/16 at 00:00 Escitalopram Oxalate (Lexapro) 5 mg DAILY PO Last administered on 10/11/16 08: 04; Admin Dose 5 MG; Start 09/07/16 at 09:00 Megestrol Acetate (Megace Susp) 400 mg BID PO Last administered on 10/11/16 08 :04; Admin Dose 400 MG; Start 09/07/16 at 09:00 Methylnaltrexone [place] (Relistor) 12 mg Q48H SC Last administered on 00:27; Admin Dose 12 MG; Start 09/07/16 at 00:00 Ondansetron HCl (Zofran Tab) 4 mg Q6H PRN PO NAUSEA AND/OR VOMITING Last administered on 10/05/16 19:46; Admin Dose 4 MG; Start 09/07/16 at 00:00 Acetaminophen (Tylenol Tab) 500 mg Q4H PRN PO PAIN AND OR ELEVATED TEMP Last administered on 10/05/16 15:37; Admin Dose 500 MG; Start 09/07/16 at 21:30 IV Flush (NS 10 ml) 10 ml PRN PRN IV IV PROTOCOL; Start 09/11/16 at 10:00 Calcium/Vitamin D (Oyster Shell/ Vit-D (500/200)) 1 tab BID PO Last administered on 10/11/16 08:04; Admin Dose 1 TAB; Start 09/12/16 at 14:00 IV Flush (NS 10 ml) 10 ml PRN PRN IV IV PROTOCOL; Start 09/21/16 at 12:00 Methadone HCl 2 mg 2 mg Q6 PO Last administered on 10/11/16 17:32; Admin Dose 2 MG; Start 09/23/16 at 18:00 Potassium Chloride/Sodium Chloride 1,000 ml @ 70 mls/hr [id number] IV Last administered on 10/11/16 19:01; Admin Dose 70 MLS/HR; Start 09/28/16 at 16:30 Ondansetron HCl/ Sodium Chloride (Zofran Inj/NS) 54 ml @ 216 mls/hr Q12H PRN IV NAUSEA AND/OR VOMITING; Start 09/29/16 at 22:00 Prednisone 5 mg 5 mg BID PO Last administered on 10/11/16 08:04; Admin Dose 5 MG; Start 09/29/16 at 21:00 Docetaxel 45 mg/ Sodium Chloride 100 ml @ 100 mls/hr Th@22 IV Last administered on 10/06/16 22:24; Admin Dose 100 MLS/HR; Start 10/06/16 at 22:00 ; Stop 10/27/16 at 22:59 Ondansetron HCl/ Dexamethasone/ Dextrose (Zofran Inj/ Decadron/D5W) 60 ml @ 252 mls/hr Th@2130 IV Last administered on 10/06/16 21:31; Admin Dose 252 MLS/ HR; Start 10/06/16 at 21:30; Stop 10/27/16 at 21:45 Hydromorphone HCl (Dilaudid) 1.5 mg Q3H PRN IV PAIN Last administered on 19:01; Admin Dose 1.5 MG; Start 10/07/16 at 03:00 Senna (Senokot) 2 tab BID PO Last administered on 10/09/16 09:27; Admin Dose 2 TAB; Start 10/07/16 at 03:00 Bisacodyl 10 mg 10 mg DAILY PRN [place] CONSTIPATION Last administered on 10/07/16 03:07; Admin Dose 10 MG; Start 10/07/16 at 03:00 Vancomycin HCl/ Sodium Chloride (Vancocin/NS) 150 ml @ 75 mls/hr Q8H IVPB Last administered on 10/11/16 11:53; Admin Dose 75 MLS/HR; Start 10/08/16 at 19 :00 Vancomycin HCl (Vancomycin Oral Syringe) 250 mg Q6 PO Last administered on 10/11 17:32; Admin Dose 250 MG; Start 10/10/16 at 18:00 SREE GRIFFITH Oct 11, 2016 19:16
[2016-10-11 20:29] VITALS: BP 109/75; RESP 20
--- NOTE | 2016-10-11 23:30 | CONS ---
Date/Time of Note Date/Time of Note DATE: 10/11/16 TIME: 23:29 Assessment/Plan Assessment/Plan Chief Complaint/Hosp Course Metastatic prostate cancer. POS CHEMO # 2 chemotherapy and steroids - PER PROTOCOL Chemotherapy Docetaxel (Taxotere) 30 mg/m2 IV over 30 minutes once per day on days 1, 8, 15, 22, 29 Prednisone (Sterapred) 5 mg PO BID on days 1 to 42 Supportive medications Dexamethasone (Decadron) 8 mg (route not specified) once 1 hour before Docetaxel (Taxotere) Antiemetics "according to local practice" 42-day cycle for up to 5 cycles ANEMIA POST PRBC MONITOR CLOSELY OBSERVE FOR BLEEDING AND HEMOLYSIS Thrombocytopenia. Continue to monitor platelets. transfuse as needed PANCYTOPENIA MONITOR DECONDITIONING PT Acute on chronic back pain. Dr. Ferguson is following the patient in pain management. Continue methadone and Dilaudid p.r.n. for breakthrough pain. Clostridium difficile colitis. Continue Flagyl and contact isolation- per ID Problems: Consultation Date/Type/Reason Admit Date/Time Sep 06, 2016 at 22:01 Initial Consult Date 09/08/16 Referring Provider: TIMOTHY MARAVILLA MD 24 HR Interval Summary Free Text/Dictation COUNT REVIEWED + DIARRHEA PAIN CONTROLLED Exam/Review of Systems Vital Signs Vitals Vital Signs Date Time Temp Pulse Resp B/P Pulse Ox O2 Delivery O2 Flow Rate FiO2 10/11/16 20:29 98.3 109 20 109/75 99 10/09/16 09:00 Room Air Intake and Output 10/10/16 10/10/16 10/11/16 15:00 23:00 07:00 Intake Total 390 ml 800 ml Output Total 700 ml 600 ml Balance -310 ml 200 ml Exam Constitutional: alert, oriented Psych: nl mood/affect Head: normocephalic Eyes: EOMI, nl conjunctiva ENMT: nl external ears & nose Neck: non-tender Respiratory: clear to auscultation Cardiovascular: nl pulses Gastrointestinal: soft, tender (diffuse tenderness ) Extremities: normal pulses 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: nl speech Skin: nl turgor Lymph: nontender Results Result Diagram: 10/11/16 0445 10/11/165 Results 24 hrs Laboratory Tests Test 10/11/16 04:45 10/11/16 17:50 Alanine Aminotransferase (ALT/SGPT) 23 Albumin 2.3 L Albumin/Globulin Ratio 0.82 Alkaline Phosphatase 679 H Anion Gap 11 Anisocytosis 1+ Aspartate Amino Transf (AST/SGOT) 26 Band Neutrophils % 22.0 H Blood Morphology Comment Blood Urea Nitrogen 3 L Calcium Level 7.0 L Carbon Dioxide Level 24 Chloride Level 102 Creatinine 0.29 L Direct Bilirubin 0.00 Globulin 2.80 Glucose Level 101 Hematocrit 25.9 L Hemoglobin 8.9 L Indirect Bilirubin 0.2 Lymphocytes # 0.6 L Lymphocytes % 22.0 Mean Corpuscular Hemoglobin 29.1 Mean Corpuscular Hemoglobin Concent 34.6 Mean Corpuscular Volume 84.3 Mean Platelet Volume 8.4 Metamyelocytes # 0.0 Metamyelocytes % 1.0 H Monocytes # 0.4 Monocytes % 15.0 H Myelocytes # 0.1 Myelocytes % 2.0 H Neutrophils # 1.0 L Neutrophils % 38.0 L Platelet Count 92 L Potassium Level 3.7 Red Blood Count 3.07 L Red Cell Distribution Width 15.7 H Sodium Level 133 L Total Bilirubin 0.2 Total Protein 5.1 L White Blood Count 2.7 #L Vancomycin Level Trough 14.9 Medications Medications Current Medications Bicalutamide (Casodex) 50 mg QAM PO Last administered on 10/11/16 08:27; Admin Dose 50 MG; Start 09/07/16 at 09:00 Docusate Sodium (Colace) 100 mg BID PRN PO CONSTIPATION Last administered on 05:22; Admin Dose 100 MG; Start 09/07/16 at 00:00 Escitalopram Oxalate (Lexapro) 5 mg DAILY PO Last administered on 10/11/16 08: 04; Admin Dose 5 MG; Start 09/07/16 at 09:00 Megestrol Acetate (Megace Susp) 400 mg BID PO Last administered on 10/11/16 20 :31; Admin Dose 400 MG; Start 09/07/16 at 09:00 Methylnaltrexone [place] (Relistor) 12 mg Q48H SC Last administered on 00:27; Admin Dose 12 MG; Start 09/07/16 at 00:00 Ondansetron HCl (Zofran Tab) 4 mg Q6H PRN PO NAUSEA AND/OR VOMITING Last administered on 10/05/16 19:46; Admin Dose 4 MG; Start 09/07/16 at 00:00 Acetaminophen (Tylenol Tab) 500 mg Q4H PRN PO PAIN AND OR ELEVATED TEMP Last administered on 10/05/16 15:37; Admin Dose 500 MG; Start 09/07/16 at 21:30 IV Flush (NS 10 ml) 10 ml PRN PRN IV IV PROTOCOL; Start 09/11/16 at 10:00 Calcium/Vitamin D (Oyster Shell/ Vit-D (500/200)) 1 tab BID PO Last administered on 10/11/16 20:31; Admin Dose 1 TAB; Start 09/12/16 at 14:00 IV Flush (NS 10 ml) 10 ml PRN PRN IV IV PROTOCOL; Start 09/21/16 at 12:00 Methadone HCl 2 mg 2 mg Q6 PO Last administered on 10/11/16 17:32; Admin Dose 2 MG; Start 09/23/16 at 18:00 Potassium Chloride/Sodium Chloride 1,000 ml @ 70 mls/hr [id number] IV Last administered on 10/11/16 19:01; Admin Dose 70 MLS/HR; Start 09/28/16 at 16:30 Ondansetron HCl/ Sodium Chloride (Zofran Inj/NS) 54 ml @ 216 mls/hr Q12H PRN IV NAUSEA AND/OR VOMITING; Start 09/29/16 at 22:00 Prednisone 5 mg 5 mg BID PO Last administered on 10/11/16 20:31; Admin Dose 5 MG; Start 09/29/16 at 21:00 Docetaxel 45 mg/ Sodium Chloride 100 ml @ 100 mls/hr Th@22 IV Last administered on 10/06/16 22:24; Admin Dose 100 MLS/HR; Start 10/06/16 at 22:00 ; Stop 10/27/16 at 22:59 Ondansetron HCl/ Dexamethasone/ Dextrose (Zofran Inj/ Decadron/D5W) 60 ml @ 252 mls/hr Th@2130 IV Last administered on 10/06/16 21:31; Admin Dose 252 MLS/ HR; Start 10/06/16 at 21:30; Stop 10/27/16 at 21:45 Hydromorphone HCl (Dilaudid) 1.5 mg Q3H PRN IV PAIN Last administered on 19:01; Admin Dose 1.5 MG; Start 10/07/16 at 03:00 Senna (Senokot) 2 tab BID PO Last administered on 10/11/16 20:31; Admin Dose 2 TAB; Start 10/07/16 at 03:00 Bisacodyl 10 mg 10 mg DAILY PRN [place] CONSTIPATION Last administered on 10/07/16 03:07; Admin Dose 10 MG; Start 10/07/16 at 03:00 Vancomycin HCl/ Sodium Chloride (Vancocin/NS) 150 ml @ 75 mls/hr Q8H IVPB Last administered on 10/11/16 20:30; Admin Dose 75 MLS/HR; Start 10/08/16 at 19 :00 Vancomycin HCl (Vancomycin Oral Syringe) 250 mg Q6 PO Last administered on 10/11 17:32; Admin Dose 250 MG; Start 10/10/16 at 18:00 JARAD CHOI MD Oct 11, 2016 23:29
[2016-10-12] MEDS: VANCOMYCIN 750 MG in SOD CHLORIDE 0.9% 150 ML IVPB SCH ×3 (02:58→18:19)
[2016-10-12] MEDS: HYDROmorphONE 2 MG/ML SYG IV PRN ×5 (04:07→20:47)
[2016-10-12] MEDS: METHADONE (1 MG/1 ML PO SYG) PO SCH ×4 (05:20→23:49)
[2016-10-12] MEDS: PANTOPRAZOLE (EC) 40 MG TAB PO SCH (05:20)
[2016-10-12] MEDS: VANCOMYCIN HCL 250 MG/5ML POSYG PO SCH ×4 (05:20→23:49)
[2016-10-12 05:26] LABS: HEMATOCRIT 26.5 % (42.0-52.0); HEMOGLOBIN 9.1 g/dl (14.0-18.0); MEAN CORPUSCULAR HEMOGLOBIN 28.9 pg (29.0-33.0); MEAN CORPUSCULAR HGB CONC 34.2 g/dl (32.0-37.0); MEAN CORPUSCULAR VOLUME 84.5 fl (82.0-101.0); MEAN PLATELET VOLUME 7.9 fl (7.4-10.4); PLATELET COUNT 93 10^3/UL (140-440); RED BLOOD COUNT 3.14 10^6/ul (4.70-6.10); RED CELL DISTRIBUTION WIDTH 15.5 % (11.5-14.5); UNCORRECTED WBC 4.2 10^3/ul (4.8-10.8); WHITE BLOOD COUNT 4.2 10^3/ul (4.8-10.8)
[2016-10-12 05:39] LABS: ALBUMIN 2.3 g/dl (3.3-4.9); POTASSIUM 3.4 mmol/L (3.5-5.1)
[2016-10-12 05:42] LABS: ALBUMIN/GLOBULIN RATIO 0.79; BILIRUBIN,INDIRECT 0.3 mg/dl (0-1.1); BILIRUBIN,TOTAL 0.3 mg/dl (0.2-1.3); CALCIUM 7.2 mg/dl (8.4-10.2); CREATININE 0.33 mg/dl (0.61-1.24); TOTAL PROTEIN 5.2 g/dl (6.1-8.1)
[2016-10-12 05:45] LABS: CONDITION 1; LH ANALYZER COMMENTS 1; SUSPECT 1
[2016-10-12 08:24] VITALS: BP 114/65; RESP 19
[2016-10-12] MEDS: NS + KCL 20 MEQ 1,000 ML IV SCH ×2 (09:24→12:16)
[2016-10-12] MEDS: ESCITALOPRAM 10 MG TAB PO SCH (09:25)
[2016-10-12] MEDS: SENNA TAB PO SCH ×2 (09:25→20:46)
[2016-10-12] MEDS: predniSONE 5 MG TAB PO SCH ×2 (09:25→20:46)
[2016-10-12] MEDS: CALCIUM/VITAMIN D (500/200) TAB PO SCH ×2 (09:25→20:45)
[2016-10-12] MEDS: BICALUTAMIDE 50 MG TAB PO SCH (09:26)
[2016-10-12] MEDS: MEGESTROL (40 MG/ML) 10ML CUP PO SCH ×2 (09:26→20:45)
--- NOTE | 2016-10-12 11:28 | CONS ---
Date/Time of Note Date/Time of Note DATE: 10/12/16 TIME: 11:28 Assessment/Plan Assessment/Plan Chief Complaint/Hosp Course Metastatic prostate cancer. POS CHEMO # 2 chemotherapy and steroids - PER PROTOCOL Chemotherapy Docetaxel (Taxotere) 30 mg/m2 IV over 30 minutes once per day on days 1, 8, 15, 22, 29 Prednisone (Sterapred) 5 mg PO BID on days 1 to 42 Supportive medications Dexamethasone (Decadron) 8 mg (route not specified) once 1 hour before Docetaxel (Taxotere) Antiemetics "according to local practice" 42-day cycle for up to 5 cycles ANEMIA POST PRBC MONITOR CLOSELY OBSERVE FOR BLEEDING AND HEMOLYSIS Thrombocytopenia. Continue to monitor platelets. transfuse as needed PANCYTOPENIA MONITOR DECONDITIONING PT Acute on chronic back pain. Dr. Ferguson is following the patient in pain management. Continue methadone and Dilaudid p.r.n. for breakthrough pain. Clostridium difficile colitis. Continue Flagyl and contact isolation- per ID Problems: Consultation Date/Type/Reason Admit Date/Time Sep 06, 2016 at 22:01 Initial Consult Date 09/08/16 Referring Provider: TIMOTHY MARAVILLA MD 24 HR Interval Summary Free Text/Dictation ALL NOTED NO NEW EVENTS + DIARRHEA + pain controlled Exam/Review of Systems Vital Signs Vitals Vital Signs Date Time Temp Pulse Resp B/P Pulse Ox O2 Delivery O2 Flow Rate FiO2 10/12/16 08:24 98.0 105 19 114/65 99 10/09/16 09:00 Room Air Intake and Output 10/11/16 10/11/16 10/12/16 15:00 23:00 07:00 Intake Total 1260 ml 770 ml Output Total 900 ml 900 ml Balance 360 ml -130 ml Exam Constitutional: alert, oriented Psych: nl mood/affect Head: normocephalic Eyes: EOMI, nl conjunctiva ENMT: nl external ears & nose Neck: non-tender Respiratory: clear to auscultation Cardiovascular: nl pulses Gastrointestinal: soft, tender (diffuse tenderness ) Extremities: normal pulses 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: nl speech Skin: nl turgor Lymph: nontender Results Result Diagram: 10/12/16 0435 10/12/16 0435 Results 24 hrs Laboratory Tests Test 10/11/16 17:50 10/12/16 04:35 Vancomycin Level Trough 14.9 Alanine Aminotransferase (ALT/SGPT) 23 Albumin 2.3 L Albumin/Globulin Ratio 0.79 Alkaline Phosphatase 648 H Anion Gap 11 Aspartate Amino Transf (AST/SGOT) 20 Blood Morphology Comment Blood Urea Nitrogen 2 L Calcium Level 7.2 L Carbon Dioxide Level 23 Chloride Level 102 Creatinine 0.33 L Direct Bilirubin 0.00 Globulin 2.90 Glucose Level 81 Hematocrit 26.5 L Hemoglobin 9.1 L Indirect Bilirubin 0.3 Mean Corpuscular Hemoglobin 28.9 L Mean Corpuscular Hemoglobin Concent 34.2 Mean Corpuscular Volume 84.5 Mean Platelet Volume 7.9 Platelet Count 93 L Potassium Level 3.4 L Red Blood Count 3.14 L Red Cell Distribution Width 15.5 H Sodium Level 133 L Total Bilirubin 0.3 Total Protein 5.2 L White Blood Count 4.2 #L Medications Medications Current Medications Bicalutamide (Casodex) 50 mg QAM PO Last administered on 10/12/16 09:26; Admin Dose 50 MG; Start 09/07/16 at 09:00 Docusate Sodium (Colace) 100 mg BID PRN PO CONSTIPATION Last administered on 05:22; Admin Dose 100 MG; Start 09/07/16 at 00:00 Escitalopram Oxalate (Lexapro) 5 mg DAILY PO Last administered on 10/12/16 09: 25; Admin Dose 5 MG; Start 09/07/16 at 09:00 Megestrol Acetate (Megace Susp) 400 mg BID PO Last administered on 10/12/16 09 :26; Admin Dose 400 MG; Start 09/07/16 at 09:00 Methylnaltrexone [place] (Relistor) 12 mg Q48H SC Last administered on 00:27; Admin Dose 12 MG; Start 09/07/16 at 00:00 Ondansetron HCl (Zofran Tab) 4 mg Q6H PRN PO NAUSEA AND/OR VOMITING Last administered on 10/05/16 19:46; Admin Dose 4 MG; Start 09/07/16 at 00:00 Acetaminophen (Tylenol Tab) 500 mg Q4H PRN PO PAIN AND OR ELEVATED TEMP Last administered on 10/05/16 15:37; Admin Dose 500 MG; Start 09/07/16 at 21:30 IV Flush (NS 10 ml) 10 ml PRN PRN IV IV PROTOCOL; Start 09/11/16 at 10:00 Calcium/Vitamin D (Oyster Shell/ Vit-D (500/200)) 1 tab BID PO Last administered on 10/12/16 09:25; Admin Dose 1 TAB; Start 09/12/16 at 14:00 IV Flush (NS 10 ml) 10 ml PRN PRN IV IV PROTOCOL; Start 09/21/16 at 12:00 Methadone HCl 2 mg 2 mg Q6 PO Last administered on 10/12/16 05:20; Admin Dose 2 MG; Start 09/23/16 at 18:00 Potassium Chloride/Sodium Chloride 1,000 ml @ 70 mls/hr [id number] IV Last administered on 10/11/16 19:01; Admin Dose 70 MLS/HR; Start 09/28/16 at 16:30 Ondansetron HCl/ Sodium Chloride (Zofran Inj/NS) 54 ml @ 216 mls/hr Q12H PRN IV NAUSEA AND/OR VOMITING; Start 09/29/16 at 22:00 Prednisone 5 mg 5 mg BID PO Last administered on 10/12/16 09:25; Admin Dose 5 MG; Start 09/29/16 at 21:00 Docetaxel 45 mg/ Sodium Chloride 100 ml @ 100 mls/hr Th@22 IV Last administered on 10/06/16 22:24; Admin Dose 100 MLS/HR; Start 10/06/16 at 22:00 ; Stop 10/27/16 at 22:59 Ondansetron HCl/ Dexamethasone/ Dextrose (Zofran Inj/ Decadron/D5W) 60 ml @ 252 mls/hr Th@2130 IV Last administered on 10/06/16 21:31; Admin Dose 252 MLS/ HR; Start 10/06/16 at 21:30; Stop 10/27/16 at 21:45 Hydromorphone HCl (Dilaudid) 1.5 mg Q3H PRN IV PAIN Last administered on 09:32; Admin Dose 1.5 MG; Start 10/07/16 at 03:00 Senna (Senokot) 2 tab BID PO Last administered on 10/12/16 09:25; Admin Dose 2 TAB; Start 10/07/16 at 03:00 Bisacodyl 10 mg 10 mg DAILY PRN [place] CONSTIPATION Last administered on 10/07/16 03:07; Admin Dose 10 MG; Start 10/07/16 at 03:00 Vancomycin HCl/ Sodium Chloride (Vancocin/NS) 150 ml @ 75 mls/hr Q8H IVPB Last administered on 10/12/16 02:58; Admin Dose 75 MLS/HR; Start 10/08/16 at 19 :00 Vancomycin HCl (Vancomycin Oral Syringe) 250 mg Q6 PO Last administered on 10/12 05:20; Admin Dose 250 MG; Start 10/10/16 at 18:00 JARAD CHOI MD Oct 12, 2016 11:28
[2016-10-12 11:49] LABS: LYMPHOCYTES # 0.6 10^3/ul (0.8-2.9); MONOCYTE # 0.4 10^3/ul (0.3-0.9); MYELOCYTES # 0.2; NEUTROPHIL # 2.2 10^3/ul (1.6-7.5)
[2016-10-12 11:50] LABS: ANISOCYTOSIS 1+; HYPOCHROMASIA 1+
[2016-10-12 11:51] LABS: PLATELET ESTIMATE PLT APPEAR DECREASED
--- NOTE | 2016-10-12 14:27 | CONS ---
Date/Time of Note Date/Time of Note DATE: 10/12/16 TIME: 14:26 Assessment/Plan Assessment/Plan Chief Complaint/Hosp Course No acute events, sleeping, lying comfortably in bed, still having loose stools, afebrile, nad ANTIMICROBIALS: 1. IV vancomycin. 2. PO Vanco. INDWELLINGS: PICC line, White. PHYSICAL EXAMINATION: GENERAL: Cachectic elderly man who is in no distress. HEENT: Head atraumatic, normocephalic. Sclerae anicteric. Buccal mucosa dry. NECK: Supple, trachea midline. CHEST: Rise symmetrical. Breath sounds diminished to bases. HEART: S1, S2. ABDOMEN: Soft, bowel sounds present. EXTREMITIES: Without cyanosis. ASSESSMENT: 1. Methicillin-resistant Staphylococcus aureus urinary tract infection. 2. Clostridium difficile colitis. 3. Metastatic prostate carcinoma. 4. Pancytopenia. 5. Severe deconditioning. PLAN: The patient remains stable, continue abx, f/u repeat urine cx, oncology rec-s [facility] staff Problems: Consultation Date/Type/Reason Admit Date/Time Sep 06, 2016 at 22:01 Initial Consult Date 09/08/16 Type of Consultation: id Referring Provider: TIMOTHY MARAVILLA MD Exam/Review of Systems Vital Signs Vitals Vital Signs Date Time Temp Pulse Resp B/P Pulse Ox O2 Delivery O2 Flow Rate FiO2 10/12/16 08:24 98.0 105 19 114/65 99 10/09/16 09:00 Room Air Intake and Output 10/11/16 10/11/16 10/12/16 15:00 23:00 07:00 Intake Total 1260 ml 770 ml Output Total 900 ml 900 ml Balance 360 ml -130 ml Results Result Diagram: 10/12/16 0435 10/12/16 0435 Results 24 hrs Laboratory Tests Test 10/11/16 17:50 10/12/16 04:35 Vancomycin Level Trough 14.9 Alanine Aminotransferase (ALT/SGPT) 23 Albumin 2.3 L Albumin/Globulin Ratio 0.79 Alkaline Phosphatase 648 H Anion Gap 11 Anisocytosis 1+ Aspartate Amino Transf (AST/SGOT) 20 Band Neutrophils % 10.0 H Blood Morphology Comment Blood Urea Nitrogen 2 L Calcium Level 7.2 L Carbon Dioxide Level 23 Chloride Level 102 Creatinine 0.33 L Direct Bilirubin 0.00 Globulin 2.90 Glucose Level 81 Hematocrit 26.5 L Hemoglobin 9.1 L Hypochromasia 1+ Indirect Bilirubin 0.3 Lymphocytes # 0.6 L Lymphocytes % 14.0 L Mean Corpuscular Hemoglobin 28.9 L Mean Corpuscular Hemoglobin Concent 34.2 Mean Corpuscular Volume 84.5 Mean Platelet Volume 7.9 Metamyelocytes # 0.0 Metamyelocytes % 1.0 H Monocytes # 0.4 Monocytes % 9.0 Myelocytes # 0.2 Myelocytes % 4.0 H Neutrophils # 2.2 Neutrophils % 52.0 Platelet Count 93 L Platelet Estimate PLT APPEAR DECREASED Potassium Level 3.4 L Reactive Lymphocytes % 10.0 Red Blood Count 3.14 L Red Cell Distribution Width 15.5 H Sodium Level 133 L Total Bilirubin 0.3 Total Protein 5.2 L White Blood Count 4.2 #L Medications Medications Current Medications Bicalutamide (Casodex) 50 mg QAM PO Last administered on 10/12/16 09:26; Admin Dose 50 MG; Start 09/07/16 at 09:00 Docusate Sodium (Colace) 100 mg BID PRN PO CONSTIPATION Last administered on 05:22; Admin Dose 100 MG; Start 09/07/16 at 00:00 Escitalopram Oxalate (Lexapro) 5 mg DAILY PO Last administered on 10/12/16 09: 25; Admin Dose 5 MG; Start 09/07/16 at 09:00 Megestrol Acetate (Megace Susp) 400 mg BID PO Last administered on 10/12/16 09 :26; Admin Dose 400 MG; Start 09/07/16 at 09:00 Methylnaltrexone [employer] (Relistor) 12 mg Q48H SC Last administered on 00:27; Admin Dose 12 MG; Start 09/07/16 at 00:00 Ondansetron HCl (Zofran Tab) 4 mg Q6H PRN PO NAUSEA AND/OR VOMITING Last administered on 10/05/16 19:46; Admin Dose 4 MG; Start 09/07/16 at 00:00 Acetaminophen (Tylenol Tab) 500 mg Q4H PRN PO PAIN AND OR ELEVATED TEMP Last administered on 10/05/16 15:37; Admin Dose 500 MG; Start 09/07/16 at 21:30 IV Flush (NS 10 ml) 10 ml PRN PRN IV IV PROTOCOL; Start 09/11/16 at 10:00 Calcium/Vitamin D (Oyster Shell/ Vit-D (500/200)) 1 tab BID PO Last administered on 10/12/16 09:25; Admin Dose 1 TAB; Start 09/12/16 at 14:00 IV Flush (NS 10 ml) 10 ml PRN PRN IV IV PROTOCOL; Start 09/21/16 at 12:00 Methadone HCl 2 mg 2 mg Q6 PO Last administered on 10/12/16 12:15; Admin Dose 2 MG; Start 09/23/16 at 18:00 Potassium Chloride/Sodium Chloride 1,000 ml @ 70 mls/hr [id number] IV Last administered on 10/12/16 12:16; Admin Dose 70 MLS/HR; Start 09/28/16 at 16:30 Ondansetron HCl/ Sodium Chloride (Zofran Inj/NS) 54 ml @ 216 mls/hr Q12H PRN IV NAUSEA AND/OR VOMITING; Start 09/29/16 at 22:00 Prednisone 5 mg 5 mg BID PO Last administered on 10/12/16 09:25; Admin Dose 5 MG; Start 09/29/16 at 21:00 Docetaxel 45 mg/ Sodium Chloride 100 ml @ 100 mls/hr Th@22 IV Last administered on 10/06/16 22:24; Admin Dose 100 MLS/HR; Start 10/06/16 at 22:00 ; Stop 10/27/16 at 22:59 Ondansetron HCl/ Dexamethasone/ Dextrose (Zofran Inj/ Decadron/D5W) 60 ml @ 252 mls/hr Th@2130 IV Last administered on 10/06/16 21:31; Admin Dose 252 MLS/ HR; Start 10/06/16 at 21:30; Stop 10/27/16 at 21:45 Hydromorphone HCl (Dilaudid) 1.5 mg Q3H PRN IV PAIN Last administered on 12:21; Admin Dose 1.5 MG; Start 10/07/16 at 03:00 Senna (Senokot) 2 tab BID PO Last administered on 10/12/16 09:25; Admin Dose 2 TAB; Start 10/07/16 at 03:00 Bisacodyl 10 mg 10 mg DAILY PRN [place] CONSTIPATION Last administered on 10/07/16 03:07; Admin Dose 10 MG; Start 10/07/16 at 03:00 Vancomycin HCl/ Sodium Chloride (Vancocin/NS) 150 ml @ 75 mls/hr Q8H IVPB Last administered on 10/12/16 12:16; Admin Dose 75 MLS/HR; Start 10/08/16 at 19 :00 Vancomycin HCl (Vancomycin Oral Syringe) 250 mg Q6 PO Last administered on 10/12 12:15; Admin Dose 250 MG; Start 10/10/16 at 18:00 EUNICE GUNTER NP Oct 12, 2016 14:27
[2016-10-12 19:00] VITALS: BP 112/70; RESP 18
--- NOTE | 2016-10-12 19:19 | PN ---
Date/Time of Note Date/Time of Note DATE: 10/12/16 TIME: 19:18 Assessment/Plan VTE Prophylaxis VTE Prophylaxis Intervention: SCD's Lines/Catheters IV Catheter Type (from Nrsg): PICC Line Central line still needed: Yes Urinary Cath still in place: Yes Reason Cath still needed: urinary retention Assessment/Plan Chief Complaint/Hosp Course ASSESSMENT AND PLAN: 1. Clostridium difficile colitis. Continue vancomycin by mouth and contact isolation. 2. Metastatic prostate cancer. Dr. Hernandez is following patient in oncology consultation. Continue chemotherapy and steroids. 3. Thrombocytopenia. Continue to monitor platelets. 4. Acute on chronic back pain. Dr. Ferguson is following the patient in pain management. Continue methadone and Dilaudid p.r.n. for breakthrough pain. 5. Anemia, this post blood transfusion, continue to monitor hemoglobin and hematocrit. 6. MRSA UTI, cont Vanco, Dr Schuler is following in infectious disease consultation. Continue Protonix for peptic ulcer disease prophylaxis. Further recommendations based on clinical course. Plan of care discussed with Dr. Nichols. Problems: Subjective 24 Hr Interval Summary Free Text/Dictation No fever nausea vomiting, pain is well controlled. Exam/Review of Systems Vital Signs Vitals Vital Signs Date Time Temp Pulse Resp B/P Pulse Ox O2 Delivery O2 Flow Rate FiO2 10/12/16 08:24 98.0 105 19 114/65 99 10/09/16 09:00 Room Air Intake and Output 10/11/16 10/11/16 10/12/16 15:00 23:00 07:00 Intake Total 1260 ml 770 ml Output Total 900 ml 900 ml Balance 360 ml -130 ml Exam GENERAL: Well-developed, cachectic male, currently is awake, alert. HEENT: Head is atraumatic, normocephalic. PERRLA. NECK: Supple. No mass, no thyromegaly. LUNGS: Clear bilaterally. No rhonchi, wheezes, rales noted. HEART: Normal S1, S2. No murmurs, gallops, clicks, rubs noted. ABDOMEN: Flat, soft, nondistended, nontender. Bowel sounds present. EXTREMITIES: No edema. SKIN: There is no rash, petechiae noted. NEUROLOGIC: The patient is awake, alert, and oriented x3. Results Result Diagram: 10/12/1643410/12/16434 Results 24 hrs Laboratory Tests Test 10/12/16 04:35 Alanine Aminotransferase (ALT/SGPT) 23 Albumin 2.3 L Albumin/Globulin Ratio 0.79 Alkaline Phosphatase 648 H Anion Gap 11 Anisocytosis 1+ Aspartate Amino Transf (AST/SGOT) 20 Band Neutrophils % 10.0 H Blood Morphology Comment Blood Urea Nitrogen 2 L Calcium Level 7.2 L Carbon Dioxide Level 23 Chloride Level 102 Creatinine 0.33 L Direct Bilirubin 0.00 Globulin 2.90 Glucose Level 81 Hematocrit 26.5 L Hemoglobin 9.1 L Hypochromasia 1+ Indirect Bilirubin 0.3 Lymphocytes # 0.6 L Lymphocytes % 14.0 L Mean Corpuscular Hemoglobin 28.9 L Mean Corpuscular Hemoglobin Concent 34.2 Mean Corpuscular Volume 84.5 Mean Platelet Volume 7.9 Metamyelocytes # 0.0 Metamyelocytes % 1.0 H Monocytes # 0.4 Monocytes % 9.0 Myelocytes # 0.2 Myelocytes % 4.0 H Neutrophils # 2.2 Neutrophils % 52.0 Platelet Count 93 L Platelet Estimate PLT APPEAR DECREASED Potassium Level 3.4 L Reactive Lymphocytes % 10.0 Red Blood Count 3.14 L Red Cell Distribution Width 15.5 H Sodium Level 133 L Total Bilirubin 0.3 Total Protein 5.2 L White Blood Count 4.2 #L Medications Medications Current Medications Bicalutamide (Casodex) 50 mg QAM PO Last administered on 10/12/16 09:26; Admin Dose 50 MG; Start 09/07/16 at 09:00 Docusate Sodium (Colace) 100 mg BID PRN PO CONSTIPATION Last administered on 05:22; Admin Dose 100 MG; Start 09/07/16 at 00:00 Escitalopram Oxalate (Lexapro) 5 mg DAILY PO Last administered on 10/12/16 09: 25; Admin Dose 5 MG; Start 09/07/16 at 09:00 Megestrol Acetate (Megace Susp) 400 mg BID PO Last administered on 10/12/16 09 :26; Admin Dose 400 MG; Start 09/07/16 at 09:00 Methylnaltrexone [place] (Relistor) 12 mg Q48H SC Last administered on 00:27; Admin Dose 12 MG; Start 09/07/16 at 00:00 Ondansetron HCl (Zofran Tab) 4 mg Q6H PRN PO NAUSEA AND/OR VOMITING Last administered on 10/05/16 19:46; Admin Dose 4 MG; Start 09/07/16 at 00:00 Acetaminophen (Tylenol Tab) 500 mg Q4H PRN PO PAIN AND OR ELEVATED TEMP Last administered on 10/05/16 15:37; Admin Dose 500 MG; Start 09/07/16 at 21:30 IV Flush (NS 10 ml) 10 ml PRN PRN IV IV PROTOCOL; Start 09/11/16 at 10:00 Calcium/Vitamin D (Oyster Shell/ Vit-D (500/200)) 1 tab BID PO Last administered on 10/12/16 09:25; Admin Dose 1 TAB; Start 09/12/16 at 14:00 IV Flush (NS 10 ml) 10 ml PRN PRN IV IV PROTOCOL; Start 09/21/16 at 12:00 Methadone HCl 2 mg 2 mg Q6 PO Last administered on 10/12/16 18:18; Admin Dose 2 MG; Start 09/23/16 at 18:00 Potassium Chloride/Sodium Chloride 1,000 ml @ 70 mls/hr [id number] IV Last administered on 10/12/16 12:16; Admin Dose 70 MLS/HR; Start 09/28/16 at 16:30 Ondansetron HCl/ Sodium Chloride (Zofran Inj/NS) 54 ml @ 216 mls/hr Q12H PRN IV NAUSEA AND/OR VOMITING; Start 09/29/16 at 22:00 Prednisone 5 mg 5 mg BID PO Last administered on 10/12/16 09:25; Admin Dose 5 MG; Start 09/29/16 at 21:00 Docetaxel 45 mg/ Sodium Chloride 100 ml @ 100 mls/hr Th@22 IV Last administered on 10/06/16 22:24; Admin Dose 100 MLS/HR; Start 10/06/16 at 22:00 ; Stop 10/27/16 at 22:59 Ondansetron HCl/ Dexamethasone/ Dextrose (Zofran Inj/ Decadron/D5W) 60 ml @ 252 mls/hr Th@2130 IV Last administered on 10/06/16 21:31; Admin Dose 252 MLS/ HR; Start 10/06/16 at 21:30; Stop 10/27/16 at 21:45 Hydromorphone HCl (Dilaudid) 1.5 mg Q3H PRN IV PAIN Last administered on 16:48; Admin Dose 1.5 MG; Start 10/07/16 at 03:00 Senna (Senokot) 2 tab BID PO Last administered on 10/12/16 09:25; Admin Dose 2 TAB; Start 10/07/16 at 03:00 Bisacodyl 10 mg 10 mg DAILY PRN [place] CONSTIPATION Last administered on 10/07/16 03:07; Admin Dose 10 MG; Start 10/07/16 at 03:00 Vancomycin HCl/ Sodium Chloride (Vancocin/NS) 150 ml @ 75 mls/hr Q8H IVPB Last administered on 10/12/16 18:19; Admin Dose 75 MLS/HR; Start 10/08/16 at 19 :00 Vancomycin HCl (Vancomycin Oral Syringe) 250 mg Q6 PO Last administered on 10/12 18:18; Admin Dose 250 MG; Start 10/10/16 at 18:00 SREE GRIFFITH Oct 12, 2016 19:19
[2016-10-12] MEDS: METHYLNALTREXONE 12 MG/0.6 ML VIAL SC SCH (23:37)
[2016-10-13] VITALS (8 sets, daily range): BP systolic 106–111; BP diastolic 62–71; PULSE 81–99; RESP 16–18
[2016-10-13] MEDS: HYDROmorphONE 2 MG/ML SYG IV PRN ×6 (02:23→21:44)
[2016-10-13] MEDS: VANCOMYCIN 750 MG in SOD CHLORIDE 0.9% 150 ML IVPB SCH ×3 (02:23→18:33)
[2016-10-13] MEDS: PANTOPRAZOLE (EC) 40 MG TAB PO SCH (05:21)
[2016-10-13] MEDS: VANCOMYCIN HCL 250 MG/5ML POSYG PO SCH ×3 (05:21→17:56)
[2016-10-13 05:27] LABS: BASOPHILS % 0.5 % (0.0-2.0); HEMATOCRIT 24.6 % (42.0-52.0); HEMOGLOBIN 8.5 g/dl (14.0-18.0); LYMPHOCYTES # 0.6 10^3/ul (0.8-2.9); LYMPHOCYTES % 11.8 % (15.0-51.0); MEAN CORPUSCULAR HEMOGLOBIN 29.3 pg (29.0-33.0); MEAN CORPUSCULAR HGB CONC 34.5 g/dl (32.0-37.0); MEAN CORPUSCULAR VOLUME 84.9 fl (82.0-101.0); MEAN PLATELET VOLUME 7.8 fl (7.4-10.4); MONOCYTE # 0.4 10^3/ul (0.3-0.9); MONOCYTES % 8.6 % (0.0-11.0); NEUTROPHILS % 79.1 % (39.0-77.0); PLATELET COUNT 98 10^3/UL (140-440); RED BLOOD COUNT 2.89 10^6/ul (4.70-6.10); RED CELL DISTRIBUTION WIDTH 15.8 % (11.5-14.5)
[2016-10-13 05:34] LABS: ALBUMIN 2.3 g/dl (3.3-4.9)
[2016-10-13 05:35] LABS: POTASSIUM 3.2 mmol/L (3.5-5.1)
[2016-10-13 05:37] LABS: ALBUMIN/GLOBULIN RATIO 0.88; BILIRUBIN,INDIRECT 0.2 mg/dl (0-1.1); BILIRUBIN,TOTAL 0.2 mg/dl (0.2-1.3); CREATININE 0.29 mg/dl (0.61-1.24); TOTAL PROTEIN 4.9 g/dl (6.1-8.1)
[2016-10-13 05:38] LABS: CALCIUM 7.1 mg/dl (8.4-10.2)
[2016-10-13] MEDS: METHADONE (1 MG/1 ML PO SYG) PO SCH ×3 (06:00→17:56)
[2016-10-13 06:16] LABS: CONDITION 1; LH ANALYZER COMMENTS 1
[2016-10-13] MEDS: predniSONE 5 MG TAB PO SCH ×2 (09:22→20:35)
[2016-10-13] MEDS: ESCITALOPRAM 10 MG TAB PO SCH (09:22)
[2016-10-13] MEDS: CALCIUM/VITAMIN D (500/200) TAB PO SCH ×2 (09:22→20:35)
[2016-10-13] MEDS: MEGESTROL (40 MG/ML) 10ML CUP PO SCH ×2 (09:23→20:40)
[2016-10-13] MEDS: SENNA TAB PO SCH ×2 (09:23→20:35)
[2016-10-13] MEDS: BICALUTAMIDE 50 MG TAB PO SCH (09:29)
[2016-10-13] MEDS: NS + KCL 20 MEQ 1,000 ML IV SCH (11:45)
--- NOTE | 2016-10-13 13:20 | CONS ---
Date/Time of Note Date/Time of Note DATE: 10/13/16 TIME: 13:19 Assessment/Plan Assessment/Plan Chief Complaint/Hosp Course No acute events, alert, lying comfortably in bed, still having loose stools, afebrile, nad ANTIMICROBIALS: 1. IV vancomycin. 2. PO Vanco. INDWELLINGS: PICC line, White. PHYSICAL EXAMINATION: GENERAL: Cachectic elderly man who is in no distress. HEENT: Head atraumatic, normocephalic. Sclerae anicteric. Buccal mucosa dry. NECK: Supple, trachea midline. CHEST: Rise symmetrical. Breath sounds diminished to bases. HEART: S1, S2. ABDOMEN: Soft, bowel sounds present. EXTREMITIES: Without cyanosis. ASSESSMENT: 1. Methicillin-resistant Staphylococcus aureus urinary tract infection. 2. Clostridium difficile colitis. 3. Metastatic prostate carcinoma. 4. Pancytopenia. 5. Severe deconditioning. PLAN: The patient remains stable, pending repeat urine cx, continue abx, oncology rec-s [facility] staff Problems: Consultation Date/Type/Reason Admit Date/Time Sep 06, 2016 at 22:01 Initial Consult Date 09/08/16 Type of Consultation: id Referring Provider: TIMOTHY MARAVILLA MD Exam/Review of Systems Vital Signs Vitals Vital Signs Date Time Temp Pulse Resp B/P Pulse Ox O2 Delivery O2 Flow Rate FiO2 10/13/16 09:36 99 107/66 10/13/16 07:26 97.7 16 94 10/09/16 09:00 Room Air Intake and Output 10/12/16 10/12/16 10/13/16 15:00 23:00 07:00 Intake Total 1410 ml 950 ml Output Total 400 ml 1100 ml Balance 1010 ml -150 ml Results Result Diagram: 10/13/16 0428 10/13/16 0420 Results 24 hrs Laboratory Tests Test 10/13/16 04:20 10/13/16 04:28 Alanine Aminotransferase (ALT/SGPT) 23 Albumin 2.3 L Albumin/Globulin Ratio 0.88 Alkaline Phosphatase 609 H Anion Gap 11 Aspartate Amino Transf (AST/SGOT) 18 Blood Urea Nitrogen 2 L Calcium Level 7.1 L Carbon Dioxide Level 25 Chloride Level 101 Creatinine 0.29 L Direct Bilirubin 0.00 Globulin 2.60 Glucose Level 84 Indirect Bilirubin 0.2 Potassium Level 3.2 L Sodium Level 134 L Total Bilirubin 0.2 Total Protein 4.9 L Basophils # 0.0 Basophils % 0.5 Blood Morphology Comment Eosinophils # 0.0 Eosinophils % 0.0 Hematocrit 24.6 L Hemoglobin 8.5 L Lymphocytes # 0.6 L Lymphocytes % 11.8 L Mean Corpuscular Hemoglobin 29.3 Mean Corpuscular Hemoglobin Concent 34.5 Mean Corpuscular Volume 84.9 Mean Platelet Volume 7.8 Monocytes # 0.4 Monocytes % 8.6 Neutrophils # 4.0 Neutrophils % 79.1 H Nucleated Red Blood Cells # 0.0 Nucleated Red Blood Cells % 0.0 Platelet Count 98 L Red Blood Count 2.89 L Red Cell Distribution Width 15.8 H White Blood Count 5.0 Medications Medications Current Medications Bicalutamide (Casodex) 50 mg QAM PO Last administered on 10/13/16 09:29; Admin Dose 50 MG; Start 09/07/16 at 09:00 Docusate Sodium (Colace) 100 mg BID PRN PO CONSTIPATION Last administered on 05:22; Admin Dose 100 MG; Start 09/07/16 at 00:00 Escitalopram Oxalate (Lexapro) 5 mg DAILY PO Last administered on 10/13/16 09: 22; Admin Dose 5 MG; Start 09/07/16 at 09:00 Megestrol Acetate (Megace Susp) 400 mg BID PO Last administered on 10/13/16 09 :23; Admin Dose 400 MG; Start 09/07/16 at 09:00 Methylnaltrexone [place] (Relistor) 12 mg Q48H SC Last administered on 00:27; Admin Dose 12 MG; Start 09/07/16 at 00:00 Ondansetron HCl (Zofran Tab) 4 mg Q6H PRN PO NAUSEA AND/OR VOMITING Last administered on 10/05/16 19:46; Admin Dose 4 MG; Start 09/07/16 at 00:00 Acetaminophen (Tylenol Tab) 500 mg Q4H PRN PO PAIN AND OR ELEVATED TEMP Last administered on 10/05/16 15:37; Admin Dose 500 MG; Start 09/07/16 at 21:30 IV Flush (NS 10 ml) 10 ml PRN PRN IV IV PROTOCOL; Start 09/11/16 at 10:00 Calcium/Vitamin D (Oyster Shell/ Vit-D (500/200)) 1 tab BID PO Last administered on 10/13/16 09:22; Admin Dose 1 TAB; Start 09/12/16 at 14:00 IV Flush (NS 10 ml) 10 ml PRN PRN IV IV PROTOCOL; Start 09/21/16 at 12:00 Methadone HCl 2 mg 2 mg Q6 PO Last administered on 10/13/16 11:44; Admin Dose 2 MG; Start 09/23/16 at 18:00 Potassium Chloride/Sodium Chloride 1,000 ml @ 70 mls/hr [id number] IV Last administered on 10/13/16 11:45; Admin Dose 70 MLS/HR; Start 09/28/16 at 16:30 Ondansetron HCl/ Sodium Chloride (Zofran Inj/NS) 54 ml @ 216 mls/hr Q12H PRN IV NAUSEA AND/OR VOMITING; Start 09/29/16 at 22:00 Prednisone 5 mg 5 mg BID PO Last administered on 10/13/16 09:22; Admin Dose 5 MG; Start 09/29/16 at 21:00 Docetaxel 45 mg/ Sodium Chloride 100 ml @ 100 mls/hr Th@22 IV Last administered on 10/06/16 22:24; Admin Dose 100 MLS/HR; Start 10/06/16 at 22:00 ; Stop 10/27/16 at 22:59 Ondansetron HCl/ Dexamethasone/ Dextrose (Zofran Inj/ Decadron/D5W) 60 ml @ 252 mls/hr Th@2130 IV Last administered on 10/06/16 21:31; Admin Dose 252 MLS/ HR; Start 10/06/16 at 21:30; Stop 10/27/16 at 21:45 Hydromorphone HCl (Dilaudid) 1.5 mg Q3H PRN IV PAIN Last administered on 09:31; Admin Dose 1.5 MG; Start 10/07/16 at 03:00 Senna (Senokot) 2 tab BID PO Last administered on 10/13/16 09:23; Admin Dose 2 TAB; Start 10/07/16 at 03:00 Bisacodyl 10 mg 10 mg DAILY PRN [place] CONSTIPATION Last administered on 10/07/16 03:07; Admin Dose 10 MG; Start 10/07/16 at 03:00 Vancomycin HCl/ Sodium Chloride (Vancocin/NS) 150 ml @ 75 mls/hr Q8H IVPB Last administered on 10/13/16 12:34; Admin Dose 75 MLS/HR; Start 10/08/16 at 19 :00 Vancomycin HCl (Vancomycin Oral Syringe) 250 mg Q6 PO Last administered on 10/13 11:44; Admin Dose 250 MG; Start 10/10/16 at 18:00 EUNICE GUNTER NP Oct 13, 2016 13:20
--- NOTE | 2016-10-13 18:02 | CONS ---
Date/Time of Note Date/Time of Note DATE: 10/13/16 TIME: 18:02 Assessment/Plan Assessment/Plan Chief Complaint/Hosp Course Metastatic prostate cancer. POS CHEMO # 2 chemotherapy and steroids - PER PROTOCOL Chemotherapy Docetaxel (Taxotere) 30 mg/m2 IV over 30 minutes once per day on days 1, 8, 15, 22, 29 Prednisone (Sterapred) 5 mg PO BID on days 1 to 42 Supportive medications Dexamethasone (Decadron) 8 mg (route not specified) once 1 hour before Docetaxel (Taxotere) Antiemetics "according to local practice" 42-day cycle for up to 5 cycles ANEMIA POST PRBC MONITOR CLOSELY OBSERVE FOR BLEEDING AND HEMOLYSIS Thrombocytopenia. Continue to monitor platelets. transfuse as needed PANCYTOPENIA MONITOR DECONDITIONING PT Acute on chronic back pain. Dr. Ferguson is following the patient in pain management. Continue methadone and Dilaudid p.r.n. for breakthrough pain. Clostridium difficile colitis. Continue Flagyl and contact isolation- per ID Problems: Consultation Date/Type/Reason Admit Date/Time Sep 06, 2016 at 22:01 Initial Consult Date 09/08/16 Type of Consultation: hemeon Referring Provider: TIMOTHY MARAVILLA MD 24 HR Interval Summary Free Text/Dictation ALL NOTED NO NEW EVENTS POST CHEMO COUNT REVIEWED Exam/Review of Systems Vital Signs Vitals Vital Signs Date Time Temp Pulse Resp B/P Pulse Ox O2 Delivery O2 Flow Rate FiO2 10/13/16 09:36 99 107/66 10/13/16 07:26 97.7 16 94 10/09/16 09:00 Room Air Intake and Output 10/12/16 10/12/16 10/13/16 15:00 23:00 07:00 Intake Total 1410 ml 950 ml Output Total 400 ml 1100 ml Balance 1010 ml -150 ml Exam Constitutional: alert, oriented Psych: nl mood/affect Head: normocephalic Eyes: EOMI, nl conjunctiva ENMT: nl external ears & nose Neck: non-tender Respiratory: clear to auscultation Cardiovascular: nl pulses Gastrointestinal: soft, tender (diffuse tenderness ) Extremities: normal pulses 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: nl speech Skin: nl turgor Lymph: nontender Results Result Diagram: 10/13/16 0428 10/13/16419 Results 24 hrs Laboratory Tests Test 10/13/16 04:20 10/13/16 04:28 Alanine Aminotransferase (ALT/SGPT) 23 Albumin 2.3 L Albumin/Globulin Ratio 0.88 Alkaline Phosphatase 609 H Anion Gap 11 Aspartate Amino Transf (AST/SGOT) 18 Blood Urea Nitrogen 2 L Calcium Level 7.1 L Carbon Dioxide Level 25 Chloride Level 101 Creatinine 0.29 L Direct Bilirubin 0.00 Globulin 2.60 Glucose Level 84 Indirect Bilirubin 0.2 Potassium Level 3.2 L Sodium Level 134 L Total Bilirubin 0.2 Total Protein 4.9 L Basophils # 0.0 Basophils % 0.5 Blood Morphology Comment Eosinophils # 0.0 Eosinophils % 0.0 Hematocrit 24.6 L Hemoglobin 8.5 L Lymphocytes # 0.6 L Lymphocytes % 11.8 L Mean Corpuscular Hemoglobin 29.3 Mean Corpuscular Hemoglobin Concent 34.5 Mean Corpuscular Volume 84.9 Mean Platelet Volume 7.8 Monocytes # 0.4 Monocytes % 8.6 Neutrophils # 4.0 Neutrophils % 79.1 H Nucleated Red Blood Cells # 0.0 Nucleated Red Blood Cells % 0.0 Platelet Count 98 L Red Blood Count 2.89 L Red Cell Distribution Width 15.8 H White Blood Count 5.0 Medications Medications Current Medications Bicalutamide (Casodex) 50 mg QAM PO Last administered on 10/13/16 09:29; Admin Dose 50 MG; Start 09/07/16 at 09:00 Docusate Sodium (Colace) 100 mg BID PRN PO CONSTIPATION Last administered on 05:22; Admin Dose 100 MG; Start 09/07/16 at 00:00 Escitalopram Oxalate (Lexapro) 5 mg DAILY PO Last administered on 10/13/16 09: 22; Admin Dose 5 MG; Start 09/07/16 at 09:00 Megestrol Acetate (Megace Susp) 400 mg BID PO Last administered on 10/13/16 09 :23; Admin Dose 400 MG; Start 09/07/16 at 09:00 Methylnaltrexone [place] (Relistor) 12 mg Q48H SC Last administered on 00:27; Admin Dose 12 MG; Start 09/07/16 at 00:00 Ondansetron HCl (Zofran Tab) 4 mg Q6H PRN PO NAUSEA AND/OR VOMITING Last administered on 10/05/16 19:46; Admin Dose 4 MG; Start 09/07/16 at 00:00 Acetaminophen (Tylenol Tab) 500 mg Q4H PRN PO PAIN AND OR ELEVATED TEMP Last administered on 10/05/16 15:37; Admin Dose 500 MG; Start 09/07/16 at 21:30 IV Flush (NS 10 ml) 10 ml PRN PRN IV IV PROTOCOL; Start 09/11/16 at 10:00 Calcium/Vitamin D (Oyster Shell/ Vit-D (500/200)) 1 tab BID PO Last administered on 10/13/16 09:22; Admin Dose 1 TAB; Start 09/12/16 at 14:00 IV Flush (NS 10 ml) 10 ml PRN PRN IV IV PROTOCOL; Start 09/21/16 at 12:00 Methadone HCl 2 mg 2 mg Q6 PO Last administered on 10/13/16 17:56; Admin Dose 2 MG; Start 09/23/16 at 18:00 Potassium Chloride/Sodium Chloride 1,000 ml @ 70 mls/hr [id number] IV Last administered on 10/13/16 11:45; Admin Dose 70 MLS/HR; Start 09/28/16 at 16:30 Ondansetron HCl/ Sodium Chloride (Zofran Inj/NS) 54 ml @ 216 mls/hr Q12H PRN IV NAUSEA AND/OR VOMITING; Start 09/29/16 at 22:00 Prednisone 5 mg 5 mg BID PO Last administered on 10/13/16 09:22; Admin Dose 5 MG; Start 09/29/16 at 21:00 Docetaxel 45 mg/ Sodium Chloride 100 ml @ 100 mls/hr Th@22 IV Last administered on 10/06/16 22:24; Admin Dose 100 MLS/HR; Start 10/06/16 at 22:00 ; Stop 10/27/16 at 22:59 Ondansetron HCl/ Dexamethasone/ Dextrose (Zofran Inj/ Decadron/D5W) 60 ml @ 252 mls/hr Th@2130 IV Last administered on 10/06/16 21:31; Admin Dose 252 MLS/ HR; Start 10/06/16 at 21:30; Stop 10/27/16 at 21:45 Hydromorphone HCl (Dilaudid) 1.5 mg Q3H PRN IV PAIN Last administered on 15:32; Admin Dose 1.5 MG; Start 10/07/16 at 03:00 Senna (Senokot) 2 tab BID PO Last administered on 10/13/16 09:23; Admin Dose 2 TAB; Start 10/07/16 at 03:00 Bisacodyl 10 mg 10 mg DAILY PRN [place] CONSTIPATION Last administered on 10/07/16 03:07; Admin Dose 10 MG; Start 10/07/16 at 03:00 Vancomycin HCl/ Sodium Chloride (Vancocin/NS) 150 ml @ 75 mls/hr Q8H IVPB Last administered on 10/13/16 12:34; Admin Dose 75 MLS/HR; Start 10/08/16 at 19 :00 Vancomycin HCl (Vancomycin Oral Syringe) 250 mg Q6 PO Last administered on 10/13 17:56; Admin Dose 250 MG; Start 10/10/16 at 18:00 JARAD CHOI MD Oct 13, 2016 18:02
[2016-10-13] MEDS ORDERED: POTASSIUM CHLORIDE (SR) 20 MEQ TAB PO STA (18:50)
[2016-10-13] MEDS ORDERED: POTASSIUM CHLORIDE 20 MEQ POWDER FOR ORAL SOLN PO SCH (19:09)
[2016-10-13] MEDS: ALTEPLASE (CATHFLO) 2 MG INJ CATHETER PRN ×2 (21:01→21:13)
[2016-10-13] MEDS: ONDANSETRON IV SCH (21:45)
[2016-10-13] MEDS: DEXTROSE 5% IV SCH (21:45)
[2016-10-13] MEDS: DEXAMETHASONE IV SCH (21:45)
[2016-10-13] MEDS: DOCETAXEL IV SCH (22:33)
[2016-10-13] MEDS: SOD CHLORIDE 0.9% IV SCH (22:33)
[2016-10-14] MEDS: VANCOMYCIN HCL 250 MG/5ML POSYG PO SCH ×5 (00:02→23:19)
[2016-10-14 00:15] VITALS: BP 110/73; PULSE 82; RESP 18
[2016-10-14 00:45] VITALS: BP 111/71; PULSE 79; RESP 16
[2016-10-14] MEDS: HYDROmorphONE 2 MG/ML SYG IV PRN ×5 (02:17→19:10)
[2016-10-14] MEDS: VANCOMYCIN 750 MG in SOD CHLORIDE 0.9% 150 ML IVPB SCH (03:04)
[2016-10-14] MEDS: NS + KCL 20 MEQ 1,000 ML IV SCH ×2 (04:18→12:38)
[2016-10-14 04:45] VITALS: BP 117/77; RESP 18
[2016-10-14] MEDS: METHADONE (1 MG/1 ML PO SYG) PO SCH ×5 (05:39→23:19)
[2016-10-14] MEDS: PANTOPRAZOLE (EC) 40 MG TAB PO SCH (05:43)
[2016-10-14 05:45] LABS: BASOPHILS % 0.2 % (0.0-2.0); HEMATOCRIT 24.4 % (42.0-52.0); HEMOGLOBIN 8.4 g/dl (14.0-18.0); LYMPHOCYTES # 0.6 10^3/ul (0.8-2.9); LYMPHOCYTES % 13.6 % (15.0-51.0); MEAN CORPUSCULAR HEMOGLOBIN 29.3 pg (29.0-33.0); MEAN CORPUSCULAR HGB CONC 34.6 g/dl (32.0-37.0); MEAN CORPUSCULAR VOLUME 84.6 fl (82.0-101.0); MEAN PLATELET VOLUME 7.9 fl (7.4-10.4); MONOCYTE # 0.2 10^3/ul (0.3-0.9); MONOCYTES % 4.7 % (0.0-11.0); NEUTROPHIL # 3.6 10^3/ul (1.6-7.5); NEUTROPHILS % 81.5 % (39.0-77.0); PLATELET COUNT 102 10^3/UL (140-440); RED BLOOD COUNT 2.88 10^6/ul (4.70-6.10); RED CELL DISTRIBUTION WIDTH 15.9 % (11.5-14.5); UNCORRECTED WBC 4.4 10^3/ul (4.8-10.8); WHITE BLOOD COUNT 4.4 10^3/ul (4.8-10.8)
[2016-10-14 06:05] LABS: CONDITION 1; LH ANALYZER COMMENTS 1
[2016-10-14 06:17] LABS: ALBUMIN 2.3 g/dl (3.3-4.9)
[2016-10-14 06:18] LABS: POTASSIUM 3.7 mmol/L (3.5-5.1)
[2016-10-14 06:20] LABS: ALBUMIN/GLOBULIN RATIO 0.88; BILIRUBIN,INDIRECT 0.1 mg/dl (0-1.1); BILIRUBIN,TOTAL 0.1 mg/dl (0.2-1.3); CREATININE 0.27 mg/dl (0.61-1.24); TOTAL PROTEIN 4.9 g/dl (6.1-8.1)
[2016-10-14 06:21] LABS: CALCIUM 7.1 mg/dl (8.4-10.2)
[2016-10-14 08:29] VITALS: BP 110/64; RESP 18
[2016-10-14] MEDS: CALCIUM/VITAMIN D (500/200) TAB PO SCH ×2 (08:54→21:04)
[2016-10-14] MEDS: MEGESTROL (40 MG/ML) 10ML CUP PO SCH ×2 (08:54→21:04)
[2016-10-14] MEDS: ESCITALOPRAM 10 MG TAB PO SCH (08:54)
[2016-10-14] MEDS: predniSONE 5 MG TAB PO SCH ×2 (08:54→21:04)
[2016-10-14] MEDS: BICALUTAMIDE 50 MG TAB PO SCH (08:56)
[2016-10-14] MEDS: SENNA TAB PO SCH ×2 (08:56→21:00)
--- NOTE | 2016-10-14 11:51 | PN ---
Date/Time of Note Date/Time of Note DATE: 10/14/16 TIME: 11:49 Assessment/Plan VTE Prophylaxis VTE Prophylaxis Intervention: SCD's Lines/Catheters IV Catheter Type (from Nrsg): PICC Line Central line still needed: Yes Urinary Cath still in place: Yes Reason Cath still needed: urinary retention Assessment/Plan Chief Complaint/Hosp Course ASSESSMENT AND PLAN: 1. Clostridium difficile colitis. Continue vancomycin by mouth and contact isolation. 2. Metastatic prostate cancer. Dr. Hernandez is following patient in oncology consultation. Continue chemotherapy and steroids. 3. Thrombocytopenia. Continue to monitor platelets. 4. Acute on chronic back pain. Dr. Ferguson is following the patient in pain management. Continue methadone and Dilaudid p.r.n. for breakthrough pain. 5. Anemia, this post blood transfusion, continue to monitor hemoglobin and hematocrit. 6. MRSA UTI, cont Vanco, Dr Schuler is following in infectious disease consultation. Continue Protonix for peptic ulcer disease prophylaxis. Further recommendations based on clinical course. Plan of care discussed with Dr. Nichols. Problems: Subjective 24 Hr Interval Summary Free Text/Dictation Patient s/p chemo yesterday, awake, alert. Diarrhea yesterday per RN report. Exam/Review of Systems Vital Signs Vitals Vital Signs Date Time Temp Pulse Resp B/P Pulse Ox O2 Delivery O2 Flow Rate FiO2 10/14/16 08:29 98.2 80 18 110/64 96 10/14/16 04:45 Room Air Intake and Output 10/13/16 10/13/16 10/14/16 15:00 23:00 07:00 Intake Total 150 ml 910 ml 990 ml Output Total 1050 ml 1900 ml Balance 150 ml -140 ml -910 ml Exam GENERAL: Well-developed, cachectic male, currently is awake, alert. HEENT: Head is atraumatic, normocephalic. PERRLA. NECK: Supple. No mass, no thyromegaly. LUNGS: Clear bilaterally. No rhonchi, wheezes, rales noted. HEART: Normal S1, S2. No murmurs, gallops, clicks, rubs noted. ABDOMEN: Flat, soft, nondistended, nontender. Bowel sounds present. EXTREMITIES: No edema. SKIN: There is no rash, petechiae noted. NEUROLOGIC: The patient is awake, alert, and oriented x3. Results Result Diagram: 10/14/16 0500 10/14/16 0415 Results 24 hrs Laboratory Tests Test 10/14/16 04:15 10/14/16 05:00 Alanine Aminotransferase (ALT/SGPT) 26 Albumin 2.3 L Albumin/Globulin Ratio 0.88 Alkaline Phosphatase 560 H Anion Gap 11 Aspartate Amino Transf (AST/SGOT) 21 Blood Urea Nitrogen 2 L Calcium Level 7.1 L Carbon Dioxide Level 26 Chloride Level 102 Creatinine 0.27 L Direct Bilirubin 0.00 Globulin 2.60 Glucose Level 129 # Indirect Bilirubin 0.1 Potassium Level 3.7 Sodium Level 135 Total Bilirubin 0.1 L Total Protein 4.9 L Basophils # 0.0 Basophils % 0.2 Blood Morphology Comment Eosinophils # 0.0 Eosinophils % 0.0 Hematocrit 24.4 L Hemoglobin 8.4 L Lymphocytes # 0.6 L Lymphocytes % 13.6 L Mean Corpuscular Hemoglobin 29.3 Mean Corpuscular Hemoglobin Concent 34.6 Mean Corpuscular Volume 84.6 Mean Platelet Volume 7.9 Monocytes # 0.2 L Monocytes % 4.7 Neutrophils # 3.6 Neutrophils % 81.5 H Nucleated Red Blood Cells # 0.0 Nucleated Red Blood Cells % 0.0 Platelet Count 102 L Red Blood Count 2.88 L Red Cell Distribution Width 15.9 H White Blood Count 4.4 L Medications Medications Current Medications Bicalutamide (Casodex) 50 mg QAM PO Last administered on 10/14/16 08:56; Admin Dose 50 MG; Start 09/07/16 at 09:00 Docusate Sodium (Colace) 100 mg BID PRN PO CONSTIPATION Last administered on 05:22; Admin Dose 100 MG; Start 09/07/16 at 00:00 Escitalopram Oxalate (Lexapro) 5 mg DAILY PO Last administered on 10/14/16 08: 54; Admin Dose 5 MG; Start 09/07/16 at 09:00 Megestrol Acetate (Megace Susp) 400 mg BID PO Last administered on 10/14/16 08 :54; Admin Dose 400 MG; Start 09/07/16 at 09:00 Methylnaltrexone [place] (Relistor) 12 mg Q48H SC Last administered on 00:27; Admin Dose 12 MG; Start 09/07/16 at 00:00 Ondansetron HCl (Zofran Tab) 4 mg Q6H PRN PO NAUSEA AND/OR VOMITING Last administered on 10/05/16 19:46; Admin Dose 4 MG; Start 09/07/16 at 00:00 Acetaminophen (Tylenol Tab) 500 mg Q4H PRN PO PAIN AND OR ELEVATED TEMP Last administered on 10/05/16 15:37; Admin Dose 500 MG; Start 09/07/16 at 21:30 IV Flush (NS 10 ml) 10 ml PRN PRN IV IV PROTOCOL; Start 09/11/16 at 10:00 Calcium/Vitamin D (Oyster Shell/ Vit-D (500/200)) 1 tab BID PO Last administered on 10/14/16 08:54; Admin Dose 1 TAB; Start 09/12/16 at 14:00 IV Flush (NS 10 ml) 10 ml PRN PRN IV IV PROTOCOL; Start 09/21/16 at 12:00 Methadone HCl 2 mg 2 mg Q6 PO Last administered on 10/14/16 05:39; Admin Dose 2 MG; Start 09/23/16 at 18:00 Potassium Chloride/Sodium Chloride 1,000 ml @ 70 mls/hr [id number] IV Last administered on 10/13/16 11:45; Admin Dose 70 MLS/HR; Start 09/28/16 at 16:30 Ondansetron HCl/ Sodium Chloride (Zofran Inj/NS) 54 ml @ 216 mls/hr Q12H PRN IV NAUSEA AND/OR VOMITING; Start 09/29/16 at 22:00 Prednisone 5 mg 5 mg BID PO Last administered on 10/14/16 08:54; Admin Dose 5 MG; Start 09/29/16 at 21:00 Docetaxel 45 mg/ Sodium Chloride 100 ml @ 100 mls/hr Th@22 IV Last administered on 10/13/16 22:33; Admin Dose 100 MLS/HR; Start 10/06/16 at 22:00 ; Stop 10/27/16 at 22:59 Ondansetron HCl/ Dexamethasone/ Dextrose (Zofran Inj/ Decadron/D5W) 60 ml @ 252 mls/hr Th@2130 IV Last administered on 10/13/16 21:45; Admin Dose 252 MLS/ HR; Start 10/06/16 at 21:30; Stop 10/27/16 at 21:45 Hydromorphone HCl (Dilaudid) 1.5 mg Q3H PRN IV PAIN Last administered on 08:55; Admin Dose 1.5 MG; Start 10/07/16 at 03:00 Senna (Senokot) 2 tab BID PO Last administered on 10/13/16 09:23; Admin Dose 2 TAB; Start 10/07/16 at 03:00 Bisacodyl (Dulcolax Supp) 10 mg DAILY PRN [place] CONSTIPATION Last administered on 10/07/16 03:07; Admin Dose 10 MG; Start 10/07/16 at 03:00 Vancomycin HCl (Vancomycin Oral Syringe) 250 mg Q6 PO Last administered on 10/14 05:39; Admin Dose 250 MG; Start 10/10/16 at 18:00 Miscellaneous Information (*Rx Drug Level Order Reminder*) VANCO TROUGH @ 0, 200 ON... ONCE ONCE XX ; Start 10/15/16 at 02:00; Stop 10/15/16 at 02:01 SREE GRIFFITH Oct 14, 2016 11:51
--- NOTE | 2016-10-14 13:40 | PN ---
DATE: 10/14/2016 INFECTIOUS DISEASE PROGRESS NOTE SUBJECTIVE: Patient is sleeping. No fevers. He did have 3 loose stools last night, but no loose stools since this morning, WBC 4.4, neutrophils 81.5, platelets 102, BUN 2, creatinine 0.27. MICROBIOLOGY: Urine culture repeated 2 days ago pending. ANTIMICROBIALS: The patient is on oral and IV vancomycin. INDWELLINGS: White, PICC line. PHYSICAL EXAMINATION: GENERAL: This is a cachectic elderly man who is alert, in no distress. HEENT: Head atraumatic, normocephalic. Sclerae anicteric. Buccal mucosa pink. NECK: Supple. CHEST: Rise symmetrical. Breath sounds clear, diminished to bases. HEART: S1, S2. ABDOMEN: Soft, bowel tones present. EXTREMITIES: No cyanosis. ASSESSMENT: 1. Persistent C difficile colitis. 2. Methicillin-resistant Staphylococcus aureus urinary tract infection, on vancomycin day #11. 3. Metastatic prostate carcinoma. PLAN: The patient remains stable, no fevers. We are going to discontinue IV vancomycin. Keep him on p.o. vancomycin. If diarrhea persists, we will change antibiotics Dificid. Dictated By: EUNICE GUNTER CANCER PROGRAM DIRECTOR for PINO MULLINS/ADRIANA Conf#: [id number] DID#: [id number] MTDD
[2016-10-14 20:04] VITALS: BP 106/65; RESP 20
--- NOTE | 2016-10-14 23:26 | CONS ---
Date/Time of Note Date/Time of Note DATE: 10/14/16 TIME: 23:26 Assessment/Plan Assessment/Plan Chief Complaint/Hosp Course Metastatic prostate cancer. POS CHEMO # 2 chemotherapy and steroids - PER PROTOCOL Chemotherapy Docetaxel (Taxotere) 30 mg/m2 IV over 30 minutes once per day on days 1, 8, 15, 22, 29 Prednisone (Sterapred) 5 mg PO BID on days 1 to 42 Supportive medications Dexamethasone (Decadron) 8 mg (route not specified) once 1 hour before Docetaxel (Taxotere) Antiemetics "according to local practice" 42-day cycle for up to 5 cycles ANEMIA POST PRBC MONITOR CLOSELY OBSERVE FOR BLEEDING AND HEMOLYSIS Thrombocytopenia. Continue to monitor platelets. transfuse as needed PANCYTOPENIA MONITOR DECONDITIONING PT Acute on chronic back pain. Dr. Ferguson is following the patient in pain management. Continue methadone and Dilaudid p.r.n. for breakthrough pain. Clostridium difficile colitis. Continue Flagyl and contact isolation- per ID Problems: Consultation Date/Type/Reason Admit Date/Time Sep 06, 2016 at 22:01 Initial Consult Date 09/08/16 Type of Consultation: hemeon Referring Provider: TIMOTHY MARAVILLA MD 24 HR Interval Summary Free Text/Dictation POST CHEMO COUNT REVIEWED NO FEVER MORE ACTIVE DOING PT Exam/Review of Systems Vital Signs Vitals Vital Signs Date Time Temp Pulse Resp B/P Pulse Ox O2 Delivery O2 Flow Rate FiO2 10/14/16 20:04 98.0 106 20 106/65 98 10/14/16 04:45 Room Air Intake and Output 10/13/16 10/13/16 10/14/16 15:00 23:00 07:00 Intake Total 150 ml 910 ml 990 ml Output Total 1050 ml 1900 ml Balance 150 ml -140 ml -910 ml Exam Constitutional: alert, oriented Psych: nl mood/affect Head: normocephalic Eyes: EOMI, nl conjunctiva ENMT: nl external ears & nose Neck: non-tender Respiratory: clear to auscultation Cardiovascular: nl pulses Gastrointestinal: soft, tender (diffuse tenderness ) Extremities: normal pulses 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: nl speech Skin: nl turgor Lymph: nontender Results Result Diagram: 10/14/16 0500 10/14/16 0410 Results 24 hrs Laboratory Tests Test 10/14/16 04:15 10/14/16 05:00 Alanine Aminotransferase (ALT/SGPT) 26 Albumin 2.3 L Albumin/Globulin Ratio 0.88 Alkaline Phosphatase 560 H Anion Gap 11 Aspartate Amino Transf (AST/SGOT) 21 Blood Urea Nitrogen 2 L Calcium Level 7.1 L Carbon Dioxide Level 26 Chloride Level 102 Creatinine 0.27 L Direct Bilirubin 0.00 Globulin 2.60 Glucose Level 129 # Indirect Bilirubin 0.1 Potassium Level 3.7 Sodium Level 135 Total Bilirubin 0.1 L Total Protein 4.9 L Basophils # 0.0 Basophils % 0.2 Blood Morphology Comment Eosinophils # 0.0 Eosinophils % 0.0 Hematocrit 24.4 L Hemoglobin 8.4 L Lymphocytes # 0.6 L Lymphocytes % 13.6 L Mean Corpuscular Hemoglobin 29.3 Mean Corpuscular Hemoglobin Concent 34.6 Mean Corpuscular Volume 84.6 Mean Platelet Volume 7.9 Monocytes # 0.2 L Monocytes % 4.7 Neutrophils # 3.6 Neutrophils % 81.5 H Nucleated Red Blood Cells # 0.0 Nucleated Red Blood Cells % 0.0 Platelet Count 102 L Red Blood Count 2.88 L Red Cell Distribution Width 15.9 H White Blood Count 4.4 L Medications Medications Current Medications Bicalutamide (Casodex) 50 mg QAM PO Last administered on 10/14/16 08:56; Admin Dose 50 MG; Start 09/07/16 at 09:00 Docusate Sodium (Colace) 100 mg BID PRN PO CONSTIPATION Last administered on 05:22; Admin Dose 100 MG; Start 09/07/16 at 00:00 Escitalopram Oxalate (Lexapro) 5 mg DAILY PO Last administered on 10/14/16 08: 54; Admin Dose 5 MG; Start 09/07/16 at 09:00 Megestrol Acetate (Megace Susp) 400 mg BID PO Last administered on 10/14/16 21 :04; Admin Dose 400 MG; Start 09/07/16 at 09:00 Methylnaltrexone [place] (Relistor) 12 mg Q48H SC Last administered on 00:27; Admin Dose 12 MG; Start 09/07/16 at 00:00 Ondansetron HCl (Zofran Tab) 4 mg Q6H PRN PO NAUSEA AND/OR VOMITING Last administered on 10/05/16 19:46; Admin Dose 4 MG; Start 09/07/16 at 00:00 Acetaminophen (Tylenol Tab) 500 mg Q4H PRN PO PAIN AND OR ELEVATED TEMP Last administered on 10/05/16 15:37; Admin Dose 500 MG; Start 09/07/16 at 21:30 IV Flush (NS 10 ml) 10 ml PRN PRN IV IV PROTOCOL; Start 09/11/16 at 10:00 Calcium/Vitamin D (Oyster Shell/ Vit-D (500/200)) 1 tab BID PO Last administered on 10/14/16 21:04; Admin Dose 1 TAB; Start 09/12/16 at 14:00 IV Flush (NS 10 ml) 10 ml PRN PRN IV IV PROTOCOL; Start 09/21/16 at 12:00 Methadone HCl 2 mg 2 mg Q6 PO Last administered on 10/14/16 23:19; Admin Dose 2 MG; Start 09/23/16 at 18:00 Potassium Chloride/Sodium Chloride 1,000 ml @ 70 mls/hr [id number] IV Last administered on 10/14/16 12:38; Admin Dose 70 MLS/HR; Start 09/28/16 at 16:30 Ondansetron HCl/ Sodium Chloride (Zofran Inj/NS) 54 ml @ 216 mls/hr Q12H PRN IV NAUSEA AND/OR VOMITING; Start 09/29/16 at 22:00 Prednisone 5 mg 5 mg BID PO Last administered on 10/14/16 21:04; Admin Dose 5 MG; Start 09/29/16 at 21:00 Docetaxel 45 mg/ Sodium Chloride 100 ml @ 100 mls/hr Th@22 IV Last administered on 10/13/16 22:33; Admin Dose 100 MLS/HR; Start 10/06/16 at 22:00 ; Stop 10/27/16 at 22:59 Ondansetron HCl/ Dexamethasone/ Dextrose (Zofran Inj/ Decadron/D5W) 60 ml @ 252 mls/hr Th@2130 IV Last administered on 10/13/16 21:45; Admin Dose 252 MLS/ HR; Start 10/06/16 at 21:30; Stop 10/27/16 at 21:45 Hydromorphone HCl (Dilaudid) 1.5 mg Q3H PRN IV PAIN Last administered on 19:10; Admin Dose 1.5 MG; Start 10/07/16 at 03:00 Senna (Senokot) 2 tab BID PO Last administered on 10/13/16 09:23; Admin Dose 2 TAB; Start 10/07/16 at 03:00 Bisacodyl (Dulcolax Supp) 10 mg DAILY PRN [place] CONSTIPATION Last administered on 10/07/16 03:07; Admin Dose 10 MG; Start 10/07/16 at 03:00 Vancomycin HCl (Vancomycin Oral Syringe) 250 mg Q6 PO Last administered on 10/14 23:19; Admin Dose 250 MG; Start 10/10/16 at 18:00 Miscellaneous Information (*Rx Drug Level Order Reminder*) VANCO TROUGH @ 0, 200 ON... ONCE ONCE XX ; Start 10/15/16 at 02:00; Stop 10/15/16 at 02:01 JARAD CHOI MD Oct 14, 2016 23:26
[2016-10-15] MEDS: METHYLNALTREXONE 12 MG/0.6 ML VIAL SC SCH
[2016-10-15] MEDS: HYDROmorphONE 2 MG/ML SYG IV PRN ×6 (01:11→21:31)
[2016-10-15] MEDS: NS + KCL 20 MEQ 1,000 ML IV SCH ×2 (04:31→21:31)
[2016-10-15 05:58] LABS: BASOPHILS % 0.4 % (0.0-2.0); HEMATOCRIT 23.8 % (42.0-52.0); HEMOGLOBIN 8.5 g/dl (14.0-18.0); LYMPHOCYTES # 0.3 10^3/ul (0.8-2.9); LYMPHOCYTES % 5.8 % (15.0-51.0); MEAN CORPUSCULAR HEMOGLOBIN 29.5 pg (29.0-33.0); MEAN CORPUSCULAR HGB CONC 35.6 g/dl (32.0-37.0); MEAN PLATELET VOLUME 7.9 fl (7.4-10.4); MONOCYTE # 0.3 10^3/ul (0.3-0.9); MONOCYTES % 6.3 % (0.0-11.0); NEUTROPHIL # 4.1 10^3/ul (1.6-7.5); NEUTROPHILS % 87.5 % (39.0-77.0); PLATELET COUNT 110 10^3/UL (140-440); RED BLOOD COUNT 2.87 10^6/ul (4.70-6.10); UNCORRECTED WBC 4.7 10^3/ul (4.8-10.8); WHITE BLOOD COUNT 4.7 10^3/ul (4.8-10.8)
[2016-10-15 05:59] LABS: CONDITION 1; LH ANALYZER COMMENTS 1
[2016-10-15 06:37] LABS: ALBUMIN 2.1 g/dl (3.3-4.9)
[2016-10-15] MEDS: METHADONE (1 MG/1 ML PO SYG) PO SCH ×4 (06:37→23:51)
[2016-10-15 06:38] LABS: POTASSIUM 3.9 mmol/L (3.5-5.1)
[2016-10-15] MEDS: VANCOMYCIN HCL 250 MG/5ML POSYG PO SCH ×4 (06:38→23:50)
[2016-10-15 06:40] LABS: ALBUMIN/GLOBULIN RATIO 0.75; BILIRUBIN,INDIRECT 0.1 mg/dl (0-1.1); BILIRUBIN,TOTAL 0.1 mg/dl (0.2-1.3); CREATININE 0.3 mg/dl (0.61-1.24); TOTAL PROTEIN 4.9 g/dl (6.1-8.1)
[2016-10-15 06:41] LABS: CALCIUM 7.2 mg/dl (8.4-10.2)
[2016-10-15 07:00] VITALS: BP 105/72; RESP 18
[2016-10-15] MEDS: SENNA TAB PO SCH ×2 (09:00→21:00)
[2016-10-15] MEDS: PANTOPRAZOLE (EC) 40 MG TAB PO SCH ×2 (09:08→18:03)
[2016-10-15] MEDS: MEGESTROL (40 MG/ML) 10ML CUP PO SCH ×2 (09:08→21:31)
[2016-10-15] MEDS: ESCITALOPRAM 10 MG TAB PO SCH (09:09)
[2016-10-15] MEDS: CALCIUM/VITAMIN D (500/200) TAB PO SCH ×2 (09:10→21:31)
[2016-10-15] MEDS: BICALUTAMIDE 50 MG TAB PO SCH (09:14)
[2016-10-15] MEDS: predniSONE 5 MG TAB PO SCH ×2 (09:17→21:31)
--- NOTE | 2016-10-15 10:04 | CONS ---
Date/Time of Note Date/Time of Note DATE: 10/15/16 TIME: 10:03 Assessment/Plan Assessment/Plan Chief Complaint/Hosp Course D PROGRESS NOTE TOTAL ABX DAY # Vanco PO s/p Vanco IV x 11 days => OFF day #1 24H INTERVAL SUMMARY * Resting comfortably, VSS, NAD, no fevers * Chart reviewed 11 BMs yesterday (+)C.Diff w/4BMs so far today PHYSICAL EXAMINATION: GENERAL: 60 yo cachectic M, resting comfortably, NAD HEENT: Unremarkable NECK: Supple, trachea midline. CHEST: Equal chest rise bilaterally, without dyspnea on observation HEART: Pulse RRR ABDOMEN: Soft EXTREMITIES: Warm SKIN: See photos ID ASSESSMENT: 60 yo M w/{MHx Metastatic Prostate Cancer admit with: 1. POS CHEMO Tx + Steroids Rx per HemeOnc -> Prostate Cancer w/extensive sclerotic metastatic disease/aggressive periostitis of the pelvis 2. Pancytopenia per #1 3. Persistent C difficile colitis with diarrhea 4. Methicillin-resistant Staphylococcus aureus urinary tract infection-> s/p Vanco IV x day #11. 5. Acute/chronic bone pain 2/2 #1 (-)MRSA Nares INVASIVES: ABX ALLERGY: KNDA CURRENT ABX: TOTAL ABX DAY #Vanco PO s/p Vanco IV ID RECOMMENDATIONS: 1. Continue Vanco Liquid PO -> If C.Diff persists, consider 3-Rx w/Flagyl + Rifaximin. . Problems: Consultation Date/Type/Reason Admit Date/Time Sep 06, 2016 at 22:01 Initial Consult Date 09/08/16 Type of Consultation: ID Referring Provider: TIMOTHY MARAVILLA MD Exam/Review of Systems Vital Signs Vitals Vital Signs Date Time Temp Pulse Resp B/P Pulse Ox O2 Delivery O2 Flow Rate FiO2 10/15/16 07:00 98.9 91 18 105/72 97 10/14/16 04:45 Room Air Intake and Output 10/14/16 10/14/16 10/15/16 15:00 23:00 07:00 Intake Total 1260 ml 1020 ml Output Total 750 ml 600 ml Balance 510 ml 420 ml Results Result Diagram: 10/15/1641910/15/16 042 Results 24 hrs Laboratory Tests Test 10/15/16 04:20 Alanine Aminotransferase (ALT/SGPT) 23 Albumin 2.1 L Albumin/Globulin Ratio 0.75 Alkaline Phosphatase 500 H Anion Gap 9 Aspartate Amino Transf (AST/SGOT) 23 Basophils # 0.0 Basophils % 0.4 Blood Morphology Comment Blood Urea Nitrogen 4 L Calcium Level 7.2 L Carbon Dioxide Level 25 Chloride Level 104 Creatinine 0.30 L Direct Bilirubin 0.00 Eosinophils # 0.0 Eosinophils % 0.0 Globulin 2.80 Glucose Level 105 Hematocrit 23.8 L Hemoglobin 8.5 L Indirect Bilirubin 0.1 Lymphocytes # 0.3 L Lymphocytes % 5.8 L Mean Corpuscular Hemoglobin 29.5 Mean Corpuscular Hemoglobin Concent 35.6 Mean Corpuscular Volume 83.0 Mean Platelet Volume 7.9 Monocytes # 0.3 Monocytes % 6.3 Neutrophils # 4.1 Neutrophils % 87.5 H Nucleated Red Blood Cells # 0.0 Nucleated Red Blood Cells % 0.0 Platelet Count 110 L Potassium Level 3.9 Red Blood Count 2.87 L Red Cell Distribution Width 16.0 H Sodium Level 134 L Total Bilirubin 0.1 L Total Protein 4.9 L White Blood Count 4.7 L Medications Medications Current Medications Bicalutamide (Casodex) 50 mg QAM PO Last administered on 10/15/16 09:14; Admin Dose 50 MG; Start 09/07/16 at 09:00 Docusate Sodium (Colace) 100 mg BID PRN PO CONSTIPATION Last administered on 05:22; Admin Dose 100 MG; Start 09/07/16 at 00:00 Escitalopram Oxalate (Lexapro) 5 mg DAILY PO Last administered on 10/15/16 09: 09; Admin Dose 5 MG; Start 09/07/16 at 09:00 Megestrol Acetate (Megace Susp) 400 mg BID PO Last administered on 10/15/16 09 :08; Admin Dose 400 MG; Start 09/07/16 at 09:00 Methylnaltrexone [place] (Relistor) 12 mg Q48H SC Last administered on 00:27; Admin Dose 12 MG; Start 09/07/16 at 00:00 Ondansetron HCl (Zofran Tab) 4 mg Q6H PRN PO NAUSEA AND/OR VOMITING Last administered on 10/05/16 19:46; Admin Dose 4 MG; Start 09/07/16 at 00:00 Acetaminophen (Tylenol Tab) 500 mg Q4H PRN PO PAIN AND OR ELEVATED TEMP Last administered on 10/05/16 15:37; Admin Dose 500 MG; Start 09/07/16 at 21:30 IV Flush (NS 10 ml) 10 ml PRN PRN IV IV PROTOCOL; Start 09/11/16 at 10:00 Calcium/Vitamin D (Oyster Shell/ Vit-D (500/200)) 1 tab BID PO Last administered on 10/15/16 09:10; Admin Dose 1 TAB; Start 09/12/16 at 14:00 IV Flush (NS 10 ml) 10 ml PRN PRN IV IV PROTOCOL; Start 09/21/16 at 12:00 Methadone HCl 2 mg 2 mg Q6 PO Last administered on 10/15/16 06:37; Admin Dose 2 MG; Start 09/23/16 at 18:00 Potassium Chloride/Sodium Chloride 1,000 ml @ 70 mls/hr [id number] IV Last administered on 10/15/16 04:31; Admin Dose 70 MLS/HR; Start 09/28/16 at 16:30 Ondansetron HCl/ Sodium Chloride (Zofran Inj/NS) 54 ml @ 216 mls/hr Q12H PRN IV NAUSEA AND/OR VOMITING; Start 09/29/16 at 22:00 Prednisone 5 mg 5 mg BID PO Last administered on 10/15/16 09:17; Admin Dose 5 MG; Start 09/29/16 at 21:00 Docetaxel 45 mg/ Sodium Chloride 100 ml @ 100 mls/hr Th@22 IV Last administered on 10/13/16 22:33; Admin Dose 100 MLS/HR; Start 10/06/16 at 22:00 ; Stop 10/27/16 at 22:59 Ondansetron HCl/ Dexamethasone/ Dextrose (Zofran Inj/ Decadron/D5W) 60 ml @ 252 mls/hr Th@2130 IV Last administered on 10/13/16 21:45; Admin Dose 252 MLS/ HR; Start 10/06/16 at 21:30; Stop 10/27/16 at 21:45 Hydromorphone HCl (Dilaudid) 1.5 mg Q3H PRN IV PAIN Last administered on 09:10; Admin Dose 1.5 MG; Start 10/07/16 at 03:00 Senna (Senokot) 2 tab BID PO Last administered on 10/13/16 09:23; Admin Dose 2 TAB; Start 10/07/16 at 03:00 Bisacodyl (Dulcolax Supp) 10 mg DAILY PRN [place] CONSTIPATION Last administered on 10/07/16 03:07; Admin Dose 10 MG; Start 10/07/16 at 03:00 Vancomycin HCl (Vancomycin Oral Syringe) 250 mg Q6 PO Last administered on 10/15 06:38; Admin Dose 250 MG; Start 10/10/16 at 18:00 BRITTNEY DENTON NP Oct 15, 2016 10:03
--- NOTE | 2016-10-15 14:49 | PN ---
Date/Time of Note Date/Time of Note DATE: 10/15/16 TIME: 14:45 Assessment/Plan VTE Prophylaxis VTE Prophylaxis Intervention: SCD's Lines/Catheters IV Catheter Type (from Nrsg): PICC Line Central line still needed: Yes Urinary Cath still in place: Yes Reason Cath still needed: urinary retention Assessment/Plan Assessment/Plan 1. Clostridium difficile colitis. Continue Flagyl and contact isolation. 2. Metastatic prostate cancer. - per Dr. Hernandez in oncology consultation. Continue chemotherapy and steroids. 3. Thrombocytopenia. Continue to monitor platelets.Hold Lovenox until clarified with Hem/Onc. 4. Acute on chronic back pain. - per Dr. Ferguson in pain management. Continue methadone and Dilaudid p.r.n. for breakthrough pain.. 5. Anemia- sp 2 units PRBC 6. Abnormal LFTs 7. Abdominal pain- diffuse - GI consult appreciated- dr Wood notified. Continue Protonix for peptic ulcer disease prophylaxis. . SCD for DVT prophylaxis Further recommendations based on clinical course. Plan of care discussed with Dr. Nichols. Subjective 24 Hr Interval Summary Eyes: no complaints ENT: no complaints Respiratory: no complaints Cardiovascular: no complaints Gastrointestinal: pain Genitourinary: no complaints Musculoskeletal: back pain Skin: no complaints Neurologic: no complaints Endocrine: no complaints Lymphatic: no complaints Psychological: no complaints Immunologic: no complaints Exam/Review of Systems Vital Signs Vitals Vital Signs Date Time Temp Pulse Resp B/P Pulse Ox O2 Delivery O2 Flow Rate FiO2 10/15/16 07:00 98.9 91 18 105/72 97 10/14/16 04:45 Room Air Intake and Output 10/14/16 10/14/16 10/15/16 15:00 23:00 07:00 Intake Total 1260 ml 1020 ml Output Total 750 ml 600 ml Balance 510 ml 420 ml Exam Constitutional: alert, oriented Psych: nl mood/affect Head: normocephalic Eyes: EOMI, nl conjunctiva ENMT: nl external ears & nose Neck: non-tender Respiratory: clear to auscultation Cardiovascular: nl pulses Gastrointestinal: soft, tender (diffuse tenderness ) Extremities: normal pulses 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: nl speech Skin: nl turgor Lymph: nontender Results Result Diagram: 10/15/1641910/15/16 042 Results 24 hrs Laboratory Tests Test 10/15/16 04:20 Alanine Aminotransferase (ALT/SGPT) 23 Albumin 2.1 L Albumin/Globulin Ratio 0.75 Alkaline Phosphatase 500 H Anion Gap 9 Aspartate Amino Transf (AST/SGOT) 23 Basophils # 0.0 Basophils % 0.4 Blood Morphology Comment Blood Urea Nitrogen 4 L Calcium Level 7.2 L Carbon Dioxide Level 25 Chloride Level 104 Creatinine 0.30 L Direct Bilirubin 0.00 Eosinophils # 0.0 Eosinophils % 0.0 Globulin 2.80 Glucose Level 105 Hematocrit 23.8 L Hemoglobin 8.5 L Indirect Bilirubin 0.1 Lymphocytes # 0.3 L Lymphocytes % 5.8 L Mean Corpuscular Hemoglobin 29.5 Mean Corpuscular Hemoglobin Concent 35.6 Mean Corpuscular Volume 83.0 Mean Platelet Volume 7.9 Monocytes # 0.3 Monocytes % 6.3 Neutrophils # 4.1 Neutrophils % 87.5 H Nucleated Red Blood Cells # 0.0 Nucleated Red Blood Cells % 0.0 Platelet Count 110 L Potassium Level 3.9 Red Blood Count 2.87 L Red Cell Distribution Width 16.0 H Sodium Level 134 L Total Bilirubin 0.1 L Total Protein 4.9 L White Blood Count 4.7 L Medications Medications Current Medications Bicalutamide (Casodex) 50 mg QAM PO Last administered on 10/15/16 09:14; Admin Dose 50 MG; Start 09/07/16 at 09:00 Docusate Sodium (Colace) 100 mg BID PRN PO CONSTIPATION Last administered on 05:22; Admin Dose 100 MG; Start 09/07/16 at 00:00 Escitalopram Oxalate (Lexapro) 5 mg DAILY PO Last administered on 10/15/16 09: 09; Admin Dose 5 MG; Start 09/07/16 at 09:00 Megestrol Acetate (Megace Susp) 400 mg BID PO Last administered on 10/15/16 09 :08; Admin Dose 400 MG; Start 09/07/16 at 09:00 Methylnaltrexone [place] (Relistor) 12 mg Q48H SC Last administered on 00:27; Admin Dose 12 MG; Start 09/07/16 at 00:00 Ondansetron HCl (Zofran Tab) 4 mg Q6H PRN PO NAUSEA AND/OR VOMITING Last administered on 10/05/16 19:46; Admin Dose 4 MG; Start 09/07/16 at 00:00 Acetaminophen (Tylenol Tab) 500 mg Q4H PRN PO PAIN AND OR ELEVATED TEMP Last administered on 10/05/16 15:37; Admin Dose 500 MG; Start 09/07/16 at 21:30 IV Flush (NS 10 ml) 10 ml PRN PRN IV IV PROTOCOL; Start 09/11/16 at 10:00 Calcium/Vitamin D ([place]/ Vit-D (500/200)) 1 tab BID PO Last administered on 10/15/16 09:10; Admin Dose 1 TAB; Start 09/12/16 at 14:00 IV Flush (NS 10 ml) 10 ml PRN PRN IV IV PROTOCOL; Start 09/21/16 at 12:00 Methadone HCl 2 mg 2 mg Q6 PO Last administered on 10/15/16 12:05; Admin Dose 2 MG; Start 09/23/16 at 18:00 Potassium Chloride/Sodium Chloride 1,000 ml @ 70 mls/hr [id number] IV Last administered on 10/15/16 04:31; Admin Dose 70 MLS/HR; Start 09/28/16 at 16:30 Ondansetron HCl/ Sodium Chloride (Zofran Inj/NS) 54 ml @ 216 mls/hr Q12H PRN IV NAUSEA AND/OR VOMITING; Start 09/29/16 at 22:00 Prednisone 5 mg 5 mg BID PO Last administered on 10/15/16 09:17; Admin Dose 5 MG; Start 09/29/16 at 21:00 Docetaxel 45 mg/ Sodium Chloride 100 ml @ 100 mls/hr Th@22 IV Last administered on 10/13/16 22:33; Admin Dose 100 MLS/HR; Start 10/06/16 at 22:00 ; Stop 10/27/16 at 22:59 Ondansetron HCl/ Dexamethasone/ Dextrose (Zofran Inj/ Decadron/D5W) 60 ml @ 252 mls/hr Th@2130 IV Last administered on 10/13/16 21:45; Admin Dose 252 MLS/ HR; Start 10/06/16 at 21:30; Stop 10/27/16 at 21:45 Hydromorphone HCl (Dilaudid) 1.5 mg Q3H PRN IV PAIN Last administered on 09:10; Admin Dose 1.5 MG; Start 10/07/16 at 03:00 Senna (Senokot) 2 tab BID PO Last administered on 10/13/16 09:23; Admin Dose 2 TAB; Start 10/07/16 at 03:00 Bisacodyl (Dulcolax Supp) 10 mg DAILY PRN [place] CONSTIPATION Last administered on 10/07/16 03:07; Admin Dose 10 MG; Start 10/07/16 at 03:00 Vancomycin HCl (Vancomycin Oral Syringe) 250 mg Q6 PO Last administered on 10/15 12:05; Admin Dose 250 MG; Start 10/10/16 at 18:00 KENDAL BELLO Oct 15, 2016 14:49
--- NOTE | 2016-10-15 15:33 | CONS ---
Date/Time of Note Date/Time of Note DATE: 10/15/16 TIME: 15:19 Assessment/Plan Assessment/Plan Chief Complaint/Hosp Course Impression: 1. Clostridium difficile colitis. Continues to have persistent diarrhea 2. Abdominal pain: worsening, associated with nausea and vomiting. ddx include C. diff coitis vs side effects from chemotherapy vs gastritis, duodenitis, esophagitis. 3. anemia 4. Metastatic prostate cancer. Dr. Hernandez is following patient in oncology consultation. Continue chemotherapy and steroids. 5. MRSA 6. Abnormal LFTs Recommendations: 1. Continue vancomycin for C. diff. Consider fidoxomycin per ID. 2. will check CMV PCR as pt is immunosuppressed and to r/o possible CMV colitis /enteritis 3. continue pain control 4. ordered occult stool blood to r/o GIB 5. abx per ID 6. increase protonix from qd to bid dosing. 7. 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 Irene Zhu and managed by Dr. Suzan Hernandez, referred to [facility] for weakness and dehydration. GI is consulted for worsening diarrhea, abdominal pain, nausea and vomiting. All of these acutely worsened 1 wk ago. Abdominal pain is diffuse but worst in the pelvic region, even lower than the abdominal region. The area he pointed to is his hip area. The pain causes him to be nauseous. No melena, brbpr, coffee ground emesis or hematemesis. He is currently getting chemotherapy with Docetaxel (Taxotere). All point ROS administered, pertinent positives and negatives in HPI otherwise negative. Constitutional: No requiring O2 Eyes: no complaints ENT: no complaints Respiratory: no complaints Cardiovascular: no complaints Gastrointestinal: pain Genitourinary: no complaints Musculoskeletal: back pain Skin: no complaints Neurologic: no complaints Endocrine: no complaints Lymphatic: no complaints Psychological: nl mood/affect Immunologic: no complaints Past Medical History Medical History: deep vein thrombosis, urinary tract infection, other ( metastatic prostate cancer, anemia) Past Surgical History Past Surgical Hx: no surgical history Family History Significant Family History: no pertinent family hx Social History Alcohol Use: none Smoking Status: Former smoker Drug Use: none Exam/Review of Systems Vital Signs Vitals Vital Signs Date Time Temp Pulse Resp B/P Pulse Ox O2 Delivery O2 Flow Rate FiO2 10/15/16 07:00 98.9 91 18 105/72 97 10/14/16 04:45 Room Air Intake and Output 10/14/16 10/14/16 10/15/16 15:00 23:00 07:00 Intake Total 1260 ml 1020 ml Output Total 750 ml 600 ml Balance 510 ml 420 ml Exam Constitutional: alert, frail, oriented Psych: depression Head: atraumatic, normocephalic Eyes: EOMI, nl conjunctiva, nl lids, nl sclera ENMT: mucosa pink and moist, nl external ears & nose, nl lips & teeth, nl nasal mucosa & septum Neck: non-tender, supple Respiratory: clear to auscultation, normal air movement Cardiovascular: nl pulses, regular rate and rhythm Gastrointestinal: bowel sounds, soft, tender (diffusely tender worst in the hip area, no r/g) 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: lethargic, nl mental status Results Result Diagram: 10/15/1641910/15/16419 Results 24 hrs Laboratory Tests Test 10/15/16 04:20 Alanine Aminotransferase (ALT/SGPT) 23 Albumin 2.1 L Albumin/Globulin Ratio 0.75 Alkaline Phosphatase 500 H Anion Gap 9 Aspartate Amino Transf (AST/SGOT) 23 Basophils # 0.0 Basophils % 0.4 Blood Morphology Comment Blood Urea Nitrogen 4 L Calcium Level 7.2 L Carbon Dioxide Level 25 Chloride Level 104 Creatinine 0.30 L Direct Bilirubin 0.00 Eosinophils # 0.0 Eosinophils % 0.0 Globulin 2.80 Glucose Level 105 Hematocrit 23.8 L Hemoglobin 8.5 L Indirect Bilirubin 0.1 Lymphocytes # 0.3 L Lymphocytes % 5.8 L Mean Corpuscular Hemoglobin 29.5 Mean Corpuscular Hemoglobin Concent 35.6 Mean Corpuscular Volume 83.0 Mean Platelet Volume 7.9 Monocytes # 0.3 Monocytes % 6.3 Neutrophils # 4.1 Neutrophils % 87.5 H Nucleated Red Blood Cells # 0.0 Nucleated Red Blood Cells % 0.0 Platelet Count 110 L Potassium Level 3.9 Red Blood Count 2.87 L Red Cell Distribution Width 16.0 H Sodium Level 134 L Total Bilirubin 0.1 L Total Protein 4.9 L White Blood Count 4.7 L Medications Medications Current Medications Bicalutamide (Casodex) 50 mg QAM PO Last administered on 10/15/16 09:14; Admin Dose 50 MG; Start 09/07/16 at 09:00 Docusate Sodium (Colace) 100 mg BID PRN PO CONSTIPATION Last administered on 05:22; Admin Dose 100 MG; Start 09/07/16 at 00:00 Escitalopram Oxalate (Lexapro) 5 mg DAILY PO Last administered on 10/15/16 09: 09; Admin Dose 5 MG; Start 09/07/16 at 09:00 Megestrol Acetate (Megace Susp) 400 mg BID PO Last administered on 10/15/16 09 :08; Admin Dose 400 MG; Start 09/07/16 at 09:00 Methylnaltrexone [place] (Relistor) 12 mg Q48H SC Last administered on 00:27; Admin Dose 12 MG; Start 09/07/16 at 00:00 Ondansetron HCl (Zofran Tab) 4 mg Q6H PRN PO NAUSEA AND/OR VOMITING Last administered on 10/05/16 19:46; Admin Dose 4 MG; Start 09/07/16 at 00:00 Acetaminophen (Tylenol Tab) 500 mg Q4H PRN PO PAIN AND OR ELEVATED TEMP Last administered on 10/05/16 15:37; Admin Dose 500 MG; Start 09/07/16 at 21:30 IV Flush (NS 10 ml) 10 ml PRN PRN IV IV PROTOCOL; Start 09/11/16 at 10:00 Calcium/Vitamin D (Oyster Shell/ Vit-D (500/200)) 1 tab BID PO Last administered on 10/15/16 09:10; Admin Dose 1 TAB; Start 09/12/16 at 14:00 IV Flush (NS 10 ml) 10 ml PRN PRN IV IV PROTOCOL; Start 09/21/16 at 12:00 Methadone HCl 2 mg 2 mg Q6 PO Last administered on 10/15/16 12:05; Admin Dose 2 MG; Start 09/23/16 at 18:00 Potassium Chloride/Sodium Chloride 1,000 ml @ 70 mls/hr [id number] IV Last administered on 10/15/16 04:31; Admin Dose 70 MLS/HR; Start 09/28/16 at 16:30 Ondansetron HCl/ Sodium Chloride (Zofran Inj/NS) 54 ml @ 216 mls/hr Q12H PRN IV NAUSEA AND/OR VOMITING; Start 09/29/16 at 22:00 Prednisone 5 mg 5 mg BID PO Last administered on 10/15/16 09:17; Admin Dose 5 MG; Start 09/29/16 at 21:00 Docetaxel 45 mg/ Sodium Chloride 100 ml @ 100 mls/hr Th@22 IV Last administered on 10/13/16 22:33; Admin Dose 100 MLS/HR; Start 10/06/16 at 22:00 ; Stop 10/27/16 at 22:59 Ondansetron HCl/ Dexamethasone/ Dextrose (Zofran Inj/ Decadron/D5W) 60 ml @ 252 mls/hr Th@2130 IV Last administered on 10/13/16 21:45; Admin Dose 252 MLS/ HR; Start 10/06/16 at 21:30; Stop 10/27/16 at 21:45 Hydromorphone HCl (Dilaudid) 1.5 mg Q3H PRN IV PAIN Last administered on 09:10; Admin Dose 1.5 MG; Start 10/07/16 at 03:00 Senna (Senokot) 2 tab BID PO Last administered on 10/13/16 09:23; Admin Dose 2 TAB; Start 10/07/16 at 03:00 Bisacodyl (Dulcolax Supp) [address] CONSTIPATION Last administered on 10/07/16 03:07; Admin Dose 10 MG; Start 10/07/16 at 03:00 Vancomycin HCl (Vancomycin Oral Syringe) 250 mg Q6 PO Last administered on 10/15 12:05; Admin Dose 250 MG; Start 10/10/16 at 18:00 MARLY YEAGER MD Oct 15, 2016 15:29
[2016-10-15 19:26] VITALS: BP 91/59; RESP 20
--- NOTE | 2016-10-15 22:59 | CONS ---
Date/Time of Note Date/Time of Note DATE: 10/15/16 TIME: 22:59 Assessment/Plan Assessment/Plan Chief Complaint/Hosp Course Metastatic prostate cancer. POS CHEMO # 2 chemotherapy and steroids - PER PROTOCOL Chemotherapy Docetaxel (Taxotere) 30 mg/m2 IV over 30 minutes once per day on days 1, 8, 15, 22, 29 Prednisone (Sterapred) 5 mg PO BID on days 1 to 42 Supportive medications Dexamethasone (Decadron) 8 mg (route not specified) once 1 hour before Docetaxel (Taxotere) Antiemetics "according to local practice" 42-day cycle for up to 5 cycles ANEMIA POST PRBC MONITOR CLOSELY OBSERVE FOR BLEEDING AND HEMOLYSIS Thrombocytopenia. Continue to monitor platelets. transfuse as needed PANCYTOPENIA MONITOR DECONDITIONING PT Acute on chronic back pain. Dr. Ferguson is following the patient in pain management. Continue methadone and Dilaudid p.r.n. for breakthrough pain. Clostridium difficile colitis. Continue Flagyl and contact isolation- per ID Problems: Consultation Date/Type/Reason Admit Date/Time Sep 06, 2016 at 22:01 Initial Consult Date 09/08/16 Referring Provider: TIMOTHY MARAVILLA MD 24 HR Interval Summary Free Text/Dictation all noted platelet- improving + DIARRHEA ON ATB NO BLEEDING Exam/Review of Systems Vital Signs Vitals Vital Signs Date Time Temp Pulse Resp B/P Pulse Ox O2 Delivery O2 Flow Rate FiO2 10/15/16 19:26 98.4 89 20 91/59 96 10/14/16 04:45 Room Air Intake and Output 10/14/16 10/14/16 10/15/16 15:00 23:00 07:00 Intake Total 1260 ml 1020 ml Output Total 750 ml 600 ml Balance 510 ml 420 ml Exam Constitutional: alert, oriented Psych: nl mood/affect Head: normocephalic Eyes: EOMI, nl conjunctiva ENMT: nl external ears & nose Neck: non-tender Respiratory: clear to auscultation Cardiovascular: nl pulses Gastrointestinal: soft, tender (diffuse tenderness ) Extremities: normal pulses 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: nl speech Skin: nl turgor Lymph: nontender Results Result Diagram: 10/15/16 0420 10/15/16 0420 Results 24 hrs Laboratory Tests Test 10/15/16 04:20 10/15/16 11:45 Alanine Aminotransferase (ALT/SGPT) 23 Albumin 2.1 L Albumin/Globulin Ratio 0.75 Alkaline Phosphatase 500 H Anion Gap 9 Aspartate Amino Transf (AST/SGOT) 23 Basophils # 0.0 Basophils % 0.4 Blood Morphology Comment Blood Urea Nitrogen 4 L Calcium Level 7.2 L Carbon Dioxide Level 25 Chloride Level 104 Creatinine 0.30 L Direct Bilirubin 0.00 Eosinophils # 0.0 Eosinophils % 0.0 Globulin 2.80 Glucose Level 105 Hematocrit 23.8 L Hemoglobin 8.5 L Indirect Bilirubin 0.1 Lymphocytes # 0.3 L Lymphocytes % 5.8 L Mean Corpuscular Hemoglobin 29.5 Mean Corpuscular Hemoglobin Concent 35.6 Mean Corpuscular Volume 83.0 Mean Platelet Volume 7.9 Monocytes # 0.3 Monocytes % 6.3 Neutrophils # 4.1 Neutrophils % 87.5 H Nucleated Red Blood Cells # 0.0 Nucleated Red Blood Cells % 0.0 Platelet Count 110 L Potassium Level 3.9 Red Blood Count 2.87 L Red Cell Distribution Width 16.0 H Sodium Level 134 L Total Bilirubin 0.1 L Total Protein 4.9 L White Blood Count 4.7 L Stool Occult Blood NEGATIVE Medications Medications Current Medications Bicalutamide (Casodex) 50 mg QAM PO Last administered on 10/15/16 09:14; Admin Dose 50 MG; Start 09/07/16 at 09:00 Docusate Sodium (Colace) 100 mg BID PRN PO CONSTIPATION Last administered on 05:22; Admin Dose 100 MG; Start 09/07/16 at 00:00 Escitalopram Oxalate (Lexapro) 5 mg DAILY PO Last administered on 10/15/16 09: 09; Admin Dose 5 MG; Start 09/07/16 at 09:00 Megestrol Acetate (Megace Susp) 400 mg BID PO Last administered on 10/15/16 21 :31; Admin Dose 400 MG; Start 09/07/16 at 09:00 Methylnaltrexone [place] (Relistor) 12 mg Q48H SC Last administered on 00:27; Admin Dose 12 MG; Start 09/07/16 at 00:00 Ondansetron HCl (Zofran Tab) 4 mg Q6H PRN PO NAUSEA AND/OR VOMITING Last administered on 10/05/16 19:46; Admin Dose 4 MG; Start 09/07/16 at 00:00 Acetaminophen (Tylenol Tab) 500 mg Q4H PRN PO PAIN AND OR ELEVATED TEMP Last administered on 10/05/16 15:37; Admin Dose 500 MG; Start 09/07/16 at 21:30 IV Flush (NS 10 ml) 10 ml PRN PRN IV IV PROTOCOL; Start 09/11/16 at 10:00 Calcium/Vitamin D (Oyster Shell/ Vit-D (500/200)) 1 tab BID PO Last administered on 10/15/16 21:31; Admin Dose 1 TAB; Start 09/12/16 at 14:00 IV Flush (NS 10 ml) 10 ml PRN PRN IV IV PROTOCOL; Start 09/21/16 at 12:00 Methadone HCl 2 mg 2 mg Q6 PO Last administered on 10/15/16 18:02; Admin Dose 2 MG; Start 09/23/16 at 18:00 Potassium Chloride/Sodium Chloride 1,000 ml @ 70 mls/hr [id number] IV Last administered on 10/15/16 21:31; Admin Dose 70 MLS/HR; Start 09/28/16 at 16:30 Ondansetron HCl/ Sodium Chloride (Zofran Inj/NS) 54 ml @ 216 mls/hr Q12H PRN IV NAUSEA AND/OR VOMITING; Start 09/29/16 at 22:00 Prednisone 5 mg 5 mg BID PO Last administered on 10/15/16 21:31; Admin Dose 5 MG; Start 09/29/16 at 21:00 Docetaxel 45 mg/ Sodium Chloride 100 ml @ 100 mls/hr Th@22 IV Last administered on 10/13/16 22:33; Admin Dose 100 MLS/HR; Start 10/06/16 at 22:00 ; Stop 10/27/16 at 22:59 Ondansetron HCl/ Dexamethasone/ Dextrose (Zofran Inj/ Decadron/D5W) 60 ml @ 252 mls/hr Th@2130 IV Last administered on 10/13/16 21:45; Admin Dose 252 MLS/ HR; Start 10/06/16 at 21:30; Stop 10/27/16 at 21:45 Hydromorphone HCl (Dilaudid) 1.5 mg Q3H PRN IV PAIN Last administered on 21:31; Admin Dose 1.5 MG; Start 10/07/16 at 03:00 Senna (Senokot) 2 tab BID PO Last administered on 10/13/16 09:23; Admin Dose 2 TAB; Start 10/07/16 at 03:00 Bisacodyl (Dulcolax Supp) 10 mg DAILY PRN [place] CONSTIPATION Last administered on 10/07/16 03:07; Admin Dose 10 MG; Start 10/07/16 at 03:00 Vancomycin HCl (Vancomycin Oral Syringe) 250 mg Q6 PO Last administered on 10/15 18:01; Admin Dose 250 MG; Start 10/10/16 at 18:00 JARAD CHOI MD Oct 15, 2016 22:59
[2016-10-16] MEDS: HYDROmorphONE 2 MG/ML SYG IV PRN ×6 (02:24→22:16)
[2016-10-16] MEDS: VANCOMYCIN HCL 250 MG/5ML POSYG PO SCH ×4 (05:56→23:53)
[2016-10-16] MEDS: PANTOPRAZOLE (EC) 40 MG TAB PO SCH ×2 (05:56→17:52)
[2016-10-16] MEDS: METHADONE (1 MG/1 ML PO SYG) PO SCH ×4 (05:57→23:53)
[2016-10-16 07:04] LABS: POTASSIUM 3.9 mmol/L (3.5-5.1)
[2016-10-16 07:06] LABS: BILIRUBIN,INDIRECT 0.2 mg/dl (0-1.1); BILIRUBIN,TOTAL 0.2 mg/dl (0.2-1.3); CREATININE 0.33 mg/dl (0.61-1.24)
[2016-10-16 07:07] LABS: ALBUMIN/GLOBULIN RATIO 0.76; TOTAL PROTEIN 4.6 g/dl (6.1-8.1)
[2016-10-16 07:14] LABS: HEMOGLOBIN 7.5 g/dl (14.0-18.0); MEAN CORPUSCULAR HEMOGLOBIN 29.4 pg (29.0-33.0); MEAN CORPUSCULAR HGB CONC 35.5 g/dl (32.0-37.0); MEAN CORPUSCULAR VOLUME 82.8 fl (82.0-101.0); MEAN PLATELET VOLUME 7.9 fl (7.4-10.4); PLATELET COUNT 96 10^3/UL (140-440); RED BLOOD COUNT 2.54 10^6/ul (4.70-6.10); RED CELL DISTRIBUTION WIDTH 15.6 % (11.5-14.5); UNCORRECTED WBC 2.9 10^3/ul (4.8-10.8); WHITE BLOOD COUNT 2.9 10^3/ul (4.8-10.8)
[2016-10-16 07:17] LABS: CONDITION 1; LH ANALYZER COMMENTS 1; SUSPECT 1
[2016-10-16 07:38] VITALS: BP 93/60; RESP 14
[2016-10-16] MEDS: ESCITALOPRAM 10 MG TAB PO SCH (08:53)
[2016-10-16] MEDS: CALCIUM/VITAMIN D (500/200) TAB PO SCH ×2 (08:53→21:06)
[2016-10-16] MEDS: MEGESTROL (40 MG/ML) 10ML CUP PO SCH ×2 (08:54→21:06)
[2016-10-16] MEDS: predniSONE 5 MG TAB PO SCH ×2 (08:54→21:06)
[2016-10-16] MEDS: SENNA TAB PO SCH ×2 (08:54→21:00)
[2016-10-16] MEDS: BICALUTAMIDE 50 MG TAB PO SCH (08:55)
--- NOTE | 2016-10-16 09:50 | CONS ---
Date/Time of Note Date/Time of Note DATE: 10/16/16 TIME: 09:47 Assessment/Plan Assessment/Plan Chief Complaint/Hosp Course Impression: 1. Clostridium difficile colitis. Continues to have persistent diarrhea 2. Abdominal pain: worsening, associated with nausea and vomiting. ddx include C. diff coitis vs side effects from chemotherapy vs gastritis, duodenitis, esophagitis. 3. anemia 4. Metastatic prostate cancer. Dr. Hernandez is following patient in oncology consultation. Continue chemotherapy and steroids. 5. MRSA 6. Abnormal LFTs Recommendations: 1. Continue vancomycin for C. diff. Consider fidoxomycin per ID. 2. f/uCMV PCR as pt is immunosuppressed and to r/o possible CMV colitis/ enteritis as cause of diarrhea 3. continue pain control 4. ordered occult stool blood to r/o GIB 5. abx per ID 6. increase protonix from qd to bid dosing. 7. continue other supportive care per pcp and other consultants 8. Dr. Novak to resume care of this patient tomorrow Problems: Consultation Date/Type/Reason Admit Date/Time Sep 06, 2016 at 22:01 Initial Consult Date 09/08/16 Type of Consultation: GI Referring Provider: TIMOTHY MARAVILLA MD 24 HR Interval Summary Free Text/Dictation complains of whole body pain, mainly in pelvic region, lethargic Exam/Review of Systems Vital Signs Vitals Vital Signs Date Time Temp Pulse Resp B/P Pulse Ox O2 Delivery O2 Flow Rate FiO2 10/16/16 07:38 98.8 81 14 93/60 93 10/14/16 04:45 Room Air Intake and Output 10/15/16 10/15/16 10/16/16 15:00 23:00 07:00 Intake Total 1180 ml 1060 ml Output Total 580 ml Balance 600 ml 1060 ml Exam Constitutional: frail Head: atraumatic, normocephalic Eyes: EOMI, nl conjunctiva, nl lids, nl sclera ENMT: mucosa pink and moist, nl external ears & nose, nl lips & teeth, nl nasal mucosa & septum Neck: non-tender, supple Respiratory: clear to auscultation, normal air movement Cardiovascular: nl pulses, regular rate and rhythm Gastrointestinal: bowel sounds, soft, tender (diffusely tender, no r/g) Results Result Diagram: 10/16/16 0445 10/16/16 0445 Results 24 hrs Laboratory Tests Test 10/15/16 11:45 10/16/16 04:45 Stool Occult Blood NEGATIVE Alanine Aminotransferase (ALT/SGPT) 26 Albumin 2.0 L Albumin/Globulin Ratio 0.76 Alkaline Phosphatase 421 H Anion Gap 10 Aspartate Amino Transf (AST/SGOT) 21 Basophils # Pending Basophils % Pending Blood Morphology Comment Blood Urea Nitrogen 4 L Calcium Level 7.0 L Carbon Dioxide Level 26 Chloride Level 103 Creatinine 0.33 L Direct Bilirubin 0.00 Eosinophils # Pending Eosinophils % Pending Globulin 2.60 Glucose Level 79 Hematocrit 21.0 L Hemoglobin 7.5 L Indirect Bilirubin 0.2 Lymphocytes # Pending Lymphocytes % Pending Mean Corpuscular Hemoglobin 29.4 Mean Corpuscular Hemoglobin Concent 35.5 Mean Corpuscular Volume 82.8 Mean Platelet Volume 7.9 Monocytes # Pending Monocytes % Pending Neutrophils # Pending Neutrophils % Pending Nucleated Red Blood Cells # Pending Nucleated Red Blood Cells % Pending Platelet Count 96 L Potassium Level 3.9 Red Blood Count 2.54 L Red Cell Distribution Width 15.6 H Sodium Level 135 Total Bilirubin 0.2 Total Protein 4.6 L White Blood Count 2.9 #L Medications Medications Current Medications Bicalutamide (Casodex) 50 mg QAM PO Last administered on 10/16/16 08:55; Admin Dose 50 MG; Start 09/07/16 at 09:00 Docusate Sodium (Colace) 100 mg BID PRN PO CONSTIPATION Last administered on 05:22; Admin Dose 100 MG; Start 09/07/16 at 00:00 Escitalopram Oxalate (Lexapro) 5 mg DAILY PO Last administered on 10/16/16 08: 53; Admin Dose 5 MG; Start 09/07/16 at 09:00 Megestrol Acetate (Megace Susp) 400 mg BID PO Last administered on 10/16/16 08 :54; Admin Dose 400 MG; Start 09/07/16 at 09:00 Methylnaltrexone [place] (Relistor) 12 mg Q48H SC Last administered on 00:27; Admin Dose 12 MG; Start 09/07/16 at 00:00 Ondansetron HCl (Zofran Tab) 4 mg Q6H PRN PO NAUSEA AND/OR VOMITING Last administered on 10/05/16 19:46; Admin Dose 4 MG; Start 09/07/16 at 00:00 Acetaminophen (Tylenol Tab) 500 mg Q4H PRN PO PAIN AND OR ELEVATED TEMP Last administered on 10/05/16 15:37; Admin Dose 500 MG; Start 09/07/16 at 21:30 IV Flush (NS 10 ml) 10 ml PRN PRN IV IV PROTOCOL; Start 09/11/16 at 10:00 Calcium/Vitamin D ([place]yster [place]/ Vit-D (500/200)) 1 tab BID PO Last administered on 10/16/16 08:53; Admin Dose 1 TAB; Start 09/12/16 at 14:00 IV Flush (NS 10 ml) 10 ml PRN PRN IV IV PROTOCOL; Start 09/21/16 at 12:00 Methadone HCl 2 mg 2 mg Q6 PO Last administered on 10/16/16 05:57; Admin Dose 2 MG; Start 09/23/16 at 18:00 Potassium Chloride/Sodium Chloride 1,000 ml @ 70 mls/hr [id number] IV Last administered on 10/15/16 21:31; Admin Dose 70 MLS/HR; Start 09/28/16 at 16:30 Ondansetron HCl/ Sodium Chloride (Zofran Inj/NS) 54 ml @ 216 mls/hr Q12H PRN IV NAUSEA AND/OR VOMITING; Start 09/29/16 at 22:00 Prednisone 5 mg 5 mg BID PO Last administered on 10/16/16 08:54; Admin Dose 5 MG; Start 09/29/16 at 21:00 Docetaxel 45 mg/ Sodium Chloride 100 ml @ 100 mls/hr Th@22 IV Last administered on 10/13/16 22:33; Admin Dose 100 MLS/HR; Start 10/06/16 at 22:00 ; Stop 10/27/16 at 22:59 Ondansetron HCl/ Dexamethasone/ Dextrose (Zofran Inj/ Decadron/D5W) 60 ml @ 252 mls/hr Th@2130 IV Last administered on 10/13/16 21:45; Admin Dose 252 MLS/ HR; Start 10/06/16 at 21:30; Stop 10/27/16 at 21:45 Hydromorphone HCl (Dilaudid) 1.5 mg Q3H PRN IV PAIN Last administered on 09:41; Admin Dose 1.5 MG; Start 10/07/16 at 03:00 Senna (Senokot) 2 tab BID PO Last administered on 10/13/16 09:23; Admin Dose 2 TAB; Start 10/07/16 at 03:00 Bisacodyl (Dulcolax Supp) 10 mg DAILY PRN SC CONSTIPATION Last administered on 10/07/16 03:07; Admin Dose 10 MG; Start 10/07/16 at 03:00 Vancomycin HCl (Vancomycin Oral Syringe) 250 mg Q6 PO Last administered on 10/16 05:56; Admin Dose 250 MG; Start 10/10/16 at 18:00 MARLY YEAGER MD Oct 16, 2016 09:50
[2016-10-16 10:25] LABS: LYMPHOCYTES # 0.2 10^3/ul (0.8-2.9); MONOCYTE # 0.2 10^3/ul (0.3-0.9); NEUTROPHIL # 2.1 10^3/ul (1.6-7.5)
[2016-10-16 10:26] LABS: ANISOCYTOSIS 1+
[2016-10-16 10:27] LABS: BURR CELLS OCCASIONAL
--- NOTE | 2016-10-16 11:54 | PN ---
Date/Time of Note Date/Time of Note DATE: 10/16/16 TIME: 11:51 Assessment/Plan VTE Prophylaxis VTE Prophylaxis Intervention: other Lines/Catheters IV Catheter Type (from Nrsg): PICC Line Central line still needed: Yes Urinary Cath still in place: Yes Reason Cath still needed: urinary retention Assessment/Plan Assessment/Plan 1. Clostridium difficile colitis. Continue vancomycin by mouth and contact isolation. 2. Metastatic prostate cancer. Dr. Hernandez is following patient in oncology consultation. Continue chemotherapy and steroids. 3. Thrombocytopenia. Continue to monitor platelets. 4. Acute on chronic back pain. Dr. Ferguson is following the patient in pain management. Continue methadone and Dilaudid p.r.n. for breakthrough pain. 5. Anemia - transfuse 2 units PRBC if ok with dr Lundberg - continue to monitor hemoglobin and hematocrit. 6. MRSA UTI, cont Vanco, Dr Schuler is following in infectious disease consultation. 7. Abnormal LFTs - per GI 8. Abdominal pain- diffuse - per GI Continue Protonix for peptic ulcer disease prophylaxis. . SCD for DVT prophylaxis Further recommendations based on clinical course. Plan of care discussed with Dr. Nichols. Subjective 24 Hr Interval Summary Free Text/Dictation nad, feels better. low H/H today. dw staff. Constitutional: no complaints Exam/Review of Systems Vital Signs Vitals Vital Signs Date Time Temp Pulse Resp B/P Pulse Ox O2 Delivery O2 Flow Rate FiO2 10/16/16 07:38 98.8 81 14 93/60 93 10/14/16 04:45 Room Air Intake and Output 10/15/16 10/15/16 10/16/16 15:00 23:00 07:00 Intake Total 1180 ml 1060 ml Output Total 580 ml Balance 600 ml 1060 ml Exam Constitutional: alert, oriented Psych: nl mood/affect Head: atraumatic Eyes: PERRL, nl sclera ENMT: nl external ears & nose Neck: non-tender Respiratory: clear to auscultation Cardiovascular: nl pulses Gastrointestinal: non-tender, soft Musculoskeletal: nl extremities to inspection Extremities: normal pulses 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: nl speech, other Skin: nl turgor Results Result Diagram: 10/16/165 10/16/165 Results 24 hrs Laboratory Tests Test 10/16/16 04:45 Alanine Aminotransferase (ALT/SGPT) 26 Albumin 2.0 L Albumin/Globulin Ratio 0.76 Alkaline Phosphatase 421 H Anion Gap 10 Anisocytosis 1+ Aspartate Amino Transf (AST/SGOT) 21 Band Neutrophils % 13.0 H Basophils # Basophils % Blood Morphology Comment Blood Urea Nitrogen 4 L Calcium Level 7.0 L Carbon Dioxide Level 26 Chloride Level 103 Creatinine 0.33 L Differential Comment MANUAL DIFF Direct Bilirubin 0.00 Eosinophils # Eosinophils % Globulin 2.60 Glucose Level 79 Hematocrit 21.0 L Hemoglobin 7.5 L Indirect Bilirubin 0.2 Large Platelets RARE Lymphocytes # 0.2 L Lymphocytes % 7.0 L Mean Corpuscular Hemoglobin 29.4 Mean Corpuscular Hemoglobin Concent 35.5 Mean Corpuscular Volume 82.8 Mean Platelet Volume 7.9 Monocytes # 0.2 L Monocytes % 7.0 Myelocytes # 0.0 Myelocytes % 1.0 H Neutrophils # 2.1 Neutrophils % 72.0 Nucleated Red Blood Cells # Nucleated Red Blood Cells % Platelet Count 96 L Potassium Level 3.9 Red Blood Count 2.54 L Red Cell Distribution Width 15.6 H Sodium Level 135 Total Bilirubin 0.2 Total Protein 4.6 L White Blood Count 2.9 #L Medications Medications Current Medications Bicalutamide (Casodex) 50 mg QAM PO Last administered on 10/16/16 08:55; Admin Dose 50 MG; Start 09/07/16 at 09:00 Docusate Sodium (Colace) 100 mg BID PRN PO CONSTIPATION Last administered on 05:22; Admin Dose 100 MG; Start 09/07/16 at 00:00 Escitalopram Oxalate (Lexapro) 5 mg DAILY PO Last administered on 10/16/16 08: 53; Admin Dose 5 MG; Start 09/07/16 at 09:00 Megestrol Acetate (Megace Susp) 400 mg BID PO Last administered on 10/16/16 08 :54; Admin Dose 400 MG; Start 09/07/16 at 09:00 Methylnaltrexone [place] (Relistor) 12 mg Q48H SC Last administered on 00:27; Admin Dose 12 MG; Start 09/07/16 at 00:00 Ondansetron HCl (Zofran Tab) 4 mg Q6H PRN PO NAUSEA AND/OR VOMITING Last administered on 10/05/16 19:46; Admin Dose 4 MG; Start 09/07/16 at 00:00 Acetaminophen (Tylenol Tab) 500 mg Q4H PRN PO PAIN AND OR ELEVATED TEMP Last administered on 10/05/16 15:37; Admin Dose 500 MG; Start 09/07/16 at 21:30 IV Flush (NS 10 ml) 10 ml PRN PRN IV IV PROTOCOL; Start 09/11/16 at 10:00 Calcium/Vitamin D (Oyster Shell/ Vit-D (500/200)) 1 tab BID PO Last administered on 10/16/16 08:53; Admin Dose 1 TAB; Start 09/12/16 at 14:00 IV Flush (NS 10 ml) 10 ml PRN PRN IV IV PROTOCOL; Start 09/21/16 at 12:00 Methadone HCl 2 mg 2 mg Q6 PO Last administered on 10/16/16 05:57; Admin Dose 2 MG; Start 09/23/16 at 18:00 Potassium Chloride/Sodium Chloride 1,000 ml @ 70 mls/hr [id number] IV Last administered on 10/15/16 21:31; Admin Dose 70 MLS/HR; Start 09/28/16 at 16:30 Ondansetron HCl/ Sodium Chloride (Zofran Inj/NS) 54 ml @ 216 mls/hr Q12H PRN IV NAUSEA AND/OR VOMITING; Start 09/29/16 at 22:00 Prednisone 5 mg 5 mg BID PO Last administered on 10/16/16 08:54; Admin Dose 5 MG; Start 09/29/16 at 21:00 Docetaxel 45 mg/ Sodium Chloride 100 ml @ 100 mls/hr Th@22 IV Last administered on 10/13/16 22:33; Admin Dose 100 MLS/HR; Start 10/06/16 at 22:00 ; Stop 10/27/16 at 22:59 Ondansetron HCl/ Dexamethasone/ Dextrose (Zofran Inj/ Decadron/D5W) 60 ml @ 252 mls/hr Th@2130 IV Last administered on 10/13/16 21:45; Admin Dose 252 MLS/ HR; Start 10/06/16 at 21:30; Stop 10/27/16 at 21:45 Hydromorphone HCl (Dilaudid) 1.5 mg Q3H PRN IV PAIN Last administered on 09:41; Admin Dose 1.5 MG; Start 10/07/16 at 03:00 Senna (Senokot) 2 tab BID PO Last administered on 10/13/16 09:23; Admin Dose 2 TAB; Start 10/07/16 at 03:00 Bisacodyl (Dulcolax Supp) 10 mg DAILY PRN [place] CONSTIPATION Last administered on 10/07/16 03:07; Admin Dose 10 MG; Start 10/07/16 at 03:00 Vancomycin HCl (Vancomycin Oral Syringe) 250 mg Q6 PO Last administered on 10/16 05:56; Admin Dose 250 MG; Start 10/10/16 at 18:00 KENDAL BELLO Oct 16, 2016 11:54
[2016-10-16] MEDS ORDERED: SOD CHLORIDE 0.9% 250 ML IV* ONE (11:56)
[2016-10-16] MEDS: NS + KCL 20 MEQ 1,000 ML IV SCH (12:56)
--- NOTE | 2016-10-16 15:21 | CONS ---
Date/Time of Note Date/Time of Note DATE: 10/16/16 TIME: 15:17 Assessment/Plan Assessment/Plan Chief Complaint/Hosp Course D PROGRESS NOTE TOTAL ABX DAY # Vanco PO s/p Vanco IV x 11 days => OFF day #2 24H INTERVAL SUMMARY * Persistent diarrhea -> repeat C.Diff (+) 10/15Resting comfortably, VSS, NAD, no fevers * Chart reviewed 10 BMs today w/multiple BMs yesterday and 11 BMs Monday PHYSICAL EXAMINATION: GENERAL: 60 yo cachectic M, resting comfortably, NAD HEENT: Unremarkable NECK: Supple, trachea midline. CHEST: Equal chest rise bilaterally, without dyspnea on observation HEART: Pulse RRR ABDOMEN: Soft EXTREMITIES: Warm SKIN: See photos ID ASSESSMENT: 60 yo M w/{MHx Metastatic Prostate Cancer admit with: 1. POS CHEMO Tx + Steroids Rx per HemeOnc -> Prostate Cancer w/extensive sclerotic metastatic disease/aggressive periostitis of the pelvis 2. Pancytopenia per #1 3. Persistent C difficile colitis with diarrhea 4. Methicillin-resistant Staphylococcus aureus urinary tract infection-> s/p Vanco IV x day #11. 5. Acute/chronic bone pain 2/2 #1 (-)MRSA Nares INVASIVES: ABX ALLERGY: KNDA CURRENT ABX: TOTAL ABX DAY #Vanco PO s/p Vanco IV ID RECOMMENDATIONS: 1. Continue Vanco Liquid PO -> C.Diff persisting w/significant diarrhea * Start 3-ABX regime w/Flagyl 250mg po Q6 + Rifaximin 200mg TID x 4 days * If no improvement, then trial Deficid 2. f/uCMV PCR as pt is immunosuppressed and to r/o possible CMV colitis/ enteritis as cause of diarrhea . . Problems: Consultation Date/Type/Reason Admit Date/Time Sep 06, 2016 at 22:01 Initial Consult Date 09/08/16 Type of Consultation: ID Referring Provider: TIMOTHY MARAVILLA MD Exam/Review of Systems Vital Signs Vitals Vital Signs Date Time Temp Pulse Resp B/P Pulse Ox O2 Delivery O2 Flow Rate FiO2 10/16/16 07:38 98.8 81 14 93/60 93 10/14/16 04:45 Room Air Intake and Output 10/15/16 10/15/16 10/16/16 15:00 23:00 07:00 Intake Total 1180 ml 1060 ml Output Total 580 ml Balance 600 ml 1060 ml Results Result Diagram: 10/16/1644410/16/16444 Results 24 hrs Laboratory Tests Test 10/16/16 04:45 Alanine Aminotransferase (ALT/SGPT) 26 Albumin 2.0 L Albumin/Globulin Ratio 0.76 Alkaline Phosphatase 421 H Anion Gap 10 Anisocytosis 1+ Aspartate Amino Transf (AST/SGOT) 21 Band Neutrophils % 13.0 H Basophils # Basophils % Blood Morphology Comment Blood Urea Nitrogen 4 L Calcium Level 7.0 L Carbon Dioxide Level 26 Chloride Level 103 Creatinine 0.33 L Differential Comment MANUAL DIFF Direct Bilirubin 0.00 Eosinophils # Eosinophils % Globulin 2.60 Glucose Level 79 Hematocrit 21.0 L Hemoglobin 7.5 L Indirect Bilirubin 0.2 Large Platelets RARE Lymphocytes # 0.2 L Lymphocytes % 7.0 L Mean Corpuscular Hemoglobin 29.4 Mean Corpuscular Hemoglobin Concent 35.5 Mean Corpuscular Volume 82.8 Mean Platelet Volume 7.9 Monocytes # 0.2 L Monocytes % 7.0 Myelocytes # 0.0 Myelocytes % 1.0 H Neutrophils # 2.1 Neutrophils % 72.0 Nucleated Red Blood Cells # Nucleated Red Blood Cells % Platelet Count 96 L Potassium Level 3.9 Red Blood Count 2.54 L Red Cell Distribution Width 15.6 H Sodium Level 135 Total Bilirubin 0.2 Total Protein 4.6 L White Blood Count 2.9 #L Medications Medications Current Medications Bicalutamide (Casodex) 50 mg QAM PO Last administered on 10/16/16 08:55; Admin Dose 50 MG; Start 09/07/16 at 09:00 Docusate Sodium (Colace) 100 mg BID PRN PO CONSTIPATION Last administered on 05:22; Admin Dose 100 MG; Start 09/07/16 at 00:00 Escitalopram Oxalate (Lexapro) 5 mg DAILY PO Last administered on 10/16/16 08: 53; Admin Dose 5 MG; Start 09/07/16 at 09:00 Megestrol Acetate (Megace Susp) 400 mg BID PO Last administered on 10/16/16 08 :54; Admin Dose 400 MG; Start 09/07/16 at 09:00 Methylnaltrexone [place] (Relistor) 12 mg Q48H SC Last administered on 00:27; Admin Dose 12 MG; Start 09/07/16 at 00:00 Ondansetron HCl (Zofran Tab) 4 mg Q6H PRN PO NAUSEA AND/OR VOMITING Last administered on 10/05/16 19:46; Admin Dose 4 MG; Start 09/07/16 at 00:00 Acetaminophen (Tylenol Tab) 500 mg Q4H PRN PO PAIN AND OR ELEVATED TEMP Last administered on 10/05/16 15:37; Admin Dose 500 MG; Start 09/07/16 at 21:30 IV Flush (NS 10 ml) 10 ml PRN PRN IV IV PROTOCOL; Start 09/11/16 at 10:00 Calcium/Vitamin D (Oyster Shell/ Vit-D (500/200)) 1 tab BID PO Last administered on 10/16/16 08:53; Admin Dose 1 TAB; Start 09/12/16 at 14:00 IV Flush (NS 10 ml) 10 ml PRN PRN IV IV PROTOCOL; Start 09/21/16 at 12:00 Methadone HCl 2 mg 2 mg Q6 PO Last administered on 10/16/16 12:57; Admin Dose 2 MG; Start 09/23/16 at 18:00 Potassium Chloride/Sodium Chloride 1,000 ml @ 70 mls/hr [id number] IV Last administered on 10/16/16 12:56; Admin Dose 70 MLS/HR; Start 09/28/16 at 16:30 Ondansetron HCl/ Sodium Chloride (Zofran Inj/NS) 54 ml @ 216 mls/hr Q12H PRN IV NAUSEA AND/OR VOMITING; Start 09/29/16 at 22:00 Prednisone 5 mg 5 mg BID PO Last administered on 10/16/16 08:54; Admin Dose 5 MG; Start 09/29/16 at 21:00 Docetaxel 45 mg/ Sodium Chloride 100 ml @ 100 mls/hr Th@22 IV Last administered on 10/13/16 22:33; Admin Dose 100 MLS/HR; Start 10/06/16 at 22:00 ; Stop 10/27/16 at 22:59 Ondansetron HCl/ Dexamethasone/ Dextrose (Zofran Inj/ Decadron/D5W) 60 ml @ 252 mls/hr Th@2130 IV Last administered on 10/13/16 21:45; Admin Dose 252 MLS/ HR; Start 10/06/16 at 21:30; Stop 10/27/16 at 21:45 Hydromorphone HCl (Dilaudid) 1.5 mg Q3H PRN IV PAIN Last administered on 15:05; Admin Dose 1.5 MG; Start 10/07/16 at 03:00 Senna (Senokot) 2 tab BID PO Last administered on 10/13/16 09:23; Admin Dose 2 TAB; Start 10/07/16 at 03:00 Bisacodyl (Dulcolax Supp) 10 mg DAILY PRN [place] CONSTIPATION Last administered on 10/07/16 03:07; Admin Dose 10 MG; Start 10/07/16 at 03:00 Vancomycin HCl (Vancomycin Oral Syringe) 250 mg Q6 PO Last administered on 10/16 13:01; Admin Dose 250 MG; Start 10/10/16 at 18:00 BRITTNEY DENTON NP Oct 16, 2016 15:21
[2016-10-16] MEDS: metroNIDAZOLE 250 MG TAB PO SCH ×2 (17:52→23:53)
--- NOTE | 2016-10-16 19:32 | CONS ---
Date/Time of Note Date/Time of Note DATE: 10/16/16 TIME: 19:30 Assessment/Plan Assessment/Plan Chief Complaint/Hosp Course Metastatic prostate cancer. POS CHEMO # 2 chemotherapy and steroids - PER PROTOCOL Chemotherapy Docetaxel (Taxotere) 30 mg/m2 IV over 30 minutes once per day on days 1, 8, 15, 22, 29 Prednisone (Sterapred) 5 mg PO BID on days 1 to 42 Supportive medications Dexamethasone (Decadron) 8 mg (route not specified) once 1 hour before Docetaxel (Taxotere) Antiemetics "according to local practice" 42-day cycle for up to 5 cycles ANEMIA POST PRBC MONITOR CLOSELY OBSERVE FOR BLEEDING AND HEMOLYSIS Thrombocytopenia. Continue to monitor platelets. transfuse as needed PANCYTOPENIA MONITOR NEUPOGEN PRN DECONDITIONING PT Acute on chronic back pain. Dr. Ferguson is following the patient in pain management. Continue methadone and Dilaudid p.r.n. for breakthrough pain. Clostridium difficile colitis. Continue Flagyl and contact isolation- per ID Problems: Consultation Date/Type/Reason Admit Date/Time Sep 06, 2016 at 22:01 Initial Consult Date 09/08/16 [facility] Referring Provider: TIMOTHY MARAVILLA MD 24 HR Interval Summary Free Text/Dictation ALL NOTED POST CHEMO COUNT DECREASING NO FEVER NO BLEEDING Exam/Review of Systems Vital Signs Vitals Vital Signs Date Time Temp Pulse Resp B/P Pulse Ox O2 Delivery O2 Flow Rate FiO2 10/16/16 07:38 98.8 81 14 93/60 93 10/14/16 04:45 Room Air Intake and Output 10/15/16 10/15/16 10/16/16 15:00 23:00 07:00 Intake Total 1180 ml 1060 ml Output Total 580 ml Balance 600 ml 1060 ml Exam Constitutional: alert, oriented Psych: nl mood/affect Head: normocephalic Eyes: EOMI, nl conjunctiva ENMT: nl external ears & nose Neck: non-tender Respiratory: clear to auscultation Cardiovascular: nl pulses Gastrointestinal: soft, tender (diffuse tenderness ) Extremities: normal pulses 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: nl speech Skin: nl turgor Lymph: nontender Results Result Diagram: 10/16/16 0445 10/16/16 0445 Results 24 hrs Laboratory Tests Test 10/16/16 04:45 Alanine Aminotransferase (ALT/SGPT) 26 Albumin 2.0 L Albumin/Globulin Ratio 0.76 Alkaline Phosphatase 421 H Anion Gap 10 Anisocytosis 1+ Aspartate Amino Transf (AST/SGOT) 21 Band Neutrophils % 13.0 H Basophils # Basophils % Blood Morphology Comment Blood Urea Nitrogen 4 L Calcium Level 7.0 L Carbon Dioxide Level 26 Chloride Level 103 Creatinine 0.33 L Differential Comment MANUAL DIFF Direct Bilirubin 0.00 Eosinophils # Eosinophils % Globulin 2.60 Glucose Level 79 Hematocrit 21.0 L Hemoglobin 7.5 L Indirect Bilirubin 0.2 Large Platelets RARE Lymphocytes # 0.2 L Lymphocytes % 7.0 L Mean Corpuscular Hemoglobin 29.4 Mean Corpuscular Hemoglobin Concent 35.5 Mean Corpuscular Volume 82.8 Mean Platelet Volume 7.9 Monocytes # 0.2 L Monocytes % 7.0 Myelocytes # 0.0 Myelocytes % 1.0 H Neutrophils # 2.1 Neutrophils % 72.0 Nucleated Red Blood Cells # Nucleated Red Blood Cells % Platelet Count 96 L Potassium Level 3.9 Red Blood Count 2.54 L Red Cell Distribution Width 15.6 H Sodium Level 135 Total Bilirubin 0.2 Total Protein 4.6 L White Blood Count 2.9 #L Medications Medications Current Medications Bicalutamide (Casodex) 50 mg QAM PO Last administered on 10/16/16 08:55; Admin Dose 50 MG; Start 09/07/16 at 09:00 Docusate Sodium (Colace) 100 mg BID PRN PO CONSTIPATION Last administered on 05:22; Admin Dose 100 MG; Start 09/07/16 at 00:00 Escitalopram Oxalate (Lexapro) 5 mg DAILY PO Last administered on 10/16/16 08: 53; Admin Dose 5 MG; Start 09/07/16 at 09:00 Megestrol Acetate (Megace Susp) 400 mg BID PO Last administered on 10/16/16 08 :54; Admin Dose 400 MG; Start 09/07/16 at 09:00 Methylnaltrexone [place] (Relistor) 12 mg Q48H SC Last administered on 00:27; Admin Dose 12 MG; Start 09/07/16 at 00:00 Ondansetron HCl (Zofran Tab) 4 mg Q6H PRN PO NAUSEA AND/OR VOMITING Last administered on 10/05/16 19:46; Admin Dose 4 MG; Start 09/07/16 at 00:00 Acetaminophen (Tylenol Tab) 500 mg Q4H PRN PO PAIN AND OR ELEVATED TEMP Last administered on 10/05/16 15:37; Admin Dose 500 MG; Start 09/07/16 at 21:30 IV Flush (NS 10 ml) 10 ml PRN PRN IV IV PROTOCOL; Start 09/11/16 at 10:00 Calcium/Vitamin D (Oyster Shell/ Vit-D (500/200)) 1 tab BID PO Last administered on 10/16/16 08:53; Admin Dose 1 TAB; Start 09/12/16 at 14:00 IV Flush (NS 10 ml) 10 ml PRN PRN IV IV PROTOCOL; Start 09/21/16 at 12:00 Methadone HCl 2 mg 2 mg Q6 PO Last administered on 10/16/16 17:55; Admin Dose 2 MG; Start 09/23/16 at 18:00 Potassium Chloride/Sodium Chloride 1,000 ml @ 70 mls/hr [id number] IV Last administered on 10/16/16 12:56; Admin Dose 70 MLS/HR; Start 09/28/16 at 16:30 Ondansetron HCl/ Sodium Chloride (Zofran Inj/NS) 54 ml @ 216 mls/hr Q12H PRN IV NAUSEA AND/OR VOMITING; Start 09/29/16 at 22:00 Prednisone 5 mg 5 mg BID PO Last administered on 10/16/16 08:54; Admin Dose 5 MG; Start 09/29/16 at 21:00 Docetaxel 45 mg/ Sodium Chloride 100 ml @ 100 mls/hr Th@22 IV Last administered on 10/13/16 22:33; Admin Dose 100 MLS/HR; Start 10/06/16 at 22:00 ; Stop 10/27/16 at 22:59 Ondansetron HCl/ Dexamethasone/ Dextrose (Zofran Inj/ Decadron/D5W) 60 ml @ 252 mls/hr Th@2130 IV Last administered on 10/13/16 21:45; Admin Dose 252 MLS/ HR; Start 10/06/16 at 21:30; Stop 10/27/16 at 21:45 Hydromorphone HCl (Dilaudid) 1.5 mg Q3H PRN IV PAIN Last administered on 18:25; Admin Dose 1.5 MG; Start 10/07/16 at 03:00 Senna (Senokot) 2 tab BID PO Last administered on 10/13/16 09:23; Admin Dose 2 TAB; Start 10/07/16 at 03:00 Bisacodyl (Dulcolax Supp) 10 mg DAILY PRN [place] CONSTIPATION Last administered on 10/07/16 03:07; Admin Dose 10 MG; Start 10/07/16 at 03:00 Vancomycin HCl (Vancomycin Oral Syringe) 250 mg Q6 PO Last administered on 10/16 18:26; Admin Dose 250 MG; Start 10/10/16 at 18:00 Metronidazole (Flagyl) 250 mg Q6 PO Last administered on 10/16/16 17:52; Admin Dose 250 MG; Start 10/16/16 at 18:00 Rifaximin (Xifaxan) 200 mg TID PO ; Start 10/16/16 at 21:00; Stop 10/20/16 at 20: 59 JARAD CHOI MD Oct 16, 2016 19:32
[2016-10-16 19:56] VITALS: BP 112/77; RESP 18
--- NOTE | 2016-10-16 20:04 | CONS ---
Date/Time of Note Date/Time of Note DATE: 09/18/16 VK LE TIME: 20:01 Assessment/Plan Assessment/Plan Chief Complaint/Hosp Course Metastatic prostate cancer. FAMILY CONFERENCE RE DX, PROGNOSIS AND TREATMENT OPTIONS RE: chemotherapy and steroids - PER PROTOCOL Chemotherapy Docetaxel (Taxotere) 30 mg/m2 IV over 30 minutes once per day on days 1, 8, 15, 22, 29 Prednisone (Sterapred) 5 mg PO BID on days 1 to 42 Supportive medications Dexamethasone (Decadron) 8 mg (route not specified) once 1 hour before Docetaxel (Taxotere) Antiemetics "according to local practice" 42-day cycle for up to 5 cycles ANEMIA POST PRBC MONITOR CLOSELY OBSERVE FOR BLEEDING AND HEMOLYSIS Thrombocytopenia. Continue to monitor platelets. transfuse as needed PANCYTOPENIA MONITOR DECONDITIONING PT Acute on chronic back pain. PAIN CONTROL Problems: Consultation Date/Type/Reason Admit Date/Time Sep 06, 2016 at 22:01 Initial Consult Date 09/08/16 Type of Consultation: [facility] Referring Provider: TIMOTHY MARAVILLA MD 24 HR Interval Summary Free Text/Dictation ALL NOTED DR WALLACE AND ASSOCIATE COVERAGE APPRECIATED D/W WITH PT AND FAMILY RE PLANS FOR CHEMO THEY WANT TO THINK RE IT Exam/Review of Systems Vital Signs Vitals Vital Signs Date Time Temp Pulse Resp B/P Pulse Ox O2 Delivery O2 Flow Rate FiO2 10/16/16 07:38 98.8 81 14 93/60 93 10/14/16 04:45 Room Air Intake and Output 10/15/16 10/15/16 10/16/16 15:00 23:00 07:00 Intake Total 1180 ml 1060 ml Output Total 580 ml Balance 600 ml 1060 ml Exam Constitutional: alert, oriented Psych: nl mood/affect Head: normocephalic Eyes: EOMI, nl conjunctiva ENMT: nl external ears & nose Neck: non-tender Respiratory: clear to auscultation Cardiovascular: nl pulses Gastrointestinal: soft, tender (diffuse tenderness ) Extremities: normal pulses 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: nl speech Skin: nl turgor Lymph: nontender Results Result Diagram: 10/16/16 0445 10/16/165 Results 24 hrs Laboratory Tests Test 10/16/16 04:45 Alanine Aminotransferase (ALT/SGPT) 26 Albumin 2.0 L Albumin/Globulin Ratio 0.76 Alkaline Phosphatase 421 H Anion Gap 10 Anisocytosis 1+ Aspartate Amino Transf (AST/SGOT) 21 Band Neutrophils % 13.0 H Basophils # Basophils % Blood Morphology Comment Blood Urea Nitrogen 4 L Calcium Level 7.0 L Carbon Dioxide Level 26 Chloride Level 103 Creatinine 0.33 L Differential Comment MANUAL DIFF Direct Bilirubin 0.00 Eosinophils # Eosinophils % Globulin 2.60 Glucose Level 79 Hematocrit 21.0 L Hemoglobin 7.5 L Indirect Bilirubin 0.2 Large Platelets RARE Lymphocytes # 0.2 L Lymphocytes % 7.0 L Mean Corpuscular Hemoglobin 29.4 Mean Corpuscular Hemoglobin Concent 35.5 Mean Corpuscular Volume 82.8 Mean Platelet Volume 7.9 Monocytes # 0.2 L Monocytes % 7.0 Myelocytes # 0.0 Myelocytes % 1.0 H Neutrophils # 2.1 Neutrophils % 72.0 Nucleated Red Blood Cells # Nucleated Red Blood Cells % Platelet Count 96 L Potassium Level 3.9 Red Blood Count 2.54 L Red Cell Distribution Width 15.6 H Sodium Level 135 Total Bilirubin 0.2 Total Protein 4.6 L White Blood Count 2.9 #L Medications Medications Current Medications Bicalutamide (Casodex) 50 mg QAM PO Last administered on 10/16/16 08:55; Admin Dose 50 MG; Start 09/07/16 at 09:00 Docusate Sodium (Colace) 100 mg BID PRN PO CONSTIPATION Last administered on 05:22; Admin Dose 100 MG; Start 09/07/16 at 00:00 Escitalopram Oxalate (Lexapro) 5 mg DAILY PO Last administered on 10/16/16 08: 53; Admin Dose 5 MG; Start 09/07/16 at 09:00 Megestrol Acetate (Megace Susp) 400 mg BID PO Last administered on 10/16/16 08 :54; Admin Dose 400 MG; Start 09/07/16 at 09:00 Methylnaltrexone [place] (Relistor) 12 mg Q48H SC Last administered on 00:27; Admin Dose 12 MG; Start 09/07/16 at 00:00 Ondansetron HCl (Zofran Tab) 4 mg Q6H PRN PO NAUSEA AND/OR VOMITING Last administered on 10/05/16 19:46; Admin Dose 4 MG; Start 09/07/16 at 00:00 Acetaminophen (Tylenol Tab) 500 mg Q4H PRN PO PAIN AND OR ELEVATED TEMP Last administered on 10/05/16 15:37; Admin Dose 500 MG; Start 09/07/16 at 21:30 IV Flush (NS 10 ml) 10 ml PRN PRN IV IV PROTOCOL; Start 09/11/16 at 10:00 Calcium/Vitamin D (Oyster Shell/ Vit-D (500/200)) 1 tab BID PO Last administered on 10/16/16 08:53; Admin Dose 1 TAB; Start 09/12/16 at 14:00 IV Flush (NS 10 ml) 10 ml PRN PRN IV IV PROTOCOL; Start 09/21/16 at 12:00 Methadone HCl 2 mg 2 mg Q6 PO Last administered on 10/16/16 17:55; Admin Dose 2 MG; Start 09/23/16 at 18:00 Potassium Chloride/Sodium Chloride 1,000 ml @ 70 mls/hr [id number] IV Last administered on 10/16/16 12:56; Admin Dose 70 MLS/HR; Start 09/28/16 at 16:30 Ondansetron HCl/ Sodium Chloride (Zofran Inj/NS) 54 ml @ 216 mls/hr Q12H PRN IV NAUSEA AND/OR VOMITING; Start 09/29/16 at 22:00 Prednisone 5 mg 5 mg BID PO Last administered on 10/16/16 08:54; Admin Dose 5 MG; Start 09/29/16 at 21:00 Docetaxel 45 mg/ Sodium Chloride 100 ml @ 100 mls/hr Th@22 IV Last administered on 10/13/16 22:33; Admin Dose 100 MLS/HR; Start 10/06/16 at 22:00 ; Stop 10/27/16 at 22:59 Ondansetron HCl/ Dexamethasone/ Dextrose (Zofran Inj/ Decadron/D5W) 60 ml @ 252 mls/hr Th@2130 IV Last administered on 10/13/16 21:45; Admin Dose 252 MLS/ HR; Start 10/06/16 at 21:30; Stop 10/27/16 at 21:45 Hydromorphone HCl (Dilaudid) 1.5 mg Q3H PRN IV PAIN Last administered on 18:25; Admin Dose 1.5 MG; Start 10/07/16 at 03:00 Senna (Senokot) 2 tab BID PO Last administered on 10/13/16 09:23; Admin Dose 2 TAB; Start 10/07/16 at 03:00 Bisacodyl (Dulcolax Supp) 10 mg DAILY PRN [place] CONSTIPATION Last administered on 10/07/16 03:07; Admin Dose 10 MG; Start 10/07/16 at 03:00 Vancomycin HCl (Vancomycin Oral Syringe) 250 mg Q6 PO Last administered on 10/16 18:26; Admin Dose 250 MG; Start 10/10/16 at 18:00 Metronidazole (Flagyl) 250 mg Q6 PO Last administered on 10/16/16 17:52; Admin Dose 250 MG; Start 10/16/16 at 18:00 Rifaximin (Xifaxan) 200 mg TID PO ; Start 10/16/16 at 21:00; Stop 10/20/16 at 20: 59 JARAD CHOI MD Oct 16, 2016 20:03
[2016-10-16 21:00] VITALS: BP 112/77; PULSE 103; RESP 16
[2016-10-16] MEDS: RIFAXIMIN 200 MG TAB PO SCH (21:06)
[2016-10-16 22:00] VITALS: BP 112/66; PULSE 82; RESP 18
[2016-10-16] MEDS: METHYLNALTREXONE 12 MG/0.6 ML VIAL SC SCH (23:54)
[2016-10-17] MEDS: HYDROmorphONE 2 MG/ML SYG IV PRN ×5 (01:08→18:40)
[2016-10-17] MEDS: NS + KCL 20 MEQ 1,000 ML IV SCH ×3 (03:48→23:07)
[2016-10-17 05:38] LABS: ALBUMIN 2.3 g/dl (3.3-4.9)
[2016-10-17 05:40] LABS: ALBUMIN/GLOBULIN RATIO 0.82; BILIRUBIN,INDIRECT 0.3 mg/dl (0-1.1); BILIRUBIN,TOTAL 0.3 mg/dl (0.2-1.3); CREATININE 0.29 mg/dl (0.61-1.24); TOTAL PROTEIN 5.1 g/dl (6.1-8.1)
[2016-10-17 05:41] LABS: CALCIUM 7.3 mg/dl (8.4-10.2)
[2016-10-17] MEDS: VANCOMYCIN HCL 250 MG/5ML POSYG PO SCH (05:53)
[2016-10-17] MEDS: METHADONE (1 MG/1 ML PO SYG) PO SCH ×4 (05:53→23:17)
[2016-10-17] MEDS: metroNIDAZOLE 250 MG TAB PO SCH (05:53)
[2016-10-17 06:22] LABS: BASOPHILS % 0.2 % (0.0-2.0); EOSINOPHILS % 0.1 % (0.0-7.0); HEMATOCRIT 33.1 % (42.0-52.0); HEMOGLOBIN 11.7 g/dl (14.0-18.0); LYMPHOCYTES # 0.5 10^3/ul (0.8-2.9); LYMPHOCYTES % 18.9 % (15.0-51.0); MEAN CORPUSCULAR HEMOGLOBIN 29.5 pg (29.0-33.0); MEAN CORPUSCULAR HGB CONC 35.4 g/dl (32.0-37.0); MEAN CORPUSCULAR VOLUME 83.1 fl (82.0-101.0); MONOCYTE # 0.2 10^3/ul (0.3-0.9); MONOCYTES % 8.1 % (0.0-11.0); NEUTROPHILS % 72.7 % (39.0-77.0); PLATELET COUNT 88 10^3/UL (140-440); RED BLOOD COUNT 3.98 10^6/ul (4.70-6.10); RED CELL DISTRIBUTION WIDTH 15.6 % (11.5-14.5); UNCORRECTED WBC 2.7 10^3/ul (4.8-10.8); WHITE BLOOD COUNT 2.7 10^3/ul (4.8-10.8)
[2016-10-17 06:34] LABS: CONDITION 1; LH ANALYZER COMMENTS 1; SUSPECT 1
[2016-10-17 08:08] VITALS: BP 122/78; RESP 20
[2016-10-17] MEDS: PANTOPRAZOLE (EC) 40 MG TAB PO SCH ×2 (08:35→17:28)
[2016-10-17] MEDS: ESCITALOPRAM 10 MG TAB PO SCH (08:35)
[2016-10-17] MEDS: MEGESTROL (40 MG/ML) 10ML CUP PO SCH ×2 (08:36→22:52)
[2016-10-17] MEDS: CALCIUM/VITAMIN D (500/200) TAB PO SCH ×2 (08:37→22:53)
[2016-10-17] MEDS: predniSONE 5 MG TAB PO SCH ×2 (08:37→22:53)
[2016-10-17] MEDS: SENNA TAB PO SCH (08:37)
[2016-10-17] MEDS: RIFAXIMIN 200 MG TAB PO SCH ×3 (08:37→22:53)
[2016-10-17] MEDS: BICALUTAMIDE 50 MG TAB PO SCH (08:46)
[2016-10-17] MEDS: FIDAXOMICIN 200 MG TABLET PO SCH ×2 (11:36→22:53)
--- NOTE | 2016-10-17 12:21 | CONS ---
Date/Time of Note Date/Time of Note DATE: 10/17/16 TIME: 12:20 Assessment/Plan Assessment/Plan Chief Complaint/Hosp Course No acute events, alert, lying comfortably in bed, still having loose stools, afebrile, nad ANTIMICROBIALS: Dificid INDWELLINGS: PICC line, White. PHYSICAL EXAMINATION: GENERAL: Cachectic elderly man who is in no distress. HEENT: Head atraumatic, normocephalic. Sclerae anicteric. Buccal mucosa dry. NECK: Supple, trachea midline. CHEST: Rise symmetrical. Breath sounds diminished to bases. HEART: S1, S2. ABDOMEN: Soft, bowel sounds present. EXTREMITIES: Without cyanosis. ASSESSMENT: 1. S/p Methicillin-resistant Staphylococcus aureus urinary tract infection. 2. Clostridium difficile colitis. 3. Metastatic prostate carcinoma. 4. Pancytopenia. 5. Severe deconditioning. PLAN: The patient remains stable, started on Dificid for persistent C dif, f/u oncology rec-s [facility] staff Problems: Consultation Date/Type/Reason Admit Date/Time Sep 06, 2016 at 22:01 Initial Consult Date 09/08/16 Type of Consultation: id Referring Provider: TIMOTHY MARAVILLA MD Exam/Review of Systems Vital Signs Vitals Vital Signs Date Time Temp Pulse Resp B/P Pulse Ox O2 Delivery O2 Flow Rate FiO2 10/17/16 08:08 97.9 80 20 122/78 93 10/16/16 22:00 Room Air Intake and Output 10/16/16 10/16/16 10/17/16 15:00 23:00 07:00 Intake Total 1000 ml 1640 ml Output Total 1100 ml 1900 ml Balance -100 ml -260 ml Results Result Diagram: 10/17/16 0425 10/17/16 0425 Results 24 hrs Laboratory Tests Test 10/17/16 04:25 Alanine Aminotransferase (ALT/SGPT) 23 Albumin 2.3 L Albumin/Globulin Ratio 0.82 Alkaline Phosphatase 425 H Anion Gap 12 Aspartate Amino Transf (AST/SGOT) 24 Basophils # 0.0 Basophils % 0.2 Blood Morphology Comment Blood Urea Nitrogen 3 L Calcium Level 7.3 L Carbon Dioxide Level 23 Chloride Level 103 Creatinine 0.29 L Direct Bilirubin 0.00 Eosinophils # 0.0 Eosinophils % 0.1 Globulin 2.80 Glucose Level 89 Hematocrit 33.1 #L Hemoglobin 11.7 #L Indirect Bilirubin 0.3 Lymphocytes # 0.5 L Lymphocytes % 18.9 Mean Corpuscular Hemoglobin 29.5 Mean Corpuscular Hemoglobin Concent 35.4 Mean Corpuscular Volume 83.1 Mean Platelet Volume 8.0 Monocytes # 0.2 L Monocytes % 8.1 Neutrophils # 2.0 Neutrophils % 72.7 Nucleated Red Blood Cells # 0.0 Nucleated Red Blood Cells % 0.0 Platelet Count 88 L Potassium Level 4.0 Red Blood Count 3.98 #L Red Cell Distribution Width 15.6 H Sodium Level 134 L Total Bilirubin 0.3 Total Protein 5.1 L White Blood Count 2.7 L Medications Medications Current Medications Bicalutamide (Casodex) 50 mg QAM PO Last administered on 10/17/16 08:46; Admin Dose 50 MG; Start 09/07/16 at 09:00 Docusate Sodium (Colace) 100 mg BID PRN PO CONSTIPATION Last administered on 05:22; Admin Dose 100 MG; Start 09/07/16 at 00:00 Escitalopram Oxalate (Lexapro) 5 mg DAILY PO Last administered on 10/17/16 08: 35; Admin Dose 5 MG; Start 09/07/16 at 09:00 Megestrol Acetate (Megace Susp) 400 mg BID PO Last administered on 10/17/16 08 :36; Admin Dose 400 MG; Start 09/07/16 at 09:00 Methylnaltrexone [place] (Relistor) 12 mg Q48H SC Last administered on 23:54; Admin Dose 12 MG; Start 09/07/16 at 00:00 Ondansetron HCl (Zofran Tab) 4 mg Q6H PRN PO NAUSEA AND/OR VOMITING Last administered on 10/05/16 19:46; Admin Dose 4 MG; Start 09/07/16 at 00:00 Acetaminophen (Tylenol Tab) 500 mg Q4H PRN PO PAIN AND OR ELEVATED TEMP Last administered on 10/05/16 15:37; Admin Dose 500 MG; Start 09/07/16 at 21:30 IV Flush (NS 10 ml) 10 ml PRN PRN IV IV PROTOCOL; Start 09/11/16 at 10:00 Calcium/Vitamin D (Oyster Shell/ Vit-D (500/200)) 1 tab BID PO Last administered on 10/17/16 08:37; Admin Dose 1 TAB; Start 09/12/16 at 14:00 IV Flush (NS 10 ml) 10 ml PRN PRN IV IV PROTOCOL; Start 09/21/16 at 12:00 Methadone HCl 2 mg 2 mg Q6 PO Last administered on 10/17/16 11:36; Admin Dose 2 MG; Start 09/23/16 at 18:00 Potassium Chloride/Sodium Chloride 1,000 ml @ 70 mls/hr [id number] IV Last administered on 10/17/16 08:35; Admin Dose 70 MLS/HR; Start 09/28/16 at 16:30 Ondansetron HCl/ Sodium Chloride (Zofran Inj/NS) 54 ml @ 216 mls/hr Q12H PRN IV NAUSEA AND/OR VOMITING; Start 09/29/16 at 22:00 Prednisone 5 mg 5 mg BID PO Last administered on 10/17/16 08:37; Admin Dose 5 MG; Start 09/29/16 at 21:00 Docetaxel 45 mg/ Sodium Chloride 100 ml @ 100 mls/hr Th@22 IV Last administered on 10/13/16 22:33; Admin Dose 100 MLS/HR; Start 10/06/16 at 22:00 ; Stop 10/27/16 at 22:59 Ondansetron HCl/ Dexamethasone/ Dextrose (Zofran Inj/ Decadron/D5W) 60 ml @ 252 mls/hr Th@2130 IV Last administered on 10/13/16 21:45; Admin Dose 252 MLS/ HR; Start 10/06/16 at 21:30; Stop 10/27/16 at 21:45 Hydromorphone HCl (Dilaudid) 1.5 mg Q3H PRN IV PAIN Last administered on 09:38; Admin Dose 1.5 MG; Start 10/07/16 at 03:00 Senna (Senokot) 2 tab BID PO Last administered on 10/17/16 08:37; Admin Dose 2 TAB; Start 10/07/16 at 03:00 Bisacodyl (Dulcolax Supp) [address] CONSTIPATION Last administered on 10/07/16 03:07; Admin Dose 10 MG; Start 10/07/16 at 03:00 Rifaximin (Xifaxan) 200 mg TID PO Last administered on 10/17/16 08:37; Admin Dose 200 MG; Start 10/16/16 at 21:00; Stop 10/20/16 at 20:59 Fidaxomicin (Dificid) 200 mg BID PO Last administered on 10/17/16 11:36; Admin Dose 200 MG; Start 10/17/16 at 10:30 EUNICE GUNTER NP Oct 17, 2016 12:21
--- NOTE | 2016-10-17 15:38 | PN ---
Date/Time of Note Date/Time of Note DATE: 10/17/16 TIME: 15:34 Assessment/Plan VTE Prophylaxis VTE Prophylaxis Intervention: SCD's Lines/Catheters IV Catheter Type (from Nrsg): PICC Line Central line still needed: Yes Urinary Cath still in place: Yes Reason Cath still needed: urinary retention Assessment/Plan Chief Complaint/Hosp Course ASSESSMENT AND PLAN: 1. Clostridium difficile colitis. Contact isolation. Patient is followed by Dr. Schuler group from infectious disease standpoint. Patient is currently on rifaximin and Dificid. 2. Metastatic prostate cancer. Dr. Hernandez is following patient in oncology consultation. Continue chemotherapy and steroids. 3. Thrombocytopenia. Continue to monitor platelets. 4. Acute on chronic back pain. Dr. Ferguson is following the patient in pain management. Continue methadone and Dilaudid p.r.n. for breakthrough pain. 5. Anemia, this post blood transfusion, continue to monitor hemoglobin and hematocrit. 6. MRSA UTI, status post treatment Dr Schuler is following in infectious disease consultation. 7. Protein calorie malnutrition, continue Megace, nutritional consult. Continue Protonix for peptic ulcer disease prophylaxis. Further recommendations based on clinical course. Plan of care discussed with Dr. Nichols. Problems: Subjective 24 Hr Interval Summary Free Text/Dictation Patient stated pain is well controlled, poor appetite and cachexia, will ask a flavor maker to revaluate patient, patient continues to have diarrhea, hold Relistor and senna for now. Exam/Review of Systems Vital Signs Vitals Vital Signs Date Time Temp Pulse Resp B/P Pulse Ox O2 Delivery O2 Flow Rate FiO2 10/17/16 08:08 97.9 80 20 122/78 93 10/16/16 22:00 Room Air Intake and Output 10/16/16 10/16/16 10/17/16 15:00 23:00 07:00 Intake Total 1000 ml 1640 ml Output Total 1100 ml 1900 ml Balance -100 ml -260 ml Exam GENERAL: Well-developed, cachectic male, currently is awake, alert. HEENT: Head is atraumatic, normocephalic. PERRLA. NECK: Supple. No mass, no thyromegaly. LUNGS: Clear bilaterally. No rhonchi, wheezes, rales noted. HEART: Normal S1, S2. No murmurs, gallops, clicks, rubs noted. ABDOMEN: Flat, soft, nondistended, nontender. Bowel sounds present. EXTREMITIES: No edema. SKIN: There is no rash, petechiae noted. NEUROLOGIC: The patient is awake, alert, and oriented x3. Results Result Diagram: 10/17/165 10/17/165 Results 24 hrs Laboratory Tests Test 10/17/16 04:25 Alanine Aminotransferase (ALT/SGPT) 23 Albumin 2.3 L Albumin/Globulin Ratio 0.82 Alkaline Phosphatase 425 H Anion Gap 12 Aspartate Amino Transf (AST/SGOT) 24 Basophils # 0.0 Basophils % 0.2 Blood Morphology Comment Blood Urea Nitrogen 3 L Calcium Level 7.3 L Carbon Dioxide Level 23 Chloride Level 103 Creatinine 0.29 L Direct Bilirubin 0.00 Eosinophils # 0.0 Eosinophils % 0.1 Globulin 2.80 Glucose Level 89 Hematocrit 33.1 #L Hemoglobin 11.7 #L Indirect Bilirubin 0.3 Lymphocytes # 0.5 L Lymphocytes % 18.9 Mean Corpuscular Hemoglobin 29.5 Mean Corpuscular Hemoglobin Concent 35.4 Mean Corpuscular Volume 83.1 Mean Platelet Volume 8.0 Monocytes # 0.2 L Monocytes % 8.1 Neutrophils # 2.0 Neutrophils % 72.7 Nucleated Red Blood Cells # 0.0 Nucleated Red Blood Cells % 0.0 Platelet Count 88 L Potassium Level 4.0 Red Blood Count 3.98 #L Red Cell Distribution Width 15.6 H Sodium Level 134 L Total Bilirubin 0.3 Total Protein 5.1 L White Blood Count 2.7 L Medications Medications Current Medications Bicalutamide (Casodex) 50 mg QAM PO Last administered on 10/17/16 08:46; Admin Dose 50 MG; Start 09/07/16 at 09:00 Docusate Sodium (Colace) 100 mg BID PRN PO CONSTIPATION Last administered on 05:22; Admin Dose 100 MG; Start 09/07/16 at 00:00 Escitalopram Oxalate (Lexapro) 5 mg DAILY PO Last administered on 10/17/16 08: 35; Admin Dose 5 MG; Start 09/07/16 at 09:00 Megestrol Acetate (Megace Susp) 400 mg BID PO Last administered on 10/17/16 08 :36; Admin Dose 400 MG; Start 09/07/16 at 09:00 Methylnaltrexone [place] (Relistor) 12 mg Q48H SC Last administered on 23:54; Admin Dose 12 MG; Start 09/07/16 at 00:00 Ondansetron HCl (Zofran Tab) 4 mg Q6H PRN PO NAUSEA AND/OR VOMITING Last administered on 10/05/16 19:46; Admin Dose 4 MG; Start 09/07/16 at 00:00 Acetaminophen (Tylenol Tab) 500 mg Q4H PRN PO PAIN AND OR ELEVATED TEMP Last administered on 10/05/16 15:37; Admin Dose 500 MG; Start 09/07/16 at 21:30 IV Flush (NS 10 ml) 10 ml PRN PRN IV IV PROTOCOL; Start 09/11/16 at 10:00 Calcium/Vitamin D (Oyster Shell/ Vit-D (500/200)) 1 tab BID PO Last administered on 10/17/16 08:37; Admin Dose 1 TAB; Start 09/12/16 at 14:00 IV Flush (NS 10 ml) 10 ml PRN PRN IV IV PROTOCOL; Start 09/21/16 at 12:00 Methadone HCl 2 mg 2 mg Q6 PO Last administered on 10/17/16 11:36; Admin Dose 2 MG; Start 09/23/16 at 18:00 Potassium Chloride/Sodium Chloride 1,000 ml @ 70 mls/hr [id number] IV Last administered on 10/17/16 08:35; Admin Dose 70 MLS/HR; Start 09/28/16 at 16:30 Ondansetron HCl/ Sodium Chloride (Zofran Inj/NS) 54 ml @ 216 mls/hr Q12H PRN IV NAUSEA AND/OR VOMITING; Start 09/29/16 at 22:00 Prednisone 5 mg 5 mg BID PO Last administered on 10/17/16 08:37; Admin Dose 5 MG; Start 09/29/16 at 21:00 Docetaxel 45 mg/ Sodium Chloride 100 ml @ 100 mls/hr Th@22 IV Last administered on 10/13/16 22:33; Admin Dose 100 MLS/HR; Start 10/06/16 at 22:00 ; Stop 10/27/16 at 22:59 Ondansetron HCl/ Dexamethasone/ Dextrose (Zofran Inj/ Decadron/D5W) 60 ml @ 252 mls/hr Th@2130 IV Last administered on 10/13/16 21:45; Admin Dose 252 MLS/ HR; Start 10/06/16 at 21:30; Stop 10/27/16 at 21:45 Hydromorphone HCl (Dilaudid) 1.5 mg Q3H PRN IV PAIN Last administered on 09:38; Admin Dose 1.5 MG; Start 10/07/16 at 03:00 Senna (Senokot) 2 tab BID PO Last administered on 10/17/16 08:37; Admin Dose 2 TAB; Start 10/07/16 at 03:00 Bisacodyl (Dulcolax Supp) 10 mg DAILY PRN [place] CONSTIPATION Last administered on 10/07/16 03:07; Admin Dose 10 MG; Start 10/07/16 at 03:00 Rifaximin (Xifaxan) 200 mg TID PO Last administered on 10/17/16 13:28; Admin Dose 200 MG; Start 10/16/16 at 21:00; Stop 10/20/16 at 20:59 Fidaxomicin (Dificid) 200 mg BID PO Last administered on 10/17/16 11:36; Admin Dose 200 MG; Start 10/17/16 at 10:30 SREE GRIFFITH Oct 17, 2016 15:38
--- NOTE | 2016-10-17 17:34 | CONS ---
Date/Time of Note Date/Time of Note DATE: 10/17/16 TIME: 17:30 Assessment/Plan Assessment/Plan Additional Assessment/Plan Impression: 1. Clostridium difficile colitis. Continues to have persistent diarrhea 2. Abdominal pain: worsening, associated with nausea and vomiting. ddx include C. diff colitis vs side effects from chemotherapy vs gastritis, duodenitis, esophagitis. 3. anemia 4. Metastatic prostate cancer. Dr. Hernandez is following patient in oncology consultation. Continue chemotherapy and steroids. 5. MRSA 6. Abnormal alkaline po4 secondary to jose mets. Recommendations: 1. Continue vancomycin for C. Diff. Consider fidaxomicin per ID. 2. f/uCMV PCR as pt is immunosuppressed and to r/o possible CMV colitis/ enteritis as cause of diarrhea 3. continue pain control 4. ordered occult stool blood negative 5. abx per ID 6. d/c Protonix ,it will aggravate 7. continue other supportive care per pcp and other consultants Consultation Date/Type/Reason Admit Date/Time Sep 06, 2016 at 22:01 Initial Consult Date 09/08/16 Type of Consultation: id Referring Provider: TIMOTHY MARAVILLA MD 24 HR Interval Summary Free Text/Dictation depressed Exam/Review of Systems Vital Signs Vitals Vital Signs Date Time Temp Pulse Resp B/P Pulse Ox O2 Delivery O2 Flow Rate FiO2 10/17/16 08:08 97.9 80 20 122/78 93 10/16/16 22:00 Room Air Intake and Output 10/16/16 10/16/16 10/17/16 15:00 23:00 07:00 Intake Total 1000 ml 1640 ml Output Total 1100 ml 1900 ml Balance -100 ml -260 ml Exam Constitutional: alert, oriented, well developed Psych: nl mood/affect, no complaints Head: atraumatic, normocephalic Eyes: EOMI, PERRL, nl conjunctiva, nl lids, nl sclera ENMT: nl external ears & nose, nl lips & teeth, nl nasal mucosa & septum Neck: non-tender, supple Respiratory: clear to auscultation, normal air movement Cardiovascular: nl pulses, regular rate and rhythm Gastrointestinal: nl liver, spleen, non-tender, soft Musculoskeletal: nl extremities to inspection, nl gait and stance Extremities: normal pulses 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 intact, nl mental status, nl speech, nl strength Skin: nl turgor, No rash or lesions Lymph: nl lymph nodes Results Result Diagram: 10/17/1642410/17/16424 Results 24 hrs Laboratory Tests Test 10/17/16 04:25 Alanine Aminotransferase (ALT/SGPT) 23 Albumin 2.3 L Albumin/Globulin Ratio 0.82 Alkaline Phosphatase 425 H Anion Gap 12 Aspartate Amino Transf (AST/SGOT) 24 Basophils # 0.0 Basophils % 0.2 Blood Morphology Comment Blood Urea Nitrogen 3 L Calcium Level 7.3 L Carbon Dioxide Level 23 Chloride Level 103 Creatinine 0.29 L Direct Bilirubin 0.00 Eosinophils # 0.0 Eosinophils % 0.1 Globulin 2.80 Glucose Level 89 Hematocrit 33.1 #L Hemoglobin 11.7 #L Indirect Bilirubin 0.3 Lymphocytes # 0.5 L Lymphocytes % 18.9 Mean Corpuscular Hemoglobin 29.5 Mean Corpuscular Hemoglobin Concent 35.4 Mean Corpuscular Volume 83.1 Mean Platelet Volume 8.0 Monocytes # 0.2 L Monocytes % 8.1 Neutrophils # 2.0 Neutrophils % 72.7 Nucleated Red Blood Cells # 0.0 Nucleated Red Blood Cells % 0.0 Platelet Count 88 L Potassium Level 4.0 Red Blood Count 3.98 #L Red Cell Distribution Width 15.6 H Sodium Level 134 L Total Bilirubin 0.3 Total Protein 5.1 L White Blood Count 2.7 L Medications Medications Current Medications Bicalutamide (Casodex) 50 mg QAM PO Last administered on 10/17/16 08:46; Admin Dose 50 MG; Start 09/07/16 at 09:00 Docusate Sodium (Colace) 100 mg BID PRN PO CONSTIPATION Last administered on 05:22; Admin Dose 100 MG; Start 09/07/16 at 00:00; Status Future Hold Escitalopram Oxalate (Lexapro) 5 mg DAILY PO Last administered on 10/17/16 08: 35; Admin Dose 5 MG; Start 09/07/16 at 09:00 Megestrol Acetate (Megace Susp) 400 mg BID PO Last administered on 10/17/16 08 :36; Admin Dose 400 MG; Start 09/07/16 at 09:00 Methylnaltrexone [place] (Relistor) 12 mg Q48H SC Last administered on 23:54; Admin Dose 12 MG; Start 09/07/16 at 00:00; Status Future Hold Ondansetron HCl (Zofran Tab) 4 mg Q6H PRN PO NAUSEA AND/OR VOMITING Last administered on 10/05/16 19:46; Admin Dose 4 MG; Start 09/07/16 at 00:00 Acetaminophen (Tylenol Tab) 500 mg Q4H PRN PO PAIN AND OR ELEVATED TEMP Last administered on 10/05/16 15:37; Admin Dose 500 MG; Start 09/07/16 at 21:30 IV Flush (NS 10 ml) 10 ml PRN PRN IV IV PROTOCOL; Start 09/11/16 at 10:00 Calcium/Vitamin D (Oyster Shell/ Vit-D (500/200)) 1 tab BID PO Last administered on 10/17/16 08:37; Admin Dose 1 TAB; Start 09/12/16 at 14:00 IV Flush (NS 10 ml) 10 ml PRN PRN IV IV PROTOCOL; Start 09/21/16 at 12:00 Methadone HCl 2 mg 2 mg Q6 PO Last administered on 10/17/16 17:28; Admin Dose 2 MG; Start 09/23/16 at 18:00 Potassium Chloride/Sodium Chloride 1,000 ml @ 70 mls/hr [id number] IV Last administered on 10/17/16 08:35; Admin Dose 70 MLS/HR; Start 09/28/16 at 16:30 Ondansetron HCl/ Sodium Chloride (Zofran Inj/NS) 54 ml @ 216 mls/hr Q12H PRN IV NAUSEA AND/OR VOMITING; Start 09/29/16 at 22:00 Prednisone 5 mg 5 mg BID PO Last administered on 10/17/16 08:37; Admin Dose 5 MG; Start 09/29/16 at 21:00 Docetaxel 45 mg/ Sodium Chloride 100 ml @ 100 mls/hr Th@22 IV Last administered on 10/13/16 22:33; Admin Dose 100 MLS/HR; Start 10/06/16 at 22:00 ; Stop 10/27/16 at 22:59 Ondansetron HCl/ Dexamethasone/ Dextrose (Zofran Inj/ Decadron/D5W) 60 ml @ 252 mls/hr Th@2130 IV Last administered on 10/13/16 21:45; Admin Dose 252 MLS/ HR; Start 10/06/16 at 21:30; Stop 10/27/16 at 21:45 Hydromorphone HCl (Dilaudid) 1.5 mg Q3H PRN IV PAIN Last administered on 15:36; Admin Dose 1.5 MG; Start 10/07/16 at 03:00 Bisacodyl (Dulcolax Supp) 10 mg DAILY PRN [place] CONSTIPATION Last administered on 10/07/16 03:07; Admin Dose 10 MG; Start 10/07/16 at 03:00 Rifaximin (Xifaxan) 200 mg TID PO Last administered on 10/17/16 13:28; Admin Dose 200 MG; Start 10/16/16 at 21:00; Stop 10/20/16 at 20:59 Fidaxomicin (Dificid) 200 mg BID PO Last administered on 10/17/16 11:36; Admin Dose 200 MG; Start 10/17/16 at 10:30 MICHAEL COELHO MD Oct 17, 2016 17:34
--- NOTE | 2016-10-17 18:46 | CONS ---
Date/Time of Note Date/Time of Note DATE: 10/17/16 TIME: 18:44 Assessment/Plan Assessment/Plan Chief Complaint/Hosp Course Metastatic prostate cancer. FAMILY CONFERENCE RE DX, PROGNOSIS AND TREATMENT OPTIONS RE: chemotherapy and steroids - PER PROTOCOL Chemotherapy Docetaxel (Taxotere) 30 mg/m2 IV over 30 minutes once per day on days 1, 8, 15, 22, 29 Prednisone (Sterapred) 5 mg PO BID on days 1 to 42 Supportive medications Dexamethasone (Decadron) 8 mg (route not specified) once 1 hour before Docetaxel (Taxotere) Antiemetics "according to local practice" 42-day cycle for up to 5 cycles ANEMIA POST PRBC MONITOR CLOSELY OBSERVE FOR BLEEDING AND HEMOLYSIS Thrombocytopenia. Continue to monitor platelets. transfuse as needed PANCYTOPENIA MONITOR DECONDITIONING PT Acute on chronic back pain. PAIN CONTROL C DIFF COLITIS ATB PER ID Problems: Consultation Date/Type/Reason Admit Date/Time Sep 06, 2016 at 22:01 Initial Consult Date 09/08/16 Type of Consultation: HEMEONC Referring Provider: TIMOTHY MARAVILLA MD 24 HR Interval Summary Free Text/Dictation ALL NOTED NO NEW EVENTS + DIARRHEA NO BLEEDING POST 2 U PRBC YESTERDAY Exam/Review of Systems Vital Signs Vitals Vital Signs Date Time Temp Pulse Resp B/P Pulse Ox O2 Delivery O2 Flow Rate FiO2 10/17/16 08:08 97.9 80 20 122/78 93 10/16/16 22:00 Room Air Intake and Output 10/16/16 10/16/16 10/17/16 15:00 23:00 07:00 Intake Total 1000 ml 1640 ml Output Total 1100 ml 1900 ml Balance -100 ml -260 ml Exam GENERAL: Well-developed, cachectic male, currently is awake, alert. HEENT: Head is atraumatic, normocephalic. PERRLA. NECK: Supple. No mass, no thyromegaly. LUNGS: Clear bilaterally. No rhonchi, wheezes, rales noted. HEART: Normal S1, S2. No murmurs, gallops, clicks, rubs noted. ABDOMEN: Flat, soft, nondistended, nontender. Bowel sounds present. EXTREMITIES: No edema. SKIN: There is no rash, petechiae noted. NEUROLOGIC: The patient is awake, alert, and oriented x3. Results Result Diagram: 10/17/165 10/17/165 Results 24 hrs Laboratory Tests Test 10/17/16 04:25 Alanine Aminotransferase (ALT/SGPT) 23 Albumin 2.3 L Albumin/Globulin Ratio 0.82 Alkaline Phosphatase 425 H Anion Gap 12 Aspartate Amino Transf (AST/SGOT) 24 Basophils # 0.0 Basophils % 0.2 Blood Morphology Comment Blood Urea Nitrogen 3 L Calcium Level 7.3 L Carbon Dioxide Level 23 Chloride Level 103 Creatinine 0.29 L Direct Bilirubin 0.00 Eosinophils # 0.0 Eosinophils % 0.1 Globulin 2.80 Glucose Level 89 Hematocrit 33.1 #L Hemoglobin 11.7 #L Indirect Bilirubin 0.3 Lymphocytes # 0.5 L Lymphocytes % 18.9 Mean Corpuscular Hemoglobin 29.5 Mean Corpuscular Hemoglobin Concent 35.4 Mean Corpuscular Volume 83.1 Mean Platelet Volume 8.0 Monocytes # 0.2 L Monocytes % 8.1 Neutrophils # 2.0 Neutrophils % 72.7 Nucleated Red Blood Cells # 0.0 Nucleated Red Blood Cells % 0.0 Platelet Count 88 L Potassium Level 4.0 Red Blood Count 3.98 #L Red Cell Distribution Width 15.6 H Sodium Level 134 L Total Bilirubin 0.3 Total Protein 5.1 L White Blood Count 2.7 L Medications Medications Current Medications Bicalutamide (Casodex) 50 mg QAM PO Last administered on 10/17/16 08:46; Admin Dose 50 MG; Start 09/07/16 at 09:00 Docusate Sodium (Colace) 100 mg BID PRN PO CONSTIPATION Last administered on 05:22; Admin Dose 100 MG; Start 09/07/16 at 00:00; Status Future Hold Escitalopram Oxalate (Lexapro) 5 mg DAILY PO Last administered on 10/17/16 08: 35; Admin Dose 5 MG; Start 09/07/16 at 09:00 Megestrol Acetate (Megace Susp) 400 mg BID PO Last administered on 10/17/16 08 :36; Admin Dose 400 MG; Start 09/07/16 at 09:00 Methylnaltrexone [place] (Relistor) 12 mg Q48H SC Last administered on 23:54; Admin Dose 12 MG; Start 09/07/16 at 00:00; Status Future Hold Ondansetron HCl (Zofran Tab) 4 mg Q6H PRN PO NAUSEA AND/OR VOMITING Last administered on 10/05/16 19:46; Admin Dose 4 MG; Start 09/07/16 at 00:00 Acetaminophen (Tylenol Tab) 500 mg Q4H PRN PO PAIN AND OR ELEVATED TEMP Last administered on 10/05/16 15:37; Admin Dose 500 MG; Start 09/07/16 at 21:30 IV Flush (NS 10 ml) 10 ml PRN PRN IV IV PROTOCOL; Start 09/11/16 at 10:00 Calcium/Vitamin D (Oyster Shell/ Vit-D (500/200)) 1 tab BID PO Last administered on 10/17/16 08:37; Admin Dose 1 TAB; Start 09/12/16 at 14:00 IV Flush (NS 10 ml) 10 ml PRN PRN IV IV PROTOCOL; Start 09/21/16 at 12:00 Methadone HCl 2 mg 2 mg Q6 PO Last administered on 10/17/16 17:28; Admin Dose 2 MG; Start 09/23/16 at 18:00 Potassium Chloride/Sodium Chloride 1,000 ml @ 70 mls/hr [id number] IV Last administered on 10/17/16 08:35; Admin Dose 70 MLS/HR; Start 09/28/16 at 16:30 Ondansetron HCl/ Sodium Chloride (Zofran Inj/NS) 54 ml @ 216 mls/hr Q12H PRN IV NAUSEA AND/OR VOMITING; Start 09/29/16 at 22:00 Prednisone 5 mg 5 mg BID PO Last administered on 10/17/16 08:37; Admin Dose 5 MG; Start 09/29/16 at 21:00 Docetaxel 45 mg/ Sodium Chloride 100 ml @ 100 mls/hr Th@22 IV Last administered on 10/13/16 22:33; Admin Dose 100 MLS/HR; Start 10/06/16 at 22:00 ; Stop 10/27/16 at 22:59 Ondansetron HCl/ Dexamethasone/ Dextrose (Zofran Inj/ Decadron/D5W) 60 ml @ 252 mls/hr Th@2130 IV Last administered on 10/13/16 21:45; Admin Dose 252 MLS/ HR; Start 10/06/16 at 21:30; Stop 10/27/16 at 21:45 Hydromorphone HCl (Dilaudid) 1.5 mg Q3H PRN IV PAIN Last administered on 18:40; Admin Dose 1.5 MG; Start 10/07/16 at 03:00 Bisacodyl (Dulcolax Supp) 10 mg DAILY PRN [place] CONSTIPATION Last administered on 10/07/16 03:07; Admin Dose 10 MG; Start 10/07/16 at 03:00 Rifaximin (Xifaxan) 200 mg TID PO Last administered on 10/17/16 13:28; Admin Dose 200 MG; Start 10/16/16 at 21:00; Stop 10/20/16 at 20:59 Fidaxomicin (Dificid) 200 mg BID PO Last administered on 10/17/16 11:36; Admin Dose 200 MG; Start 10/17/16 at 10:30 JARAD CHOI MD Oct 17, 2016 18:46
[2016-10-17 19:57] VITALS: BP 108/79; RESP 18
[2016-10-17] MEDS: ZOLPIDEM 5 MG TAB PO PRN (23:38)
[2016-10-18] MEDS: HYDROmorphONE 2 MG/ML SYG IV PRN ×6 (00:46→23:01)
[2016-10-18] MEDS: METHADONE (1 MG/1 ML PO SYG) PO SCH ×3 (05:42→18:00)
[2016-10-18 05:50] LABS: ALBUMIN 2.3 g/dl (3.3-4.9)
[2016-10-18 05:51] LABS: POTASSIUM 4.1 mmol/L (3.5-5.1)
[2016-10-18 05:53] LABS: ALBUMIN/GLOBULIN RATIO 0.88; BILIRUBIN,INDIRECT 0.2 mg/dl (0-1.1); BILIRUBIN,TOTAL 0.2 mg/dl (0.2-1.3); CREATININE 0.3 mg/dl (0.61-1.24); TOTAL PROTEIN 4.9 g/dl (6.1-8.1)
[2016-10-18 05:54] LABS: CALCIUM 7.4 mg/dl (8.4-10.2)
[2016-10-18 06:22] LABS: BASOPHILS % 0.4 % (0.0-2.0); HEMATOCRIT 34.7 % (42.0-52.0); LYMPHOCYTES # 0.4 10^3/ul (0.8-2.9); LYMPHOCYTES % 19.8 % (15.0-51.0); MEAN CORPUSCULAR HEMOGLOBIN 29.6 pg (29.0-33.0); MEAN CORPUSCULAR HGB CONC 34.6 g/dl (32.0-37.0); MEAN CORPUSCULAR VOLUME 85.6 fl (82.0-101.0); MEAN PLATELET VOLUME 7.8 fl (7.4-10.4); MONOCYTE # 0.2 10^3/ul (0.3-0.9); MONOCYTES % 10.6 % (0.0-11.0); NEUTROPHIL # 1.6 10^3/ul (1.6-7.5); NEUTROPHILS % 69.2 % (39.0-77.0); PLATELET COUNT 90 10^3/UL (140-440); RED BLOOD COUNT 4.05 10^6/ul (4.70-6.10); RED CELL DISTRIBUTION WIDTH 15.8 % (11.5-14.5); UNCORRECTED WBC 2.3 10^3/ul (4.8-10.8); WHITE BLOOD COUNT 2.3 10^3/ul (4.8-10.8)
[2016-10-18 06:54] LABS: CONDITION 1; LH ANALYZER COMMENTS 1
[2016-10-18] MEDS: RIFAXIMIN 200 MG TAB PO SCH ×4 (08:07→23:00)
[2016-10-18] MEDS: ESCITALOPRAM 10 MG TAB PO SCH (08:07)
[2016-10-18] MEDS: predniSONE 5 MG TAB PO SCH ×3 (08:07→23:00)
[2016-10-18] MEDS: PANTOPRAZOLE (EC) 40 MG TAB PO SCH ×2 (08:07→16:38)
[2016-10-18] MEDS: FIDAXOMICIN 200 MG TABLET PO SCH ×3 (08:07→23:00)
[2016-10-18] MEDS: CALCIUM/VITAMIN D (500/200) TAB PO SCH ×3 (08:07→23:00)
[2016-10-18] MEDS: MEGESTROL (40 MG/ML) 10ML CUP PO SCH ×3 (08:08→23:00)
[2016-10-18] MEDS: BICALUTAMIDE 50 MG TAB PO SCH (08:11)
[2016-10-18 08:15] VITALS: BP 101/69; RESP 14
[2016-10-18 08:30] VITALS: BP 112/53; RESP 16
--- NOTE | 2016-10-18 13:54 | CONS ---
Date/Time of Note Date/Time of Note DATE: 10/18/16 TIME: 13:52 Assessment/Plan Assessment/Plan Chief Complaint/Hosp Course No acute events, alert, afebrile, nad ANTIMICROBIALS: Dificid Rifaximin INDWELLINGS: PICC line, White. PHYSICAL EXAMINATION: GENERAL: Cachectic elderly man who is in no distress. HEENT: Head atraumatic, normocephalic. Sclerae anicteric. Buccal mucosa dry. NECK: Supple, trachea midline. CHEST: Rise symmetrical. Breath sounds diminished to bases. HEART: S1, S2. ABDOMEN: Soft, bowel sounds present. EXTREMITIES: Without cyanosis. ASSESSMENT: 1. S/p Methicillin-resistant Staphylococcus aureus urinary tract infection. 2. Clostridium difficile colitis. 3. Metastatic prostate carcinoma. 4. Pancytopenia. 5. Severe deconditioning. PLAN: The patient remains stable, continue abx, f/u oncology rec-s, await for clinical improvement [facility] staff Problems: Consultation Date/Type/Reason Admit Date/Time Sep 06, 2016 at 22:01 Initial Consult Date 09/08/16 Type of Consultation: id Referring Provider: TIMOTHY MARAVILLA MD Exam/Review of Systems Vital Signs Vitals Vital Signs Date Time Temp Pulse Resp B/P Pulse Ox O2 Delivery O2 Flow Rate FiO2 10/18/16 08:30 98.7 88 16 112/53 95 10/16/16 22:00 Room Air Intake and Output 10/17/16 10/17/16 10/18/16 15:00 23:00 07:00 Intake Total 700 ml 1030 ml 1140 ml Output Total 800 ml 900 ml Balance 700 ml 230 ml 240 ml Results Result Diagram: 10/18/16 0450 10/18/16 0420 Results 24 hrs Laboratory Tests Test 10/18/16 04:20 10/18/16 04:50 Alanine Aminotransferase (ALT/SGPT) 28 Albumin 2.3 L Albumin/Globulin Ratio 0.88 Alkaline Phosphatase 415 H Anion Gap 11 Aspartate Amino Transf (AST/SGOT) 24 Blood Urea Nitrogen 3 L Calcium Level 7.4 L Carbon Dioxide Level 24 Chloride Level 102 Creatinine 0.30 L Direct Bilirubin 0.00 Globulin 2.60 Glucose Level 87 Indirect Bilirubin 0.2 Potassium Level 4.1 Sodium Level 133 L Total Bilirubin 0.2 Total Protein 4.9 L Ammonia 22 Basophils # 0.0 Basophils % 0.4 Blood Morphology Comment Eosinophils # 0.0 Eosinophils % 0.0 Hematocrit 34.7 L Hemoglobin 12.0 L Lymphocytes # 0.4 L Lymphocytes % 19.8 Mean Corpuscular Hemoglobin 29.6 Mean Corpuscular Hemoglobin Concent 34.6 Mean Corpuscular Volume 85.6 Mean Platelet Volume 7.8 Monocytes # 0.2 L Monocytes % 10.6 Neutrophils # 1.6 Neutrophils % 69.2 Nucleated Red Blood Cells # 0.0 Nucleated Red Blood Cells % 0.0 Platelet Count 90 L Red Blood Count 4.05 L Red Cell Distribution Width 15.8 H White Blood Count 2.3 L Medications Medications Current Medications Bicalutamide (Casodex) 50 mg QAM PO Last administered on 10/18/16 08:11; Admin Dose 50 MG; Start 09/07/16 at 09:00 Docusate Sodium (Colace) 100 mg BID PRN PO CONSTIPATION Last administered on 05:22; Admin Dose 100 MG; Start 09/07/16 at 00:00; Status Future Hold Escitalopram Oxalate (Lexapro) 5 mg DAILY PO Last administered on 10/18/16 08: 07; Admin Dose 5 MG; Start 09/07/16 at 09:00 Megestrol Acetate (Megace Susp) 400 mg BID PO Last administered on 10/18/16 08 :08; Admin Dose 400 MG; Start 09/07/16 at 09:00 Methylnaltrexone [place] (Relistor) 12 mg Q48H SC Last administered on 23:54; Admin Dose 12 MG; Start 09/07/16 at 00:00; Status Future Hold Ondansetron HCl (Zofran Tab) 4 mg Q6H PRN PO NAUSEA AND/OR VOMITING Last administered on 10/05/16 19:46; Admin Dose 4 MG; Start 09/07/16 at 00:00 Acetaminophen (Tylenol Tab) 500 mg Q4H PRN PO PAIN AND OR ELEVATED TEMP Last administered on 10/05/16 15:37; Admin Dose 500 MG; Start 09/07/16 at 21:30 IV Flush (NS 10 ml) 10 ml PRN PRN IV IV PROTOCOL; Start 09/11/16 at 10:00 Calcium/Vitamin D (Oyster Shell/ Vit-D (500/200)) 1 tab BID PO Last administered on 10/18/16 08:07; Admin Dose 1 TAB; Start 09/12/16 at 14:00 IV Flush (NS 10 ml) 10 ml PRN PRN IV IV PROTOCOL; Start 09/21/16 at 12:00 Methadone HCl 2 mg 2 mg Q6 PO Last administered on 10/18/16 05:42; Admin Dose 2 MG; Start 09/23/16 at 18:00 Potassium Chloride/Sodium Chloride 1,000 ml @ 70 mls/hr [id number] IV Last administered on 10/17/16 23:07; Admin Dose 70 MLS/HR; Start 09/28/16 at 16:30 Ondansetron HCl/ Sodium Chloride (Zofran Inj/NS) 54 ml @ 216 mls/hr Q12H PRN IV NAUSEA AND/OR VOMITING; Start 09/29/16 at 22:00 Prednisone 5 mg 5 mg BID PO Last administered on 10/18/16 08:07; Admin Dose 5 MG; Start 09/29/16 at 21:00 Docetaxel 45 mg/ Sodium Chloride 100 ml @ 100 mls/hr Th@22 IV Last administered on 10/13/16 22:33; Admin Dose 100 MLS/HR; Start 10/06/16 at 22:00 ; Stop 10/27/16 at 22:59 Ondansetron HCl/ Dexamethasone/ Dextrose (Zofran Inj/ Decadron/D5W) 60 ml @ 252 mls/hr Th@2130 IV Last administered on 10/13/16 21:45; Admin Dose 252 MLS/ HR; Start 10/06/16 at 21:30; Stop 10/27/16 at 21:45 Hydromorphone HCl (Dilaudid) 1.5 mg Q3H PRN IV PAIN Last administered on 12:06; Admin Dose 1.5 MG; Start 10/07/16 at 03:00 Bisacodyl (Dulcolax Supp) 10 mg DAILY PRN [place] CONSTIPATION Last administered on 10/07/16 03:07; Admin Dose 10 MG; Start 10/07/16 at 03:00 Rifaximin (Xifaxan) 200 mg TID PO Last administered on 10/18/16 08:07; Admin Dose 200 MG; Start 10/16/16 at 21:00; Stop 10/20/16 at 20:59 Fidaxomicin (Dificid) 200 mg BID PO Last administered on 10/18/16t 08:07; Admin Dose 200 MG; Start 10/17/16 at 10:30 EUNICE GUNTER NP Oct 18, 2016 13:54
--- NOTE | 2016-10-18 17:31 | PN ---
Date/Time of Note Date/Time of Note DATE: 10/18/16 TIME: 17:28 Assessment/Plan VTE Prophylaxis VTE Prophylaxis Intervention: SCD's Lines/Catheters IV Catheter Type (from Nrs): PICC Line Central line still needed: Yes Urinary Cath still in place: Yes Reason Cath still needed: urinary retention Assessment/Plan Chief Complaint/Hosp Course ASSESSMENT AND PLAN: 1. Clostridium difficile colitis. Contact isolation. Patient is followed by Dr. Schuler group from infectious disease standpoint. Patient is currently on rifaximin and Dificid. 2. Metastatic prostate cancer. Dr. Hernandez is following patient in oncology consultation. Continue chemotherapy and steroids. 3. Thrombocytopenia. Continue to monitor platelets. 4. Acute on chronic back pain. Dr. Ferguson is following the patient in pain management. Continue methadone and Dilaudid p.r.n. for breakthrough pain. 5. Anemia, this post blood transfusion, continue to monitor hemoglobin and hematocrit. 6. MRSA UTI, status post treatment Dr Schuler is following in infectious disease consultation. 7. Protein calorie malnutrition, continue Megace, continue high-protein and high-calorie diet. Continue Protonix for peptic ulcer disease prophylaxis. Further recommendations based on clinical course. Plan of care discussed with Dr. Nichols. Problems: Subjective 24 Hr Interval Summary Free Text/Dictation Patient's pain is well controlled, continues to have loose stools 2 today. Exam/Review of Systems Vital Signs Vitals Vital Signs Date Time Temp Pulse Resp B/P Pulse Ox O2 Delivery O2 Flow Rate FiO2 10/18/16 08:30 98.7 88 16 112/53 95 10/16/16 22:00 Room Air Intake and Output 10/17/16 10/17/16 10/18/16 15:00 23:00 07:00 Intake Total 700 ml 1030 ml 1140 ml Output Total 800 ml 900 ml Balance 700 ml 230 ml 240 ml Exam GENERAL: Well-developed, cachectic male, currently is awake, alert. HEENT: Head is atraumatic, normocephalic. PERRLA. NECK: Supple. No mass, no thyromegaly. LUNGS: Clear bilaterally. No rhonchi, wheezes, rales noted. HEART: Normal S1, S2. No murmurs, gallops, clicks, rubs noted. ABDOMEN: Flat, soft, nondistended, nontender. Bowel sounds present. EXTREMITIES: No edema. SKIN: There is no rash, petechiae noted. NEUROLOGIC: The patient is awake, alert, and oriented x3. Results Result Diagram: 10/18/16 0450 10/18/16 0420 Results 24 hrs Laboratory Tests Test 10/18/16 04:20 10/18/16 04:50 Alanine Aminotransferase (ALT/SGPT) 28 Albumin 2.3 L Albumin/Globulin Ratio 0.88 Alkaline Phosphatase 415 H Anion Gap 11 Aspartate Amino Transf (AST/SGOT) 24 Blood Urea Nitrogen 3 L Calcium Level 7.4 L Carbon Dioxide Level 24 Chloride Level 102 Creatinine 0.30 L Direct Bilirubin 0.00 Globulin 2.60 Glucose Level 87 Indirect Bilirubin 0.2 Potassium Level 4.1 Sodium Level 133 L Total Bilirubin 0.2 Total Protein 4.9 L Ammonia 22 Basophils # 0.0 Basophils % 0.4 Blood Morphology Comment Eosinophils # 0.0 Eosinophils % 0.0 Hematocrit 34.7 L Hemoglobin 12.0 L Lymphocytes # 0.4 L Lymphocytes % 19.8 Mean Corpuscular Hemoglobin 29.6 Mean Corpuscular Hemoglobin Concent 34.6 Mean Corpuscular Volume 85.6 Mean Platelet Volume 7.8 Monocytes # 0.2 L Monocytes % 10.6 Neutrophils # 1.6 Neutrophils % 69.2 Nucleated Red Blood Cells # 0.0 Nucleated Red Blood Cells % 0.0 Platelet Count 90 L Red Blood Count 4.05 L Red Cell Distribution Width 15.8 H White Blood Count 2.3 L Medications Medications Current Medications Bicalutamide (Casodex) 50 mg QAM PO Last administered on 10/18/16 08:11; Admin Dose 50 MG; Start 09/07/16 at 09:00 Docusate Sodium (Colace) 100 mg BID PRN PO CONSTIPATION Last administered on 05:22; Admin Dose 100 MG; Start 09/07/16 at 00:00; Status Future Hold Escitalopram Oxalate (Lexapro) 5 mg DAILY PO Last administered on 10/18/16 08: 07; Admin Dose 5 MG; Start 09/07/16 at 09:00 Megestrol Acetate (Megace Susp) 400 mg BID PO Last administered on 10/18/16 08 :08; Admin Dose 400 MG; Start 09/07/16 at 09:00 Methylnaltrexone [place] (Relistor) 12 mg Q48H SC Last administered on 23:54; Admin Dose 12 MG; Start 09/07/16 at 00:00; Status Future Hold Ondansetron HCl (Zofran Tab) 4 mg Q6H PRN PO NAUSEA AND/OR VOMITING Last administered on 10/05/16 19:46; Admin Dose 4 MG; Start 09/07/16 at 00:00 Acetaminophen (Tylenol Tab) 500 mg Q4H PRN PO PAIN AND OR ELEVATED TEMP Last administered on 10/05/16 15:37; Admin Dose 500 MG; Start 09/07/16 at 21:30 IV Flush (NS 10 ml) 10 ml PRN PRN IV IV PROTOCOL; Start 09/11/16 at 10:00 Calcium/Vitamin D (Oyster Shell/ Vit-D (500/200)) 1 tab BID PO Last administered on 10/18/16 08:07; Admin Dose 1 TAB; Start 09/12/16 at 14:00 IV Flush (NS 10 ml) 10 ml PRN PRN IV IV PROTOCOL; Start 09/21/16 at 12:00 Methadone HCl 2 mg 2 mg Q6 PO Last administered on 10/18/16 05:42; Admin Dose 2 MG; Start 09/23/16 at 18:00 Potassium Chloride/Sodium Chloride 1,000 ml @ 70 mls/hr [id number] IV Last administered on 10/17/16 23:07; Admin Dose 70 MLS/HR; Start 09/28/16 at 16:30 Ondansetron HCl/ Sodium Chloride (Zofran Inj/NS) 54 ml @ 216 mls/hr Q12H PRN IV NAUSEA AND/OR VOMITING; Start 09/29/16 at 22:00 Prednisone 5 mg 5 mg BID PO Last administered on 10/18/16 08:07; Admin Dose 5 MG; Start 09/29/16 at 21:00 Docetaxel 45 mg/ Sodium Chloride 100 ml @ 100 mls/hr Th@22 IV Last administered on 10/13/16 22:33; Admin Dose 100 MLS/HR; Start 10/06/16 at 22:00 ; Stop 10/27/16 at 22:59 Ondansetron HCl/ Dexamethasone/ Dextrose (Zofran Inj/ Decadron/D5W) 60 ml @ 252 mls/hr Th@2130 IV Last administered on 10/13/16 21:45; Admin Dose 252 MLS/ HR; Start 10/06/16 at 21:30; Stop 10/27/16 at 21:45 Hydromorphone HCl (Dilaudid) 1.5 mg Q3H PRN IV PAIN Last administered on 16:38; Admin Dose 1.5 MG; Start 10/07/16 at 03:00 Bisacodyl (Dulcolax Supp) 10 mg DAILY PRN [place] CONSTIPATION Last administered on 10/07/16 03:07; Admin Dose 10 MG; Start 10/07/16 at 03:00 Rifaximin (Xifaxan) 200 mg TID PO Last administered on 10/18/16 14:28; Admin Dose 200 MG; Start 10/16/16 at 21:00; Stop 10/20/16 at 20:59 Fidaxomicin (Dificid) 200 mg BID PO Last administered on 10/18/16 08:07; Admin Dose 200 MG; Start 10/17/16 at 10:30 SREE GRIFFITH Oct 18, 2016 17:31
[2016-10-18 21:02] VITALS: BP 121/76; RESP 14
--- NOTE | 2016-10-18 21:27 | CONS ---
Date/Time of Note Date/Time of Note DATE: 10/18/16 TIME: 21:25 Assessment/Plan Assessment/Plan Chief Complaint/Hosp Course Metastatic prostate cancer. FAMILY CONFERENCE RE DX, PROGNOSIS AND TREATMENT OPTIONS RE: chemotherapy and steroids - PER PROTOCOL Chemotherapy Docetaxel (Taxotere) 30 mg/m2 IV over 30 minutes once per day on days 1, 8, 15, 22, 29 Prednisone (Sterapred) 5 mg PO BID on days 1 to 42 Supportive medications Dexamethasone (Decadron) 8 mg (route not specified) once 1 hour before Docetaxel (Taxotere) Antiemetics "according to local practice" 42-day cycle for up to 5 cycles ANEMIA POST PRBC MONITOR CLOSELY OBSERVE FOR BLEEDING AND HEMOLYSIS Thrombocytopenia. Continue to monitor platelets. transfuse as needed PANCYTOPENIA MONITOR DECONDITIONING PT Acute on chronic back pain. PAIN CONTROL C DIFF COLITIS ATB PER ID Problems: Consultation Date/Type/Reason Admit Date/Time Sep 06, 2016 at 22:01 Initial Consult Date 09/08/16 Referring Provider: TIMOTHY MARAVILLA MD 24 HR Interval Summary Free Text/Dictation all noted count going down afebrile no bleeding Exam/Review of Systems Vital Signs Vitals Vital Signs Date Time Temp Pulse Resp B/P Pulse Ox O2 Delivery O2 Flow Rate FiO2 10/18/16 21:02 97.3 86 14 121/76 97 10/16/16 22:00 Room Air Intake and Output 10/17/16 10/17/16 10/18/16 15:00 23:00 07:00 Intake Total 700 ml 1030 ml 1140 ml Output Total 800 ml 900 ml Balance 700 ml 230 ml 240 ml Exam GENERAL: Well-developed, cachectic male, currently is awake, alert. HEENT: Head is atraumatic, normocephalic. PERRLA. NECK: Supple. No mass, no thyromegaly. LUNGS: Clear bilaterally. No rhonchi, wheezes, rales noted. HEART: Normal S1, S2. No murmurs, gallops, clicks, rubs noted. ABDOMEN: Flat, soft, nondistended, nontender. Bowel sounds present. EXTREMITIES: No edema. SKIN: There is no rash, petechiae noted. NEUROLOGIC: The patient is awake, alert, and oriented x3. Results Result Diagram: 10/18/16 0450 10/18/16 0420 Results 24 hrs Laboratory Tests Test 10/18/16 04:20 10/18/16 04:50 Alanine Aminotransferase (ALT/SGPT) 28 Albumin 2.3 L Albumin/Globulin Ratio 0.88 Alkaline Phosphatase 415 H Anion Gap 11 Aspartate Amino Transf (AST/SGOT) 24 Blood Urea Nitrogen 3 L Calcium Level 7.4 L Carbon Dioxide Level 24 Chloride Level 102 Creatinine 0.30 L Direct Bilirubin 0.00 Globulin 2.60 Glucose Level 87 Indirect Bilirubin 0.2 Potassium Level 4.1 Sodium Level 133 L Total Bilirubin 0.2 Total Protein 4.9 L Ammonia 22 Basophils # 0.0 Basophils % 0.4 Blood Morphology Comment Eosinophils # 0.0 Eosinophils % 0.0 Hematocrit 34.7 L Hemoglobin 12.0 L Lymphocytes # 0.4 L Lymphocytes % 19.8 Mean Corpuscular Hemoglobin 29.6 Mean Corpuscular Hemoglobin Concent 34.6 Mean Corpuscular Volume 85.6 Mean Platelet Volume 7.8 Monocytes # 0.2 L Monocytes % 10.6 Neutrophils # 1.6 Neutrophils % 69.2 Nucleated Red Blood Cells # 0.0 Nucleated Red Blood Cells % 0.0 Platelet Count 90 L Red Blood Count 4.05 L Red Cell Distribution Width 15.8 H White Blood Count 2.3 L Medications Medications Current Medications Bicalutamide (Casodex) 50 mg QAM PO Last administered on 10/18/16 08:11; Admin Dose 50 MG; Start 09/07/16 at 09:00 Docusate Sodium (Colace) 100 mg BID PRN PO CONSTIPATION Last administered on 05:22; Admin Dose 100 MG; Start 09/07/16 at 00:00; Status Future Hold Escitalopram Oxalate (Lexapro) 5 mg DAILY PO Last administered on 10/18/16 08: 07; Admin Dose 5 MG; Start 09/07/16 at 09:00 Megestrol Acetate (Megace Susp) 400 mg BID PO Last administered on 10/18/16 08 :08; Admin Dose 400 MG; Start 09/07/16 at 09:00 Methylnaltrexone [place] (Relistor) 12 mg Q48H SC Last administered on 23:54; Admin Dose 12 MG; Start 09/07/16 at 00:00; Status Future Hold Ondansetron HCl (Zofran Tab) 4 mg Q6H PRN PO NAUSEA AND/OR VOMITING Last administered on 10/05/16 19:46; Admin Dose 4 MG; Start 09/07/16 at 00:00 Acetaminophen (Tylenol Tab) 500 mg Q4H PRN PO PAIN AND OR ELEVATED TEMP Last administered on 10/05/16 15:37; Admin Dose 500 MG; Start 09/07/16 at 21:30 IV Flush (NS 10 ml) 10 ml PRN PRN IV IV PROTOCOL; Start 09/11/16 at 10:00 Calcium/Vitamin D (Oyster Shell/ Vit-D (500/200)) 1 tab BID PO Last administered on 10/18/16 08:07; Admin Dose 1 TAB; Start 09/12/16 at 14:00 IV Flush (NS 10 ml) 10 ml PRN PRN IV IV PROTOCOL; Start 09/21/16 at 12:00 Methadone HCl 2 mg 2 mg Q6 PO Last administered on 10/18/16 05:42; Admin Dose 2 MG; Start 09/23/16 at 18:00 Potassium Chloride/Sodium Chloride 1,000 ml @ 70 mls/hr [id number] IV Last administered on 10/17/16 23:07; Admin Dose 70 MLS/HR; Start 09/28/16 at 16:30 Ondansetron HCl/ Sodium Chloride (Zofran Inj/NS) 54 ml @ 216 mls/hr Q12H PRN IV NAUSEA AND/OR VOMITING; Start 09/29/16 at 22:00 Prednisone 5 mg 5 mg BID PO Last administered on 10/18/16 08:07; Admin Dose 5 MG; Start 09/29/16 at 21:00 Docetaxel 45 mg/ Sodium Chloride 100 ml @ 100 mls/hr Th@22 IV Last administered on 10/13/16 22:33; Admin Dose 100 MLS/HR; Start 10/06/16 at 22:00 ; Stop 10/27/16 at 22:59 Ondansetron HCl/ Dexamethasone/ Dextrose (Zofran Inj/ Decadron/D5W) 60 ml @ 252 mls/hr Th@2130 IV Last administered on 10/13/16 21:45; Admin Dose 252 MLS/ HR; Start 10/06/16 at 21:30; Stop 10/27/16 at 21:45 Hydromorphone HCl (Dilaudid) 1.5 mg Q3H PRN IV PAIN Last administered on 19:41; Admin Dose 1.5 MG; Start 10/07/16 at 03:00 Bisacodyl (Dulcolax Supp) 10 mg DAILY PRN [place] CONSTIPATION Last administered on 10/07/16 03:07; Admin Dose 10 MG; Start 10/07/16 at 03:00 Rifaximin (Xifaxan) 200 mg TID PO Last administered on 10/18/16 14:28; Admin Dose 200 MG; Start 10/16/16 at 21:00; Stop 10/20/16 at 20:59 Fidaxomicin (Dificid) 200 mg BID PO Last administered on 10/18/16 08:07; Admin Dose 200 MG; Start 10/17/16 at 10:30 JARAD CHOI MD Oct 18, 2016 21:27
[2016-10-18] MEDS: NS + KCL 20 MEQ 1,000 ML IV SCH (23:01)
[2016-10-19] MEDS: METHADONE (1 MG/1 ML PO SYG) PO SCH ×6 (00:25→23:55)
[2016-10-19] MEDS: HYDROmorphONE 2 MG/ML SYG IV PRN ×6 (02:34→21:48)
[2016-10-19] MEDS: NS + KCL 20 MEQ 1,000 ML IV SCH ×2 (05:42→21:41)
[2016-10-19 08:19] VITALS: BP 111/76; RESP 19
[2016-10-19] MEDS: PANTOPRAZOLE (EC) 40 MG TAB PO SCH ×2 (09:09→18:16)
[2016-10-19] MEDS: ESCITALOPRAM 10 MG TAB PO SCH (09:10)
[2016-10-19] MEDS: CALCIUM/VITAMIN D (500/200) TAB PO SCH ×2 (09:10→21:43)
[2016-10-19] MEDS: RIFAXIMIN 200 MG TAB PO SCH ×3 (09:10→21:43)
[2016-10-19] MEDS: predniSONE 5 MG TAB PO SCH ×2 (09:10→21:43)
[2016-10-19] MEDS: FIDAXOMICIN 200 MG TABLET PO SCH ×2 (09:11→21:43)
[2016-10-19] MEDS: MEGESTROL (40 MG/ML) 10ML CUP PO SCH ×2 (09:11→21:43)
[2016-10-19] MEDS: BICALUTAMIDE 50 MG TAB PO SCH (09:21)
--- NOTE | 2016-10-19 09:49 | CONS ---
Date/Time of Note Date/Time of Note DATE: 10/19/16 TIME: 09:49 Assessment/Plan Assessment/Plan Chief Complaint/Hosp Course Metastatic prostate cancer. FAMILY CONFERENCE RE DX, PROGNOSIS AND TREATMENT OPTIONS RE: chemotherapy and steroids - PER PROTOCOL Chemotherapy Docetaxel (Taxotere) 30 mg/m2 IV over 30 minutes once per day on days 1, 8, 15, 22, 29 Prednisone (Sterapred) 5 mg PO BID on days 1 to 42 Supportive medications Dexamethasone (Decadron) 8 mg (route not specified) once 1 hour before Docetaxel (Taxotere) Antiemetics "according to local practice" 42-day cycle for up to 5 cycles ANEMIA POST PRBC MONITOR CLOSELY OBSERVE FOR BLEEDING AND HEMOLYSIS Thrombocytopenia. Continue to monitor platelets. transfuse as needed PANCYTOPENIA MONITOR DECONDITIONING PT Acute on chronic back pain. PAIN CONTROL C DIFF COLITIS ATB PER ID Problems: Consultation Date/Type/Reason Admit Date/Time Sep 06, 2016 at 22:01 Initial Consult Date 09/08/16 Referring Provider: TIMOTHY MARAVILLA MD 24 HR Interval Summary Free Text/Dictation WEAK FRO CHEMO TOMORROW COUNT REVIEWED Exam/Review of Systems Vital Signs Vitals Vital Signs Date Time Temp Pulse Resp B/P Pulse Ox O2 Delivery O2 Flow Rate FiO2 10/19/16 08:19 98.0 81 19 111/76 99 10/16/16 22:00 Room Air Intake and Output 10/18/16 10/18/16 10/19/16 15:00 23:00 07:00 Intake Total 1280 ml 470 ml Output Total 800 ml 1000 ml Balance 480 ml -530 ml Exam GENERAL: Cachectic, elderly man, in no distress. HEENT: Head atraumatic, normocephalic. Sclerae anicteric. Buccal mucosa dry. NECK: Supple, trachea midline. CHEST: Chest rise is symmetrical. Breath sounds diminished to the bases. HEART: S1, S2. ABDOMEN: Soft, bowel tones present. EXTREMITIES: Without cyanosis. Results Result Diagram: 10/18/16 0450 10/18/16 0420 Medications Medications Current Medications Bicalutamide (Casodex) 50 mg QAM PO Last administered on 10/19/16t 09:21; Admin Dose 50 MG; Start 09/07/16 at 09:00 Docusate Sodium (Colace) 100 mg BID PRN PO CONSTIPATION Last administered on 05:22; Admin Dose 100 MG; Start 09/07/16 at 00:00; Status Future Hold Escitalopram Oxalate (Lexapro) 5 mg DAILY PO Last administered on 10/19/16 09: 10; Admin Dose 5 MG; Start 09/07/16 at 09:00 Megestrol Acetate (Megace Susp) 400 mg BID PO Last administered on 10/19/16 09: 11; Admin Dose 400 MG; Start 09/07/16 at 09:00 Methylnaltrexone [place] (Relistor) 12 mg Q48H SC Last administered on 23:54; Admin Dose 12 MG; Start 09/07/16 at 00:00; Status Future Hold Ondansetron HCl (Zofran Tab) 4 mg Q6H PRN PO NAUSEA AND/OR VOMITING Last administered on 10/05/16 19:46; Admin Dose 4 MG; Start 09/07/16 at 00:00 Acetaminophen (Tylenol Tab) 500 mg Q4H PRN PO PAIN AND OR ELEVATED TEMP Last administered on 10/05/16 15:37; Admin Dose 500 MG; Start 09/07/16 at 21:30 IV Flush (NS 10 ml) 10 ml PRN PRN IV IV PROTOCOL; Start 09/11/16 at 10:00 Calcium/Vitamin D (Oyster Shell/ Vit-D (500/200)) 1 tab BID PO Last administered on 10/19/16 09:10; Admin Dose 1 TAB; Start 09/12/16 at 14:00 IV Flush (NS 10 ml) 10 ml PRN PRN IV IV PROTOCOL; Start 09/21/16 at 12:00 Methadone HCl 2 mg 2 mg Q6 PO Last administered on 10/19/16 05:10; Admin Dose 2 MG; Start 09/23/16 at 18:00 Potassium Chloride/Sodium Chloride 1,000 ml @ 70 mls/hr [id number] IV Last administered on 10/19/16 05:42; Admin Dose 70 MLS/HR; Start 09/28/16 at 16:30 Ondansetron HCl/ Sodium Chloride (Zofran Inj/NS) 54 ml @ 216 mls/hr Q12H PRN IV NAUSEA AND/OR VOMITING; Start 09/29/16 at 22:00 Prednisone 5 mg 5 mg BID PO Last administered on 10/19/16 09:10; Admin Dose 5 MG; Start 09/29/16 at 21:00 Docetaxel 45 mg/ Sodium Chloride 100 ml @ 100 mls/hr Th@22 IV Last administered on 10/13/16 22:33; Admin Dose 100 MLS/HR; Start 10/06/16 at 22:00 ; Stop 10/27/16 at 22:59 Ondansetron HCl/ Dexamethasone/ Dextrose (Zofran Inj/ Decadron/D5W) 60 ml @ 252 mls/hr Th@2130 IV Last administered on 10/13/16 21:45; Admin Dose 252 MLS/ HR; Start 10/06/16 at 21:30; Stop 10/27/16 at 21:45 Hydromorphone HCl (Dilaudid) 1.5 mg Q3H PRN IV PAIN Last administered on 09:07; Admin Dose 1.5 MG; Start 10/07/16 at 03:00 Bisacodyl (Dulcolax Supp) 10 mg DAILY PRN [place] CONSTIPATION Last administered on 10/07/16 03:07; Admin Dose 10 MG; Start 10/07/16 at 03:00 Rifaximin (Xifaxan) 200 mg TID PO Last administered on 10/19/16 09:10; Admin Dose 200 MG; Start 10/16/16 at 21:00; Stop 10/20/16 at 20:59 Fidaxomicin (Dificid) 200 mg BID PO Last administered on 10/19/16 09:11; Admin Dose 200 MG; Start 10/17/16 at 10:30 JARAD CHOI MD Oct 19, 2016 09:49
[2016-10-19 11:27] LABS: BASOPHILS % 0.6 % (0.0-2.0); EOSINOPHILS % 0.2 % (0.0-7.0); HEMOGLOBIN 12.2 g/dl (14.0-18.0); LYMPHOCYTES # 0.5 10^3/ul (0.8-2.9); LYMPHOCYTES % 23.1 % (15.0-51.0); MEAN CORPUSCULAR HEMOGLOBIN 29.3 pg (29.0-33.0); MEAN CORPUSCULAR VOLUME 86.3 fl (82.0-101.0); MEAN PLATELET VOLUME 7.8 fl (7.4-10.4); MONOCYTE # 0.3 10^3/ul (0.3-0.9); MONOCYTES % 15.9 % (0.0-11.0); NEUTROPHIL # 1.2 10^3/ul (1.6-7.5); NEUTROPHILS % 60.2 % (39.0-77.0); NUCLEATED RED BLOOD CELLS% 3.4 /100WBC (0.0-0.0); PLATELET COUNT 92 10^3/UL (140-440); RED BLOOD COUNT 4.17 10^6/ul (4.70-6.10); RED CELL DISTRIBUTION WIDTH 15.9 % (11.5-14.5); UNCORRECTED WBC 2.1 10^3/ul (4.8-10.8); WHITE BLOOD COUNT 2.1 10^3/ul (4.8-10.8)
[2016-10-19 11:32] LABS: CONDITION 1; LH ANALYZER COMMENTS 1; NUCLEATED RED BLOOD CELLS # 0.1 10^3/ul (0.0-0.0)
--- NOTE | 2016-10-19 13:20 | PN ---
Date/Time of Note Date/Time of Note DATE: 10/19/16 TIME: 13:19 Assessment/Plan VTE Prophylaxis VTE Prophylaxis Intervention: SCD's Lines/Catheters IV Catheter Type (from Nrs): PICC Line Central line still needed: Yes Urinary Cath still in place: Yes Reason Cath still needed: urinary retention Assessment/Plan Chief Complaint/Hosp Course ASSESSMENT AND PLAN: 1. Clostridium difficile colitis. Contact isolation. Patient is followed by Dr. Schuler group from infectious disease standpoint. Patient is currently on rifaximin and Dificid. 2. Metastatic prostate cancer. Dr. Hernandez is following patient in oncology consultation. Continue chemotherapy and steroids. 3. Thrombocytopenia. Continue to monitor platelets. 4. Acute on chronic back pain. Dr. Ferguson is following the patient in pain management. Continue methadone and Dilaudid p.r.n. for breakthrough pain. 5. Anemia, this post blood transfusion, continue to monitor hemoglobin and hematocrit. 6. MRSA UTI, status post treatment Dr Schuler is following in infectious disease consultation. 7. Protein calorie malnutrition, continue Megace, continue high-protein and high-calorie diet. Continue Protonix for peptic ulcer disease prophylaxis. Further recommendations based on clinical course. Plan of care discussed with Dr. Nichols. Problems: Subjective 24 Hr Interval Summary Free Text/Dictation Patient complains of pain, continues to have poor appetite. I talked to the patient regarding the nutritional status, patient agreed to feeding via NG tube. Exam/Review of Systems Vital Signs Vitals Vital Signs Date Time Temp Pulse Resp B/P Pulse Ox O2 Delivery O2 Flow Rate FiO2 10/19/16 08:19 98.0 81 19 111/76 99 10/16/16 22:00 Room Air Intake and Output 10/18/16 10/18/16 10/19/16 15:00 23:00 07:00 Intake Total 1280 ml 470 ml Output Total 800 ml 1000 ml Balance 480 ml -530 ml Exam GENERAL: Well-developed, cachectic male, currently is awake, alert. HEENT: Head is atraumatic, normocephalic. PERRLA. NECK: Supple. No mass, no thyromegaly. LUNGS: Clear bilaterally. No rhonchi, wheezes, rales noted. HEART: Normal S1, S2. No murmurs, gallops, clicks, rubs noted. ABDOMEN: Flat, soft, nondistended, nontender. Bowel sounds present. EXTREMITIES: No edema. SKIN: There is no rash, petechiae noted. NEUROLOGIC: The patient is awake, alert, and oriented x3. Results Result Diagram: 10/19/16 1040 10/18/16 0420 Results 24 hrs Laboratory Tests Test 10/19/16 10:40 Basophils # 0.0 Basophils % 0.6 Blood Morphology Comment Differential Comment AUTO w/SCAN Eosinophils # 0.0 Eosinophils % 0.2 Hematocrit 36.0 L Hemoglobin 12.2 L Lymphocytes # 0.5 L Lymphocytes % 23.1 Mean Corpuscular Hemoglobin 29.3 Mean Corpuscular Hemoglobin Concent 34.0 Mean Corpuscular Volume 86.3 Mean Platelet Volume 7.8 Monocytes # 0.3 Monocytes % 15.9 H Neutrophils # 1.2 L Neutrophils % 60.2 Nucleated Red Blood Cells # 0.1 H Nucleated Red Blood Cells % 3.4 H Platelet Count 92 L Red Blood Count 4.17 L Red Cell Distribution Width 15.9 H White Blood Count 2.1 L Medications Medications Current Medications Bicalutamide (Casodex) 50 mg QAM PO Last administered on 10/19/16 09:21; Admin Dose 50 MG; Start 09/07/16 at 09:00 Docusate Sodium (Colace) 100 mg BID PRN PO CONSTIPATION Last administered on 05:22; Admin Dose 100 MG; Start 09/07/16 at 00:00; Status Future Hold Escitalopram Oxalate (Lexapro) 5 mg DAILY PO Last administered on 10/19/16 09: 10; Admin Dose 5 MG; Start 09/07/16 at 09:00 Megestrol Acetate (Megace Susp) 400 mg BID PO Last administered on 10/19/16 09: 11; Admin Dose 400 MG; Start 09/07/16 at 09:00 Methylnaltrexone [place] (Relistor) 12 mg Q48H SC Last administered on 23:54; Admin Dose 12 MG; Start 09/07/16 at 00:00; Status Future Hold Ondansetron HCl (Zofran Tab) 4 mg Q6H PRN PO NAUSEA AND/OR VOMITING Last administered on 10/05/16 19:46; Admin Dose 4 MG; Start 12/21/16 at 00:00 Acetaminophen (Tylenol Tab) 500 mg Q4H PRN PO PAIN AND OR ELEVATED TEMP Last administered on 10/05/16 15:37; Admin Dose 500 MG; Start 09/07/16 at 21:30 IV Flush (NS 10 ml) 10 ml PRN PRN IV IV PROTOCOL; Start 09/11/16 at 10:00 Calcium/Vitamin D (Oyster Shell/ Vit-D (500/200)) 1 tab BID PO Last administered on 10/19/16 09:10; Admin Dose 1 TAB; Start 09/12/16 at 14:00 IV Flush (NS 10 ml) 10 ml PRN PRN IV IV PROTOCOL; Start 09/21/16 at 12:00 Methadone HCl 2 mg 2 mg Q6 PO Last administered on 10/19/16 12:15; Admin Dose 2 MG; Start 09/23/16 at 18:00 Potassium Chloride/Sodium Chloride 1,000 ml @ 70 mls/hr [id number] IV Last administered on 10/19/16 05:42; Admin Dose 70 MLS/HR; Start 09/28/16 at 16:30 Ondansetron HCl/ Sodium Chloride (Zofran Inj/NS) 54 ml @ 216 mls/hr Q12H PRN IV NAUSEA AND/OR VOMITING; Start 09/29/16 at 22:00 Prednisone 5 mg 5 mg BID PO Last administered on 10/19/16 09:10; Admin Dose 5 MG; Start 09/29/16 at 21:00 Docetaxel 45 mg/ Sodium Chloride 100 ml @ 100 mls/hr Th@22 IV Last administered on 10/13/16 22:33; Admin Dose 100 MLS/HR; Start 10/06/16 at 22:00 ; Stop 10/27/16 at 22:59 Ondansetron HCl/ Dexamethasone/ Dextrose (Zofran Inj/ Decadron/D5W) 60 ml @ 252 mls/hr Th@2130 IV Last administered on 10/13/16 21:45; Admin Dose 252 MLS/ HR; Start 10/06/16 at 21:30; Stop 10/27/16 at 21:45 Hydromorphone HCl (Dilaudid) 1.5 mg Q3H PRN IV PAIN Last administered on 12:34; Admin Dose 1.5 MG; Start 10/07/16 at 03:00 Bisacodyl (Dulcolax Supp) 10 mg DAILY PRN [place] CONSTIPATION Last administered on 10/07/16 03:07; Admin Dose 10 MG; Start 10/07/16 at 03:00 Rifaximin (Xifaxan) 200 mg TID PO Last administered on 10/19/16 12:15; Admin Dose 200 MG; Start 10/16/16 at 21:00; Stop 10/20/16 at 20:59 Fidaxomicin (Dificid) 200 mg BID PO Last administered on 10/19/16 09:11; Admin Dose 200 MG; Start 10/17/16 at 10:30 SREE GRIFFITH Oct 19, 2016 13:20
--- NOTE | 2016-10-19 13:58 | CONS ---
Date/Time of Note Date/Time of Note DATE: 10/19/16 TIME: 13:57 Assessment/Plan Assessment/Plan Additional Assessment/Plan Assessment/Plan Additional Assessment/Plan Impression: 1. Clostridium difficile colitis. Continues to have persistent diarrhea 2. Abdominal pain: worsening, associated with nausea and vomiting. ddx include C. diff colitis vs side effects from chemotherapy vs gastritis, duodenitis, esophagitis. 3. anemia 4. Metastatic prostate cancer. Dr. Hernandez is following patient in oncology consultation. Continue chemotherapy and steroids. 5. MRSA 6. Abnormal alkaline po4 secondary to jose mets. 7.diarrhea secondary to C.Difficile Recommendations: 1. Continue vancomycin for C. Diff. Consider fidaxomicin per ID. 2. f/uCMV PCR as pt is immunosuppressed and to r/o possible CMV colitis/ enteritis as cause of diarrhea 3. continue pain control 4. ordered occult stool blood negative 5. abx per ID 6. d/c Protonix ,it will aggravate 7. continue other supportive care per pcp and other consultants Consultation Date/Type/Reason Admit Date/Time Sep 06, 2016 at 22:01 Initial Consult Date 09/08/16 Referring Provider: TIMOTHY MARAVILLA MD 24 HR Interval Summary Free Text/Dictation diarrhea Exam/Review of Systems Vital Signs Vitals Vital Signs Date Time Temp Pulse Resp B/P Pulse Ox O2 Delivery O2 Flow Rate FiO2 10/19/16 08:19 98.0 81 19 111/76 99 10/16/16 22:00 Room Air Intake and Output 10/18/16 10/18/16 10/19/16 15:00 23:00 07:00 Intake Total 1280 ml 470 ml Output Total 800 ml 1000 ml Balance 480 ml -530 ml Exam Constitutional: alert, oriented, well developed Psych: nl mood/affect, no complaints Head: atraumatic, normocephalic Eyes: EOMI, PERRL, nl conjunctiva, nl lids, nl sclera ENMT: nl external ears & nose, nl lips & teeth, nl nasal mucosa & septum Neck: non-tender, supple Respiratory: clear to auscultation, normal air movement Cardiovascular: nl pulses, regular rate and rhythm Gastrointestinal: nl liver, spleen, non-tender, soft Musculoskeletal: nl extremities to inspection, nl gait and stance Extremities: normal pulses 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: 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, nl mental status, nl speech, nl strength Skin: nl turgor, No rash or lesions Lymph: nl lymph nodes Results Result Diagram: 10/19/16 1040 10/18/16 0420 Results 24 hrs Laboratory Tests Test 10/19/16 10:40 Basophils # 0.0 Basophils % 0.6 Blood Morphology Comment Differential Comment AUTO w/SCAN Eosinophils # 0.0 Eosinophils % 0.2 Hematocrit 36.0 L Hemoglobin 12.2 L Lymphocytes # 0.5 L Lymphocytes % 23.1 Mean Corpuscular Hemoglobin 29.3 Mean Corpuscular Hemoglobin Concent 34.0 Mean Corpuscular Volume 86.3 Mean Platelet Volume 7.8 Monocytes # 0.3 Monocytes % 15.9 H Neutrophils # 1.2 L Neutrophils % 60.2 Nucleated Red Blood Cells # 0.1 H Nucleated Red Blood Cells % 3.4 H Platelet Count 92 L Red Blood Count 4.17 L Red Cell Distribution Width 15.9 H White Blood Count 2.1 L Medications Medications Current Medications Bicalutamide (Casodex) 50 mg QAM PO Last administered on 10/19/16 09:21; Admin Dose 50 MG; Start 09/07/16 at 09:00 Docusate Sodium (Colace) 100 mg BID PRN PO CONSTIPATION Last administered on 05:22; Admin Dose 100 MG; Start 09/07/16 at 00:00; Status Future Hold Escitalopram Oxalate (Lexapro) 5 mg DAILY PO Last administered on 10/19/16 09: 10; Admin Dose 5 MG; Start 09/07/16 at 09:00 Megestrol Acetate (Megace Susp) 400 mg BID PO Last administered on 10/19/16 09: 11; Admin Dose 400 MG; Start 09/07/16 at 09:00 Methylnaltrexone [place] (Relistor) 12 mg Q48H SC Last administered on 23:54; Admin Dose 12 MG; Start 09/07/16 at 00:00; Status Future Hold Ondansetron HCl (Zofran Tab) 4 mg Q6H PRN PO NAUSEA AND/OR VOMITING Last administered on 10/05/16 19:46; Admin Dose 4 MG; Start 09/07/16 at 00:00 Acetaminophen (Tylenol Tab) 500 mg Q4H PRN PO PAIN AND OR ELEVATED TEMP Last administered on 10/05/16 15:37; Admin Dose 500 MG; Start 09/07/16 at 21:30 IV Flush (NS 10 ml) 10 ml PRN PRN IV IV PROTOCOL; Start 09/11/16 at 10:00 Calcium/Vitamin D (Oyster Shell/ Vit-D (500/200)) 1 tab BID PO Last administered on 10/19/16 09:10; Admin Dose 1 TAB; Start 09/12/16 at 14:00 IV Flush (NS 10 ml) 10 ml PRN PRN IV IV PROTOCOL; Start 09/21/16 at 12:00 Methadone HCl 2 mg 2 mg Q6 PO Last administered on 10/19/16 12:15; Admin Dose 2 MG; Start 09/23/16 at 18:00 Potassium Chloride/Sodium Chloride 1,000 ml @ 70 mls/hr [id number] IV Last administered on 10/19/16 05:42; Admin Dose 70 MLS/HR; Start 09/28/16 at 16:30 Ondansetron HCl/ Sodium Chloride (Zofran Inj/NS) 54 ml @ 216 mls/hr Q12H PRN IV NAUSEA AND/OR VOMITING; Start 09/29/16 at 22:00 Prednisone 5 mg 5 mg BID PO Last administered on 10/19/16 09:10; Admin Dose 5 MG; Start 09/29/16 at 21:00 Docetaxel 45 mg/ Sodium Chloride 100 ml @ 100 mls/hr Th@22 IV Last administered on 10/13/16 22:33; Admin Dose 100 MLS/HR; Start 10/06/16 at 22:00 ; Stop 10/27/16 at 22:59 Ondansetron HCl/ Dexamethasone/ Dextrose (Zofran Inj/ Decadron/D5W) 60 ml @ 252 mls/hr Th@2130 IV Last administered on 10/13/16 21:45; Admin Dose 252 MLS/ HR; Start 10/06/16 at 21:30; Stop 10/27/16 at 21:45 Hydromorphone HCl (Dilaudid) 1.5 mg Q3H PRN IV PAIN Last administered on 12:34; Admin Dose 1.5 MG; Start 10/07/16 at 03:00 Bisacodyl (Dulcolax Supp) 10 mg DAILY PRN [place] CONSTIPATION Last administered on 10/07/16 03:07; Admin Dose 10 MG; Start 10/07/16 at 03:00 Rifaximin (Xifaxan) 200 mg TID PO Last administered on 10/19/16 12:15; Admin Dose 200 MG; Start 10/16/16 at 21:00; Stop 10/20/16 at 20:59 Fidaxomicin (Dificid) 200 mg BID PO Last administered on 10/19/16 09:11; Admin Dose 200 MG; Start 10/17/16 at 10:30 MICHAEL COELHO MD Oct 19, 2016 13:58
--- NOTE | 2016-10-19 15:14 | PN ---
DATE: 10/19/2016 SUBJECTIVE: No acute events overnight. The patient is lying comfortably in bed. No fevers. WBC today 2.1, platelets 92, no shift. BUN 3, creatinine 0.30. ANTIMICROBIALS: The patient is on rifaximin and Dificid. INDWELLINGS: White, PICC. PHYSICAL EXAMINATION: GENERAL: Cachectic elderly man who is in no distress. HEENT: Head atraumatic, normocephalic. Sclerae anicteric. Buccal mucosa dry. NECK: Supple, trachea midline. CHEST: Rise symmetrical. Breath sounds diminished to bases. HEART: S1, S2. ABDOMEN: Soft. Bowel tones present. ASSESSMENT: 1. Clostridium difficile colitis. 2. Status post methicillin-resistant Staphylococcus aureus urinary tract infection. 3. Status post . 4. Cachexia. PLAN: The patient remains stable on appropriate antimicrobials. GI oncology on case. Continue pre sent care. Dictated By: EUNICE [employer] TECHNICIAN for TIMOTHY MULLINS/ADRIANA Conf#: [id number] DID#: [id number]
--- NOTE | 2016-10-19 15:55 | CONS ---
Date/Time of Note Date/Time of Note DATE: 10/19/16 TIME: 15:54 Assessment/Plan Assessment/Plan Additional Assessment/Plan Impression: 1. Clostridium difficile colitis. Continues to have persistent diarrhea 2. Abdominal pain: worsening, associated with nausea and vomiting. ddx include C. Diff colitis vs side effects from chemotherapy vs gastritis, duodenitis, esophagitis. 3. anemia 4. Metastatic prostate cancer. Dr. Hernandez is following patient in oncology consultation. Continue chemotherapy and steroids. 5. MRSA 6. Abnormal alkaline po4 secondary to jose mets. 7.diarrhea secondary to C.Difficile Recommendations: 1. Continue vancomycin for C. Diff. Consider fidaxomicin per ID. 2. f/uCMV PCR as pt is immunosuppressed and to r/o possible CMV colitis/ enteritis as cause of diarrhea 3. continue pain control 4. ordered occult stool blood negative 5. abx per ID 6. d/c Protonix ,it will aggravate 7. continue other supportive care per pcp and other consultants [facility] Consult[facility] Date/Type/Reason Admit Date/Time Sep 06, 2016 at 22:01 Initial Consult Date 09/08/16 Referring Provider: TIMOTHY MARAVILLA MD 24 HR Interval Summary Free Text/Dictation crying,c/o pain diarrhea Exam/Review of Systems Vital Signs Vitals Vital Signs Date Time Temp Pulse Resp B/P Pulse Ox O2 Delivery O2 Flow Rate FiO2 10/19/16 08:19 98.0 81 19 111/76 99 10/16/16 22:00 Room Air Intake and Output 10/18/16 10/18/16 10/19/16 15:00 23:00 07:00 Intake Total 1280 ml 470 ml Output Total 800 ml 1000 ml Balance 480 ml -530 ml Exam Constitutional: alert, oriented, well developed Psych: nl mood/affect, no complaints Head: atraumatic, normocephalic Eyes: EOMI, PERRL, nl conjunctiva, nl lids, nl sclera ENMT: nl external ears & nose, nl lips & teeth, nl nasal mucosa & septum Neck: non-tender, supple Respiratory: clear to auscultation, normal air movement Cardiovascular: nl pulses, regular rate and rhythm Gastrointestinal: nl liver, spleen, non-tender, soft Musculoskeletal: nl extremities to inspection, nl gait and stance Extremities: normal pulses 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 II-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, nl mental status, nl speech, nl strength Skin: nl turgor, No rash or lesions Lymph: nl lymph nodes Results Result Diagram: 10/19/16 1040 10/18/16 0420 Results 24 hrs Laboratory Tests Test 10/19/16 10:40 Basophils # 0.0 Basophils % 0.6 Blood Morphology Comment Differential Comment AUTO w/SCAN Eosinophils # 0.0 Eosinophils % 0.2 Hematocrit 36.0 L Hemoglobin 12.2 L Lymphocytes # 0.5 L Lymphocytes % 23.1 Mean Corpuscular Hemoglobin 29.3 Mean Corpuscular Hemoglobin Concent 34.0 Mean Corpuscular Volume 86.3 Mean Platelet Volume 7.8 Monocytes # 0.3 Monocytes % 15.9 H Neutrophils # 1.2 L Neutrophils % 60.2 Nucleated Red Blood Cells # 0.1 H Nucleated Red Blood Cells % 3.4 H Platelet Count 92 L Red Blood Count 4.17 L Red Cell Distribution Width 15.9 H White Blood Count 2.1 L Medications Medications Current Medications Bicalutamide (Casodex) 50 mg QAM PO Last administered on 10/19/16 09:21; Admin Dose 50 MG; Start 09/07/16 at 09:00 Docusate Sodium (Colace) 100 mg BID PRN PO CONSTIPATION Last administered on 05:22; Admin Dose 100 MG; Start 09/07/16 at 00:00; Status Future Hold Escitalopram Oxalate (Lexapro) 5 mg DAILY PO Last administered on 10/19/16 09: 10; Admin Dose 5 MG; Start 09/07/16 at 09:00 Megestrol Acetate (Megace Susp) 400 mg BID PO Last administered on 10/19/16 09: 11; Admin Dose 400 MG; Start 09/07/16 at 09:00 Methylnaltrexone [place] (Relistor) 12 mg Q48H SC Last administered on 23:54; Admin Dose 12 MG; Start 09/07/16 at 00:00; Status Future Hold Ondansetron HCl (Zofran Tab) 4 mg Q6H PRN PO NAUSEA AND/OR VOMITING Last administered on 10/05/16 19:46; Admin Dose 4 MG; Start 09/07/16 at 00:00 Acetaminophen (Tylenol Tab) 500 mg Q4H PRN PO PAIN AND OR ELEVATED TEMP Last administered on 10/05/16 15:37; Admin Dose 500 MG; Start 09/07/16 at 21:30 IV Flush (NS 10 ml) 10 ml PRN PRN IV IV PROTOCOL; Start 09/11/16 at 10:00 Calcium/Vitamin D (Oyster Shell/ Vit-D (500/200)) 1 tab BID PO Last administered on 10/19/16 09:10; Admin Dose 1 TAB; Start 09/12/16 at 14:00 IV Flush 10 ml 10 ml PRN PRN IV IV PROTOCOL; Start 09/21/16 at 12:00 Potassium Chloride/Sodium Chloride 1,000 ml @ 70 mls/hr [id number] IV Last administered on 10/19/16 05:42; Admin Dose 70 MLS/HR; Start 09/28/16 at 16:30 Ondansetron HCl/ Sodium Chloride (Zofran Inj/NS) 54 ml @ 216 mls/hr Q12H PRN IV NAUSEA AND/OR VOMITING; Start 09/29/16 at 22:00 Prednisone 5 mg 5 mg BID PO Last administered on 10/19/16 09:10; Admin Dose 5 MG; Start 09/29/16 at 21:00 Docetaxel 45 mg/ Sodium Chloride 100 ml @ 100 mls/hr Th@22 IV Last administered on 10/13/16 22:33; Admin Dose 100 MLS/HR; Start 10/06/16 at 22:00 ; Stop 10/27/16 at 22:59 Ondansetron HCl/ Dexamethasone/ Dextrose (Zofran Inj/ Decadron/D5W) 60 ml @ 252 mls/hr Th@2130 IV Last administered on 10/13/16 21:45; Admin Dose 252 MLS/ HR; Start 10/06/16 at 21:30; Stop 10/27/16 at 21:45 Bisacodyl (Dulcolax Supp) 10 mg DAILY PRN [place] CONSTIPATION Last administered on 10/07/16 03:07; Admin Dose 10 MG; Start 10/07/16 at 03:00 Rifaximin (Xifaxan) 200 mg TID PO Last administered on 10/19/16 12:15; Admin Dose 200 MG; Start 10/16/16 at 21:00; Stop 10/20/16 at 20:59 Fidaxomicin (Dificid) 200 mg BID PO Last administered on 10/19/16t 09:11; Admin Dose 200 MG; Start 10/17/16 at 10:30 Hydromorphone HCl (Dilaudid) 2 mg Q3H PRN IV PAIN; Start 10/19/16 at 15:30 Methadone HCl (Methadone Liq (Ped)) 3 mg Q6 PO ; Start 10/19/16 at 18:00 MICHAEL COELHO MD Oct 19, 2016 15:55
[2016-10-19] MEDS: ONDANSETRON 4 MG TAB PO PRN (18:17)
[2016-10-19 19:56] VITALS: BP 114/70; RESP 19
--- NOTE | 2016-10-19 22:19 | RADRPT ---
PROCEDURE: XR Chest. CLINICAL INDICATION: Nasogastric tube placement TECHNIQUE: Single frontal view of the chest was obtained COMPARISON: CT chest dated 09/09/2016. Plain film chest dated 09/21/2016. FINDINGS: New nasogastric tube in place, with tip and side port in the mid to distal stomach. Left central venous line again seen with tip in superior vena cava. The heart and mediastinum are within normal limits. The lungs are clear. There is no pleural effusion or pneumothorax. Sclerotic changes throughout the osseous structures, representing osseous metastatic neoplasm deposi ts. Soft tissue pleural-based lesion again seen in right mid lung. IMPRESSION: New nasogastric tube in place, with tip and side port in the mid to distal stomach. RPTAT: [facility] Physician Chelsy Date Time Electronically viewed and signed by Physician Chlesy on 10/19/2016 22:19 RS/
[2016-10-20] VITALS (7 sets, daily range): BP systolic 91–119; BP diastolic 61–79; PULSE 81–93; RESP 18–21
[2016-10-20] MEDS: HYDROmorphONE 2 MG/ML SYG IV PRN ×7 (04:07→22:05)
[2016-10-20] MEDS: METHADONE (1 MG/1 ML PO SYG) PO SCH ×4 (05:56→23:42)
[2016-10-20] MEDS: PANTOPRAZOLE (EC) 40 MG TAB PO SCH ×2 (07:51→18:36)
--- NOTE | 2016-10-20 11:51 | PN ---
Date/Time of Note Date/Time of Note DATE: 10/20/16 TIME: 11:50 Assessment/Plan VTE Prophylaxis VTE Prophylaxis Intervention: other Lines/Catheters IV Catheter Type (from Nrsg): PICC Line Central line still needed: Yes Urinary Cath still in place: Yes Reason Cath still needed: urinary retention Assessment/Plan Assessment/Plan 1. Clostridium difficile colitis. Contact isolation. Patient is followed by Dr. Schuler group from infectious disease standpoint. Patient is currently on rifaximin and Dificid. 2. Metastatic prostate cancer. Dr. Hernandez is following patient in oncology consultation. Continue chemotherapy and steroids. 3. Thrombocytopenia. Continue to monitor platelets. 4. Acute on chronic back pain. Dr. Ferguson is following the patient in pain management. Continue methadone and Dilaudid p.r.n. for breakthrough pain. 5. Anemia - sp post blood transfusion, continue to monitor hemoglobin and hematocrit. 6. MRSA UTI, - status post treatment Dr Schuler is following in infectious disease consultation. 7. Protein calorie malnutrition, continue Megace, continue high-protein and high-calorie diet. Continue Protonix for peptic ulcer disease prophylaxis. Further recommendations based on clinical course. Plan of care discussed with Dr. Nichols. Subjective 24 Hr Interval Summary Free Text/Dictation No acute distress. Patient is laying in the bed. Seems calm stable. Denies any pain at present. Discussed with the staff. Exam/Review of Systems Vital Signs Vitals Vital Signs Date Time Temp Pulse Resp B/P Pulse Ox O2 Delivery O2 Flow Rate FiO2 10/20/16 08:02 97.8 108 18 119/79 97 10/16/16 22:00 Room Air Intake and Output 10/19/16 10/19/16 10/20/16 15:00 23:00 07:00 Intake Total 1290 ml 1080 ml Output Total 900 ml 2000 ml Balance 390 ml -920 ml Exam Constitutional: alert Head: atraumatic Eyes: EOMI, nl sclera ENMT: nl external ears & nose Neck: non-tender Respiratory: clear to auscultation Cardiovascular: nl pulses Gastrointestinal: non-tender, other (NG tube noted-patient is getting G-tube feedings, tolerated well. No sinus symptoms of aspiration noted.), soft Genitourinary - Male: other (fully catheter noted intact and draining yellow and clear urine) Musculoskeletal: nl extremities to inspection Extremities: normal pulses 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: nl speech, other (alert and awake, follows simple commands. Answer simple questions.) Skin: other Lymph: nontender Results Result Diagram: 10/19/16 1040 10/18/16 0420 Results 24 hrs Laboratory Tests Test 10/20/16 01:05 Stool Occult Blood NEGATIVE Medications Medications Current Medications Bicalutamide (Casodex) 50 mg QAM PO Last administered on 10/19/16 09:21; Admin Dose 50 MG; Start 09/07/16 at 09:00 Docusate Sodium (Colace) 100 mg BID PRN PO CONSTIPATION Last administered on 05:22; Admin Dose 100 MG; Start 09/07/16 at 00:00; Status Future Hold Escitalopram Oxalate (Lexapro) 5 mg DAILY PO Last administered on 10/19/16 09: 10; Admin Dose 5 MG; Start 09/07/16 at 09:00 Megestrol Acetate (Megace Susp) 400 mg BID PO Last administered on 10/19/16 21: 43; Admin Dose 400 MG; Start 09/07/16 at 09:00 Methylnaltrexone [place] (Relistor) 12 mg Q48H SC Last administered on 23:54; Admin Dose 12 MG; Start 09/07/16 at 00:00; Status Future Hold Ondansetron HCl (Zofran Tab) 4 mg Q6H PRN PO NAUSEA AND/OR VOMITING Last administered on 10/19/16 18:17; Admin Dose 4 MG; Start 09/07/16 at 00:00 Acetaminophen (Tylenol Tab) 500 mg Q4H PRN PO PAIN AND OR ELEVATED TEMP Last administered on 10/05/16 15:37; Admin Dose 500 MG; Start 09/07/16 at 21:30 IV Flush (NS 10 ml) 10 ml PRN PRN IV IV PROTOCOL; Start 09/11/16 at 10:00 Calcium/Vitamin D (Oyster Shell/ Vit-D (500/200)) 1 tab BID PO Last administered on 10/19/16 21:43; Admin Dose 1 TAB; Start 09/12/16 at 14:00 IV Flush 10 ml 10 ml PRN PRN IV IV PROTOCOL; Start 09/21/16 at 12:00 Potassium Chloride/Sodium Chloride 1,000 ml @ 70 mls/hr [id number] IV Last administered on 10/19/16 21:41; Admin Dose 70 MLS/HR; Start 09/28/16 at 16:30 Ondansetron HCl/ Sodium Chloride (Zofran Inj/NS) 54 ml @ 216 mls/hr Q12H PRN IV NAUSEA AND/OR VOMITING; Start 09/29/16 at 22:00 Prednisone 5 mg 5 mg BID PO Last administered on 10/19/16 21:43; Admin Dose 5 MG; Start 09/29/16 at 21:00 Docetaxel 45 mg/ Sodium Chloride 100 ml @ 100 mls/hr Th@22 IV Last administered on 10/13/16 22:33; Admin Dose 100 MLS/HR; Start 10/06/16 at 22:00 ; Stop 10/27/16 at 22:59 Ondansetron HCl/ Dexamethasone/ Dextrose (Zofran Inj/ Decadron/D5W) 60 ml @ 252 mls/hr Th@2130 IV Last administered on 10/13/16 21:45; Admin Dose 252 MLS/ HR; Start 10/06/16 at 21:30; Stop 10/27/16 at 21:45 Bisacodyl (Dulcolax Supp) 10 mg DAILY PRN [place] CONSTIPATION Last administered on 10/07/16 03:07; Admin Dose 10 MG; Start 10/07/16 at 03:00 Rifaximin (Xifaxan) 200 mg TID PO Last administered on 10/19/16 21:43; Admin Dose 200 MG; Start 10/16/16 at 21:00; Stop 10/20/16 at 20:59 Fidaxomicin (Dificid) 200 mg BID PO Last administered on 10/19/16 21:43; Admin Dose 200 MG; Start 10/17/16 at 10:30 Hydromorphone HCl (Dilaudid) 2 mg Q3H PRN IV PAIN Last administered on 10:38; Admin Dose 2 MG; Start 10/19/16 at 15:30 Methadone HCl (Methadone Liq (Ped)) 3 mg Q6 PO Last administered on 10/20/16 05 :56; Admin Dose 3 MG; Start 10/19/16 at 18:00 KENDAL BELLO Oct 20, 2016 11:51
[2016-10-20] MEDS: MEGESTROL (40 MG/ML) 10ML CUP PO SCH ×2 (12:44→20:54)
[2016-10-20] MEDS: FIDAXOMICIN 200 MG TABLET PO SCH ×2 (12:44→20:54)
[2016-10-20] MEDS: predniSONE 5 MG TAB PO SCH ×2 (12:44→20:54)
[2016-10-20] MEDS: ESCITALOPRAM 10 MG TAB PO SCH (12:45)
[2016-10-20] MEDS: RIFAXIMIN 200 MG TAB PO SCH ×2 (12:45→13:00)
[2016-10-20] MEDS: CALCIUM/VITAMIN D (500/200) TAB PO SCH ×2 (12:46→20:54)
[2016-10-20] MEDS: BICALUTAMIDE 50 MG TAB PO SCH (12:46)
[2016-10-20] MEDS: NS + KCL 20 MEQ 1,000 ML IV SCH (15:54)
--- NOTE | 2016-10-20 16:57 | PN ---
DATE: 10/20/2016 INFECTIOUS DISEASE PROGRESS NOTE SUBJECTIVE: Patient was started on tube feedings via NG tube. He is lying comfortably in bed. He is afebrile. No labs this morning. DIAGNOSTICS: Chest x-ray revealed clear lung banuelos. mean. ANTIMICROBIALS: 1. Dificid. 2. Rifaximin. INDWELLINGS: White, PICC, NG tube. PHYSICAL EXAMINATION: GENERAL: Cachectic, elderly man, in no distress. HEENT: Head atraumatic, normocephalic. Sclerae anicteric. Buccal mucosa dry. NECK: Supple, trachea midline. CHEST: Chest rise is symmetrical. Breath sounds diminished to the bases. HEART: S1, S2. ABDOMEN: Soft, bowel tones present. EXTREMITIES: Without cyanosis. ASSESSMENT: 1. Clostridium difficile colitis, with persistent diarrhea. So far CMV DNA by PCR was negative. 2. Metastatic prostate carcinoma. 3. Cachexia. 4. Status post methicillin-resistant Staphylococcus aureus urinary tract infection. PLAN: The patient remains stable, followed by gastroenterology and oncology. Continue the present care, antimicrobials, anti-aspiration measures. Dictated By: EUNICE GUNTER [employer] RADIO TECHNICIAN for PINO ROBINS MD NI/NTS Conf#: [id number] DID#: [id number]
--- NOTE | 2016-10-20 18:05 | CONS ---
Date/Time of Note Date/Time of Note DATE: 10/20/16 TIME: 18:04 Assessment/Plan Assessment/Plan Chief Complaint/Hosp Course Metastatic prostate cancer. FAMILY CONFERENCE RE DX, PROGNOSIS AND TREATMENT OPTIONS RE: chemotherapy and steroids - PER PROTOCOL Chemotherapy Docetaxel (Taxotere) 30 mg/m2 IV over 30 minutes once per day on days 1, 8, 15, 22, 29 Prednisone (Sterapred) 5 mg PO BID on days 1 to 42 Supportive medications Dexamethasone (Decadron) 8 mg (route not specified) once 1 hour before Docetaxel (Taxotere) Antiemetics "according to local practice" 42-day cycle for up to 5 cycles ANEMIA POST PRBC MONITOR CLOSELY OBSERVE FOR BLEEDING AND HEMOLYSIS Thrombocytopenia. Continue to monitor platelets. transfuse as needed PANCYTOPENIA MONITOR DECONDITIONING PT Acute on chronic back pain. PAIN CONTROL C DIFF COLITIS ATB PER ID Problems: Consultation Date/Type/Reason Admit Date/Time Sep 06, 2016 at 22:01 Initial Consult Date 09/08/16 Referring Provider: TIMOTHY MARAVILLA MD 24 HR Interval Summary Free Text/Dictation CHEMO TODAY COUNT- OK Exam/Review of Systems Vital Signs Vitals Vital Signs Date Time Temp Pulse Resp B/P Pulse Ox O2 Delivery O2 Flow Rate FiO2 10/20/16 08:02 97.8 108 18 119/79 97 10/16/16 22:00 Room Air Intake and Output 10/19/16 10/19/16 10/20/16 15:00 23:00 07:00 Intake Total 1290 ml 1080 ml Output Total 900 ml 2000 ml Balance 390 ml -920 ml Exam GENERAL: Cachectic, elderly man, in no distress. HEENT: Head atraumatic, normocephalic. Sclerae anicteric. Buccal mucosa dry. NECK: Supple, trachea midline. CHEST: Chest rise is symmetrical. Breath sounds diminished to the bases. HEART: S1, S2. ABDOMEN: Soft, bowel tones present. EXTREMITIES: Without cyanosis. Results Result Diagram: 10/19/16 1040 10/18/16 0420 Results 24 hrs Laboratory Tests Test 10/20/16 01:05 Stool Occult Blood NEGATIVE Medications Medications Current Medications Bicalutamide (Casodex) 50 mg QAM PO Last administered on 10/20/16t 12:46; Admin Dose 50 MG; Start 09/07/16 at 09:00 Docusate Sodium (Colace) 100 mg BID PRN PO CONSTIPATION Last administered on 05:22; Admin Dose 100 MG; Start 09/07/16 at 00:00; Status Future Hold Escitalopram Oxalate (Lexapro) 5 mg DAILY PO Last administered on 10/20/16 12: 45; Admin Dose 5 MG; Start 09/07/16 at 09:00 Megestrol Acetate (Megace Susp) 400 mg BID PO Last administered on 10/20/16 12: 44; Admin Dose 400 MG; Start 09/07/16 at 09:00 Methylnaltrexone [place] (Relistor) 12 mg Q48H SC Last administered on 23:54; Admin Dose 12 MG; Start 09/07/16 at 00:00; Status Future Hold Ondansetron HCl (Zofran Tab) 4 mg Q6H PRN PO NAUSEA AND/OR VOMITING Last administered on 10/19/16 18:17; Admin Dose 4 MG; Start 09/07/16 at 00:00 Acetaminophen (Tylenol Tab) 500 mg Q4H PRN PO PAIN AND OR ELEVATED TEMP Last administered on 10/05/16 15:37; Admin Dose 500 MG; Start 09/07/16 at 21:30 IV Flush (NS 10 ml) 10 ml PRN PRN IV IV PROTOCOL; Start 09/11/16 at 10:00 Calcium/Vitamin D (Oyster Shell/ Vit-D (500/200)) 1 tab BID PO Last administered on 10/20/16 12:46; Admin Dose 1 TAB; Start 09/12/16 at 14:00 IV Flush 10 ml 10 ml PRN PRN IV IV PROTOCOL; Start 09/21/16 at 12:00 Potassium Chloride/Sodium Chloride 1,000 ml @ 70 mls/hr [id number] IV Last administered on 10/20/16 15:54; Admin Dose 70 MLS/HR; Start 09/28/16 at 16:30 Ondansetron HCl/ Sodium Chloride (Zofran Inj/NS) 54 ml @ 216 mls/hr Q12H PRN IV NAUSEA AND/OR VOMITING; Start 09/29/16 at 22:00 Prednisone 5 mg 5 mg BID PO Last administered on 10/20/16 12:44; Admin Dose 5 MG; Start 09/29/16 at 21:00 Docetaxel 45 mg/ Sodium Chloride 100 ml @ 100 mls/hr Th@22 IV Last administered on 10/13/16 22:33; Admin Dose 100 MLS/HR; Start 10/06/16 at 22:00 ; Stop 10/27/16 at 22:59 Ondansetron HCl/ Dexamethasone/ Dextrose (Zofran Inj/ Decadron/D5W) 60 ml @ 252 mls/hr Th@2130 IV Last administered on 10/13/16 21:45; Admin Dose 252 MLS/ HR; Start 10/06/16 at 21:30; Stop 10/27/16 at 21:45 Bisacodyl (Dulcolax Supp) 10 mg DAILY PRN [place] CONSTIPATION Last administered on 10/07/16 03:07; Admin Dose 10 MG; Start 10/07/16 at 03:00 Rifaximin (Xifaxan) 200 mg TID PO Last administered on 10/20/16 12:45; Admin Dose 200 MG; Start 10/16/16 at 21:00; Stop 10/20/16 at 20:59 Fidaxomicin (Dificid) 200 mg BID PO Last administered on 10/20/16 12:44; Admin Dose 200 MG; Start 10/17/16 at 10:30 Hydromorphone HCl (Dilaudid) 2 mg Q3H PRN IV PAIN Last administered on 15:50; Admin Dose 2 MG; Start 10/19/16 at 15:30 Methadone HCl (Methadone Liq (Ped)) 3 mg Q6 PO Last administered on 10/20/16 13 :39; Admin Dose 3 MG; Start 10/19/16 at 18:00 JARAD CHOI MD Oct 20, 2016 18:05
--- NOTE | 2016-10-20 21:00 | CONS ---
Date/Time of Note Date/Time of Note DATE: 10/20/16 TIME: 20:58 Assessment/Plan Assessment/Plan Additional Assessment/Plan Impression: 1. Clostridium difficile colitis. 2. Abdominal pain: worsening, associated with nausea and vomiting. ddx include C. Diff colitis vs side effects from chemotherapy vs gastritis, duodenitis, esophagitis. 3. anemia 4. Metastatic prostate cancer. Dr. Hernandez is following patient in oncology consultation. Continue chemotherapy and steroids. 5. MRSA 6. Abnormal alkaline po4 secondary to jose mets. 7.diarrhea secondary to C.Difficile Recommendations: 1. Continue vancomycin for C. Diff. Consider fidaxomicin per ID. 2. f/uCMV PCR as pt is immunosuppressed and to r/o possible CMV colitis/ enteritis as cause of diarrhea 3. continue pain control 4. ordered occult stool blood negative 5. abx per ID 6. d/c Protonix ,it will aggravate 7. continue other supportive care per pcp and other consultants 8.[place] 9,enteral feeding Consultation Date/Type/Reason Admit Date/Time Sep 06, 2016 at 22:01 Initial Consult Date 09/08/16 Referring Provider: TIMOTHY MARAVILLA MD 24 HR Interval Summary Free Text/Dictation pain Exam/Review of Systems Vital Signs Vitals Vital Signs Date Time Temp Pulse Resp B/P Pulse Ox O2 Delivery O2 Flow Rate FiO2 10/20/16 19:54 98.7 100 21 110/71 100 10/16/16 22:00 Room Air Intake and Output 10/19/16 10/19/16 10/20/16 15:00 23:00 07:00 Intake Total 1290 ml 1080 ml Output Total 900 ml 2000 ml Balance 390 ml -920 ml Exam Constitutional: alert, oriented, well developed Psych: nl mood/affect, no complaints Head: atraumatic, normocephalic Eyes: EOMI, PERRL, nl conjunctiva, nl lids, nl sclera ENMT: nl external ears & nose, nl lips & teeth, nl nasal mucosa & septum Neck: non-tender, supple Respiratory: clear to auscultation, normal air movement Cardiovascular: nl pulses, regular rate and rhythm Gastrointestinal: nl liver, spleen, non-tender, soft Musculoskeletal: nl extremities to inspection, nl gait and stance Extremities: normal pulses 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, nl mental status, nl speech, nl strength Skin: nl turgor, No rash or lesions Lymph: nl lymph nodes Results Result Diagram: 10/19/16 1040 10/18/16 0420 Results 24 hrs Laboratory Tests Test 10/20/16 01:05 Stool Occult Blood NEGATIVE Medications Medications Current Medications Bicalutamide (Casodex) 50 mg QAM PO Last administered on 10/20/16 12:46; Admin Dose 50 MG; Start 09/07/16 at 09:00 Docusate Sodium (Colace) 100 mg BID PRN PO CONSTIPATION Last administered on 05:22; Admin Dose 100 MG; Start 09/07/16 at 00:00; Status Future Hold Escitalopram Oxalate (Lexapro) 5 mg DAILY PO Last administered on 10/20/16 12: 45; Admin Dose 5 MG; Start 09/07/16 at 09:00 Megestrol Acetate (Megace Susp) 400 mg BID PO Last administered on 10/20/16 20: 54; Admin Dose 400 MG; Start 09/07/16 at 09:00 Methylnaltrexone [place] (Relistor) 12 mg Q48H SC Last administered on 23:54; Admin Dose 12 MG; Start 09/07/16 at 00:00; Status Future Hold Ondansetron HCl (Zofran Tab) 4 mg Q6H PRN PO NAUSEA AND/OR VOMITING Last administered on 10/19/16 18:17; Admin Dose 4 MG; Start 09/07/16 at 00:00 Acetaminophen (Tylenol Tab) 500 mg Q4H PRN PO PAIN AND OR ELEVATED TEMP Last administered on 10/05/16 15:37; Admin Dose 500 MG; Start 09/07/16 at 21:30 IV Flush (NS 10 ml) 10 ml PRN PRN IV IV PROTOCOL; Start 09/11/16 at 10:00 Calcium/Vitamin D (Oyster Shell/ Vit-D (500/200)) 1 tab BID PO Last administered on 10/20/16 20:54; Admin Dose 1 TAB; Start 09/12/16 at 14:00 IV Flush 10 ml 10 ml PRN PRN IV IV PROTOCOL; Start 09/21/16 at 12:00 Potassium Chloride/Sodium Chloride 1,000 ml @ 70 mls/hr [id number] IV Last administered on 10/20/16 15:54; Admin Dose 70 MLS/HR; Start 09/28/16 at 16:30 Ondansetron HCl/ Sodium Chloride (Zofran Inj/NS) 54 ml @ 216 mls/hr Q12H PRN IV NAUSEA AND/OR VOMITING; Start 09/29/16 at 22:00 Prednisone 5 mg 5 mg BID PO Last administered on 10/20/16 20:54; Admin Dose 5 MG; Start 09/29/16 at 21:00 Docetaxel 45 mg/ Sodium Chloride 100 ml @ 100 mls/hr Th@22 IV Last administered on 10/13/16 22:33; Admin Dose 100 MLS/HR; Start 10/06/16 at 22:00 ; Stop 10/27/16 at 22:59 Ondansetron HCl/ Dexamethasone/ Dextrose (Zofran Inj/ Decadron/D5W) 60 ml @ 252 mls/hr Th@2130 IV Last administered on 10/13/16 21:45; Admin Dose 252 MLS/ HR; Start 10/06/16 at 21:30; Stop 10/27/16 at 21:45 Bisacodyl (Dulcolax Supp) 10 mg DAILY PRN [place] CONSTIPATION Last administered on 10/07/16 03:07; Admin Dose 10 MG; Start 10/07/16 at 03:00 Rifaximin (Xifaxan) 200 mg TID PO Last administered on 10/20/16 12:45; Admin Dose 200 MG; Start 10/16/16 at 21:00; Stop 10/20/16 at 20:59 Fidaxomicin (Dificid) 200 mg BID PO Last administered on 10/20/16 20:54; Admin Dose 200 MG; Start 10/17/16 at 10:30 Hydromorphone HCl (Dilaudid) 2 mg Q3H PRN IV PAIN Last administered on 18:37; Admin Dose 2 MG; Start 10/19/16 at 15:30 Methadone HCl (Methadone Liq (Ped)) 3 mg Q6 PO Last administered on 10/20/16 18 :32; Admin Dose 3 MG; Start 10/19/16 at 18:00 MICHAEL COELHO MD Oct 20, 2016 21:00
[2016-10-20] MEDS: ONDANSETRON IV SCH (21:26)
[2016-10-20] MEDS: DEXTROSE 5% IV SCH (21:26)
[2016-10-20] MEDS: DEXAMETHASONE IV SCH (21:26)
[2016-10-20] MEDS: SOD CHLORIDE 0.9% IV SCH (22:12)
[2016-10-20] MEDS: DOCETAXEL IV SCH (22:12)
[2016-10-21 05:12] LABS: CREATININE 0.3 mg/dl (0.61-1.24)
[2016-10-21 05:13] LABS: CALCIUM 7.1 mg/dl (8.4-10.2)
[2016-10-21 05:14] LABS: HEMATOCRIT 32.5 % (42.0-52.0); HEMOGLOBIN 11.3 g/dl (14.0-18.0); MEAN CORPUSCULAR HEMOGLOBIN 29.6 pg (29.0-33.0); MEAN CORPUSCULAR HGB CONC 34.7 g/dl (32.0-37.0); MEAN CORPUSCULAR VOLUME 85.2 fl (82.0-101.0); MEAN PLATELET VOLUME 7.8 fl (7.4-10.4); PLATELET COUNT 80 10^3/UL (140-440); RED BLOOD COUNT 3.81 10^6/ul (4.70-6.10); RED CELL DISTRIBUTION WIDTH 15.4 % (11.5-14.5)
[2016-10-21] MEDS: METHADONE (1 MG/1 ML PO SYG) PO SCH ×3 (05:30→18:36)
[2016-10-21 06:23] LABS: CONDITION 1; LH ANALYZER COMMENTS 1; SUSPECT 1
[2016-10-21 07:00] VITALS: BP 108/67; RESP 18
[2016-10-21] MEDS: PANTOPRAZOLE (EC) 40 MG TAB PO SCH (07:20)
[2016-10-21] MEDS: NS + KCL 20 MEQ 1,000 ML IV SCH ×2 (07:50→22:41)
[2016-10-21] MEDS: HYDROmorphONE 2 MG/ML SYG IV PRN ×4 (07:50→21:20)
[2016-10-21] MEDS: MEGESTROL (40 MG/ML) 10ML CUP PO SCH ×2 (09:25→21:25)
[2016-10-21] MEDS: predniSONE 5 MG TAB PO SCH ×2 (09:26→21:25)
[2016-10-21] MEDS: CALCIUM/VITAMIN D (500/200) TAB PO SCH ×2 (09:26→21:25)
[2016-10-21] MEDS: ESCITALOPRAM 10 MG TAB PO SCH (09:26)
[2016-10-21] MEDS: FIDAXOMICIN 200 MG TABLET PO SCH ×2 (09:26→21:24)
[2016-10-21] MEDS: LANSOPRAZOLE 30 MG CAP PO SCH (09:30)
[2016-10-21] MEDS: BICALUTAMIDE 50 MG TAB PO SCH (09:47)
[2016-10-21 10:13] LABS: LYMPHOCYTES # 1.1 10^3/ul (0.8-2.9); MONOCYTE # 0.6 10^3/ul (0.3-0.9)
--- NOTE | 2016-10-21 11:14 | CONS ---
Date/Time of Note Date/Time of Note DATE: 10/21/16 TIME: 11:14 Assessment/Plan Assessment/Plan Chief Complaint/Hosp Course Metastatic prostate cancer. FAMILY CONFERENCE RE DX, PROGNOSIS AND TREATMENT OPTIONS RE: chemotherapy and steroids - PER PROTOCOL Chemotherapy Docetaxel (Taxotere) 30 mg/m2 IV over 30 minutes once per day on days 1, 8, 15, 22, 29 Prednisone (Sterapred) 5 mg PO BID on days 1 to 42 Supportive medications Dexamethasone (Decadron) 8 mg (route not specified) once 1 hour before Docetaxel (Taxotere) Antiemetics "according to local practice" 42-day cycle for up to 5 cycles ANEMIA POST PRBC MONITOR CLOSELY OBSERVE FOR BLEEDING AND HEMOLYSIS Thrombocytopenia. Continue to monitor platelets. transfuse as needed PANCYTOPENIA MONITOR DECONDITIONING PT Acute on chronic back pain. PAIN CONTROL C DIFF COLITIS ATB PER ID Problems: Consultation Date/Type/Reason Admit Date/Time Sep 06, 2016 at 22:01 Initial Consult Date 09/08/16 Referring Provider: TIMOTHY MARAVILLA MD 24 HR Interval Summary Free Text/Dictation ALL NOTED POST CHEMO ON OCT 20 Exam/Review of Systems Vital Signs Vitals Vital Signs Date Time Temp Pulse Resp B/P Pulse Ox O2 Delivery O2 Flow Rate FiO2 10/21/16 07:00 97.5 81 18 108/67 97 10/20/16 23:50 Room Air Intake and Output 10/20/16 10/20/16 10/21/16 15:00 23:00 07:00 Intake Total 1020 ml 560 ml Output Total 800 ml 1000 ml Balance 220 ml -440 ml Exam GENERAL: Cachectic, elderly man, in no distress. HEENT: Head atraumatic, normocephalic. Sclerae anicteric. Buccal mucosa dry. NECK: Supple, trachea midline. CHEST: Chest rise is symmetrical. Breath sounds diminished to the bases. HEART: S1, S2. ABDOMEN: Soft, bowel tones present. EXTREMITIES: Without cyanosis. Results Result Diagram: 10/21/16 0425 10/21/16 0425 Results 24 hrs Laboratory Tests Test 10/21/16 04:25 Anion Gap 11 Basophils # Basophils % Blood Morphology Comment Blood Urea Nitrogen 5 L Calcium Level 7.1 L Carbon Dioxide Level 24 Chloride Level 103 Creatinine 0.30 L Eosinophils # Eosinophils % Glucose Level 163 Hematocrit 32.5 L Hemoglobin 11.3 L Lymphocytes # 1.1 Lymphocytes % 27.0 Mean Corpuscular Hemoglobin 29.6 Mean Corpuscular Hemoglobin Concent 34.7 Mean Corpuscular Volume 85.2 Mean Platelet Volume 7.8 Monocytes # 0.6 Monocytes % 14.0 H Neutrophils # 2.0 Neutrophils % 50.0 Nucleated Red Blood Cells # Nucleated Red Blood Cells % 1.0 H Platelet Count 80 L Potassium Level 4.0 Red Blood Count 3.81 L Red Cell Distribution Width 15.4 H Sodium Level 134 L White Blood Count 4.0 #L Medications Medications Current Medications Bicalutamide (Casodex) 50 mg QAM PO Last administered on 10/21/16 09:47; Admin Dose 50 MG; Start 09/07/16 at 09:00 Docusate Sodium (Colace) 100 mg BID PRN PO CONSTIPATION Last administered on 05:22; Admin Dose 100 MG; Start 09/07/16 at 00:00; Status Future Hold Escitalopram Oxalate (Lexapro) 5 mg DAILY PO Last administered on 10/21/16 09: 26; Admin Dose 5 MG; Start 09/07/16 at 09:00 Megestrol Acetate (Megace Susp) 400 mg BID PO Last administered on 10/21/16 09: 25; Admin Dose 400 MG; Start 09/07/16 at 09:00 Methylnaltrexone [place] (Relistor) 12 mg Q48H SC Last administered on 23:54; Admin Dose 12 MG; Start 09/07/16 at 00:00; Status Future Hold Ondansetron HCl (Zofran Tab) 4 mg Q6H PRN PO NAUSEA AND/OR VOMITING Last administered on 10/19/16 18:17; Admin Dose 4 MG; Start 09/07/16 at 00:00 Acetaminophen (Tylenol Tab) 500 mg Q4H PRN PO PAIN AND OR ELEVATED TEMP Last administered on 10/05/16 15:37; Admin Dose 500 MG; Start 09/07/16 at 21:30 IV Flush (NS 10 ml) 10 ml PRN PRN IV IV PROTOCOL; Start 09/11/16 at 10:00 Calcium/Vitamin D (Oyster Shell/ Vit-D (500/200)) 1 tab BID PO Last administered on 10/21/16 09:26; Admin Dose 1 TAB; Start 09/12/16 at 14:00 IV Flush 10 ml 10 ml PRN PRN IV IV PROTOCOL; Start 09/21/16 at 12:00 Potassium Chloride/Sodium Chloride 1,000 ml @ 70 mls/hr [id number] IV Last administered on 10/21/16 07:50; Admin Dose 70 MLS/HR; Start 09/28/16 at 16:30 Ondansetron HCl/ Sodium Chloride (Zofran Inj/NS) 54 ml @ 216 mls/hr Q12H PRN IV NAUSEA AND/OR VOMITING; Start 09/29/16 at 22:00 Prednisone 5 mg 5 mg BID PO Last administered on 10/21/16 09:26; Admin Dose 5 MG; Start 09/29/16 at 21:00 Docetaxel 45 mg/ Sodium Chloride 100 ml @ 100 mls/hr Th@22 IV Last administered on 10/20/16 22:12; Admin Dose 100 MLS/HR; Start 10/06/16 at 22:00; Stop 10/27/16 at 22:59 Ondansetron HCl/ Dexamethasone/ Dextrose (Zofran Inj/ Decadron/D5W) 60 ml @ 252 mls/hr Th@2130 IV Last administered on 10/20/16 21:26; Admin Dose 252 MLS/ HR; Start 10/06/16 at 21:30; Stop 10/27/16 at 21:45 Bisacodyl (Dulcolax Supp) 10 mg DAILY PRN [place] CONSTIPATION Last administered on 10/07/16 03:07; Admin Dose 10 MG; Start 10/07/16 at 03:00 Fidaxomicin (Dificid) 200 mg BID PO Last administered on 10/21/16 09:26; Admin Dose 200 MG; Start 10/17/16 at 10:30 Hydromorphone HCl (Dilaudid) 2 mg Q3H PRN IV PAIN Last administered on 07:50; Admin Dose 2 MG; Start 10/19/16 at 15:30 Methadone HCl (Methadone Liq (Ped)) 3 mg Q6 PO Last administered on 10/21/16 05 :30; Admin Dose 3 MG; Start 10/19/16 at 18:00 Lansoprazole (Prevacid) 30 mg DAILY@06 PO ; Start 10/21/16 at 09:30 JARAD CHOI MD Oct 21, 2016 11:14
--- NOTE | 2016-10-21 13:13 | PN ---
Date/Time of Note Date/Time of Note DATE: 10/21/16 TIME: 13:07 Assessment/Plan VTE Prophylaxis VTE Prophylaxis Intervention: SCD's Lines/Catheters IV Catheter Type (from Nrs): PICC Line Central line still needed: Yes Urinary Cath still in place: Yes Reason Cath still needed: urinary retention Assessment/Plan Chief Complaint/Hosp Course ASSESSMENT AND PLAN: 1. Clostridium difficile colitis. Contact isolation. Patient is followed by Dr. Harini rosas from infectious disease standpoint. Patient is currently on rifaximin and Dificid. 2. Metastatic prostate cancer. Dr. Hernandez is following patient in oncology consultation. Continue chemotherapy and steroids. 3. Thrombocytopenia. Continue to monitor platelets. 4. Acute on chronic back pain. Dr. Ferguson is following the patient in pain management. Continue methadone and Dilaudid p.r.n. for breakthrough pain. 5. Anemia, this post blood transfusion, continue to monitor hemoglobin and hematocrit. 6. MRSA UTI, status post treatment 7. Protein calorie malnutrition, continue Megace, continue high-protein and high-calorie diet, continue tube feeding via NG tube. Continue Protonix for peptic ulcer disease prophylaxis. Further recommendations based on clinical course. Plan of care discussed with Dr. Nichols. Problems: Subjective 24 Hr Interval Summary Free Text/Dictation Patient tolerates NG tube feeding well, status post chemo last night, no fever no nausea vomiting. Exam/Review of Systems Vital Signs Vitals Vital Signs Date Time Temp Pulse Resp B/P Pulse Ox O2 Delivery O2 Flow Rate FiO2 10/21/16 07:00 97.5 81 18 108/67 97 10/20/16 23:50 Room Air Intake and Output 10/20/16 10/20/16 10/21/16 14:59 22:59 06:59 Intake Total 1020 ml 560 ml Output Total 800 ml 1000 ml Balance 220 ml -440 ml Exam GENERAL: Well-developed, cachectic male, currently is awake, alert. HEENT: Head is atraumatic, normocephalic. PERRLA. NECK: Supple. No mass, no thyromegaly. LUNGS: Clear bilaterally. No rhonchi, wheezes, rales noted. HEART: Normal S1, S2. No murmurs, gallops, clicks, rubs noted. ABDOMEN: Flat, soft, nondistended, nontender. Bowel sounds present. EXTREMITIES: No edema. SKIN: There is no rash, petechiae noted. NEUROLOGIC: The patient is awake, alert, and oriented x3. Results Result Diagram: 10/21/1642410/21/16424 Results 24 hrs Laboratory Tests Test 10/21/16 04:25 Anion Gap 11 Basophils # Basophils % Blood Morphology Comment Blood Urea Nitrogen 5 L Calcium Level 7.1 L Carbon Dioxide Level 24 Chloride Level 103 Creatinine 0.30 L Eosinophils # Eosinophils % Glucose Level 163 Hematocrit 32.5 L Hemoglobin 11.3 L Lymphocytes # 1.1 Lymphocytes % 27.0 Mean Corpuscular Hemoglobin 29.6 Mean Corpuscular Hemoglobin Concent 34.7 Mean Corpuscular Volume 85.2 Mean Platelet Volume 7.8 Monocytes # 0.6 Monocytes % 14.0 H Neutrophils # 2.0 Neutrophils % 50.0 Nucleated Red Blood Cells # Nucleated Red Blood Cells % 1.0 H Platelet Count 80 L Potassium Level 4.0 Red Blood Count 3.81 L Red Cell Distribution Width 15.4 H Sodium Level 134 L White Blood Count 4.0 #L Medications Medications Current Medications Bicalutamide (Casodex) 50 mg QAM PO Last administered on 10/21/16 09:47; Admin Dose 50 MG; Start 09/07/16 at 09:00 Docusate Sodium (Colace) 100 mg BID PRN PO CONSTIPATION Last administered on 05:22; Admin Dose 100 MG; Start 09/07/16 at 00:00; Status Future Hold Escitalopram Oxalate (Lexapro) 5 mg DAILY PO Last administered on 10/21/16 09: 26; Admin Dose 5 MG; Start 09/07/16 at 09:00 Megestrol Acetate (Megace Susp) 400 mg BID PO Last administered on 10/21/16 09: 25; Admin Dose 400 MG; Start 09/07/16 at 09:00 Methylnaltrexone [place] (Relistor) 12 mg Q48H SC Last administered on 23:54; Admin Dose 12 MG; Start 09/07/16 at 00:00; Status Future Hold Ondansetron HCl (Zofran Tab) 4 mg Q6H PRN PO NAUSEA AND/OR VOMITING Last administered on 10/19/16 18:17; Admin Dose 4 MG; Start 09/07/16 at 00:00 Acetaminophen (Tylenol Tab) 500 mg Q4H PRN PO PAIN AND OR ELEVATED TEMP Last administered on 10/05/16 15:37; Admin Dose 500 MG; Start 09/07/16 at 21:30 IV Flush (NS 10 ml) 10 ml PRN PRN IV IV PROTOCOL; Start 09/11/16 at 10:00 Calcium/Vitamin D (Oyster Shell/ Vit-D (500/200)) 1 tab BID PO Last administered on 10/21/16 09:26; Admin Dose 1 TAB; Start 09/12/16 at 14:00 IV Flush 10 ml 10 ml PRN PRN IV IV PROTOCOL; Start 09/21/16 at 12:00 Potassium Chloride/Sodium Chloride 1,000 ml @ 70 mls/hr [id number] IV Last administered on 10/21/16 07:50; Admin Dose 70 MLS/HR; Start 09/28/16 at 16:30 Ondansetron HCl/ Sodium Chloride (Zofran Inj/NS) 54 ml @ 216 mls/hr Q12H PRN IV NAUSEA AND/OR VOMITING; Start 09/29/16 at 22:00 Prednisone 5 mg 5 mg BID PO Last administered on 10/21/16 09:26; Admin Dose 5 MG; Start 09/29/16 at 21:00 Docetaxel 45 mg/ Sodium Chloride 100 ml @ 100 mls/hr Th@22 IV Last administered on 10/20/16 22:12; Admin Dose 100 MLS/HR; Start 10/06/16 at 22:00; Stop 10/27/16 at 22:59 Ondansetron HCl/ Dexamethasone/ Dextrose (Zofran Inj/ Decadron/D5W) 60 ml @ 252 mls/hr Th@2130 IV Last administered on 10/20/16 21:26; Admin Dose 252 MLS/ HR; Start 10/06/16 at 21:30; Stop 10/27/16 at 21:45 Bisacodyl (Dulcolax Supp) 10 mg DAILY PRN [place] CONSTIPATION Last administered on 10/07/16 03:07; Admin Dose 10 MG; Start 10/07/16 at 03:00 Fidaxomicin (Dificid) 200 mg BID PO Last administered on 10/21/16 09:26; Admin Dose 200 MG; Start 10/17/16 at 10:30 Hydromorphone HCl (Dilaudid) 2 mg Q3H PRN IV PAIN Last administered on 07:50; Admin Dose 2 MG; Start 10/19/16 at 15:30 Methadone HCl (Methadone Liq (Ped)) 3 mg Q6 PO Last administered on 10/21/16 05 :30; Admin Dose 3 MG; Start 10/19/16 at 18:00 Lansoprazole (Prevacid) 30 mg DAILY@06 PO ; Start 10/21/16 at 09:30 SREE GRIFFITH Oct 21, 2016 13:13
--- NOTE | 2016-10-21 13:59 | CONS ---
Date/Time of Note Date/Time of Note DATE: 10/21/16 TIME: 13:57 Assessment/Plan Assessment/Plan Chief Complaint/Hosp Course SUBJECTIVE: No acute events, awake, c/o pain, no fevers, nad ANTIMICROBIALS: 1. Dificid. INDWELLINGS: White, PICC, NG tube. PHYSICAL EXAMINATION: GENERAL: Cachectic, elderly man, in no distress. HEENT: Head atraumatic, normocephalic. Sclerae anicteric. Buccal mucosa dry. NECK: Supple, trachea midline. CHEST: Chest rise is symmetrical. Breath sounds diminished to the bases. HEART: S1, S2. ABDOMEN: Soft, bowel tones present. EXTREMITIES: Without cyanosis. ASSESSMENT: 1. Clostridium difficile colitis. So far CMV DNA by PCR was negative. 2. Metastatic prostate carcinoma. 3. Cachexia. 4. Status post methicillin-resistant Staphylococcus aureus urinary tract infection. PLAN: The patient remains stable, followed by gastroenterology and oncology, diarrhea resolving. Continue the present care, antimicrobials, anti-aspiration measures. DW staff Problems: Consultation Date/Type/Reason Admit Date/Time Sep 06, 2016 at 22:01 Initial Consult Date 09/08/16 Type of Consultation: id Referring Provider: TIMOTHY MARAVILLA MD Exam/Review of Systems Vital Signs Vitals Vital Signs Date Time Temp Pulse Resp B/P Pulse Ox O2 Delivery O2 Flow Rate FiO2 10/21/16 07:00 97.5 81 18 108/67 97 10/20/16 23:50 Room Air Intake and Output 10/20/16 10/20/16 10/21/16 15:00 23:00 07:00 Intake Total 1020 ml 560 ml Output Total 800 ml 1000 ml Balance 220 ml -440 ml Results Result Diagram: 10/21/16 0425 10/21/16 0425 Results 24 hrs Laboratory Tests Test 10/21/16 04:25 Anion Gap 11 Basophils # Basophils % Blood Morphology Comment Blood Urea Nitrogen 5 L Calcium Level 7.1 L Carbon Dioxide Level 24 Chloride Level 103 Creatinine 0.30 L Eosinophils # Eosinophils % Glucose Level 163 Hematocrit 32.5 L Hemoglobin 11.3 L Lymphocytes # 1.1 Lymphocytes % 27.0 Mean Corpuscular Hemoglobin 29.6 Mean Corpuscular Hemoglobin Concent 34.7 Mean Corpuscular Volume 85.2 Mean Platelet Volume 7.8 Monocytes # 0.6 Monocytes % 14.0 H Neutrophils # 2.0 Neutrophils % 50.0 Nucleated Red Blood Cells # Nucleated Red Blood Cells % 1.0 H Platelet Count 80 L Potassium Level 4.0 Red Blood Count 3.81 L Red Cell Distribution Width 15.4 H Sodium Level 134 L White Blood Count 4.0 #L Medications Medications Current Medications Bicalutamide (Casodex) 50 mg QAM PO Last administered on 10/21/16 09:47; Admin Dose 50 MG; Start 09/07/16 at 09:00 Docusate Sodium (Colace) 100 mg BID PRN PO CONSTIPATION Last administered on 05:22; Admin Dose 100 MG; Start 09/07/16 at 00:00; Status Future Hold Escitalopram Oxalate (Lexapro) 5 mg DAILY PO Last administered on 10/21/16 09: 26; Admin Dose 5 MG; Start 09/07/16 at 09:00 Megestrol Acetate (Megace Susp) 400 mg BID PO Last administered on 10/21/16 09: 25; Admin Dose 400 MG; Start 09/07/16 at 09:00 Methylnaltrexone [place] (Relistor) 12 mg Q48H SC Last administered on 23:54; Admin Dose 12 MG; Start 09/07/16 at 00:00; Status Future Hold Ondansetron HCl (Zofran Tab) 4 mg Q6H PRN PO NAUSEA AND/OR VOMITING Last administered on 10/19/16 18:17; Admin Dose 4 MG; Start 09/07/16 at 00:00 Acetaminophen (Tylenol Tab) 500 mg Q4H PRN PO PAIN AND OR ELEVATED TEMP Last administered on 10/05/16 15:37; Admin Dose 500 MG; Start 09/07/16 at 21:30 IV Flush (NS 10 ml) 10 ml PRN PRN IV IV PROTOCOL; Start 09/11/16 at 10:00 Calcium/Vitamin D (Oyster Shell/ Vit-D (500/200)) 1 tab BID PO Last administered on 10/21/16 09:26; Admin Dose 1 TAB; Start 09/12/16 at 14:00 IV Flush 10 ml 10 ml PRN PRN IV IV PROTOCOL; Start 09/21/16 at 12:00 Potassium Chloride/Sodium Chloride 1,000 ml @ 70 mls/hr [id number] IV Last administered on 10/21/16 07:50; Admin Dose 70 MLS/HR; Start 09/28/16 at 16:30 Ondansetron HCl/ Sodium Chloride (Zofran Inj/NS) 54 ml @ 216 mls/hr Q12H PRN IV NAUSEA AND/OR VOMITING; Start 09/29/16 at 22:00 Prednisone 5 mg 5 mg BID PO Last administered on 10/21/16 09:26; Admin Dose 5 MG; Start 09/29/16 at 21:00 Docetaxel 45 mg/ Sodium Chloride 100 ml @ 100 mls/hr Th@22 IV Last administered on 10/20/16 22:12; Admin Dose 100 MLS/HR; Start 10/06/16 at 22:00; Stop 10/27/16 at 22:59 Ondansetron HCl/ Dexamethasone/ Dextrose (Zofran Inj/ Decadron/D5W) 60 ml @ 252 mls/hr Th@2130 IV Last administered on 10/20/16 21:26; Admin Dose 252 MLS/ HR; Start 10/06/16 at 21:30; Stop 10/27/16 at 21:45 Bisacodyl (Dulcolax Supp) 10 mg DAILY PRN [place] CONSTIPATION Last administered on 10/07/16 03:07; Admin Dose 10 MG; Start 10/07/16 at 03:00 Fidaxomicin (Dificid) 200 mg BID PO Last administered on 10/21/16 09:26; Admin Dose 200 MG; Start 10/17/16 at 10:30 Hydromorphone HCl (Dilaudid) 2 mg Q3H PRN IV PAIN Last administered on 13:35; Admin Dose 2 MG; Start 10/19/16 at 15:30 Methadone HCl (Methadone Liq (Ped)) 3 mg Q6 PO Last administered on 10/21/16 13 :11; Admin Dose 3 MG; Start 10/19/16 at 18:00 Lansoprazole (Prevacid) 30 mg DAILY@06 PO ; Start 10/21/16 at 09:30 EUNICE GUNTER NP Oct 21, 2016 13:59
--- NOTE | 2016-10-21 20:31 | CONS ---
Date/Time of Note Date/Time of Note DATE: 10/21/16 TIME: 20:30 Assessment/Plan Assessment/Plan Additional Assessment/Plan Additional Assessment/Plan Impression: 1. Clostridium difficile colitis. 2. Abdominal pain: worsening, associated with nausea and vomiting. ddx include C. Diff colitis vs side effects from chemotherapy vs gastritis, duodenitis, esophagitis. 3. anemia 4. Metastatic prostate cancer. Dr. Hernandez is following patient in oncology consultation. Continue chemotherapy and steroids. 5. MRSA 6. Abnormal alkaline po4 secondary to jose mets. 7.diarrhea secondary to C.Difficile,better Recommendations: 1. Continue vancomycin for C. Diff. Consider fidaxomicin per ID. 2. f/uCMV PCR as pt is immunosuppressed and to r/o possible CMV colitis/ enteritis as cause of diarrhea 3. continue pain control 4. ordered occult stool blood negative 5. abx per ID 6. d/c Protonix ,it will aggravate 7. continue other supportive care per pcp and other consultants 8.Bi 9,enteral feeding Consultation Date/Type/Reason Admit Date/Time Sep 06, 2016 at 22:01 Initial Consult Date 09/08/16 Type of Consultation: id Referring Provider: TIMOTHY MARAVILLA MD 24 HR Interval Summary Constitutional: improved Exam/Review of Systems Vital Signs Vitals Vital Signs Date Time Temp Pulse Resp B/P Pulse Ox O2 Delivery O2 Flow Rate FiO2 10/21/16 07:00 97.5 81 18 108/67 97 10/20/16 23:50 Room Air Intake and Output 10/20/16 10/20/16 10/21/16 15:00 23:00 07:00 Intake Total 1020 ml 560 ml Output Total 800 ml 1000 ml Balance 220 ml -440 ml Exam Constitutional: alert, oriented, well developed Psych: nl mood/affect, no complaints Head: atraumatic, normocephalic Eyes: EOMI, PERRL, nl conjunctiva, nl lids, nl sclera ENMT: nl external ears & nose, nl lips & teeth, nl nasal mucosa & septum Neck: non-tender, supple Respiratory: clear to auscultation, normal air movement Cardiovascular: nl pulses, regular rate and rhythm Gastrointestinal: nl liver, spleen, non-tender, soft Musculoskeletal: nl extremities to inspection, nl gait and stance Extremities: normal pulses 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: GLASS ARTIST II-XII intact, nl mental status, nl speech, nl strength Skin: nl turgor, No rash or lesions Lymph: nl lymph nodes Results Result Diagram: 10/21/1642410/21/16424 Results 24 hrs Laboratory Tests Test 10/21/16 04:25 Anion Gap 11 Basophils # Basophils % Blood Morphology Comment Blood Urea Nitrogen 5 L Calcium Level 7.1 L Carbon Dioxide Level 24 Chloride Level 103 Creatinine 0.30 L Eosinophils # Eosinophils % Glucose Level 163 Hematocrit 32.5 L Hemoglobin 11.3 L Lymphocytes # 1.1 Lymphocytes % 27.0 Mean Corpuscular Hemoglobin 29.6 Mean Corpuscular Hemoglobin Concent 34.7 Mean Corpuscular Volume 85.2 Mean Platelet Volume 7.8 Monocytes # 0.6 Monocytes % 14.0 H Neutrophils # 2.0 Neutrophils % 50.0 Nucleated Red Blood Cells # Nucleated Red Blood Cells % 1.0 H Platelet Count 80 L Potassium Level 4.0 Red Blood Count 3.81 L Red Cell Distribution Width 15.4 H Sodium Level 134 L White Blood Count 4.0 #L Medications Medications Current Medications Bicalutamide (Casodex) 50 mg QAM PO Last administered on 10/21/16 09:47; Admin Dose 50 MG; Start 09/07/16 at 09:00 Docusate Sodium (Colace) 100 mg BID PRN PO CONSTIPATION Last administered on 05:22; Admin Dose 100 MG; Start 09/07/16 at 00:00; Status Future Hold Escitalopram Oxalate (Lexapro) 5 mg DAILY PO Last administered on 10/21/16 09: 26; Admin Dose 5 MG; Start 09/07/16 at 09:00 Megestrol Acetate (Megace Susp) 400 mg BID PO Last administered on 10/21/16 09: 25; Admin Dose 400 MG; Start 09/07/16 at 09:00 Methylnaltrexone [place] (Relistor) 12 mg Q48H SC Last administered on 23:54; Admin Dose 12 MG; Start 09/07/16 at 00:00; Status Future Hold Ondansetron HCl (Zofran Tab) 4 mg Q6H PRN PO NAUSEA AND/OR VOMITING Last administered on 10/19/16 18:17; Admin Dose 4 MG; Start 09/07/16 at 00:00 Acetaminophen (Tylenol Tab) 500 mg Q4H PRN PO PAIN AND OR ELEVATED TEMP Last administered on 10/05/16 15:37; Admin Dose 500 MG; Start 09/07/16 at 21:30 IV Flush (NS 10 ml) 10 ml PRN PRN IV IV PROTOCOL; Start 09/11/16 at 10:00 Calcium/Vitamin D (Oyster Shell/ Vit-D (500/200)) 1 tab BID PO Last administered on 10/21/16 09:26; Admin Dose 1 TAB; Start 09/12/16 at 14:00 IV Flush 10 ml 10 ml PRN PRN IV IV PROTOCOL; Start 09/21/16 at 12:00 Potassium Chloride/Sodium Chloride 1,000 ml @ 70 mls/hr [id number] IV Last administered on 10/21/16 07:50; Admin Dose 70 MLS/HR; Start 09/28/16 at 16:30 Ondansetron HCl/ Sodium Chloride (Zofran Inj/NS) 54 ml @ 216 mls/hr Q12H PRN IV NAUSEA AND/OR VOMITING; Start 09/29/16 at 22:00 Prednisone 5 mg 5 mg BID PO Last administered on 10/21/16 09:26; Admin Dose 5 MG; Start 09/29/16 at 21:00 Docetaxel 45 mg/ Sodium Chloride 100 ml @ 100 mls/hr Th@22 IV Last administered on 10/20/16 22:12; Admin Dose 100 MLS/HR; Start 10/06/16 at 22:00; Stop 10/27/16 at 22:59 Ondansetron HCl/ Dexamethasone/ Dextrose (Zofran Inj/ Decadron/D5W) 60 ml @ 252 mls/hr Th@2130 IV Last administered on 10/20/16 21:26; Admin Dose 252 MLS/ HR; Start 10/06/16 at 21:30; Stop 10/27/16 at 21:45 Bisacodyl (Dulcolax Supp) 10 mg DAILY PRN [place] CONSTIPATION Last administered on 10/07/16 03:07; Admin Dose 10 MG; Start 10/07/16 at 03:00 Fidaxomicin (Dificid) 200 mg BID PO Last administered on 10/21/16 09:26; Admin Dose 200 MG; Start 10/17/16 at 10:30 Hydromorphone HCl (Dilaudid) 2 mg Q3H PRN IV PAIN Last administered on 17:06; Admin Dose 2 MG; Start 10/19/16 at 15:30 Methadone HCl (Methadone Liq (Ped)) 3 mg Q6 PO Last administered on 10/21/16 18 :36; Admin Dose 3 MG; Start 10/19/16 at 18:00 Lansoprazole (Prevacid) 30 mg DAILY@06 PO ; Start 10/21/16 at 09:30 MICHAEL COELHO MD Oct 21, 2016 20:31
[2016-10-22] MEDS: METHADONE (1 MG/1 ML PO SYG) PO SCH ×5 (00:13→23:05)
[2016-10-22] MEDS: HYDROmorphONE 2 MG/ML SYG IV PRN ×7 (04:13→23:52)
[2016-10-22] MEDS: LANSOPRAZOLE 30 MG CAP PO SCH (05:43)
[2016-10-22 07:00] VITALS: BP 127/81; RESP 20
[2016-10-22] MEDS: FIDAXOMICIN 200 MG TABLET PO SCH ×2 (09:36→20:50)
[2016-10-22] MEDS: ESCITALOPRAM 10 MG TAB PO SCH (09:36)
[2016-10-22] MEDS: MEGESTROL (40 MG/ML) 10ML CUP PO SCH ×2 (09:36→20:50)
[2016-10-22] MEDS: CALCIUM/VITAMIN D (500/200) TAB PO SCH ×2 (09:36→20:50)
[2016-10-22] MEDS: predniSONE 5 MG TAB PO SCH ×2 (09:36→20:50)
[2016-10-22] MEDS: BICALUTAMIDE 50 MG TAB PO SCH (10:16)
--- NOTE | 2016-10-22 11:45 | CONS ---
Date/Time of Note Date/Time of Note DATE: 10/22/16 TIME: 11:44 Assessment/Plan Assessment/Plan Additional Assessment/Plan Impression: 1. Clostridium difficile colitis. 2. Abdominal pain: worsening, associated with nausea and vomiting. ddx include C. Diff colitis vs side effects from chemotherapy vs gastritis, duodenitis, esophagitis. 3. anemia 4. Metastatic prostate cancer. Dr. Hernandez is following patient in oncology consultation. Continue chemotherapy and steroids. 5. MRSA 6. Abnormal alkaline po4 secondary to jose mets. 7.diarrhea secondary to C.Difficile,better Recommendations: 1. Continue vancomycin for C. Diff. Consider fidaxomicin per ID. 2. f/uCMV PCR as pt is immunosuppressed and to r/o possible CMV colitis/ enteritis as cause of diarrhea 3. continue pain control 4. ordered occult stool blood negative 5. abx per ID 6. d/c Protonix ,it will aggravate 7. continue other supportive care per pcp and other consultants 8.Questran,increase dose 9,enteral feeding Consultation Date/Type/Reason Admit Date/Time Sep 06, 2016 at 22:01 Initial Consult Date 09/08/16 Type of Consultation: id Referring Provider: TIMOTHY MARAVILLA MD 24 HR Interval Summary Free Text/Dictation diarrhea and pain Exam/Review of Systems Vital Signs Vitals Vital Signs Date Time Temp Pulse Resp B/P Pulse Ox O2 Delivery O2 Flow Rate FiO2 10/22/16 07:00 98.1 99 20 127/81 97 10/20/16 23:50 Room Air Intake and Output 10/21/16 10/21/16 10/22/16 15:00 23:00 07:00 Intake Total 1460 ml 1340 ml Output Total 800 ml 2500 ml Balance 660 ml -1160 ml Exam Constitutional: alert, oriented, well developed Psych: nl mood/affect, no complaints Head: atraumatic, normocephalic Eyes: EOMI, PERRL, nl conjunctiva, nl lids, nl sclera ENMT: nl external ears & nose, nl lips & teeth, nl nasal mucosa & septum Neck: non-tender, supple Respiratory: clear to auscultation, normal air movement Cardiovascular: nl pulses, regular rate and rhythm Gastrointestinal: nl liver, spleen, non-tender, soft Musculoskeletal: nl extremities to inspection, nl gait and stance Extremities: normal pulses 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: COMPUTER NETWORKING INSTRUCTOR II-XII intact, nl mental status, nl speech, nl strength Skin: nl turgor, No rash or lesions Lymph: nl lymph nodes Results Result Diagram: 10/21/1642410/21/16424 Medications Medications Current Medications Bicalutamide (Casodex) 50 mg QAM PO Last administered on 10/22/16 10:16; Admin Dose 50 MG; Start 09/07/16 at 09:00 Docusate Sodium (Colace) 100 mg BID PRN PO CONSTIPATION Last administered on 05:22; Admin Dose 100 MG; Start 09/07/16 at 00:00; Status Future Hold Escitalopram Oxalate (Lexapro) 5 mg DAILY PO Last administered on 10/22/16 09: 36; Admin Dose 5 MG; Start 09/07/16 at 09:00 Megestrol Acetate (Megace Susp) 400 mg BID PO Last administered on 10/22/16 09: 36; Admin Dose 400 MG; Start 09/07/16 at 09:00 Methylnaltrexone [place] (Relistor) 12 mg Q48H SC Last administered on 23:54; Admin Dose 12 MG; Start 09/07/16 at 00:00; Status Future Hold Ondansetron HCl (Zofran Tab) 4 mg Q6H PRN PO NAUSEA AND/OR VOMITING Last administered on 10/19/16 18:17; Admin Dose 4 MG; Start 09/07/16 at 00:00 Acetaminophen (Tylenol Tab) 500 mg Q4H PRN PO PAIN AND OR ELEVATED TEMP Last administered on 10/05/16 15:37; Admin Dose 500 MG; Start 09/07/16 at 21:30 IV Flush (NS 10 ml) 10 ml PRN PRN IV IV PROTOCOL; Start 09/11/16 at 10:00 Calcium/Vitamin D (Oyster Shell/ Vit-D (500/200)) 1 tab BID PO Last administered on 10/22/16 09:36; Admin Dose 1 TAB; Start 09/12/16 at 14:00 IV Flush 10 ml 10 ml PRN PRN IV IV PROTOCOL; Start 09/21/16 at 12:00 Potassium Chloride/Sodium Chloride 1,000 ml @ 70 mls/hr [id number] IV Last administered on 10/21/16 22:41; Admin Dose 70 MLS/HR; Start 09/28/16 at 16:30 Ondansetron HCl/ Sodium Chloride (Zofran Inj/NS) 54 ml @ 216 mls/hr Q12H PRN IV NAUSEA AND/OR VOMITING; Start 09/29/16 at 22:00 Prednisone 5 mg 5 mg BID PO Last administered on 10/22/16 09:36; Admin Dose 5 MG; Start 09/29/16 at 21:00 Docetaxel 45 mg/ Sodium Chloride 100 ml @ 100 mls/hr Th@22 IV Last administered on 10/20/16 22:12; Admin Dose 100 MLS/HR; Start 10/06/16 at 22:00; Stop 10/27/16 at 22:59 Ondansetron HCl/ Dexamethasone/ Dextrose (Zofran Inj/ Decadron/D5W) 60 ml @ 252 mls/hr Th@2130 IV Last administered on 10/20/16 21:26; Admin Dose 252 MLS/ HR; Start 10/06/16 at 21:30; Stop 10/27/16 at 21:45 Bisacodyl (Dulcolax Supp) 10 mg DAILY PRN [place] CONSTIPATION Last administered on 10/07/16 03:07; Admin Dose 10 MG; Start 10/07/16 at 03:00 Fidaxomicin (Dificid) 200 mg BID PO Last administered on 10/22/16 09:36; Admin Dose 200 MG; Start 10/17/16 at 10:30 Hydromorphone HCl (Dilaudid) 2 mg Q3H PRN IV PAIN Last administered on 11:05; Admin Dose 2 MG; Start 10/19/16 at 15:30 Methadone HCl (Methadone Liq (Ped)) 3 mg Q6 PO Last administered on 10/22/16 05 :43; Admin Dose 3 MG; Start 10/19/16 at 18:00 Lansoprazole (Prevacid) 30 mg DAILY@06 PO Last administered on 10/22/16 05:43; Admin Dose 30 MG; Start 10/21/16 at 09:30 MICHAEL COELHO MD Oct 22, 2016 11:45
--- NOTE | 2016-10-22 12:17 | PN ---
Date/Time of Note Date/Time of Note DATE: 10/22/16 TIME: :17 Assessment/Plan VTE Prophylaxis VTE Prophylaxis Intervention: other Lines/Catheters IV Catheter Type (from Nrsg): Peripheral IV Urinary Cath still in place: Yes Reason Cath still needed: skin wounds contaminated by urine Assessment/Plan Chief Complaint/Hosp Course 1. Clostridium difficile colitis. Contact isolation. Patient is followed by Dr. Schuler group from infectious disease standpoint. Patient is currently on rifaximin and Dificid. 2. Metastatic prostate cancer. Dr. Hernandez is following patient in oncology consultation. Continue chemotherapy and steroids. 3. Thrombocytopenia. Continue to monitor platelets. 4. Acute on chronic back pain. Dr. Ferguson is following the patient in pain management. Continue methadone and Dilaudid p.r.n. for breakthrough pain. 5. Anemia, this post blood transfusion, continue to monitor hemoglobin and hematocrit. 6. MRSA UTI, status post treatment 7. Protein calorie malnutrition, continue Megace, continue high-protein and high-calorie diet, continue tube feeding via NG tube. Continue Protonix for peptic ulcer disease prophylaxis. Problems: Subjective 24 Hr Interval Summary Free Text/Dictation Patient resting comfortably Exam/Review of Systems Vital Signs Vitals Vital Signs Date Time Temp Pulse Resp B/P Pulse Ox O2 Delivery O2 Flow Rate FiO2 10/22/16 07:00 98.1 99 20 127/81 97 10/20/16 23:50 Room Air Intake and Output 10/21/16 10/21/16 10/22/16 15:00 23:00 07:00 Intake Total 1460 ml 1340 ml Output Total 800 ml 2500 ml Balance 660 ml -1160 ml Exam Constitutional: well developed Head: atraumatic, normocephalic Neck: supple Respiratory: clear to auscultation Cardiovascular: regular rate and rhythm Gastrointestinal: non-tender, soft Results Result Diagram: 10/21/16 0425 10/21/165 Medications Medications Current Medications Bicalutamide (Casodex) 50 mg QAM PO Last administered on 10/22/16 10:16; Admin Dose 50 MG; Start 09/07/16 at 09:00 Docusate Sodium (Colace) 100 mg BID PRN PO CONSTIPATION Last administered on 05:22; Admin Dose 100 MG; Start 09/07/16 at 00:00; Status Future Hold Escitalopram Oxalate (Lexapro) 5 mg DAILY PO Last administered on 10/22/16 09: 36; Admin Dose 5 MG; Start 09/07/16 at 09:00 Megestrol Acetate (Megace Susp) 400 mg BID PO Last administered on 10/22/16 09: 36; Admin Dose 400 MG; Start 09/07/16 at 09:00 Methylnaltrexone [place] (Relistor) 12 mg Q48H SC Last administered on 23:54; Admin Dose 12 MG; Start 09/07/16 at 00:00; Status Future Hold Ondansetron HCl (Zofran Tab) 4 mg Q6H PRN PO NAUSEA AND/OR VOMITING Last administered on 10/19/16 18:17; Admin Dose 4 MG; Start 09/07/16 at 00:00 Acetaminophen (Tylenol Tab) 500 mg Q4H PRN PO PAIN AND OR ELEVATED TEMP Last administered on 10/05/16 15:37; Admin Dose 500 MG; Start 09/07/16 at 21:30 IV Flush (NS 10 ml) 10 ml PRN PRN IV IV PROTOCOL; Start 09/11/16 at 10:00 Calcium/Vitamin D (Oyster Shell/ Vit-D (500/200)) 1 tab BID PO Last administered on 10/22/16 09:36; Admin Dose 1 TAB; Start 09/12/16 at 14:00 IV Flush 10 ml 10 ml PRN PRN IV IV PROTOCOL; Start 09/21/16 at 12:00 Potassium Chloride/Sodium Chloride 1,000 ml @ 70 mls/hr [id number] IV Last administered on 10/21/16 22:41; Admin Dose 70 MLS/HR; Start 09/28/16 at 16:30 Ondansetron HCl/ Sodium Chloride (Zofran Inj/NS) 54 ml @ 216 mls/hr Q12H PRN IV NAUSEA AND/OR VOMITING; Start 09/29/16 at 22:00 Prednisone 5 mg 5 mg BID PO Last administered on 10/22/16 09:36; Admin Dose 5 MG; Start 09/29/16 at 21:00 Docetaxel 45 mg/ Sodium Chloride 100 ml @ 100 mls/hr Th@22 IV Last administered on 10/20/16 22:12; Admin Dose 100 MLS/HR; Start 10/06/16 at 22:00; Stop 10/27/16 at 22:59 Ondansetron HCl/ Dexamethasone/ Dextrose (Zofran Inj/ Decadron/D5W) 60 ml @ 252 mls/hr Th@2130 IV Last administered on 10/20/16 21:26; Admin Dose 252 MLS/ HR; Start 10/06/16 at 21:30; Stop 10/27/16 at 21:45 Bisacodyl (Dulcolax Supp) 10 mg DAILY PRN [place] CONSTIPATION Last administered on 10/07/16 03:07; Admin Dose 10 MG; Start 10/07/16 at 03:00 Fidaxomicin (Dificid) 200 mg BID PO Last administered on 10/22/16 09:36; Admin Dose 200 MG; Start 10/17/16 at 10:30 Hydromorphone HCl (Dilaudid) 2 mg Q3H PRN IV PAIN Last administered on 11:05; Admin Dose 2 MG; Start 10/19/16 at 15:30 Methadone HCl (Methadone Liq (Ped)) 3 mg Q6 PO Last administered on 10/22/16 05 :43; Admin Dose 3 MG; Start 10/19/16 at 18:00 Cholestyramine Resin (Questran Light) 4 gm BID PO ; Start 10/22/16 at 21:00 NASREEN DAMON Oct 22, 2016 12:17
[2016-10-22] MEDS: NS + KCL 20 MEQ 1,000 ML IV SCH (13:08)
--- NOTE | 2016-10-22 18:31 | CONS ---
Date/Time of Note Date/Time of Note DATE: 10/22/16 TIME: 18:30 Assessment/Plan Assessment/Plan Chief Complaint/Hosp Course SUBJECTIVE: No acute events, awake, no fevers, nad. Had 2 soft BM's ANTIMICROBIALS: 1. Dificid. INDWELLINGS: White, PICC, NG tube. PHYSICAL EXAMINATION: GENERAL: Cachectic, elderly man, in no distress. HEENT: Head atraumatic, normocephalic. Sclerae anicteric. Buccal mucosa dry. NECK: Supple, trachea midline. CHEST: Chest rise is symmetrical. Breath sounds diminished to the bases. HEART: S1, S2. ABDOMEN: Soft, bowel tones present. EXTREMITIES: Without cyanosis. ASSESSMENT: 1. Clostridium difficile colitis, CMV DNA by PCR was negative. 2. Metastatic prostate carcinoma. 3. Cachexia. 4. Status post methicillin-resistant Staphylococcus aureus urinary tract infection. PLAN: The patient remains stable, followed by gastroenterology and oncology, diarrhea resolving. Continue the present care, antimicrobials, anti-aspiration measures. DW staff Problems: Consultation Date/Type/Reason Admit Date/Time Sep 06, 2016 at 22:01 Initial Consult Date 09/08/16 Type of Consultation: id Referring Provider: TIMOTHY MARAVILLA MD Exam/Review of Systems Vital Signs Vitals Vital Signs Date Time Temp Pulse Resp B/P Pulse Ox O2 Delivery O2 Flow Rate FiO2 10/22/16 07:00 98.1 99 20 127/81 97 10/20/16 23:50 Room Air Intake and Output 10/21/16 10/21/16 10/22/16 14:59 22:59 06:59 Intake Total 1460 ml 1340 ml Output Total 800 ml 2500 ml Balance 660 ml -1160 ml Results Result Diagram: 10/21/16 0425 10/21/16 0425 Medications Medications Current Medications Bicalutamide (Casodex) 50 mg QAM PO Last administered on 10/22/16 10:16; Admin Dose 50 MG; Start 09/07/16 at 09:00 Docusate Sodium (Colace) 100 mg BID PRN PO CONSTIPATION Last administered on 05:22; Admin Dose 100 MG; Start 09/07/16 at 00:00; Status Future Hold Escitalopram Oxalate (Lexapro) 5 mg DAILY PO Last administered on 10/22/16 09: 36; Admin Dose 5 MG; Start 09/07/16 at 09:00 Megestrol Acetate (Megace Susp) 400 mg BID PO Last administered on 10/22/16 09: 36; Admin Dose 400 MG; Start 09/07/16 at 09:00 Methylnaltrexone [place] (Relistor) 12 mg Q48H SC Last administered on 23:54; Admin Dose 12 MG; Start 09/07/16 at 00:00; Status Future Hold Ondansetron HCl (Zofran Tab) 4 mg Q6H PRN PO NAUSEA AND/OR VOMITING Last administered on 10/19/16 18:17; Admin Dose 4 MG; Start 09/07/16 at 00:00 Acetaminophen (Tylenol Tab) 500 mg Q4H PRN PO PAIN AND OR ELEVATED TEMP Last administered on 10/05/16 15:37; Admin Dose 500 MG; Start 09/07/16 at 21:30 IV Flush (NS 10 ml) 10 ml PRN PRN IV IV PROTOCOL; Start 09/11/16 at 10:00 Calcium/Vitamin D (Oyster Shell/ Vit-D (500/200)) 1 tab BID PO Last administered on 10/22/16 09:36; Admin Dose 1 TAB; Start 09/12/16 at 14:00 IV Flush 10 ml 10 ml PRN PRN IV IV PROTOCOL; Start 09/21/16 at 12:00 Potassium Chloride/Sodium Chloride 1,000 ml @ 70 mls/hr [id number] IV Last administered on 10/22/16 13:08; Admin Dose 70 MLS/HR; Start 09/28/16 at 16:30 Ondansetron HCl/ Sodium Chloride (Zofran Inj/NS) 54 ml @ 216 mls/hr Q12H PRN IV NAUSEA AND/OR VOMITING; Start 09/29/16 at 22:00 Prednisone 5 mg 5 mg BID PO Last administered on 10/22/16 09:36; Admin Dose 5 MG; Start 09/29/16 at 21:00 Docetaxel 45 mg/ Sodium Chloride 100 ml @ 100 mls/hr Th@22 IV Last administered on 10/20/16 22:12; Admin Dose 100 MLS/HR; Start 10/06/16 at 22:00; Stop 10/27/16 at 22:59 Ondansetron HCl/ Dexamethasone/ Dextrose (Zofran Inj/ Decadron/D5W) 60 ml @ 252 mls/hr Th@2130 IV Last administered on 10/20/16 21:26; Admin Dose 252 MLS/ HR; Start 10/06/16 at 21:30; Stop 10/27/16 at 21:45 Bisacodyl (Dulcolax Supp) 10 mg DAILY PRN [place] CONSTIPATION Last administered on 10/07/16 03:07; Admin Dose 10 MG; Start 10/07/16 at 03:00 Fidaxomicin (Dificid) 200 mg BID PO Last administered on 10/22/16 09:36; Admin Dose 200 MG; Start 10/17/16 at 10:30 Hydromorphone HCl (Dilaudid) 2 mg Q3H PRN IV PAIN Last administered on 17:37; Admin Dose 2 MG; Start 10/19/16 at 15:30 Methadone HCl (Methadone Liq (Ped)) 3 mg Q6 PO Last administered on 10/22/16 17 :37; Admin Dose 3 MG; Start 10/19/16 at 18:00 Cholestyramine Resin (Questran Light) 4 gm BID PO ; Start 10/22/16 at 21:00 EUNICE GUNTER NP Oct 22, 2016 18:31
[2016-10-22 19:50] VITALS: BP 99/62; RESP 18
--- NOTE | 2016-10-22 20:15 | CONS ---
Date/Time of Note Date/Time of Note DATE: 10/22/16 TIME: 20:09 Assessment/Plan Assessment/Plan Chief Complaint/Hosp Course Metastatic prostate cancer. FAMILY CONFERENCE RE DX, PROGNOSIS AND TREATMENT OPTIONS RE: chemotherapy and steroids - PER PROTOCOL Chemotherapy Docetaxel (Taxotere) 30 mg/m2 IV over 30 minutes once per day on days 1, 8, 15, 22, 29 Prednisone (Sterapred) 5 mg PO BID on days 1 to 42 Supportive medications Dexamethasone (Decadron) 8 mg (route not specified) once 1 hour before Docetaxel (Taxotere) Antiemetics "according to local practice" 42-day cycle for up to 5 cycles ANEMIA POST PRBC MONITOR CLOSELY OBSERVE FOR BLEEDING AND HEMOLYSIS Thrombocytopenia. Continue to monitor platelets. transfuse as needed PANCYTOPENIA MONITOR DECONDITIONING PT Acute on chronic back pain. PAIN CONTROL C DIFF COLITIS ATB PER ID AND GI Continue vancomycin for C. Diff. Consider fidaxomicin per ID. occult stool blood negative Questran,increase dose enteral feeding Problems: Consultation Date/Type/Reason Admit Date/Time Sep 06, 2016 at 22:01 Initial Consult Date 09/08/16 Type of Consultation: hemeon Reason for Consultation prostate cancer Referring Provider: TIMOTHY MARAVILLA MD 24 HR Interval Summary Free Text/Dictation post chemo OCT 20 COUNT IMPROVING NO FEVER + 5 BM No acute events, awake, no fevers, nad. Exam/Review of Systems Vital Signs Vitals Vital Signs Date Time Temp Pulse Resp B/P Pulse Ox O2 Delivery O2 Flow Rate FiO2 10/22/16 19:50 98.2 76 18 99/62 98 10/20/16 23:50 Room Air Intake and Output 10/21/16 10/21/16 10/22/16 15:00 23:00 07:00 Intake Total 1460 ml 1340 ml Output Total 800 ml 2500 ml Balance 660 ml -1160 ml Exam GENERAL: Cachectic, elderly man, in no distress. HEENT: Head atraumatic, normocephalic. Sclerae anicteric. Buccal mucosa dry. NECK: Supple, trachea midline. CHEST: Chest rise is symmetrical. Breath sounds diminished to the bases. HEART: S1, S2. ABDOMEN: Soft, bowel tones present. EXTREMITIES: Without cyanosis. Results Result Diagram: 10/21/16 0425 10/21/16 0425 Medications Medications Current Medications Bicalutamide (Casodex) 50 mg QAM PO Last administered on 10/22/16 10:16; Admin Dose 50 MG; Start 09/07/16 at 09:00 Docusate Sodium (Colace) 100 mg BID PRN PO CONSTIPATION Last administered on 05:22; Admin Dose 100 MG; Start 09/07/16 at 00:00; Status Future Hold Escitalopram Oxalate (Lexapro) 5 mg DAILY PO Last administered on 10/22/16 09: 36; Admin Dose 5 MG; Start 09/07/16 at 09:00 Megestrol Acetate (Megace Susp) 400 mg BID PO Last administered on 10/22/16 09: 36; Admin Dose 400 MG; Start 09/07/16 at 09:00 Methylnaltrexone [place] (Relistor) 12 mg Q48H SC Last administered on 23:54; Admin Dose 12 MG; Start 09/07/16 at 00:00; Status Future Hold Ondansetron HCl (Zofran Tab) 4 mg Q6H PRN PO NAUSEA AND/OR VOMITING Last administered on 10/19/16 18:17; Admin Dose 4 MG; Start 09/07/16 at 00:00 Acetaminophen (Tylenol Tab) 500 mg Q4H PRN PO PAIN AND OR ELEVATED TEMP Last administered on 10/05/16 15:37; Admin Dose 500 MG; Start 09/07/16 at 21:30 IV Flush (NS 10 ml) 10 ml PRN PRN IV IV PROTOCOL; Start 09/11/16 at 10:00 Calcium/Vitamin D (Oyster Shell/ Vit-D (500/200)) 1 tab BID PO Last administered on 10/22/16 09:36; Admin Dose 1 TAB; Start 09/12/16 at 14:00 IV Flush 10 ml 10 ml PRN PRN IV IV PROTOCOL; Start 09/21/16 at 12:00 Potassium Chloride/Sodium Chloride 1,000 ml @ 70 mls/hr [id number] IV Last administered on 10/22/16 13:08; Admin Dose 70 MLS/HR; Start 09/28/16 at 16:30 Ondansetron HCl/ Sodium Chloride (Zofran Inj/NS) 54 ml @ 216 mls/hr Q12H PRN IV NAUSEA AND/OR VOMITING; Start 09/29/16 at 22:00 Prednisone 5 mg 5 mg BID PO Last administered on 10/22/16 09:36; Admin Dose 5 MG; Start 09/29/16 at 21:00 Docetaxel 45 mg/ Sodium Chloride 100 ml @ 100 mls/hr Th@22 IV Last administered on 10/20/16 22:12; Admin Dose 100 MLS/HR; Start 10/06/16 at 22:00; Stop 10/27/16 at 22:59 Ondansetron HCl/ Dexamethasone/ Dextrose (Zofran Inj/ Decadron/D5W) 60 ml @ 252 mls/hr Th@2130 IV Last administered on 10/20/16 21:26; Admin Dose 252 MLS/ HR; Start 10/06/16 at 21:30; Stop 10/27/16 at 21:45 Bisacodyl (Dulcolax Supp) 10 mg DAILY PRN [place] CONSTIPATION Last administered on 10/07/16 03:07; Admin Dose 10 MG; Start 10/07/16 at 03:00 Fidaxomicin (Dificid) 200 mg BID PO Last administered on 10/22/16 09:36; Admin Dose 200 MG; Start 10/17/16 at 10:30 Hydromorphone HCl (Dilaudid) 2 mg Q3H PRN IV PAIN Last administered on 17:37; Admin Dose 2 MG; Start 10/19/16 at 15:30 Methadone HCl (Methadone Liq (Ped)) 3 mg Q6 PO Last administered on 10/22/16 17 :37; Admin Dose 3 MG; Start 10/19/16 at 18:00 Cholestyramine Resin (Questran Light) 4 gm BID PO ; Start 10/22/16 at 21:00 JARAD CHOI MD Oct 22, 2016 20:15
[2016-10-22] MEDS: CHOLESTYRAMINE (LIGHT) 4 GM PACKET PO SCH (20:50)
[2016-10-23] MEDS: NS + KCL 20 MEQ 1,000 ML IV SCH ×3 (02:48→18:13)
[2016-10-23] MEDS: HYDROmorphONE 2 MG/ML SYG IV PRN ×5 (03:53→23:02)
[2016-10-23] MEDS: METHADONE (1 MG/1 ML PO SYG) PO SCH ×3 (05:08→18:12)
[2016-10-23 08:22] VITALS: BP 99/63; PULSE 96; RESP 16
[2016-10-23] MEDS: predniSONE 5 MG TAB PO SCH ×2 (09:53→21:21)
[2016-10-23] MEDS: FIDAXOMICIN 200 MG TABLET PO SCH ×2 (09:53→21:21)
[2016-10-23] MEDS: MEGESTROL (40 MG/ML) 10ML CUP PO SCH ×2 (09:54→21:21)
[2016-10-23] MEDS: CALCIUM/VITAMIN D (500/200) TAB PO SCH ×2 (09:54→21:21)
[2016-10-23] MEDS: CHOLESTYRAMINE (LIGHT) 4 GM PACKET PO SCH ×2 (09:54→21:21)
[2016-10-23] MEDS: ESCITALOPRAM 10 MG TAB PO SCH (09:54)
[2016-10-23] MEDS: BICALUTAMIDE 50 MG TAB PO SCH (11:18)
--- NOTE | 2016-10-23 11:39 | PN ---
Date/Time of Note Date/Time of Note DATE: 10/23/16 TIME: 11:38 Assessment/Plan VTE Prophylaxis VTE Prophylaxis Intervention: other Lines/Catheters IV Catheter Type (from Nrsg): PICC Line Central line still needed: Yes Urinary Cath still in place: Yes Reason Cath still needed: skin wounds contaminated by urine Assessment/Plan Chief Complaint/Hosp Course 1. Clostridium difficile colitis. Contact isolation. Patient is followed by Dr. Harini rosas from infectious disease standpoint. Patient is currently on rifaximin and Dificid. 2. Metastatic prostate cancer. Dr. Hernandez is following patient in oncology consultation. Continue chemotherapy and steroids. 3. Thrombocytopenia. Continue to monitor platelets. 4. Acute on chronic back pain. Dr. Ferguson is following the patient in pain management. Continue methadone and Dilaudid p.r.n. for breakthrough pain. 5. Anemia, this post blood transfusion, continue to monitor hemoglobin and hematocrit. 6. MRSA UTI, status post treatment 7. Protein calorie malnutrition, continue Megace, continue high-protein and high-calorie diet, continue tube feeding via NG tube. Continue Protonix for peptic ulcer disease prophylaxis. Problems: Subjective 24 Hr Interval Summary Free Text/Dictation Patient has no complaints Exam/Review of Systems Vital Signs Vitals Vital Signs Date Time Temp Pulse Resp B/P Pulse Ox O2 Delivery O2 Flow Rate FiO2 10/23/16 08:22 97.5 96 16 99/63 96 10/20/16 23:50 Room Air Intake and Output 10/22/16 10/22/16 10/23/16 15:00 23:00 07:00 Intake Total 510 ml 1360 ml 1840 ml Output Total 500 ml 1450 ml Balance 510 ml 860 ml 390 ml Exam Constitutional: well developed Head: atraumatic, normocephalic Neck: supple Respiratory: clear to auscultation Cardiovascular: regular rate and rhythm Gastrointestinal: non-tender, soft Extremities: normal pulses Results Result Diagram: 10/21/16 0425 10/21/16 0425 Medications Medications Current Medications Bicalutamide (Casodex) 50 mg QAM PO Last administered on 10/23/16 11:18; Admin Dose 50 MG; Start 09/07/16 at 09:00 Docusate Sodium (Colace) 100 mg BID PRN PO CONSTIPATION Last administered on 05:22; Admin Dose 100 MG; Start 09/07/16 at 00:00; Status Future Hold Escitalopram Oxalate (Lexapro) 5 mg DAILY PO Last administered on 10/23/16 09: 54; Admin Dose 5 MG; Start 09/07/16 at 09:00 Megestrol Acetate (Megace Susp) 400 mg BID PO Last administered on 10/23/16 09: 54; Admin Dose 400 MG; Start 09/07/16 at 09:00 Methylnaltrexone [place] (Relistor) 12 mg Q48H SC Last administered on 23:54; Admin Dose 12 MG; Start 09/07/16 at 00:00; Status Future Hold Ondansetron HCl (Zofran Tab) 4 mg Q6H PRN PO NAUSEA AND/OR VOMITING Last administered on 10/19/16 18:17; Admin Dose 4 MG; Start 09/07/16 at 00:00 Acetaminophen (Tylenol Tab) 500 mg Q4H PRN PO PAIN AND OR ELEVATED TEMP Last administered on 10/05/16 15:37; Admin Dose 500 MG; Start 09/07/16 at 21:30 IV Flush (NS 10 ml) 10 ml PRN PRN IV IV PROTOCOL; Start 09/11/16 at 10:00 Calcium/Vitamin D (Oyster Shell/ Vit-D (500/200)) 1 tab BID PO Last administered on 10/23/16 09:54; Admin Dose 1 TAB; Start 09/12/16 at 14:00 IV Flush 10 ml 10 ml PRN PRN IV IV PROTOCOL; Start 09/21/16 at 12:00 Potassium Chloride/Sodium Chloride 1,000 ml @ 70 mls/hr [id number] IV Last administered on 10/23/16 03:54; Admin Dose 70 MLS/HR; Start 09/28/16 at 16:30 Ondansetron HCl/ Sodium Chloride (Zofran Inj/NS) 54 ml @ 216 mls/hr Q12H PRN IV NAUSEA AND/OR VOMITING; Start 09/29/16 at 22:00 Prednisone 5 mg 5 mg BID PO Last administered on 10/23/16 09:53; Admin Dose 5 MG; Start 09/29/16 at 21:00 Docetaxel 45 mg/ Sodium Chloride 100 ml @ 100 mls/hr Th@22 IV Last administered on 10/20/16 22:12; Admin Dose 100 MLS/HR; Start 10/06/16 at 22:00; Stop 10/27/16 at 22:59 Ondansetron HCl/ Dexamethasone/ Dextrose (Zofran Inj/ Decadron/D5W) 60 ml @ 252 mls/hr Th@2130 IV Last administered on 10/20/16 21:26; Admin Dose 252 MLS/ HR; Start 10/06/16 at 21:30; Stop 10/27/16 at 21:45 Bisacodyl (Dulcolax Supp) 10 mg DAILY PRN [place] CONSTIPATION Last administered on 10/07/16 03:07; Admin Dose 10 MG; Start 10/07/16 at 03:00 Fidaxomicin (Dificid) 200 mg BID PO Last administered on 10/23/16 09:53; Admin Dose 200 MG; Start 10/17/16 at 10:30 Hydromorphone HCl (Dilaudid) 2 mg Q3H PRN IV PAIN Last administered on 07:42; Admin Dose 2 MG; Start 10/19/16 at 15:30 Methadone HCl (Methadone Liq (Ped)) 3 mg Q6 PO Last administered on 10/23/16 05 :08; Admin Dose 3 MG; Start 10/19/16 at 18:00 Cholestyramine Resin (Questran Light) 4 gm BID PO Last administered on 09:54; Admin Dose 4 GM; Start 10/22/16 at 21:00 NASREEN DAMON Oct 23, 2016 11:39
--- NOTE | 2016-10-23 15:46 | CONS ---
Date/Time of Note Date/Time of Note DATE: 10/23/16 TIME: 15:45 Assessment/Plan Assessment/Plan Chief Complaint/Hosp Course Metastatic prostate cancer. FAMILY CONFERENCE RE DX, PROGNOSIS AND TREATMENT OPTIONS RE: chemotherapy and steroids - PER PROTOCOL Chemotherapy Docetaxel (Taxotere) 30 mg/m2 IV over 30 minutes once per day on days 1, 8, 15, 22, 29 Prednisone (Sterapred) 5 mg PO BID on days 1 to 42 Supportive medications Dexamethasone (Decadron) 8 mg (route not specified) once 1 hour before Docetaxel (Taxotere) Antiemetics "according to local practice" 42-day cycle for up to 5 cycles ANEMIA POST PRBC MONITOR CLOSELY OBSERVE FOR BLEEDING AND HEMOLYSIS Thrombocytopenia. Continue to monitor platelets. transfuse as needed PANCYTOPENIA MONITOR DECONDITIONING PT Acute on chronic back pain. PAIN CONTROL C DIFF COLITIS ATB PER ID Problems: Consultation Date/Type/Reason Admit Date/Time Sep 06, 2016 at 22:01 Initial Consult Date 09/08/16 Type of Consultation: hemeonc Referring Provider: TIMOTHY MARAVILLA MD 24 HR Interval Summary Free Text/Dictation ALL NOTED NO NEW EVENTS Exam/Review of Systems Vital Signs Vitals Vital Signs Date Time Temp Pulse Resp B/P Pulse Ox O2 Delivery O2 Flow Rate FiO2 10/23/16 08:22 97.5 96 16 99/63 96 10/20/16 23:50 Room Air Intake and Output 10/22/16 10/22/16 10/23/16 15:00 23:00 07:00 Intake Total 510 ml 1360 ml 1840 ml Output Total 500 ml 1450 ml Balance 510 ml 860 ml 390 ml Exam GENERAL: Cachectic, elderly man, in no distress. HEENT: Head atraumatic, normocephalic. Sclerae anicteric. Buccal mucosa dry. NECK: Supple, trachea midline. CHEST: Chest rise is symmetrical. Breath sounds diminished to the bases. HEART: S1, S2. ABDOMEN: Soft, bowel tones present. EXTREMITIES: Without cyanosis. Results Result Diagram: 10/21/16 0425 10/21/16 0425 Medications Medications Current Medications Bicalutamide (Casodex) 50 mg QAM PO Last administered on 10/23/16t 11:18; Admin Dose 50 MG; Start 09/07/16 at 09:00 Docusate Sodium (Colace) 100 mg BID PRN PO CONSTIPATION Last administered on 05:22; Admin Dose 100 MG; Start 09/07/16 at 00:00; Status Future Hold Escitalopram Oxalate (Lexapro) 5 mg DAILY PO Last administered on 10/23/16 09: 54; Admin Dose 5 MG; Start 09/07/16 at 09:00 Megestrol Acetate (Megace Susp) 400 mg BID PO Last administered on 10/23/16 09: 54; Admin Dose 400 MG; Start 09/07/16 at 09:00 Methylnaltrexone [place] (Relistor) 12 mg Q48H SC Last administered on 23:54; Admin Dose 12 MG; Start 09/07/16 at 00:00; Status Future Hold Ondansetron HCl (Zofran Tab) 4 mg Q6H PRN PO NAUSEA AND/OR VOMITING Last administered on 10/19/16 18:17; Admin Dose 4 MG; Start 09/07/16 at 00:00 Acetaminophen (Tylenol Tab) 500 mg Q4H PRN PO PAIN AND OR ELEVATED TEMP Last administered on 10/05/16 15:37; Admin Dose 500 MG; Start 09/07/16 at 21:30 IV Flush (NS 10 ml) 10 ml PRN PRN IV IV PROTOCOL; Start 09/11/16 at 10:00 Calcium/Vitamin D (Oyster Shell/ Vit-D (500/200)) 1 tab BID PO Last administered on 10/23/16 09:54; Admin Dose 1 TAB; Start 09/12/16 at 14:00 IV Flush 10 ml 10 ml PRN PRN IV IV PROTOCOL; Start 09/21/16 at 12:00 Potassium Chloride/Sodium Chloride 1,000 ml @ 70 mls/hr [id number] IV Last administered on 10/23/16 03:54; Admin Dose 70 MLS/HR; Start 09/28/16 at 16:30 Ondansetron HCl/ Sodium Chloride (Zofran Inj/NS) 54 ml @ 216 mls/hr Q12H PRN IV NAUSEA AND/OR VOMITING; Start 09/29/16 at 22:00 Prednisone 5 mg 5 mg BID PO Last administered on 10/23/16 09:53; Admin Dose 5 MG; Start 09/29/16 at 21:00 Docetaxel 45 mg/ Sodium Chloride 100 ml @ 100 mls/hr Th@22 IV Last administered on 10/20/16 22:12; Admin Dose 100 MLS/HR; Start 10/06/16 at 22:00; Stop 10/27/16 at 22:59 Ondansetron HCl/ Dexamethasone/ Dextrose (Zofran Inj/ Decadron/D5W) 60 ml @ 252 mls/hr Th@2130 IV Last administered on 10/20/16 21:26; Admin Dose 252 MLS/ HR; Start 10/06/16 at 21:30; Stop 10/27/16 at 21:45 Bisacodyl (Dulcolax Supp) 10 mg DAILY PRN [place] CONSTIPATION Last administered on 10/07/16 03:07; Admin Dose 10 MG; Start 10/07/16 at 03:00 Fidaxomicin (Dificid) 200 mg BID PO Last administered on 10/23/16 09:53; Admin Dose 200 MG; Start 10/17/16 at 10:30 Hydromorphone HCl (Dilaudid) 2 mg Q3H PRN IV PAIN Last administered on 13:36; Admin Dose 2 MG; Start 10/19/16 at 15:30 Methadone HCl (Methadone Liq (Ped)) 3 mg Q6 PO Last administered on 10/23/16 12 :50; Admin Dose 3 MG; Start 10/19/16 at 18:00 Cholestyramine Resin (Questran Light) 4 gm BID PO Last administered on 09:54; Admin Dose 4 GM; Start 10/22/16 at 21:00 JARAD CHOI MD Oct 23, 2016 15:45
[2016-10-23 19:12] VITALS: BP 107/70; RESP 18
--- NOTE | 2016-10-23 20:34 | PN ---
DATE: 10/23/2016 SUBJECTIVE: No acute events per discussion with RN. Patient had been having loose stools. He is l coleen comfortably in bed, afebrile. MEDICATIONS 1. Dificid. 2. Questran. INDWELLINGS: NG tube, PICC line, White. PHYSICAL EXAMINATION GENERAL: This is a fragile, cachectic elderly man who is in no distress. HEENT: Head atraumatic, normocephalic. Sclerae anicteric. Buccal mucosa dry. NECK: Supple. Trachea midline. CHEST: Rise symmetrical. Breath sounds diminished to bases. HEART: S1, S2. ABDOMEN: Soft, bowel tones present. EXTREMITIES: No cyanosis. ASSESSMENT 1. Persistent Clostridium difficile colitis, so far no evidence for cytomegalovirus colitis as per cultures. 2. Metastatic prostate carcinoma. 3. Dysphagia and cachexia. 4. Status post methicillin-resistant Staphylococcus aureus urinary tract infection. PLAN: The patient remains stable. Continue present care, antibiotics. Follow GI recommendations a nd repeat stool for Clostridium difficile. Above was discussed with RN. Dictated By: EUNICE GUNTER [employer] SERVICE TECHNICIAN for [employer] MULLINS/ADRIANA Conf#: [id number] DID#: [id number]
[2016-10-24] MEDS: METHADONE (1 MG/1 ML PO SYG) PO SCH ×4 (00:50→17:27)
[2016-10-24] MEDS: HYDROmorphONE 2 MG/ML SYG IV PRN ×5 (02:37→21:35)
[2016-10-24 05:31] LABS: HEMATOCRIT 31.6 % (42.0-52.0); HEMOGLOBIN 10.8 g/dl (14.0-18.0); MEAN CORPUSCULAR HEMOGLOBIN 29.4 pg (29.0-33.0); MEAN CORPUSCULAR HGB CONC 34.3 g/dl (32.0-37.0); MEAN CORPUSCULAR VOLUME 85.6 fl (82.0-101.0); MEAN PLATELET VOLUME 8.6 fl (7.4-10.4); PLATELET COUNT 56 10^3/UL (140-440); RED BLOOD COUNT 3.69 10^6/ul (4.70-6.10); UNCORRECTED WBC 1.3 10^3/ul (4.8-10.8); WHITE BLOOD COUNT 1.3 10^3/ul (4.8-10.8)
[2016-10-24] MEDS: NS + KCL 20 MEQ 1,000 ML IV SCH ×3 (05:53→21:59)
[2016-10-24 06:16] LABS: CONDITION 1; LH ANALYZER COMMENTS 1; SUSPECT 1
[2016-10-24 08:39] VITALS: BP 110/70; RESP 20
--- NOTE | 2016-10-24 09:26 | CONS ---
Date/Time of Note Date/Time of Note DATE: 10/24/16 TIME: 09:26 Assessment/Plan Assessment/Plan Chief Complaint/Hosp Course Metastatic prostate cancer. FAMILY CONFERENCE RE DX, PROGNOSIS AND TREATMENT OPTIONS RE: chemotherapy and steroids - PER PROTOCOL Chemotherapy Docetaxel (Taxotere) 30 mg/m2 IV over 30 minutes once per day on days 1, 8, 15, 22, 29 Prednisone (Sterapred) 5 mg PO BID on days 1 to 42 Supportive medications Dexamethasone (Decadron) 8 mg (route not specified) once 1 hour before Docetaxel (Taxotere) Antiemetics "according to local practice" 42-day cycle for up to 5 cycles ANEMIA POST PRBC MONITOR CLOSELY OBSERVE FOR BLEEDING AND HEMOLYSIS Thrombocytopenia. Continue to monitor platelets. transfuse as needed PANCYTOPENIA MONITOR DECONDITIONING PT Acute on chronic back pain. PAIN CONTROL C DIFF COLITIS ATB PER ID Problems: Consultation Date/Type/Reason Admit Date/Time Sep 06, 2016 at 22:01 Initial Consult Date 09/08/16 Type of Consultation: hemeonc Referring Provider: TIMOTHY MARAVILLA MD 24 HR Interval Summary Free Text/Dictation AL NOTED D/W RN Exam/Review of Systems Vital Signs Vitals Vital Signs Date Time Temp Pulse Resp B/P Pulse Ox O2 Delivery O2 Flow Rate FiO2 10/24/16 08:39 97.9 94 20 110/70 98 10/20/16 23:50 Room Air Intake and Output 10/23/16 10/23/16 10/24/16 15:00 23:00 07:00 Intake Total 650 ml 1620 ml Output Total 1250 ml 1150 ml Balance -600 ml 470 ml Exam GENERAL: The patient is lethargic but arousable. HEENT: No eye discharge. Oropharynx revealed dry mucosa. NECK: No mass. LUNGS: Occasional coarse breath sounds. CARDIOVASCULAR: S1, S2 normal. Sinus tachycardia. ABDOMEN: Soft, nondistended, nontender. EXTREMITIES: No leg edema. Cachectic extremities. Results Result Diagram: 10/24/16 0430 10/21/16 0425 Results 24 hrs Laboratory Tests Test 10/24/16 04:30 Blood Morphology Comment Hematocrit 31.6 L Hemoglobin 10.8 L Mean Corpuscular Hemoglobin 29.4 Mean Corpuscular Hemoglobin Concent 34.3 Mean Corpuscular Volume 85.6 Mean Platelet Volume 8.6 Platelet Count 56 #L Red Blood Count 3.69 L Red Cell Distribution Width 16.0 H White Blood Count 1.3 #L Medications Medications Current Medications Bicalutamide (Casodex) 50 mg QAM PO Last administered on 10/23/16 11:18; Admin Dose 50 MG; Start 09/07/16 at 09:00 Docusate Sodium (Colace) 100 mg BID PRN PO CONSTIPATION Last administered on 05:22; Admin Dose 100 MG; Start 09/07/16 at 00:00; Status Future Hold Escitalopram Oxalate (Lexapro) 5 mg DAILY PO Last administered on 10/23/16 09: 54; Admin Dose 5 MG; Start 09/07/16 at 09:00 Megestrol Acetate (Megace Susp) 400 mg BID PO Last administered on 10/23/16 21: 21; Admin Dose 400 MG; Start 09/07/16 at 09:00 Methylnaltrexone [place] (Relistor) 12 mg Q48H SC Last administered on 23:54; Admin Dose 12 MG; Start 09/07/16 at 00:00; Status Future Hold Ondansetron HCl (Zofran Tab) 4 mg Q6H PRN PO NAUSEA AND/OR VOMITING Last administered on 10/19/16 18:17; Admin Dose 4 MG; Start 09/07/16 at 00:00 Acetaminophen (Tylenol Tab) 500 mg Q4H PRN PO PAIN AND OR ELEVATED TEMP Last administered on 10/05/16 15:37; Admin Dose 500 MG; Start 09/07/16 at 21:30 IV Flush (NS 10 ml) 10 ml PRN PRN IV IV PROTOCOL; Start 09/11/16 at 10:00 Calcium/Vitamin D (Oyster Shell/ Vit-D (500/200)) 1 tab BID PO Last administered on 10/23/16 21:21; Admin Dose 1 TAB; Start 09/12/16 at 14:00 IV Flush 10 ml 10 ml PRN PRN IV IV PROTOCOL; Start 09/21/16 at 12:00 Potassium Chloride/Sodium Chloride 1,000 ml @ 70 mls/hr [id number] IV Last administered on 10/24/16 05:53; Admin Dose 70 MLS/HR; Start 09/28/16 at 16:30 Ondansetron HCl/ Sodium Chloride (Zofran Inj/NS) 54 ml @ 216 mls/hr Q12H PRN IV NAUSEA AND/OR VOMITING; Start 09/29/16 at 22:00 Prednisone 5 mg 5 mg BID PO Last administered on 10/23/16 21:21; Admin Dose 5 MG; Start 09/29/16 at 21:00 Docetaxel 45 mg/ Sodium Chloride 100 ml @ 100 mls/hr Th@22 IV Last administered on 10/20/16 22:12; Admin Dose 100 MLS/HR; Start 10/06/16 at 22:00; Stop 10/27/16 at 22:59 Ondansetron HCl/ Dexamethasone/ Dextrose (Zofran Inj/ Decadron/D5W) 60 ml @ 252 mls/hr Th@2130 IV Last administered on 10/20/16 21:26; Admin Dose 252 MLS/ HR; Start 10/06/16 at 21:30; Stop 10/27/16 at 21:45 Bisacodyl (Dulcolax Supp) 10 mg DAILY PRN [place]ST[place] Last administered on 10/07/16 03:07; Admin Dose 10 MG; Start 10/07/16 at 03:00 Fidaxomicin (Dificid) 200 mg BID PO Last administered on 10/23/16 21:21; Admin Dose 200 MG; Start 10/17/16 at 10:30 Hydromorphone HCl (Dilaudid) 2 mg Q3H PRN IV PAIN Last administered on 06:14; Admin Dose 2 MG; Start 10/19/16 at 15:30 Methadone HCl (Methadone Liq (Ped)) 3 mg Q6 PO Last administered on 10/24/16 00 :50; Admin Dose 3 MG; Start 10/19/16 at 18:00 Cholestyramine Resin (Questran Light) 4 gm BID PO Last administered on 21:21; Admin Dose 4 GM; Start 10/22/16 at 21:00 JARAD CHOI MD Oct 24, 2016 09:26
[2016-10-24] MEDS: FIDAXOMICIN 200 MG TABLET PO SCH ×2 (09:42→21:45)
[2016-10-24] MEDS: MEGESTROL (40 MG/ML) 10ML CUP PO SCH ×2 (09:42→21:53)
[2016-10-24] MEDS: CALCIUM/VITAMIN D (500/200) TAB PO SCH ×2 (09:42→21:45)
[2016-10-24] MEDS: CHOLESTYRAMINE (LIGHT) 4 GM PACKET PO SCH ×2 (09:42→21:45)
[2016-10-24] MEDS: ESCITALOPRAM 10 MG TAB PO SCH (09:42)
[2016-10-24] MEDS: predniSONE 5 MG TAB PO SCH ×2 (09:47→21:57)
[2016-10-24 09:53] LABS: LYMPHOCYTES # 0.5 10^3/ul (0.8-2.9); NEUTROPHIL # 0.4 10^3/ul (1.6-7.5)
[2016-10-24] MEDS: BICALUTAMIDE 50 MG TAB PO SCH (10:05)
--- NOTE | 2016-10-24 12:15 | PN ---
DATE: 10/24/2016 INFECTIOUS DISEASE PROGRESS NOTE SUBJECTIVE: No changes overnight. The patient is lying comfortably in bed. He is afebrile, still with on and off loose stools. MICROBIOLOGY: Repeat stool for C difficile pending. ANTIMICROBIALS: . INDWELLINGS: NG tube, PICC line, White. PHYSICAL EXAMINATION: GENERAL: Elderly man who is in no distress. HEENT: Head atraumatic, normocephalic. Sclerae anicteric. Buccal mucosa dry. NECK: Supple. CHEST: Rise symmetrical. Breath sounds diminished to bases. HEART: S1, S2. ABDOMEN: Soft, bowel sounds present. EXTREMITIES: Without cyanosis. ASSESSMENT: 1. Persistent Clostridium difficile colitis. 2. Cachexia. 3. Status post methicillin-resistant Staphylococcus aureus urinary tract infection. 4. Metastatic prostate carcinoma. PLAN: The patient remains clinically unchanged. Continue present care, antibiotics. Follow GI, on cology recommendations. Continue anti-aspiration measures and follow repeat stool for C difficile. Dictated By: EUNICE GUNTER CORPORATE SECURITIES RESEARCH ANALYST for PINO MULLINS/ADRIAAN Conf#: [id number] DID#: [id number]
--- NOTE | 2016-10-24 14:26 | PN ---
Date/Time of Note Date/Time of Note DATE: 10/24/16 TIME: 14:22 Assessment/Plan VTE Prophylaxis VTE Prophylaxis Intervention: SCD's Lines/Catheters IV Catheter Type (from Nrsg): PICC Line Central line still needed: Yes Urinary Cath still in place: Yes Reason Cath still needed: urinary retention Assessment/Plan Chief Complaint/Hosp Course ASSESSMENT AND PLAN: 1. Clostridium difficile colitis. Contact isolation. Patient is followed by Dr. Schuler group from infectious disease standpoint. Patient is currently on Questran and Dificid. 2. Metastatic prostate cancer. Dr. Hernandez is following patient in oncology consultation. Continue chemotherapy and steroids. 3. Thrombocytopenia. Continue to monitor platelets. 4. Acute on chronic back pain. Dr. Ferguson is following the patient in pain management. Continue methadone and Dilaudid p.r.n. for breakthrough pain. 5. Anemia, this post blood transfusion, continue to monitor hemoglobin and hematocrit. 6. MRSA UTI, status post treatment 7. Protein calorie malnutrition, continue Megace, continue high-protein and high-calorie diet, continue tube feeding via NG tube. Continue Protonix for peptic ulcer disease prophylaxis. Further recommendations based on clinical course. Plan of care discussed with Dr. Nichols. Problems: Subjective 24 Hr Interval Summary Free Text/Dictation Patient tolerates NG tube feeding well, no nausea no vomiting, no fever. Exam/Review of Systems Vital Signs Vitals Vital Signs Date Time Temp Pulse Resp B/P Pulse Ox O2 Delivery O2 Flow Rate FiO2 10/24/16 08:39 97.9 94 20 110/70 98 10/20/16 23:50 Room Air Intake and Output 10/23/16 10/23/16 10/24/16 15:00 23:00 07:00 Intake Total 650 ml 1620 ml Output Total 1250 ml 1150 ml Balance -600 ml 470 ml Exam GENERAL: Well-developed, cachectic male, currently is awake, alert. HEENT: Head is atraumatic, normocephalic. PERRLA. NGT. NECK: Supple. No mass, no thyromegaly. LUNGS: Clear bilaterally. No rhonchi, wheezes, rales noted. HEART: Normal S1, S2. No murmurs, gallops, clicks, rubs noted. ABDOMEN: Flat, soft, nondistended, nontender. Bowel sounds present. EXTREMITIES: No edema. SKIN: There is no rash, petechiae noted. NEUROLOGIC: The patient is awake, alert, and oriented x3. Results Result Diagram: 10/24/16 0430 10/21/16 0425 Results 24 hrs Laboratory Tests Test 10/24/16 04:30 Band Neutrophils % 25.0 H Blood Morphology Comment Hematocrit 31.6 L Hemoglobin 10.8 L Lymphocytes # 0.5 L Lymphocytes % 40.0 Mean Corpuscular Hemoglobin 29.4 Mean Corpuscular Hemoglobin Concent 34.3 Mean Corpuscular Volume 85.6 Mean Platelet Volume 8.6 Monocytes # 0.0 L Monocytes % 1.0 Neutrophils # 0.4 L Neutrophils % 34.0 L Platelet Count 56 #L Red Blood Count 3.69 L Red Cell Distribution Width 16.0 H White Blood Count 1.3 #L Medications Medications Current Medications Bicalutamide (Casodex) 50 mg QAM PO Last administered on 10/24/16 10:05; Admin Dose 50 MG; Start 09/07/16 at 09:00 Docusate Sodium (Colace) 100 mg BID PRN PO CONSTIPATION Last administered on 05:22; Admin Dose 100 MG; Start 09/07/16 at 00:00; Status Future Hold Escitalopram Oxalate (Lexapro) 5 mg DAILY PO Last administered on 10/24/16 09: 42; Admin Dose 5 MG; Start 09/07/16 at 09:00 Megestrol Acetate (Megace Susp) 400 mg BID PO Last administered on 10/24/16 09: 42; Admin Dose 400 MG; Start 09/07/16 at 09:00 Methylnaltrexone [place] (Relistor) 12 mg Q48H SC Last administered on 23:54; Admin Dose 12 MG; Start 09/07/16 at 00:00; Status Future Hold Ondansetron HCl (Zofran Tab) 4 mg Q6H PRN PO NAUSEA AND/OR VOMITING Last administered on 10/19/16 18:17; Admin Dose 4 MG; Start 09/07/16 at 00:00 Acetaminophen (Tylenol Tab) 500 mg Q4H PRN PO PAIN AND OR ELEVATED TEMP Last administered on 10/05/16 15:37; Admin Dose 500 MG; Start 09/07/16 at 21:30 IV Flush (NS 10 ml) 10 ml PRN PRN IV IV PROTOCOL; Start 09/11/16 at 10:00 Calcium/Vitamin D (Oyster Shell/ Vit-D (500/200)) 1 tab BID PO Last administered on 10/24/16 09:42; Admin Dose 1 TAB; Start 09/12/16 at 14:00 IV Flush 10 ml 10 ml PRN PRN IV IV PROTOCOL; Start 09/21/16 at 12:00 Potassium Chloride/Sodium Chloride 1,000 ml @ 70 mls/hr [id number] IV Last administered on 10/24/16 09:42; Admin Dose 70 MLS/HR; Start 09/28/16 at 16:30 Ondansetron HCl/ Sodium Chloride (Zofran Inj/NS) 54 ml @ 216 mls/hr Q12H PRN IV NAUSEA AND/OR VOMITING; Start 09/29/16 at 22:00 Prednisone 5 mg 5 mg BID PO Last administered on 10/24/16 09:47; Admin Dose 5 MG; Start 09/29/16 at 21:00 Docetaxel 45 mg/ Sodium Chloride 100 ml @ 100 mls/hr Th@22 IV Last administered on 10/20/16 22:12; Admin Dose 100 MLS/HR; Start 10/06/16 at 22:00; Stop 10/27/16 at 22:59 Ondansetron HCl/ Dexamethasone/ Dextrose (Zofran Inj/ Decadron/D5W) 60 ml @ 252 mls/hr Th@2130 IV Last administered on 10/20/16 21:26; Admin Dose 252 MLS/ HR; Start 10/06/16 at 21:30; Stop 10/27/16 at 21:45 Bisacodyl (Dulcolax Supp) 10 mg DAILY PRN [place] CONSTIPATION Last administered on 10/07/16 03:07; Admin Dose 10 MG; Start 10/07/16 at 03:00 Fidaxomicin (Dificid) 200 mg BID PO Last administered on 10/24/16 09:42; Admin Dose 200 MG; Start 10/17/16 at 10:30 Hydromorphone HCl (Dilaudid) 2 mg Q3H PRN IV PAIN Last administered on 12:34; Admin Dose 2 MG; Start 10/19/16 at 15:30 Methadone HCl (Methadone Liq (Ped)) 3 mg Q6 PO Last administered on 10/24/16 12 :34; Admin Dose 3 MG; Start 10/19/16 at 18:00 Cholestyramine Resin (Questran Light) 4 gm BID PO Last administered on 09:42; Admin Dose 4 GM; Start 10/22/16 at 21:00 SREE GRIFFITH Oct 24, 2016 14:26
--- NOTE | 2016-10-24 18:40 | CONS ---
Date/Time of Note Date/Time of Note DATE: 10/24/16 TIME: 18:39 Assessment/Plan Assessment/Plan Additional Assessment/Plan Impression: 1. Clostridium difficile colitis. 2. Abdominal pain: worsening, associated with nausea and vomiting. ddx include C. Diff colitis vs side effects from chemotherapy vs gastritis, duodenitis, esophagitis. 3. anemia 4. Metastatic prostate cancer. Dr. Hernandez is following patient in oncology consultation. Continue chemotherapy and steroids. 5. MRSA 6. Abnormal alkaline po4 secondary to jose mets. 7.diarrhea secondary to C.Difficile,better Recommendations: 1. Continue vancomycin for C. Diff. Consider fidaxomicin per ID. 2. f/uCMV PCR as pt is immunosuppressed and to r/o possible CMV colitis/ enteritis as cause of diarrhea 3. continue pain control 4. ordered occult stool blood negative 5. abx per ID 6. d/c Protonix ,it will aggravate 7. continue other supportive care per pcp and other consultants 8.Questran,increase dose 9,enteral feeding Consultation Date/Type/Reason Admit Date/Time Sep 06, 2016 at 22:01 Initial Consult Date 09/08/16 Type of Consultation: [facility] Referring Provider: TIMOTHY MARAVILLA MD 24 HR Interval Summary Constitutional: improved Exam/Review of Systems Vital Signs Vitals Vital Signs Date Time Temp Pulse Resp B/P Pulse Ox O2 Delivery O2 Flow Rate FiO2 10/24/16 08:39 97.9 94 20 110/70 98 10/20/16 23:50 Room Air Intake and Output 10/23/16 10/23/16 10/24/16 15:00 23:00 07:00 Intake Total 650 ml 1620 ml Output Total 1250 ml 1150 ml Balance -600 ml 470 ml Exam Constitutional: alert, oriented, well developed Psych: nl mood/affect, no complaints Head: atraumatic, normocephalic Eyes: EOMI, PERRL, nl conjunctiva, nl lids, nl sclera ENMT: nl external ears & nose, nl lips & teeth, nl nasal mucosa & septum Neck: non-tender, supple Respiratory: clear to auscultation, normal air movement Cardiovascular: nl pulses, regular rate and rhythm Gastrointestinal: nl liver, spleen, non-tender, soft Musculoskeletal: nl extremities to inspection, nl gait and stance Extremities: normal pulses 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: NATURAL SCIENCE CURATOR II-XII intact, nl mental status, nl speech, nl strength Skin: nl turgor, No rash or lesions Lymph: nl lymph nodes Results Result Diagram: 10/24/16 0430 10/21/16 0425 Results 24 hrs Laboratory Tests Test 10/24/16 04:30 Band Neutrophils % 25.0 H Blood Morphology Comment Hematocrit 31.6 L Hemoglobin 10.8 L Lymphocytes # 0.5 L Lymphocytes % 40.0 Mean Corpuscular Hemoglobin 29.4 Mean Corpuscular Hemoglobin Concent 34.3 Mean Corpuscular Volume 85.6 Mean Platelet Volume 8.6 Monocytes # 0.0 L Monocytes % 1.0 Neutrophils # 0.4 L Neutrophils % 34.0 L Platelet Count 56 #L Red Blood Count 3.69 L Red Cell Distribution Width 16.0 H White Blood Count 1.3 #L Medications Medications Current Medications Bicalutamide (Casodex) 50 mg QAM PO Last administered on 10/24/16 10:05; Admin Dose 50 MG; Start 09/07/16 at 09:00 Docusate Sodium (Colace) 100 mg BID PRN PO CONSTIPATION Last administered on 05:22; Admin Dose 100 MG; Start 09/07/16 at 00:00; Status Future Hold Escitalopram Oxalate (Lexapro) 5 mg DAILY PO Last administered on 10/24/16 09: 42; Admin Dose 5 MG; Start 09/07/16 at 09:00 Megestrol Acetate (Megace Susp) 400 mg BID PO Last administered on 10/24/16 09: 42; Admin Dose 400 MG; Start 09/07/16 at 09:00 Methylnaltrexone [place] (Relistor) 12 mg Q48H SC Last administered on 23:54; Admin Dose 12 MG; Start 09/07/16 at 00:00; Status Future Hold Ondansetron HCl (Zofran Tab) 4 mg Q6H PRN PO NAUSEA AND/OR VOMITING Last administered on 10/19/16 18:17; Admin Dose 4 MG; Start 09/07/16 at 00:00 Acetaminophen (Tylenol Tab) 500 mg Q4H PRN PO PAIN AND OR ELEVATED TEMP Last administered on 10/05/16 15:37; Admin Dose 500 MG; Start 09/07/16 at 21:30 IV Flush (NS 10 ml) 10 ml PRN PRN IV IV PROTOCOL; Start 09/11/16 at 10:00 Calcium/Vitamin D (Oyster Shell/ Vit-D (500/200)) 1 tab BID PO Last administered on 10/24/16 09:42; Admin Dose 1 TAB; Start 09/12/16 at 14:00 IV Flush 10 ml 10 ml PRN PRN IV IV PROTOCOL; Start 09/21/16 at 12:00 Potassium Chloride/Sodium Chloride 1,000 ml @ 40 mls/hr Q24H IV Last administered on 10/24/16 09:42; Admin Dose 70 MLS/HR; Start 09/28/16 at 16:30 Ondansetron HCl/ Sodium Chloride (Zofran Inj/NS) 54 ml @ 216 mls/hr Q12H PRN IV NAUSEA AND/OR VOMITING; Start 09/29/16 at 22:00 Prednisone 5 mg 5 mg BID PO Last administered on 10/24/16 09:47; Admin Dose 5 MG; Start 09/29/16 at 21:00 Docetaxel 45 mg/ Sodium Chloride 100 ml @ 100 mls/hr Th@22 IV Last administered on 10/20/16 22:12; Admin Dose 100 MLS/HR; Start 10/06/16 at 22:00; Stop 10/27/16 at 22:59 Ondansetron HCl/ Dexamethasone/ Dextrose (Zofran Inj/ Decadron/D5W) 60 ml @ 252 mls/hr Th@2130 IV Last administered on 10/20/16 21:26; Admin Dose 252 MLS/ HR; Start 10/06/16 at 21:30; Stop 10/27/16 at 21:45 Bisacodyl (Dulcolax Supp) 10 mg DAILY PRN [place] CONSTIPATION Last administered on 10/07/16 03:07; Admin Dose 10 MG; Start 10/07/16 at 03:00 Fidaxomicin (Dificid) 200 mg BID PO Last administered on 10/24/16 09:42; Admin Dose 200 MG; Start 10/17/16 at 10:30 Hydromorphone HCl (Dilaudid) 2 mg Q3H PRN IV PAIN Last administered on 17:27; Admin Dose 2 MG; Start 10/19/16 at 15:30 Methadone HCl (Methadone Liq (Ped)) 3 mg Q6 PO Last administered on 10/24/16 17 :27; Admin Dose 3 MG; Start 10/19/16 at 18:00 Cholestyramine Resin (Questran Light) 4 gm BID PO Last administered on 09:42; Admin Dose 4 GM; Start 10/22/16 at 21:00 MICHAEL COELHO MD Oct 24, 2016 18:40
[2016-10-24 20:19] VITALS: BP 123/78; RESP 18
[2016-10-25] MEDS: NS + KCL 20 MEQ 1,000 ML IV SCH (00:15)
[2016-10-25] MEDS: METHADONE (1 MG/1 ML PO SYG) PO SCH ×4 (00:58→18:00)
[2016-10-25] MEDS: HYDROmorphONE 2 MG/ML SYG IV PRN ×6 (04:46→21:17)
[2016-10-25 05:45] LABS: HEMATOCRIT 30.2 % (42.0-52.0); HEMOGLOBIN 10.4 g/dl (14.0-18.0); MEAN CORPUSCULAR HEMOGLOBIN 29.3 pg (29.0-33.0); MEAN CORPUSCULAR HGB CONC 34.6 g/dl (32.0-37.0); MEAN CORPUSCULAR VOLUME 84.5 fl (82.0-101.0); MEAN PLATELET VOLUME 8.3 fl (7.4-10.4); PLATELET COUNT 52 10^3/UL (140-440); RED BLOOD COUNT 3.57 10^6/ul (4.70-6.10); RED CELL DISTRIBUTION WIDTH 16.1 % (11.5-14.5); UNCORRECTED WBC 1.3 10^3/ul (4.8-10.8); WHITE BLOOD COUNT 1.3 10^3/ul (4.8-10.8)
[2016-10-25 05:55] LABS: POTASSIUM 4.3 mmol/L (3.5-5.1)
[2016-10-25 05:57] LABS: CREATININE 0.27 mg/dl (0.61-1.24)
[2016-10-25 05:58] LABS: CALCIUM 7.2 mg/dl (8.4-10.2)
[2016-10-25 06:22] LABS: CONDITION 1; LH ANALYZER COMMENTS 1
[2016-10-25] MEDS: MEGESTROL (40 MG/ML) 10ML CUP PO SCH ×2 (07:59→21:17)
[2016-10-25] MEDS: predniSONE 5 MG TAB PO SCH ×2 (08:00→21:17)
[2016-10-25] MEDS: CHOLESTYRAMINE (LIGHT) 4 GM PACKET PO SCH ×2 (08:00→21:17)
[2016-10-25] MEDS: CALCIUM/VITAMIN D (500/200) TAB PO SCH ×2 (08:01→21:17)
[2016-10-25 08:04] VITALS: BP 125/75; RESP 14
[2016-10-25 09:00] VITALS: BP 120/70; PULSE 99; RESP 18
[2016-10-25] MEDS: ESCITALOPRAM 10 MG TAB PO SCH (09:00)
[2016-10-25] MEDS: FIDAXOMICIN 200 MG TABLET PO SCH ×2 (09:00→21:17)
[2016-10-25] MEDS: BICALUTAMIDE 50 MG TAB PO SCH (10:19)
--- NOTE | 2016-10-25 10:19 | CONS ---
Date/Time of Note Date/Time of Note DATE: 10/25/16 TIME: 10:17 Assessment/Plan Assessment/Plan Chief Complaint/Hosp Course Metastatic prostate cancer. FAMILY CONFERENCE RE DX, PROGNOSIS AND TREATMENT OPTIONS RE: chemotherapy and steroids - PER PROTOCOL Chemotherapy Docetaxel (Taxotere) 30 mg/m2 IV over 30 minutes once per day on days 1, 8, 15, 22, 29 Prednisone (Sterapred) 5 mg PO BID on days 1 to 42 Supportive medications Dexamethasone (Decadron) 8 mg (route not specified) once 1 hour before Docetaxel (Taxotere) Antiemetics "according to local practice" 42-day cycle for up to 5 cycles NEUTROPENIA NEUPOGEN ANEMIA POST PRBC MONITOR CLOSELY OBSERVE FOR BLEEDING AND HEMOLYSIS Thrombocytopenia. Continue to monitor platelets. transfuse as needed PANCYTOPENIA MONITOR DECONDITIONING PT Acute on chronic back pain. PAIN CONTROL C DIFF COLITIS ATB PER ID Problems: Consultation Date/Type/Reason Admit Date/Time Sep 06, 2016 at 22:01 Initial Consult Date 09/08/16 Type of Consultation: hemeon Referring Provider: TIMOTHY MARAVILLA MD 24 HR Interval Summary Free Text/Dictation neutropenic in the setting of CDIFF WILL START NEUPOGEN Exam/Review of Systems Vital Signs Vitals Vital Signs Date Time Temp Pulse Resp B/P Pulse Ox O2 Delivery O2 Flow Rate FiO2 10/25/16 09:00 98.2 99 18 120/70 97 Room Air Intake and Output 10/24/16 10/24/16 10/25/16 15:00 23:00 07:00 Intake Total 1320 ml Output Total 1200 ml Balance 120 ml Exam Constitutional: alert, oriented, well developed Psych: nl mood/affect, no complaints Head: atraumatic, normocephalic Eyes: EOMI, PERRL, nl conjunctiva, nl lids, nl sclera ENMT: nl external ears & nose, nl lips & teeth, nl nasal mucosa & septum Neck: non-tender, supple Respiratory: clear to auscultation, normal air movement Cardiovascular: nl pulses, regular rate and rhythm Gastrointestinal: nl liver, spleen, non-tender, soft Musculoskeletal: nl extremities to inspection, nl gait and stance Extremities: normal pulses 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: HEALTH INFORMATION CLERK II-XII intact, nl mental status, nl speech, nl strength Skin: nl turgor, No rash or lesions Lymph: nl lymph nodes Results Result Diagram: 10/25/16 0440 10/25/16 0440 Results 24 hrs Laboratory Tests Test 10/25/16 04:40 Anion Gap 10 Blood Morphology Comment Blood Urea Nitrogen 7 Calcium Level 7.2 L Carbon Dioxide Level 24 Chloride Level 98 Creatinine 0.27 L Glucose Level 142 Hematocrit 30.2 L Hemoglobin 10.4 L Mean Corpuscular Hemoglobin 29.3 Mean Corpuscular Hemoglobin Concent 34.6 Mean Corpuscular Volume 84.5 Mean Platelet Volume 8.3 Platelet Count 52 L Potassium Level 4.3 Red Blood Count 3.57 L Red Cell Distribution Width 16.1 H Sodium Level 128 L White Blood Count 1.3 L Medications Medications Current Medications Bicalutamide (Casodex) 50 mg QAM PO Last administered on 10/24/16 10:05; Admin Dose 50 MG; Start 09/07/16 at 09:00 Docusate Sodium (Colace) 100 mg BID PRN PO CONSTIPATION Last administered on 05:22; Admin Dose 100 MG; Start 09/07/16 at 00:00; Status Future Hold Escitalopram Oxalate (Lexapro) 5 mg DAILY PO Last administered on 10/24/16 09: 42; Admin Dose 5 MG; Start 09/07/16 at 09:00 Megestrol Acetate (Megace Susp) 400 mg BID PO Last administered on 10/25/16 07: 59; Admin Dose 400 MG; Start 09/07/16 at 09:00 Methylnaltrexone [place] (Relistor) 12 mg Q48H SC Last administered on 23:54; Admin Dose 12 MG; Start 09/07/16 at 00:00; Status Future Hold Ondansetron HCl (Zofran Tab) 4 mg Q6H PRN PO NAUSEA AND/OR VOMITING Last administered on 10/19/16 18:17; Admin Dose 4 MG; Start 09/07/16 at 00:00 Acetaminophen (Tylenol Tab) 500 mg Q4H PRN PO PAIN AND OR ELEVATED TEMP Last administered on 10/05/16 15:37; Admin Dose 500 MG; Start 09/07/16 at 21:30 IV Flush (NS 10 ml) 10 ml PRN PRN IV IV PROTOCOL; Start 09/11/16 at 10:00 Calcium/Vitamin D (Oyster Shell/ Vit-D (500/200)) 1 tab BID PO Last administered on 10/25/16 08:01; Admin Dose 1 TAB; Start 09/12/16 at 14:00 IV Flush 10 ml 10 ml PRN PRN IV IV PROTOCOL; Start 09/21/16 at 12:00 Potassium Chloride/Sodium Chloride 1,000 ml @ 40 mls/hr Q24H IV Last administered on 10/24/16 21:59; Admin Dose 40 MLS/HR; Start 09/28/16 at 16:30 Ondansetron HCl/ Sodium Chloride (Zofran Inj/NS) 54 ml @ 216 mls/hr Q12H PRN IV NAUSEA AND/OR VOMITING; Start 09/29/16 at 22:00 Prednisone 5 mg 5 mg BID PO Last administered on 10/25/16 08:00; Admin Dose 5 MG; Start 09/29/16 at 21:00 Docetaxel 45 mg/ Sodium Chloride 100 ml @ 100 mls/hr Th@22 IV Last administered on 10/20/16 22:12; Admin Dose 100 MLS/HR; Start 10/06/16 at 22:00; Stop 10/27/16 at 22:59 Ondansetron HCl/ Dexamethasone/ Dextrose (Zofran Inj/ Decadron/D5W) 60 ml @ 252 mls/hr Th@2130 IV Last administered on 10/20/16 21:26; Admin Dose 252 MLS/ HR; Start 10/06/16 at 21:30; Stop 10/27/16 at 21:45 Bisacodyl (Dulcolax Supp) 10 mg DAILY PRN [place] CONSTIPATION Last administered on 10/07/16 03:07; Admin Dose 10 MG; Start 10/07/16 at 03:00 Fidaxomicin (Dificid) 200 mg BID PO Last administered on 10/24/16 21:45; Admin Dose 200 MG; Start 10/17/16 at 10:30 Hydromorphone HCl (Dilaudid) 2 mg Q3H PRN IV PAIN Last administered on 07:58; Admin Dose 2 MG; Start 10/19/16 at 15:30 Methadone HCl (Methadone Liq (Ped)) 3 mg Q6 PO Last administered on 10/25/16 06 :36; Admin Dose 3 MG; Start 10/19/16 at 18:00 Cholestyramine Resin (Questran Light) 4 gm BID PO Last administered on t 08:00; Admin Dose 4 GM; Start 10/22/16 at 21:00 JARAD CHOI MD Oct 25, 2016 10:19
[2016-10-25 11:23] LABS: LYMPHOCYTES # 0.6 10^3/ul (0.8-2.9); MONOCYTE # 0.1 10^3/ul (0.3-0.9); NEUTROPHIL # 0.4 10^3/ul (1.6-7.5)
[2016-10-25 11:25] LABS: PLATELET ESTIMATE PLT APPEAR DECREASED
--- NOTE | 2016-10-25 13:07 | CONS ---
Date/Time of Note Date/Time of Note DATE: 10/25/16 TIME: 13:06 Assessment/Plan Assessment/Plan Chief Complaint/Hosp Course SUBJECTIVE: No acute events, awake, no fevers, nad ANTIMICROBIALS: 1. Dificid. INDWELLINGS: White, PICC, NG tube. PHYSICAL EXAMINATION: GENERAL: Cachectic, elderly man, in no distress. HEENT: Head atraumatic, normocephalic. Sclerae anicteric. Buccal mucosa dry. NECK: Supple, trachea midline. CHEST: Chest rise is symmetrical. Breath sounds diminished to the bases. HEART: S1, S2. ABDOMEN: Soft, bowel tones present. EXTREMITIES: Without cyanosis. ASSESSMENT: 1. Clostridium difficile colitis, CMV DNA by PCR was negative. 2. Metastatic prostate carcinoma. 3. Cachexia. 4. Status post methicillin-resistant Staphylococcus aureus urinary tract infection. PLAN: The patient remains unchanged, repeat stool cx + C dif, pt is being seen by GI, plan dc Protonix, will start on PO Vanco and Flagyl, continue abx, anti- aspiration measures. DW staff Problems: Consultation Date/Type/Reason Admit Date/Time Sep 06, 2016 at 22:01 Initial Consult Date 09/08/16 Type of Consultation: ID Referring Provider: TIMOTHY MARAVILLA MD Exam/Review of Systems Vital Signs Vitals Vital Signs Date Time Temp Pulse Resp B/P Pulse Ox O2 Delivery O2 Flow Rate FiO2 10/25/16 09:00 98.2 99 18 120/70 97 Room Air Intake and Output 10/24/16 10/24/16 10/25/16 15:00 23:00 07:00 Intake Total 1320 ml Output Total 1200 ml Balance 120 ml Results Result Diagram: 10/25/16 0440 10/25/16 0440 Results 24 hrs Laboratory Tests Test 10/25/16 04:40 Anion Gap 10 Band Neutrophils % 12.0 H Blood Morphology Comment Blood Urea Nitrogen 7 Calcium Level 7.2 L Carbon Dioxide Level 24 Chloride Level 98 Creatinine 0.27 L Glucose Level 142 Hematocrit 30.2 L Hemoglobin 10.4 L Lymphocytes # 0.6 L Lymphocytes % 45.0 Mean Corpuscular Hemoglobin 29.3 Mean Corpuscular Hemoglobin Concent 34.6 Mean Corpuscular Volume 84.5 Mean Platelet Volume 8.3 Monocytes # 0.1 L Monocytes % 9.0 Myelocytes # 0.0 Myelocytes % 2.0 H Neutrophils # 0.4 L Neutrophils % 32.0 L Nucleated Red Blood Cells % 0.0 Platelet Count 52 L Platelet Estimate PLT APPEAR DECREASED Potassium Level 4.3 Red Blood Count 3.57 L Red Cell Distribution Width 16.1 H Sodium Level 128 L White Blood Count 1.3 L Medications Medications Current Medications Bicalutamide (Casodex) 50 mg QAM PO Last administered on 10/25/16 10:19; Admin Dose 50 MG; Start 09/07/16 at 09:00 Docusate Sodium (Colace) 100 mg BID PRN PO CONSTIPATION Last administered on 05:22; Admin Dose 100 MG; Start 09/07/16 at 00:00; Status Future Hold Escitalopram Oxalate (Lexapro) 5 mg DAILY PO Last administered on 10/25/16 09: 00; Admin Dose 5 MG; Start 09/07/16 at 09:00 Megestrol Acetate (Megace Susp) 400 mg BID PO Last administered on 10/25/16 07: 59; Admin Dose 400 MG; Start 09/07/16 at 09:00 Methylnaltrexone [place] (Relistor) 12 mg Q48H SC Last administered on 23:54; Admin Dose 12 MG; Start 09/07/16 at 00:00; Status Future Hold Ondansetron HCl (Zofran Tab) 4 mg Q6H PRN PO NAUSEA AND/OR VOMITING Last administered on 10/19/16 18:17; Admin Dose 4 MG; Start 09/07/16 at 00:00 Acetaminophen (Tylenol Tab) 500 mg Q4H PRN PO PAIN AND OR ELEVATED TEMP Last administered on 10/05/16 15:37; Admin Dose 500 MG; Start 09/07/16 at 21:30 IV Flush (NS 10 ml) 10 ml PRN PRN IV IV PROTOCOL; Start 09/11/16 at 10:00 Calcium/Vitamin D (Oyster Shell/ Vit-D (500/200)) 1 tab BID PO Last administered on 10/25/16 08:01; Admin Dose 1 TAB; Start 09/12/16 at 14:00 IV Flush 10 ml 10 ml PRN PRN IV IV PROTOCOL; Start 09/21/16 at 12:00 Potassium Chloride/Sodium Chloride 1,000 ml @ 40 mls/hr Q24H IV Last administered on 10/24/16 21:59; Admin Dose 40 MLS/HR; Start 09/28/16 at 16:30 Ondansetron HCl/ Sodium Chloride (Zofran Inj/NS) 54 ml @ 216 mls/hr Q12H PRN IV NAUSEA AND/OR VOMITING; Start 09/29/16 at 22:00 Prednisone 5 mg 5 mg BID PO Last administered on 10/25/16 08:00; Admin Dose 5 MG; Start 09/29/16 at 21:00 Docetaxel 45 mg/ Sodium Chloride 100 ml @ 100 mls/hr Th@22 IV Last administered on 10/20/16 22:12; Admin Dose 100 MLS/HR; Start 10/06/16 at 22:00; Stop 10/27/16 at 22:59 Ondansetron HCl/ Dexamethasone/ Dextrose (Zofran Inj/ Decadron/D5W) 60 ml @ 252 mls/hr Th@2130 IV Last administered on 10/20/16 21:26; Admin Dose 252 MLS/ HR; Start 10/06/16 at 21:30; Stop 10/27/16 at 21:45 Bisacodyl (Dulcolax Supp) 10 mg DAILY PRN [place] CONSTIPATION Last administered on 10/07/16 03:07; Admin Dose 10 MG; Start 10/07/16 at 03:00 Fidaxomicin (Dificid) 200 mg BID PO Last administered on 10/25/16 09:00; Admin Dose 200 MG; Start 10/17/16 at 10:30 Hydromorphone HCl (Dilaudid) 2 mg Q3H PRN IV PAIN Last administered on 11:14; Admin Dose 2 MG; Start 10/19/16 at 15:30 Methadone HCl (Methadone Liq (Ped)) 3 mg Q6 PO Last administered on 10/25/16 06 :36; Admin Dose 3 MG; Start 10/19/16 at 18:00 Cholestyramine Resin 4 gm 4 gm BID PO Last administered on 10/25/16 08:00; Admin Dose 4 GM; Start 10/22/16 at 21:00 Filgrastim/ Dextrose (Neupogen/D5W) 51 ml @ 102 mls/hr DAILY@17 IVPB ; Start at 17:00 EUNICE GUNTER NP Oct 25, 2016 13:07
--- NOTE | 2016-10-25 14:13 | PN ---
Date/Time of Note Date/Time of Note DATE: 10/25/16 TIME: 14:09 Assessment/Plan VTE Prophylaxis VTE Prophylaxis Intervention: SCD's Lines/Catheters IV Catheter Type (from Nrsg): PICC Line Central line still needed: Yes Urinary Cath still in place: Yes Reason Cath still needed: urinary retention Assessment/Plan Chief Complaint/Hosp Course ASSESSMENT AND PLAN: 1. Clostridium difficile colitis. Contact isolation. Patient is followed by Dr. Schuler group from infectious disease standpoint. Patient is currently on Questran, Dificid, Vanco and Flagyl. 2. Metastatic prostate cancer. Dr. Hernandez is following patient in oncology consultation. Continue chemotherapy and steroids. 3. Thrombocytopenia. Continue to monitor platelets. 4. Acute on chronic back pain. Dr. Ferguson is following the patient in pain management. Continue methadone and Dilaudid p.r.n. for breakthrough pain. 5. Anemia, this post blood transfusion, continue to monitor hemoglobin and hematocrit. 6. MRSA UTI, status post treatment 7. Protein calorie malnutrition, continue Megace, continue high-protein and high-calorie diet, continue tube feeding via NG tube. 8. Hyponatremia, start IV fluids. Further recommendations based on clinical course. Plan of care discussed with Dr. Nichols. Problems: Subjective 24 Hr Interval Summary Free Text/Dictation Patient tolerates G-tube feeding well, continues to have diarrhea, no nausea vomiting. Exam/Review of Systems Vital Signs Vitals Vital Signs Date Time Temp Pulse Resp B/P Pulse Ox O2 Delivery O2 Flow Rate FiO2 10/25/16 09:00 98.2 99 18 120/70 97 Room Air Intake and Output 10/24/16 10/24/16 10/25/16 15:00 23:00 07:00 Intake Total 1320 ml Output Total 1200 ml Balance 120 ml Exam GENERAL: Well-developed, cachectic male, currently is awake, alert. HEENT: Head is atraumatic, normocephalic. PERRLA. NGT. NECK: Supple. No mass, no thyromegaly. LUNGS: Clear bilaterally. No rhonchi, wheezes, rales noted. HEART: Normal S1, S2. No murmurs, gallops, clicks, rubs noted. ABDOMEN: Flat, soft, nondistended, nontender. Bowel sounds present. EXTREMITIES: No edema. SKIN: There is no rash, petechiae noted. NEUROLOGIC: The patient is awake, alert, and oriented x3. Results Result Diagram: 10/25/16 0440 10/25/16 0440 Results 24 hrs Laboratory Tests Test 10/25/16 04:40 Anion Gap 10 Band Neutrophils % 12.0 H Blood Morphology Comment Blood Urea Nitrogen 7 Calcium Level 7.2 L Carbon Dioxide Level 24 Chloride Level 98 Creatinine 0.27 L Glucose Level 142 Hematocrit 30.2 L Hemoglobin 10.4 L Lymphocytes # 0.6 L Lymphocytes % 45.0 Mean Corpuscular Hemoglobin 29.3 Mean Corpuscular Hemoglobin Concent 34.6 Mean Corpuscular Volume 84.5 Mean Platelet Volume 8.3 Monocytes # 0.1 L Monocytes % 9.0 Myelocytes # 0.0 Myelocytes % 2.0 H Neutrophils # 0.4 L Neutrophils % 32.0 L Nucleated Red Blood Cells % 0.0 Platelet Count 52 L Platelet Estimate PLT APPEAR DECREASED Potassium Level 4.3 Red Blood Count 3.57 L Red Cell Distribution Width 16.1 H Sodium Level 128 L White Blood Count 1.3 L Medications Medications Current Medications Bicalutamide (Casodex) 50 mg QAM PO Last administered on 10/25/16 10:19; Admin Dose 50 MG; Start 09/07/16 at 09:00 Docusate Sodium (Colace) 100 mg BID PRN PO CONSTIPATION Last administered on 05:22; Admin Dose 100 MG; Start 09/07/16 at 00:00; Status Future Hold Escitalopram Oxalate (Lexapro) 5 mg DAILY PO Last administered on 10/25/16 09: 00; Admin Dose 5 MG; Start 09/07/16 at 09:00 Megestrol Acetate (Megace Susp) 400 mg BID PO Last administered on 10/25/16 07: 59; Admin Dose 400 MG; Start 09/07/16 at 09:00 Methylnaltrexone [place] (Relistor) 12 mg Q48H SC Last administered on 23:54; Admin Dose 12 MG; Start 09/07/16 at 00:00; Status Future Hold Ondansetron HCl (Zofran Tab) 4 mg Q6H PRN PO NAUSEA AND/OR VOMITING Last administered on 10/19/16 18:17; Admin Dose 4 MG; Start 09/07/16 at 00:00 Acetaminophen (Tylenol Tab) 500 mg Q4H PRN PO PAIN AND OR ELEVATED TEMP Last administered on 10/05/16 15:37; Admin Dose 500 MG; Start 09/07/16 at 21:30 IV Flush (NS 10 ml) 10 ml PRN PRN IV IV PROTOCOL; Start 09/11/16 at 10:00 Calcium/Vitamin D (Oyster Shell/ Vit-D (500/200)) 1 tab BID PO Last administered on 10/25/16 08:01; Admin Dose 1 TAB; Start 09/12/16 at 14:00 IV Flush 10 ml 10 ml PRN PRN IV IV PROTOCOL; Start 09/21/16 at 12:00 Potassium Chloride/Sodium Chloride 1,000 ml @ 40 mls/hr Q24H IV Last administered on 10/24/16 21:59; Admin Dose 40 MLS/HR; Start 09/28/16 at 16:30 Ondansetron HCl/ Sodium Chloride (Zofran Inj/NS) 54 ml @ 216 mls/hr Q12H PRN IV NAUSEA AND/OR VOMITING; Start 09/29/16 at 22:00 Prednisone 5 mg 5 mg BID PO Last administered on 10/25/16 08:00; Admin Dose 5 MG; Start 09/29/16 at 21:00 Docetaxel 45 mg/ Sodium Chloride 100 ml @ 100 mls/hr Th@22 IV Last administered on 10/20/16 22:12; Admin Dose 100 MLS/HR; Start 10/06/16 at 22:00; Stop 10/27/16 at 22:59 Ondansetron HCl/ Dexamethasone/ Dextrose (Zofran Inj/ Decadron/D5W) 60 ml @ 252 mls/hr Th@2130 IV Last administered on 10/20/16 21:26; Admin Dose 252 MLS/ HR; Start 10/06/16 at 21:30; Stop 10/27/16 at 21:45 Bisacodyl (Dulcolax Supp) 10 mg DAILY PRN [place] CONSTIPATION Last administered on 10/07/16 03:07; Admin Dose 10 MG; Start 10/07/16 at 03:00 Fidaxomicin (Dificid) 200 mg BID PO Last administered on 10/25/16 09:00; Admin Dose 200 MG; Start 10/17/16 at 10:30 Hydromorphone HCl (Dilaudid) 2 mg Q3H PRN IV PAIN Last administered on 13:24; Admin Dose 2 MG; Start 10/19/16 at 15:30 Methadone HCl (Methadone Liq (Ped)) 3 mg Q6 PO Last administered on 10/25/16 13 :24; Admin Dose 3 MG; Start 10/19/16 at 18:00 Cholestyramine Resin 4 gm 4 gm BID PO Last administered on 10/25/16 08:00; Admin Dose 4 GM; Start 10/22/16 at 21:00 Filgrastim/ Dextrose (Neupogen/D5W) 51 ml @ 102 mls/hr DAILY@17 IVPB ; Start at 17:00 Vancomycin HCl (Vancomycin Oral Syringe) 250 mg Q6 PO ; Start 10/25/16 at 18:00 Metronidazole (Flagyl) 500 mg Q8 PO ; Start 10/25/16 at 14:00 SREE GRIFFITH Oct 25, 2016 14:13
[2016-10-25] MEDS: metroNIDAZOLE 500 MG TAB PO SCH ×2 (16:34→21:17)
[2016-10-25] MEDS: FILGRASTIM 300 MCG in DEXTROSE 5% 50 ML IVPB SCH (18:37)
[2016-10-25] MEDS: VANCOMYCIN HCL 250 MG/5ML POSYG PO SCH (18:41)
[2016-10-25] MEDS: SOD CHLORIDE 0.9% 1,000 ML IV SCH (18:41)
--- NOTE | 2016-10-25 19:59 | CONS ---
Date/Time of Note Date/Time of Note DATE: 10/25/16 TIME: 19:58 Assessment/Plan Assessment/Plan Additional Assessment/Plan Impression: 1. Clostridium difficile colitis. 2. Abdominal pain: worsening, associated with nausea and vomiting. ddx include C. Diff colitis vs side effects from chemotherapy vs gastritis, duodenitis, esophagitis. 3. anemia 4. Metastatic prostate cancer. Dr. Hernandez is following patient in oncology consultation. Continue chemotherapy and steroids. 5. MRSA 6. Abnormal alkaline po4 secondary to jose mets. 7.diarrhea secondary to C.Difficile,better 8.neutropenia Recommendations: 1. Continue vancomycin for C. Diff. Consider fidaxomicin per ID. 2. f/uCMV PCR as pt is immunosuppressed and to r/o possible CMV colitis/ enteritis as cause of diarrhea 3. continue pain control 4. ordered occult stool blood negative 5. abx per ID 6. d/c Protonix ,it will aggravate 7. continue other supportive care per pcp and other consultants 8.Questran,increase dose 9,enteral feeding Consultation Date/Type/Reason Admit Date/Time Sep 06, 2016 at 22:01 Initial Consult Date 09/08/16 Type of Consultation: ID Referring Provider: TIMOTHY MARAVILLA MD 24 HR Interval Summary Constitutional: disoriented Exam/Review of Systems Vital Signs Vitals Vital Signs Date Time Temp Pulse Resp B/P Pulse Ox O2 Delivery O2 Flow Rate FiO2 10/25/16 09:00 98.2 99 18 120/70 97 Room Air Intake and Output 10/24/16 10/24/16 10/25/16 15:00 23:00 07:00 Intake Total 1320 ml Output Total 1200 ml Balance 120 ml Exam Constitutional: alert, oriented, well developed Psych: nl mood/affect, no complaints Head: atraumatic, normocephalic Eyes: EOMI, PERRL, nl conjunctiva, nl lids, nl sclera ENMT: nl external ears & nose, nl lips & teeth, nl nasal mucosa & septum Neck: non-tender, supple Respiratory: clear to auscultation, normal air movement Cardiovascular: nl pulses, regular rate and rhythm Gastrointestinal: nl liver, spleen, non-tender, soft Musculoskeletal: nl extremities to inspection, nl gait and stance Extremities: normal pulses 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: LOW PRESSURE BOILER TENDER II-XII intact, nl mental status, nl speech, nl strength Skin: nl turgor, No rash or lesions Lymph: nl lymph nodes Results Result Diagram: 10/25/1643910/25/16439 Results 24 hrs Laboratory Tests Test 10/25/16 04:40 Anion Gap 10 Band Neutrophils % 12.0 H Blood Morphology Comment Blood Urea Nitrogen 7 Calcium Level 7.2 L Carbon Dioxide Level 24 Chloride Level 98 Creatinine 0.27 L Glucose Level 142 Hematocrit 30.2 L Hemoglobin 10.4 L Lymphocytes # 0.6 L Lymphocytes % 45.0 Mean Corpuscular Hemoglobin 29.3 Mean Corpuscular Hemoglobin Concent 34.6 Mean Corpuscular Volume 84.5 Mean Platelet Volume 8.3 Monocytes # 0.1 L Monocytes % 9.0 Myelocytes # 0.0 Myelocytes % 2.0 H Neutrophils # 0.4 L Neutrophils % 32.0 L Nucleated Red Blood Cells % 0.0 Platelet Count 52 L Platelet Estimate PLT APPEAR DECREASED Potassium Level 4.3 Red Blood Count 3.57 L Red Cell Distribution Width 16.1 H Sodium Level 128 L White Blood Count 1.3 L Medications Medications Current Medications Bicalutamide (Casodex) 50 mg QAM PO Last administered on 10/25/16 10:19; Admin Dose 50 MG; Start 09/07/16 at 09:00 Docusate Sodium (Colace) 100 mg BID PRN PO CONSTIPATION Last administered on 05:22; Admin Dose 100 MG; Start 09/07/16 at 00:00; Status Future Hold Escitalopram Oxalate (Lexapro) 5 mg DAILY PO Last administered on 10/25/16 09: 00; Admin Dose 5 MG; Start 09/07/16 at 09:00 Megestrol Acetate (Megace Susp) 400 mg BID PO Last administered on 10/25/16 07: 59; Admin Dose 400 MG; Start 09/07/16 at 09:00 Methylnaltrexone [place] (Relistor) 12 mg Q48H SC Last administered on 23:54; Admin Dose 12 MG; Start 09/07/16 at 00:00; Status Future Hold Ondansetron HCl (Zofran Tab) 4 mg Q6H PRN PO NAUSEA AND/OR VOMITING Last administered on 10/19/16 18:17; Admin Dose 4 MG; Start 09/07/16 at 00:00 Acetaminophen (Tylenol Tab) 500 mg Q4H PRN PO PAIN AND OR ELEVATED TEMP Last administered on 10/05/16 15:37; Admin Dose 500 MG; Start 09/07/16 at 21:30 IV Flush (NS 10 ml) 10 ml PRN PRN IV IV PROTOCOL; Start 09/11/16 at 10:00 Calcium/Vitamin D ([place]/ Vit-D (500/200)) 1 tab BID PO Last administered on 10/25/16 08:01; Admin Dose 1 TAB; Start 09/12/16 at 14:00 IV Flush 10 ml 10 ml PRN PRN IV IV PROTOCOL; Start 09/21/16 at 12:00 Ondansetron HCl/ Sodium Chloride (Zofran Inj/NS) 54 ml @ 216 mls/hr Q12H PRN IV NAUSEA AND/OR VOMITING; Start 09/29/16 at 22:00 Prednisone 5 mg 5 mg BID PO Last administered on 10/25/16 08:00; Admin Dose 5 MG; Start 09/29/16 at 21:00 Docetaxel 45 mg/ Sodium Chloride 100 ml @ 100 mls/hr Th@22 IV Last administered on 10/20/16 22:12; Admin Dose 100 MLS/HR; Start 10/06/16 at 22:00; Stop 10/27/16 at 22:59 Ondansetron HCl/ Dexamethasone/ Dextrose (Zofran Inj/ Decadron/D5W) 60 ml @ 252 mls/hr Th@2130 IV Last administered on 10/20/16 21:26; Admin Dose 252 MLS/ HR; Start 10/06/16 at 21:30; Stop 10/27/16 at 21:45 Bisacodyl (Dulcolax Supp) 10 mg DAILY PRN [place] CONSTIPATION Last administered on 10/07/16 03:07; Admin Dose 10 MG; Start 10/07/16 at 03:00 Fidaxomicin (Dificid) 200 mg BID PO Last administered on 10/25/16 09:00; Admin Dose 200 MG; Start 10/17/16 at 10:30 Hydromorphone HCl (Dilaudid) 2 mg Q3H PRN IV PAIN Last administered on 16:34; Admin Dose 2 MG; Start 10/19/16 at 15:30 Methadone HCl (Methadone Liq (Ped)) 3 mg Q6 PO Last administered on 10/25/16 13 :24; Admin Dose 3 MG; Start 10/19/16 at 18:00 Cholestyramine Resin 4 gm 4 gm BID PO Last administered on 10/25/16 08:00; Admin Dose 4 GM; Start 10/22/16 at 21:00 Filgrastim/ Dextrose (Neupogen/D5W) 51 ml @ 102 mls/hr DAILY@17 IVPB Last administered on 10/25/16 18:37; Admin Dose 102 MLS/HR; Start 10/25/16 at 17:00 Vancomycin HCl (Vancomycin Oral Syringe) 250 mg Q6 PO Last administered on 18:41; Admin Dose 250 MG; Start 10/25/16 at 18:00 Metronidazole 500 mg 500 mg Q8 PO Last administered on 10/25/16 16:34; Admin Dose 500 MG; Start 10/25/16 at 14:00 Sodium Chloride (NS) 1,000 ml @ 50 mls/hr Q20H IV Last administered on 18:41; Admin Dose 50 MLS/HR; Start 10/25/16 at 14:30 MICHAEL COELHO MD Oct 25, 2016 19:59
[2016-10-25 20:35] VITALS: BP 113/74; RESP 17
[2016-10-26] MEDS: VANCOMYCIN HCL 250 MG/5ML POSYG PO SCH ×4 (00:14→18:55)
[2016-10-26] MEDS: METHADONE (1 MG/1 ML PO SYG) PO SCH ×4 (00:14→18:55)
[2016-10-26] MEDS: HYDROmorphONE 2 MG/ML SYG IV PRN ×5 (00:50→22:58)
[2016-10-26 05:28] LABS: POTASSIUM 3.9 mmol/L (3.5-5.1)
[2016-10-26 05:31] LABS: CREATININE 0.25 mg/dl (0.61-1.24)
[2016-10-26 05:32] LABS: CALCIUM 7.3 mg/dl (8.4-10.2)
[2016-10-26 05:44] LABS: HEMOGLOBIN 10.4 g/dl (14.0-18.0); MEAN CORPUSCULAR HEMOGLOBIN 29.2 pg (29.0-33.0); MEAN CORPUSCULAR HGB CONC 34.7 g/dl (32.0-37.0); MEAN CORPUSCULAR VOLUME 84.3 fl (82.0-101.0); MEAN PLATELET VOLUME 8.4 fl (7.4-10.4); PLATELET COUNT 55 10^3/UL (140-440); RED BLOOD COUNT 3.56 10^6/ul (4.70-6.10); RED CELL DISTRIBUTION WIDTH 15.2 % (11.5-14.5); UNCORRECTED WBC 1.9 10^3/ul (4.8-10.8); WHITE BLOOD COUNT 1.9 10^3/ul (4.8-10.8)
[2016-10-26 05:46] LABS: CONDITION 1; LH ANALYZER COMMENTS 1; SUSPECT 1
[2016-10-26] MEDS: metroNIDAZOLE 500 MG TAB PO SCH ×3 (06:17→21:27)
[2016-10-26 08:00] VITALS: BP 116/76; RESP 18
[2016-10-26] MEDS: BICALUTAMIDE 50 MG TAB PO SCH (09:00)
--- NOTE | 2016-10-26 09:02 | CONS ---
Date/Time of Note Date/Time of Note DATE: 10/26/16 TIME: 09:02 Assessment/Plan Assessment/Plan Chief Complaint/Hosp Course Metastatic prostate cancer. FAMILY CONFERENCE RE DX, PROGNOSIS AND TREATMENT OPTIONS RE: chemotherapy and steroids - PER PROTOCOL Chemotherapy Docetaxel (Taxotere) 30 mg/m2 IV over 30 minutes once per day on days 1, 8, 15, 22, 29 Prednisone (Sterapred) 5 mg PO BID on days 1 to 42 Supportive medications Dexamethasone (Decadron) 8 mg (route not specified) once 1 hour before Docetaxel (Taxotere) Antiemetics "according to local practice" 42-day cycle for up to 5 cycles NEUTROPENIA NEUPOGEN ANEMIA POST PRBC MONITOR CLOSELY OBSERVE FOR BLEEDING AND HEMOLYSIS Thrombocytopenia. Continue to monitor platelets. transfuse as needed PANCYTOPENIA MONITOR DECONDITIONING PT Acute on chronic back pain. PAIN CONTROL C DIFF COLITIS ATB PER ID Problems: Consultation Date/Type/Reason Admit Date/Time Sep 06, 2016 at 22:01 Initial Consult Date 09/08/16 Type of Consultation: hemeon Referring Provider: TIMOTHY MARAVILLA MD 24 HR Interval Summary Free Text/Dictation ALL NOTED D/W FAMILY Exam/Review of Systems Vital Signs Vitals Vital Signs Date Time Temp Pulse Resp B/P Pulse Ox O2 Delivery O2 Flow Rate FiO2 10/26/16 08:00 97.5 110 18 116/76 97 10/25/16 09:00 Room Air Intake and Output 10/25/16 10/25/16 10/26/16 15:00 23:00 07:00 Intake Total 920 ml 651 ml 1420 ml Output Total 800 ml 900 ml Balance 120 ml 651 ml 520 ml Exam GENERAL: The patient is lethargic but arousable. HEENT: No eye discharge. Oropharynx revealed dry mucosa. NECK: No mass. LUNGS: Occasional coarse breath sounds. CARDIOVASCULAR: S1, S2 normal. Sinus tachycardia. ABDOMEN: Soft, nondistended, nontender. EXTREMITIES: No leg edema. Cachectic extremities. Results Result Diagram: 10/26/16 0419 10/26/16 0414 Results 24 hrs Laboratory Tests Test 10/26/16 04:14 10/26/16 04:19 Anion Gap 12 Blood Urea Nitrogen 6 L Calcium Level 7.3 L Carbon Dioxide Level 24 Chloride Level 97 Creatinine 0.25 L Glucose Level 119 Potassium Level 3.9 Sodium Level 129 L Blood Morphology Comment Hematocrit 30.0 L Hemoglobin 10.4 L Mean Corpuscular Hemoglobin 29.2 Mean Corpuscular Hemoglobin Concent 34.7 Mean Corpuscular Volume 84.3 Mean Platelet Volume 8.4 Platelet Count 55 L Red Blood Count 3.56 L Red Cell Distribution Width 15.2 H White Blood Count 1.9 #L Medications Medications Current Medications Bicalutamide (Casodex) 50 mg QAM PO Last administered on 10/25/16 10:19; Admin Dose 50 MG; Start 09/07/16 at 09:00 Docusate Sodium (Colace) 100 mg BID PRN PO CONSTIPATION Last administered on 05:22; Admin Dose 100 MG; Start 09/07/16 at 00:00; Status Future Hold Escitalopram Oxalate (Lexapro) 5 mg DAILY PO Last administered on 10/25/16 09: 00; Admin Dose 5 MG; Start 09/07/16 at 09:00 Megestrol Acetate (Megace Susp) 400 mg BID PO Last administered on 10/25/16 21: 17; Admin Dose 400 MG; Start 09/07/16 at 09:00 Methylnaltrexone [place] (Relistor) 12 mg Q48H SC Last administered on 23:54; Admin Dose 12 MG; Start 09/07/16 at 00:00; Status Future Hold Ondansetron HCl (Zofran Tab) 4 mg Q6H PRN PO NAUSEA AND/OR VOMITING Last administered on 10/19/16 18:17; Admin Dose 4 MG; Start 09/07/16 at 00:00 Acetaminophen (Tylenol Tab) 500 mg Q4H PRN PO PAIN AND OR ELEVATED TEMP Last administered on 10/05/16 15:37; Admin Dose 500 MG; Start 09/07/16 at 21:30 IV Flush (NS 10 ml) 10 ml PRN PRN IV IV PROTOCOL; Start 09/11/16 at 10:00 Calcium/Vitamin D ([place]/ Vit-D (500/200)) 1 tab BID PO Last administered on 10/25/16 21:17; Admin Dose 1 TAB; Start 09/12/16 at 14:00 IV Flush 10 ml 10 ml PRN PRN IV IV PROTOCOL; Start 09/21/16 at 12:00 Ondansetron HCl/ Sodium Chloride (Zofran Inj/NS) 54 ml @ 216 mls/hr Q12H PRN IV NAUSEA AND/OR VOMITING; Start 09/29/16 at 22:00 Prednisone 5 mg 5 mg BID PO Last administered on 10/25/16 21:17; Admin Dose 5 MG; Start 09/29/16 at 21:00 Docetaxel 45 mg/ Sodium Chloride 100 ml @ 100 mls/hr Th@22 IV Last administered on 10/20/16 22:12; Admin Dose 100 MLS/HR; Start 10/06/16 at 22:00; Stop 10/27/16 at 22:59 Ondansetron HCl/ Dexamethasone/ Dextrose (Zofran Inj/ Decadron/D5W) 60 ml @ 252 mls/hr Th@2130 IV Last administered on 10/20/16 21:26; Admin Dose 252 MLS/ HR; Start 10/06/16 at 21:30; Stop 10/27/16 at 21:45 Bisacodyl (Dulcolax Supp) 10 mg DAILY PRN [place] CONSTIPATION Last administered on 10/07/16 03:07; Admin Dose 10 MG; Start 10/07/16 at 03:00 Fidaxomicin (Dificid) 200 mg BID PO Last administered on 10/25/16 21:17; Admin Dose 200 MG; Start 10/17/16 at 10:30 Hydromorphone HCl (Dilaudid) 2 mg Q3H PRN IV PAIN Last administered on 05:21; Admin Dose 2 MG; Start 10/19/16 at 15:30 Methadone HCl (Methadone Liq (Ped)) 3 mg Q6 PO Last administered on 10/26/16 06 :17; Admin Dose 3 MG; Start 10/19/16 at 18:00 Cholestyramine Resin 4 gm 4 gm BID PO Last administered on 10/25/16 21:17; Admin Dose 4 GM; Start 10/22/16 at 21:00 Filgrastim/ Dextrose (Neupogen/D5W) 51 ml @ 102 mls/hr DAILY@17 IVPB Last administered on 10/25/16 18:37; Admin Dose 102 MLS/HR; Start 10/25/16 at 17:00 Vancomycin HCl (Vancomycin Oral Syringe) 250 mg Q6 PO Last administered on 06:17; Admin Dose 250 MG; Start 10/25/16 at 18:00 Metronidazole 500 mg 500 mg Q8 PO Last administered on 10/26/16 06:17; Admin Dose 500 MG; Start 10/25/16 at 14:00 Sodium Chloride (NS) 1,000 ml @ 50 mls/hr Q20H IV Last administered on 18:41; Admin Dose 50 MLS/HR; Start 10/25/16 at 14:30 JARAD CHOI MD Oct 26, 2016 09:02
--- NOTE | 2016-10-26 10:04 | RADRPT ---
PROCEDURE: Chest Radiograph. CLINICAL INDICATION: Wheezing TECHNIQUE: Single frontal chest radiograph. COMPARISON: Chest radiograph 10/19/2016. CT chest 09/09/2016. FINDINGS: A nasogastric tube remains with distal tip in the stomach, in radiographically appropriate position. A left upper extremity PICC is in place with distal tip in the region of the cavoatrial junction. The cardiomediastinal silhouette is within normal limits. No infiltrate or effusion is seen. P atchy sclerotic changes are seen throughout the bones. IMPRESSION: 1. No evidence of acute cardiopulmonary disease. 2. Nasogastric tube and left upper extremity PICC in radiographically appropriate position. 3. Osseous metastatic disease. RPTAT: KK .Konrad Cosme MD, MD Date Time Electronically viewed and signed by .Konrad Cosme MD, on 10/26/2016 10:04 .B/
[2016-10-26] MEDS: predniSONE 5 MG TAB PO SCH ×2 (10:24→21:27)
[2016-10-26] MEDS: MEGESTROL (40 MG/ML) 10ML CUP PO SCH ×2 (10:24→21:27)
[2016-10-26] MEDS: FIDAXOMICIN 200 MG TABLET PO SCH ×2 (10:24→21:27)
[2016-10-26] MEDS: ESCITALOPRAM 10 MG TAB PO SCH (10:25)
[2016-10-26] MEDS: CALCIUM/VITAMIN D (500/200) TAB PO SCH ×2 (10:25→21:27)
[2016-10-26] MEDS: CHOLESTYRAMINE (LIGHT) 4 GM PACKET PO SCH ×2 (10:25→21:27)
[2016-10-26] MEDS: SOD CHLORIDE 0.9% 1,000 ML IV SCH (10:26)
[2016-10-26 13:35] LABS: LYMPHOCYTES # 0.6 10^3/ul (0.8-2.9); MONOCYTE # 0.2 10^3/ul (0.3-0.9); NEUTROPHIL # 0.6 10^3/ul (1.6-7.5)
--- NOTE | 2016-10-26 15:30 | CONS ---
Date/Time of Note Date/Time of Note DATE: 10/26/16 TIME: 15:26 Assessment/Plan Assessment/Plan Chief Complaint/Hosp Course SUBJECTIVE: Spiked fever, lying comfortably in bed, nad ANTIMICROBIALS: PO Vanco, Flagyl, Dificid. INDWELLINGS: White, PICC, NG tube. PHYSICAL EXAMINATION: GENERAL: Cachectic, elderly man, in no distress. HEENT: Head atraumatic, normocephalic. Sclerae anicteric. Buccal mucosa dry. NECK: Supple, trachea midline. CHEST: Chest rise is symmetrical. Breath sounds diminished to the bases. HEART: S1, S2. ABDOMEN: Soft, bowel tones present. EXTREMITIES: Without cyanosis. ASSESSMENT: 1. Neutropenic fevers 2. Clostridium difficile colitis, CMV DNA by PCR was negative. 3. Metastatic prostate carcinoma. 4. Cachexia. 5. Status post methicillin-resistant Staphylococcus aureus urinary tract infection. PLAN: Clinically unchanged, s/p fever, no radiographic evidence of PNA, will castro cx, start Diflucan, if continues to spike will start on Vanco and Merrem, continue abx, aspiration precautions, repeat cxr in am [facility] staff Problems: Consultation Date/Type/Reason Admit Date/Time Sep 06, 2016 at 22:01 Initial Consult Date 09/08/16 Type of Consultation: ID Referring Provider: TIMOTHY MARAVILLA MD Exam/Review of Systems Vital Signs Vitals Vital Signs Date Time Temp Pulse Resp B/P Pulse Ox O2 Delivery O2 Flow Rate FiO2 10/26/16 08:00 97.5 110 18 116/76 97 10/25/16 09:00 Room Air Intake and Output 10/25/16 10/25/16 10/26/16 15:00 23:00 07:00 Intake Total 920 ml 651 ml 1420 ml Output Total 800 ml 900 ml Balance 120 ml 651 ml 520 ml Results Result Diagram: 10/26/16 0419 10/26/16 0414 Results 24 hrs Laboratory Tests Test 10/26/16 04:14 10/26/16 04:19 Anion Gap 12 Blood Urea Nitrogen 6 L Calcium Level 7.3 L Carbon Dioxide Level 24 Chloride Level 97 Creatinine 0.25 L Glucose Level 119 Potassium Level 3.9 Sodium Level 129 L Band Neutrophils % 17.0 H Blood Morphology Comment Hematocrit 30.0 L Hemoglobin 10.4 L Lymphocytes # 0.6 L Lymphocytes % 29.0 Mean Corpuscular Hemoglobin 29.2 Mean Corpuscular Hemoglobin Concent 34.7 Mean Corpuscular Volume 84.3 Mean Platelet Volume 8.4 Metamyelocytes # 0.2 Metamyelocytes % 10.0 H Monocytes # 0.2 L Monocytes % 10.0 Neutrophils # 0.6 L Neutrophils % 34.0 L Platelet Count 55 L Red Blood Count 3.56 L Red Cell Distribution Width 15.2 H White Blood Count 1.9 #L Medications Medications Current Medications Bicalutamide (Casodex) 50 mg QAM PO Last administered on 10/25/16 10:19; Admin Dose 50 MG; Start 09/07/16 at 09:00 Docusate Sodium (Colace) 100 mg BID PRN PO CONSTIPATION Last administered on 05:22; Admin Dose 100 MG; Start 09/07/16 at 00:00; Status Future Hold Escitalopram Oxalate (Lexapro) 5 mg DAILY PO Last administered on 10/26/16 10: 25; Admin Dose 5 MG; Start 09/07/16 at 09:00 Megestrol Acetate (Megace Susp) 400 mg BID PO Last administered on 10/26/16 10: 24; Admin Dose 400 MG; Start 09/07/16 at 09:00 Methylnaltrexone [place] (Relistor) 12 mg Q48H SC Last administered on 23:54; Admin Dose 12 MG; Start 09/07/16 at 00:00; Status Future Hold Ondansetron HCl (Zofran Tab) 4 mg Q6H PRN PO NAUSEA AND/OR VOMITING Last administered on 10/19/16 18:17; Admin Dose 4 MG; Start 09/07/16 at 00:00 Acetaminophen (Tylenol Tab) 500 mg Q4H PRN PO PAIN AND OR ELEVATED TEMP Last administered on 10/05/16 15:37; Admin Dose 500 MG; Start 09/07/16 at 21:30 IV Flush (NS 10 ml) 10 ml PRN PRN IV IV PROTOCOL; Start 09/11/16 at 10:00 Calcium/Vitamin D (Oyster Shell/ Vit-D (500/200)) 1 tab BID PO Last administered on 10/26/16 10:25; Admin Dose 1 TAB; Start 09/12/16 at 14:00 IV Flush 10 ml 10 ml PRN PRN IV IV PROTOCOL; Start 09/21/16 at 12:00 Ondansetron HCl/ Sodium Chloride (Zofran Inj/NS) 54 ml @ 216 mls/hr Q12H PRN IV NAUSEA AND/OR VOMITING; Start 09/29/16 at 22:00 Prednisone 5 mg 5 mg BID PO Last administered on 10/26/16 10:24; Admin Dose 5 MG; Start 09/29/16 at 21:00 Docetaxel 45 mg/ Sodium Chloride 100 ml @ 100 mls/hr Th@22 IV Last administered on 10/20/16 22:12; Admin Dose 100 MLS/HR; Start 10/06/16 at 22:00; Stop 10/27/16 at 22:59 Ondansetron HCl/ Dexamethasone/ Dextrose (Zofran Inj/ Decadron/D5W) 60 ml @ 252 mls/hr Th@2130 IV Last administered on 10/20/16 21:26; Admin Dose 252 MLS/ HR; Start 10/06/16 at 21:30; Stop 10/27/16 at 21:45 Bisacodyl (Dulcolax Supp) 10 mg DAILY PRN [place] CONSTIPATION Last administered on 10/07/16 03:07; Admin Dose 10 MG; Start 10/07/16 at 03:00 Fidaxomicin (Dificid) 200 mg BID PO Last administered on 10/26/16 10:24; Admin Dose 200 MG; Start 10/17/16 at 10:30 Hydromorphone HCl (Dilaudid) 2 mg Q3H PRN IV PAIN Last administered on 13:36; Admin Dose 2 MG; Start 10/19/16 at 15:30 Methadone HCl (Methadone Liq (Ped)) 3 mg Q6 PO Last administered on 10/26/16 12 :00; Admin Dose 3 MG; Start 10/19/16 at 18:00 Cholestyramine Resin 4 gm 4 gm BID PO Last administered on 10/26/16 10:25; Admin Dose 4 GM; Start 10/22/16 at 21:00 Filgrastim/ Dextrose (Neupogen/D5W) 51 ml @ 102 mls/hr DAILY@17 IVPB Last administered on 10/25/16 18:37; Admin Dose 102 MLS/HR; Start 10/25/16 at 17:00 Vancomycin HCl (Vancomycin Oral Syringe) 250 mg Q6 PO Last administered on 12:00; Admin Dose 250 MG; Start 10/25/16 at 18:00 Metronidazole 500 mg 500 mg Q8 PO Last administered on 10/26/16 13:39; Admin Dose 500 MG; Start 10/25/16 at 14:00 Sodium Chloride (NS) 1,000 ml @ 50 mls/hr Q20H IV Last administered on 18:41; Admin Dose 50 MLS/HR; Start 10/25/16 at 14:30 EUNICE GUNTER NP Oct 26, 2016 15:30
[2016-10-26] MEDS: FLUCONAZOLE 100 MG TAB PO SCH (17:02)
[2016-10-26] MEDS: FILGRASTIM 300 MCG in DEXTROSE 5% 50 ML IVPB SCH (17:22)
--- NOTE | 2016-10-26 17:35 | PN ---
Date/Time of Note Date/Time of Note DATE: 10/26/16 TIME: 17:33 Assessment/Plan VTE Prophylaxis VTE Prophylaxis Intervention: SCD's Lines/Catheters IV Catheter Type (from Nrsg): PICC Line Central line still needed: Yes Urinary Cath still in place: Yes Reason Cath still needed: urinary retention Assessment/Plan Chief Complaint/Hosp Course ASSESSMENT AND PLAN: 1. Clostridium difficile colitis. Contact isolation. Patient is followed by Dr. Schuler group from infectious disease standpoint. Patient is currently on Questran, Dificid, Vanco and Flagyl. 2. Metastatic prostate cancer. Dr. Hernandez is following patient in oncology consultation. Continue chemotherapy and steroids. 3. Thrombocytopenia. Continue to monitor platelets. 4. Acute on chronic back pain. Dr. Ferguson is following the patient in pain management. Continue methadone and Dilaudid p.r.n. for breakthrough pain. 5. Anemia, this post blood transfusion, continue to monitor hemoglobin and hematocrit. 6. MRSA UTI, status post treatment 7. Protein calorie malnutrition, continue Megace, continue high-protein and high-calorie diet, continue tube feeding via NG tube. 8. Hyponatremia, continue IV fluids. Further recommendations based on clinical course. Plan of care discussed with Dr. Nichols. Problems: Subjective 24 Hr Interval Summary Free Text/Dictation Patient spiked fever last night, chest x-ray with no infiltrates, continue to monitor, patient had increased residual from G-tube, currently held, continue aspiration precaution. Exam/Review of Systems Vital Signs Vitals Vital Signs Date Time Temp Pulse Resp B/P Pulse Ox O2 Delivery O2 Flow Rate FiO2 10/26/16 08:00 97.5 110 18 116/76 97 10/25/16 09:00 Room Air Intake and Output 10/25/16 10/25/16 10/26/16 15:00 23:00 07:00 Intake Total 920 ml 651 ml 1420 ml Output Total 800 ml 900 ml Balance 120 ml 651 ml 520 ml Exam GENERAL: Well-developed, cachectic male, currently is awake, alert. HEENT: Head is atraumatic, normocephalic. PERRLA. NGT. NECK: Supple. No mass, no thyromegaly. LUNGS: Clear bilaterally. No rhonchi, wheezes, rales noted. HEART: Normal S1, S2. No murmurs, gallops, clicks, rubs noted. ABDOMEN: Flat, soft, nondistended, nontender. Bowel sounds present. EXTREMITIES: No edema. SKIN: There is no rash, petechiae noted. NEUROLOGIC: The patient is awake, alert, and oriented x3. Results Result Diagram: 10/26/16 0419 10/26/16 0414 Results 24 hrs Laboratory Tests Test 10/26/16 04:14 10/26/16 04:19 Anion Gap 12 Blood Urea Nitrogen 6 L Calcium Level 7.3 L Carbon Dioxide Level 24 Chloride Level 97 Creatinine 0.25 L Glucose Level 119 Potassium Level 3.9 Sodium Level 129 L Band Neutrophils % 17.0 H Blood Morphology Comment Hematocrit 30.0 L Hemoglobin 10.4 L Lymphocytes # 0.6 L Lymphocytes % 29.0 Mean Corpuscular Hemoglobin 29.2 Mean Corpuscular Hemoglobin Concent 34.7 Mean Corpuscular Volume 84.3 Mean Platelet Volume 8.4 Metamyelocytes # 0.2 Metamyelocytes % 10.0 H Monocytes # 0.2 L Monocytes % 10.0 Neutrophils # 0.6 L Neutrophils % 34.0 L Platelet Count 55 L Red Blood Count 3.56 L Red Cell Distribution Width 15.2 H White Blood Count 1.9 #L Medications Medications Current Medications Bicalutamide (Casodex) 50 mg QAM PO Last administered on 10/25/16 10:19; Admin Dose 50 MG; Start 09/07/16 at 09:00 Docusate Sodium (Colace) 100 mg BID PRN PO CONSTIPATION Last administered on 05:22; Admin Dose 100 MG; Start 09/07/16 at 00:00; Status Future Hold Escitalopram Oxalate (Lexapro) 5 mg DAILY PO Last administered on 10/26/16 10: 25; Admin Dose 5 MG; Start 09/07/16 at 09:00 Megestrol Acetate (Megace Susp) 400 mg BID PO Last administered on 10/26/16 10: 24; Admin Dose 400 MG; Start 09/07/16 at 09:00 Methylnaltrexone [place] (Relistor) 12 mg Q48H SC Last administered on 23:54; Admin Dose 12 MG; Start 09/07/16 at 00:00; Status Future Hold Ondansetron HCl (Zofran Tab) 4 mg Q6H PRN PO NAUSEA AND/OR VOMITING Last administered on 10/19/16 18:17; Admin Dose 4 MG; Start 09/07/16 at 00:00 Acetaminophen (Tylenol Tab) 500 mg Q4H PRN PO PAIN AND OR ELEVATED TEMP Last administered on 10/05/16 15:37; Admin Dose 500 MG; Start 09/07/16 at 21:30 IV Flush (NS 10 ml) 10 ml PRN PRN IV IV PROTOCOL; Start 09/11/16 at 10:00 Calcium/Vitamin D (Oyster Shell/ Vit-D (500/200)) 1 tab BID PO Last administered on 10/26/16 10:25; Admin Dose 1 TAB; Start 09/12/16 at 14:00 IV Flush 10 ml 10 ml PRN PRN IV IV PROTOCOL; Start 09/21/16 at 12:00 Ondansetron HCl/ Sodium Chloride (Zofran Inj/NS) 54 ml @ 216 mls/hr Q12H PRN IV NAUSEA AND/OR VOMITING; Start 09/29/16 at 22:00 Prednisone 5 mg 5 mg BID PO Last administered on 10/26/16 10:24; Admin Dose 5 MG; Start 09/29/16 at 21:00 Docetaxel 45 mg/ Sodium Chloride 100 ml @ 100 mls/hr Th@22 IV Last administered on 10/20/16 22:12; Admin Dose 100 MLS/HR; Start 10/06/16 at 22:00; Stop 10/27/16 at 22:59 Ondansetron HCl/ Dexamethasone/ Dextrose (Zofran Inj/ Decadron/D5W) 60 ml @ 252 mls/hr Th@2130 IV Last administered on 10/20/16 21:26; Admin Dose 252 MLS/ HR; Start 10/06/16 at 21:30; Stop 10/27/16 at 21:45 Bisacodyl (Dulcolax Supp) 10 mg DAILY PRN [place] CONSTIPATION Last administered on 10/07/16 03:07; Admin Dose 10 MG; Start 10/07/16 at 03:00 Fidaxomicin (Dificid) 200 mg BID PO Last administered on 10/26/16 10:24; Admin Dose 200 MG; Start 10/17/16 at 10:30 Hydromorphone HCl (Dilaudid) 2 mg Q3H PRN IV PAIN Last administered on 13:36; Admin Dose 2 MG; Start 10/19/16 at 15:30 Methadone HCl (Methadone Liq (Ped)) 3 mg Q6 PO Last administered on 10/26/16 12 :00; Admin Dose 3 MG; Start 10/19/16 at 18:00 Cholestyramine Resin 4 gm 4 gm BID PO Last administered on 10/26/16 10:25; Admin Dose 4 GM; Start 10/22/16 at 21:00 Filgrastim/ Dextrose (Neupogen/D5W) 51 ml @ 102 mls/hr DAILY@17 IVPB Last administered on 10/26/16 17:22; Admin Dose 102 MLS/HR; Start 10/25/16 at 17:00 Vancomycin HCl (Vancomycin Oral Syringe) 250 mg Q6 PO Last administered on 12:00; Admin Dose 250 MG; Start 10/25/16 at 18:00 Metronidazole 500 mg 500 mg Q8 PO Last administered on 10/26/16 13:39; Admin Dose 500 MG; Start 10/25/16 at 14:00 Sodium Chloride (NS) 1,000 ml @ 50 mls/hr Q20H IV Last administered on 18:41; Admin Dose 50 MLS/HR; Start 10/25/16 at 14:30 Fluconazole (Diflucan) 100 mg DAILY PO Last administered on 10/26/16 17:02; Admin Dose 100 MG; Start 10/26/16 at 16:00 SREE GRIFFITH Oct 26, 2016 17:35
--- NOTE | 2016-10-26 17:42 | CONS ---
Date/Time of Note Date/Time of Note DATE: 10/26/16 TIME: 17:41 Assessment/Plan Assessment/Plan Additional Assessment/Plan Additional Assessment/Plan Impression: 1. Clostridium difficile colitis. 2. Abdominal pain: worsening, associated with nausea and vomiting. ddx include C. Diff colitis vs side effects from chemotherapy vs gastritis, duodenitis, esophagitis. 3. anemia 4. Metastatic prostate cancer. Dr. Hernandez is following patient in oncology consultation. Continue chemotherapy and steroids. 5. MRSA 6. Abnormal alkaline po4 secondary to jose mets. 7.diarrhea secondary to C.Difficile,better 8.neutropenia,on neupogen Recommendations: 1. Continue vancomycin for C. Diff. Consider fidaxomicin per ID. 2. f/uCMV PCR as pt is immunosuppressed and to r/o possible CMV colitis/ enteritis as cause of diarrhea 3. continue pain control 4. ordered occult stool blood negative 5. abx per ID 6. d/c Protonix ,it will aggravate 7. continue other supportive care per pcp and other consultants 8.Questran,increase dose 9,enteral feeding,clinically looks better Consultation Date/Type/Reason Admit Date/Time Sep 06, 2016 at 22:01 Initial Consult Date 09/08/16 Type of Consultation: ID Referring Provider: TIMOTHY MARAVILLA MD 24 HR Interval Summary Free Text/Dictation no diarrhea Exam/Review of Systems Vital Signs Vitals Vital Signs Date Time Temp Pulse Resp B/P Pulse Ox O2 Delivery O2 Flow Rate FiO2 10/26/16 08:00 97.5 110 18 116/76 97 10/25/16 09:00 Room Air Intake and Output 10/25/16 10/25/16 10/26/16 15:00 23:00 07:00 Intake Total 920 ml 651 ml 1420 ml Output Total 800 ml 900 ml Balance 120 ml 651 ml 520 ml Exam Constitutional: alert, oriented, well developed Psych: nl mood/affect, no complaints Head: atraumatic, normocephalic Eyes: EOMI, PERRL, nl conjunctiva, nl lids, nl sclera ENMT: nl external ears & nose, nl lips & teeth, nl nasal mucosa & septum Neck: non-tender, supple Respiratory: clear to auscultation, normal air movement Cardiovascular: nl pulses, regular rate and rhythm Gastrointestinal: nl liver, spleen, non-tender, soft Musculoskeletal: nl extremities to inspection, nl gait and stance Extremities: normal pulses 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: [employer]IST II-XII intact, nl mental status, nl speech, nl strength Skin: nl turgor, No rash or lesions Lymph: nl lymph nodes Results Result Diagram: 10/26/16 0419 10/26/16 0414 Results 24 hrs Laboratory Tests Test 10/26/16 04:14 10/26/16 04:19 Anion Gap 12 Blood Urea Nitrogen 6 L Calcium Level 7.3 L Carbon Dioxide Level 24 Chloride Level 97 Creatinine 0.25 L Glucose Level 119 Potassium Level 3.9 Sodium Level 129 L Band Neutrophils % 17.0 H Blood Morphology Comment Hematocrit 30.0 L Hemoglobin 10.4 L Lymphocytes # 0.6 L Lymphocytes % 29.0 Mean Corpuscular Hemoglobin 29.2 Mean Corpuscular Hemoglobin Concent 34.7 Mean Corpuscular Volume 84.3 Mean Platelet Volume 8.4 Metamyelocytes # 0.2 Metamyelocytes % 10.0 H Monocytes # 0.2 L Monocytes % 10.0 Neutrophils # 0.6 L Neutrophils % 34.0 L Platelet Count 55 L Red Blood Count 3.56 L Red Cell Distribution Width 15.2 H White Blood Count 1.9 #L Medications Medications Current Medications Bicalutamide (Casodex) 50 mg QAM PO Last administered on 10/25/16 10:19; Admin Dose 50 MG; Start 09/07/16 at 09:00 Docusate Sodium (Colace) 100 mg BID PRN PO CONSTIPATION Last administered on 05:22; Admin Dose 100 MG; Start 09/07/16 at 00:00; Status Future Hold Escitalopram Oxalate (Lexapro) 5 mg DAILY PO Last administered on 10/26/16 10: 25; Admin Dose 5 MG; Start 09/07/16 at 09:00 Megestrol Acetate (Megace Susp) 400 mg BID PO Last administered on 10/26/16 10: 24; Admin Dose 400 MG; Start 09/07/16 at 09:00 Methylnaltrexone [place] (Relistor) 12 mg Q48H SC Last administered on 23:54; Admin Dose 12 MG; Start 09/07/16 at 00:00; Status Future Hold Ondansetron HCl (Zofran Tab) 4 mg Q6H PRN PO NAUSEA AND/OR VOMITING Last administered on 10/19/16 18:17; Admin Dose 4 MG; Start 09/07/16 at 00:00 Acetaminophen (Tylenol Tab) 500 mg Q4H PRN PO PAIN AND OR ELEVATED TEMP Last administered on 10/05/16 15:37; Admin Dose 500 MG; Start 09/07/16 at 21:30 IV Flush (NS 10 ml) 10 ml PRN PRN IV IV PROTOCOL; Start 09/11/16 at 10:00 Calcium/Vitamin D ([place]yster Shell/ Vit-D (500/200)) 1 tab BID PO Last administered on 10/26/16 10:25; Admin Dose 1 TAB; Start 09/12/16 at 14:00 IV Flush 10 ml 10 ml PRN PRN IV IV PROTOCOL; Start 09/21/16 at 12:00 Ondansetron HCl/ Sodium Chloride (Zofran Inj/NS) 54 ml @ 216 mls/hr Q12H PRN IV NAUSEA AND/OR VOMITING; Start 09/29/16 at 22:00 Prednisone 5 mg 5 mg BID PO Last administered on 10/26/16 10:24; Admin Dose 5 MG; Start 09/29/16 at 21:00 Docetaxel 45 mg/ Sodium Chloride 100 ml @ 100 mls/hr Th@22 IV Last administered on 10/20/16 22:12; Admin Dose 100 MLS/HR; Start 10/06/16 at 22:00; Stop 10/27/16 at 22:59 Ondansetron HCl/ Dexamethasone/ Dextrose (Zofran Inj/ Decadron/D5W) 60 ml @ 252 mls/hr Th@2130 IV Last administered on 10/20/16 21:26; Admin Dose 252 MLS/ HR; Start 10/06/16 at 21:30; Stop 10/27/16 at 21:45 Bisacodyl (Dulcolax Supp) 10 mg DAILY PRN [place] CONSTIPATION Last administered on 10/07/16 03:07; Admin Dose 10 MG; Start 10/07/16 at 03:00 Fidaxomicin (Dificid) 200 mg BID PO Last administered on 10/26/16 10:24; Admin Dose 200 MG; Start 10/17/16 at 10:30 Hydromorphone HCl (Dilaudid) 2 mg Q3H PRN IV PAIN Last administered on 13:36; Admin Dose 2 MG; Start 10/19/16 at 15:30 Methadone HCl (Methadone Liq (Ped)) 3 mg Q6 PO Last administered on 10/26/16 12 :00; Admin Dose 3 MG; Start 10/19/16 at 18:00 Cholestyramine Resin 4 gm 4 gm BID PO Last administered on 10/26/16 10:25; Admin Dose 4 GM; Start 10/22/16 at 21:00 Filgrastim/ Dextrose (Neupogen/D5W) 51 ml @ 102 mls/hr DAILY@17 IVPB Last administered on 10/26/16 17:22; Admin Dose 102 MLS/HR; Start 10/25/16 at 17:00 Vancomycin HCl (Vancomycin Oral Syringe) 250 mg Q6 PO Last administered on 12:00; Admin Dose 250 MG; Start 10/25/16 at 18:00 Metronidazole 500 mg 500 mg Q8 PO Last administered on 10/26/16 13:39; Admin Dose 500 MG; Start 10/25/16 at 14:00 Sodium Chloride (NS) 1,000 ml @ 40 mls/hr Q24H IV Last administered on 18:41; Admin Dose 50 MLS/HR; Start 10/25/16 at 14:30 Fluconazole (Diflucan) 100 mg DAILY PO Last administered on 10/26/16 17:02; Admin Dose 100 MG; Start 10/26/16 at 16:00 MICHAEL COELHO MD Oct 26, 2016 17:42
[2016-10-26 19:17] VITALS: BP 109/79; RESP 20
[2016-10-27] MEDS: VANCOMYCIN HCL 250 MG/5ML POSYG PO SCH ×5 (00:01→23:53)
[2016-10-27] MEDS: METHADONE (1 MG/1 ML PO SYG) PO SCH ×4 (00:02→17:56)
[2016-10-27] MEDS: SOD CHLORIDE 0.9% 1,000 ML IV SCH (00:09)
[2016-10-27 06:14] LABS: HEMATOCRIT 27.3 % (42.0-52.0); HEMOGLOBIN 9.5 g/dl (14.0-18.0); MEAN CORPUSCULAR HEMOGLOBIN 29.5 pg (29.0-33.0); MEAN CORPUSCULAR HGB CONC 34.9 g/dl (32.0-37.0); MEAN CORPUSCULAR VOLUME 84.7 fl (82.0-101.0); MEAN PLATELET VOLUME 8.3 fl (7.4-10.4); PLATELET COUNT 57 10^3/UL (140-440); RED BLOOD COUNT 3.22 10^6/ul (4.70-6.10); RED CELL DISTRIBUTION WIDTH 15.9 % (11.5-14.5); UNCORRECTED WBC 2.8 10^3/ul (4.8-10.8); WHITE BLOOD COUNT 2.8 10^3/ul (4.8-10.8)
[2016-10-27] MEDS: metroNIDAZOLE 500 MG TAB PO SCH ×3 (06:43→22:27)
[2016-10-27 07:12] LABS: SUSPECT 1
[2016-10-27 07:13] LABS: CONDITION 1; LH ANALYZER COMMENTS 1
[2016-10-27 08:31] VITALS: BP 117/70; RESP 18
[2016-10-27] MEDS: predniSONE 5 MG TAB PO SCH ×2 (09:56→20:36)
[2016-10-27] MEDS: CHOLESTYRAMINE (LIGHT) 4 GM PACKET PO SCH ×2 (09:56→20:37)
[2016-10-27] MEDS: FLUCONAZOLE 100 MG TAB PO SCH (09:56)
[2016-10-27] MEDS: FIDAXOMICIN 200 MG TABLET PO SCH ×2 (09:56→20:36)
[2016-10-27] MEDS: ESCITALOPRAM 10 MG TAB PO SCH (09:56)
[2016-10-27] MEDS: CALCIUM/VITAMIN D (500/200) TAB PO SCH ×2 (09:56→20:37)
[2016-10-27] MEDS: MEGESTROL (40 MG/ML) 10ML CUP PO SCH ×2 (09:56→20:36)
[2016-10-27] MEDS: BICALUTAMIDE 50 MG TAB PO SCH (09:58)
--- NOTE | 2016-10-27 10:30 | PN ---
Date/Time of Note Date/Time of Note DATE: 10/27/16 TIME: 10:27 Assessment/Plan VTE Prophylaxis VTE Prophylaxis Intervention: SCD's Lines/Catheters IV Catheter Type (from Nrsg): PICC Line Central line still needed: Yes Urinary Cath still in place: Yes Reason Cath still needed: urinary retention Assessment/Plan Assessment/Plan 1. Clostridium difficile colitis. Contact isolation. - per infectious disease- cont on Questran, Dificid, Vanco and Flagyl. 2. Metastatic prostate cancer. - per Dr. Hernandez in oncology consultation. Continue chemotherapy and steroids. 3. Thrombocytopenia. Continue to monitor platelets. 4. Acute on chronic back pain. - per Dr. Ferguson in pain management. Continue methadone and Dilaudid p.r.n. for breakthrough pain. 5. Anemia, this post blood transfusion, continue to monitor hemoglobin and hematocrit. 6. MRSA UTI, status post treatment 7. Protein calorie malnutrition, continue Megace, continue high-protein and high-calorie diet, continue tube feeding via NG tube. 8. Hyponatremia, continue IV fluids. Further recommendations based on clinical course. Plan of care discussed with Dr. Nichols. Subjective 24 Hr Interval Summary Free Text/Dictation NAD, last chemo pill today, NGT to suction. dw staff- no new issues reported, Constitutional: requiring IVF, requiring O2 ENT: no complaints Respiratory: no complaints Cardiovascular: no complaints Gastrointestinal: no complaints Genitourinary: no complaints Musculoskeletal: no complaints Skin: no complaints Exam/Review of Systems Vital Signs Vitals Vital Signs Date Time Temp Pulse Resp B/P Pulse Ox O2 Delivery O2 Flow Rate FiO2 10/27/16 08:31 98.1 108 18 117/70 99 10/25/16 09:00 Room Air Intake and Output 10/26/16 10/26/16 10/27/16 15:00 23:00 07:00 Intake Total 951 ml 1100 ml Output Total 1200 ml 1000 ml Balance -249 ml 100 ml Exam Constitutional: alert, frail Psych: no complaints Head: atraumatic Eyes: EOMI, PERRL, nl sclera ENMT: nl external ears & nose Neck: non-tender Respiratory: clear to auscultation Cardiovascular: nl pulses Gastrointestinal: non-tender, soft 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: nl mental status, nl speech Skin: nl turgor Lymph: nontender Results Result Diagram: 10/27/16 0458 10/26/16 0414 Results 24 hrs Laboratory Tests Test 10/27/16 04:58 Basophils # Pending Basophils % Pending Blood Morphology Comment Eosinophils # Pending Eosinophils % Pending Hematocrit 27.3 L Hemoglobin 9.5 L Lymphocytes # Pending Lymphocytes % Pending Mean Corpuscular Hemoglobin 29.5 Mean Corpuscular Hemoglobin Concent 34.9 Mean Corpuscular Volume 84.7 Mean Platelet Volume 8.3 Monocytes # Pending Monocytes % Pending Neutrophils # Pending Neutrophils % Pending Nucleated Red Blood Cells # Pending Nucleated Red Blood Cells % Pending Platelet Count 57 L Red Blood Count 3.22 L Red Cell Distribution Width 15.9 H White Blood Count 2.8 #L Medications Medications Current Medications Bicalutamide (Casodex) 50 mg QAM PO Last administered on 10/27/16 09:58; Admin Dose 50 MG; Start 09/07/16 at 09:00 Docusate Sodium (Colace) 100 mg BID PRN PO CONSTIPATION Last administered on 05:22; Admin Dose 100 MG; Start 09/07/16 at 00:00; Status Future Hold Escitalopram Oxalate (Lexapro) 5 mg DAILY PO Last administered on 10/27/16 09: 56; Admin Dose 5 MG; Start 09/07/16 at 09:00 Megestrol Acetate (Megace Susp) 400 mg BID PO Last administered on 10/27/16 09: 56; Admin Dose 400 MG; Start 09/07/16 at 09:00 Methylnaltrexone [place] (Relistor) 12 mg Q48H SC Last administered on 23:54; Admin Dose 12 MG; Start 09/07/16 at 00:00; Status Future Hold Ondansetron HCl (Zofran Tab) 4 mg Q6H PRN PO NAUSEA AND/OR VOMITING Last administered on 10/19/16 18:17; Admin Dose 4 MG; Start 09/07/16 at 00:00 Acetaminophen (Tylenol Tab) 500 mg Q4H PRN PO PAIN AND OR ELEVATED TEMP Last administered on 10/05/16 15:37; Admin Dose 500 MG; Start 09/07/16 at 21:30 IV Flush (NS 10 ml) 10 ml PRN PRN IV IV PROTOCOL; Start 09/11/16 at 10:00 Calcium/Vitamin D (Oyster Shell/ Vit-D (500/200)) 1 tab BID PO Last administered on 10/27/16 09:56; Admin Dose 1 TAB; Start 09/12/16 at 14:00 IV Flush 10 ml 10 ml PRN PRN IV IV PROTOCOL; Start 09/21/16 at 12:00 Ondansetron HCl/ Sodium Chloride (Zofran Inj/NS) 54 ml @ 216 mls/hr Q12H PRN IV NAUSEA AND/OR VOMITING; Start 09/29/16 at 22:00 Prednisone 5 mg 5 mg BID PO Last administered on 10/27/16 09:56; Admin Dose 5 MG; Start 09/29/16 at 21:00 Docetaxel 45 mg/ Sodium Chloride 100 ml @ 100 mls/hr Th@22 IV Last administered on 10/20/16 22:12; Admin Dose 100 MLS/HR; Start 10/06/16 at 22:00; Stop 10/27/16 at 22:59 Ondansetron HCl/ Dexamethasone/ Dextrose (Zofran Inj/ Decadron/D5W) 60 ml @ 252 mls/hr Th@2130 IV Last administered on 10/20/16 21:26; Admin Dose 252 MLS/ HR; Start 10/06/16 at 21:30; Stop 10/27/16 at 21:45 Bisacodyl (Dulcolax Supp) 10 mg DAILY PRN [place] CONSTIPATION Last administered on 10/07/16 03:07; Admin Dose 10 MG; Start 10/07/16 at 03:00 Fidaxomicin (Dificid) 200 mg BID PO Last administered on 10/27/16 09:56; Admin Dose 200 MG; Start 10/17/16 at 10:30 Hydromorphone HCl (Dilaudid) 2 mg Q3H PRN IV PAIN Last administered on 22:58; Admin Dose 2 MG; Start 10/19/16 at 15:30 Methadone HCl (Methadone Liq (Ped)) 3 mg Q6 PO Last administered on 10/27/16 06 :43; Admin Dose 3 MG; Start 10/19/16 at 18:00 Cholestyramine Resin 4 gm 4 gm BID PO Last administered on 10/27/16 09:56; Admin Dose 4 GM; Start 10/22/16 at 21:00 Filgrastim/ Dextrose (Neupogen/D5W) 51 ml @ 102 mls/hr DAILY@17 IVPB Last administered on 10/26/16 17:22; Admin Dose 102 MLS/HR; Start 10/25/16 at 17:00 Vancomycin HCl (Vancomycin Oral Syringe) 250 mg Q6 PO Last administered on 06:43; Admin Dose 250 MG; Start 10/25/16 at 18:00 Metronidazole 500 mg 500 mg Q8 PO Last administered on 10/27/16 06:43; Admin Dose 500 MG; Start 10/25/16 at 14:00 Sodium Chloride (NS) 1,000 ml @ 40 mls/hr Q24H IV Last administered on 00:09; Admin Dose 40 MLS/HR; Start 10/25/16 at 14:30 Fluconazole (Diflucan) 100 mg DAILY PO Last administered on 10/27/16 09:56; Admin Dose 100 MG; Start 10/26/16 at 16:00 KENDAL BELLO Oct 27, 2016 10:30
[2016-10-27] MEDS ORDERED: VANCOMYCIN IV PER PHARMACY XX SCH (11:00)
[2016-10-27 11:05] LABS: LYMPHOCYTES # 0.4 10^3/ul (0.8-2.9); MONOCYTE # 0.4 10^3/ul (0.3-0.9); MYELOCYTES # 0.1; NEUTROPHIL # 1.4 10^3/ul (1.6-7.5); PLATELET ESTIMATE PLT APPEAR DECREASED
[2016-10-27] MEDS ORDERED: VANCOMYCIN 1.25 GM in SOD CHLORIDE 0.9% 250 ML IVPB SCH (12:00)
--- NOTE | 2016-10-27 12:07 | CONS ---
Date/Time of Note Date/Time of Note DATE: 10/27/16 TIME: 12:06 Assessment/Plan Assessment/Plan Chief Complaint/Hosp Course Metastatic prostate cancer. FAMILY CONFERENCE RE DX, PROGNOSIS AND TREATMENT OPTIONS RE: chemotherapy and steroids - PER PROTOCOL Chemotherapy Docetaxel (Taxotere) 30 mg/m2 IV over 30 minutes once per day on days 1, 8, 15, 22, 29 Prednisone (Sterapred) 5 mg PO BID on days 1 to 42 Supportive medications Dexamethasone (Decadron) 8 mg (route not specified) once 1 hour before Docetaxel (Taxotere) Antiemetics "according to local practice" 42-day cycle for up to 5 cycles NEUTROPENIA NEUPOGEN ANEMIA POST PRBC MONITOR CLOSELY OBSERVE FOR BLEEDING AND HEMOLYSIS Thrombocytopenia. Continue to monitor platelets. transfuse as needed PANCYTOPENIA MONITOR DECONDITIONING PT Acute on chronic back pain. PAIN CONTROL C DIFF COLITIS ATB PER ID Problems: Consultation Date/Type/Reason Admit Date/Time Sep 06, 2016 at 22:01 Initial Consult Date 09/08/16 Type of Consultation: hemeon Referring Provider: TIMOTHY MARAVILLA MD 24 HR Interval Summary Free Text/Dictation ALL NOTED NO NEW EVENTS VERY WEAK Exam/Review of Systems Vital Signs Vitals Vital Signs Date Time Temp Pulse Resp B/P Pulse Ox O2 Delivery O2 Flow Rate FiO2 10/27/16 08:31 98.1 108 18 117/70 99 10/25/16 09:00 Room Air Intake and Output 10/26/16 10/26/16 10/27/16 15:00 23:00 07:00 Intake Total 951 ml 1100 ml Output Total 1200 ml 1000 ml Balance -249 ml 100 ml Exam GENERAL: The patient is lethargic but arousable. HEENT: No eye discharge. Oropharynx revealed dry mucosa. NECK: No mass. LUNGS: Occasional coarse breath sounds. CARDIOVASCULAR: S1, S2 normal. Sinus tachycardia. ABDOMEN: Soft, nondistended, nontender. EXTREMITIES: No leg edema. Cachectic extremities. Results Result Diagram: 10/27/16 0458 10/26/16 0414 Results 24 hrs Laboratory Tests Test 10/27/16 04:58 Band Neutrophils % 16.0 H Basophils # Basophils % Blood Morphology Comment Differential Comment MANUAL DIFF Eosinophils # Eosinophils % Hematocrit 27.3 L Hemoglobin 9.5 L Lymphocytes # 0.4 L Lymphocytes % 14.0 L Mean Corpuscular Hemoglobin 29.5 Mean Corpuscular Hemoglobin Concent 34.9 Mean Corpuscular Volume 84.7 Mean Platelet Volume 8.3 Metamyelocytes # 0.1 Metamyelocytes % 2.0 H Monocytes # 0.4 Monocytes % 16.0 H Myelocytes # 0.1 Myelocytes % 3.0 H Neutrophils # 1.4 L Neutrophils % 49.0 Nucleated Red Blood Cells # Nucleated Red Blood Cells % 3.0 H Platelet Count 57 L Platelet Estimate PLT APPEAR DECREASED Red Blood Count 3.22 L Red Cell Distribution Width 15.9 H White Blood Count 2.8 #L Medications Medications Current Medications Bicalutamide (Casodex) 50 mg QAM PO Last administered on 10/27/16 09:58; Admin Dose 50 MG; Start 09/07/16 at 09:00 Docusate Sodium (Colace) 100 mg BID PRN PO CONSTIPATION Last administered on 05:22; Admin Dose 100 MG; Start 09/07/16 at 00:00; Status Future Hold Escitalopram Oxalate (Lexapro) 5 mg DAILY PO Last administered on 10/27/16 09: 56; Admin Dose 5 MG; Start 09/07/16 at 09:00 Megestrol Acetate (Megace Susp) 400 mg BID PO Last administered on 10/27/16 09: 56; Admin Dose 400 MG; Start 09/07/16 at 09:00 Methylnaltrexone [place] (Relistor) 12 mg Q48H SC Last administered on 23:54; Admin Dose 12 MG; Start 09/07/16 at 00:00; Status Future Hold Ondansetron HCl (Zofran Tab) 4 mg Q6H PRN PO NAUSEA AND/OR VOMITING Last administered on 10/19/16 18:17; Admin Dose 4 MG; Start 09/07/16 at 00:00 Acetaminophen (Tylenol Tab) 500 mg Q4H PRN PO PAIN AND OR ELEVATED TEMP Last administered on 10/05/16 15:37; Admin Dose 500 MG; Start 09/07/16 at 21:30 IV Flush (NS 10 ml) 10 ml PRN PRN IV IV PROTOCOL; Start 09/11/16 at 10:00 Calcium/Vitamin D (Oyster Shell/ Vit-D (500/200)) 1 tab BID PO Last administered on 10/27/16 09:56; Admin Dose 1 TAB; Start 09/12/16 at 14:00 IV Flush 10 ml 10 ml PRN PRN IV IV PROTOCOL; Start 09/21/16 at 12:00 Ondansetron HCl/ Sodium Chloride (Zofran Inj/NS) 54 ml @ 216 mls/hr Q12H PRN IV NAUSEA AND/OR VOMITING; Start 09/29/16 at 22:00 Prednisone 5 mg 5 mg BID PO Last administered on 10/27/16 09:56; Admin Dose 5 MG; Start 09/29/16 at 21:00 Docetaxel 45 mg/ Sodium Chloride 100 ml @ 100 mls/hr Th@22 IV Last administered on 10/20/16 22:12; Admin Dose 100 MLS/HR; Start 10/06/16 at 22:00; Stop 10/27/16 at 22:59 Ondansetron HCl/ Dexamethasone/ Dextrose (Zofran Inj/ Decadron/D5W) 60 ml @ 252 mls/hr Th@2130 IV Last administered on 10/20/16 21:26; Admin Dose 252 MLS/ HR; Start 10/06/16 at 21:30; Stop 10/27/16 at 21:45 Bisacodyl (Dulcolax Supp) 10 mg DAILY PRN [place] CONSTIPATION Last administered on 10/07/16 03:07; Admin Dose 10 MG; Start 10/07/16 at 03:00 Fidaxomicin (Dificid) 200 mg BID PO Last administered on 10/27/16 09:56; Admin Dose 200 MG; Start 10/17/16 at 10:30 Hydromorphone HCl (Dilaudid) 2 mg Q3H PRN IV PAIN Last administered on 22:58; Admin Dose 2 MG; Start 10/19/16 at 15:30 Methadone HCl (Methadone Liq (Ped)) 3 mg Q6 PO Last administered on 10/27/16 06 :43; Admin Dose 3 MG; Start 10/19/16 at 18:00 Cholestyramine Resin 4 gm 4 gm BID PO Last administered on 10/27/16 09:56; Admin Dose 4 GM; Start 10/22/16 at 21:00 Filgrastim/ Dextrose (Neupogen/D5W) 51 ml @ 102 mls/hr DAILY@17 IVPB Last administered on 10/26/16 17:22; Admin Dose 102 MLS/HR; Start 10/25/16 at 17:00 Vancomycin HCl (Vancomycin Oral Syringe) 250 mg Q6 PO Last administered on 06:43; Admin Dose 250 MG; Start 10/25/16 at 18:00 Metronidazole 500 mg 500 mg Q8 PO Last administered on 10/27/16 06:43; Admin Dose 500 MG; Start 10/25/16 at 14:00 Sodium Chloride (NS) 1,000 ml @ 40 mls/hr Q24H IV Last administered on 00:09; Admin Dose 40 MLS/HR; Start 10/25/16 at 14:30 Fluconazole 100 mg 100 mg DAILY PO Last administered on 10/27/16 09:56; Admin Dose 100 MG; Start 10/26/16 at 16:00 Vancomycin HCl 1.25 gm/Sodium Chloride 250 ml @ 83.333 mls/ hr ONCE IVPB ; Start 10/27/16 at 12:00; Stop 10/27/16 at 14:59 Vancomycin HCl/ Sodium Chloride (Vancocin/NS) 150 ml @ 75 mls/hr Q8H IVPB ; Start 10/27/16 at 20:00 JARAD CHOI MD Oct 27, 2016 12:07
--- NOTE | 2016-10-27 16:53 | PN ---
DATE: 10/27/2016 SUBJECTIVE: No acute changes. The patient is awake, up with physical therapy. No fevers. WBC 2.8, BUN 6, creatinine 0.25. MICROBIOLOGY: Urine culture preliminary growing Staphylococcus aureus. ANTIMICROBIALS: 1. The patient was restarted on IV vancomycin this morning. He is also getting oral vancomycin. 2. Fluconazole. 3. Flagyl. 4. Dificid. INDWELLINGS: White, PICC line, NG tube. PHYSICAL EXAMINATION: GENERAL: Cachectic elderly man in no distress. HEENT: Head atraumatic, normocephalic. Sclerae anicteric. Buccal mucosa dry. NECK: Supple. CHEST: Rise symmetrical. Breath sounds diminished to bases. HEART: S1, S2. ABDOMEN: Soft. Bowel tones present. EXTREMITIES: Without cyanosis. ASSESSMENT: 1. Neutropenic fevers. 2. Methicillin-resistant Staphylococcus aureus urinary tract infection. 3. Persistent Clostridium difficile colitis. 4. Cachexia. 5. Metastatic prostate carcinoma. PLAN: The patient remains unchanged. Continue present care, antibiotics. Follow recommendations o f consultants. Pending family conference regarding prognosis and treatment options. Dictated By: EUNICE GUNTER [employer] for PINO MULLINS/ADRIANA Conf#: [id number] DID#: [id number]
[2016-10-27] MEDS: FILGRASTIM 300 MCG in DEXTROSE 5% 50 ML IVPB SCH (17:56)
--- NOTE | 2016-10-27 19:23 | CONS ---
Date/Time of Note Date/Time of Note DATE: 10/27/16 TIME: 19:23 Assessment/Plan Assessment/Plan Additional Assessment/Plan 1. Clostridium difficile colitis. 2. Abdominal pain: worsening, associated with nausea and vomiting. ddx include C. Diff colitis vs side effects from chemotherapy vs gastritis, duodenitis, esophagitis. 3. anemia 4. Metastatic prostate cancer. Dr. Hernandez is following patient in oncology consultation. Continue chemotherapy and steroids. 5. MRSA 6. Abnormal alkaline po4 secondary to jose mets. 7.diarrhea secondary to C.Difficile,better 8.neutropenia,on neupogen Recommendations: 1. Continue vancomycin for C. Diff. Consider fidaxomicin per ID. 2. f/uCMV PCR as pt is immunosuppressed and to r/o possible CMV colitis/ enteritis as cause of diarrhea 3. continue pain control 4. ordered occult stool blood negative 5. abx per ID 6. d/c Protonix ,it will aggravate 7. continue other supportive care per pcp and other consultants 8.Questran,increase dose 9,enteral feeding,clinically looks better Consultation Date/Type/Reason Admit Date/Time Sep 06, 2016 at 22:01 Initial Consult Date 09/08/16 Type of Consultation: [facility] Referring Provider: TIMOTHY MARAVILLA MD 24 HR Interval Summary Constitutional: improved Exam/Review of Systems Vital Signs Vitals Vital Signs Date Time Temp Pulse Resp B/P Pulse Ox O2 Delivery O2 Flow Rate FiO2 10/27/16 08:31 98.1 108 18 117/70 99 10/25/16 09:00 Room Air Intake and Output 10/26/16 10/26/16 10/27/16 15:00 23:00 07:00 Intake Total 951 ml 1100 ml Output Total 1200 ml 1000 ml Balance -249 ml 100 ml Exam Constitutional: alert, oriented, well developed Psych: nl mood/affect, no complaints Head: atraumatic, normocephalic Eyes: EOMI, PERRL, nl conjunctiva, nl lids, nl sclera ENMT: nl external ears & nose, nl lips & teeth, nl nasal mucosa & septum Neck: non-tender, supple Respiratory: clear to auscultation, normal air movement Cardiovascular: nl pulses, regular rate and rhythm Gastrointestinal: nl liver, spleen, non-tender, soft Musculoskeletal: nl extremities to inspection, nl gait and stance Extremities: normal pulses 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, nl mental status, nl speech, nl strength Skin: nl turgor, No rash or lesions Lymph: nl lymph nodes Results Result Diagram: 10/27/16 0458 10/26/16 0414 Results 24 hrs Laboratory Tests Test 10/27/16 04:58 Band Neutrophils % 16.0 H Basophils # Basophils % Blood Morphology Comment Differential Comment MANUAL DIFF Eosinophils # Eosinophils % Hematocrit 27.3 L Hemoglobin 9.5 L Lymphocytes # 0.4 L Lymphocytes % 14.0 L Mean Corpuscular Hemoglobin 29.5 Mean Corpuscular Hemoglobin Concent 34.9 Mean Corpuscular Volume 84.7 Mean Platelet Volume 8.3 Metamyelocytes # 0.1 Metamyelocytes % 2.0 H Monocytes # 0.4 Monocytes % 16.0 H Myelocytes # 0.1 Myelocytes % 3.0 H Neutrophils # 1.4 L Neutrophils % 49.0 Nucleated Red Blood Cells # Nucleated Red Blood Cells % 3.0 H Platelet Count 57 L Platelet Estimate PLT APPEAR DECREASED Red Blood Count 3.22 L Red Cell Distribution Width 15.9 H White Blood Count 2.8 #L Medications Medications Current Medications Bicalutamide (Casodex) 50 mg QAM PO Last administered on 10/27/16 09:58; Admin Dose 50 MG; Start 09/07/16 at 09:00 Docusate Sodium (Colace) 100 mg BID PRN PO CONSTIPATION Last administered on 05:22; Admin Dose 100 MG; Start 09/07/16 at 00:00; Status Future Hold Escitalopram Oxalate (Lexapro) 5 mg DAILY PO Last administered on 10/27/16 09: 56; Admin Dose 5 MG; Start 09/07/16 at 09:00 Megestrol Acetate (Megace Susp) 400 mg BID PO Last administered on 10/27/16 09: 56; Admin Dose 400 MG; Start 09/07/16 at 09:00 Methylnaltrexone [place] (Relistor) 12 mg Q48H SC Last administered on 23:54; Admin Dose 12 MG; Start 09/07/16 at 00:00; Status Future Hold Ondansetron HCl (Zofran Tab) 4 mg Q6H PRN PO NAUSEA AND/OR VOMITING Last administered on 10/19/16 18:17; Admin Dose 4 MG; Start 09/07/16 at 00:00 Acetaminophen (Tylenol Tab) 500 mg Q4H PRN PO PAIN AND OR ELEVATED TEMP Last administered on 10/05/16 15:37; Admin Dose 500 MG; Start 09/07/16 at 21:30 IV Flush (NS 10 ml) 10 ml PRN PRN IV IV PROTOCOL; Start 09/11/16 at 10:00 Calcium/Vitamin D (Oyster Shell/ Vit-D (500/200)) 1 tab BID PO Last administered on 10/27/16 09:56; Admin Dose 1 TAB; Start 09/12/16 at 14:00 IV Flush 10 ml 10 ml PRN PRN IV IV PROTOCOL; Start 09/21/16 at 12:00 Ondansetron HCl/ Sodium Chloride (Zofran Inj/NS) 54 ml @ 216 mls/hr Q12H PRN IV NAUSEA AND/OR VOMITING; Start 09/29/16 at 22:00 Prednisone 5 mg 5 mg BID PO Last administered on 10/27/16 09:56; Admin Dose 5 MG; Start 09/29/16 at 21:00 Docetaxel 45 mg/ Sodium Chloride 100 ml @ 100 mls/hr Th@22 IV Last administered on 10/20/16 22:12; Admin Dose 100 MLS/HR; Start 10/06/16 at 22:00; Stop 10/27/16 at 22:59 Ondansetron HCl/ Dexamethasone/ Dextrose (Zofran Inj/ Decadron/D5W) 60 ml @ 252 mls/hr Th@2130 IV Last administered on 10/20/16 21:26; Admin Dose 252 MLS/ HR; Start 10/06/16 at 21:30; Stop 10/27/16 at 21:45 Bisacodyl (Dulcolax Supp) 10 mg DAILY PRN [place] CONSTIPATION Last administered on 10/07/16 03:07; Admin Dose 10 MG; Start 10/07/16 at 03:00 Fidaxomicin (Dificid) 200 mg BID PO Last administered on 10/27/16 09:56; Admin Dose 200 MG; Start 10/17/16 at 10:30 Hydromorphone HCl (Dilaudid) 2 mg Q3H PRN IV PAIN Last administered on 22:58; Admin Dose 2 MG; Start 10/19/16 at 15:30 Methadone HCl (Methadone Liq (Ped)) 3 mg Q6 PO Last administered on 10/27/16 17 :56; Admin Dose 3 MG; Start 10/19/16 at 18:00 Cholestyramine Resin 4 gm 4 gm BID PO Last administered on 10/27/16 09:56; Admin Dose 4 GM; Start 10/22/16 at 21:00 Filgrastim/ Dextrose (Neupogen/D5W) 51 ml @ 102 mls/hr DAILY@17 IVPB Last administered on 10/27/16 17:56; Admin Dose 102 MLS/HR; Start 10/25/16 at 17:00 Vancomycin HCl (Vancomycin Oral Syringe) 250 mg Q6 PO Last administered on 17:56; Admin Dose 250 MG; Start 10/25/16 at 18:00 Metronidazole 500 mg 500 mg Q8 PO Last administered on 10/27/16 15:20; Admin Dose 500 MG; Start 10/25/16 at 14:00 Sodium Chloride (NS) 1,000 ml @ 40 mls/hr Q24H IV Last administered on 00:09; Admin Dose 40 MLS/HR; Start 10/25/16 at 14:30 Fluconazole 100 mg 100 mg DAILY PO Last administered on 10/27/16 09:56; Admin Dose 100 MG; Start 10/26/16 at 16:00 Vancomycin HCl/ Sodium Chloride (Vancocin/NS) 150 ml @ 75 mls/hr Q8H IVPB ; Start 10/27/16 at 20:00 MICHAEL COELHO MD Oct 27, 2016 19:23
[2016-10-27] MEDS: VANCOMYCIN 750 MG in SOD CHLORIDE 0.9% 150 ML IVPB SCH (19:53)
[2016-10-27 20:56] VITALS: BP 105/70; RESP 20
[2016-10-27] MEDS: DEXTROSE 5% IV SCH (22:27)
[2016-10-27] MEDS: DEXAMETHASONE IV SCH (22:27)
[2016-10-27] MEDS: HYDROmorphONE 2 MG/ML SYG IV PRN (22:27)
[2016-10-27] MEDS: ONDANSETRON IV SCH (22:27)
[2016-10-27 23:00] VITALS: BP 98/67; PULSE 101; RESP 18
[2016-10-27 23:15] VITALS: BP 105/70; PULSE 102; RESP 18
[2016-10-27] MEDS: SOD CHLORIDE 0.9% IV SCH (23:18)
[2016-10-27] MEDS: DOCETAXEL IV SCH (23:18)
[2016-10-27 23:30] VITALS: BP 109/65; PULSE 95; RESP 18
[2016-10-27 23:45] VITALS: BP 97/63; PULSE 101; RESP 16
[2016-10-28 00:15] VITALS: BP 113/75; PULSE 99; RESP 18
[2016-10-28] MEDS: METHADONE (1 MG/1 ML PO SYG) PO SCH ×5 (00:25→23:40)
[2016-10-28 00:45] VITALS: BP 110/80; PULSE 107; RESP 18
[2016-10-28 01:45] VITALS: BP 111/64; PULSE 88; RESP 18
[2016-10-28 04:00] VITALS: BP 116/75; PULSE 104; RESP 18
[2016-10-28] MEDS: VANCOMYCIN 750 MG in SOD CHLORIDE 0.9% 150 ML IVPB SCH (04:51)
[2016-10-28 05:08] LABS: ADD SCAN DIFF NO
[2016-10-28 05:29] LABS: ABNORMAL IP MESSAGE 1; BASOPHILS % 0.7 % (0.0-2.0); HEMATOCRIT 25.7 % (42.0-52.0); HEMOGLOBIN 8.7 g/dl (14.0-18.0); LYMPHOCYTES # 0.7 10^3/ul (0.8-2.9); LYMPHOCYTES % 16.3 % (15.0-51.0); MEAN CORPUSCULAR HEMOGLOBIN 28.3 pg (29.0-33.0); MEAN CORPUSCULAR HGB CONC 33.9 g/dl (32.0-37.0); MEAN CORPUSCULAR VOLUME 83.7 fl (82.0-101.0); MEAN PLATELET VOLUME 10.4 fl (7.4-10.4); MONOCYTE # 0.5 10^3/ul (0.3-0.9); MONOCYTES % 12.8 % (0.0-11.0); NEUTROPHIL # 2.2 10^3/ul (1.6-7.5); NEUTROPHILS % 52.9 % (39.0-77.0); NUCLEATED RED BLOOD CELLS # 0.2 10^3/ul (0.0-0.0); NUCLEATED RED BLOOD CELLS% 4.5 /100WBC (0.0-0.0); PLATELET COUNT 45 10^3/UL (140-415); RED BLOOD COUNT 3.07 10^6/ul (4.70-6.10); RED CELL DISTRIBUTION WIDTH 15.5 % (11.5-14.5); WHITE BLOOD COUNT 4.2 10^3/ul (4.8-10.8)
[2016-10-28 05:30] LABS: POTASSIUM 3.4 mmol/L (3.5-5.1)
[2016-10-28 05:32] LABS: CREATININE 0.25 mg/dl (0.61-1.24)
[2016-10-28] MEDS: VANCOMYCIN HCL 250 MG/5ML POSYG PO SCH ×3 (06:28→18:46)
[2016-10-28] MEDS: metroNIDAZOLE 500 MG TAB PO SCH ×3 (06:28→22:48)
[2016-10-28] MEDS: SOD CHLORIDE 0.9% 1,000 ML IV SCH (06:29)
[2016-10-28 07:00] VITALS: BP 104/66; RESP 20
[2016-10-28] MEDS: HYDROmorphONE 2 MG/ML SYG IV PRN ×4 (07:52→17:01)
[2016-10-28] MEDS: FLUCONAZOLE 100 MG TAB PO SCH (09:00)
[2016-10-28] MEDS: MEGESTROL (40 MG/ML) 10ML CUP PO SCH ×2 (09:40→22:48)
[2016-10-28] MEDS: CHOLESTYRAMINE (LIGHT) 4 GM PACKET PO SCH ×2 (09:40→22:48)
[2016-10-28] MEDS: FIDAXOMICIN 200 MG TABLET PO SCH ×2 (09:42→22:48)
[2016-10-28] MEDS: ESCITALOPRAM 10 MG TAB PO SCH (09:43)
[2016-10-28] MEDS: CALCIUM/VITAMIN D (500/200) TAB PO SCH ×2 (09:43→22:48)
[2016-10-28] MEDS: predniSONE 5 MG TAB PO SCH ×2 (10:35→22:48)
[2016-10-28] MEDS: BICALUTAMIDE 50 MG TAB PO SCH (10:37)
--- NOTE | 2016-10-28 11:38 | PN ---
Date/Time of Note Date/Time of Note DATE: 10/28/16 TIME: 11:37 Assessment/Plan VTE Prophylaxis VTE Prophylaxis Intervention: SCD's Lines/Catheters IV Catheter Type (from Nrsg): PICC Line Central line still needed: Yes Urinary Cath still in place: Yes Reason Cath still needed: urinary retention Assessment/Plan Chief Complaint/Hosp Course ASSESSMENT AND PLAN: 1. Clostridium difficile colitis. Contact isolation. Patient is followed by Dr. Schuler group from infectious disease standpoint. Patient is currently on Questran, Dificid, Vanco and Flagyl. 2. Metastatic prostate cancer. Dr. Hernandez is following patient in oncology consultation. Continue chemotherapy and steroids. 3. Thrombocytopenia. Continue to monitor platelets. 4. Acute on chronic back pain. Dr. Ferguson is following the patient in pain management. Continue methadone and Dilaudid p.r.n. for breakthrough pain. 5. Anemia, this post blood transfusion, continue to monitor hemoglobin and hematocrit. 6. MRSA UTI, status post treatment 7. Protein calorie malnutrition, continue Megace, continue high-protein and high-calorie diet, continue tube feeding via NG tube. 8. Hyponatremia, continue IV fluids. Further recommendations based on clinical course. Plan of care discussed with Dr. Nichols. Problems: Exam/Review of Systems Vital Signs Vitals Vital Signs Date Time Temp Pulse Resp B/P Pulse Ox O2 Delivery O2 Flow Rate FiO2 10/28/16 07:00 98.7 113 20 104/66 99 10/28/16 04:00 Nasal Cannula Intake and Output 10/27/16 10/27/16 10/28/16 15:00 23:00 07:00 Intake Total 1791 ml 1520 ml Output Total 400 ml 1200 ml Balance 1391 ml 320 ml Exam GENERAL: Well-developed, cachectic male, currently is awake, alert. HEENT: Head is atraumatic, normocephalic. PERRLA. NGT. NECK: Supple. No mass, no thyromegaly. LUNGS: Clear bilaterally. No rhonchi, wheezes, rales noted. HEART: Normal S1, S2. No murmurs, gallops, clicks, rubs noted. ABDOMEN: Flat, soft, nondistended, nontender. Bowel sounds present. EXTREMITIES: No edema. SKIN: There is no rash, petechiae noted. NEUROLOGIC: The patient is awake, alert, and oriented x3. Results Result Diagram: 10/28/16 0445 10/28/16 0445 Results 24 hrs Laboratory Tests Test 10/28/16 04:45 Anion Gap 9 Basophils # 0.0 Basophils % 0.7 Blood Urea Nitrogen 5 L Calcium Level 7.0 L Carbon Dioxide Level 27 Chloride Level 99 Creatinine 0.25 L Eosinophils # 0.0 Eosinophils % 0.0 Glucose Level 157 Hematocrit 25.7 L Hemoglobin 8.7 L Lymphocytes # 0.7 L Lymphocytes % 16.3 Mean Corpuscular Hemoglobin 28.3 L Mean Corpuscular Hemoglobin Concent 33.9 Mean Corpuscular Volume 83.7 Mean Platelet Volume 10.4 # Monocytes # 0.5 Monocytes % 12.8 H Neutrophils # 2.2 Neutrophils % 52.9 Nucleated Red Blood Cells # 0.2 H Nucleated Red Blood Cells % 4.5 H Platelet Count 45 L Potassium Level 3.4 L Red Blood Count 3.07 L Red Cell Distribution Width 15.5 H Sodium Level 132 L White Blood Count 4.2 #L Medications Medications Current Medications Bicalutamide (Casodex) 50 mg QAM PO Last administered on 10/28/16 10:37; Admin Dose 50 MG; Start 09/07/16 at 09:00 Docusate Sodium (Colace) 100 mg BID PRN PO CONSTIPATION Last administered on 05:22; Admin Dose 100 MG; Start 09/07/16 at 00:00; Status Future Hold Escitalopram Oxalate (Lexapro) 5 mg DAILY PO Last administered on 10/28/16 09: 43; Admin Dose 5 MG; Start 09/07/16 at 09:00 Megestrol Acetate (Megace Susp) 400 mg BID PO Last administered on 10/28/16 09 :40; Admin Dose 400 MG; Start 09/07/16 at 09:00 Methylnaltrexone [place] (Relistor) 12 mg Q48H SC Last administered on 23:54; Admin Dose 12 MG; Start 09/07/16 at 00:00; Status Future Hold Ondansetron HCl (Zofran Tab) 4 mg Q6H PRN PO NAUSEA AND/OR VOMITING Last administered on 10/19/16 18:17; Admin Dose 4 MG; Start 09/07/16 at 00:00 Acetaminophen (Tylenol Tab) 500 mg Q4H PRN PO PAIN AND OR ELEVATED TEMP Last administered on 10/05/16 15:37; Admin Dose 500 MG; Start 09/07/16 at 21:30 IV Flush (NS 10 ml) 10 ml PRN PRN IV IV PROTOCOL; Start 09/11/16 at 10:00 Calcium/Vitamin D (Oyster Shell/ Vit-D (500/200)) 1 tab BID PO Last administered on 10/28/16 09:43; Admin Dose 1 TAB; Start 09/12/16 at 14:00 IV Flush 10 ml 10 ml PRN PRN IV IV PROTOCOL; Start 09/21/16 at 12:00 Ondansetron HCl/ Sodium Chloride (Zofran Inj/NS) 54 ml @ 216 mls/hr Q12H PRN IV NAUSEA AND/OR VOMITING; Start 09/29/16 at 22:00 Prednisone (Prednisone) 5 mg BID PO Last administered on 10/28/16 10:35; Admin Dose 5 MG; Start 09/29/16 at 21:00 Bisacodyl (Dulcolax Supp) 10 mg DAILY PRN [place] CONSTIPATION Last administered on 10/07/16 03:07; Admin Dose 10 MG; Start 10/07/16 at 03:00 Fidaxomicin (Dificid) 200 mg BID PO Last administered on 10/28/16 09:42; Admin Dose 200 MG; Start 10/17/16 at 10:30 Hydromorphone HCl (Dilaudid) 2 mg Q3H PRN IV PAIN Last administered on 10:35; Admin Dose 2 MG; Start 10/19/16 at 15:30 Methadone HCl (Methadone Liq (Ped)) 3 mg Q6 PO Last administered on 10/28/16 06:29; Admin Dose 3 MG; Start 10/19/16 at 18:00 Cholestyramine Resin 4 gm 4 gm BID PO Last administered on 10/28/16 09:40; Admin Dose 4 GM; Start 10/22/16 at 21:00 Filgrastim/ Dextrose (Neupogen/D5W) 51 ml @ 102 mls/hr DAILY@17 IVPB Last administered on 10/27/16 17:56; Admin Dose 102 MLS/HR; Start 10/25/16 at 17:00 Vancomycin HCl (Vancomycin Oral Syringe) 250 mg Q6 PO Last administered on 10/28 06:28; Admin Dose 250 MG; Start 10/25/16 at 18:00 Metronidazole 500 mg 500 mg Q8 PO Last administered on 10/28/16 06:28; Admin Dose 500 MG; Start 10/25/16 at 14:00 Sodium Chloride (NS) 1,000 ml @ 40 mls/hr Q24H IV Last administered on 06:29; Admin Dose 40 MLS/HR; Start 10/25/16 at 14:30 Fluconazole 100 mg 100 mg DAILY PO Last administered on 10/27/16 09:56; Admin Dose 100 MG; Start 10/26/16 at 16:00 Vancomycin HCl/ Sodium Chloride (Vancocin/NS) 150 ml @ 75 mls/hr Q8H IVPB Last administered on 10/28/16 04:51; Admin Dose 75 MLS/HR; Start 10/27/16 at 20: 00 Miscellaneous Information (*Rx Drug Level Order Reminder*) VANCO TROUGH @ 1, 900 ON... ONCE ONCE XX ; Start 10/28/16 at 19:00; Stop 10/28/16 at 19:01 SREE GRIFFITH Oct 28, 2016 11:38
--- NOTE | 2016-10-28 12:32 | PN ---
DATE: 10/28/2016 SUBJECTIVE: The patient remained stable overnight. No fevers. WBC today 4.2, no bands. BUN 5, creatinine 0.25. MICROBIOLOGY: Urine culture yesterday grew Staphylococcus aureus. This morning culture reading gra m-negative rods, more than 100,000 colonies. ANTIMICROBIALS: 1. The patient was started yesterday on IV vancomycin for concern of Staphylococcus aureus growing in his urine. 2. He is also on oral fluconazole. 3. Oral vancomycin. 4. Flagyl. 5. Questran. 6. Dificid. INDWELLINGS: PICC, White, NG tube. PHYSICAL EXAMINATION: GENERAL: This is a fragile, cachectic elderly man who is lying comfortably in bed. HEENT: Head atraumatic, normocephalic. Sclerae anicteric. Buccal mucosa dry. NECK: Supple, trachea midline. CHEST: Rise symmetrical. Breath sounds diminished to bases. HEART: S1, S2. ABDOMEN: Soft. Bowel tones present. EXTREMITIES: Without cyanosis. ASSESSMENT: 1. Sepsis. 2. Recurrent urinary tract infection with a history of MRSA on 10/03/2016. Repeat urine culture fr om 10/26/2016 growing gram-negative rods. 3. Ongoing Clostridium difficile colitis. 4. Metastatic prostate cancer. 5. Cachexia. PLAN: We are going to start patient on Merrem to cover gram-negative rods that he is growing in the urine. Continue other antibiotics. Await for final cultures. Discontinue IV vancomycin. Dictated By: EUNICE GUNTER [employer] OFFICE MANAGER for PINO MULLINS/[place]RI[place] Conf#: [id number] DID#: [id number]
--- NOTE | 2016-10-28 13:54 | CONS ---
Date/Time of Note Date/Time of Note DATE: 10/28/16 TIME: 13:53 Assessment/Plan Assessment/Plan Chief Complaint/Hosp Course Metastatic prostate cancer. FAMILY CONFERENCE RE DX, PROGNOSIS AND TREATMENT OPTIONS RE: chemotherapy and steroids - PER PROTOCOL Chemotherapy Docetaxel (Taxotere) 30 mg/m2 IV over 30 minutes once per day on days 1, 8, 15, 22, 29 Prednisone (Sterapred) 5 mg PO BID on days 1 to 42 Supportive medications Dexamethasone (Decadron) 8 mg (route not specified) once 1 hour before Docetaxel (Taxotere) Antiemetics "according to local practice" 42-day cycle for up to 5 cycles NEUTROPENIA NEUPOGEN ANEMIA POST PRBC MONITOR CLOSELY OBSERVE FOR BLEEDING AND HEMOLYSIS Thrombocytopenia. Continue to monitor platelets. transfuse as needed PANCYTOPENIA MONITOR DECONDITIONING PT Acute on chronic back pain. PAIN CONTROL C DIFF COLITIS ATB PER ID Problems: Consultation Date/Type/Reason Admit Date/Time Sep 06, 2016 at 22:01 Initial Consult Date 09/08/16 Type of Consultation: hemeon Referring Provider: TIMOTHY MARAVILLA MD 24 HR Interval Summary Free Text/Dictation ALL NOTED WEAK Exam/Review of Systems Vital Signs Vitals Vital Signs Date Time Temp Pulse Resp B/P Pulse Ox O2 Delivery O2 Flow Rate FiO2 10/28/16 07:00 98.7 113 20 104/66 99 10/28/16 04:00 Nasal Cannula Intake and Output 10/27/16 10/27/16 10/28/16 15:00 23:00 07:00 Intake Total 1791 ml 1520 ml Output Total 400 ml 1200 ml Balance 1391 ml 320 ml Exam GENERAL: The patient is lethargic but arousable. HEENT: No eye discharge. Oropharynx revealed dry mucosa. NECK: No mass. LUNGS: Occasional coarse breath sounds. CARDIOVASCULAR: S1, S2 normal. Sinus tachycardia. ABDOMEN: Soft, nondistended, nontender. EXTREMITIES: No leg edema. Cachectic extremities. Results Result Diagram: 10/28/165 10/28/165 Results 24 hrs Laboratory Tests Test 10/28/16 04:45 Anion Gap 9 Basophils # 0.0 Basophils % 0.7 Blood Urea Nitrogen 5 L Calcium Level 7.0 L Carbon Dioxide Level 27 Chloride Level 99 Creatinine 0.25 L Eosinophils # 0.0 Eosinophils % 0.0 Glucose Level 157 Hematocrit 25.7 L Hemoglobin 8.7 L Lymphocytes # 0.7 L Lymphocytes % 16.3 Mean Corpuscular Hemoglobin 28.3 L Mean Corpuscular Hemoglobin Concent 33.9 Mean Corpuscular Volume 83.7 Mean Platelet Volume 10.4 # Monocytes # 0.5 Monocytes % 12.8 H Neutrophils # 2.2 Neutrophils % 52.9 Nucleated Red Blood Cells # 0.2 H Nucleated Red Blood Cells % 4.5 H Platelet Count 45 L Potassium Level 3.4 L Red Blood Count 3.07 L Red Cell Distribution Width 15.5 H Sodium Level 132 L White Blood Count 4.2 #L Medications Medications Current Medications Bicalutamide (Casodex) 50 mg QAM PO Last administered on 10/28/16 10:37; Admin Dose 50 MG; Start 09/07/16 at 09:00 Docusate Sodium (Colace) 100 mg BID PRN PO CONSTIPATION Last administered on 05:22; Admin Dose 100 MG; Start 09/07/16 at 00:00; Status Future Hold Escitalopram Oxalate (Lexapro) 5 mg DAILY PO Last administered on 10/28/16 09: 43; Admin Dose 5 MG; Start 09/07/16 at 09:00 Megestrol Acetate (Megace Susp) 400 mg BID PO Last administered on 10/28/16 09 :40; Admin Dose 400 MG; Start 09/07/16 at 09:00 Methylnaltrexone [place] (Relistor) 12 mg Q48H SC Last administered on 23:54; Admin Dose 12 MG; Start 09/07/16 at 00:00; Status Future Hold Ondansetron HCl (Zofran Tab) 4 mg Q6H PRN PO NAUSEA AND/OR VOMITING Last administered on 10/19/16 18:17; Admin Dose 4 MG; Start 09/07/16 at 00:00 Acetaminophen (Tylenol Tab) 500 mg Q4H PRN PO PAIN AND OR ELEVATED TEMP Last administered on 10/05/16 15:37; Admin Dose 500 MG; Start 09/07/16 at 21:30 IV Flush (NS 10 ml) 10 ml PRN PRN IV IV PROTOCOL; Start 09/11/16 at 10:00 Calcium/Vitamin D (Oyster Shell/ Vit-D (500/200)) 1 tab BID PO Last administered on 10/28/16 09:43; Admin Dose 1 TAB; Start 09/12/16 at 14:00 IV Flush 10 ml 10 ml PRN PRN IV IV PROTOCOL; Start 09/21/16 at 12:00 Ondansetron HCl/ Sodium Chloride (Zofran Inj/NS) 54 ml @ 216 mls/hr Q12H PRN IV NAUSEA AND/OR VOMITING; Start 09/29/16 at 22:00 Prednisone (Prednisone) 5 mg BID PO Last administered on 10/28/16 10:35; Admin Dose 5 MG; Start 09/29/16 at 21:00 Bisacodyl (Dulcolax Supp) 10 mg DAILY PRN [place] CONSTIPATION Last administered on 10/07/16 03:07; Admin Dose 10 MG; Start 10/07/16 at 03:00 Fidaxomicin (Dificid) 200 mg BID PO Last administered on 10/28/16 09:42; Admin Dose 200 MG; Start 10/17/16 at 10:30 Hydromorphone HCl (Dilaudid) 2 mg Q3H PRN IV PAIN Last administered on 13:38; Admin Dose 2 MG; Start 10/19/16 at 15:30 Methadone HCl (Methadone Liq (Ped)) 3 mg Q6 PO Last administered on 10/28/16 13:38; Admin Dose 3 MG; Start 10/19/16 at 18:00 Cholestyramine Resin 4 gm 4 gm BID PO Last administered on 10/28/16 09:40; Admin Dose 4 GM; Start 10/22/16 at 21:00 Filgrastim/ Dextrose (Neupogen/D5W) 51 ml @ 102 mls/hr DAILY@17 IVPB Last administered on 10/27/16 17:56; Admin Dose 102 MLS/HR; Start 10/25/16 at 17:00 Vancomycin HCl (Vancomycin Oral Syringe) 250 mg Q6 PO Last administered on 10/28 06:28; Admin Dose 250 MG; Start 10/25/16 at 18:00 Metronidazole 500 mg 500 mg Q8 PO Last administered on 10/28/16 13:41; Admin Dose 500 MG; Start 10/25/16 at 14:00 Sodium Chloride (NS) 1,000 ml @ 40 mls/hr Q24H IV Last administered on 06:29; Admin Dose 40 MLS/HR; Start 10/25/16 at 14:30 Fluconazole 100 mg 100 mg DAILY PO Last administered on 10/27/16 09:56; Admin Dose 100 MG; Start 10/26/16 at 16:00 Meropenem (Merrem 500 Mg/ 100 ml (Pmx)) 100 ml @ 200 mls/hr Q12 IVPB ; Start at 21:00 JARAD CHOI MD Oct 28, 2016 13:54
--- NOTE | 2016-10-28 15:51 | CONS ---
Date/Time of Note Date/Time of Note DATE: 10/28/16 TIME: 15:50 Assessment/Plan Assessment/Plan Additional Assessment/Plan 1. Clostridium difficile colitis. 2. Abdominal pain: worsening, associated with nausea and vomiting. ddx include C. Diff colitis vs side effects from chemotherapy vs gastritis, duodenitis, esophagitis. 3. anemia 4. Metastatic prostate cancer. Dr. Hernandez is following patient in oncology consultation. Continue chemotherapy and steroids. 5. MRSA 6. Abnormal alkaline po4 secondary to jose mets. 7.diarrhea secondary to C.Difficile,better 8.neutropenia,on neupogen,better Recommendations: 1. Continue vancomycin for C. Diff. Consider fidaxomicin per ID. 3. continue pain control 4. ordered occult stool blood negative 7. continue other supportive care per pcp and other consultants 8.Questran,increase dose 9,enteral feeding,clinically looks better Consultation Date/Type/Reason Admit Date/Time Sep 06, 2016 at 22:01 Initial Consult Date 09/08/16 [facility]erring Provider: TIMOTHY MARAVILLA MD 24 HR Interval Summary Constitutional: improved, no complaints Exam/Review of Systems Vital Signs Vitals Vital Signs Date Time Temp Pulse Resp B/P Pulse Ox O2 Delivery O2 Flow Rate FiO2 10/28/16 07:00 98.7 113 20 104/66 99 10/28/16 04:00 Nasal Cannula Intake and Output 10/27/16 10/27/16 10/28/16 15:00 23:00 07:00 Intake Total 1791 ml 1520 ml Output Total 400 ml 1200 ml Balance 1391 ml 320 ml Exam Constitutional: alert, oriented, well developed Psych: nl mood/affect, no complaints Head: atraumatic, normocephalic Eyes: EOMI, PERRL, nl conjunctiva, nl lids, nl sclera ENMT: nl external ears & nose, nl lips & teeth, nl nasal mucosa & septum Neck: non-tender, supple Respiratory: clear to auscultation, normal air movement Cardiovascular: nl pulses, regular rate and rhythm Gastrointestinal: nl liver, spleen, non-tender, soft Musculoskeletal: nl extremities to inspection, nl gait and stance Extremities: normal pulses 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: S[employer] II-XII intact, nl mental status, nl speech, nl strength Skin: nl turgor, No rash or lesions Lymph: nl lymph nodes Results Result Diagram: 10/28/16 0445 10/28/16 0445 Results 24 hrs Laboratory Tests Test 10/28/16 04:45 Anion Gap 9 Basophils # 0.0 Basophils % 0.7 Blood Urea Nitrogen 5 L Calcium Level 7.0 L Carbon Dioxide Level 27 Chloride Level 99 Creatinine 0.25 L Eosinophils # 0.0 Eosinophils % 0.0 Glucose Level 157 Hematocrit 25.7 L Hemoglobin 8.7 L Lymphocytes # 0.7 L Lymphocytes % 16.3 Mean Corpuscular Hemoglobin 28.3 L Mean Corpuscular Hemoglobin Concent 33.9 Mean Corpuscular Volume 83.7 Mean Platelet Volume 10.4 # Monocytes # 0.5 Monocytes % 12.8 H Neutrophils # 2.2 Neutrophils % 52.9 Nucleated Red Blood Cells # 0.2 H Nucleated Red Blood Cells % 4.5 H Platelet Count 45 L Potassium Level 3.4 L Red Blood Count 3.07 L Red Cell Distribution Width 15.5 H Sodium Level 132 L White Blood Count 4.2 #L Medications Medications Current Medications Bicalutamide (Casodex) 50 mg QAM PO Last administered on 10/28/16 10:37; Admin Dose 50 MG; Start 09/07/16 at 09:00 Docusate Sodium (Colace) 100 mg BID PRN PO CONSTIPATION Last administered on 05:22; Admin Dose 100 MG; Start 09/07/16 at 00:00; Status Future Hold Escitalopram Oxalate (Lexapro) 5 mg DAILY PO Last administered on 10/28/16 09: 43; Admin Dose 5 MG; Start 09/07/16 at 09:00 Megestrol Acetate (Megace Susp) 400 mg BID PO Last administered on 10/28/16 09 :40; Admin Dose 400 MG; Start 09/07/16 at 09:00 Methylnaltrexone [place] (Relistor) 12 mg Q48H SC Last administered on 23:54; Admin Dose 12 MG; Start 09/07/16 at 00:00; Status Future Hold Ondansetron HCl (Zofran Tab) 4 mg Q6H PRN PO NAUSEA AND/OR VOMITING Last administered on 10/19/16 18:17; Admin Dose 4 MG; Start 09/07/16 at 00:00 Acetaminophen (Tylenol Tab) 500 mg Q4H PRN PO PAIN AND OR ELEVATED TEMP Last administered on 10/05/16 15:37; Admin Dose 500 MG; Start 09/07/16 at 21:30 IV Flush (NS 10 ml) 10 ml PRN PRN IV IV PROTOCOL; Start 09/11/16 at 10:00 Calcium/Vitamin D ([place]/ Vit-D (500/200)) 1 tab BID PO Last administered on 10/28/16 09:43; Admin Dose 1 TAB; Start 09/12/16 at 14:00 IV Flush 10 ml 10 ml PRN PRN IV IV PROTOCOL; Start 09/21/16 at 12:00 Ondansetron HCl/ Sodium Chloride (Zofran Inj/NS) 54 ml @ 216 mls/hr Q12H PRN IV NAUSEA AND/OR VOMITING; Start 09/29/16 at 22:00 Prednisone (Prednisone) 5 mg BID PO Last administered on 10/28/16 10:35; Admin Dose 5 MG; Start 09/29/16 at 21:00 Bisacodyl (Dulcolax Supp) 10 mg DAILY PRN [place] CONSTIPATION Last administered on 10/07/16 03:07; Admin Dose 10 MG; Start 10/07/16 at 03:00 Fidaxomicin (Dificid) 200 mg BID PO Last administered on 10/28/16 09:42; Admin Dose 200 MG; Start 10/17/16 at 10:30 Hydromorphone HCl (Dilaudid) 2 mg Q3H PRN IV PAIN Last administered on 13:38; Admin Dose 2 MG; Start 10/19/16 at 15:30 Methadone HCl (Methadone Liq (Ped)) 3 mg Q6 PO Last administered on 10/28/16 13:38; Admin Dose 3 MG; Start 10/19/16 at 18:00 Cholestyramine Resin 4 gm 4 gm BID PO Last administered on 10/28/16 09:40; Admin Dose 4 GM; Start 10/22/16 at 21:00 Filgrastim/ Dextrose (Neupogen/D5W) 51 ml @ 102 mls/hr DAILY@17 IVPB Last administered on 10/27/16 17:56; Admin Dose 102 MLS/HR; Start 10/25/16 at 17:00 Vancomycin HCl (Vancomycin Oral Syringe) 250 mg Q6 PO Last administered on 10/28 06:28; Admin Dose 250 MG; Start 10/25/16 at 18:00 Metronidazole 500 mg 500 mg Q8 PO Last administered on 10/28/16 13:41; Admin Dose 500 MG; Start 10/25/16 at 14:00 Sodium Chloride (NS) 1,000 ml @ 40 mls/hr Q24H IV Last administered on 06:29; Admin Dose 40 MLS/HR; Start 10/25/16 at 14:30 Fluconazole 100 mg 100 mg DAILY PO Last administered on 10/27/16 09:56; Admin Dose 100 MG; Start 10/26/16 at 16:00 Meropenem (Merrem 500 Mg/ 100 ml (Pmx)) 100 ml @ 200 mls/hr Q12 IVPB ; Start at 21:00 MICHAEL COELHO MD Oct 28, 2016 15:51
[2016-10-28] MEDS ORDERED: HYDROmorphONE 1 MG/ML SYG IV STA (17:08)
[2016-10-28] MEDS ORDERED: HYDROmorphONE 1 MG/ML SYG IV SCH ×3 (18:00→18:30)
[2016-10-28] MEDS ORDERED: HYDROmorphONE 2 MG/ML SYG IV STA (18:09)
[2016-10-28] MEDS: FILGRASTIM 300 MCG in DEXTROSE 5% 50 ML IVPB SCH (18:46)
[2016-10-28 19:19] VITALS: BP 124/78; RESP 20
[2016-10-28] MEDS: MEROPENEM 500 MG/100 ML (PMX) 100 ML IVPB SCH (22:47)
[2016-10-29] VITALS (11 sets, daily range): BP systolic 110–138; BP diastolic 71–89; PULSE 90–119; RESP 15–22
[2016-10-29] MEDS: HYDROmorphONE 2 MG/ML SYG IV PRN ×3 (00:57→17:31)
[2016-10-29] MEDS ORDERED: ALBUTEROL/IPRATROPIUM (NEB) 3 ML AMP HHN PRN (03:30)
[2016-10-29] MEDS ORDERED: RACEPINEPHRINE 2.25%(NEB) 0.5 ML AMP HHN ONE (03:30)
[2016-10-29] MEDS: DEXAMETHASONE 4 MG/ML 1 ML INJ IV SCH ×4 (03:58→21:53)
[2016-10-29 04:53] LABS: AADO2 Arterial 59.3 mmHg (7.0-24.0); Allen Test ACCEPTAB; Arterial Base Excess 1.7 mmol/L (-3.0-3); Arterial COHb 0.3 % (0.0-3.0); Arterial Fraction of Oxyhgb 97.8 % (93.0-99.0); Arterial HCO3 25.5 mmol/L (22.0-26.0); Arterial MetHb 0.2 % (0.0-1.5); Arterial Total Hemglobin 9.8 g/dl (12.0-18.0); MODE COOL AEROSOL
[2016-10-29] MEDS: METHADONE (1 MG/1 ML PO SYG) PO SCH ×3 (06:00→18:00)
[2016-10-29] MEDS: metroNIDAZOLE 500 MG TAB PO SCH ×3 (06:00→21:03)
[2016-10-29] MEDS: VANCOMYCIN HCL 250 MG/5ML POSYG PO SCH ×4 (06:00→18:00)
[2016-10-29 07:20] LABS: ADD SCAN DIFF NO
[2016-10-29 07:44] LABS: EOSINOPHILS % 0.1 % (0.0-7.0); HEMATOCRIT 23.3 % (42.0-52.0); LYMPHOCYTES # 0.2 10^3/ul (0.8-2.9); MEAN CORPUSCULAR HEMOGLOBIN 29.1 pg (29.0-33.0); MEAN CORPUSCULAR HGB CONC 34.4 g/dl (32.0-37.0); MEAN CORPUSCULAR VOLUME 84.4 fl (82.0-101.0); MEAN PLATELET VOLUME 8.1 fl (7.4-10.4); NEUTROPHIL # 3.9 10^3/ul (1.6-7.5); NEUTROPHILS % 92.9 % (39.0-77.0); NUCLEATED RED BLOOD CELLS # 0.1 10^3/ul (0.0-0.0); NUCLEATED RED BLOOD CELLS% 2.5 /100WBC (0.0-0.0); PLATELET COUNT 33 10^3/UL (140-440); RED BLOOD COUNT 2.76 10^6/ul (4.70-6.10); RED CELL DISTRIBUTION WIDTH 15.9 % (11.5-14.5); WHITE BLOOD COUNT 4.2 10^3/ul (4.8-10.8)
[2016-10-29] MEDS: SOD CHLORIDE 0.9% 1,000 ML IV SCH (10:22)
[2016-10-29] MEDS: CHOLESTYRAMINE (LIGHT) 4 GM PACKET PO SCH ×2 (10:28→21:00)
[2016-10-29] MEDS: CALCIUM/VITAMIN D (500/200) TAB PO SCH ×2 (10:31→21:00)
[2016-10-29] MEDS: MEGESTROL (40 MG/ML) 10ML CUP PO SCH ×2 (10:31→21:00)
[2016-10-29] MEDS: predniSONE 5 MG TAB PO SCH ×2 (10:31→21:00)
[2016-10-29] MEDS: ESCITALOPRAM 10 MG TAB PO SCH (10:31)
[2016-10-29] MEDS: BICALUTAMIDE 50 MG TAB PO SCH (10:32)
[2016-10-29] MEDS: FLUCONAZOLE 100 MG TAB PO SCH (10:32)
[2016-10-29] MEDS: FIDAXOMICIN 200 MG TABLET PO SCH ×2 (10:32→21:00)
--- NOTE | 2016-10-29 10:49 | RADRPT ---
PROCEDURE: XR Chest AP portable CLINICAL INDICATION: Stridor, check NG tube placement TECHNIQUE: An AP portable radiograph of the chest was submitted. COMPARISON: 10/26/2016 FINDINGS: Support Hardware: An NG tube is again satisfactorily positioned with the tip in the stomach. A left upper extremity PICC catheter is again evident with the tip appearing to have been advanced now pro jecting through the inferior right atrium. Cardiovascular: The cardiovascular silhouette appears unremarkable. Lung [place]: A suboptimal inspiration compresses lung parenchyma with the lungs otherwise clear. Pleural Spaces: No pneumothorax or pleural effusion is identified. Osseous Structures: The osseous elements appear rarefied with mild degenerative thoracic spine ayoub es again noted. Soft Tissues: The subglottic airway appears steepled which can be seen in croup. IMPRESSION: 1. The NG tube remains satisfactorily positioned, while the left upper extremity PICC catheter tip has been advanced to the inferior right atrium. 2. Slight steepling of the subglottic airway which can be seen in croup. 3. Otherwise, stable and unremarkable portable chest. Physician Bruce Date Time Electronically viewed and signed by Physician Bruce on 10/29/2016 10:49 /
--- NOTE | 2016-10-29 11:10 | CONS ---
Date/Time of Note Date/Time of Note DATE: 10/29/16 TIME: 11:10 Assessment/Plan Assessment/Plan Chief Complaint/Hosp Course Metastatic prostate cancer. FAMILY CONFERENCE RE DX, PROGNOSIS AND TREATMENT OPTIONS RE: chemotherapy and steroids - PER PROTOCOL Chemotherapy Docetaxel (Taxotere) 30 mg/m2 IV over 30 minutes once per day on days 1, 8, 15, 22, 29 Prednisone (Sterapred) 5 mg PO BID on days 1 to 42 Supportive medications Dexamethasone (Decadron) 8 mg (route not specified) once 1 hour before Docetaxel (Taxotere) Antiemetics "according to local practice" 42-day cycle for up to 5 cycles NEUTROPENIA NEUPOGEN ANEMIA POST PRBC MONITOR CLOSELY OBSERVE FOR BLEEDING AND HEMOLYSIS Thrombocytopenia. Continue to monitor platelets. transfuse as needed PANCYTOPENIA MONITOR DECONDITIONING PT Acute on chronic back pain. PAIN CONTROL C DIFF COLITIS ATB PER ID Problems: Consultation Date/Type/Reason Admit Date/Time Sep 06, 2016 at 22:01 Initial Consult Date 09/08/16 Type of Consultation: hemeon Referring Provider: TIMOTHY MARAVILLA MD 24 HR Interval Summary Free Text/Dictation ALL NOTED Exam/Review of Systems Vital Signs Vitals Vital Signs Date Time Temp Pulse Resp B/P Pulse Ox O2 Delivery O2 Flow Rate FiO2 10/29/16 08:26 97 10/29/16 07:49 98.5 18 122/76 99 10/29/16 04:50 High Flow 10/29/16 04:50 10.0 10/29/16 04:50 60 Intake and Output 10/28/16 10/28/16 10/29/16 15:00 23:00 07:00 Intake Total 1100 ml Output Total 1200 ml Balance -100 ml Exam GENERAL: The patient is lethargic but arousable. HEENT: No eye discharge. Oropharynx revealed dry mucosa. NECK: No mass. LUNGS: Occasional coarse breath sounds. CARDIOVASCULAR: S1, S2 normal. Sinus tachycardia. ABDOMEN: Soft, nondistended, nontender. EXTREMITIES: No leg edema. Cachectic extremities. Results Result Diagram: 10/29/16 0640 10/28/16 0445 Results 24 hrs Laboratory Tests Test 10/28/16 20:27 10/29/16 03:30 10/29/16 06:40 Bedside Glucose 108 Arterial Blood HCO3 25.5 Arterial Blood Base Excess 1.7 Arterial Blood Oxygen Saturation 98.3 H Rico Test ACCEPTAB Arterial Blood Gas Puncture Site Right Radial Arterial Blood Carboxyhemoglobin 0.3 Arterial Blood Date Drawn 10/29/2016 3:38:39 AM Arterial Blood Methemoglobin 0.2 Arterial Blood pCO2 (Temp correct) 36.8 Arterial Blood pH (Temp corrected) 7.458 H Arterial Blood pO2 (Temp corrected) 147.5 H Blood Gas A-a O2 Differential 59.3 H Blood Gas Actual Respiration Rate 22 Blood Gas Modality COOL AEROSOL Blood Gas Notified Time 10/29/2016 3:46:07 AM Blood Gas Notified Whom MG Blood Gas Specimen Source Blood arterial Blood Gas Temperature 37.0 FiO2 35.0 Oxyhemoglobin Percent 97.8 Total Hemoglobin 9.8 L Basophils # 0.0 Basophils % 0.0 Blood Morphology Comment Eosinophils # 0.0 Eosinophils % 0.1 Hematocrit 23.3 L Hemoglobin 8.0 L Lymphocytes # 0.2 L Lymphocytes % 6.0 L Mean Corpuscular Hemoglobin 29.1 Mean Corpuscular Hemoglobin Concent 34.4 Mean Corpuscular Volume 84.4 Mean Platelet Volume 8.1 # Monocytes # 0.0 L Monocytes % 1.0 Neutrophils # 3.9 Neutrophils % 92.9 H Nucleated Red Blood Cells # 0.1 H Nucleated Red Blood Cells % 2.5 H Platelet Count 33 #L Red Blood Count 2.76 L Red Cell Distribution Width 15.9 H White Blood Count 4.2 L Medications Medications Current Medications Bicalutamide (Casodex) 50 mg QAM PO Last administered on 10/28/16 10:37; Admin Dose 50 MG; Start 09/07/16 at 09:00 Docusate Sodium (Colace) 100 mg BID PRN PO CONSTIPATION Last administered on 05:22; Admin Dose 100 MG; Start 09/07/16 at 00:00; Status Future Hold Escitalopram Oxalate (Lexapro) 5 mg DAILY PO Last administered on 10/28/16 09: 43; Admin Dose 5 MG; Start 09/07/16 at 09:00 Megestrol Acetate (Megace Susp) 400 mg BID PO Last administered on 10/28/16 22 :48; Admin Dose 400 MG; Start 09/07/16 at 09:00 Methylnaltrexone [place] (Relistor) 12 mg Q48H SC Last administered on 23:54; Admin Dose 12 MG; Start 09/07/16 at 00:00; Status Future Hold Ondansetron HCl (Zofran Tab) 4 mg Q6H PRN PO NAUSEA AND/OR VOMITING Last administered on 10/19/16 18:17; Admin Dose 4 MG; Start 09/07/16 at 00:00 Acetaminophen (Tylenol Tab) 500 mg Q4H PRN PO PAIN AND OR ELEVATED TEMP Last administered on 10/05/16 15:37; Admin Dose 500 MG; Start 09/07/16 at 21:30 IV Flush (NS 10 ml) 10 ml PRN PRN IV IV PROTOCOL; Start 09/11/16 at 10:00 Calcium/Vitamin D (Oyster Shell/ Vit-D (500/200)) 1 tab BID PO Last administered on 10/28/16 22:48; Admin Dose 1 TAB; Start 09/12/16 at 14:00 IV Flush 10 ml 10 ml PRN PRN IV IV PROTOCOL; Start 09/21/16 at 12:00 Ondansetron HCl/ Sodium Chloride (Zofran Inj/NS) 54 ml @ 216 mls/hr Q12H PRN IV NAUSEA AND/OR VOMITING; Start 09/29/16 at 22:00 Prednisone (Prednisone) 5 mg BID PO Last administered on 10/28/16 22:48; Admin Dose 5 MG; Start 09/29/16 at 21:00 Bisacodyl (Dulcolax Supp) 10 mg DAILY PRN [place] CONSTIPATION Last administered on 10/07/16 03:07; Admin Dose 10 MG; Start 10/07/16 at 03:00 Fidaxomicin (Dificid) 200 mg BID PO Last administered on 10/28/16 22:48; Admin Dose 200 MG; Start 10/17/16 at 10:30 Methadone HCl (Methadone Liq (Ped)) 3 mg Q6 PO Last administered on 10/28/16 23:40; Admin Dose 3 MG; Start 10/19/16 at 18:00 Cholestyramine Resin 4 gm 4 gm BID PO Last administered on 10/28/16 22:48; Admin Dose 4 GM; Start 10/22/16 at 21:00 Filgrastim/ Dextrose (Neupogen/D5W) 51 ml @ 102 mls/hr DAILY@17 IVPB Last administered on 10/28/16 18:46; Admin Dose 102 MLS/HR; Start 10/25/16 at 17:00 Vancomycin HCl (Vancomycin Oral Syringe) 250 mg Q6 PO Last administered on 10/29 00:00; Admin Dose 250 MG; Start 10/25/16 at 18:00 Metronidazole 500 mg 500 mg Q8 PO Last administered on 10/28/16 22:48; Admin Dose 500 MG; Start 10/25/16 at 14:00 Sodium Chloride (NS) 1,000 ml @ 40 mls/hr Q24H IV Last administered on 10:22; Admin Dose 40 MLS/HR; Start 10/25/16 at 14:30 Fluconazole 100 mg 100 mg DAILY PO Last administered on 10/28/16 09:00; Admin Dose 100 MG; Start 10/26/16 at 16:00 Meropenem (Merrem 500 Mg/ 100 ml (Pmx)) 100 ml @ 200 mls/hr Q12 IVPB Last administered on 10/28/16 22:47; Admin Dose 200 MLS/HR; Start 10/28/16 at 21:00 Hydromorphone HCl (Dilaudid) 2.5 mg Q3H PRN IV PAIN Last administered on 10:12; Admin Dose 2.5 MG; Start 10/28/16 at 18:30 Epinephrine (Racepinephrine 2.25% (Neb)) 0.5 ml ONCE ONCE HHN Last administered on 10/29/16 03:44; Admin Dose 0.5 ML; Start 10/29/16 at 03:30; Stop 10/29/16 at 03:31 Dexamethasone (Decadron) 4 mg Q6H IV Last administered on 10/29/16 10:12; Admin Dose 4 MG; Start 10/29/16 at 03:45 JARAD CHOI MD Oct 29, 2016 11:10
[2016-10-29] MEDS: MEROPENEM 500 MG/100 ML (PMX) 100 ML IVPB SCH (11:19)
--- NOTE | 2016-10-29 11:19 | PN ---
Date/Time of Note Date/Time of Note DATE: 10/29/16 TIME: 11:13 Assessment/Plan VTE Prophylaxis VTE Prophylaxis Intervention: SCD's Lines/Catheters IV Catheter Type (from Nrsg): PICC Line Urinary Cath still in place: Yes Assessment/Plan Assessment/Plan 1. Clostridium difficile colitis. Contact isolation. Patient is followed by Dr. Schuler group from infectious disease standpoint. Patient is currently on Questran, Dificid, Vanco and Flagyl. 2. Metastatic prostate cancer. Dr. Hernandez is following patient in oncology consultation. Continue chemotherapy and steroids. 3. Thrombocytopenia. Continue to monitor platelets. 4. Acute on chronic back pain. Dr. Ferguson is following the patient in pain management. Continue methadone and Dilaudid p.r.n. for breakthrough pain. 5. Anemia, this post blood transfusion, continue to monitor hemoglobin and hematocrit. 6. MRSA UTI, status post treatment 7. Protein calorie malnutrition, continue Megace, continue high-protein and high-calorie diet, continue tube feeding via NG tube. 8. Hyponatremia, continue IV fluids. 9. Stridor- CXR showed Slight steepling of the subglottic airway which can be seen in croup. - pulmonary consult appreciated- Dr Pineda - ENT consult appreciated- dawna Tinajero with MD. Further recommendations based on clinical course. Critical care time spent is 40 mins. Plan of care discussed with Dr. Nichols. Subjective 24 Hr Interval Summary Free Text/Dictation patient remains on face mask. sridor noted but CXR is WNL. DW staff Subjective hx not possible: other Eyes: no complaints Exam/Review of Systems Vital Signs Vitals Vital Signs Date Time Temp Pulse Resp B/P Pulse Ox O2 Delivery O2 Flow Rate FiO2 10/29/16 08:26 97 10/29/16 07:49 98.5 18 122/76 99 10/29/16 04:50 High Flow 10/29/16 04:50 10.0 10/29/16 04:50 60 Intake and Output 10/28/16 10/28/16 10/29/16 15:00 23:00 07:00 Intake Total 1100 ml Output Total 1200 ml Balance -100 ml Results PROCEDURE: XR Chest AP portable CLINICAL INDICATION: Stridor, check NG tube placement TECHNIQUE: An AP portable radiograph of the chest was submitted. COMPARISON: 10/26/2016 FINDINGS: Support Hardware: An NG tube is again satisfactorily positioned with the tip in the stomach. A left upper extremity PICC catheter is again evident with the tip appearing to have been advanced now projecting through the inferior right atrium. Cardiovascular: The cardiovascular silhouette appears unremarkable. Lung Montero: A suboptimal inspiration compresses lung parenchyma with the lungs otherwise clear. Pleural Spaces: No pneumothorax or pleural effusion is identified. Osseous Structures: The osseous elements appear rarefied with mild degenerative thoracic spine changes again noted. Soft Tissues: The subglottic airway appears steepled which can be seen in croup. IMPRESSION: 1. The NG tube remains satisfactorily positioned, while the left upper extremity PICC catheter tip has been advanced to the inferior right atrium. 2. Slight steepling of the subglottic airway which can be seen in croup. 3. Otherwise, stable and unremarkable portable chest. Result Diagram: 10/29/16 0640 10/28/16 0445 Results 24 hrs Laboratory Tests Test 10/28/16 20:27 10/29/16 03:30 10/29/16 06:40 Bedside Glucose 108 Arterial Blood HCO3 25.5 Arterial Blood Base Excess 1.7 Arterial Blood Oxygen Saturation 98.3 H Rico Test ACCEPTAB Arterial Blood Gas Puncture Site Right Radial Arterial Blood Carboxyhemoglobin 0.3 Arterial Blood Date Drawn 10/29/2016 3:38:39 AM Arterial Blood Methemoglobin 0.2 Arterial Blood pCO2 (Temp correct) 36.8 Arterial Blood pH (Temp corrected) 7.458 H Arterial Blood pO2 (Temp corrected) 147.5 H Blood Gas A-a O2 Differential 59.3 H Blood Gas Actual Respiration Rate 22 Blood Gas Modality COOL AEROSOL Blood Gas Notified Time 10/29/2016 3:46:07 AM Blood Gas Notified Whom MG Blood Gas Specimen Source Blood arterial Blood Gas Temperature 37.0 FiO2 35.0 Oxyhemoglobin Percent 97.8 Total Hemoglobin 9.8 L Basophils # 0.0 Basophils % 0.0 Blood Morphology Comment Eosinophils # 0.0 Eosinophils % 0.1 Hematocrit 23.3 L Hemoglobin 8.0 L Lymphocytes # 0.2 L Lymphocytes % 6.0 L Mean Corpuscular Hemoglobin 29.1 Mean Corpuscular Hemoglobin Concent 34.4 Mean Corpuscular Volume 84.4 Mean Platelet Volume 8.1 # Monocytes # 0.0 L Monocytes % 1.0 Neutrophils # 3.9 Neutrophils % 92.9 H Nucleated Red Blood Cells # 0.1 H Nucleated Red Blood Cells % 2.5 H Platelet Count 33 #L Red Blood Count 2.76 L Red Cell Distribution Width 15.9 H White Blood Count 4.2 L Medications Medications Current Medications Bicalutamide (Casodex) 50 mg QAM PO Last administered on 10/28/16 10:37; Admin Dose 50 MG; Start 09/07/16 at 09:00 Docusate Sodium (Colace) 100 mg BID PRN PO CONSTIPATION Last administered on 05:22; Admin Dose 100 MG; Start 09/07/16 at 00:00; Status Future Hold Escitalopram Oxalate (Lexapro) 5 mg DAILY PO Last administered on 10/28/16 09: 43; Admin Dose 5 MG; Start 09/07/16 at 09:00 Megestrol Acetate (Megace Susp) 400 mg BID PO Last administered on 10/28/16 22 :48; Admin Dose 400 MG; Start 09/07/16 at 09:00 Methylnaltrexone [place] (Relistor) 12 mg Q48H SC Last administered on 23:54; Admin Dose 12 MG; Start 09/07/16 at 00:00; Status Future Hold Ondansetron HCl (Zofran Tab) 4 mg Q6H PRN PO NAUSEA AND/OR VOMITING Last administered on 10/19/16 18:17; Admin Dose 4 MG; Start 09/07/16 at 00:00 Acetaminophen (Tylenol Tab) 500 mg Q4H PRN PO PAIN AND OR ELEVATED TEMP Last administered on 10/05/16 15:37; Admin Dose 500 MG; Start 09/07/16 at 21:30 IV Flush (NS 10 ml) 10 ml PRN PRN IV IV PROTOCOL; Start 09/11/16 at 10:00 Calcium/Vitamin D (Oyster Shell/ Vit-D (500/200)) 1 tab BID PO Last administered on 10/28/16 22:48; Admin Dose 1 TAB; Start 09/12/16 at 14:00 IV Flush 10 ml 10 ml PRN PRN IV IV PROTOCOL; Start 09/21/16 at 12:00 Ondansetron HCl/ Sodium Chloride (Zofran Inj/NS) 54 ml @ 216 mls/hr Q12H PRN IV NAUSEA AND/OR VOMITING; Start 09/29/16 at 22:00 Prednisone (Prednisone) 5 mg BID PO Last administered on 10/28/16 22:48; Admin Dose 5 MG; Start 09/29/16 at 21:00 Bisacodyl (Dulcolax Supp) 10 mg DAILY PRN [place] CONSTIPATION Last administered on 10/07/16 03:07; Admin Dose 10 MG; Start 10/07/16 at 03:00 Fidaxomicin (Dificid) 200 mg BID PO Last administered on 10/28/16 22:48; Admin Dose 200 MG; Start 10/17/16 at 10:30 Methadone HCl (Methadone Liq (Ped)) 3 mg Q6 PO Last administered on 10/28/16 23:40; Admin Dose 3 MG; Start 10/19/16 at 18:00 Cholestyramine Resin 4 gm 4 gm BID PO Last administered on 10/28/16 22:48; Admin Dose 4 GM; Start 10/22/16 at 21:00 Filgrastim/ Dextrose (Neupogen/D5W) 51 ml @ 102 mls/hr DAILY@17 IVPB Last administered on 10/28/16 18:46; Admin Dose 102 MLS/HR; Start 10/25/16 at 17:00 Vancomycin HCl (Vancomycin Oral Syringe) 250 mg Q6 PO Last administered on 10/29 00:00; Admin Dose 250 MG; Start 10/25/16 at 18:00 Metronidazole 500 mg 500 mg Q8 PO Last administered on 10/28/16 22:48; Admin Dose 500 MG; Start 10/25/16 at 14:00 Sodium Chloride (NS) 1,000 ml @ 40 mls/hr Q24H IV Last administered on 10:22; Admin Dose 40 MLS/HR; Start 10/25/16 at 14:30 Fluconazole 100 mg 100 mg DAILY PO Last administered on 10/28/16 09:00; Admin Dose 100 MG; Start 10/26/16 at 16:00 Meropenem (Merrem 500 Mg/ 100 ml (Pmx)) 100 ml @ 200 mls/hr Q12 IVPB Last administered on 10/28/16 22:47; Admin Dose 200 MLS/HR; Start 10/28/16 at 21:00 Hydromorphone HCl (Dilaudid) 2.5 mg Q3H PRN IV PAIN Last administered on 10:12; Admin Dose 2.5 MG; Start 10/28/16 at 18:30 Epinephrine (Racepinephrine 2.25% (Neb)) 0.5 ml ONCE ONCE HHN Last administered on 10/29/16 03:44; Admin Dose 0.5 ML; Start 10/29/16 at 03:30; Stop 10/29/16 at 03:31 Dexamethasone (Decadron) 4 mg Q6H IV Last administered on 10/29/16 10:12; Admin Dose 4 MG; Start 10/29/16 at 03:45 KENDAL BELLO Oct 29, 2016 11:19
[2016-10-29] MEDS ORDERED: POTASSIUM CHLORIDE 20 MEQ in SOD CHLORIDE 0.9% 100 ML IVPB ONE (16:00)
--- NOTE | 2016-10-29 16:28 | CONS ---
Date/Time of Note Date/Time of Note DATE: 10/29/16 TIME: 16:15 Assessment/Plan Assessment/Plan Chief Complaint/Hosp Course D PROGRESS NOTE TOTAL ABX DAY # Vanco IV, Merrem, Diflucan, CDIFF: Flagyl, Vanco PO, Questran, Deficid 24H INTERVAL SUMMARY * Frail 60 yo M on supplemental O2 via FM, moaning with exhalation, appears weak * MICROBIOLOGY: Urine culture yesterday grew Staphylococcus aureus. This morning culture reading gram-negative rods, more than 100,000 colonies. URINE CULTURE Final Organism 1 PROTEUS MIRABILIS COLONY COUNT >100,000 CFU/ml PHYSICAL EXAMINATION: GENERAL: 60 yo cachectic M, resting comfortably, NAD HEENT: Unremarkable NECK: Supple, trachea midline. CHEST: Equal chest rise bilaterally, without dyspnea on observation HEART: Pulse RRR ABDOMEN: Soft EXTREMITIES: Warm SKIN: See photos ID ASSESSMENT: 60 yo M w/{MHx Metastatic Prostate Cancer admit with: 1. POS CHEMO Tx + Steroids Rx per HemeOnc -> Prostate Cancer w/extensive sclerotic metastatic disease/aggressive periostitis of the pelvis 2. Pancytopenia per #1 3. Persistent C difficile colitis with diarrhea 4. s/p MRSA UTI-> 10/03/16 5. GNR UTI on 10/26/16 URINE CULTURE Final Organism 1 PROTEUS MIRABILIS COLONY COUNT >100,000 CFU/ml 6. Resolving SIRS due to recurrent UTI 7. Acute/chronic bone pain 2/2 #1 8. Cachexia/debility 2/2 #1 (-)MRSA Nares INVASIVES: PICC, White, NG tube. ABX ALLERGY: KNDA CURRENT ABX: TOTAL ABX DAY # Diflucan, CDIFF: Flagyl, Vanco PO, Questran, Deficid Vanco IV, Merrem=> DC today ID RECOMMENDATIONS: 1. DC Merrem and replace with GENT IV to cover GNR UTI -> GENT less likely to drive persistent C.Diff 2. Continue meds for C.Diff . . . Problems: Consultation Date/Type/Reason Admit Date/Time Sep 06, 2016 at 22:01 Initial Consult Date 09/08/16 Type of Consultation: id Referring Provider: TIMOTHY MARAVILLA MD Exam/Review of Systems Vital Signs Vitals Vital Signs Date Time Temp Pulse Resp B/P Pulse Ox O2 Delivery O2 Flow Rate FiO2 10/29/16 12:14 105 10/29/16 11:47 97.9 18 110/89 98 10/29/16 09:00 Simple Mask 10.0 10/29/16 04:50 60 Intake and Output 10/28/16 10/28/16 10/29/16 15:00 23:00 07:00 Intake Total 1100 ml Output Total 1200 ml Balance -100 ml Results Result Diagram: 10/29/16 0640 10/28/16 0445 Results 24 hrs Laboratory Tests Test 10/28/16 20:27 10/29/16 03:30 10/29/16 06:40 Bedside Glucose 108 Arterial Blood HCO3 25.5 Arterial Blood Base Excess 1.7 Arterial Blood Oxygen Saturation 98.3 H Rico Test ACCEPTAB Arterial Blood Gas Puncture Site Right Radial Arterial Blood Carboxyhemoglobin 0.3 Arterial Blood Date Drawn 10/29/2016 3:38:39 AM Arterial Blood Methemoglobin 0.2 Arterial Blood pCO2 (Temp correct) 36.8 Arterial Blood pH (Temp corrected) 7.458 H Arterial Blood pO2 (Temp corrected) 147.5 H Blood Gas A-a O2 Differential 59.3 H Blood Gas Actual Respiration Rate 22 Blood Gas Modality COOL AEROSOL Blood Gas Notified Time 10/29/2016 3:46:07 AM Blood Gas Notified Whom MG Blood Gas Specimen Source Blood arterial Blood Gas Temperature 37.0 FiO2 35.0 Oxyhemoglobin Percent 97.8 Total Hemoglobin 9.8 L Basophils # 0.0 Basophils % 0.0 Blood Morphology Comment Eosinophils # 0.0 Eosinophils % 0.1 Hematocrit 23.3 L Hemoglobin 8.0 L Lymphocytes # 0.2 L Lymphocytes % 6.0 L Mean Corpuscular Hemoglobin 29.1 Mean Corpuscular Hemoglobin Concent 34.4 Mean Corpuscular Volume 84.4 Mean Platelet Volume 8.1 # Monocytes # 0.0 L Monocytes % 1.0 Neutrophils # 3.9 Neutrophils % 92.9 H Nucleated Red Blood Cells # 0.1 H Nucleated Red Blood Cells % 2.5 H Platelet Count 33 #L Red Blood Count 2.76 L Red Cell Distribution Width 15.9 H White Blood Count 4.2 L Medications Medications Current Medications Bicalutamide (Casodex) 50 mg QAM PO Last administered on 10/28/16t 10:37; Admin Dose 50 MG; Start 09/07/16 at 09:00 Docusate Sodium (Colace) 100 mg BID PRN PO CONSTIPATION Last administered on 05:22; Admin Dose 100 MG; Start 09/07/16 at 00:00; Status Future Hold Escitalopram Oxalate (Lexapro) 5 mg DAILY PO Last administered on 10/28/16 09: 43; Admin Dose 5 MG; Start 09/07/16 at 09:00 Megestrol Acetate (Megace Susp) 400 mg BID PO Last administered on 10/28/16 22 :48; Admin Dose 400 MG; Start 09/07/16 at 09:00 Methylnaltrexone [place] (Relistor) 12 mg Q48H SC Last administered on 23:54; Admin Dose 12 MG; Start 09/07/16 at 00:00; Status Future Hold Ondansetron HCl (Zofran Tab) 4 mg Q6H PRN PO NAUSEA AND/OR VOMITING Last administered on 10/19/16 18:17; Admin Dose 4 MG; Start 09/07/16 at 00:00 Acetaminophen (Tylenol Tab) 500 mg Q4H PRN PO PAIN AND OR ELEVATED TEMP Last administered on 10/05/16 15:37; Admin Dose 500 MG; Start 09/07/16 at 21:30 IV Flush (NS 10 ml) 10 ml PRN PRN IV IV PROTOCOL; Start 09/11/16 at 10:00 Calcium/Vitamin D (Oyster Shell/ Vit-D (500/200)) 1 tab BID PO Last administered on 10/28/16 22:48; Admin Dose 1 TAB; Start 09/12/16 at 14:00 IV Flush 10 ml 10 ml PRN PRN IV IV PROTOCOL; Start 09/21/16 at 12:00 Ondansetron HCl/ Sodium Chloride (Zofran Inj/NS) 54 ml @ 216 mls/hr Q12H PRN IV NAUSEA AND/OR VOMITING; Start 09/29/16 at 22:00 Prednisone (Prednisone) 5 mg BID PO Last administered on 10/28/16 22:48; Admin Dose 5 MG; Start 09/29/16 at 21:00 Bisacodyl (Dulcolax Supp) 10 mg DAILY PRN IN CONSTIPATION Last administered on 10/07/16 03:07; Admin Dose 10 MG; Start 10/07/16 at 03:00 Fidaxomicin (Dificid) 200 mg BID PO Last administered on 10/28/16 22:48; Admin Dose 200 MG; Start 10/17/16 at 10:30 Methadone HCl (Methadone Liq (Ped)) 3 mg Q6 PO Last administered on 10/28/16 23:40; Admin Dose 3 MG; Start 10/19/16 at 18:00 Cholestyramine Resin 4 gm 4 gm BID PO Last administered on 10/28/16 22:48; Admin Dose 4 GM; Start 10/22/16 at 21:00 Filgrastim/ Dextrose (Neupogen/D5W) 51 ml @ 102 mls/hr DAILY@17 IVPB Last administered on 10/28/16 18:46; Admin Dose 102 MLS/HR; Start 10/25/16 at 17:00 Vancomycin HCl (Vancomycin Oral Syringe) 250 mg Q6 PO Last administered on 10/29 00:00; Admin Dose 250 MG; Start 10/25/16 at 18:00 Metronidazole 500 mg 500 mg Q8 PO Last administered on 10/28/16 22:48; Admin Dose 500 MG; Start 10/25/16 at 14:00 Sodium Chloride (NS) 1,000 ml @ 40 mls/hr Q24H IV Last administered on 10:22; Admin Dose 40 MLS/HR; Start 10/25/16 at 14:30 Fluconazole 100 mg 100 mg DAILY PO Last administered on 10/28/16 09:00; Admin Dose 100 MG; Start 10/26/16 at 16:00 Meropenem (Merrem 500 Mg/ 100 ml (Pmx)) 100 ml @ 200 mls/hr Q12 IVPB Last administered on 10/29/16 11:19; Admin Dose 200 MLS/HR; Start 10/28/16 at 21:00 Hydromorphone HCl (Dilaudid) 2.5 mg Q3H PRN IV PAIN Last administered on 10:12; Admin Dose 2.5 MG; Start 10/28/16 at 18:30 Epinephrine (Racepinephrine 2.25% (Neb)) 0.5 ml ONCE ONCE HHN Last administered on 10/29/16 03:44; Admin Dose 0.5 ML; Start 10/29/16 at 03:30; Stop 10/29/16 at 03:31 Dexamethasone 4 mg 4 mg Q6H IV Last administered on 10/29/16 15:17; Admin Dose 4 MG; Start 10/29/16 at 03:45 Potassium Chloride/Sodium Chloride (KCl/NS) 110 ml @ 55 mls/hr ONCE ONCE IVPB Last administered on 10/29/16 15:17; Admin Dose 55 MLS/HR; Start 10/29/16 at 16:00; Stop 10/29/16 at 17:59 [employer] Oct 29, 2016 16:25
[2016-10-29] MEDS ORDERED: GENTAMICIN IV PER PHARMACY XX SCH (16:30)
[2016-10-29] MEDS: FILGRASTIM 300 MCG in DEXTROSE 5% 50 ML IVPB SCH (17:29)
[2016-10-29] MEDS: DEXTROSE 5%-0.45% NACL 1,000 ML IV SCH (18:22)
[2016-10-29] MEDS ORDERED: GENTAMICIN 300 MG in SOD CHLORIDE 0.9% 100 ML IVPB SCH (19:00)
[2016-10-29] MEDS ORDERED: GENTAMICIN 80 MG/NS (PMX) 50 ML IVPB SCH (20:00)
--- NOTE | 2016-10-29 20:59 | CONS ---
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 Problems: Additional Assessment/Plan The patient's airway is compromised, but he is currently stable. He is currently not hypoxic on room air. Recommend frequent suctioning of his hypopharynx to prevent mucous plugging. I discussed the patient's findings with Dr. Nichols. We discussed that the patient will likely need a tracheostomy. He, and/or his team, will discuss this with the family. If the patient's condition worsens, he will need to be intubated. Consultation Date/Type/Reason Admit Date/Time Sep 06, 2016 at 22:01 Date of Consultation: Oct 29, 2016 Type of Consultation: Ear, nose, and throat Reason for Consultation Stridor Referring Provider: TIMOTHY NICHOLS MD Hx of Present Illness The patient is a 60-year-old male with metastatic prostate cancer. The patient is currently being managed for several infections. ENT was consulted today for a 1 day history of acute onset stridor. The patient was found to be dyspneic and was having some episodes of hypoxia requiring supplemental oxygen. The patient does not give any history. His nurse states that his oxygen saturation is in the mid 90s on room air. He is currently n.p.o. Subjective hx not possible: other (The patient does not answer any questions other than answering his name and knowing what hospital he is in.) Constitutional: improved, no complaints Eyes: no complaints ENT: no complaints Respiratory: no complaints Cardiovascular: no complaints Gastrointestinal: no complaints Genitourinary: no complaints Musculoskeletal: no complaints Skin: no complaints Neurologic: no complaints Endocrine: no complaints Lymphatic: no complaints Psychological: nl mood/affect, no complaints Immunologic: no complaints Past Medical History Medical History: deep vein thrombosis, urinary tract infection, other ( metastatic prostate cancer, anemia) Past Surgical History Past Surgical Hx: no surgical history Social History Alcohol Use: none Smoking Status: Former smoker Drug Use: none Exam/Review of Systems Vital Signs Vitals Vital Signs Date Time Temp Pulse Resp B/P Pulse Ox O2 Delivery O2 Flow Rate FiO2 10/29/16 20:25 98.5 103 15 115/78 97 10/29/16 20:10 Simple Mask 10.0 10/29/16 04:50 60 Intake and Output 10/28/16 10/28/16 10/29/16 15:00 23:00 07:00 Intake Total 1100 ml Output Total 1200 ml Balance -100 ml Exam Constitutional: alert, oriented Psych: other (Lethargic) Head: atraumatic, normocephalic Eyes: EOMI, nl conjunctiva, nl lids ENMT: mucosa pink and moist, nl external ears & nose, nl lips & teeth, nl nasal mucosa & septum Neck: non-tender, supple Respiratory: other (Inspiratory stridor) Cardiovascular: regular rate and rhythm Results Result Diagram: 10/29/16 0640 10/28/16 0445 Results 24 hrs Laboratory Tests Test 10/29/16 03:30 10/29/16 06:40 Arterial Blood HCO3 25.5 Arterial Blood Base Excess 1.7 Arterial Blood Oxygen Saturation 98.3 H Rico Test ACCEPTAB Arterial Blood Gas Puncture Site Right Radial Arterial Blood Carboxyhemoglobin 0.3 Arterial Blood Date Drawn 10/29/2016 3:38:39 AM Arterial Blood Methemoglobin 0.2 Arterial Blood pCO2 (Temp correct) 36.8 Arterial Blood pH (Temp corrected) 7.458 H Arterial Blood pO2 (Temp corrected) 147.5 H Blood Gas A-a O2 Differential 59.3 H Blood Gas Actual Respiration Rate 22 Blood Gas Modality COOL AEROSOL Blood Gas Notified Time 10/29/2016 3:46:07 AM Blood Gas Notified Whom MG Blood Gas Specimen Source Blood arterial Blood Gas Temperature 37.0 FiO2 35.0 Oxyhemoglobin Percent 97.8 Total Hemoglobin 9.8 L Basophils # 0.0 Basophils % 0.0 Blood Morphology Comment Eosinophils # 0.0 Eosinophils % 0.1 Hematocrit 23.3 L Hemoglobin 8.0 L Lymphocytes # 0.2 L Lymphocytes % 6.0 L Mean Corpuscular Hemoglobin 29.1 Mean Corpuscular Hemoglobin Concent 34.4 Mean Corpuscular Volume 84.4 Mean Platelet Volume 8.1 # Monocytes # 0.0 L Monocytes % 1.0 Neutrophils # 3.9 Neutrophils % 92.9 H Nucleated Red Blood Cells # 0.1 H Nucleated Red Blood Cells % 2.5 H Platelet Count 33 #L Red Blood Count 2.76 L Red Cell Distribution Width 15.9 H White Blood Count 4.2 L Medications Medications Current Medications Bicalutamide (Casodex) 50 mg QAM PO Last administered on 10/28/16 10:37; Admin Dose 50 MG; Start 09/07/16 at 09:00 Docusate Sodium (Colace) 100 mg BID PRN PO CONSTIPATION Last administered on 05:22; Admin Dose 100 MG; Start 09/07/16 at 00:00; Status Future Hold Escitalopram Oxalate (Lexapro) 5 mg DAILY PO Last administered on 10/28/16 09: 43; Admin Dose 5 MG; Start 09/07/16 at 09:00 Megestrol Acetate (Megace Susp) 400 mg BID PO Last administered on 10/28/16 22 :48; Admin Dose 400 MG; Start 09/07/16 at 09:00 Methylnaltrexone [place] (Relistor) 12 mg Q48H SC Last administered on 23:54; Admin Dose 12 MG; Start 09/07/16 at 00:00; Status Future Hold Ondansetron HCl (Zofran Tab) 4 mg Q6H PRN PO NAUSEA AND/OR VOMITING Last administered on 10/19/16 18:17; Admin Dose 4 MG; Start 09/07/16 at 00:00 Acetaminophen (Tylenol Tab) 500 mg Q4H PRN PO PAIN AND OR ELEVATED TEMP Last administered on 10/05/16 15:37; Admin Dose 500 MG; Start 09/07/16 at 21:30 IV Flush (NS 10 ml) 10 ml PRN PRN IV IV PROTOCOL; Start 09/11/16 at 10:00 Calcium/Vitamin D (Oyster Shell/ Vit-D (500/200)) 1 tab BID PO Last administered on 10/28/16 22:48; Admin Dose 1 TAB; Start 09/12/16 at 14:00 IV Flush 10 ml 10 ml PRN PRN IV IV PROTOCOL; Start 09/21/16 at 12:00 Ondansetron HCl/ Sodium Chloride (Zofran Inj/NS) 54 ml @ 216 mls/hr Q12H PRN IV NAUSEA AND/OR VOMITING; Start 09/29/16 at 22:00 Prednisone (Prednisone) 5 mg BID PO Last administered on 10/28/16 22:48; Admin Dose 5 MG; Start 09/29/16 at 21:00 Bisacodyl (Dulcolax Supp) 10 mg DAILY PRN [place] CONSTIPATION Last administered on 10/07/16 03:07; Admin Dose 10 MG; Start 10/07/16 at 03:00 Fidaxomicin (Dificid) 200 mg BID PO Last administered on 10/28/16 22:48; Admin Dose 200 MG; Start 10/17/16 at 10:30 Methadone HCl (Methadone Liq (Ped)) 3 mg Q6 PO Last administered on 10/28/16 23:40; Admin Dose 3 MG; Start 10/19/16 at 18:00 Cholestyramine Resin 4 gm 4 gm BID PO Last administered on 10/28/16 22:48; Admin Dose 4 GM; Start 10/22/16 at 21:00 Filgrastim/ Dextrose (Neupogen/D5W) 51 ml @ 102 mls/hr DAILY@17 IVPB Last administered on 10/29/16 17:29; Admin Dose 102 MLS/HR; Start 10/25/16 at 17:00 Vancomycin HCl (Vancomycin Oral Syringe) 250 mg Q6 PO Last administered on 10/29 00:00; Admin Dose 250 MG; Start 10/25/16 at 18:00 Metronidazole (Flagyl) 500 mg Q8 PO Last administered on 10/28/16 22:48; Admin Dose 500 MG; Start 10/25/16 at 14:00 Fluconazole (Diflucan) 100 mg DAILY PO Last administered on 10/28/16 09:00; Admin Dose 100 MG; Start 10/26/16 at 16:00 Hydromorphone HCl (Dilaudid) 2.5 mg Q3H PRN IV PAIN Last administered on 17:31; Admin Dose 2.5 MG; Start 10/28/16 at 18:30 Epinephrine (Racepinephrine 2.25% (Neb)) 0.5 ml ONCE ONCE HHN Last administered on 10/29/16 03:44; Admin Dose 0.5 ML; Start 10/29/16 at 03:30; Stop 10/29/16 at 03:31 Dexamethasone 4 mg 4 mg Q6H IV Last administered on 10/29/16 15:17; Admin Dose 4 MG; Start 10/29/16 at 03:45 Potassium Chloride/Sodium Chloride (KCl/NS) 110 ml @ 55 mls/hr ONCE ONCE IVPB Last administered on 10/29/16t 15:17; Admin Dose 55 MLS/HR; Start 10/29/16 at 16:00; Stop 10/29/16 at 17:59 Gentamicin Sulfate GENTAMICIN PER PHARM... NOTE XX ; Start 10/29/16 at 16:30; Stop 11/03/16 at 16:29 Gentamicin Sulfate/Sodium Chloride (Gentamicin/NS) 107.5 ml @ 103.75 mls/ hr Q24H IVPB ; Start 10/29/16 at 19:00; Stop 11/03/16 at 18:59 Miscellaneous Information GENTAMICIN RANDOM LEVEL 2... ONCE ONCE XX ; Start 09/03 at 05:00; Stop 10/30/16 at 05:01 Dextrose/Sodium Chloride (D5-1/2ns) 1,000 ml @ 75 mls/hr [id number] IV Last administered on 10/29/16t 18:22; Admin Dose 75 MLS/HR; Start 10/29/16 at 18:30 Procedures Procedures The flexible laryngoscope was advanced into the right nasal cavity after topical lidocaine was sprayed. The nasal cavity, nasopharynx, oropharynx were all normal. There was abundant thick mucopurulence in the hypopharynx. This was suctioned. The patient's epiglottis is moderately retroflexed and slightly underdeveloped. Both vocal cords are found to be in the paramedian position at rest. Due to the position of the epiglottis and the patient's noncompliance with the examination, it was difficult to fully assess the movement of the vocal cords. However, it appeared that the right vocal cord was paralyzed in the left vocal cord was paretic. The subglottic region could not be visualized. JAELYN GILBERT MD Oct 29, 2016 20:58
[2016-10-30] VITALS (12 sets, daily range): BP systolic 116–132; BP diastolic 57–88; PULSE 86–110; RESP 15–76
[2016-10-30] MEDS: RACEPINEPHRINE 2.25%(NEB) 0.5 ML AMP HHN PRN (01:46)
[2016-10-30] MEDS: HYDROmorphONE 2 MG/ML SYG IV PRN ×3 (01:48→20:23)
[2016-10-30] MEDS: DEXAMETHASONE 4 MG/ML 1 ML INJ IV SCH ×4 (04:00→21:37)
--- NOTE | 2016-10-30 04:42 | CONS ---
DATE OF ADMISSION: 09/06/2016 DATE OF CONSULTATION: TYPE OF CONSULTATION: Pulmonary. HISTORY OF PRESENT ILLNESS: Briefly, this is a 60-year-old gentleman with widely metastatic prostat e cancer with diffuse osteoblastic sclerotic metastases previously treated for cord compression who has also had likely failure or prior hormonal therapy who was admitted late August of last year to [facility] for what appears to be just weakness, dehydration, and failure t o thrive. He has had a prolonged hospitalization since then and has undergone chemotherapy with Tax otere and whose course has been complicated by recurrent UTIs and C. diff and progressive debilitati on and deconditioning and cachexia who earlier this morning was noted to be stridorous with increase d oxygen requirements, prompting transfer to telemetry. He did receive doses of Decadron, nebulized treatments, and has since improved and is now back on room air. PAST MEDICAL HISTORY: As noted above in history of present illness. MEDICATIONS: Please see MAR. ALLERGIES: NO KNOWN ALLERGIES. SOCIAL HISTORY: No tobacco, alcohol, or illicit drug use. FAMILY HISTORY: Noncontributory. REVIEW OF SYSTEMS: The patient is Turkish speaking, is somnolent, and is not able to respond to que stions. PHYSICAL EXAMINATION: VITAL SIGNS: Heart rate is 110, blood pressure 122/85, oxygen saturation is 94% on room air. GENERAL: A very cachectic man, appearing older than his age, in no acute distress. HEENT: Normocephalic, atraumatic. NECK: Supple. There is fine inspiratory stridor heard on auscultation of the neck. CARDIOVASCULAR: Tachycardic, S1, S2. No murmurs, rubs, or gallops. CHEST: There is some transmission of the stridor heard at the left greater than the right lung fiel d. ABDOMEN: Soft, nontender. EXTREMITIES: No cyanosis, clubbing, or edema. LABORATORY DATA: WBC is 4.2, hemoglobin is 8.0, platelets are 33. ABG: pH is 7.46, pCO2 of 37, pO 2 of 146. Chest x-ray shows an NG tube is in place, possibly slight narrowing of the subglottic air way, otherwise unremarkable. IMPRESSION: Stridor in an extremely frail gentleman with advanced metastatic prostatic cancer statu s post chemotherapy. The etiology is unclear, although viral etiology such as croup is possible. T his could also be due to possible reaction to one of his chemotherapeutic medications versus chronic aspiration and irritation and inflammation of his vocal cords and subglottic airway. RECOMMENDATIONS: 1. Continue Decadron for now IV. 2. Breathing treatments as needed. 3. We would, at this point, avoid fiberoptic evaluation of his airway given his frail and fragile s rangel. 4. Most importantly, this patient needs further discussions about goals of care as his prognosis is extremely poor. I thereby recommend palliative consultation and followup. Dictated By: NELSON PRADO MD NK/NTS Conf#: [id number] DID#: [id number] CC: AARON STROUD MD;*End*
[2016-10-30] MEDS: metroNIDAZOLE 500 MG TAB PO SCH ×3 (04:46→21:50)
[2016-10-30] MEDS: METHADONE (1 MG/1 ML PO SYG) PO SCH ×5 (04:46→23:37)
[2016-10-30] MEDS: VANCOMYCIN HCL 250 MG/5ML POSYG PO SCH ×5 (04:46→23:36)
[2016-10-30 07:36] LABS: POTASSIUM 4.8 mmol/L (3.5-5.1)
[2016-10-30 07:39] LABS: CALCIUM 7.1 mg/dl (8.4-10.2); CREATININE 0.25 mg/dl (0.61-1.24)
[2016-10-30 07:48] LABS: HEMATOCRIT 25.5 % (42.0-52.0); HEMOGLOBIN 8.8 g/dl (14.0-18.0); MEAN CORPUSCULAR HEMOGLOBIN 29.4 pg (29.0-33.0); MEAN CORPUSCULAR HGB CONC 34.6 g/dl (32.0-37.0); MEAN CORPUSCULAR VOLUME 84.8 fl (82.0-101.0); MEAN PLATELET VOLUME 9.5 fl (7.4-10.4); RED BLOOD COUNT 3.01 10^6/ul (4.70-6.10); RED CELL DISTRIBUTION WIDTH 16.2 % (11.5-14.5); UNCORRECTED WBC 4.9 10^3/ul (4.8-10.8); WHITE BLOOD COUNT 4.9 10^3/ul (4.8-10.8)
[2016-10-30 08:05] LABS: CONDITION 1; LH ANALYZER COMMENTS 1; SUSPECT 1
[2016-10-30 08:07] LABS: PLATELET COUNT 28 10^3/UL (140-440)
[2016-10-30] MEDS: MEGESTROL (40 MG/ML) 10ML CUP PO SCH ×2 (09:03→20:26)
[2016-10-30] MEDS: CHOLESTYRAMINE (LIGHT) 4 GM PACKET PO SCH ×2 (09:03→20:26)
[2016-10-30] MEDS: DEXTROSE 5%-0.45% NACL 1,000 ML IV SCH ×2 (09:03→21:34)
[2016-10-30] MEDS: predniSONE 5 MG TAB PO SCH ×2 (09:03→20:26)
[2016-10-30] MEDS: ESCITALOPRAM 10 MG TAB PO SCH (09:04)
[2016-10-30] MEDS: FIDAXOMICIN 200 MG TABLET PO SCH ×2 (09:04→20:26)
[2016-10-30] MEDS: CALCIUM/VITAMIN D (500/200) TAB PO SCH ×2 (09:04→20:26)
[2016-10-30] MEDS: FLUCONAZOLE 100 MG TAB PO SCH (09:04)
[2016-10-30] MEDS: BICALUTAMIDE 50 MG TAB PO SCH (09:50)
[2016-10-30 10:04] LABS: ANISOCYTOSIS 1+; LYMPHOCYTES # 0.3 10^3/ul (0.8-2.9); MONOCYTE # 0.3 10^3/ul (0.3-0.9); MYELOCYTES # 0.2; NEUTROPHIL # 2.1 10^3/ul (1.6-7.5); PLATELET ESTIMATE PLT APPEAR DECREASED
--- NOTE | 2016-10-30 12:33 | CONS ---
Date/Time of Note Date/Time of Note DATE: 10/30/16 TIME: 12:28 Assessment/Plan Assessment/Plan Chief Complaint/Hosp Course D PROGRESS NOTE TOTAL ABX DAY # Vanco IV, Merrem, Diflucan, CDIFF: Flagyl, Vanco PO, Questran, Deficid 24H INTERVAL SUMMARY * Frail 60 yo M on supplemental O2 via FM, stridor on exhalation vs intentional moaning ? 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 => Likely neoplastic etiology * MICROBIOLOGY: Urine culture yesterday grew Staphylococcus aureus. This morning culture reading gram-negative rods, more than 100,000 colonies. URINE CULTURE Final Organism 1 PROTEUS MIRABILIS COLONY COUNT >100,000 CFU/ml PHYSICAL EXAMINATION: GENERAL: 60 yo cachectic M, resting comfortably, NAD HEENT: Unremarkable NECK: Supple, trachea midline. CHEST: Equal chest rise bilaterally, without dyspnea on observation HEART: Pulse RRR ABDOMEN: Soft EXTREMITIES: Warm SKIN: See photos ID ASSESSMENT: 60 yo M w/{MHx Metastatic Prostate Cancer admit with: 1. POS CHEMO Tx + Steroids Rx per HemeOnc -> Prostate Cancer w/extensive sclerotic metastatic disease/aggressive periostitis of the pelvis 2. Pancytopenia per #1 3. 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 => Likely paraneoplastic process * May need oral intubation future for continued hypoxic respiratory compromise 4. Persistent C difficile colitis with diarrhea 5. Resolving SIRS due to recurrent UTI + C.Diff 6. GNR UTI on 10/26/16 URINE CULTURE Final Organism 1 PROTEUS MIRABILIS COLONY COUNT >100,000 CFU/ml * s/p MRSA UTI-> 10/03/16 7. Acute/chronic bone pain 2/2 #1 8. Cachexia/debility 2/2 #1 (-)MRSA Nares INVASIVES: PICC, White, NG tube. ABX ALLERGY: KNDA CURRENT ABX: TOTAL ABX DAY # Diflucan, CDIFF: Flagyl, Vanco PO, Questran, Deficid Vanco IV, Merrem=> DC today ID RECOMMENDATIONS: 1. DC Merrem and replace with GENT IV to cover GNR UTI -> GENT less likely to drive persistent C.Diff 2. Continue meds for C.Diff 3. 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 => Likely neoplastic etiology * Concern for upper airway compromise, may need future oral intubation . . . Problems: Consultation Date/Type/Reason Admit Date/Time Sep 06, 2016 at 22:01 Initial Consult Date 09/08/16 Type of Consultation: ID Referring Provider: TIMOTHY MARAVILLA MD Exam/Review of Systems Vital Signs Vitals Vital Signs Date Time Temp Pulse Resp B/P Pulse Ox O2 Delivery O2 Flow Rate FiO2 10/30/16 12:23 95 10/30/16 11:40 98.6 18 130/82 95 10/30/16 08:30 10.0 60 10/30/16 08:30 Aerosol Simple Mask Intake and Output 10/29/16 10/29/16 10/30/16 15:00 23:00 07:00 Intake Total 100 ml 461 ml 900 ml Output Total 2100 ml 850 ml Balance 100 ml -1639 ml 50 ml Results Result Diagram: 10/30/16 0600 10/30/16 0600 Results 24 hrs Laboratory Tests Test 10/30/16 06:00 Anion Gap 10 Anisocytosis 1+ Band Neutrophils % 32.0 H Basophils # Basophils % Blood Morphology Comment Blood Urea Nitrogen 8 Calcium Level 7.1 L Carbon Dioxide Level 27 Chloride Level 101 Creatinine 0.25 L Differential Comment MANUAL DIFF Dimorphic Red Blood Cells OCCASIONAL Eosinophils # Eosinophils % Glucose Level 130 Hematocrit 25.5 L Hemoglobin 8.8 L Lymphocytes # 0.3 L Lymphocytes % 7.0 L Mean Corpuscular Hemoglobin 29.4 Mean Corpuscular Hemoglobin Concent 34.6 Mean Corpuscular Volume 84.8 Mean Platelet Volume 9.5 Metamyelocytes # 0.3 Metamyelocytes % 7.0 H Monocytes # 0.3 Monocytes % 7.0 Myelocytes # 0.2 Myelocytes % 4.0 H Neutrophils # 2.1 Neutrophils % 43.0 Nucleated Red Blood Cells # Nucleated Red Blood Cells % Platelet Count 28 *L Platelet Estimate PLT APPEAR DECREASED Potassium Level 4.8 Random Gentamicin Level 2.4 Red Blood Count 3.01 L Red Cell Distribution Width 16.2 H Sodium Level 133 L White Blood Count 4.9 Medications Medications Current Medications Bicalutamide (Casodex) 50 mg QAM PO Last administered on 10/30/16t 09:50; Admin Dose 50 MG; Start 09/07/16 at 09:00 Docusate Sodium (Colace) 100 mg BID PRN PO CONSTIPATION Last administered on 05:22; Admin Dose 100 MG; Start 09/07/16 at 00:00; Status Future Hold Escitalopram Oxalate (Lexapro) 5 mg DAILY PO Last administered on 10/30/16 09: 04; Admin Dose 5 MG; Start 09/07/16 at 09:00 Megestrol Acetate (Megace Susp) 400 mg BID PO Last administered on 10/30/16 09 :03; Admin Dose 400 MG; Start 09/07/16 at 09:00 Methylnaltrexone [place] (Relistor) 12 mg Q48H SC Last administered on 23:54; Admin Dose 12 MG; Start 09/07/16 at 00:00; Status Future Hold Ondansetron HCl (Zofran Tab) 4 mg Q6H PRN PO NAUSEA AND/OR VOMITING Last administered on 10/19/16 18:17; Admin Dose 4 MG; Start 09/07/16 at 00:00 Acetaminophen (Tylenol Tab) 500 mg Q4H PRN PO PAIN AND OR ELEVATED TEMP Last administered on 10/05/16 15:37; Admin Dose 500 MG; Start 09/07/16 at 21:30 IV Flush (NS 10 ml) 10 ml PRN PRN IV IV PROTOCOL; Start 09/11/16 at 10:00 Calcium/Vitamin D (Oyster Shell/ Vit-D (500/200)) 1 tab BID PO Last administered on 10/30/16 09:04; Admin Dose 1 TAB; Start 09/12/16 at 14:00 IV Flush 10 ml 10 ml PRN PRN IV IV PROTOCOL; Start 09/21/16 at 12:00 Ondansetron HCl/ Sodium Chloride (Zofran Inj/NS) 54 ml @ 216 mls/hr Q12H PRN IV NAUSEA AND/OR VOMITING; Start 09/29/16 at 22:00 Prednisone (Prednisone) 5 mg BID PO Last administered on 10/30/16 09:03; Admin Dose 5 MG; Start 09/29/16 at 21:00 Bisacodyl (Dulcolax Supp) 10 mg DAILY PRN [place] CONSTIPATION Last administered on 10/07/16 03:07; Admin Dose 10 MG; Start 10/07/16 at 03:00 Fidaxomicin (Dificid) 200 mg BID PO Last administered on 10/30/16 09:04; Admin Dose 200 MG; Start 10/17/16 at 10:30 Methadone HCl (Methadone Liq (Ped)) 3 mg Q6 PO Last administered on 10/28/16 23:40; Admin Dose 3 MG; Start 10/19/16 at 18:00 Cholestyramine Resin 4 gm 4 gm BID PO Last administered on 10/30/16 09:03; Admin Dose 4 GM; Start 10/22/16 at 21:00 Filgrastim/ Dextrose (Neupogen/D5W) 51 ml @ 102 mls/hr DAILY@17 IVPB Last administered on 10/29/16 17:29; Admin Dose 102 MLS/HR; Start 10/25/16 at 17:00 Vancomycin HCl (Vancomycin Oral Syringe) 250 mg Q6 PO Last administered on 10/29 00:00; Admin Dose 250 MG; Start 10/25/16 at 18:00 Metronidazole (Flagyl) 500 mg Q8 PO Last administered on 10/28/16 22:48; Admin Dose 500 MG; Start 10/25/16 at 14:00 Fluconazole (Diflucan) 100 mg DAILY PO Last administered on 10/30/16 09:04; Admin Dose 100 MG; Start 10/26/16 at 16:00 Hydromorphone HCl (Dilaudid) 2.5 mg Q3H PRN IV PAIN Last administered on 11:07; Admin Dose 2.5 MG; Start 10/28/16 at 18:30 Epinephrine (Racepinephrine 2.25% (Neb)) 0.5 ml ONCE ONCE HHN Last administered on 10/29/16 03:44; Admin Dose 0.5 ML; Start 10/29/16 at 03:30; Stop 10/29/16 at 03:31 Dexamethasone 4 mg 4 mg Q6H IV Last administered on 10/30/16 11:07; Admin Dose 4 MG; Start 10/29/16 at 03:45 Potassium Chloride/Sodium Chloride (KCl/NS) 110 ml @ 55 mls/hr ONCE ONCE IVPB Last administered on 2/11/17at 15:17; Admin Dose 55 MLS/HR; Start 10/29/16 at 16:00; Stop 10/29/16 at 17:59 Gentamicin Sulfate GENTAMICIN PER PHARM... NOTE XX ; Start 10/29/16 at 16:30; Stop 11/03/16 at 16:29 Dextrose/Sodium Chloride 1,000 ml @ 75 mls/hr [id number] IV Last administered on 10/30/16 09:03; Admin Dose 75 MLS/HR; Start 10/29/16 at 18:30 Gentamicin Sulfate/Sodium Chloride (Gentamicin/NS) 107.5 ml @ 103.75 mls/ hr Q24H IVPB ; Start 10/30/16 at 22:00; Stop 11/03/16 at 21:59 BRITTNEY [employer] Oct 30, 2016 12:32
--- NOTE | 2016-10-30 13:18 | PN ---
Date/Time of Note Date/Time of Note DATE: 10/30/16 TIME: 13:16 Assessment/Plan VTE Prophylaxis VTE Prophylaxis Intervention: SCD's Lines/Catheters IV Catheter Type (from Nrsg): PICC Line Urinary Cath still in place: Yes Assessment/Plan Assessment/Plan 1. Clostridium difficile colitis. Contact isolation. Patient is followed by Dr. Schuler group from infectious disease standpoint. Patient is currently on Questran, Dificid, Vanco and Flagyl. 2. Metastatic prostate cancer. Dr. Hernanedz is following patient in oncology consultation. Continue chemotherapy and steroids. 3. Thrombocytopenia. Continue to monitor platelets. 4. Acute on chronic back pain. Dr. Ferguson is following the patient in pain management. Continue methadone and Dilaudid p.r.n. for breakthrough pain. 5. Anemia, this post blood transfusion, continue to monitor hemoglobin and hematocrit. 6. MRSA UTI, status post treatment 7. Protein calorie malnutrition, continue Megace, continue high-protein and high-calorie diet, continue tube feeding via NG tube. 8. Hyponatremia, continue IV fluids. 9. Stridor- CXR showed Slight steepling of the subglottic airway which can be seen in croup. - pulmonary consult appreciated- Dr Pineda - per ENT consult - Dr Osman recommended for tach placement. Further recommendations based on clinical course. Plan of care discussed with Dr. Nichols. Subjective 24 Hr Interval Summary Constitutional: requiring IVF, requiring O2 Respiratory: no complaints Cardiovascular: no complaints Gastrointestinal: no complaints Musculoskeletal: no complaints Skin: no complaints Neurologic: no complaints Exam/Review of Systems Vital Signs Vitals Vital Signs Date Time Temp Pulse Resp B/P Pulse Ox O2 Delivery O2 Flow Rate FiO2 10/30/16 12:23 95 10/30/16 11:40 98.6 18 130/82 95 10/30/16 08:30 10.0 60 10/30/16 08:30 Aerosol Simple Mask Intake and Output 10/29/16 10/29/16 10/30/16 15:00 23:00 07:00 Intake Total 100 ml 461 ml 900 ml Output Total 2100 ml 850 ml Balance 100 ml -1639 ml 50 ml Exam Constitutional: alert, well developed Psych: no complaints Head: atraumatic Eyes: EOMI, nl sclera ENMT: nl external ears & nose Neck: non-tender Respiratory: diminished breath sounds Cardiovascular: nl pulses Gastrointestinal: non-tender, soft Musculoskeletal: nl extremities to inspection Extremities: normal pulses 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: other Lymph: nontender Results Result Diagram: 10/30/1659910/30/16 0600 Results 24 hrs Laboratory Tests Test 10/30/16 06:00 Anion Gap 10 Anisocytosis 1+ Band Neutrophils % 32.0 H Basophils # Basophils % Blood Morphology Comment Blood Urea Nitrogen 8 Calcium Level 7.1 L Carbon Dioxide Level 27 Chloride Level 101 Creatinine 0.25 L Differential Comment MANUAL DIFF Dimorphic Red Blood Cells OCCASIONAL Eosinophils # Eosinophils % Glucose Level 130 Hematocrit 25.5 L Hemoglobin 8.8 L Lymphocytes # 0.3 L Lymphocytes % 7.0 L Mean Corpuscular Hemoglobin 29.4 Mean Corpuscular Hemoglobin Concent 34.6 Mean Corpuscular Volume 84.8 Mean Platelet Volume 9.5 Metamyelocytes # 0.3 Metamyelocytes % 7.0 H Monocytes # 0.3 Monocytes % 7.0 Myelocytes # 0.2 Myelocytes % 4.0 H Neutrophils # 2.1 Neutrophils % 43.0 Nucleated Red Blood Cells # Nucleated Red Blood Cells % Platelet Count 28 *L Platelet Estimate PLT APPEAR DECREASED Potassium Level 4.8 Random Gentamicin Level 2.4 Red Blood Count 3.01 L Red Cell Distribution Width 16.2 H Sodium Level 133 L White Blood Count 4.9 Medications Medications Current Medications Bicalutamide (Casodex) 50 mg QAM PO Last administered on 10/30/16 09:50; Admin Dose 50 MG; Start 09/07/16 at 09:00 Docusate Sodium (Colace) 100 mg BID PRN PO CONSTIPATION Last administered on 05:22; Admin Dose 100 MG; Start 09/07/16 at 00:00; Status Future Hold Escitalopram Oxalate (Lexapro) 5 mg DAILY PO Last administered on 10/30/16 09: 04; Admin Dose 5 MG; Start 09/07/16 at 09:00 Megestrol Acetate (Megace Susp) 400 mg BID PO Last administered on 10/30/16 09 :03; Admin Dose 400 MG; Start 09/07/16 at 09:00 Methylnaltrexone [place] (Relistor) 12 mg Q48H SC Last administered on 23:54; Admin Dose 12 MG; Start 09/07/16 at 00:00; Status Future Hold Ondansetron HCl (Zofran Tab) 4 mg Q6H PRN PO NAUSEA AND/OR VOMITING Last administered on 10/19/16 18:17; Admin Dose 4 MG; Start 09/07/16 at 00:00 Acetaminophen (Tylenol Tab) 500 mg Q4H PRN PO PAIN AND OR ELEVATED TEMP Last administered on 10/05/16 15:37; Admin Dose 500 MG; Start 09/07/16 at 21:30 IV Flush (NS 10 ml) 10 ml PRN PRN IV IV PROTOCOL; Start 09/11/16 at 10:00 Calcium/Vitamin D (Oyster Shell/ Vit-D (500/200)) 1 tab BID PO Last administered on 10/30/16 09:04; Admin Dose 1 TAB; Start 09/12/16 at 14:00 IV Flush 10 ml 10 ml PRN PRN IV IV PROTOCOL; Start 09/21/16 at 12:00 Ondansetron HCl/ Sodium Chloride (Zofran Inj/NS) 54 ml @ 216 mls/hr Q12H PRN IV NAUSEA AND/OR VOMITING; Start 09/29/16 at 22:00 Prednisone (Prednisone) 5 mg BID PO Last administered on 10/30/16 09:03; Admin Dose 5 MG; Start 09/29/16 at 21:00 Bisacodyl (Dulcolax Supp) 10 mg DAILY PRN [place] CONSTIPATION Last administered on 10/07/16 03:07; Admin Dose 10 MG; Start 10/07/16 at 03:00 Fidaxomicin (Dificid) 200 mg BID PO Last administered on 10/30/16 09:04; Admin Dose 200 MG; Start 10/17/16 at 10:30 Methadone HCl (Methadone Liq (Ped)) 3 mg Q6 PO Last administered on 10/28/16 23:40; Admin Dose 3 MG; Start 10/19/16 at 18:00 Cholestyramine Resin 4 gm 4 gm BID PO Last administered on 10/30/16 09:03; Admin Dose 4 GM; Start 10/22/16 at 21:00 Filgrastim/ Dextrose (Neupogen/D5W) 51 ml @ 102 mls/hr DAILY@17 IVPB Last administered on 10/29/16 17:29; Admin Dose 102 MLS/HR; Start 10/25/16 at 17:00 Vancomycin HCl (Vancomycin Oral Syringe) 250 mg Q6 PO Last administered on 10/30 12:28; Admin Dose 250 MG; Start 10/25/16 at 18:00 Metronidazole (Flagyl) 500 mg Q8 PO Last administered on 10/28/16 22:48; Admin Dose 500 MG; Start 10/25/16 at 14:00 Fluconazole (Diflucan) 100 mg DAILY PO Last administered on 10/30/16 09:04; Admin Dose 100 MG; Start 10/26/16 at 16:00 Hydromorphone HCl (Dilaudid) 2.5 mg Q3H PRN IV PAIN Last administered on 11:07; Admin Dose 2.5 MG; Start 10/28/16 at 18:30 Epinephrine (Racepinephrine 2.25% (Neb)) 0.5 ml ONCE ONCE HHN Last administered on 10/29/16 03:44; Admin Dose 0.5 ML; Start 10/29/16 at 03:30; Stop 10/29/16 at 03:31 Dexamethasone 4 mg 4 mg Q6H IV Last administered on 10/30/16 11:07; Admin Dose 4 MG; Start 10/29/16 at 03:45 Potassium Chloride/Sodium Chloride (KCl/NS) 110 ml @ 55 mls/hr ONCE ONCE IVPB Last administered on 10/29/16 15:17; Admin Dose 55 MLS/HR; Start 10/29/16 at 16:00; Stop 10/29/16 at 17:59 Gentamicin Sulfate GENTAMICIN PER PHARM... NOTE XX ; Start 10/29/16 at 16:30; Stop 11/03/16 at 16:29 Dextrose/Sodium Chloride 1,000 ml @ 75 mls/hr [id number] IV Last administered on 10/30/16 09:03; Admin Dose 75 MLS/HR; Start 10/29/16 at 18:30 Gentamicin Sulfate/Sodium Chloride (Gentamicin/NS) 107.5 ml @ 103.75 mls/ hr Q24H IVPB ; Start 10/30/16 at 22:00; Stop 11/03/16 at 21:59 KENDAL BELLO Oct 30, 2016 13:18
[2016-10-30] MEDS ORDERED: PANTOPRAZOLE 40 MG INJ IV ONE (15:00)
[2016-10-30 15:40] LABS: HEMATOCRIT 25.7 % (42.0-52.0); HEMOGLOBIN 8.8 g/dl (14.0-18.0)
--- NOTE | 2016-10-30 16:21 | CONS ---
Date/Time of Note Date/Time of Note DATE: 10/30/16 TIME: 16:18 Consult Date/Type/Reason Admit Date/Time Sep 06, 2016 at 22:01 Initial Consult Date 10/29/16 Type of Consultation: Pulm Ordering Provider: TIMOTHY MARAVILLA MD Subjective No events. Seen by ENT. 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 Objective Vital Signs Date Time Temp Pulse Resp B/P Pulse Ox O2 Delivery O2 Flow Rate FiO2 10/30/16 15:43 98.6 103 18 125/84 100 10/30/16 14:42 10.0 10/30/16 08:30 60 10/30/16 08:30 Aerosol Simple Mask Intake and Output 10/29/16 10/29/16 10/30/16 15:00 23:00 07:00 Intake Total 100 ml 461 ml 900 ml Output Total 2100 ml 850 ml Balance 100 ml -1639 ml 50 ml HEENT: Normocephalic, atraumatic. NECK: Supple. There is fine inspiratory stridor heard on auscultation of the neck. CARDIOVASCULAR: Tachycardic, S1, S2. No murmurs, rubs, or gallops. CHEST: There is some transmission of the stridor heard at the left greater than the right lung field. ABDOMEN: Soft, nontender. EXTREMITIES: No cyanosis, clubbing, or edema. Results/Medications Result Diagram: 10/30/16 1500 10/30/16 0600 Results 24 hrs Laboratory Tests Test 10/30/16 06:00 10/30/16 15:00 Anion Gap 10 Anisocytosis 1+ Band Neutrophils % 32.0 H Basophils # Basophils % Blood Morphology Comment Blood Urea Nitrogen 8 Calcium Level 7.1 L Carbon Dioxide Level 27 Chloride Level 101 Creatinine 0.25 L Differential Comment MANUAL DIFF Dimorphic Red Blood Cells OCCASIONAL Eosinophils # Eosinophils % Glucose Level 130 Hematocrit 25.5 L 25.7 L Hemoglobin 8.8 L 8.8 L Lymphocytes # 0.3 L Lymphocytes % 7.0 L Mean Corpuscular Hemoglobin 29.4 Mean Corpuscular Hemoglobin Concent 34.6 Mean Corpuscular Volume 84.8 Mean Platelet Volume 9.5 Metamyelocytes # 0.3 Metamyelocytes % 7.0 H Monocytes # 0.3 Monocytes % 7.0 Myelocytes # 0.2 Myelocytes % 4.0 H Neutrophils # 2.1 Neutrophils % 43.0 Nucleated Red Blood Cells # Nucleated Red Blood Cells % Platelet Count 28 *L Platelet Estimate PLT APPEAR DECREASED Potassium Level 4.8 Random Gentamicin Level 2.4 Red Blood Count 3.01 L Red Cell Distribution Width 16.2 H Sodium Level 133 L White Blood Count 4.9 Medications Current Medications Bicalutamide (Casodex) 50 mg QAM PO Last administered on 10/30/16 09:50; Admin Dose 50 MG; Start 09/07/16 at 09:00 Docusate Sodium (Colace) 100 mg BID PRN PO CONSTIPATION Last administered on 05:22; Admin Dose 100 MG; Start 09/07/16 at 00:00; Status Future Hold Escitalopram Oxalate (Lexapro) 5 mg DAILY PO Last administered on 10/30/16 09: 04; Admin Dose 5 MG; Start 09/07/16 at 09:00 Megestrol Acetate (Megace Susp) 400 mg BID PO Last administered on 10/30/16 09 :03; Admin Dose 400 MG; Start 09/07/16 at 09:00 Methylnaltrexone [place] (Relistor) 12 mg Q48H SC Last administered on 23:54; Admin Dose 12 MG; Start 09/07/16 at 00:00; Status Future Hold Ondansetron HCl (Zofran Tab) 4 mg Q6H PRN PO NAUSEA AND/OR VOMITING Last administered on 10/19/16 18:17; Admin Dose 4 MG; Start 09/07/16 at 00:00 Acetaminophen (Tylenol Tab) 500 mg Q4H PRN PO PAIN AND OR ELEVATED TEMP Last administered on 10/05/16 15:37; Admin Dose 500 MG; Start 09/07/16 at 21:30 IV Flush (NS 10 ml) 10 ml PRN PRN IV IV PROTOCOL; Start 09/11/16 at 10:00 Calcium/Vitamin D (Oyster Shell/ Vit-D (500/200)) 1 tab BID PO Last administered on 10/30/16 09:04; Admin Dose 1 TAB; Start 09/12/16 at 14:00 IV Flush 10 ml 10 ml PRN PRN IV IV PROTOCOL; Start 09/21/16 at 12:00 Ondansetron HCl/ Sodium Chloride (Zofran Inj/NS) 54 ml @ 216 mls/hr Q12H PRN IV NAUSEA AND/OR VOMITING; Start 09/29/16 at 22:00 Prednisone (Prednisone) 5 mg BID PO Last administered on 10/30/16 09:03; Admin Dose 5 MG; Start 09/29/16 at 21:00 Bisacodyl (Dulcolax Supp) 10 mg DAILY PRN [place] CONSTIPATION Last administered on 10/07/16 03:07; Admin Dose 10 MG; Start 10/07/16 at 03:00 Fidaxomicin (Dificid) 200 mg BID PO Last administered on 10/30/16 09:04; Admin Dose 200 MG; Start 10/17/16 at 10:30 Methadone HCl (Methadone Liq (Ped)) 3 mg Q6 PO Last administered on 10/30/16 14:11; Admin Dose 3 MG; Start 10/19/16 at 18:00 Cholestyramine Resin 4 gm 4 gm BID PO Last administered on 10/30/16 09:03; Admin Dose 4 GM; Start 10/22/16 at 21:00 Filgrastim/ Dextrose (Neupogen/D5W) 51 ml @ 102 mls/hr DAILY@17 IVPB Last administered on 10/29/16 17:29; Admin Dose 102 MLS/HR; Start 10/25/16 at 17:00 Vancomycin HCl (Vancomycin Oral Syringe) 250 mg Q6 PO Last administered on 10/30 12:28; Admin Dose 250 MG; Start 10/25/16 at 18:00 Metronidazole (Flagyl) 500 mg Q8 PO Last administered on 10/30/16 14:11; Admin Dose 500 MG; Start 10/25/16 at 14:00 Fluconazole (Diflucan) 100 mg DAILY PO Last administered on 10/30/16 09:04; Admin Dose 100 MG; Start 10/26/16 at 16:00 Hydromorphone HCl (Dilaudid) 2.5 mg Q3H PRN IV PAIN Last administered on 11:07; Admin Dose 2.5 MG; Start 10/28/16 at 18:30 Dexamethasone (Decadron) 4 mg Q6H IV Last administered on 10/30/16 15:48; Admin Dose 4 MG; Start 10/29/16 at 03:45 Gentamicin Sulfate GENTAMICIN PER PHARM... NOTE XX ; Start 10/29/16 at 16:30; Stop 11/03/16 at 16:29 Dextrose/Sodium Chloride 1,000 ml @ 75 mls/hr [id number] IV Last administered on 10/30/16t 09:03; Admin Dose 75 MLS/HR; Start 10/29/16 at 18:30 Gentamicin Sulfate 300 mg/ Sodium Chloride 107.5 ml @ 103.75 mls/ hr Q24H IVPB ; Start 10/30/16 at 22:00; Stop 11/03/16 at 21:59 Pantoprazole/ Sodium Chloride (Protonix Iv/NS) 100 ml @ 10 mls/hr Q10H IV ; Start 10/30/16 at 16:00 Assessment/Plan Additional Assessment/Plan IMPRESSION: Stridor in an extremely frail gentleman with advanced metastatic prostatic cancer status post chemotherapy. 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 RECOMMENDATIONS: 1. Continue Decadron for now IV. 2. Goals of care discussion with family 3. Would recommend against trach as this gentleman is dying 4. Palliative Care consult. NELSON PRADO MD Oct 30, 2016 16:21
[2016-10-30] MEDS: FILGRASTIM 300 MCG in DEXTROSE 5% 50 ML IVPB SCH (17:07)
[2016-10-30] MEDS: PANTOPRAZOLE IV 80 MG in SOD CHLORIDE 0.9% 100 ML IV SCH (17:15)
--- NOTE | 2016-10-30 18:22 | CONS ---
Date/Time of Note Date/Time of Note DATE: 10/30/16 TIME: 18:19 Assessment/Plan Assessment/Plan Additional Assessment/Plan Additional Assessment/Plan 1. Clostridium difficile colitis. 2. Abdominal pain: worsening, associated with nausea and vomiting. ddx include C. Diff colitis vs side effects from chemotherapy vs gastritis, duodenitis, esophagitis. 3. anemia 4. Metastatic prostate cancer. Dr. Hernandez is following patient in oncology consultation. Continue chemotherapy and steroids. 5. MRSA 6. Abnormal alkaline po4 secondary to jose mets. 7.diarrhea secondary to C.Difficile,better 8.neutropenia,on Neupogen,better 9.Rectal bleeding, r/o radiation proctitis,diverticulosis,aggravated by thrombocytopenia Recommendations: 1. Continue vancomycin for C. Diff. Consider fidaxomicin per ID. 3. continue pain control 4. ordered occult stool blood negative 7. continue other supportive care per pcp and other consultants 8.platelete transfusion,keep platelete count above 50,000 8.Questran,increase dose 9,enteral feeding,clinically looks better Consultation Date/Type/Reason Admit Date/Time Sep 06, 2016 at 22:01 Initial Consult Date 09/08/16 Type of Consultation: Pulm Referring Provider: TIMOTHY MARAVILLA MD 24 HR Interval Summary Free Text/Dictation rectal bleeding Exam/Review of Systems Vital Signs Vitals Vital Signs Date Time Temp Pulse Resp B/P Pulse Ox O2 Delivery O2 Flow Rate FiO2 10/30/16 16:19 90 10/30/16 15:43 98.6 18 125/84 100 10/30/16 14:42 10.0 10/30/16 08:30 60 10/30/16 08:30 Aerosol Simple Mask Intake and Output 10/29/16 10/29/16 10/30/16 15:00 23:00 07:00 Intake Total 100 ml 461 ml 900 ml Output Total 2100 ml 850 ml Balance 100 ml -1639 ml 50 ml Exam Constitutional: alert, oriented, well developed Psych: nl mood/affect, no complaints Head: atraumatic, normocephalic Eyes: EOMI, PERRL, nl conjunctiva, nl lids, nl sclera ENMT: nl external ears & nose, nl lips & teeth, nl nasal mucosa & septum Neck: non-tender, supple Respiratory: clear to auscultation, normal air movement Cardiovascular: nl pulses, regular rate and rhythm Gastrointestinal: nl liver, spleen, non-tender, soft Musculoskeletal: nl extremities to inspection, nl gait and stance Extremities: normal pulses 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: [employer] II-XII intact, nl mental status, nl speech, nl strength Skin: nl turgor, No rash or lesions Lymph: nl lymph nodes Results Result Diagram: 10/30/16 1500 10/30/16 0600 Results 24 hrs Laboratory Tests Test 10/30/16 06:00 10/30/16 15:00 Anion Gap 10 Anisocytosis 1+ Band Neutrophils % 32.0 H Basophils # Basophils % Blood Morphology Comment Blood Urea Nitrogen 8 Calcium Level 7.1 L Carbon Dioxide Level 27 Chloride Level 101 Creatinine 0.25 L Differential Comment MANUAL DIFF Dimorphic Red Blood Cells OCCASIONAL Eosinophils # Eosinophils % Glucose Level 130 Hematocrit 25.5 L 25.7 L Hemoglobin 8.8 L 8.8 L Lymphocytes # 0.3 L Lymphocytes % 7.0 L Mean Corpuscular Hemoglobin 29.4 Mean Corpuscular Hemoglobin Concent 34.6 Mean Corpuscular Volume 84.8 Mean Platelet Volume 9.5 Metamyelocytes # 0.3 Metamyelocytes % 7.0 H Monocytes # 0.3 Monocytes % 7.0 Myelocytes # 0.2 Myelocytes % 4.0 H Neutrophils # 2.1 Neutrophils % 43.0 Nucleated Red Blood Cells # Nucleated Red Blood Cells % Platelet Count 28 *L Platelet Estimate PLT APPEAR DECREASED Potassium Level 4.8 Random Gentamicin Level 2.4 Red Blood Count 3.01 L Red Cell Distribution Width 16.2 H Sodium Level 133 L White Blood Count 4.9 Medications Medications Current Medications Bicalutamide (Casodex) 50 mg QAM PO Last administered on 10/30/16 09:50; Admin Dose 50 MG; Start 09/07/16 at 09:00 Docusate Sodium (Colace) 100 mg BID PRN PO CONSTIPATION Last administered on 05:22; Admin Dose 100 MG; Start 09/07/16 at 00:00; Status Future Hold Escitalopram Oxalate (Lexapro) 5 mg DAILY PO Last administered on 10/30/16 09: 04; Admin Dose 5 MG; Start 09/07/16 at 09:00 Megestrol Acetate (Megace Susp) 400 mg BID PO Last administered on 10/30/16 09 :03; Admin Dose 400 MG; Start 09/07/16 at 09:00 Methylnaltrexone [place] (Rel[place]) 12 mg Q48H SC Last administered on 23:54; Admin Dose 12 MG; Start 09/07/16 at 00:00; Status Future Hold Ondansetron HCl (Zofran Tab) 4 mg Q6H PRN PO NAUSEA AND/OR VOMITING Last administered on 10/19/16 18:17; Admin Dose 4 MG; Start 09/07/16 at 00:00 Acetaminophen (Tylenol Tab) 500 mg Q4H PRN PO PAIN AND OR ELEVATED TEMP Last administered on 10/05/16 15:37; Admin Dose 500 MG; Start 09/07/16 at 21:30 IV Flush (NS 10 ml) 10 ml PRN PRN IV IV PROTOCOL; Start 09/11/16 at 10:00 Calcium/Vitamin D ([place]yster [place]/ Vit-D (500/200)) 1 tab BID PO Last administered on 10/30/16 09:04; Admin Dose 1 TAB; Start 09/12/16 at 14:00 IV Flush 10 ml 10 ml PRN PRN IV IV PROTOCOL; Start 09/21/16 at 12:00 Ondansetron HCl/ Sodium Chloride (Zofran Inj/NS) 54 ml @ 216 mls/hr Q12H PRN IV NAUSEA AND/OR VOMITING; Start 09/29/16 at 22:00 Prednisone (Prednisone) 5 mg BID PO Last administered on 10/30/16 09:03; Admin Dose 5 MG; Start 09/29/16 at 21:00 Bisacodyl (Dulcolax Supp) 10 mg DAILY PRN [place] CONSTIPATION Last administered on 10/07/16 03:07; Admin Dose 10 MG; Start 10/07/16 at 03:00 Fidaxomicin (Dificid) 200 mg BID PO Last administered on 10/30/16 09:04; Admin Dose 200 MG; Start 10/17/16 at 10:30 Methadone HCl (Methadone Liq (Ped)) 3 mg Q6 PO Last administered on 10/30/16 14:11; Admin Dose 3 MG; Start 10/19/16 at 18:00 Cholestyramine Resin 4 gm 4 gm BID PO Last administered on 10/30/16 09:03; Admin Dose 4 GM; Start 10/22/16 at 21:00 Filgrastim/ Dextrose (Neupogen/D5W) 51 ml @ 102 mls/hr DAILY@17 IVPB Last administered on 10/30/16 17:07; Admin Dose 102 MLS/HR; Start 10/25/16 at 17:00 Vancomycin HCl (Vancomycin Oral Syringe) 250 mg Q6 PO Last administered on 10/30 12:28; Admin Dose 250 MG; Start 10/25/16 at 18:00 Metronidazole (Flagyl) 500 mg Q8 PO Last administered on 10/30/16 14:11; Admin Dose 500 MG; Start 10/25/16 at 14:00 Fluconazole (Diflucan) 100 mg DAILY PO Last administered on 10/30/16 09:04; Admin Dose 100 MG; Start 10/26/16 at 16:00 Hydromorphone HCl (Dilaudid) 2.5 mg Q3H PRN IV PAIN Last administered on 11:07; Admin Dose 2.5 MG; Start 10/28/16 at 18:30 Dexamethasone (Decadron) 4 mg Q6H IV Last administered on 10/30/16 15:48; Admin Dose 4 MG; Start 10/29/16 at 03:45 Gentamicin Sulfate GENTAMICIN PER PHARM... NOTE XX ; Start 10/29/16 at 16:30; Stop 11/03/16 at 16:29 Dextrose/Sodium Chloride 1,000 ml @ 75 mls/hr [id number] IV Last administered on 10/30/16 09:03; Admin Dose 75 MLS/HR; Start 10/29/16 at 18:30 Gentamicin Sulfate 300 mg/ Sodium Chloride 107.5 ml @ 103.75 mls/ hr Q24H IVPB ; Start 10/30/16 at 22:00; Stop 11/03/16 at 21:59 Pantoprazole/ Sodium Chloride (Protonix Iv/NS) 100 ml @ 10 mls/hr Q10H IV Last administered on 10/30/16 17:15; Admin Dose 10 MLS/HR; Start 10/30/16 at 16 :00 MICHAEL COELHO MD Oct 30, 2016 18:22
--- NOTE | 2016-10-30 18:40 | CONS ---
Date/Time of Note Date/Time of Note DATE: 10/30/16 TIME: 18:39 Assessment/Plan Assessment/Plan Chief Complaint/Hosp Course Metastatic prostate cancer. FAMILY CONFERENCE RE DX, PROGNOSIS AND TREATMENT OPTIONS MEETING TOMORROW NEUTROPENIA POST NEUPOGEN ANEMIA POST PRBC MONITOR CLOSELY OBSERVE FOR BLEEDING AND HEMOLYSIS Thrombocytopenia. Continue to monitor platelets. transfuse as needed PANCYTOPENIA MONITOR DECONDITIONING PT Acute on chronic back pain. PAIN CONTROL C DIFF COLITIS ATB PER ID Problems: Consultation Date/Type/Reason Admit Date/Time Sep 06, 2016 at 22:01 Initial Consult Date 09/08/16 Referring Provider: TIMOTHY MARAVILLA MD 24 HR Interval Summary Free Text/Dictation FAMILY CONFERENCE TOMORROW NO CHANGES IN CONDITION OVERALL DECLINING Exam/Review of Systems Vital Signs Vitals Vital Signs Date Time Temp Pulse Resp B/P Pulse Ox O2 Delivery O2 Flow Rate FiO2 10/30/16 16:19 90 10/30/16 15:43 98.6 18 125/84 100 10/30/16 14:42 10.0 10/30/16 08:30 60 10/30/16 08:30 Aerosol Simple Mask Intake and Output 10/29/16 10/29/16 10/30/16 15:00 23:00 07:00 Intake Total 100 ml 461 ml 900 ml Output Total 2100 ml 850 ml Balance 100 ml -1639 ml 50 ml Exam GENERAL: The patient is lethargic but arousable. HEENT: No eye discharge. Oropharynx revealed dry mucosa. NECK: No mass. LUNGS: Occasional coarse breath sounds. CARDIOVASCULAR: S1, S2 normal. Sinus tachycardia. ABDOMEN: Soft, nondistended, nontender. EXTREMITIES: No leg edema. Cachectic extremities. Results Result Diagram: 10/30/16 1500 10/30/16 0600 Results 24 hrs Laboratory Tests Test 10/30/16 06:00 10/30/16 15:00 Anion Gap 10 Anisocytosis 1+ Band Neutrophils % 32.0 H Basophils # Basophils % Blood Morphology Comment Blood Urea Nitrogen 8 Calcium Level 7.1 L Carbon Dioxide Level 27 Chloride Level 101 Creatinine 0.25 L Differential Comment MANUAL DIFF Dimorphic Red Blood Cells OCCASIONAL Eosinophils # Eosinophils % Glucose Level 130 Hematocrit 25.5 L 25.7 L Hemoglobin 8.8 L 8.8 L Lymphocytes # 0.3 L Lymphocytes % 7.0 L Mean Corpuscular Hemoglobin 29.4 Mean Corpuscular Hemoglobin Concent 34.6 Mean Corpuscular Volume 84.8 Mean Platelet Volume 9.5 Metamyelocytes # 0.3 Metamyelocytes % 7.0 H Monocytes # 0.3 Monocytes % 7.0 Myelocytes # 0.2 Myelocytes % 4.0 H Neutrophils # 2.1 Neutrophils % 43.0 Nucleated Red Blood Cells # Nucleated Red Blood Cells % Platelet Count 28 *L Platelet Estimate PLT APPEAR DECREASED Potassium Level 4.8 Random Gentamicin Level 2.4 Red Blood Count 3.01 L Red Cell Distribution Width 16.2 H Sodium Level 133 L White Blood Count 4.9 Medications Medications Current Medications Bicalutamide (Casodex) 50 mg QAM PO Last administered on 10/30/16 09:50; Admin Dose 50 MG; Start 09/07/16 at 09:00 Docusate Sodium (Colace) 100 mg BID PRN PO CONSTIPATION Last administered on 05:22; Admin Dose 100 MG; Start 09/07/16 at 00:00; Status Future Hold Escitalopram Oxalate (Lexapro) 5 mg DAILY PO Last administered on 10/30/16 09: 04; Admin Dose 5 MG; Start 09/07/16 at 09:00 Megestrol Acetate (Megace Susp) 400 mg BID PO Last administered on 10/30/16 09 :03; Admin Dose 400 MG; Start 09/07/16 at 09:00 Methylnaltrexone [place] (Relistor) 12 mg Q48H SC Last administered on 23:54; Admin Dose 12 MG; Start 09/07/16 at 00:00; Status Future Hold Ondansetron HCl (Zofran Tab) 4 mg Q6H PRN PO NAUSEA AND/OR VOMITING Last administered on 10/19/16 18:17; Admin Dose 4 MG; Start 09/07/16 at 00:00 Acetaminophen (Tylenol Tab) 500 mg Q4H PRN PO PAIN AND OR ELEVATED TEMP Last administered on 10/05/16 15:37; Admin Dose 500 MG; Start 09/07/16 at 21:30 IV Flush (NS 10 ml) 10 ml PRN PRN IV IV PROTOCOL; Start 09/11/16 at 10:00 Calcium/Vitamin D (Oyster Shell/ Vit-D (500/200)) 1 tab BID PO Last administered on 10/30/16 09:04; Admin Dose 1 TAB; Start 09/12/16 at 14:00 IV Flush 10 ml 10 ml PRN PRN IV IV PROTOCOL; Start 09/21/16 at 12:00 Ondansetron HCl/ Sodium Chloride (Zofran Inj/NS) 54 ml @ 216 mls/hr Q12H PRN IV NAUSEA AND/OR VOMITING; Start 09/29/16 at 22:00 Prednisone (Prednisone) 5 mg BID PO Last administered on 10/30/16 09:03; Admin Dose 5 MG; Start 09/29/16 at 21:00 Bisacodyl (Dulcolax Supp) 10 mg DAILY PRN [place] CONSTIPATION Last administered on 10/07/16 03:07; Admin Dose 10 MG; Start 10/07/16 at 03:00 Fidaxomicin (Dificid) 200 mg BID PO Last administered on 10/30/16 09:04; Admin Dose 200 MG; Start 10/17/16 at 10:30 Methadone HCl (Methadone Liq (Ped)) 3 mg Q6 PO Last administered on 10/30/16 14:11; Admin Dose 3 MG; Start 10/19/16 at 18:00 Cholestyramine Resin 4 gm 4 gm BID PO Last administered on 10/30/16 09:03; Admin Dose 4 GM; Start 10/22/16 at 21:00 Filgrastim/ Dextrose (Neupogen/D5W) 51 ml @ 102 mls/hr DAILY@17 IVPB Last administered on 10/30/16 17:07; Admin Dose 102 MLS/HR; Start 10/25/16 at 17:00 Vancomycin HCl (Vancomycin Oral Syringe) 250 mg Q6 PO Last administered on 10/30 12:28; Admin Dose 250 MG; Start 10/25/16 at 18:00 Metronidazole (Flagyl) 500 mg Q8 PO Last administered on 10/30/16 14:11; Admin Dose 500 MG; Start 10/25/16 at 14:00 Fluconazole (Diflucan) 100 mg DAILY PO Last administered on 10/30/16 09:04; Admin Dose 100 MG; Start 10/26/16 at 16:00 Hydromorphone HCl (Dilaudid) 2.5 mg Q3H PRN IV PAIN Last administered on 11:07; Admin Dose 2.5 MG; Start 10/28/16 at 18:30 Dexamethasone (Decadron) 4 mg Q6H IV Last administered on 10/30/16 15:48; Admin Dose 4 MG; Start 10/29/16 at 03:45 Gentamicin Sulfate GENTAMICIN PER PHARM... NOTE XX ; Start 10/29/16 at 16:30; Stop 11/03/16 at 16:29 Dextrose/Sodium Chloride 1,000 ml @ 75 mls/hr [id number] IV Last administered on 10/30/16 09:03; Admin Dose 75 MLS/HR; Start 10/29/16 at 18:30 Gentamicin Sulfate 300 mg/ Sodium Chloride 107.5 ml @ 103.75 mls/ hr Q24H IVPB ; Start 10/30/16 at 22:00; Stop 11/03/16 at 21:59 Pantoprazole/ Sodium Chloride (Protonix Iv/NS) 100 ml @ 10 mls/hr Q10H IV Last administered on 10/30/16 17:15; Admin Dose 10 MLS/HR; Start 10/30/16 at 16 :00 JARAD CHOI MD Oct 30, 2016 18:40
[2016-10-30 19:14] LABS: HEMOGLOBIN 9.7 g/dl (14.0-18.0)
--- NOTE | 2016-10-30 20:04 | CONS ---
DATE OF ADMISSION: 09/06/2016 DATE OF CONSULTATION: 10/30/2016 REQUESTING PHYSICIAN: Del Nichols MD REASON FOR CONSULTATION: Gross hematuria. HISTORY OF PRESENT ILLNESS: This is a 60-year-old male who is known to have a history of metastatic prostate cancer and has been in the hospital since 09/06/2016. At that time, he was admitted for h is anemia and prostate CA. He has been on chemotherapy and followed by Dr. Hernandez and the prosta te cancer is metastatic. The patient does also have C. difficile colitis and is on chemotherapy for his prostate cancer by the oncologist, Dr. Hernandez. He does have abdominal pain which is associa yue with nausea and vomiting and diarrhea. This is most likely related to his C. difficile colitis. He does have anemia. He has a history of MRSA, abnormal alkaline phosphatase because of the prost ate metastatic bony cancer, neutropenia and he also has rectal bleeding. Initially his prostate can cer was diagnosed and then treated with radiation therapy. MEDICATIONS: He is presently on include: 1. Gentamicin. 2. Protonix. 3. Dexamethasone 4 mg every 6 hours. 4. DuoNeb. 5. Albuterol/ipratropium bromide. 6. He is on Dilaudid for pain. 7. Diflucan 100 mg daily. 8. Vancomycin p.o. 9. Flagyl 500 mg p.o. q. 8 hours. 10. Questran and methadone. 11. He is also on the fidaxomicin (Dificid). 12. Dulcolax. 13. Tylenol. 14. Lexapro. 15. Megace 400 mg twice a day. PHYSICAL EXAMINATION: GENERAL: Reveals an elderly male, cachectic, who weighs 53.1 kg and is 66 inches tall. VITAL SIGNS: Temperature is 98.6, pulse is 90, respiration 18, blood pressure 125/84. ABDOMEN: A little tense but there is no urinary retention. EXTERNAL GENITALIA: He does have an indwelling White catheter that is draining blood-tinged urine. I checked the catheter and the catheter is inside the bladder, but the urine that is draining looks sanguinopurulent, most likely infected. In fact, he does have a urine culture that is showing Pro teus mirabilis, more than 100,000 colonies per mL and that is sensitive to trimethoprim sulfa, tobra mycin, ampicillin and cefotaxime. Is resistant to Cipro and Levaquin and is resistant to imipenem. IMPRESSION: Carcinoma of the prostate, metastatic. The patient is on chemotherapy. Also, the chela ent does have urinary tract infection and is on antibiotic. Most likely the hematuria is because of the infection. Also, as the patient had initially radiation treatment to his prostate cancer, the patient did have radiation therapy by Dr. Zhu. Therefore, the hematuria could be also from rad iation cystitis. Recommendation at the present is to continue his antibiotic and hydrate him and hi s BUN is 8, creatinine 0.25 and his hemoglobin is 8.8, hematocrit 25.5, however, the platelet count is 28,000 and that also could be the reason for his hematuria. For the present time, continue the p resent treatment. Dictated By: LINDSAY GUIDO/ADRIANA Conf#: [id number] DID#: [id number]
[2016-10-30] MEDS: GENTAMICIN 300 MG in SOD CHLORIDE 0.9% 100 ML IVPB SCH (21:37)
[2016-10-31] VITALS (12 sets, daily range): BP systolic 112–126; BP diastolic 79–86; PULSE 84–100; RESP 16–23
[2016-10-31 00:55] LABS: HEMATOCRIT 26.3 % (42.0-52.0)
[2016-10-31] MEDS: PANTOPRAZOLE IV 80 MG in SOD CHLORIDE 0.9% 100 ML IV SCH ×3 (01:52→22:15)
[2016-10-31] MEDS: DEXAMETHASONE 4 MG/ML 1 ML INJ IV SCH ×4 (03:42→22:15)
[2016-10-31] MEDS: METHADONE (1 MG/ML 5 ML PO UD SYG) PO SCH ×3 (05:40→17:53)
[2016-10-31] MEDS: metroNIDAZOLE 500 MG TAB PO SCH ×3 (05:40→22:15)
[2016-10-31] MEDS: VANCOMYCIN HCL 250 MG/5ML POSYG PO SCH ×3 (05:42→17:53)
[2016-10-31] MEDS: MEGESTROL (40 MG/ML) 10ML CUP PO SCH ×2 (09:45→22:14)
[2016-10-31] MEDS: predniSONE 5 MG TAB PO SCH ×2 (09:45→22:15)
[2016-10-31] MEDS: FIDAXOMICIN 200 MG TABLET PO SCH ×2 (09:45→22:15)
[2016-10-31] MEDS: FLUCONAZOLE 100 MG TAB PO SCH (09:45)
[2016-10-31] MEDS: ESCITALOPRAM 10 MG TAB PO SCH (09:45)
[2016-10-31] MEDS: CALCIUM/VITAMIN D (500/200) TAB PO SCH ×2 (09:46→22:15)
[2016-10-31] MEDS: CHOLESTYRAMINE (LIGHT) 4 GM PACKET PO SCH ×2 (09:46→22:15)
[2016-10-31] MEDS: BICALUTAMIDE 50 MG TAB PO SCH (10:42)
[2016-10-31 11:23] LABS: MEAN CORPUSCULAR HEMOGLOBIN 29.2 pg (29.0-33.0); MEAN CORPUSCULAR HGB CONC 34.6 g/dl (32.0-37.0); MEAN CORPUSCULAR VOLUME 84.6 fl (82.0-101.0); MEAN PLATELET VOLUME 7.7 fl (7.4-10.4); PLATELET COUNT 52 10^3/UL (140-440); RED BLOOD COUNT 2.72 10^6/ul (4.70-6.10); RED CELL DISTRIBUTION WIDTH 15.4 % (11.5-14.5); UNCORRECTED WBC 3.7 10^3/ul (4.8-10.8); WHITE BLOOD COUNT 3.7 10^3/ul (4.8-10.8)
[2016-10-31 11:25] LABS: CONDITION 1; LH ANALYZER COMMENTS 1; SUSPECT 1
--- NOTE | 2016-10-31 11:25 | CONS ---
Date/Time of Note Date/Time of Note DATE: 10/31/16 TIME: 11:24 Assessment/Plan Assessment/Plan Chief Complaint/Hosp Course Metastatic prostate cancer. FAMILY CONFERENCE RE DX, PROGNOSIS AND TREATMENT OPTIONS COMFORT CARE NEUTROPENIA POST NEUPOGEN ANEMIA POST PRBC MONITOR CLOSELY OBSERVE FOR BLEEDING AND HEMOLYSIS Thrombocytopenia. Continue to monitor platelets. transfuse as needed PANCYTOPENIA MONITOR DECONDITIONING PT Acute on chronic back pain. PAIN CONTROL C DIFF COLITIS ATB PER ID Problems: Consultation Date/Type/Reason Admit Date/Time Sep 06, 2016 at 22:01 Initial Consult Date 09/08/16 Referring Provider: TIMOTHY MARAVILLA MD 24 HR Interval Summary Free Text/Dictation ALL NOTED FAMILY WANT COMFORT CARE Exam/Review of Systems Vital Signs Vitals Vital Signs Date Time Temp Pulse Resp B/P Pulse Ox O2 Delivery O2 Flow Rate FiO2 10/31/16 09:39 84 10/31/16 08:55 100 5.0 28 10/31/16 07:58 98.3 20 126/81 10/31/16 07:55 Simple Mask Intake and Output 10/30/16 10/30/16 10/31/16 15:00 23:00 07:00 Intake Total 836 ml 90 ml Output Total 1100 ml 1100 ml Balance -264 ml -1010 ml Exam GENERAL: The patient is lethargic but arousable. HEENT: No eye discharge. Oropharynx revealed dry mucosa. NECK: No mass. LUNGS: Occasional coarse breath sounds. CARDIOVASCULAR: S1, S2 normal. Sinus tachycardia. ABDOMEN: Soft, nondistended, nontender. EXTREMITIES: No leg edema. Cachectic extremities. Results Result Diagram: 10/31/16 0030 10/30/16 0600 Results 24 hrs Laboratory Tests Test 10/30/16 15:00 10/30/16 19:00 10/31/16 00:30 Hematocrit 25.7 L 28.0 L 26.3 L Hemoglobin 8.8 L 9.7 L 9.0 L Medications Medications Current Medications Bicalutamide (Casodex) 50 mg QAM PO Last administered on 10/31/16 10:42; Admin Dose 50 MG; Start 09/07/16 at 09:00 Docusate Sodium (Colace) 100 mg BID PRN PO CONSTIPATION Last administered on 05:22; Admin Dose 100 MG; Start 09/07/16 at 00:00; Status Future Hold Escitalopram Oxalate (Lexapro) 5 mg DAILY PO Last administered on 10/31/16 09: 45; Admin Dose 5 MG; Start 09/07/16 at 09:00 Megestrol Acetate (Megace Susp) 400 mg BID PO Last administered on 10/31/16 09 :45; Admin Dose 400 MG; Start 09/07/16 at 09:00 Methylnaltrexone [place] (Relistor) 12 mg Q48H SC Last administered on 23:54; Admin Dose 12 MG; Start 09/07/16 at 00:00; Status Future Hold Ondansetron HCl (Zofran Tab) 4 mg Q6H PRN PO NAUSEA AND/OR VOMITING Last administered on 10/19/16 18:17; Admin Dose 4 MG; Start 09/07/16 at 00:00 Acetaminophen (Tylenol Tab) 500 mg Q4H PRN PO PAIN AND OR ELEVATED TEMP Last administered on 10/05/16 15:37; Admin Dose 500 MG; Start 09/07/16 at 21:30 IV Flush (NS 10 ml) 10 ml PRN PRN IV IV PROTOCOL; Start 09/11/16 at 10:00 Calcium/Vitamin D (Oyster Shell/ Vit-D (500/200)) 1 tab BID PO Last administered on 10/31/16 09:46; Admin Dose 1 TAB; Start 09/12/16 at 14:00 IV Flush 10 ml 10 ml PRN PRN IV IV PROTOCOL; Start 09/21/16 at 12:00 Ondansetron HCl/ Sodium Chloride (Zofran Inj/NS) 54 ml @ 216 mls/hr Q12H PRN IV NAUSEA AND/OR VOMITING; Start 09/29/16 at 22:00 Prednisone (Prednisone) 5 mg BID PO Last administered on 10/31/16 09:45; Admin Dose 5 MG; Start 09/29/16 at 21:00 Bisacodyl (Dulcolax Supp) 10 mg DAILY PRN [place] CONSTIPATION Last administered on 10/07/16 03:07; Admin Dose 10 MG; Start 10/07/16 at 03:00 Fidaxomicin (Dificid) 200 mg BID PO Last administered on 10/31/16 09:45; Admin Dose 200 MG; Start 10/17/16 at 10:30 Cholestyramine Resin 4 gm 4 gm BID PO Last administered on 10/31/16 09:46; Admin Dose 4 GM; Start 10/22/16 at 21:00 Filgrastim/ Dextrose (Neupogen/D5W) 51 ml @ 102 mls/hr DAILY@17 IVPB Last administered on 10/30/16 17:07; Admin Dose 102 MLS/HR; Start 10/25/16 at 17:00 Vancomycin HCl (Vancomycin Oral Syringe) 250 mg Q6 PO Last administered on 10/31 05:42; Admin Dose 250 MG; Start 10/25/16 at 18:00 Metronidazole (Flagyl) 500 mg Q8 PO Last administered on 10/31/16 05:40; Admin Dose 500 MG; Start 10/25/16 at 14:00 Fluconazole (Diflucan) 100 mg DAILY PO Last administered on 10/31/16 09:45; Admin Dose 100 MG; Start 10/26/16 at 16:00 Hydromorphone HCl (Dilaudid) 2.5 mg Q3H PRN IV PAIN Last administered on 20:23; Admin Dose 2.5 MG; Start 10/28/16 at 18:30 Dexamethasone (Decadron) 4 mg Q6H IV Last administered on 10/31/16 10:17; Admin Dose 4 MG; Start 10/29/16 at 03:45 Gentamicin Sulfate GENTAMICIN PER PHARM... NOTE XX ; Start 10/29/16 at 16:30; Stop 11/03/16 at 16:29 Dextrose/Sodium Chloride 1,000 ml @ 75 mls/hr [id number] IV Last administered on 10/30/16 21:34; Admin Dose 75 MLS/HR; Start 10/29/16 at 18:30 Gentamicin Sulfate 300 mg/ Sodium Chloride 107.5 ml @ 103.75 mls/ hr Q24H IVPB Last administered on 10/30/16 21:37; Admin Dose 103.75 MLS/HR; Start at 22:00; Stop 11/03/16 at 21:59 Pantoprazole/ Sodium Chloride (Protonix Iv/NS) 100 ml @ 10 mls/hr Q10H IV Last administered on 10/31/16 01:52; Admin Dose 10 MLS/HR; Start 10/30/16 at 16 :00 Methadone HCl (Methadone Liq) 3 mg Q6 PO Last administered on 10/31/16 05:40; Admin Dose 3 MG; Start 10/31/16 at 06:00 JARAD CHOI MD Oct 31, 2016 11:25
--- NOTE | 2016-10-31 11:44 | CONS ---
Date/Time of Note Date/Time of Note DATE: 10/31/16 TIME: 11:39 Assessment/Plan Assessment/Plan Additional Assessment/Plan Assessment and recommendations; 1. Patient admitted with shortness of breath, had stridor with interval improvement. 2. Widely metastatic prostate cancer. Continue current treatment. Prognosis is poor. Consultation Date/Type/Reason Admit Date/Time Sep 06, 2016 at 22:01 Initial Consult Date 10/29/16 Type of Consultation: Pulmonary Referring Provider: TIMOTHY MARAVILLA MD 24 HR Interval Summary Free Text/Dictation Patient condition seems improved. Stridor is markedly reduced. Patient also maintaining adequate O2 saturation on supplemental oxygen as well as occasionally off supplemental oxygen when he takes off his nasal cannula. General examination middle aged man appears quite emaciated currently in no distress, awake and alert. Exam/Review of Systems Vital Signs Vitals Vital Signs Date Time Temp Pulse Resp B/P Pulse Ox O2 Delivery O2 Flow Rate FiO2 10/31/16 09:39 84 10/31/16 08:55 100 5.0 28 10/31/16 07:58 98.3 20 126/81 10/31/16 07:55 Simple Mask Intake and Output 10/30/16 10/30/16 10/31/16 15:00 23:00 07:00 Intake Total 836 ml 90 ml Output Total 1100 ml 1100 ml Balance -264 ml -1010 ml Exam H EENT examination; supple neck, no JVD. No lymphadenopathy. Patient wears dentures in upper jaw. Pupils are midsize reactive to light bilaterally. No stridor heard over trachea. Chest examination; diminished but clear breath sounds. S1-S2 audible, no murmurs. Regular rhythm. Abdomen examination; soft, nondistended. Bowel sounds audible. No organomegaly. Extremity examination; no peripheral edema. Patient has significant muscular wasting over the entire body. 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 Results Result Diagram: 10/31/16 1030 10/30/16 0600 Results 24 hrs Laboratory Tests Test 10/30/16 15:00 10/30/16 19:00 10/31/16 00:30 10/31/16 10:30 Hematocrit 25.7 L 28.0 L 26.3 L 23.0 L Hemoglobin 8.8 L 9.7 L 9.0 L 8.0 L Basophils # Pending Basophils % Pending Blood Morphology Comment Eosinophils # Pending Eosinophils % Pending Lymphocytes # Pending Lymphocytes % Pending Mean Corpuscular Hemoglobin 29.2 Mean Corpuscular Hemoglobin Concent 34.6 Mean Corpuscular Volume 84.6 Mean Platelet Volume 7.7 Monocytes # Pending Monocytes % Pending Neutrophils # Pending Neutrophils % Pending Nucleated Red Blood Cells # Pending Nucleated Red Blood Cells % Pending Platelet Count 52 #L Red Blood Count 2.72 L Red Cell Distribution Width 15.4 H White Blood Count 3.7 #L Medications Medications Current Medications Bicalutamide (Casodex) 50 mg QAM PO Last administered on 10/31/16 10:42; Admin Dose 50 MG; Start 09/07/16 at 09:00 Docusate Sodium (Colace) 100 mg BID PRN PO CONSTIPATION Last administered on 05:22; Admin Dose 100 MG; Start 09/07/16 at 00:00; Status Future Hold Escitalopram Oxalate (Lexapro) 5 mg DAILY PO Last administered on 10/31/16 09: 45; Admin Dose 5 MG; Start 09/07/16 at 09:00 Megestrol Acetate (Megace Susp) 400 mg BID PO Last administered on 10/31/16 09 :45; Admin Dose 400 MG; Start 09/07/16 at 09:00 Methylnaltrexone [place] (Relistor) 12 mg Q48H SC Last administered on 23:54; Admin Dose 12 MG; Start 09/07/16 at 00:00; Status Future Hold Ondansetron HCl (Zofran Tab) 4 mg Q6H PRN PO NAUSEA AND/OR VOMITING Last administered on 10/19/16 18:17; Admin Dose 4 MG; Start 09/07/16 at 00:00 Acetaminophen (Tylenol Tab) 500 mg Q4H PRN PO PAIN AND OR ELEVATED TEMP Last administered on 10/05/16 15:37; Admin Dose 500 MG; Start 09/07/16 at 21:30 IV Flush (NS 10 ml) 10 ml PRN PRN IV IV PROTOCOL; Start 09/11/16 at 10:00 Calcium/Vitamin D (Oyster Shell/ Vit-D (500/200)) 1 tab BID PO Last administered on 10/31/16 09:46; Admin Dose 1 TAB; Start 09/12/16 at 14:00 IV Flush 10 ml 10 ml PRN PRN IV IV PROTOCOL; Start 09/21/16 at 12:00 Ondansetron HCl/ Sodium Chloride (Zofran Inj/NS) 54 ml @ 216 mls/hr Q12H PRN IV NAUSEA AND/OR VOMITING; Start 09/29/16 at 22:00 Prednisone (Prednisone) 5 mg BID PO Last administered on 10/31/16 09:45; Admin Dose 5 MG; Start 09/29/16 at 21:00 Bisacodyl (Dulcolax Supp) 10 mg DAILY PRN [place] CONSTIPATION Last administered on 10/07/16 03:07; Admin Dose 10 MG; Start 10/07/16 at 03:00 Fidaxomicin (Dificid) 200 mg BID PO Last administered on 10/31/16 09:45; Admin Dose 200 MG; Start 10/17/16 at 10:30 Cholestyramine Resin 4 gm 4 gm BID PO Last administered on 10/31/16 09:46; Admin Dose 4 GM; Start 10/22/16 at 21:00 Filgrastim/ Dextrose (Neupogen/D5W) 51 ml @ 102 mls/hr DAILY@17 IVPB Last administered on 10/30/16 17:07; Admin Dose 102 MLS/HR; Start 10/25/16 at 17:00 Vancomycin HCl (Vancomycin Oral Syringe) 250 mg Q6 PO Last administered on 10/31 05:42; Admin Dose 250 MG; Start 10/25/16 at 18:00 Metronidazole (Flagyl) 500 mg Q8 PO Last administered on 10/31/16 05:40; Admin Dose 500 MG; Start 10/25/16 at 14:00 Fluconazole (Diflucan) 100 mg DAILY PO Last administered on 10/31/16 09:45; Admin Dose 100 MG; Start 10/26/16 at 16:00 Hydromorphone HCl (Dilaudid) 2.5 mg Q3H PRN IV PAIN Last administered on 20:23; Admin Dose 2.5 MG; Start 10/28/16 at 18:30 Dexamethasone (Decadron) 4 mg Q6H IV Last administered on 10/31/16 10:17; Admin Dose 4 MG; Start 10/29/16 at 03:45 Gentamicin Sulfate GENTAMICIN PER PHARM... NOTE XX ; Start 10/29/16 at 16:30; Stop 11/03/16 at 16:29 Dextrose/Sodium Chloride 1,000 ml @ 75 mls/hr [id number] IV Last administered on 10/30/16 21:34; Admin Dose 75 MLS/HR; Start 10/29/16 at 18:30 Gentamicin Sulfate 300 mg/ Sodium Chloride 107.5 ml @ 103.75 mls/ hr Q24H IVPB Last administered on 10/30/16 21:37; Admin Dose 103.75 MLS/HR; Start at 22:00; Stop 11/03/16 at 21:59 Pantoprazole/ Sodium Chloride (Protonix Iv/NS) 100 ml @ 10 mls/hr Q10H IV Last administered on 10/31/16 01:52; Admin Dose 10 MLS/HR; Start 10/30/16 at 16 :00 Methadone HCl (Methadone Liq) 3 mg Q6 PO Last administered on 10/31/16 05:40; Admin Dose 3 MG; Start 10/31/16 at 06:00 JORDAN NOVOA Oct 31, 2016 11:44
[2016-10-31 11:51] LABS: POTASSIUM 4.3 mmol/L (3.5-5.1)
[2016-10-31 11:53] LABS: CREATININE 0.28 mg/dl (0.61-1.24)
[2016-10-31 11:54] LABS: CALCIUM 7.1 mg/dl (8.4-10.2)
[2016-10-31] MEDS: DEXTROSE 5%-0.45% NACL 1,000 ML IV SCH ×2 (12:21→23:50)
[2016-10-31 13:04] LABS: LYMPHOCYTES # 0.5 10^3/ul (0.8-2.9); MONOCYTE # 0.1 10^3/ul (0.3-0.9); NEUTROPHIL # 1.9 10^3/ul (1.6-7.5); NUCLEATED RED BLOOD CELLS% 7.2 /100WBC (0.0-0.0)
[2016-10-31] MEDS ORDERED: PEG/ELECTROLYTES 4L BTL NGT ONE (14:30)
[2016-10-31] MEDS: HYDROmorphONE 2 MG/ML SYG IV PRN ×2 (15:20→22:44)
--- NOTE | 2016-10-31 16:54 | PN ---
DATE: 10/31/2016 SUBJECTIVE: No acute events overnight. No fevers. The patient is awake, lying comfortably in bed. Tolerates tube feeding. MICROBIOLOGY: Urine culture grew Proteus mirabilis, susceptible to cefotaxime, ampicillin, and tobr amycin, Bactrim, Gentamicin. INDWELLINGS: White, PICC line, NG tube. ANTIMICROBIALS: 1. The patient is on IV gentamicin. 2. Fluconazole. 3. Vancomycin. 4. Oral Flagyl. 5. Oral Questran. 6. Dificid. PHYSICAL EXAMINATION: GENERAL: This is a cachectic elderly man who is awake, in no distress. HEENT: Head atraumatic, normocephalic. Sclerae anicteric. Buccal mucosa dry. NECK: Supple, trachea midline. CHEST: Rise symmetrical. Breath sounds diminished to bases. HEART: S1, S2. ABDOMEN: Soft, bowel tones present. EXTREMITIES: No cyanosis or edema. ASSESSMENT: 1. Recurrent urinary tract infection. 2. Persistent and ongoing C. difficile colitis. 3. Metastatic prostate carcinoma. 4. Severe cachexia with severe decompensated state. 5. History of methicillin-resistant Staphylococcus aureus urinary tract infection. PLAN: The patient remains stable, covered with appropriate antimicrobials. He is being followed by multiple consultants. Continue present care. Dictated By: EUNICE GUNTER RN UROLOGY for PINO MULLINS/ADRIANA Conf#: [id number] DID#: [id number]
[2016-10-31] MEDS: FILGRASTIM 300 MCG in DEXTROSE 5% 50 ML IVPB SCH (17:52)
--- NOTE | 2016-10-31 18:02 | PN ---
DATE: 10/31/2016 SUBJECTIVE: The patient has metastatic prostate cancer and has an indwelling White catheter that is draining, that did drain bloody urine. The patient appears to be comfortable today. He, though, c omplains of pain. OBJECTIVE VITAL SIGNS: The temperature is 98.3. The pulse is 89, respiration 20, blood pressure 112/82. ABDOMEN: Soft. The White catheter is draining clear urine. EXTREMITIES: There is no hematuria today. LABORATORY DATA: CBC shows a white count of 3.7, hemoglobin 8.0, hematocrit 23.0. The platelet cou nt today is 52,000; yesterday it was 28,000 and that may be the reason for the bleeding. The BUN is 8, creatinine 0.28. IMPRESSION: Gross hematuria, most likely related to his low platelet count and also his urine cultu re showing 100,000 colonies per mL of Proteus mirabilis, and that also could be causing his hematuri a as well. The patient is on antibiotic and has been on gentamicin and fluconazole, vancomycin. PLAN: Continue the present treatment and the urine has already cleared. Dictated By: LINDSAY GUIDO/ADRIANA Conf#: [id number] DID#: [id number]
--- NOTE | 2016-10-31 18:22 | PN ---
Date/Time of Note Date/Time of Note DATE: 10/31/16 TIME: 18:18 Assessment/Plan VTE Prophylaxis VTE Prophylaxis Intervention: SCD's Lines/Catheters IV Catheter Type (from Nrsg): PICC Line Central line still needed: Yes Urinary Cath still in place: Yes Reason Cath still needed: urinary retention Assessment/Plan Chief Complaint/Hosp Course ASSESSMENT AND PLAN: 1. Clostridium difficile colitis. Contact isolation. Patient is followed by Dr. Schuler group from infectious disease standpoint. Patient is currently on Questran, Dificid, Vanco and Flagyl. 2. Metastatic prostate cancer. Dr. Hernandez is following patient in oncology consultation. Continue chemotherapy and steroids. 3. Thrombocytopenia. Continue to monitor platelets. 4. Acute on chronic back pain. Dr. Ferguson is following the patient in pain management. Continue methadone and Dilaudid p.r.n. for breakthrough pain. 5. Anemia, this post blood transfusion, continue to monitor hemoglobin and hematocrit. 6. MRSA UTI, status post treatment 7. Protein calorie malnutrition, continue Megace, continue high-protein and high-calorie diet, continue tube feeding via NG tube. 8. Hyponatremia, continue IV fluids. 9. Vocal cord paralysis. S/p eval by Dr Osman, ENT. Continue frequent suctioning. Continue tele monitoring. Dr Nichols had meeting with patient and familytoday , hospice eval is requested. Further recommendations based on clinical course. Plan of care discussed with Dr. Nichols. Problems: Exam/Review of Systems Vital Signs Vitals Vital Signs Date Time Temp Pulse Resp B/P Pulse Ox O2 Delivery O2 Flow Rate FiO2 10/31/16 16:57 97 10/31/16 15:42 98.4 20 126/86 100 10/31/16 13:35 5.0 28 10/31/16 07:55 Simple Mask Intake and Output 10/30/16 10/30/16 10/31/16 14:59 22:59 06:59 Intake Total 836 ml 90 ml Output Total 1100 ml 1100 ml Balance -264 ml -1010 ml Exam GENERAL: Well-developed, cachectic male, currently is awake, alert. HEENT: Head is atraumatic, normocephalic. PERRLA. NGT. NECK: Supple. No mass, no thyromegaly. LUNGS: Clear bilaterally. No rhonchi, wheezes, rales noted. HEART: Normal S1, S2. No murmurs, gallops, clicks, rubs noted. ABDOMEN: Flat, soft, nondistended, nontender. Bowel sounds present. EXTREMITIES: No edema. SKIN: There is no rash, petechiae noted. NEUROLOGIC: The patient is awake, alert, and oriented x3. Results Result Diagram: 10/31/16 1030 10/31/16 1030 Results 24 hrs Laboratory Tests Test 10/30/16 19:00 10/31/16 00:30 10/31/16 10:30 Hematocrit 28.0 L 26.3 L 23.0 L Hemoglobin 9.7 L 9.0 L 8.0 L Anion Gap 8 Basophils # Basophils % Blood Morphology Comment Blood Urea Nitrogen 8 Calcium Level 7.1 L Carbon Dioxide Level 28 Chloride Level 96 L Creatinine 0.28 L Eosinophils # Eosinophils % Glucose Level 144 Lymphocytes # 0.5 L Lymphocytes % 13.0 L Mean Corpuscular Hemoglobin 29.2 Mean Corpuscular Hemoglobin Concent 34.6 Mean Corpuscular Volume 84.6 Mean Platelet Volume 7.7 Monocytes # 0.1 L Monocytes % 3.0 Neutrophils # 1.9 Neutrophils % 50.0 Nucleated Red Blood Cells # Nucleated Red Blood Cells % 7.2 H Platelet Count 52 #L Potassium Level 4.3 Red Blood Count 2.72 L Red Cell Distribution Width 15.4 H Sodium Level 128 L White Blood Count 3.7 #L Medications Medications Current Medications Bicalutamide (Casodex) 50 mg QAM PO Last administered on 10/31/16 10:42; Admin Dose 50 MG; Start 09/07/16 at 09:00 Docusate Sodium (Colace) 100 mg BID PRN PO CONSTIPATION Last administered on 05:22; Admin Dose 100 MG; Start 09/07/16 at 00:00; Status Future Hold Escitalopram Oxalate (Lexapro) 5 mg DAILY PO Last administered on 10/31/16 09: 45; Admin Dose 5 MG; Start 09/07/16 at 09:00 Megestrol Acetate (Megace Susp) 400 mg BID PO Last administered on 10/31/16 09 :45; Admin Dose 400 MG; Start 09/07/16 at 09:00 Methylnaltrexone [place] (Relistor) 12 mg Q48H SC Last administered on 23:54; Admin Dose 12 MG; Start 09/07/16 at 00:00; Status Future Hold Ondansetron HCl (Zofran Tab) 4 mg Q6H PRN PO NAUSEA AND/OR VOMITING Last administered on 10/19/16 18:17; Admin Dose 4 MG; Start 09/07/16 at 00:00 Acetaminophen (Tylenol Tab) 500 mg Q4H PRN PO PAIN AND OR ELEVATED TEMP Last administered on 10/05/16 15:37; Admin Dose 500 MG; Start 09/07/16 at 21:30 IV Flush (NS 10 ml) 10 ml PRN PRN IV IV PROTOCOL; Start 09/11/16 at 10:00 Calcium/Vitamin D (Oyster Shell/ Vit-D (500/200)) 1 tab BID PO Last administered on 10/31/16 09:46; Admin Dose 1 TAB; Start 09/12/16 at 14:00 IV Flush 10 ml 10 ml PRN PRN IV IV PROTOCOL; Start 09/21/16 at 12:00 Ondansetron HCl/ Sodium Chloride (Zofran Inj/NS) 54 ml @ 216 mls/hr Q12H PRN IV NAUSEA AND/OR VOMITING; Start 09/29/16 at 22:00 Prednisone (Prednisone) 5 mg BID PO Last administered on 10/31/16 09:45; Admin Dose 5 MG; Start 09/29/16 at 21:00 Bisacodyl (Dulcolax Supp) 10 mg DAILY PRN [place] CONSTIPATION Last administered on 10/07/16 03:07; Admin Dose 10 MG; Start 10/07/16 at 03:00 Fidaxomicin (Dificid) 200 mg BID PO Last administered on 10/31/16 09:45; Admin Dose 200 MG; Start 10/17/16 at 10:30 Cholestyramine Resin 4 gm 4 gm BID PO Last administered on 10/31/16 09:46; Admin Dose 4 GM; Start 10/22/16 at 21:00 Filgrastim/ Dextrose (Neupogen/D5W) 51 ml @ 102 mls/hr DAILY@17 IVPB Last administered on 10/31/16 17:52; Admin Dose 102 MLS/HR; Start 10/25/16 at 17:00 Vancomycin HCl (Vancomycin Oral Syringe) 250 mg Q6 PO Last administered on 10/31 17:53; Admin Dose 250 MG; Start 10/25/16 at 18:00 Metronidazole (Flagyl) 500 mg Q8 PO Last administered on 10/31/16 14:38; Admin Dose 500 MG; Start 10/25/16 at 14:00 Fluconazole (Diflucan) 100 mg DAILY PO Last administered on 10/31/16 09:45; Admin Dose 100 MG; Start 10/26/16 at 16:00 Hydromorphone HCl (Dilaudid) 2.5 mg Q3H PRN IV PAIN Last administered on 15:20; Admin Dose 2.5 MG; Start 10/28/16 at 18:30 Dexamethasone (Decadron) 4 mg Q6H IV Last administered on 10/31/16 16:19; Admin Dose 4 MG; Start 10/29/16 at 03:45 Gentamicin Sulfate GENTAMICIN PER PHARM... NOTE XX ; Start 10/29/16 at 16:30; Stop 11/03/16 at 16:29 Dextrose/Sodium Chloride 1,000 ml @ 75 mls/hr [id number] IV Last administered on 10/31/16 12:21; Admin Dose 75 MLS/HR; Start 10/29/16 at 18:30 Gentamicin Sulfate 300 mg/ Sodium Chloride 107.5 ml @ 103.75 mls/ hr Q24H IVPB Last administered on 10/30/16 21:37; Admin Dose 103.75 MLS/HR; Start at 22:00; Stop 11/03/16 at 21:59 Pantoprazole/ Sodium Chloride (Protonix Iv/NS) 100 ml @ 10 mls/hr Q10H IV Last administered on 10/31/16 12:24; Admin Dose 10 MLS/HR; Start 10/30/16 at 16 :00 Methadone HCl (Methadone Liq) 3 mg Q6 PO Last administered on 10/31/16 17:53; Admin Dose 3 MG; Start 10/31/16 at 06:00 SREE GRIFFITH Oct 31, 2016 18:22
[2016-10-31 19:30] LABS: HEMATOCRIT 24.4 % (42.0-52.0); HEMOGLOBIN 8.5 g/dl (14.0-18.0)
--- NOTE | 2016-10-31 19:32 | CONS ---
Date/Time of Note Date/Time of Note DATE: 10/31/16 TIME: 19:30 Assessment/Plan Assessment/Plan Additional Assessment/Plan Additional Assessment/Plan 1. Clostridium difficile colitis. 2. Abdominal pain: worsening, associated with nausea and vomiting. ddx include C. Diff colitis vs side effects from chemotherapy vs gastritis, duodenitis, esophagitis. 3. anemia 4. Metastatic prostate cancer. Dr. Hernandez is following patient in oncology consultation. Continue chemotherapy and steroids. 5. MRSA 6. Abnormal alkaline po4 secondary to jose mets. 7.diarrhea secondary to C.Difficile,better 8.neutropenia,on Neupogen,better 9.Rectal bleeding, r/o radiation proctitis,diverticulosis,aggravated by thrombocytopenia Recommendations: 1. Continue vancomycin for C. Diff. Consider fidaxomicin per ID. 3. continue pain control 4. ordered occult stool blood negative 7. continue other supportive care per pcp and other consultants 8.platelete transfusion,keep platelete count above 50,000 8.Questran,increase dose 9,enteral feeding,clinically looks better 10 keep platelets count above 50,000 Consultation Date/Type/Reason Admit Date/Time Sep 06, 2016 at 22:01 Initial Consult Date 09/08/16 Type of Consultation: Pulmonary Referring Provider: TIMOTHY MARAVILLA MD 24 HR Interval Summary Free Text/Dictation rectal bleeding Exam/Review of Systems Vital Signs Vitals Vital Signs Date Time Temp Pulse Resp B/P Pulse Ox O2 Delivery O2 Flow Rate FiO2 10/31/16 16:57 97 10/31/16 15:42 98.4 20 126/86 100 10/31/16 13:35 5.0 28 10/31/16 07:55 Simple Mask Intake and Output 10/30/16 10/30/16 10/31/16 15:00 23:00 07:00 Intake Total 836 ml 90 ml Output Total 1100 ml 1100 ml Balance -264 ml -1010 ml Results Result Diagram: 10/31/16 1030 10/31/16 1030 Results 24 hrs Laboratory Tests Test 10/31/16 00:30 10/31/16 10:30 Hematocrit 26.3 L 23.0 L Hemoglobin 9.0 L 8.0 L Anion Gap 8 Basophils # Basophils % Blood Morphology Comment Blood Urea Nitrogen 8 Calcium Level 7.1 L Carbon Dioxide Level 28 Chloride Level 96 L Creatinine 0.28 L Eosinophils # Eosinophils % Glucose Level 144 Lymphocytes # 0.5 L Lymphocytes % 13.0 L Mean Corpuscular Hemoglobin 29.2 Mean Corpuscular Hemoglobin Concent 34.6 Mean Corpuscular Volume 84.6 Mean Platelet Volume 7.7 Monocytes # 0.1 L Monocytes % 3.0 Neutrophils # 1.9 Neutrophils % 50.0 Nucleated Red Blood Cells # Nucleated Red Blood Cells % 7.2 H Platelet Count 52 #L Potassium Level 4.3 Red Blood Count 2.72 L Red Cell Distribution Width 15.4 H Sodium Level 128 L White Blood Count 3.7 #L Medications Medications Current Medications Bicalutamide (Casodex) 50 mg QAM PO Last administered on 10/31/16 10:42; Admin Dose 50 MG; Start 09/07/16 at 09:00 Docusate Sodium (Colace) 100 mg BID PRN PO CONSTIPATION Last administered on 05:22; Admin Dose 100 MG; Start 09/07/16 at 00:00; Status Future Hold Escitalopram Oxalate (Lexapro) 5 mg DAILY PO Last administered on 10/31/16 09: 45; Admin Dose 5 MG; Start 09/07/16 at 09:00 Megestrol Acetate (Megace Susp) 400 mg BID PO Last administered on 10/31/16 09 :45; Admin Dose 400 MG; Start 09/07/16 at 09:00 Methylnaltrexone [place] (Relistor) 12 mg Q48H SC Last administered on 23:54; Admin Dose 12 MG; Start 09/07/16 at 00:00; Status Future Hold Ondansetron HCl (Zofran Tab) 4 mg Q6H PRN PO NAUSEA AND/OR VOMITING Last administered on 10/19/16 18:17; Admin Dose 4 MG; Start 09/07/16 at 00:00 Acetaminophen (Tylenol Tab) 500 mg Q4H PRN PO PAIN AND OR ELEVATED TEMP Last administered on 10/05/16 15:37; Admin Dose 500 MG; Start 09/07/16 at 21:30 IV Flush (NS 10 ml) 10 ml PRN PRN IV IV PROTOCOL; Start 09/11/16 at 10:00 Calcium/Vitamin D (Oyster Shell/ Vit-D (500/200)) 1 tab BID PO Last administered on 10/31/16 09:46; Admin Dose 1 TAB; Start 09/12/16 at 14:00 IV Flush 10 ml 10 ml PRN PRN IV IV PROTOCOL; Start 09/21/16 at 12:00 Ondansetron HCl/ Sodium Chloride (Zofran Inj/NS) 54 ml @ 216 mls/hr Q12H PRN IV NAUSEA AND/OR VOMITING; Start 09/29/16 at 22:00 Prednisone (Prednisone) 5 mg BID PO Last administered on 10/31/16 09:45; Admin Dose 5 MG; Start 09/29/16 at 21:00 Bisacodyl (Dulcolax Supp) 10 mg DAILY PRN [place] CONSTIPATION Last administered on 10/07/16 03:07; Admin Dose 10 MG; Start 10/07/16 at 03:00 Fidaxomicin (Dificid) 200 mg BID PO Last administered on 10/31/16 09:45; Admin Dose 200 MG; Start 10/17/16 at 10:30 Cholestyramine Resin 4 gm 4 gm BID PO Last administered on 10/31/16 09:46; Admin Dose 4 GM; Start 10/22/16 at 21:00 Filgrastim/ Dextrose (Neupogen/D5W) 51 ml @ 102 mls/hr DAILY@17 IVPB Last administered on 10/31/16 17:52; Admin Dose 102 MLS/HR; Start 10/25/16 at 17:00 Vancomycin HCl (Vancomycin Oral Syringe) 250 mg Q6 PO Last administered on 10/31 17:53; Admin Dose 250 MG; Start 10/25/16 at 18:00 Metronidazole (Flagyl) 500 mg Q8 PO Last administered on 10/31/16 14:38; Admin Dose 500 MG; Start 10/25/16 at 14:00 Fluconazole (Diflucan) 100 mg DAILY PO Last administered on 10/31/16 09:45; Admin Dose 100 MG; Start 10/26/16 at 16:00 Hydromorphone HCl (Dilaudid) 2.5 mg Q3H PRN IV PAIN Last administered on 15:20; Admin Dose 2.5 MG; Start 10/28/16 at 18:30 Dexamethasone (Decadron) 4 mg Q6H IV Last administered on 10/31/16 16:19; Admin Dose 4 MG; Start 10/29/16 at 03:45 Gentamicin Sulfate GENTAMICIN PER PHARM... NOTE XX ; Start 10/29/16 at 16:30; Stop 11/03/16 at 16:29 Dextrose/Sodium Chloride 1,000 ml @ 75 mls/hr [id number] IV Last administered on 10/31/16 12:21; Admin Dose 75 MLS/HR; Start 10/29/16 at 18:30 Gentamicin Sulfate 300 mg/ Sodium Chloride 107.5 ml @ 103.75 mls/ hr Q24H IVPB Last administered on 10/30/16 21:37; Admin Dose 103.75 MLS/HR; Start at 22:00; Stop 11/03/16 at 21:59 Pantoprazole/ Sodium Chloride (Protonix Iv/NS) 100 ml @ 10 mls/hr Q10H IV Last administered on 10/31/16 12:24; Admin Dose 10 MLS/HR; Start 10/30/16 at 16 :00 Methadone HCl (Methadone Liq) 3 mg Q6 PO Last administered on 10/31/16 17:53; Admin Dose 3 MG; Start 10/31/16 at 06:00 MICHAEL COELHO MD Oct 31, 2016 19:31
--- NOTE | 2016-10-31 20:13 | PN ---
DATE: 10/31/2016 ADDENDUM I had a family conference with patient and his sister regarding goals of care and further treatment options. The patient's family has decided for comfort care only. They do not want further diagnost ic or therapeutic interventions as the patient has continued to decline, and they do not want trache ostomy or any other artificial modes of feeding. The family conference was attended by patricia Resendiz nurse on [address] [place] [address], who also interpreted for me as patient and the family are mainly Span[place] h speaking. Dictated By: TIMOTHY LEWIS/ADRIANA Conf#: [id number] DID#: [id number]
[2016-10-31] MEDS: GENTAMICIN 300 MG in SOD CHLORIDE 0.9% 100 ML IVPB SCH (22:14)
[2016-11-01] VITALS (11 sets, daily range): BP systolic 103–134; BP diastolic 67–91; PULSE 97–110; RESP 18–20
[2016-11-01] MEDS: VANCOMYCIN HCL 250 MG/5ML POSYG PO SCH ×4 (00:08→18:00)
[2016-11-01] MEDS: METHADONE (1 MG/ML 5 ML PO UD SYG) PO SCH ×5 (00:12→23:27)
[2016-11-01 01:16] LABS: HEMATOCRIT 22.9 % (42.0-52.0); HEMOGLOBIN 7.9 g/dl (14.0-18.0)
[2016-11-01] MEDS: RACEPINEPHRINE 2.25%(NEB) 0.5 ML AMP HHN PRN (02:55)
[2016-11-01] MEDS: DEXAMETHASONE 4 MG/ML 1 ML INJ IV SCH ×4 (03:14→21:27)
[2016-11-01] MEDS: DEXTROSE 5%-0.45% NACL 1,000 ML IV SCH ×3 (03:15→18:39)
[2016-11-01] MEDS: HYDROmorphONE 2 MG/ML SYG IV PRN ×2 (03:37→15:36)
[2016-11-01] MEDS: metroNIDAZOLE 500 MG TAB PO SCH ×3 (05:48→21:27)
[2016-11-01 07:32] LABS: HEMATOCRIT 21.6 % (42.0-52.0); HEMOGLOBIN 7.5 g/dl (14.0-18.0); MEAN CORPUSCULAR HEMOGLOBIN 29.1 pg (29.0-33.0); MEAN CORPUSCULAR HGB CONC 34.8 g/dl (32.0-37.0); MEAN CORPUSCULAR VOLUME 83.8 fl (82.0-101.0); MEAN PLATELET VOLUME 8.2 fl (7.4-10.4); PLATELET COUNT 34 10^3/UL (140-440); RED BLOOD COUNT 2.58 10^6/ul (4.70-6.10); RED CELL DISTRIBUTION WIDTH 15.9 % (11.5-14.5); UNCORRECTED WBC 2.3 10^3/ul (4.8-10.8); WHITE BLOOD COUNT 2.3 10^3/ul (4.8-10.8)
[2016-11-01 07:57] LABS: CONDITION 1; LH ANALYZER COMMENTS 1; SUSPECT 1
[2016-11-01 09:25] LABS: LYMPHOCYTES # 0.1 10^3/ul (0.8-2.9); MONOCYTE # 0.1 10^3/ul (0.3-0.9); NEUTROPHIL # 1.7 10^3/ul (1.6-7.5)
[2016-11-01 09:26] LABS: ANISOCYTOSIS 1+; PLATELET ESTIMATE PLT APPEAR DECREASED
[2016-11-01] MEDS: ESCITALOPRAM 10 MG TAB PO SCH (09:27)
[2016-11-01] MEDS: MEGESTROL (40 MG/ML) 10ML CUP PO SCH ×2 (09:27→21:27)
[2016-11-01] MEDS: CHOLESTYRAMINE (LIGHT) 4 GM PACKET PO SCH ×2 (09:27→21:27)
[2016-11-01] MEDS: PANTOPRAZOLE IV 80 MG in SOD CHLORIDE 0.9% 100 ML IV SCH ×2 (09:27→18:00)
[2016-11-01] MEDS: FIDAXOMICIN 200 MG TABLET PO SCH ×2 (09:27→21:27)
[2016-11-01] MEDS: CALCIUM/VITAMIN D (500/200) TAB PO SCH ×2 (09:28→21:27)
[2016-11-01] MEDS: predniSONE 5 MG TAB PO SCH ×2 (09:28→21:27)
[2016-11-01] MEDS: FLUCONAZOLE 100 MG TAB PO SCH (09:29)
[2016-11-01] MEDS: BICALUTAMIDE 50 MG TAB PO SCH (09:44)
--- NOTE | 2016-11-01 10:03 | PN ---
DATE: 11/01/2016 SUBJECTIVE: This patient did have some hematuria. He is known to have metastatic prostate cancer a nd had an indwelling White catheter that was draining blood a few days back. Presently, patient is comfortable and resting. OBJECTIVE: VITAL SIGNS: His temperature is 98.4, blood pressure 110/67. The pulse is 110. Respirations are 2 0. ABDOMEN: The White catheter is draining clear urine. There is no more hematuria. LABORATORIES: The urine culture is showing Proteus mirabilis that is sensitive to Bactrim, tobramyc in and gentamicin and cefotaxime and ampicillin. PLAN: Continue him with the White catheter and he is already on gentamicin. Dictated By: LINDSAY GUIDO/ADRIANA Conf#: [id number] DID#: [id number]
--- NOTE | 2016-11-01 10:06 | CONS ---
Date/Time of Note Date/Time of Note DATE: 11/01/16 TIME: 10:05 Assessment/Plan Assessment/Plan Additional Assessment/Plan Additional Assessment/Plan 1. Clostridium difficile colitis. 2. Abdominal pain: worsening, associated with nausea and vomiting. ddx include C. Diff colitis vs side effects from chemotherapy vs gastritis, duodenitis, esophagitis. 3. anemia 4. Metastatic prostate cancer. Dr. Hernandez is following patient in oncology consultation. Continue chemotherapy and steroids. 5. MRSA 6. Abnormal alkaline po4 secondary to jose mets. 7.diarrhea secondary to C.Difficile,better 8.neutropenia,on Neupogen,better 9.Rectal bleeding, r/o radiation proctitis,diverticulosis,aggravated by thrombocytopenia Recommendations: 1. Continue vancomycin for C. Diff. Consider fidaxomicin per ID. 3. continue pain control 4. ordered occult stool blood negative 7. continue other supportive care per pcp and other consultants 8.platelete transfusion,keep platelete count above 50,000 8.Questran,increase dose 9,enteral feeding,clinically looks better 10 keep platelets count above 50,000 11. family decided only comfort measure,no further intervention Consultation Date/Type/Reason Admit Date/Time Sep 06, 2016 at 22:01 Initial Consult Date 09/08/16 Type of Consultation: Pulmonary Referring Provider: TIMOTHY MARAVILLA MD 24 HR Interval Summary Subjective hx not possible: pt critical Exam/Review of Systems Vital Signs Vitals Vital Signs Date Time Temp Pulse Resp B/P Pulse Ox O2 Delivery O2 Flow Rate FiO2 11/01/16 09:01 97 11/01/16 07:45 98.4 20 110/67 100 11/01/16 02:55 Aerosol 5.0 28 Aerosol Mask Intake and Output 10/31/16 10/31/16 11/01/16 15:00 23:00 07:00 Intake Total 425 ml 650 ml 1275.5 ml Output Total 1400 ml 1000 ml Balance 425 ml -750 ml 275.5 ml Exam Constitutional: alert, oriented, well developed Psych: nl mood/affect, no complaints Head: atraumatic, normocephalic Eyes: EOMI, PERRL, nl conjunctiva, nl lids, nl sclera ENMT: nl external ears & nose, nl lips & teeth, nl nasal mucosa & septum Neck: non-tender, supple Respiratory: clear to auscultation, normal air movement Cardiovascular: nl pulses, regular rate and rhythm Gastrointestinal: nl liver, spleen, non-tender, soft Musculoskeletal: nl extremities to inspection, nl gait and stance Extremities: normal pulses 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: SATURATION DIVER II-XII intact, nl mental status, nl speech, nl strength Skin: nl turgor, No rash or lesions Lymph: nl lymph nodes Results Result Diagram: 11/01/16 0600 10/31/16 1030 Results 24 hrs Laboratory Tests Test 10/31/16 10:30 10/31/16 18:45 11/01/16 01:00 11/01/16 06:00 Anion Gap 8 Basophils # Basophils % Blood Morphology Comment Blood Urea Nitrogen 8 Calcium Level 7.1 L Carbon Dioxide Level 28 Chloride Level 96 L Creatinine 0.28 L Eosinophils # Eosinophils % Glucose Level 144 Hematocrit 23.0 L 24.4 L 22.9 L 21.6 L Hemoglobin 8.0 L 8.5 L 7.9 L 7.5 L Lymphocytes # 0.5 L 0.1 L Lymphocytes % 13.0 L 6.0 L Mean Corpuscular Hemoglobin 29.2 29.1 Mean Corpuscular Hemoglobin Concent 34.6 34.8 Mean Corpuscular Volume 84.6 83.8 Mean Platelet Volume 7.7 8.2 Monocytes # 0.1 L 0.1 L Monocytes % 3.0 5.0 Neutrophils # 1.9 1.7 Neutrophils % 50.0 76.0 Nucleated Red Blood Cells # Nucleated Red Blood Cells % 7.2 H 1.0 H Platelet Count 52 #L 34 #L Potassium Level 4.3 Red Blood Count 2.72 L 2.58 L Red Cell Distribution Width 15.4 H 15.9 H Sodium Level 128 L White Blood Count 3.7 #L 2.3 #L Anisocytosis 1+ Band Neutrophils % 9.0 H Differential Comment MANUAL DIFF Metamyelocytes # 0.1 Metamyelocytes % 4.0 H Platelet Estimate PLT APPEAR DECREASED Medications Medications Current Medications Bicalutamide (Casodex) 50 mg QAM PO Last administered on 11/01/16 09:44; Admin Dose 50 MG; Start 09/07/16 at 09:00 Docusate Sodium (Colace) 100 mg BID PRN PO CONSTIPATION Last administered on 05:22; Admin Dose 100 MG; Start 09/07/16 at 00:00; Status Future Hold Escitalopram Oxalate (Lexapro) 5 mg DAILY PO Last administered on 11/01/16 09: 27; Admin Dose 5 MG; Start 09/07/16 at 09:00 Megestrol Acetate (Megace Susp) 400 mg BID PO Last administered on 11/01/16 09 :27; Admin Dose 400 MG; Start 09/07/16 at 09:00 Methylnaltrexone [place] (Relistor) 12 mg Q48H SC Last administered on 23:54; Admin Dose 12 MG; Start 09/07/16 at 00:00; Status Future Hold Ondansetron HCl (Zofran Tab) 4 mg Q6H PRN PO NAUSEA AND/OR VOMITING Last administered on 10/19/16 18:17; Admin Dose 4 MG; Start 09/07/16 at 00:00 Acetaminophen (Tylenol Tab) 500 mg Q4H PRN PO PAIN AND OR ELEVATED TEMP Last administered on 10/05/16 15:37; Admin Dose 500 MG; Start 09/07/16 at 21:30 IV Flush (NS 10 ml) 10 ml PRN PRN IV IV PROTOCOL; Start 09/11/16 at 10:00 Calcium/Vitamin D (Oyster Shell/ Vit-D (500/200)) 1 tab BID PO Last administered on 11/01/16 09:28; Admin Dose 1 TAB; Start 09/12/16 at 14:00 IV Flush 10 ml 10 ml PRN PRN IV IV PROTOCOL; Start 09/21/16 at 12:00 Ondansetron HCl/ Sodium Chloride (Zofran Inj/NS) 54 ml @ 216 mls/hr Q12H PRN IV NAUSEA AND/OR VOMITING; Start 09/29/16 at 22:00 Prednisone (Prednisone) 5 mg BID PO Last administered on 11/01/16 09:28; Admin Dose 5 MG; Start 09/29/16 at 21:00 Bisacodyl (Dulcolax Supp) 10 mg DAILY PRN [place] CONSTIPATION Last administered on 10/07/16 03:07; Admin Dose 10 MG; Start 10/07/16 at 03:00 Fidaxomicin (Dificid) 200 mg BID PO Last administered on 11/01/16 09:27; Admin Dose 200 MG; Start 10/17/16 at 10:30 Cholestyramine Resin 4 gm 4 gm BID PO Last administered on 11/01/16 09:27; Admin Dose 4 GM; Start 10/22/16 at 21:00 Filgrastim/ Dextrose (Neupogen/D5W) 51 ml @ 102 mls/hr DAILY@17 IVPB Last administered on 10/31/16 17:52; Admin Dose 102 MLS/HR; Start 10/25/16 at 17:00 Vancomycin HCl (Vancomycin Oral Syringe) 250 mg Q6 PO Last administered on 11/01 05:47; Admin Dose 250 MG; Start 10/25/16 at 18:00 Metronidazole (Flagyl) 500 mg Q8 PO Last administered on 11/01/16 05:48; Admin Dose 500 MG; Start 10/25/16 at 14:00 Fluconazole (Diflucan) 100 mg DAILY PO Last administered on 11/01/16 09:29; Admin Dose 100 MG; Start 10/26/16 at 16:00 Hydromorphone HCl (Dilaudid) 2.5 mg Q3H PRN IV PAIN Last administered on 03:37; Admin Dose 2.5 MG; Start 10/28/16 at 18:30 Dexamethasone (Decadron) 4 mg Q6H IV Last administered on 11/01/16 09:29; Admin Dose 4 MG; Start 10/29/16 at 03:45 Gentamicin Sulfate GENTAMICIN PER PHARM... NOTE XX ; Start 10/29/16 at 16:30; Stop 11/03/16 at 16:29 Dextrose/Sodium Chloride 1,000 ml @ 75 mls/hr [id number] IV Last administered on 11/01/16 03:15; Admin Dose 75 MLS/HR; Start 10/29/16 at 18:30 Gentamicin Sulfate 300 mg/ Sodium Chloride 107.5 ml @ 103.75 mls/ hr Q24H IVPB Last administered on 10/31/16 22:14; Admin Dose 103.75 MLS/HR; Start at 22:00; Stop 11/03/16 at 21:59 Pantoprazole/ Sodium Chloride (Protonix Iv/NS) 100 ml @ 10 mls/hr Q10H IV Last administered on 11/01/16 09:27; Admin Dose 10 MLS/HR; Start 10/30/16 at 16 :00 Methadone HCl (Methadone Liq) 3 mg Q6 PO Last administered on 11/01/16 05:48; Admin Dose 3 MG; Start 10/31/16 at 06:00 MICHAEL COELHO MD Nov 01, 2016 10:06
--- NOTE | 2016-11-01 12:01 | CONS ---
Date/Time of Note Date/Time of Note DATE: 11/01/16 TIME: 11:57 Assessment/Plan Assessment/Plan Additional Assessment/Plan Assessment and recommendations; 1. Patient admitted with a history of advanced prostate cancer. 2. C. difficile colitis. 3. GI bleed. 4. Pancytopenia. 5. Stridor. With interval improvement. 6. Very poor overall condition. With severe emaciation. Continue current treatment prognosis is poor. Consultation Date/Type/Reason Admit Date/Time Sep 06, 2016 at 22:01 Initial Consult Date 10/29/16 Type of Consultation: Pulmonary Referring Provider: TIMOTHY MARAVILLA MD 24 HR Interval Summary Free Text/Dictation Patient condition remains tenuous at best. Still requiring high flow FiO2 for O2 saturation maintenance. Patient also exhibiting very poor mental status. However has remained hemodynamically stable. General examination; elderly male currently in no distress semi-responsive. Exam/Review of Systems Vital Signs Vitals Vital Signs Date Time Temp Pulse Resp B/P Pulse Ox O2 Delivery O2 Flow Rate FiO2 11/01/16 09:01 97 11/01/16 07:45 98.4 20 110/67 100 11/01/16 02:55 Aerosol 5.0 28 Aerosol Mask Intake and Output 10/31/16 10/31/16 11/01/16 15:00 23:00 07:00 Intake Total 425 ml 650 ml 1275.5 ml Output Total 1400 ml 1000 ml Balance 425 ml -750 ml 275.5 ml Exam HEENT examination; supple neck, no JVD. No lymphadenopathy. Pupils are midsize and reactive to light bilaterally. No thyromegaly. There is very mild stridor heard over the tracheal area. Chest examination; diminished but clear breath sounds bilaterally. S1-S2 audible, no murmurs. Regular rhythm. Abdomen examination; scaphoid, no organomegaly. Bowel sounds audible. Extremity examination; no peripheral edema. There is severe muscle loss involving the entire body. 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 Results Result Diagram: 11/01/16 0600 10/31/16 1030 Results 24 hrs Laboratory Tests Test 10/31/16 18:45 11/01/16 01:00 11/01/16 06:00 Hematocrit 24.4 L 22.9 L 21.6 L Hemoglobin 8.5 L 7.9 L 7.5 L Anisocytosis 1+ Band Neutrophils % 9.0 H Basophils # Basophils % Blood Morphology Comment Differential Comment MANUAL DIFF Eosinophils # Eosinophils % Lymphocytes # 0.1 L Lymphocytes % 6.0 L Mean Corpuscular Hemoglobin 29.1 Mean Corpuscular Hemoglobin Concent 34.8 Mean Corpuscular Volume 83.8 Mean Platelet Volume 8.2 Metamyelocytes # 0.1 Metamyelocytes % 4.0 H Monocytes # 0.1 L Monocytes % 5.0 Neutrophils # 1.7 Neutrophils % 76.0 Nucleated Red Blood Cells # Nucleated Red Blood Cells % 1.0 H Platelet Count 34 #L Platelet Estimate PLT APPEAR DECREASED Red Blood Count 2.58 L Red Cell Distribution Width 15.9 H White Blood Count 2.3 #L Medications Medications Current Medications Bicalutamide (Casodex) 50 mg QAM PO Last administered on 11/01/16 09:44; Admin Dose 50 MG; Start 09/07/16 at 09:00 Docusate Sodium (Colace) 100 mg BID PRN PO CONSTIPATION Last administered on 05:22; Admin Dose 100 MG; Start 09/07/16 at 00:00; Status Future Hold Escitalopram Oxalate (Lexapro) 5 mg DAILY PO Last administered on 11/01/16 09: 27; Admin Dose 5 MG; Start 09/07/16 at 09:00 Megestrol Acetate (Megace Susp) 400 mg BID PO Last administered on 11/01/16 09 :27; Admin Dose 400 MG; Start 09/07/16 at 09:00 Methylnaltrexone [place] (Relistor) 12 mg Q48H SC Last administered on 23:54; Admin Dose 12 MG; Start 09/07/16 at 00:00; Status Future Hold Ondansetron HCl (Zofran Tab) 4 mg Q6H PRN PO NAUSEA AND/OR VOMITING Last administered on 10/19/16 18:17; Admin Dose 4 MG; Start 09/07/16 at 00:00 Acetaminophen (Tylenol Tab) 500 mg Q4H PRN PO PAIN AND OR ELEVATED TEMP Last administered on 10/05/16 15:37; Admin Dose 500 MG; Start 09/07/16 at 21:30 IV Flush (NS 10 ml) 10 ml PRN PRN IV IV PROTOCOL; Start 09/11/16 at 10:00 Calcium/Vitamin D (Oyster Shell/ Vit-D (500/200)) 1 tab BID PO Last administered on 11/01/16 09:28; Admin Dose 1 TAB; Start 09/12/16 at 14:00 IV Flush 10 ml 10 ml PRN PRN IV IV PROTOCOL; Start 09/21/16 at 12:00 Ondansetron HCl/ Sodium Chloride (Zofran Inj/NS) 54 ml @ 216 mls/hr Q12H PRN IV NAUSEA AND/OR VOMITING; Start 09/29/16 at 22:00 Prednisone (Prednisone) 5 mg BID PO Last administered on 11/01/16 09:28; Admin Dose 5 MG; Start 09/29/16 at 21:00 Bisacodyl (Dulcolax Supp) 10 mg DAILY PRN [place] CONSTIPATION Last administered on 10/07/16 03:07; Admin Dose 10 MG; Start 10/07/16 at 03:00 Fidaxomicin (Dificid) 200 mg BID PO Last administered on 11/01/16 09:27; Admin Dose 200 MG; Start 10/17/16 at 10:30 Cholestyramine Resin 4 gm 4 gm BID PO Last administered on 11/01/16 09:27; Admin Dose 4 GM; Start 10/22/16 at 21:00 Filgrastim/ Dextrose (Neupogen/D5W) 51 ml @ 102 mls/hr DAILY@17 IVPB Last administered on 10/31/16 17:52; Admin Dose 102 MLS/HR; Start 10/25/16 at 17:00 Vancomycin HCl (Vancomycin Oral Syringe) 250 mg Q6 PO Last administered on 11/01 05:47; Admin Dose 250 MG; Start 10/25/16 at 18:00 Metronidazole (Flagyl) 500 mg Q8 PO Last administered on 11/01/16 05:48; Admin Dose 500 MG; Start 10/25/16 at 14:00 Fluconazole (Diflucan) 100 mg DAILY PO Last administered on 11/01/16 09:29; Admin Dose 100 MG; Start 10/26/16 at 16:00 Hydromorphone HCl (Dilaudid) 2.5 mg Q3H PRN IV PAIN Last administered on 03:37; Admin Dose 2.5 MG; Start 10/28/16 at 18:30 Dexamethasone (Decadron) 4 mg Q6H IV Last administered on 11/01/16 09:29; Admin Dose 4 MG; Start 10/29/16 at 03:45 Gentamicin Sulfate GENTAMICIN PER PHARM... NOTE XX ; Start 10/29/16 at 16:30; Stop 11/03/16 at 16:29 Dextrose/Sodium Chloride 1,000 ml @ 75 mls/hr [id number] IV Last administered on 11/01/16 03:15; Admin Dose 75 MLS/HR; Start 10/29/16 at 18:30 Gentamicin Sulfate 300 mg/ Sodium Chloride 107.5 ml @ 103.75 mls/ hr Q24H IVPB Last administered on 10/31/16 22:14; Admin Dose 103.75 MLS/HR; Start at 22:00; Stop 11/03/16 at 21:59 Pantoprazole/ Sodium Chloride (Protonix Iv/NS) 100 ml @ 10 mls/hr Q10H IV Last administered on 11/01/16 09:27; Admin Dose 10 MLS/HR; Start 10/30/16 at 16 :00 Methadone HCl (Methadone Liq) 3 mg Q6 PO Last administered on 11/01/16 05:48; Admin Dose 3 MG; Start 10/31/16 at 06:00 JORDAN NOVOA Nov 01, 2016 12:00
--- NOTE | 2016-11-01 12:40 | CONS ---
Date/Time of Note Date/Time of Note DATE: 11/01/16 TIME: 12:39 Assessment/Plan Assessment/Plan Chief Complaint/Hosp Course SUBJECTIVE: No acute events overnight. No fevers. The patient is lying comfortably in bed. Tolerates tube feeding. MICROBIOLOGY: Urine culture grew Proteus mirabilis, susceptible to cefotaxime, ampicillin, and tobramycin, Bactrim, Gentamicin. INDWELLINGS: White, PICC line, NG tube. ANTIMICROBIALS: 1. Gentamicin. 2. Fluconazole. 3. Vancomycin. 4. Oral Flagyl. 5. Oral Questran. 6. Dificid. PHYSICAL EXAMINATION: GENERAL: This is a cachectic elderly man who is awake, in no distress. HEENT: Head atraumatic, normocephalic. Sclerae anicteric. Buccal mucosa dry. NECK: Supple, trachea midline. CHEST: Rise symmetrical. Breath sounds diminished to bases. HEART: S1, S2. ABDOMEN: Soft, bowel tones present. EXTREMITIES: No cyanosis or edema. ASSESSMENT: 1. Recurrent urinary tract infection. 2. Persistent and ongoing C. difficile colitis. 3. Metastatic prostate carcinoma. 4. Severe cachexia with severe decompensated state. 5. History of methicillin-resistant Staphylococcus aureus urinary tract infection. PLAN: The patient remains stable, covered with appropriate antimicrobials. He is being followed by multiple consultants. Continue present care. NATALIYA rec-s [facility] staff Problems: Consultation Date/Type/Reason Admit Date/Time Sep 06, 2016 at 22:01 Initial Consult Date 09/08/16 Type of Consultation: ID Referring Provider: TIMOTHY MARAVILLA MD Exam/Review of Systems Vital Signs Vitals Vital Signs Date Time Temp Pulse Resp B/P Pulse Ox O2 Delivery O2 Flow Rate FiO2 11/01/16 12:16 98 11/01/16 11:57 99.0 20 103/73 100 11/01/16 08:30 Aerosol 5.0 28 Intake and Output 10/31/16 10/31/16 11/01/16 15:00 23:00 07:00 Intake Total 425 ml 650 ml 1275.5 ml Output Total 1400 ml 1000 ml Balance 425 ml -750 ml 275.5 ml Results Result Diagram: 11/01/16 0600 10/31/16 1030 Results 24 hrs Laboratory Tests Test 10/31/16 18:45 11/01/16 01:00 11/01/16 06:00 Hematocrit 24.4 L 22.9 L 21.6 L Hemoglobin 8.5 L 7.9 L 7.5 L Anisocytosis 1+ Band Neutrophils % 9.0 H Basophils # Basophils % Blood Morphology Comment Differential Comment MANUAL DIFF Eosinophils # Eosinophils % Lymphocytes # 0.1 L Lymphocytes % 6.0 L Mean Corpuscular Hemoglobin 29.1 Mean Corpuscular Hemoglobin Concent 34.8 Mean Corpuscular Volume 83.8 Mean Platelet Volume 8.2 Metamyelocytes # 0.1 Metamyelocytes % 4.0 H Monocytes # 0.1 L Monocytes % 5.0 Neutrophils # 1.7 Neutrophils % 76.0 Nucleated Red Blood Cells # Nucleated Red Blood Cells % 1.0 H Platelet Count 34 #L Platelet Estimate PLT APPEAR DECREASED Red Blood Count 2.58 L Red Cell Distribution Width 15.9 H White Blood Count 2.3 #L Medications Medications Current Medications Bicalutamide (Casodex) 50 mg QAM PO Last administered on 11/01/16 09:44; Admin Dose 50 MG; Start 09/07/16 at 09:00 Docusate Sodium (Colace) 100 mg BID PRN PO CONSTIPATION Last administered on 05:22; Admin Dose 100 MG; Start 09/07/16 at 00:00; Status Future Hold Escitalopram Oxalate (Lexapro) 5 mg DAILY PO Last administered on 11/01/16 09: 27; Admin Dose 5 MG; Start 09/07/16 at 09:00 Megestrol Acetate (Megace Susp) 400 mg BID PO Last administered on 11/01/16 09 :27; Admin Dose 400 MG; Start 09/07/16 at 09:00 Methylnaltrexone [place] (Relistor) 12 mg Q48H SC Last administered on 23:54; Admin Dose 12 MG; Start 09/07/16 at 00:00; Status Future Hold Ondansetron HCl (Zofran Tab) 4 mg Q6H PRN PO NAUSEA AND/OR VOMITING Last administered on 10/19/16 18:17; Admin Dose 4 MG; Start 09/07/16 at 00:00 Acetaminophen (Tylenol Tab) 500 mg Q4H PRN PO PAIN AND OR ELEVATED TEMP Last administered on 10/05/16 15:37; Admin Dose 500 MG; Start 09/07/16 at 21:30 IV Flush (NS 10 ml) 10 ml PRN PRN IV IV PROTOCOL; Start 09/11/16 at 10:00 Calcium/Vitamin D (Oyster Shell/ Vit-D (500/200)) 1 tab BID PO Last administered on 11/01/16 09:28; Admin Dose 1 TAB; Start 09/12/16 at 14:00 IV Flush 10 ml 10 ml PRN PRN IV IV PROTOCOL; Start 09/21/16 at 12:00 Ondansetron HCl/ Sodium Chloride (Zofran Inj/NS) 54 ml @ 216 mls/hr Q12H PRN IV NAUSEA AND/OR VOMITING; Start 09/29/16 at 22:00 Prednisone (Prednisone) 5 mg BID PO Last administered on 11/01/16 09:28; Admin Dose 5 MG; Start 09/29/16 at 21:00 Bisacodyl (Dulcolax Supp) 10 mg DAILY PRN [place] CONSTIPATION Last administered on 10/07/16 03:07; Admin Dose 10 MG; Start 10/07/16 at 03:00 Fidaxomicin (Dificid) 200 mg BID PO Last administered on 11/01/16 09:27; Admin Dose 200 MG; Start 10/17/16 at 10:30 Cholestyramine Resin 4 gm 4 gm BID PO Last administered on 11/01/16 09:27; Admin Dose 4 GM; Start 10/22/16 at 21:00 Filgrastim/ Dextrose (Neupogen/D5W) 51 ml @ 102 mls/hr DAILY@17 IVPB Last administered on 10/31/16 17:52; Admin Dose 102 MLS/HR; Start 10/25/16 at 17:00 Vancomycin HCl (Vancomycin Oral Syringe) 250 mg Q6 PO Last administered on 11/01 12:26; Admin Dose 250 MG; Start 10/25/16 at 18:00 Metronidazole (Flagyl) 500 mg Q8 PO Last administered on 11/01/16 05:48; Admin Dose 500 MG; Start 10/25/16 at 14:00 Fluconazole (Diflucan) 100 mg DAILY PO Last administered on 11/01/16 09:29; Admin Dose 100 MG; Start 10/26/16 at 16:00 Hydromorphone HCl (Dilaudid) 2.5 mg Q3H PRN IV PAIN Last administered on 03:37; Admin Dose 2.5 MG; Start 10/28/16 at 18:30 Dexamethasone (Decadron) 4 mg Q6H IV Last administered on 11/01/16 09:29; Admin Dose 4 MG; Start 10/29/16 at 03:45 Gentamicin Sulfate GENTAMICIN PER PHARM... NOTE XX ; Start 10/29/16 at 16:30; Stop 11/03/16 at 16:29 Dextrose/Sodium Chloride 1,000 ml @ 75 mls/hr [id number] IV Last administered on 11/01/16 03:15; Admin Dose 75 MLS/HR; Start 10/29/16 at 18:30 Gentamicin Sulfate 300 mg/ Sodium Chloride 107.5 ml @ 103.75 mls/ hr Q24H IVPB Last administered on 10/31/16 22:14; Admin Dose 103.75 MLS/HR; Start at 22:00; Stop 11/03/16 at 21:59 Pantoprazole/ Sodium Chloride (Protonix Iv/NS) 100 ml @ 10 mls/hr Q10H IV Last administered on 11/01/16 09:27; Admin Dose 10 MLS/HR; Start 10/30/16 at 16 :00 Methadone HCl (Methadone Liq) 3 mg Q6 PO Last administered on 11/01/16 12:26; Admin Dose 3 MG; Start 10/31/16 at 06:00 EUNICE GUNTER NP Nov 01, 2016 12:40
[2016-11-01 12:58] LABS: HEMATOCRIT 21.9 % (42.0-52.0); HEMOGLOBIN 7.4 g/dl (14.0-18.0)
--- NOTE | 2016-11-01 17:02 | PN ---
Date/Time of Note Date/Time of Note DATE: 11/01/16 TIME: 17:01 Assessment/Plan VTE Prophylaxis VTE Prophylaxis Intervention: SCD's Lines/Catheters IV Catheter Type (from Nrsg): PICC Line Central line still needed: Yes Urinary Cath still in place: Yes Reason Cath still needed: urinary retention Assessment/Plan Chief Complaint/Hosp Course ASSESSMENT AND PLAN: 1. Clostridium difficile colitis. Contact isolation. Patient is followed by Dr. Harini rosas from infectious disease standpoint. Patient is currently on Questran, Dificid, Vanco and Flagyl. 2. Metastatic prostate cancer. Dr. Hernandez is following patient in oncology consultation. Continue chemotherapy and steroids. 3. Thrombocytopenia. Continue to monitor platelets. 4. Acute on chronic back pain. Dr. Ferguson is following the patient in pain management. Continue methadone and Dilaudid p.r.n. for breakthrough pain. 5. Anemia, this post blood transfusion, continue to monitor hemoglobin and hematocrit. 6. MRSA UTI, status post treatment 7. Protein calorie malnutrition, continue Megace, continue high-protein and high-calorie diet, continue tube feeding via NG tube. 8. Hyponatremia, continue IV fluids. 9. Vocal cord paralysis. S/p eval by Dr Osman, ENT. Continue frequent suctioning. Continue tele monitoring. Pending hospice evaluation Further recommendations based on clinical course. Plan of care discussed with Dr. Nichols. Problems: Exam/Review of Systems Vital Signs Vitals Vital Signs Date Time Temp Pulse Resp B/P Pulse Ox O2 Delivery O2 Flow Rate FiO2 11/01/16 16:05 99.2 122 20 118/79 98 11/01/16 13:10 Aerosol Mask 5.0 28 Intake and Output 10/31/16 10/31/16 11/01/16 15:00 23:00 07:00 Intake Total 425 ml 650 ml 1275.5 ml Output Total 1400 ml 1000 ml Balance 425 ml -750 ml 275.5 ml Exam GENERAL: Well-developed, cachectic male, currently is awake, alert. HEENT: Head is atraumatic, normocephalic. PERRLA. NGT. NECK: Supple. No mass, no thyromegaly. LUNGS: Clear bilaterally. No rhonchi, wheezes, rales noted. HEART: Normal S1, S2. No murmurs, gallops, clicks, rubs noted. ABDOMEN: Flat, soft, nondistended, nontender. Bowel sounds present. EXTREMITIES: No edema. SKIN: There is no rash, petechiae noted. NEUROLOGIC: The patient is awake, alert, and oriented x3. Results Result Diagram: 11/01/16 1250 10/31/16 1030 Results 24 hrs Laboratory Tests Test 10/31/16 18:45 11/01/16 01:00 11/01/16 06:00 11/01/16 12:50 Hematocrit 24.4 L 22.9 L 21.6 L 21.9 L Hemoglobin 8.5 L 7.9 L 7.5 L 7.4 L Anisocytosis 1+ Band Neutrophils % 9.0 H Basophils # Basophils % Blood Morphology Comment Differential Comment MANUAL DIFF Eosinophils # Eosinophils % Lymphocytes # 0.1 L Lymphocytes % 6.0 L Mean Corpuscular Hemoglobin 29.1 Mean Corpuscular Hemoglobin Concent 34.8 Mean Corpuscular Volume 83.8 Mean Platelet Volume 8.2 Metamyelocytes # 0.1 Metamyelocytes % 4.0 H Monocytes # 0.1 L Monocytes % 5.0 Neutrophils # 1.7 Neutrophils % 76.0 Nucleated Red Blood Cells # Nucleated Red Blood Cells % 1.0 H Platelet Count 34 #L Platelet Estimate PLT APPEAR DECREASED Red Blood Count 2.58 L Red Cell Distribution Width 15.9 H White Blood Count 2.3 #L Medications Medications Current Medications Bicalutamide (Casodex) 50 mg QAM PO Last administered on 11/01/16 09:44; Admin Dose 50 MG; Start 09/07/16 at 09:00 Docusate Sodium (Colace) 100 mg BID PRN PO CONSTIPATION Last administered on 05:22; Admin Dose 100 MG; Start 09/07/16 at 00:00; Status Future Hold Escitalopram Oxalate (Lexapro) 5 mg DAILY PO Last administered on 11/01/16 09: 27; Admin Dose 5 MG; Start 09/07/16 at 09:00 Megestrol Acetate (Megace Susp) 400 mg BID PO Last administered on 11/01/16 09 :27; Admin Dose 400 MG; Start 09/07/16 at 09:00 Methylnaltrexone [place] (Relistor) 12 mg Q48H SC Last administered on 23:54; Admin Dose 12 MG; Start 09/07/16 at 00:00; Status Future Hold Ondansetron HCl (Zofran Tab) 4 mg Q6H PRN PO NAUSEA AND/OR VOMITING Last administered on 10/19/16 18:17; Admin Dose 4 MG; Start 09/07/16 at 00:00 Acetaminophen (Tylenol Tab) 500 mg Q4H PRN PO PAIN AND OR ELEVATED TEMP Last administered on 10/05/16 15:37; Admin Dose 500 MG; Start 09/07/16 at 21:30 IV Flush (NS 10 ml) 10 ml PRN PRN IV IV PROTOCOL; Start 09/11/16 at 10:00 Calcium/Vitamin D (Oyster Shell/ Vit-D (500/200)) 1 tab BID PO Last administered on 11/01/16 09:28; Admin Dose 1 TAB; Start 09/12/16 at 14:00 IV Flush 10 ml 10 ml PRN PRN IV IV PROTOCOL; Start 09/21/16 at 12:00 Ondansetron HCl/ Sodium Chloride (Zofran Inj/NS) 54 ml @ 216 mls/hr Q12H PRN IV NAUSEA AND/OR VOMITING; Start 09/29/16 at 22:00 Prednisone (Prednisone) 5 mg BID PO Last administered on 11/01/16 09:28; Admin Dose 5 MG; Start 09/29/16 at 21:00 Bisacodyl (Dulcolax Supp) 10 mg DAILY PRN [place] CONSTIPATION Last administered on 10/07/16 03:07; Admin Dose 10 MG; Start 10/07/16 at 03:00 Fidaxomicin (Dificid) 200 mg BID PO Last administered on 11/01/16 09:27; Admin Dose 200 MG; Start 10/17/16 at 10:30 Cholestyramine Resin 4 gm 4 gm BID PO Last administered on 11/01/16 09:27; Admin Dose 4 GM; Start 10/22/16 at 21:00 Filgrastim/ Dextrose (Neupogen/D5W) 51 ml @ 102 mls/hr DAILY@17 IVPB Last administered on 10/31/16 17:52; Admin Dose 102 MLS/HR; Start 10/25/16 at 17:00 Vancomycin HCl (Vancomycin Oral Syringe) 250 mg Q6 PO Last administered on 11/01 12:26; Admin Dose 250 MG; Start 10/25/16 at 18:00 Metronidazole (Flagyl) 500 mg Q8 PO Last administered on 11/01/16 15:30; Admin Dose 500 MG; Start 10/25/16 at 14:00 Fluconazole (Diflucan) 100 mg DAILY PO Last administered on 11/01/16 09:29; Admin Dose 100 MG; Start 10/26/16 at 16:00 Hydromorphone HCl (Dilaudid) 2.5 mg Q3H PRN IV PAIN Last administered on 15:36; Admin Dose 2.5 MG; Start 10/28/16 at 18:30 Dexamethasone (Decadron) 4 mg Q6H IV Last administered on 11/01/16 15:30; Admin Dose 4 MG; Start 10/29/16 at 03:45 Gentamicin Sulfate GENTAMICIN PER PHARM... NOTE XX ; Start 10/29/16 at 16:30; Stop 11/03/16 at 16:29 Dextrose/Sodium Chloride 1,000 ml @ 75 mls/hr [id number] IV Last administered on 11/01/16 03:15; Admin Dose 75 MLS/HR; Start 10/29/16 at 18:30 Gentamicin Sulfate 300 mg/ Sodium Chloride 107.5 ml @ 103.75 mls/ hr Q24H IVPB Last administered on 10/31/16 22:14; Admin Dose 103.75 MLS/HR; Start at 22:00; Stop 11/03/16 at 21:59 Pantoprazole/ Sodium Chloride (Protonix Iv/NS) 100 ml @ 10 mls/hr Q10H IV Last administered on 11/01/16 09:27; Admin Dose 10 MLS/HR; Start 10/30/16 at 16 :00 Methadone HCl (Methadone Liq) 3 mg Q6 PO Last administered on 11/01/16 12:26; Admin Dose 3 MG; Start 10/31/16 at 06:00 Miscellaneous Information (*Rx Drug Level Order Reminder*) 1 ONCE ONCE XX ; Start 11/01/16 at 21:00; Stop 11/01/16 at 21:01 SREE GRIFFITH Nov 01, 2016 17:02
[2016-11-01] MEDS: FILGRASTIM 300 MCG in DEXTROSE 5% 50 ML IVPB SCH (17:59)
[2016-11-01 18:51] LABS: HEMATOCRIT 23.7 % (42.0-52.0); HEMOGLOBIN 8.1 g/dl (14.0-18.0)
--- NOTE | 2016-11-01 19:10 | CONS ---
Date/Time of Note Date/Time of Note DATE: 11/01/16 TIME: 19:10 Assessment/Plan Assessment/Plan Chief Complaint/Hosp Course Metastatic prostate cancer. FAMILY CONFERENCE RE DX, PROGNOSIS AND TREATMENT OPTIONS COMFORT CARE NEUTROPENIA POST NEUPOGEN ANEMIA POST PRBC MONITOR CLOSELY OBSERVE FOR BLEEDING AND HEMOLYSIS Thrombocytopenia. Continue to monitor platelets. transfuse as needed PANCYTOPENIA MONITOR DECONDITIONING PT Acute on chronic back pain. PAIN CONTROL C DIFF COLITIS ATB PER ID Problems: Consultation Date/Type/Reason Admit Date/Time Sep 06, 2016 at 22:01 Initial Consult Date 09/08/16 Referring Provider: TIMOTHY MARAVILLA MD 24 HR Interval Summary Free Text/Dictation ALL NOTED NO NEW EVENTS Exam/Review of Systems Vital Signs Vitals Vital Signs Date Time Temp Pulse Resp B/P Pulse Ox O2 Delivery O2 Flow Rate FiO2 11/01/16 17:34 106 11/01/16 16:05 99.2 20 118/79 98 11/01/16 13:10 Aerosol Mask 5.0 28 Intake and Output 10/31/16 10/31/16 11/01/16 15:00 23:00 07:00 Intake Total 425 ml 650 ml 1275.5 ml Output Total 1400 ml 1000 ml Balance 425 ml -750 ml 275.5 ml Exam GENERAL: The patient is lethargic but arousable. HEENT: No eye discharge. Oropharynx revealed dry mucosa. NECK: No mass. LUNGS: Occasional coarse breath sounds. CARDIOVASCULAR: S1, S2 normal. Sinus tachycardia. ABDOMEN: Soft, nondistended, nontender. EXTREMITIES: No leg edema. Cachectic extremities. Results Result Diagram: 11/01/16 1840 10/31/16 1030 Results 24 hrs Laboratory Tests Test 11/01/16 01:00 11/01/16 06:00 11/01/16 12:50 11/01/16 18:40 Hematocrit 22.9 L 21.6 L 21.9 L 23.7 L Hemoglobin 7.9 L 7.5 L 7.4 L 8.1 L Anisocytosis 1+ Band Neutrophils % 9.0 H Basophils # Basophils % Blood Morphology Comment Differential Comment MANUAL DIFF Eosinophils # Eosinophils % Lymphocytes # 0.1 L Lymphocytes % 6.0 L Mean Corpuscular Hemoglobin 29.1 Mean Corpuscular Hemoglobin Concent 34.8 Mean Corpuscular Volume 83.8 Mean Platelet Volume 8.2 Metamyelocytes # 0.1 Metamyelocytes % 4.0 H Monocytes # 0.1 L Monocytes % 5.0 Neutrophils # 1.7 Neutrophils % 76.0 Nucleated Red Blood Cells # Nucleated Red Blood Cells % 1.0 H Platelet Count 34 #L Platelet Estimate PLT APPEAR DECREASED Red Blood Count 2.58 L Red Cell Distribution Width 15.9 H White Blood Count 2.3 #L Medications Medications Current Medications Bicalutamide (Casodex) 50 mg QAM PO Last administered on 11/01/16 09:44; Admin Dose 50 MG; Start 09/07/16 at 09:00 Docusate Sodium (Colace) 100 mg BID PRN PO CONSTIPATION Last administered on 05:22; Admin Dose 100 MG; Start 09/07/16 at 00:00; Status Future Hold Escitalopram Oxalate (Lexapro) 5 mg DAILY PO Last administered on 11/01/16 09: 27; Admin Dose 5 MG; Start 09/07/16 at 09:00 Megestrol Acetate (Megace Susp) 400 mg BID PO Last administered on 11/01/16 09 :27; Admin Dose 400 MG; Start 09/07/16 at 09:00 Methylnaltrexone [place] (Relistor) 12 mg Q48H SC Last administered on 23:54; Admin Dose 12 MG; Start 09/07/16 at 00:00; Status Future Hold Ondansetron HCl (Zofran Tab) 4 mg Q6H PRN PO NAUSEA AND/OR VOMITING Last administered on 10/19/16 18:17; Admin Dose 4 MG; Start 09/07/16 at 00:00 Acetaminophen (Tylenol Tab) 500 mg Q4H PRN PO PAIN AND OR ELEVATED TEMP Last administered on 10/05/16 15:37; Admin Dose 500 MG; Start 09/07/16 at 21:30 IV Flush (NS 10 ml) 10 ml PRN PRN IV IV PROTOCOL; Start 09/11/16 at 10:00 Calcium/Vitamin D (Oyster Shell/ Vit-D (500/200)) 1 tab BID PO Last administered on 11/01/16 09:28; Admin Dose 1 TAB; Start 09/12/16 at 14:00 IV Flush 10 ml 10 ml PRN PRN IV IV PROTOCOL; Start 09/21/16 at 12:00 Ondansetron HCl/ Sodium Chloride (Zofran Inj/NS) 54 ml @ 216 mls/hr Q12H PRN IV NAUSEA AND/OR VOMITING; Start 09/29/16 at 22:00 Prednisone (Prednisone) 5 mg BID PO Last administered on 11/01/16 09:28; Admin Dose 5 MG; Start 09/29/16 at 21:00 Bisacodyl (Dulcolax Supp) 10 mg DAILY PRN [place] CONSTIPATION Last administered on 10/07/16 03:07; Admin Dose 10 MG; Start 10/07/16 at 03:00 Fidaxomicin (Dificid) 200 mg BID PO Last administered on 11/01/16 09:27; Admin Dose 200 MG; Start 10/17/16 at 10:30 Cholestyramine Resin 4 gm 4 gm BID PO Last administered on 11/01/16 09:27; Admin Dose 4 GM; Start 10/22/16 at 21:00 Filgrastim/ Dextrose (Neupogen/D5W) 51 ml @ 102 mls/hr DAILY@17 IVPB Last administered on 11/01/16 17:59; Admin Dose 102 MLS/HR; Start 10/25/16 at 17:00 Vancomycin HCl (Vancomycin Oral Syringe) 250 mg Q6 PO Last administered on 11/01 18:00; Admin Dose 250 MG; Start 10/25/16 at 18:00 Metronidazole (Flagyl) 500 mg Q8 PO Last administered on 11/01/16 15:30; Admin Dose 500 MG; Start 10/25/16 at 14:00 Fluconazole (Diflucan) 100 mg DAILY PO Last administered on 11/01/16 09:29; Admin Dose 100 MG; Start 10/26/16 at 16:00 Hydromorphone HCl (Dilaudid) 2.5 mg Q3H PRN IV PAIN Last administered on 15:36; Admin Dose 2.5 MG; Start 10/28/16 at 18:30 Dexamethasone (Decadron) 4 mg Q6H IV Last administered on 11/01/16 15:30; Admin Dose 4 MG; Start 10/29/16 at 03:45 Gentamicin Sulfate GENTAMICIN PER PHARM... NOTE XX ; Start 10/29/16 at 16:30; Stop 11/03/16 at 16:29 Dextrose/Sodium Chloride 1,000 ml @ 75 mls/hr [id number] IV Last administered on 11/01/16 18:39; Admin Dose 75 MLS/HR; Start 10/29/16 at 18:30 Gentamicin Sulfate 300 mg/ Sodium Chloride 107.5 ml @ 103.75 mls/ hr Q24H IVPB Last administered on 10/31/16 22:14; Admin Dose 103.75 MLS/HR; Start at 22:00; Stop 11/03/16 at 21:59 Pantoprazole/ Sodium Chloride (Protonix Iv/NS) 100 ml @ 10 mls/hr Q10H IV Last administered on 11/01/16 09:27; Admin Dose 10 MLS/HR; Start 10/30/16 at 16 :00 Methadone HCl (Methadone Liq) 3 mg Q6 PO Last administered on 11/01/16 18:00; Admin Dose 3 MG; Start 10/31/16 at 06:00 Miscellaneous Information (*Rx Drug Level Order Reminder*) 1 ONCE ONCE XX ; Start 11/01/16 at 21:00; Stop 11/01/16 at 21:01 JARAD CHOI MD Nov 01, 2016 19:10
[2016-11-01] MEDS: GENTAMICIN 300 MG in SOD CHLORIDE 0.9% 100 ML IVPB SCH (22:00)
[2016-11-02] VITALS (11 sets, daily range): BP systolic 111–135; BP diastolic 81–93; PULSE 97–123; RESP 18–20
[2016-11-02] MEDS: VANCOMYCIN HCL 250 MG/5ML POSYG PO SCH ×2 (00:37→05:10)
[2016-11-02 01:17] LABS: HEMATOCRIT 22.1 % (42.0-52.0); HEMOGLOBIN 7.7 g/dl (14.0-18.0)
[2016-11-02] MEDS: HYDROmorphONE 2 MG/ML SYG IV PRN ×2 (02:44→09:11)
[2016-11-02] MEDS: DEXTROSE 5%-0.45% NACL 1,000 ML IV SCH (03:02)
[2016-11-02] MEDS: DEXAMETHASONE 4 MG/ML 1 ML INJ IV SCH ×3 (03:03→16:20)
[2016-11-02] MEDS: PANTOPRAZOLE IV 80 MG in SOD CHLORIDE 0.9% 100 ML IV SCH (04:14)
[2016-11-02] MEDS: METHADONE (1 MG/ML 5 ML PO UD SYG) PO SCH (05:10)
[2016-11-02] MEDS: metroNIDAZOLE 500 MG TAB PO SCH (05:10)
[2016-11-02 07:07] LABS: HEMATOCRIT 22.1 % (42.0-52.0); HEMOGLOBIN 7.6 g/dl (14.0-18.0); MEAN CORPUSCULAR HEMOGLOBIN 29.1 pg (29.0-33.0); MEAN CORPUSCULAR HGB CONC 34.4 g/dl (32.0-37.0); MEAN CORPUSCULAR VOLUME 84.7 fl (82.0-101.0); RED BLOOD COUNT 2.61 10^6/ul (4.70-6.10); RED CELL DISTRIBUTION WIDTH 15.6 % (11.5-14.5); UNCORRECTED WBC 1.2 10^3/ul (4.8-10.8); WHITE BLOOD COUNT 1.2 10^3/ul (4.8-10.8)
[2016-11-02 07:10] LABS: CREATININE 0.34 mg/dl (0.61-1.24)
[2016-11-02 07:19] LABS: CONDITION 1; LH ANALYZER COMMENTS 1; PLATELET COUNT 20 10^3/UL (140-440); SUSPECT 1
[2016-11-02] MEDS: CHOLESTYRAMINE (LIGHT) 4 GM PACKET PO SCH (09:19)
[2016-11-02] MEDS: FIDAXOMICIN 200 MG TABLET PO SCH (09:20)
[2016-11-02] MEDS: MEGESTROL (40 MG/ML) 10ML CUP PO SCH (09:20)
[2016-11-02] MEDS: CALCIUM/VITAMIN D (500/200) TAB PO SCH (09:20)
[2016-11-02] MEDS: predniSONE 5 MG TAB PO SCH (09:20)
[2016-11-02] MEDS: ESCITALOPRAM 10 MG TAB PO SCH (09:20)
[2016-11-02] MEDS: FLUCONAZOLE 100 MG TAB PO SCH (09:20)
[2016-11-02] MEDS: BICALUTAMIDE 50 MG TAB PO SCH (09:35)
[2016-11-02 09:42] LABS: ANISOCYTOSIS 1+; LYMPHOCYTES # 0.2 10^3/ul (0.8-2.9); MONOCYTE # 0.1 10^3/ul (0.3-0.9); NEUTROPHIL # 0.6 10^3/ul (1.6-7.5); PLATELET ESTIMATE PLT APPEAR DECREASED
[2016-11-02] MEDS ORDERED: ACETAMINOPHEN 650 MG SUPP PR PRN (11:30)
[2016-11-02] MEDS ORDERED: ONDANSETRON 4 MG INJ IV PRN (11:30)
[2016-11-02] MEDS ORDERED: ALBUTEROL/IPRATROPIUM (NEB) 3 ML AMP HHN PRN (11:30)
[2016-11-02] MEDS ORDERED: LORAZEPAM 2 MG INJ IV PRN (11:30)
[2016-11-02] MEDS ORDERED: ATROPINE SULFATE 1% 5ML SL PRN (11:30)
--- NOTE | 2016-11-02 11:45 | CONS ---
Date/Time of Note Date/Time of Note DATE: 11/02/16 TIME: 11:44 Assessment/Plan Assessment/Plan Chief Complaint/Hosp Course Metastatic prostate cancer. FAMILY CONFERENCE RE DX, PROGNOSIS AND TREATMENT OPTIONS COMFORT CARE NEUTROPENIA POST NEUPOGEN ANEMIA POST PRBC MONITOR CLOSELY OBSERVE FOR BLEEDING AND HEMOLYSIS Thrombocytopenia. Continue to monitor platelets. transfuse as needed PANCYTOPENIA MONITOR DECONDITIONING PT Acute on chronic back pain. PAIN CONTROL C DIFF COLITIS ATB PER ID Problems: Consultation Date/Type/Reason Admit Date/Time Sep 06, 2016 at 22:01 Initial Consult Date 09/08/16 Referring Provider: TIMOTHY MARAVILLA MD 24 HR Interval Summary Free Text/Dictation ALL NOTED NO NEW EVENTS Exam/Review of Systems Vital Signs Vitals Vital Signs Date Time Temp Pulse Resp B/P Pulse Ox O2 Delivery O2 Flow Rate FiO2 11/02/16 10:59 100 5.0 28 11/02/16 08:26 97 11/02/16 08:00 Simple Mask 11/02/16 07:32 97.8 19 123/81 Intake and Output 11/01/16 11/01/16 11/02/16 15:00 23:00 07:00 Intake Total 1000 ml 150 ml Output Total 600 ml 800 ml Balance 400 ml -650 ml Exam GENERAL: The patient is lethargic but arousable. HEENT: No eye discharge. Oropharynx revealed dry mucosa. NECK: No mass. LUNGS: Occasional coarse breath sounds. CARDIOVASCULAR: S1, S2 normal. Sinus tachycardia. ABDOMEN: Soft, nondistended, nontender. EXTREMITIES: No leg edema. Cachectic extremities. NEUROLOGIC: The patient is lethargic but arousable. Results Result Diagram: 11/02/16 0630 11/02/16 0630 Results 24 hrs Laboratory Tests Test 11/01/16 12:50 11/01/16 18:40 11/01/16 21:00 11/02/16 00:58 Hematocrit 21.9 L 23.7 L 22.1 L Hemoglobin 7.4 L 8.1 L 7.7 L Gentamicin Level Trough < 0.6 L Test 11/02/16 06:30 Anisocytosis 1+ Band Neutrophils % 21.0 H Basophils # 0.0 Basophils % 1.0 Blood Morphology Comment Blood Urea Nitrogen 7 Creatinine 0.34 L Differential Comment MANUAL DIFF Eosinophils # Eosinophils % Hematocrit 22.1 L Hemoglobin 7.6 L Lymphocytes # 0.2 L Lymphocytes % 16.0 Mean Corpuscular Hemoglobin 29.1 Mean Corpuscular Hemoglobin Concent 34.4 Mean Corpuscular Volume 84.7 Mean Platelet Volume 10.0 # Monocytes # 0.1 L Monocytes % 9.0 Myelocytes # 0.0 Myelocytes % 1.0 H Neutrophils # 0.6 L Neutrophils % 52.0 Nucleated Red Blood Cells # Nucleated Red Blood Cells % Platelet Count 20 #*L Platelet Estimate PLT APPEAR DECREASED Red Blood Count 2.61 L Red Cell Distribution Width 15.6 H White Blood Count 1.2 #L Medications Medications Current Medications Ondansetron HCl (Zofran Tab) 4 mg Q6H PRN PO NAUSEA AND/OR VOMITING Last administered on 10/19/16 18:17; Admin Dose 4 MG; Start 09/07/16 at 00:00 Calcium/Vitamin D (Oyster Shell/ Vit-D (500/200)) 1 tab BID PO Last administered on 11/02/16 09:20; Admin Dose 1 TAB; Start 09/12/16 at 14:00 Bisacodyl (Dulcolax Supp) 10 mg DAILY PRN [place] CONSTIPATION Last administered on 10/07/16 03:07; Admin Dose 10 MG; Start 10/07/16 at 03:00 Dexamethasone (Decadron) 4 mg Q6H IV Last administered on 11/02/16 03:03; Admin Dose 4 MG; Start 10/29/16 at 03:45 Acetaminophen (Tylenol Supp) 650 mg Q6H PRN [place] TEMP>100; Start 11/02/16 at 11: 30 Albuterol/ Ipratropium 3 ml 3 ml Q6H PRN HHN SHORTNESS OF BREATH/WHEEZE; Start 11/02/16 at 11:30 Hydromorphone HCl/ Dextrose (Dilaudid/D5W) 50 ml @ 1 mls/hr TITRATE IVPB ; Start 11/02/16 at 12:30 Ondansetron HCl (Zofran Inj) 4 mg Q6H PRN IV NAUSEA AND/OR VOMITING; Start at 11:30 Pantoprazole (Protonix Iv) 40 mg BID@06,18 IV ; Start 11/02/16 at 18:00 Lorazepam (Ativan) 1 mg Q4H PRN IV ANXIETY; Start 11/02/16 at 11:30 Atropine Sulfate (Atropine Sulfate) 2 drop Q2H PRN [place] SECRETIONS; Start at 11:30 JARAD CHOI MD Nov 02, 2016 11:45
--- NOTE | 2016-11-02 11:47 | PN ---
Date/Time of Note Date/Time of Note DATE: 11/02/16 TIME: 11:45 Assessment/Plan VTE Prophylaxis VTE Prophylaxis Intervention: SCD's Lines/Catheters IV Catheter Type (from Nrsg): PICC Line Central line still needed: Yes Urinary Cath still in place: Yes Reason Cath still needed: urinary retention Assessment/Plan Chief Complaint/Hosp Course ASSESSMENT AND PLAN: 1. Clostridium difficile colitis. Contact isolation. Patient is followed by Dr. Harini rosas from infectious disease standpoint. Patient is currently on Questran, Dificid, Vanco and Flagyl. 2. Metastatic prostate cancer. Dr. Hernandez is following patient in oncology consultation. Continue chemotherapy and steroids. 3. Thrombocytopenia. Continue to monitor platelets. 4. Acute on chronic back pain. Dr. Ferguson is following the patient in pain management. Continue methadone and Dilaudid p.r.n. for breakthrough pain. 5. Anemia, this post blood transfusion, continue to monitor hemoglobin and hematocrit. 6. MRSA UTI, status post treatment 7. Protein calorie malnutrition, continue Megace, continue high-protein and high-calorie diet, continue tube feeding via NG tube. 8. Hyponatremia, continue IV fluids. 9. Vocal cord paralysis. S/p eval by Dr Osman, ENT. Continue frequent suctioning. Continue tele monitoring. Undergoing hospice evaluation Further recommendations based on clinical course. Plan of care discussed with Dr. Nichols. Problems: Exam/Review of Systems Vital Signs Vitals Vital Signs Date Time Temp Pulse Resp B/P Pulse Ox O2 Delivery O2 Flow Rate FiO2 11/02/16 10:59 100 5.0 28 11/02/16 08:26 97 11/02/16 08:00 Simple Mask 11/02/16 07:32 97.8 19 123/81 Intake and Output 11/01/16 11/01/16 11/02/16 15:00 23:00 07:00 Intake Total 1000 ml 150 ml Output Total 600 ml 800 ml Balance 400 ml -650 ml Exam GENERAL: Well-developed, cachectic male, currently is awake, alert. HEENT: Head is atraumatic, normocephalic. PERRLA. NGT. NECK: Supple. No mass, no thyromegaly. LUNGS: Clear bilaterally. No rhonchi, wheezes, rales noted. HEART: Normal S1, S2. No murmurs, gallops, clicks, rubs noted. ABDOMEN: Flat, soft, nondistended, nontender. Bowel sounds present. EXTREMITIES: No edema. SKIN: There is no rash, petechiae noted. NEUROLOGIC: The patient is awake, alert, and oriented x3. Results Result Diagram: 11/02/16 0630 11/02/16 0630 Results 24 hrs Laboratory Tests Test 11/01/16 12:50 11/01/16 18:40 11/01/16 21:00 11/02/16 00:58 Hematocrit 21.9 L 23.7 L 22.1 L Hemoglobin 7.4 L 8.1 L 7.7 L Gentamicin Level Trough < 0.6 L Test 11/02/16 06:30 Anisocytosis 1+ Band Neutrophils % 21.0 H Basophils # 0.0 Basophils % 1.0 Blood Morphology Comment Blood Urea Nitrogen 7 Creatinine 0.34 L Differential Comment MANUAL DIFF Eosinophils # Eosinophils % Hematocrit 22.1 L Hemoglobin 7.6 L Lymphocytes # 0.2 L Lymphocytes % 16.0 Mean Corpuscular Hemoglobin 29.1 Mean Corpuscular Hemoglobin Concent 34.4 Mean Corpuscular Volume 84.7 Mean Platelet Volume 10.0 # Monocytes # 0.1 L Monocytes % 9.0 Myelocytes # 0.0 Myelocytes % 1.0 H Neutrophils # 0.6 L Neutrophils % 52.0 Nucleated Red Blood Cells # Nucleated Red Blood Cells % Platelet Count 20 #*L Platelet Estimate PLT APPEAR DECREASED Red Blood Count 2.61 L Red Cell Distribution Width 15.6 H White Blood Count 1.2 #L Medications Medications Current Medications Ondansetron HCl (Zofran Tab) 4 mg Q6H PRN PO NAUSEA AND/OR VOMITING Last administered on 10/19/16 18:17; Admin Dose 4 MG; Start 09/07/16 at 00:00 Calcium/Vitamin D (Oyster Shell/ Vit-D (500/200)) 1 tab BID PO Last administered on 11/02/16 09:20; Admin Dose 1 TAB; Start 09/12/16 at 14:00 Bisacodyl (Dulcolax Supp) 10 mg DAILY PRN [place] CONSTIPATION Last administered on 10/07/16 03:07; Admin Dose 10 MG; Start 10/07/16 at 03:00 Dexamethasone (Decadron) 4 mg Q6H IV Last administered on 2/15/17at 03:03; Admin Dose 4 MG; Start 10/29/16 at 03:45 Acetaminophen (Tylenol Supp) 650 mg Q6H PRN [place] TEMP>100; Start 11/02/16 at 11: 30 Albuterol/ Ipratropium 3 ml 3 ml Q6H PRN HHN SHORTNESS OF BREATH/WHEEZE; Start 11/02/16 at 11:30 Hydromorphone HCl/ Dextrose (Dilaudid/D5W) 50 ml @ 1 mls/hr TITRATE IVPB ; Start 11/02/16 at 12:30 Ondansetron HCl (Zofran Inj) 4 mg Q6H PRN IV NAUSEA AND/OR VOMITING; Start at 11:30 Pantoprazole (Protonix Iv) 40 mg BID@06,18 IV ; Start 11/02/16 at 18:00 Lorazepam (Ativan) 1 mg Q4H PRN IV ANXIETY; Start 11/02/16 at 11:30 Atropine Sulfate (Atropine Sulfate) 2 drop Q2H PRN [place] SECRETIONS; Start at 11:30 SREE GRIFFITH Nov 02, 2016 11:47
--- NOTE | 2016-11-02 12:39 | CONS ---
Date/Time of Note Date/Time of Note DATE: 11/02/16 TIME: 12:36 Assessment/Plan Assessment/Plan Additional Assessment/Plan Assessment recommendations; 1. Patient admitted with stridor with interval resolution. 2. Advanced metastatic prostate cancer. 3. Severe pancytopenia. 4. Extremely poor physical condition. With severe maceration. 5. C. difficile colitis. Continue current supportive care. Prognosis is extremely poor, hospice should be considered. Consultation Date/Type/Reason Admit Date/Time Sep 06, 2016 at 22:01 Initial Consult Date 10/29/16 Type of Consultation: Pulmonary Referring Provider: TIMOTHY MARAVILLA MD 24 HR Interval Summary Free Text/Dictation Patient's mental status is slightly improved. He opens eyes on name calling. Does not appear to be in any distress. General examination; elderly male, somewhat arousable. Currently in no distress. Exam/Review of Systems Vital Signs Vitals Vital Signs Date Time Temp Pulse Resp B/P Pulse Ox O2 Delivery O2 Flow Rate FiO2 11/02/16 12:14 97 11/02/16 11:49 98.4 20 121/81 100 11/02/16 10:59 5.0 28 11/02/16 08:00 Simple Mask Intake and Output 11/01/16 11/01/16 11/02/16 15:00 23:00 07:00 Intake Total 1000 ml 150 ml Output Total 600 ml 800 ml Balance 400 ml -650 ml Exam HEENT examination; supple neck, no JVD. Patient is edentulous. Pupils are small bilaterally. No stridor heard over trachea. Chest examination; diminished but clear breath sounds. S1-S2 audible, no murmurs. Abdomen examination; scaphoid, bowel sounds audible. No organomegaly felt. Extremity examination; no edema. ACADEMIC VICE PRESIDENT examination; patient is minimally responsive. Results Result Diagram: 11/02/16 0630 11/02/16 0630 Results 24 hrs Laboratory Tests Test 11/01/16 12:50 11/01/16 18:40 11/01/16 21:00 11/02/16 00:58 Hematocrit 21.9 L 23.7 L 22.1 L Hemoglobin 7.4 L 8.1 L 7.7 L Gentamicin Level Trough < 0.6 L Test 11/02/16 06:30 Anisocytosis 1+ Band Neutrophils % 21.0 H Basophils # 0.0 Basophils % 1.0 Blood Morphology Comment Blood Urea Nitrogen 7 Creatinine 0.34 L Differential Comment MANUAL DIFF Eosinophils # Eosinophils % Hematocrit 22.1 L Hemoglobin 7.6 L Lymphocytes # 0.2 L Lymphocytes % 16.0 Mean Corpuscular Hemoglobin 29.1 Mean Corpuscular Hemoglobin Concent 34.4 Mean Corpuscular Volume 84.7 Mean Platelet Volume 10.0 # Monocytes # 0.1 L Monocytes % 9.0 Myelocytes # 0.0 Myelocytes % 1.0 H Neutrophils # 0.6 L Neutrophils % 52.0 Nucleated Red Blood Cells # Nucleated Red Blood Cells % Platelet Count 20 #*L Platelet Estimate PLT APPEAR DECREASED Red Blood Count 2.61 L Red Cell Distribution Width 15.6 H White Blood Count 1.2 #L Medications Medications Current Medications Ondansetron HCl (Zofran Tab) 4 mg Q6H PRN PO NAUSEA AND/OR VOMITING Last administered on 10/19/16 18:17; Admin Dose 4 MG; Start 09/07/16 at 00:00 Calcium/Vitamin D (Oyster Shell/ Vit-D (500/200)) 1 tab BID PO Last administered on 11/02/16 09:20; Admin Dose 1 TAB; Start 09/12/16 at 14:00 Bisacodyl (Dulcolax Supp) 10 mg DAILY PRN [place] CONSTIPATION Last administered on 10/07/16 03:07; Admin Dose 10 MG; Start 10/07/16 at 03:00 Dexamethasone (Decadron) 4 mg Q6H IV Last administered on 11/02/16 03:03; Admin Dose 4 MG; Start 10/29/16 at 03:45 Acetaminophen (Tylenol Supp) 650 mg Q6H PRN [place] TEMP>100; Start 11/02/16 at 11: 30 Albuterol/ Ipratropium 3 ml 3 ml Q6H PRN HHN SHORTNESS OF BREATH/WHEEZE; Start 11/02/16 at 11:30 Hydromorphone HCl/ Dextrose (Dilaudid/D5W) 50 ml @ 1 mls/hr TITRATE IVPB ; Start 11/02/16 at 12:30 Ondansetron HCl (Zofran Inj) 4 mg Q6H PRN IV NAUSEA AND/OR VOMITING; Start at 11:30 Pantoprazole (Protonix Iv) 40 mg BID@06,18 IV ; Start 11/02/16 at 18:00 Lorazepam (Ativan) 1 mg Q4H PRN IV ANXIETY; Start 11/02/16 at 11:30 Atropine Sulfate (Atropine Sulfate) 2 drop Q2H PRN [place] SECRETIONS; Start at 11:30 JORDAN NOVOA Nov 02, 2016 12:39
[2016-11-02] MEDS: HYDROmorphONE 50 MG in DEXTROSE 5% 45 ML IVPB SCH ×4 (13:24→17:55)
--- NOTE | 2016-11-02 13:25 | CONS ---
Date/Time of Note Date/Time of Note DATE: 11/02/16 TIME: 13:24 Assessment/Plan Assessment/Plan Chief Complaint/Hosp Course SUBJECTIVE: No acute events overnight. No fevers. The patient is lying comfortably in bed. MICROBIOLOGY: Urine culture grew Proteus mirabilis, susceptible to cefotaxime, ampicillin, and tobramycin, Bactrim, Gentamicin. INDWELLINGS: White, PICC line, NG tube. ANTIMICROBIALS: 1. Gentamicin. 2. Fluconazole. 3. Vancomycin. 4. Oral Flagyl. 5. Oral Questran. 6. Dificid. PHYSICAL EXAMINATION: GENERAL: This is a cachectic elderly man who is awake, in no distress. HEENT: Head atraumatic, normocephalic. Sclerae anicteric. Buccal mucosa dry. NECK: Supple, trachea midline. CHEST: Rise symmetrical. Breath sounds diminished to bases. HEART: S1, S2. ABDOMEN: Soft, bowel tones present. EXTREMITIES: No cyanosis or edema. ASSESSMENT: 1. Recurrent urinary tract infection. 2. Persistent and ongoing C. difficile colitis. 3. Metastatic prostate carcinoma. 4. Severe cachexia with severe decompensated state. 5. History of methicillin-resistant Staphylococcus aureus urinary tract infection. PLAN: Clinically unchanged, being evaluated by hospice, will sign off [facility] staff Problems: Consultation Date/Type/Reason Admit Date/Time Sep 06, 2016 at 22:01 Initial Consult Date 09/08/16 Type of Consultation: id Referring Provider: TIMOTHY MARAVILLA MD Exam/Review of Systems Vital Signs Vitals Vital Signs Date Time Temp Pulse Resp B/P Pulse Ox O2 Delivery O2 Flow Rate FiO2 11/02/16 12:14 97 11/02/16 11:49 98.4 20 121/81 100 11/02/16 10:59 5.0 28 11/02/16 08:00 Simple Mask Intake and Output 11/01/16 11/01/16 11/02/16 15:00 23:00 07:00 Intake Total 1000 ml 150 ml Output Total 600 ml 800 ml Balance 400 ml -650 ml Results Result Diagram: 11/02/16 0630 11/02/16 0630 Results 24 hrs Laboratory Tests Test 11/01/16 18:40 11/01/16 21:00 11/02/16 00:58 11/02/16 06:30 Hematocrit 23.7 L 22.1 L 22.1 L Hemoglobin 8.1 L 7.7 L 7.6 L Gentamicin Level Trough < 0.6 L Anisocytosis 1+ Band Neutrophils % 21.0 H Basophils # 0.0 Basophils % 1.0 Blood Morphology Comment Blood Urea Nitrogen 7 Creatinine 0.34 L Differential Comment MANUAL DIFF Eosinophils # Eosinophils % Lymphocytes # 0.2 L Lymphocytes % 16.0 Mean Corpuscular Hemoglobin 29.1 Mean Corpuscular Hemoglobin Concent 34.4 Mean Corpuscular Volume 84.7 Mean Platelet Volume 10.0 # Monocytes # 0.1 L Monocytes % 9.0 Myelocytes # 0.0 Myelocytes % 1.0 H Neutrophils # 0.6 L Neutrophils % 52.0 Nucleated Red Blood Cells # Nucleated Red Blood Cells % Platelet Count 20 #*L Platelet Estimate PLT APPEAR DECREASED Red Blood Count 2.61 L Red Cell Distribution Width 15.6 H White Blood Count 1.2 #L Medications Medications Current Medications Ondansetron HCl (Zofran Tab) 4 mg Q6H PRN PO NAUSEA AND/OR VOMITING Last administered on 10/19/16 18:17; Admin Dose 4 MG; Start 09/07/16 at 00:00 Calcium/Vitamin D (Oyster Shell/ Vit-D (500/200)) 1 tab BID PO Last administered on 11/02/16 09:20; Admin Dose 1 TAB; Start 09/12/16 at 14:00 Bisacodyl (Dulcolax Supp) 10 mg DAILY PRN [place] CONSTIPATION Last administered on 10/07/16 03:07; Admin Dose 10 MG; Start 10/07/16 at 03:00 Dexamethasone (Decadron) 4 mg Q6H IV Last administered on 11/02/16 03:03; Admin Dose 4 MG; Start 10/29/16 at 03:45 Acetaminophen (Tylenol Supp) 650 mg Q6H PRN [place] TEMP>100; Start 11/02/16 at 11: 30 Albuterol/ Ipratropium 3 ml 3 ml Q6H PRN HHN SHORTNESS OF BREATH/WHEEZE; Start 11/02/16 at 11:30 Hydromorphone HCl/ Dextrose (Dilaudid/D5W) 50 ml @ 1 mls/hr TITRATE IVPB ; Start 11/02/16 at 12:30 Ondansetron HCl (Zofran Inj) 4 mg Q6H PRN IV NAUSEA AND/OR VOMITING; Start at 11:30 Pantoprazole (Protonix Iv) 40 mg BID@06,18 IV ; Start 11/02/16 at 18:00 Lorazepam (Ativan) 1 mg Q4H PRN IV ANXIETY; Start 11/02/16 at 11:30 Atropine Sulfate (Atropine Sulfate) 2 drop Q2H PRN [place] SECRETIONS; Start at 11:30 EUNICE GUNTER NP Nov 02, 2016 13:25
[2016-11-02] MEDS: PANTOPRAZOLE 40 MG INJ IV SCH (18:00)
[2016-11-03] VITALS: BP 118/73; PULSE 114; RESP 20
[2016-11-03] MEDS: DEXAMETHASONE 4 MG/ML 1 ML INJ IV SCH ×4 (01:32→20:10)
[2016-11-03] MEDS: HYDROmorphONE 50 MG in DEXTROSE 5% 45 ML IVPB SCH ×3 (02:43→21:31)
[2016-11-03 03:48] VITALS: BP 103/68; RESP 16
[2016-11-03] MEDS: PANTOPRAZOLE 40 MG INJ IV SCH ×2 (05:18→18:42)
[2016-11-03 07:48] VITALS: BP 121/70; RESP 20
--- NOTE | 2016-11-03 08:27 | PN ---
DATE: 11/03/2016 SUBJECTIVE: Gross hematuria. The patient has metastatic prostate cancer and is on chemotherapy. The patient is sleeping most of the time, and he appeared to be comfortable at the present, even though he does complain of pain most of the time. OBJECTIVE: VITAL SIGNS: His temperature is 99.5, respirations 20, pulse 125, blood pressure 121/70. ABDOMEN: Soft. The White catheter is draining clear to blood-tinged urine. LABORATORY DATA: CBC shows a white count of 1.2 and the hemoglobin 7.6, hematocrit 22.1. BUN is 7, creatinine 0.34. Urine culture is 8 days old and that was showing Proteus mirabilis. RECOMMENDATION: From a urological standpoint, at the present, is basically keep the White catheter in and watch him and there is certainly no plan for any intervention. Dictated By: LINDSAY GUIDO/ADRIANA Conf#: [id number] DID#: [id number]
[2016-11-03 11:35] VITALS: BP 97/57; RESP 18
[2016-11-03 16:00] VITALS: BP 100/60; RESP 16
--- NOTE | 2016-11-03 17:41 | HP ---
DATE OF ADMISSION: 09/06/2016 LEVEL OF CARE: [facility] under [facility]. PRIMARY HOSPITAL DIAGNOSES: Metastatic prostate cancer, comorbid dysphagia, severe pancytopenia. CHIEF COMPLAINT AND HISTORY OF PRESENT ILLNESS: The patient is a 60-year-old gentleman with advance d metastatic prostate cancer with extensive sclerotic metastatic disease, status post recent chemoth erapy. The patient recently had a chest CT scan which revealed extensive sclerotic metastatic disea se throughout the axilla and visualized ____ and increased aggressive periosteal reaction involving the bones of the pelvis. The patient has continued to decline and recently developed C. diff coliti s as well as continued to have diminished p.o. intake and generalized debility. The patient also re cently developed stridor which responded to a short course of IV steroids and also had possible voca l cord palsy. Was seen by Dr. Green, recommended tracheostomy. The patient also had not been eati ng and was on NG tube feed. I met with the patient and his family yesterday and goals of care discu ssed. According to them, the patient has a poor quality of life for the last several months. He is unable to walk, unable to eat and has extensive metastatic disease; therefore, they requested hospi ce eval. The patient was seen by hospice today and has been admitted for pain control at [facility] level of care. Patient remains awake and responsive, but has increasing cachexia, has generalized pain. PAST MEDICAL HISTORY: The patient is status post cord compression due to metastatic prostate cancer , status post radiation treatment. ALLERGIES: NONE. SOCIAL HISTORY: No smoking, no alcohol. FAMILY HISTORY: Noncontributory. PHYSICAL EXAMINATION: GENERAL: The patient to be weak and frail, but awake. VITAL SIGNS: Temperature 99, pulse 123, respirations 20, blood pressure 130/93, O2 saturation 100% on 5 liter face mask. HEENT: Atraumatic, normocephalic. Conjunctivae and lids are normal. Temporal muscle wasting evide nt. Nose and ears normal. Oropharynx grossly negative. NECK: ____. No mass, no JVD. CHEST: Revealed few coarse breath sounds. No use of accessory muscles. CARDIOVASCULAR: Regular rate and rhythm. S1, S2 normal. No murmur. ABDOMEN: Soft, nondistended, nontender. EXTREMITIES: No leg edema. NEUROLOGIC: The patient is weak, frail, awake, follows simple commands, has generalized weakness. SKIN: Without acute rash. LABORATORY DATA: Done today: WBC 1.2, hemoglobin 10.6, platelets 20. Chemistry: Sodium 128, pota ssium 4.3, BUN 8, creatinine 0.2, albumin 2.3. IMPRESSION: 1. Metastatic prostate cancer, status post radiation therapy for cord compression, now status post chemotherapy. 2. Severe pancytopenia. 3. Malnutrition. 4. Vocal cord palsy, unilateral. PLAN: The patient will be admitted under [facility] level of care and patient has high tolerance to narcot ics and was on methadone as well as IV Dilaudid. Patient will be started on IV Dilaudid drip which will be titrated up for comfort care. The patient also be given IV Ativan for anxiety, atropine mary jo ps for secretion, and DuoNeb for chest congestion and shortness of breath. The patient has anemia a nd thrombocytopenia, remains at risk for GI bleed. Will continue IV Protonix. Plan of care discuss ed with the desk nurse as well as staff at [facility]. I also spoke with the chela ent's sister regarding plan of care. Dictated By: TIMOTHY LEWIS/NTS Conf#: [id number] DID#: [id number]
--- NOTE | 2016-11-03 17:53 | PN ---
DATE: 11/03/2016 LEVEL OF CARE: [facility]. SUBJECTIVE: Followup on metastatic prostate cancer, anemia and thrombocytopenia. The patient phyllis nues to have increasing pain and therefore, Dilaudid dose has been increased to 2.5 mg an hour. The patient remains hypoxemic requiring 5 liters of oxygen to maintain adequate oxygenation. The patie nt did have intermittent fever, also became progressively more tachycardic. PHYSICAL EXAMINATION: GENERAL: Revealed the patient to be sleepy but easily arousable. VITAL SIGNS: Temperature 98.1, pulse 116, respirations 16, blood pressure 100/60, O2 saturation 99% on 5 liters nasal cannula. HEENT: No eye discharge or redness. Nose and ears normal externally. NECK: No mass. CHEST: Revealed a few coarse breath sounds, diminished air entry at bases. CARDIOVASCULAR: S1, S2 normal. No murmur. ABDOMEN: Soft, nondistended. EXTREMITIES: No edema. Generalized muscular atrophy. IMPRESSION: 1. Metastatic prostate cancer with pancytopenia. We will continue IV Protonix, IV Decadron, IV Dil audid and DuoNeb. The patient is also on atropine drops for secretion as well as Ativan for anxiety . We will continue to optimize comfort care. The patient has no stridor or croup. Therefore, we w ill decrease the dose of Decadron to twice a day. The patient remains terminally ill. Dictated By: TIMOTHY LEWIS/ADRIANA Conf#: [id number] DID#: [id number]
--- NOTE | 2016-11-03 17:54 | CONS ---
Date/Time of Note Date/Time of Note DATE: 11/03/16 TIME: 17:54 Assessment/Plan Assessment/Plan Chief Complaint/Hosp Course Metastatic prostate cancer. FAMILY CONFERENCE RE DX, PROGNOSIS AND TREATMENT OPTIONS THEY DECIDED COMFORT CARE NEUTROPENIA POST NEUPOGEN ANEMIA POST PRBC MONITOR CLOSELY OBSERVE FOR BLEEDING AND HEMOLYSIS Thrombocytopenia. Continue to monitor platelets. transfuse as needed PANCYTOPENIA MONITOR DECONDITIONING PT Acute on chronic back pain. PAIN CONTROL C DIFF COLITIS ATB PER ID Problems: Consultation Date/Type/Reason Admit Date/Time Sep 06, 2016 at 22:01 Initial Consult Date 09/08/16 Referring Provider: TIMOTHY MARAVILLA MD 24 HR Interval Summary Free Text/Dictation WEAK FAMILY WANT COMFORT CARE Exam/Review of Systems Vital Signs Vitals Vital Signs Date Time Temp Pulse Resp B/P Pulse Ox O2 Delivery O2 Flow Rate FiO2 11/03/16 16:00 98.1 116 16 100/60 99 11/03/16 04:53 5.0 11/03/16 00:00 Nasal Cannula 11/02/16 14:41 28 Intake and Output 11/02/16 11/02/16 11/03/16 15:00 23:00 07:00 Intake Total 55.5 ml 10 ml Output Total 800 ml 450 ml Balance -744.5 ml -440 ml Exam GENERAL: The patient is lethargic but arousable. HEENT: No eye discharge. Oropharynx revealed dry mucosa. NECK: No mass. LUNGS: Occasional coarse breath sounds. CARDIOVASCULAR: S1, S2 normal. Sinus tachycardia. ABDOMEN: Soft, nondistended, nontender. EXTREMITIES: No leg edema. Cachectic extremities. NEUROLOGIC: The patient is lethargic but arousable. Results Result Diagram: 11/02/16 0630 11/02/16 0630 Medications Medications Current Medications Ondansetron HCl (Zofran Tab) 4 mg Q6H PRN PO NAUSEA AND/OR VOMITING Last administered on 10/19/16 18:17; Admin Dose 4 MG; Start 09/07/16 at 00:00 Bisacodyl (Dulcolax Supp) 10 mg DAILY PRN [place] CONSTIPATION Last administered on 10/07/16 03:07; Admin Dose 10 MG; Start 10/07/16 at 03:00 Acetaminophen (Tylenol Supp) 650 mg Q6H PRN [place] TEMP>100; Start 11/02/16 at 11: 30 Albuterol/ Ipratropium 3 ml 3 ml Q6H PRN HHN SHORTNESS OF BREATH/WHEEZE; Start 11/02/16 at 11:30 Hydromorphone HCl/ Dextrose (Dilaudid/D5W) 50 ml @ 1 mls/hr TITRATE IVPB Last administered on 11/03/16 05:18; Admin Dose 2.5 MLS/HR; Start 11/02/16 at 12:30 Ondansetron HCl (Zofran Inj) 4 mg Q6H PRN IV NAUSEA AND/OR VOMITING Last administered on 11/02/16 17:54; Admin Dose 4 MG; Start 11/02/16 at 11:30 Pantoprazole (Protonix Iv) 40 mg BID@06,18 IV Last administered on 11/03/16 05 :18; Admin Dose 40 MG; Start 11/02/16 at 18:00 Lorazepam (Ativan) 1 mg Q4H PRN IV ANXIETY; Start 11/02/16 at 11:30 Atropine Sulfate (Atropine Sulfate) 2 drop Q2H PRN SL SECRETIONS; Start at 11:30 Dexamethasone (Decadron) 4 mg BID IV ; Start 11/03/16 at 21:00; Status UNV JARAD CHOI MD Nov 03, 2016 17:54
[2016-11-03 20:16] VITALS: BP 96/53; RESP 18
[2016-11-04] VITALS (7 sets, daily range): BP systolic 87–108; BP diastolic 50–66; PULSE 120; RESP 11–21
[2016-11-04] MEDS: HYDROmorphONE 50 MG in DEXTROSE 5% 45 ML IVPB SCH ×5 (00:48→17:50)
[2016-11-04] MEDS: PANTOPRAZOLE 40 MG INJ IV SCH ×2 (05:50→17:50)
[2016-11-04] MEDS: DEXAMETHASONE 4 MG/ML 1 ML INJ IV SCH ×2 (09:00→21:40)
--- NOTE | 2016-11-04 15:12 | PN ---
DATE: 11/04/2016 LEVEL OF CARE: [facility]. PRIMARY DIAGNOSIS: Diagnosis of metastatic prostate cancer. SUBJECTIVE: The patient since yesterday has continued to decline. Patient's blood pressure is in l ow 90s now. The patient also has progressively become more lethargic. The patient since yesterday has continued to complain of pain, generalized, and therefore, Dilaudid dose was increased to 4 mg a n hour. The patient also has been receiving atropine drops for secretions. The patient also has be come progressively more hypoxemic with O2 saturation 96% on 5 liters nasal cannula. PHYSICAL EXAMINATION: GENERAL: The patient is lethargic but arousable. VITAL SIGNS: T-max 100, pulse 122, respiration 18. Last blood pressure 91/56, O2 saturation 96% on 5 liters nasal cannula. HEENT: No eye discharge. Oropharynx revealed dry mucosa. NECK: No mass. LUNGS: Occasional coarse breath sounds. CARDIOVASCULAR: S1, S2 normal. Sinus tachycardia. ABDOMEN: Soft, nondistended, nontender. EXTREMITIES: No leg edema. Cachectic extremities. NEUROLOGIC: The patient is lethargic but arousable. IMPRESSION: Metastatic breast cancer. Continue IV Dilaudid drip at 4 mg an hour and will titrate u p for comfort care and continue IV Decadron and IV Protonix. Patient does not have any stridor and no reported GI bleed. Terminal symptoms are being controlled with current management. Dictated By: TIMOTHY LEWIS/ADRIANA Conf#: [id number] DID#: [id number]
--- NOTE | 2016-11-04 20:26 | CONS ---
Date/Time of Note Date/Time of Note DATE: 11/04/16 TIME: 20:24 Assessment/Plan Assessment/Plan Chief Complaint/Hosp Course Metastatic prostate cancer. FAMILY CONFERENCE RE DX, PROGNOSIS AND TREATMENT OPTIONS COMFORT CARE NEUTROPENIA POST NEUPOGEN ANEMIA POST PRBC MONITOR CLOSELY OBSERVE FOR BLEEDING AND HEMOLYSIS Thrombocytopenia. Continue to monitor platelets. transfuse as needed PANCYTOPENIA MONITOR DECONDITIONING PT Acute on chronic back pain. PAIN CONTROL C DIFF COLITIS RE- COMFORT CARE Problems: Consultation Date/Type/Reason Admit Date/Time Sep 06, 2016 at 22:01 Initial Consult Date 09/08/16 Referring Provider: TIMOTHY MARAVILLA MD 24 HR Interval Summary Free Text/Dictation SUBJECTIVE: The patient since yesterday has continued to decline. Patient's blood pressure is in low 90s now. The patient also has progressively become more lethargic. The patient since yesterday has continued to complain of pain, generalized, and therefore, Dilaudid dose was increased to 4 mg an hour. The patient also has been receiving atropine drops for secretions. The patient also has become progressively more hypoxemic with O2 saturation 96% on 5 liters nasal cannula. Exam/Review of Systems Vital Signs Vitals Vital Signs Date Time Temp Pulse Resp B/P Pulse Ox O2 Delivery O2 Flow Rate FiO2 11/04/16 16:35 98.7 119 11 87/60 94 11/04/16 14:30 5.0 11/04/16 02:00 Nasal Cannula 11/02/16 14:41 28 Intake and Output 11/03/16 11/03/16 11/04/16 15:00 23:00 07:00 Intake Total 120 ml 30 ml Output Total 350 ml Balance 120 ml -320 ml Exam PHYSICAL EXAMINATION: GENERAL: The patient is lethargic but arousable. HEENT: No eye discharge. Oropharynx revealed dry mucosa. NECK: No mass. LUNGS: Occasional coarse breath sounds. CARDIOVASCULAR: S1, S2 normal. Sinus tachycardia. ABDOMEN: Soft, nondistended, nontender. EXTREMITIES: No leg edema. Cachectic extremities. NEUROLOGIC: The patient is lethargic but arousable. Results Result Diagram: 11/02/16 0630 11/02/16 0630 Medications Medications Current Medications Ondansetron HCl (Zofran Tab) 4 mg Q6H PRN PO NAUSEA AND/OR VOMITING Last administered on 10/19/16 18:17; Admin Dose 4 MG; Start 09/07/16 at 00:00 Bisacodyl (Dulcolax Supp) 10 mg DAILY PRN [place] CONSTIPATION Last administered on 10/07/16 03:07; Admin Dose 10 MG; Start 10/07/16 at 03:00 Acetaminophen (Tylenol Supp) 650 mg Q6H PRN [place] TEMP>100 Last administered on 20:10; Admin Dose 650 MG; Start 11/02/16 at 11:30 Albuterol/ Ipratropium 3 ml 3 ml Q6H PRN HHN SHORTNESS OF BREATH/WHEEZE; Start 11/02/16 at 11:30 Hydromorphone HCl/ Dextrose (Dilaudid/D5W) 50 ml @ 1 mls/hr TITRATE IVPB Last administered on 11/04/16 17:50; Admin Dose 4 MLS/HR; Start 11/02/16 at 12:30 Ondansetron HCl (Zofran Inj) 4 mg Q6H PRN IV NAUSEA AND/OR VOMITING Last administered on 11/02/16 17:54; Admin Dose 4 MG; Start 11/02/16 at 11:30 Pantoprazole (Protonix Iv) 40 mg BID@06,18 IV Last administered on 11/04/16 17 :50; Admin Dose 40 MG; Start 11/02/16 at 18:00 Lorazepam (Ativan) 1 mg Q4H PRN IV ANXIETY; Start 11/02/16 at 11:30 Atropine Sulfate (Atropine Sulfate) 2 drop Q2H PRN SL SECRETIONS Last administered on 11/04/16 00:50; Admin Dose 2 DROP; Start 11/02/16 at 11:30 Dexamethasone (Decadron) 4 mg BID IV Last administered on 11/04/16 09:00; Admin Dose 4 MG; Start 11/03/16 at 21:00 JARAD CHOI MD Nov 04, 2016 20:26
[2016-11-05] MEDS: PANTOPRAZOLE 40 MG INJ IV SCH ×2 (05:44→17:49)
[2016-11-05 07:38] VITALS: BP 71/50; RESP 18
--- NOTE | 2016-11-05 09:07 | PN ---
Date/Time of Note Date/Time of Note DATE: 11/05/16 TIME: 09:06 Assessment/Plan VTE Prophylaxis VTE Prophylaxis Intervention: other Lines/Catheters IV Catheter Type (from Nrsg): PICC Line Central line still needed: Yes Urinary Cath still in place: Yes Reason Cath still needed: skin wounds contaminated by urine Assessment/Plan Chief Complaint/Hosp Course 1. Clostridium difficile colitis. Contact isolation. Patient is followed by Dr. Harini rosas from infectious disease standpoint. Patient is currently on rifaximin and Dificid. 2. Metastatic prostate cancer. Dr. Hernandez is following patient in oncology consultation. Continue chemotherapy and steroids. 3. Thrombocytopenia. Continue to monitor platelets. 4. Acute on chronic back pain. Dr. Ferguson is following the patient in pain management. Continue methadone and Dilaudid p.r.n. for breakthrough pain. 5. Anemia, this post blood transfusion, continue to monitor hemoglobin and hematocrit. 6. MRSA UTI, status post treatment 7. Protein calorie malnutrition, continue Megace, continue high-protein and high-calorie diet, continue tube feeding via NG tube. Continue Protonix for peptic ulcer disease prophylaxis. Problems: Subjective 24 Hr Interval Summary Free Text/Dictation Patient resting comfortably Exam/Review of Systems Vital Signs Vitals Vital Signs Date Time Temp Pulse Resp B/P Pulse Ox O2 Delivery O2 Flow Rate FiO2 11/05/16 07:38 98.1 119 18 71/50 95 11/04/16 20:00 Nasal Cannula 5.0 11/02/16 14:41 28 Intake and Output 11/04/16 11/04/16 11/05/16 15:00 23:00 07:00 Intake Total 20 ml Output Total 150 ml 200 ml Balance -130 ml -200 ml Exam Constitutional: well developed Head: atraumatic, normocephalic Neck: supple Respiratory: diminished breath sounds Cardiovascular: regular rate and rhythm Gastrointestinal: non-tender, soft Results Result Diagram: 11/02/1630 11/02/16629 Medications Medications Current Medications Ondansetron HCl (Zofran Tab) 4 mg Q6H PRN PO NAUSEA AND/OR VOMITING Last administered on 10/19/16 18:17; Admin Dose 4 MG; Start 09/07/16 at 00:00 Bisacodyl (Dulcolax Supp) 10 mg DAILY PRN [place] CONSTIPATION Last administered on 10/07/16 03:07; Admin Dose 10 MG; Start 10/07/16 at 03:00 Acetaminophen (Tylenol Supp) 650 mg Q6H PRN [place] TEMP>100 Last administered on 20:10; Admin Dose 650 MG; Start 11/02/16 at 11:30 Albuterol/ Ipratropium 3 ml 3 ml Q6H PRN HHN SHORTNESS OF BREATH/WHEEZE; Start 11/02/16 at 11:30 Hydromorphone HCl/ Dextrose (Dilaudid/D5W) 50 ml @ 1 mls/hr TITRATE IVPB Last administered on 11/04/16 17:50; Admin Dose 4 MLS/HR; Start 11/02/16 at 12:30 Ondansetron HCl (Zofran Inj) 4 mg Q6H PRN IV NAUSEA AND/OR VOMITING Last administered on 11/02/16 17:54; Admin Dose 4 MG; Start 11/02/16 at 11:30 Pantoprazole (Protonix Iv) 40 mg BID@06,18 IV Last administered on 11/05/16 05 :44; Admin Dose 40 MG; Start 11/02/16 at 18:00 Lorazepam (Ativan) 1 mg Q4H PRN IV ANXIETY; Start 11/02/16 at 11:30 Atropine Sulfate (Atropine Sulfate) 2 drop Q2H PRN SL SECRETIONS Last administered on 11/04/16 00:50; Admin Dose 2 DROP; Start 11/02/16 at 11:30 Dexamethasone (Decadron) 4 mg BID IV Last administered on 11/04/16 21:40; Admin Dose 4 MG; Start 11/03/16 at 21:00 NASREEN DAMON Nov 05, 2016 09:07
[2016-11-05] MEDS: DEXAMETHASONE 4 MG/ML 1 ML INJ IV SCH ×3 (09:23→21:00)
[2016-11-05] MEDS: HYDROmorphONE 50 MG in DEXTROSE 5% 45 ML IVPB SCH (09:44)
--- NOTE | 2016-11-05 11:45 | PN ---
DATE: 11/05/2016 SUBJECTIVE: Metastatic prostate cancer. The patient had gross hematuria earlier but now the urine is clear and the White catheter is in place and draining clear urine. OBJECTIVE: VITAL SIGNS: Temperature is 98.1, pulse is 119, the blood pressure is 71/50, and respiration is 18. GENERAL: The patient is sleepy and appears lethargic. IMPRESSION: Urological ____ metastatic prostate cancer. Patient has been on chemotherapy and had some hematuri a that has cleared. RECOMMENDATION: To keep the White catheter in and supportive treatment for this patient. Dictated By: LINDSAY GUIDO/ADRIANA Conf#: [id number] DID#: [id number]
[2016-11-05] MEDS ORDERED: VITAMIN A & D 5 GM OINT PACKET TOP ONE (14:53)
[2016-11-05 20:00] VITALS: BP 46/29; RESP 12
--- NOTE | 2016-11-05 21:07 | CONS ---
Date/Time of Note Date/Time of Note DATE: 11/05/16 TIME: 21:06 Assessment/Plan Assessment/Plan Chief Complaint/Hosp Course Metastatic prostate cancer. FAMILY CONFERENCE RE DX, PROGNOSIS AND TREATMENT OPTIONS COMFORT CARE NEUTROPENIA POST NEUPOGEN ANEMIA POST PRBC MONITOR CLOSELY OBSERVE FOR BLEEDING AND HEMOLYSIS Thrombocytopenia. Continue to monitor platelets. transfuse as needed PANCYTOPENIA MONITOR DECONDITIONING PT Acute on chronic back pain. PAIN CONTROL C DIFF COLITIS RE- COMFORT CARE Problems: Consultation Date/Type/Reason Admit Date/Time Sep 06, 2016 at 22:01 Initial Consult Date 09/08/16 Referring Provider: TIMOTHY MARAVILLA MD 24 HR Interval Summary Free Text/Dictation COMFORTABLE COUNT REVIEWED The patient had gross hematuria earlier but now the urine is clear and the White catheter is in place and draining clear urine. Exam/Review of Systems Vital Signs Vitals Vital Signs Date Time Temp Pulse Resp B/P Pulse Ox O2 Delivery O2 Flow Rate FiO2 11/05/16 20:18 5.0 11/05/16 20:00 97.6 67 12 46/29 83 11/05/16 09:00 Nasal Cannula 11/02/16 14:41 28 Intake and Output 11/04/16 11/04/16 11/05/16 15:00 23:00 07:00 Intake Total 20 ml Output Total 150 ml 200 ml Balance -130 ml -200 ml Exam GENERAL: The patient is lethargic but arousable. HEENT: No eye discharge. Oropharynx revealed dry mucosa. NECK: No mass. LUNGS: Occasional coarse breath sounds. CARDIOVASCULAR: S1, S2 normal. Sinus tachycardia. ABDOMEN: Soft, nondistended, nontender. EXTREMITIES: No leg edema. Cachectic extremities. Results Result Diagram: 11/02/1630 11/02/1630 Medications Medications Current Medications Ondansetron HCl (Zofran Tab) 4 mg Q6H PRN PO NAUSEA AND/OR VOMITING Last administered on 10/19/16 18:17; Admin Dose 4 MG; Start 09/07/16 at 00:00 Bisacodyl (Dulcolax Supp) 10 mg DAILY PRN [place] CONSTIPATION Last administered on 10/07/16 03:07; Admin Dose 10 MG; Start 10/07/16 at 03:00 Acetaminophen (Tylenol Supp) 650 mg Q6H PRN [place] TEMP>100 Last administered on 20:10; Admin Dose 650 MG; Start 11/02/16 at 11:30 Albuterol/ Ipratropium 3 ml 3 ml Q6H PRN HHN SHORTNESS OF BREATH/WHEEZE; Start 11/02/16 at 11:30 Hydromorphone HCl/ Dextrose (Dilaudid/D5W) 50 ml @ 1 mls/hr TITRATE IVPB Last administered on 11/05/16 09:44; Admin Dose 4 MLS/HR; Start 11/02/16 at 12:30 Ondansetron HCl (Zofran Inj) 4 mg Q6H PRN IV NAUSEA AND/OR VOMITING Last administered on 11/02/16 17:54; Admin Dose 4 MG; Start 11/02/16 at 11:30 Pantoprazole (Protonix Iv) 40 mg BID@06,18 IV Last administered on 11/05/16 17 :49; Admin Dose 40 MG; Start 11/02/16 at 18:00 Lorazepam (Ativan) 1 mg Q4H PRN IV ANXIETY; Start 11/02/16 at 11:30 Atropine Sulfate (Atropine Sulfate) 2 drop Q2H PRN [place] SECRETIONS Last administered on 11/04/16 00:50; Admin Dose 2 DROP; Start 11/02/16 at 11:30 Dexamethasone (Decadron) 4 mg BID IV Last administered on 11/05/16 09:44; Admin Dose 4 MG; Start 11/03/16 at 21:00 JARAD CHOI MD Nov 05, 2016 21:07
== END 2016-11-04 21:00 | disposition expired | DRG 640 ==
LOC: E/R 15:48 → PP2 22:01 → MS1 09-11 21:08 → TEL 10-29 04:30 → MS2 11-04 15:55
PROVIDERS: ADMIT Internal Medicine; ATTEND Internal Medicine
PROC: 02HV33Z Insertion of Infusion Device into Superior Vena Cava, Percutaneous Approach (ICD-10-PCS; 2016-09-11)
PROC: 02HV33Z Insertion of Infusion Device into Superior Vena Cava, Percutaneous Approach (ICD-10-PCS; principal; 2016-09-21)
PROC: 3E04305 Introduction of Other Antineoplastic into Central Vein, Percutaneous Approach (ICD-10-PCS; 2016-09-29)
PROC: 0CJS8ZZ Inspection of Larynx, Via Natural or Artificial Opening Endoscopic (ICD-10-PCS; 2016-10-29)
DX: E86.0 Dehydration (principal); D65 Disseminated intravascular coagulation [defibrination syndrome]; A04.7 Enterocolitis due to Clostridium difficile; E41 Nutritional marasmus; D61.810 Antineoplastic chemotherapy induced pancytopenia; R64 Cachexia; C79.51 Secondary malignant neoplasm of bone; J38.02 Paralysis of vocal cords and larynx, bilateral; N39.0 Urinary tract infection, site not specified; Z68.1 Body mass index [BMI] 19.9 or less, adult; K62.5 Hemorrhage of anus and rectum; D69.6 Thrombocytopenia, unspecified; C61 Malignant neoplasm of prostate; E87.1 Hypo-osmolality and hyponatremia; I95.9 Hypotension, unspecified; E83.51 Hypocalcemia; D64.9 Anemia, unspecified; G89.3 Neoplasm related pain (acute) (chronic); Z51.5 Encounter for palliative care; E87.6 Hypokalemia; D70.9 Neutropenia, unspecified; R10.9 Unspecified abdominal pain; R11.2 Nausea with vomiting, unspecified; R06.1 Stridor; B95.62 Methicillin resistant Staphylococcus aureus infection as the cause of diseases classified elsewhere; R62.7 Adult failure to thrive; R31.0 Gross hematuria; J38.01 Paralysis of vocal cords and larynx, unilateral; R09.02 Hypoxemia; Z86.718 Personal history of other venous thrombosis and embolism
CPT/HCPCS: 36415; 36430; 36569; 36600; 70450; 71010; 71260; 72170; 74177; 76937; 80048; 80053; 80170; 80202; 81001; 81003; 82140; 82270; 82565; 82607; 82728; 82746; 82803; 82962; 83010; 83540; 83615; 83690; 84153; 84154; 84403; 84484; 84520; 85014; 85018; 85025; 85045; 85049; 85362; 85378; 85384; 85610; 85670; 85730; 86022; 86644; 86703; 86704; 86709; 86803; 86850; 86900; 86901; 86920; 87040; 87075; 87086; 87340; 87496; 92526; 92610; 93005; 93965; 94640; 94664; 97001; 97110; 97530; J3487; C1769; C9113; J0743; J1100; J1170; J1580; J1885; J1956; J2185; J2405; J3370; J3480; J7030; J7040; J7042; J7050; J7512; J9171; P9011; P9016; P9035; Q9967